=== PATIENT | male | born 1940 | race Caucasian/White ===

== ENCOUNTER 2016-03-27 21:55 | Inpatient (IN) | payer MEDICARE ==
[2016-03-27 22:51] LABS: ABSOLUTE LYMPHOCYTES (AUTO) 0.8 10^3/uL (0.5-4.7); ABSOLUTE MONOCYTES (AUTO) 1.2 10^3/uL (0.1-1.4); ABSOLUTE NEUT (AUTO) 7.1 10^3/uL (1.7-8.2); BASOPHILS % (AUTO) 0.2 % (0-2); EOSINOPHILS % (AUTO) 0.2 % (0-6); HEMATOCRIT 36.6 % (37.9-51.0); HEMOGLOBIN 12.2 g/dL (13.5-17.0); LYMPHOCYTES % (AUTO) 8.8 % (13-45); MEAN CORPUSCULAR HEMOGLOBIN 31.4 pg (27.0-33.4); MEAN CORPUSCULAR HGB CONC 33.3 g/dL (32.0-36.0); MEAN CORPUSCULAR VOLUME 94 fl (80-97); MONOCYTES % (AUTO) 13.6 % (3-13); RED BLOOD COUNT 3.89 10^6/uL (4.35-5.55); RED CELL DISTRIBUTION WIDTH 13.4 % (11.5-14.0); SEGMENTED NEUTROPHILS % (AUTO) 77.2 % (42-78); WHITE BLOOD COUNT 9.2 10^3/uL (4.0-10.5)
[2016-03-27 23:02] LABS: ALANINE AMINOTRANSFERASE 55 U/L (21-72); ALBUMIN 4.2 g/dL (3.5-5.0); ALKALINE PHOSPHATASE 69 U/L (38-126); ANION GAP 17 (5-19); ASPARTATE AMINO TRANSFERASE 64 U/L (17-59); BILIRUBIN,TOTAL 0.7 mg/dL (0.2-1.3); BLOOD UREA NITROGEN 50 mg/dL (7-20); CALCIUM 9.7 mg/dL (8.4-10.2); CARBON DIOXIDE 25 mmol/L (22-30); CHLORIDE 106 mmol/L (98-107); CREATINE KINASE 962 U/L (55-170); CREATININE RESULT 1.74 mg/dL (0.52-1.25); GLUCOSE 111 mg/dL (75-110); SODIUM 147.5 mmol/L (137-145); TOTAL PROTEIN 7.2 g/dL (6.3-8.2)
[2016-03-27 23:14] LABS: CREATINE KINASE MB 4.32 ng/mL (<4.55)
[2016-03-27 23:17] LABS: TROPONIN I 0.069 ng/mL
[2016-03-28 00:38] LABS: AMORPHOUS SEDIMENT,URINE TRACE /HPF; APPEARANCE,URINE CLOUDY; BILIRUBIN,URINE NEGATIVE (NEGATIVE); GLUCOSE, URINE NEGATIVE (NEGATIVE); KETONES,URINE NEGATIVE (NEGATIVE); LEUKOCYTE ESTERASE,URINE LARGE (NEGATIVE); NITRITE,URINE POSITIVE (NEGATIVE); PROTEIN,URINE 100 mg/dL (NEGATIVE); URINE SPECIFIC GRAVITY 1.024; UROBILINOGEN,URINE NEGATIVE mg/dL (<2.0)
[2016-03-28] MEDS ORDERED: CEFTRIAXONE 1 GM/D5W RTU 50 ML IV ONE (00:49)
[2016-03-28] MEDS ORDERED: NORMAL SALINE 1000 ML 500 ML IV ONE (00:49)
--- NOTE | 2016-03-28 04:35 | ER Document Report ---
ED General - General Chief Complaint: Fall Injury Stated Complaint: FALL,NECK PAIN Mode of Arrival: Medic Information source: Patient, Relative Notes: Patient is a 75-year-old male who presents to the ER today for fall today. Patient states that he remembers the fall and that he "slid off the couch" because he was apparently watching the neighbor but does not remember how he fell on the floor or what he hit. He does not think he hit his head but he is unsure. He is complaining of some neck pain at this time, some right hip pain. Family is present and states that patient also fell the day before. He lives by himself. Patient does not know if he's had a fever or not. Family states that he has been altered as they have caught him "staring off into space " and not answering questions appropriately when asked. They check on him apparently 1-3 times per day to give him his medications. They state that he is usually independent walking around at home without any issues. TRAVEL OUTSIDE OF THE [place] IN LAST 30 DAYS: No - Related Data Allergies/Adverse Reactions: No Known Allergies Allergy (Unverified 05/26/13 18:10) Home Medications: Current Home Medications Albuterol Sulfate [Ventolin Hfa] 1 - 2 puff IH Q4 PRN 03/28/16 [History] Aspirin 81 mg PO DAILY 03/28/16 [History] Atorvastatin Calcium 40 mg PO DAILY 03/28/16 [History] Carvedilol [Coreg] 1 tab PO Q12 03/28/16 [History] Cetirizine HCl [Zyrtec] 10 mg PO DAILY 03/28/16 [History] Cholecalciferol (Vitamin D3) [Vitamin D3] 03/28/16 [History] Finasteride 5 mg PO DAILY 03/28/16 [History] Furosemide 20 mg PO ASDIR PRN 03/28/16 [History] Lisinopril 10 mg PO DAILY 03/28/16 [History] Phenobarbital [Phenobarbital 64.8 Mg Tablet] 2 tab PO DAILY 03/28/16 [History] Tamsulosin HCl [Flomax 0.4 mg Cap.sr] 0.4 mg PO DAILY 03/28/16 [History] Umeclidinium [place] [Incruse Ellipta] 62.5 mcg IH 03/28/16 [History] Past Medical History - General Information source: Patient, Relative, Emergency Med Personnel - Social History Smoking Status: Current Every Day Smoker Frequency of alcohol use: None Drug Abuse: None Family History: Reviewed & Not Pertinent Patient has suicidal ideation: No Patient has homicidal ideation: No - Past Medical History Cardiac Medical History: Reports: Hx Heart Attack Pulmonary Medical History: Denies: Hx Tuberculosis Neurological Medical History: Reports: Hx Seizures Psychiatric Medical History: Denies: Hx Depression Past Surgical History: Reports: Hx Abdominal Surgery - perforated hernia, Hx Cardiac Surgery - STENT - Immunizations Hx Diphtheria, Pertussis, Tetanus Vaccination: Yes Hx Pneumococcal Vaccination: 01/02/11 Review of Systems - Review of Systems Constitutional: No symptoms reported EENT: No symptoms reported Cardiovascular: No symptoms reported Respiratory: No symptoms reported Gastrointestinal: No symptoms reported Genitourinary: No symptoms reported Male Genitourinary: No symptoms reported Musculoskeletal: See HPI Skin: No symptoms reported Hematologic/Lymphatic: No symptoms reported Neurological/Psychological: See HPI Physical Exam - Vital signs Vitals: Temp Pulse Resp BP Pulse Ox 99.4 F 84 21 H 90/55 L 96 03/27/16 22:00 03/27/16 22:00 03/27/16 22:00 03/27/16 22:00 03/27/16 22:00 - Notes Notes: PHYSICAL EXAMINATION: GENERAL: chronically ill appearing, confused, but in no acute distress. HEAD: Atraumatic, normocephalic. EYES: Pupils equal round and reactive to light, extraocular movements intact, sclera anicteric, conjunctiva are normal. NECK: Normal range of motion, supple without lymphadenopathy LUNGS: productive cough, No wheezes rales or rhonchi. HEART: Regular rate and rhythm without murmurs ABDOMEN: Soft, no tenderness. No guarding, no rebound BACK: no vertebral tenderness, normal ROM GI/: no CVA tenderness EXTREMITIES: Normal range of motion, no pitting edema. No cyanosis. NEUROLOGICAL: answers questions appropriately only occasionally, confused, Cranial nerves grossly intact. Normal sensory/motor exams. SKIN: Warm, Dry, normal turgor, no rashes or lesions noted Course - Re-evaluation Re-evalutation: 03/28/16 05:43 pt has acute renal failure as seen on CMP with a normal WBC and elevated troponins, he has had elevated troponins in the past but these are higher than his usual at 0.069 and 0.070 consecutively here more than 4 hours apart. EKG shows PVCs that were not present in 2014. Pt has a UTI with greater than 182 WBC and nitrites, leukocytes seen on urinalysis. He is generally weak, almost falling to the floor when he was attempted to get out of bed with nurses assistance. Family states he is altered per his normal. pt has been hypotensive , alternating between 90/55 to as high as 121/66, but sitting in bed is normotensive for the most part. Dr. Barnes initially refused admission twice, stating he doesn't meet sepsis criteria, which I agree with, but pt is 75 years old, generally weak, UTI with acute renal failure and hypernatremia. Dr. Barnes after third phone call agrees to admit patient to the hospital. - Vital Signs Vital signs: Temp Pulse Resp BP Pulse Ox 98.8 F 81 25 H 117/71 100 03/28/16 00:49 03/28/16 00:49 03/28/16 04:11 03/28/16 04:11 03/28/16 04:11 - Laboratory Result Diagrams: 03/27/16 22:32 03/27/16 22:32 Laboratory results interpreted by me: 03/27/16 03/27/16 03/27/16 22:32 22:32 23:34 RBC 3.89 L Hgb 12.2 L Hct 36.6 L Lymphocytes % 8.8 L Monocytes % 13.6 H Sodium 147.5 H BUN 50 H Creatinine 1.74 H Est GFR ( Amer) 46 L Est GFR (Non-Af Amer) 38 L Glucose 111 H AST 64 H Creatine Kinase 962 H Urine Protein 100 H Urine Blood LARGE H Urine Nitrite POSITIVE H Ur Leukocyte Esterase LARGE H Discharge - Discharge Clinical Impression: Hypernatremia UTI (urinary tract infection) Qualifiers: Urinary tract infection type: site unspecified Hematuria presence: with hematuria Qualified Code(s): N39.0 - Urinary tract infection, site not specified Rhabdomyolysis Qualifiers: Rhabdomyolysis type: non-traumatic Qualified Code(s): M62.82 - Rhabdomyolysis Acute renal failure Qualifiers: Acute renal failure type: unspecified Qualified Code(s): N17.9 - Acute kidney failure, unspecified Condition: Stable Disposition: ADMITTED INPATIENT Admitting Provider: Hospitalist Unit Admitted: Telemetry
[2016-03-28] MEDS ORDERED: ONDANSETRON HCL INJ/PF 4 MG/2 ML SDV IV PRN (04:39)
[2016-03-28] MEDS ORDERED: MAG HYDROX/AL HYDROX/SIMETH SUSP 30 ML UDCUP PO PRN (04:39)
[2016-03-28] MEDS ORDERED: MAGNESIUM HYDROXIDE SUSP 30 ML UDCUP PO PRN (04:39)
[2016-03-28] MEDS ORDERED: NORMAL SALINE 1000 ML 1,000 ML IV SCH (04:45)
[2016-03-28] MEDS ORDERED: NICOTINE 14 MG/24 HR PATCH.TD24 TD ONE (06:30)
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
[2016-03-28] MEDS ORDERED: ALBUTEROL SULFATE HFA (90 MCG/PUFF) 8 GM MDI (1 MDI/ER DISP) IH PRN (07:44)
[2016-03-28] MEDS ORDERED: PHARMACY COMMUNICATION ORDER MC NR (07:45)
[2016-03-28] MEDS ORDERED: IPRATROPIUM/ALBUTEROL 0.5-2.5 MG/3 ML AMPUL NEB SCH (08:00)
[2016-03-28] MEDS ORDERED: ALBUTEROL SULFATE HFA (90 MCG/PUFF) 200 PUFF/8.5 GM MDI IH PRN (08:08)
[2016-03-28] MEDS: CARVEDILOL 6.25 MG TABLET PO SCH ×2 (08:40→21:28)
[2016-03-28] MEDS: ATORVASTATIN CALCIUM 40 MG TABLET PO SCH (08:41)
[2016-03-28] MEDS: DOCUSATE SODIUM 100 MG CAPSULE PO SCH ×2 (08:41→17:44)
[2016-03-28] MEDS: PHENOBARBITAL 64.8 MG TABLET PO SCH (08:42)
[2016-03-28] MEDS: ACETAMINOPHEN 325 MG TABLET PO PRN (08:42)
[2016-03-28] MEDS: ASPIRIN 81 MG TABLET, CHEWABLE PO SCH (08:42)
[2016-03-28 08:43] LABS: ANION GAP 14 (5-19); BLOOD UREA NITROGEN 46 mg/dL (7-20); CALCIUM 9.1 mg/dL (8.4-10.2); CARBON DIOXIDE 23 mmol/L (22-30); CHLORIDE 109 mmol/L (98-107); CREATININE RESULT 1.43 mg/dL (0.52-1.25); GLUCOSE 115 mg/dL (75-110); POTASSIUM 4.2 mmol/L (3.6-5.0); SODIUM 145.6 mmol/L (137-145)
[2016-03-28] MEDS ORDERED: ACETAMINOPHEN 325 MG TABLET PO ONE (09:15)
--- NOTE | 2016-03-28 09:24 | EKG REPORT ---
SEVERITY:- ABNORMAL ECG - SINUS RHYTHM MULTIFORM VENTRICULAR PREMATURE COMPLEXES PROBABLE INFERIOR INFARCT, AGE INDETERMINATE CONSIDER POSTERIOR WALL INVOLVEMENT LATERAL LEADS ARE ALSO INVOLVED : Confirmed by: Adam Gilbert MD 28-Mar-2016 09:24:03
[2016-03-28] MEDS ORDERED: PIPERACILLIN SODIUM/TAZOBACTAM 2.25 GM in NORMAL SALINE 50 ML IV ONE (10:00)
[2016-03-28] MEDS ORDERED: CEFTRIAXONE 1 GM/D5W RTU 50 ML IV SCH (10:00)
[2016-03-28] MEDS: CETIRIZINE 10 MG TABLET PO SCH (11:15)
[2016-03-28] MEDS: FINASTERIDE 5 MG TABLET PO SCH (11:15)
[2016-03-28] MEDS: METHYLPREDNISOLONE INJ 125 MG/2 ML SDV IV SCH ×2 (11:16→17:44)
[2016-03-28] MEDS: HEPARIN SOD (PORCINE) 5,000 UNIT/ML 1 ML SYRINGE SUBCUT SCH ×3 (11:20→21:27)
[2016-03-28] MEDS ORDERED: PIPERACILLIN SODIUM/TAZOBACTAM 2.25 GM in NORMAL SALINE 50 ML IV SCH (12:00)
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
[2016-03-28] MEDS: PIPERACILLIN SODIUM/TAZOBACTAM 2.25 GM in NORMAL SALINE 50 ML IV SCH ×2 (16:04→21:27)
[2016-03-28] MEDS: IPRATROPIUM/ALBUTEROL 0.5-2.5 MG/3 ML AMPUL NEB SCH ×2 (16:13→20:37)
[2016-03-28] MEDS: NORMAL SALINE 1000 ML 1,000 ML IV PRN (17:40)
[2016-03-28] MEDS: TAMSULOSIN HCL 0.4 MG CAP.SR.24H PO SCH (17:44)
[2016-03-28] MEDS ORDERED: SCOPOLAMINE HYDROBROMIDE 1.5 MG PATCH.TD72 TD ONE (21:48)
[2016-03-28] MEDS ORDERED: FLUTICASONE NASAL SPRAY 50 MCG/SPRY 120 SPRAY/16 GM NASL ONE (22:15)
[2016-03-28] MEDS ORDERED: FLUTICASONE NASAL SPRAY 50 MCG/SPRY 120 SPRAY/16 GM ONE (23:14)
[2016-03-28] MEDS ORDERED: SCOPOLAMINE HYDROBROMIDE 1.5 MG PATCH.TD72 ONE (23:14)
[2016-03-29] MEDS: PIPERACILLIN SODIUM/TAZOBACTAM 2.25 GM in NORMAL SALINE 50 ML IV SCH ×4 (02:35→21:57)
[2016-03-29] MEDS: METHYLPREDNISOLONE INJ 125 MG/2 ML SDV IV SCH ×3 (02:35→17:41)
[2016-03-29] MEDS: HEPARIN SOD (PORCINE) 5,000 UNIT/ML 1 ML SYRINGE SUBCUT SCH ×3 (05:30→22:02)
[2016-03-29 07:02] LABS: ABSOLUTE LYMPHOCYTES (AUTO) 0.7 10^3/uL (0.5-4.7); ABSOLUTE MONOCYTES (AUTO) 0.6 10^3/uL (0.1-1.4); ABSOLUTE NEUT (AUTO) 7.8 10^3/uL (1.7-8.2); BASOPHILS % (AUTO) 0.1 % (0-2); HEMATOCRIT 30.6 % (37.9-51.0); HEMOGLOBIN 10.4 g/dL (13.5-17.0); HGB HCT DIFFERENCE 0.6; LYMPHOCYTES % (AUTO) 8.2 % (13-45); MEAN CORPUSCULAR HEMOGLOBIN 31.7 pg (27.0-33.4); MEAN CORPUSCULAR VOLUME 93 fl (80-97); MONOCYTES % (AUTO) 6.4 % (3-13); RED BLOOD COUNT 3.28 10^6/uL (4.35-5.55); RED CELL DISTRIBUTION WIDTH 13.4 % (11.5-14.0); SEGMENTED NEUTROPHILS % (AUTO) 85.3 % (42-78); WHITE BLOOD COUNT 9.1 10^3/uL (4.0-10.5)
[2016-03-29 07:24] LABS: ANION GAP 12 (5-19); BLOOD UREA NITROGEN 43 mg/dL (7-20); CALCIUM 8.3 mg/dL (8.4-10.2); CARBON DIOXIDE 20 mmol/L (22-30); CHLORIDE 112 mmol/L (98-107); CREATINE KINASE 644 U/L (55-170); CREATININE RESULT 1.43 mg/dL (0.52-1.25); GLUCOSE 117 mg/dL (75-110); POTASSIUM 4.3 mmol/L (3.6-5.0); SODIUM 143.6 mmol/L (137-145)
[2016-03-29] MEDS: IPRATROPIUM/ALBUTEROL 0.5-2.5 MG/3 ML AMPUL NEB SCH ×4 (07:45→19:54)
[2016-03-29] MEDS ORDERED: NORMAL SALINE 1000 ML 1,000 ML IV ONE (08:13)
[2016-03-29] MEDS ORDERED: FUROSEMIDE 20 MG TABLET PO ONE (11:00)
[2016-03-29] MEDS: DOCUSATE SODIUM 100 MG CAPSULE PO SCH ×2 (11:03→17:41)
[2016-03-29] MEDS: ASPIRIN 81 MG TABLET, CHEWABLE PO SCH (11:03)
[2016-03-29] MEDS: FINASTERIDE 5 MG TABLET PO SCH (11:03)
[2016-03-29] MEDS: ATORVASTATIN CALCIUM 40 MG TABLET PO SCH (11:04)
[2016-03-29] MEDS: PHENOBARBITAL 64.8 MG TABLET PO SCH (11:04)
[2016-03-29] MEDS: CETIRIZINE 10 MG TABLET PO SCH (11:06)
[2016-03-29] MEDS: FLUTICASONE NASAL SPRAY 50 MCG/SPRY 120 SPRAY/16 GM NASL SCH (11:06)
[2016-03-29] MEDS: TIOTROPIUM BROMIDE DPI 5 CAP/KIT (18 MCG/CAP) IH SCH (11:07)
[2016-03-29] MEDS: NORMAL SALINE 1000 ML 1,000 ML IV PRN ×2 (11:08→21:57)
[2016-03-29] MEDS: CARVEDILOL 6.25 MG TABLET PO SCH ×2 (11:09→21:58)
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
[2016-03-29] MEDS: TAMSULOSIN HCL 0.4 MG CAP.SR.24H PO SCH (17:41)
[2016-03-30] MEDS: METHYLPREDNISOLONE INJ 125 MG/2 ML SDV IV SCH (02:59)
[2016-03-30] MEDS: PIPERACILLIN SODIUM/TAZOBACTAM 2.25 GM in NORMAL SALINE 50 ML IV SCH ×3 (03:02→16:07)
[2016-03-30] MEDS: NORMAL SALINE 1000 ML 1,000 ML IV PRN (04:25)
[2016-03-30] MEDS: HEPARIN SOD (PORCINE) 5,000 UNIT/ML 1 ML SYRINGE SUBCUT SCH ×3 (05:40→21:45)
[2016-03-30 05:41] LABS: ABSOLUTE LYMPHOCYTES (AUTO) 0.8 10^3/uL (0.5-4.7); ABSOLUTE MONOCYTES (AUTO) 0.9 10^3/uL (0.1-1.4); HEMATOCRIT 30.8 % (37.9-51.0); HEMOGLOBIN 10.4 g/dL (13.5-17.0); HGB HCT DIFFERENCE 0.4; LYMPHOCYTES % (AUTO) 8.4 % (13-45); MEAN CORPUSCULAR HEMOGLOBIN 31.4 pg (27.0-33.4); MEAN CORPUSCULAR HGB CONC 33.7 g/dL (32.0-36.0); MEAN CORPUSCULAR VOLUME 93 fl (80-97); MONOCYTES % (AUTO) 9.2 % (3-13); RED BLOOD COUNT 3.31 10^6/uL (4.35-5.55); RED CELL DISTRIBUTION WIDTH 13.3 % (11.5-14.0); SEGMENTED NEUTROPHILS % (AUTO) 82.4 % (42-78); WHITE BLOOD COUNT 9.8 10^3/uL (4.0-10.5)
[2016-03-30 06:06] LABS: ANION GAP 10 (5-19); BLOOD UREA NITROGEN 39 mg/dL (7-20); CALCIUM 8.2 mg/dL (8.4-10.2); CARBON DIOXIDE 21 mmol/L (22-30); CHLORIDE 110 mmol/L (98-107); GLUCOSE 133 mg/dL (75-110); POTASSIUM 4.3 mmol/L (3.6-5.0)
[2016-03-30] MEDS: IPRATROPIUM/ALBUTEROL 0.5-2.5 MG/3 ML AMPUL NEB SCH (07:39)
--- NOTE | 2016-03-30 08:34 | EKG REPORT ---
SEVERITY:- ABNORMAL ECG - ATRIAL FIBRILLATION INFERIOR INFARCT, AGE INDETERMINATE CONSIDER POSTERIOR WALL INVOLVEMENT LATERAL LEADS ARE ALSO INVOLVED : Confirmed by: Adam Gilbert MD 30-Mar-2016 08:33:45
[2016-03-30] MEDS ORDERED: DILTIAZEM HCL INJ 25 MG/5 ML VIAL IV ONE (08:48)
[2016-03-30] MEDS ORDERED: METHYLPREDNISOLONE INJ 125 MG/2 ML SDV IV SCH (09:18)
[2016-03-30] MEDS ORDERED: FUROSEMIDE INJ/PF 20 MG/2 ML SDV IV ONE ×2 (09:18→11:25)
--- NOTE | 2016-03-30 09:23 | PDOC PROGRESS REPORT ---
Subjective Progress Note for:: 03/30/16 Subjective:: Patient has chronic shortness of breath. He asked me seriously when he can smoke again. I advised him that he should never smoke again. He was not happy with this answer. Nursing reports that patient's heart rate has been in the 140s to 150s today. His blood pressure stable. He denies chest pain. Patient denies fever, chills, headache, new focal weakness, abdominal pain, nausea, vomiting, diarrhea, constipation. Physical Exam Vital Signs: Temp Pulse Resp BP Pulse Ox 97.4 F 64 18 120/61 97 03/30/16 03:22 03/30/16 07:39 03/30/16 07:39 03/30/16 03:22 03/30/16 03:22 Intake & Output 03/29/16 03/30/16 03/31/16 06:59 06:59 06:59 Intake Total 4200 6060 Output Total 1040 1750 Balance 3160 4310 Weight 92.5 kg 97 kg GENERAL: No acute distress, hard of hearing HEENT: Conjunctiva clear, nonicteric, moist mucous membranes, no JVD, midline trachea RESPIRATORY: Bilateral inspiratory/expiratory wheezes CARDIAC: Irregular/tachycardic ABDOMEN: Soft, nondistended, nontender, positive bowel sounds, no rebound, no guarding EXTREMETIES: Trace bilateral lower extremity edema NEUROLOGIC: Alert, oriented to person/place/time, CN's grossly intact, no focal deficits SKIN: No rash, wounds PSYCH: Normal mood, normal affect Results Laboratory Results: 03/30/16 05:00 03/30/16 05:00 03/30/16 03/30/16 05:00 05:00 WBC 9.8 RBC 3.31 L Hgb 10.4 L Hct 30.8 L MCV 93 MCH 31.4 MCHC 33.7 RDW 13.3 Plt Count 166 Seg Neutrophils % 82.4 H Lymphocytes % 8.4 L Monocytes % 9.2 Eosinophils % 0.0 Basophils % 0.0 Absolute Neutrophils 8.0 Absolute Lymphocytes 0.8 Absolute Monocytes 0.9 Absolute Eosinophils 0.0 Absolute Basophils 0.0 Sodium 141.0 Potassium 4.3 Chloride 110 H Carbon Dioxide 21 L Anion Gap 10 BUN 39 H Creatinine 1.20 Est GFR ( Amer) > 60 Est GFR (Non-Af Amer) 59 L Glucose 133 H Calcium 8.2 L 12/26/16 06:40 Creatine Kinase 644 H Impressions: Cervical Spine CT 03/27/16 22:16 IMPRESSION: CHRONIC DEGENERATIVE CHANGES. NO ACUTE FINDINGS. Head CT 03/27/16 22:16 IMPRESSION: NO ACUTE INTRACRANIAL PROCESS. NO SIGNIFICANT CHANGE FROM PRIOR STUDY. Chest X-Ray 03/27/16 22:25 IMPRESSION: THERE IS A ROUNDED DENSITY PROJECTING OVER THE RIGHT HILUM BEHIND THE HEART SHADOW WHICH MAY REPRESENT SUPERIMPOSED STRUCTURES HOWEVER UNDERLYING MASS/ADENOPATHY IS NOT ENTIRELY EXCLUDED. CONSIDER FOLLOW-UP EVALUATION WITH REPEAT UPRIGHT AND LATERAL CHEST RADIOGRAPH VERSUS CT. Hip X-Ray 03/27/16 22:25 IMPRESSION: NO ACUTE OSSEOUS ABNORMALITY. Chest CT 03/28/16 01:46 IMPRESSION: No masses. Extensive coronary artery calcification. Assessment & Plan - Diagnosis (1) Acute hypoxemic respiratory failure Is this a current diagnosis for this admission?: YesPlan: Continue oxygen supplementation. (2) Atrial fibrillation with RVR Is this a current diagnosis for this admission?: YesPlan: Patient has no known history of prior atrial fibrillation per daughter's report or per review of prior records. I will give Cardizem 20 mg IV 1 dose. Discontinue Coreg and start Toprol-XL 50 mg daily. Discontinue albuterol nebulizer treatments and use Xopenex. Consult Dr. Leung of cardiology. Patient normally sees Dr. Woodward of cardiology in Dr. Leung's office. (3) Heart failure, systolic, with acute decompensation Is this a current diagnosis for this admission?: YesPlan: Give Lasix 40 mg IV 1 dose. Discontinue IV fluids. Discontinue Coreg and start Toprol-XL. Consult cardiology. Continue to hold lisinopril for now secondary to acute kidney injury. (4) COPD exacerbation Is this a current diagnosis for this admission?: YesPlan: Continue IV Solu-Medrol. Change albuterol to Xopenex secondary to tachycardia. Continue Spiriva. Discontinue smoking. (5) Acute renal failure Qualifiers: Acute renal failure type: unspecified Qualified Code(s): N17.9 - Acute kidney failure, unspecified Is this a current diagnosis for this admission?: YesPlan: Nearly resolved. Discontinue IV fluid secondary to decompensated CHF. Continue to hold lisinopril for now. (6) Rhabdomyolysis Qualifiers: Rhabdomyolysis type: traumatic Encounter type: initial encounter Qualified Code(s): T79.6XXA - Traumatic ischemia of muscle, initial encounter Is this a current diagnosis for this admission?: YesPlan: Resolved. (7) Sepsis Qualifiers: Sepsis type: sepsis due to unspecified organism Qualified Code(s): A41.9 - Sepsis, unspecified organism Is this a current diagnosis for this admission?: Yes (8) UTI (urinary tract infection) Qualifiers: Urinary tract infection type: site unspecified Hematuria presence: with hematuria Qualified Code(s): N39.0 - Urinary tract infection, site not specified Is this a current diagnosis for this admission?: YesPlan: Continue Zosyn pending further culture and sensitivity. (9) Tobacco abuse Is this a current diagnosis for this admission?: Yes (10) Do not resuscitate Is this a current diagnosis for this admission?: Yes (11) Seizure disorder Is this a current diagnosis for this admission?: YesPlan: Continue phenobarbital. - Time Time Spent with patient: 35 or more minutes
[2016-03-30] MEDS: ASPIRIN 81 MG TABLET, CHEWABLE PO SCH (09:54)
[2016-03-30] MEDS: PHENOBARBITAL 64.8 MG TABLET PO SCH (09:54)
[2016-03-30] MEDS: DOCUSATE SODIUM 100 MG CAPSULE PO SCH ×2 (09:55→18:44)
[2016-03-30] MEDS: CETIRIZINE 10 MG TABLET PO SCH (09:55)
[2016-03-30] MEDS: METOPROLOL SUCCINATE 50 MG TAB.SR.24H PO SCH (09:55)
[2016-03-30] MEDS: FINASTERIDE 5 MG TABLET PO SCH (09:55)
[2016-03-30] MEDS ORDERED: DILTIAZEM HCL/D5W 125 ML IV PRN (10:04)
--- NOTE | 2016-03-30 10:06 | Progress Note ---
Provider Note Provider Note: ADDENDUM: 1. AFIB/RVR- No response to Cardizem 20mg IV x 1 dose. Start Cardizem drip.
[2016-03-30] MEDS ORDERED: FUROSEMIDE INJ/PF 40 MG/4 ML SDV IV ONE (10:15)
[2016-03-30] MEDS: METHYLPREDNISOLONE INJ 40 MG/1 ML SDV IV SCH ×2 (10:26→18:44)
[2016-03-30] MEDS: TIOTROPIUM BROMIDE DPI 5 CAP/KIT (18 MCG/CAP) IH SCH (10:26)
[2016-03-30] MEDS: ATORVASTATIN CALCIUM 40 MG TABLET PO SCH (10:26)
[2016-03-30] MEDS: FLUTICASONE NASAL SPRAY 50 MCG/SPRY 120 SPRAY/16 GM NASL SCH (10:27)
[2016-03-30] MEDS ORDERED: DIGOXIN INJ 0.5 MG/2 ML AMPULE IV ONE ×2 (11:25→13:45)
[2016-03-30] MEDS: LEVALBUTEROL HCL NEB 0.63 MG/3 ML AMPUL NEB PRN (12:17)
[2016-03-30] MEDS: LEVALBUTEROL HCL NEB 0.63 MG/3 ML AMPUL NEB SCH ×2 (14:16→20:33)
[2016-03-30] MEDS ORDERED: AMIODARONE HCL 150 MG in DEXTROSE 5%-WATER 100 ML IV ONE (17:00)
[2016-03-30] MEDS: DEXTROSE 5%-WATER 500 ML with AMIODARONE HCL 900 MG IV PRN ×2 (17:04)
--- NOTE | 2016-03-30 17:37 | Progress Note ---
Provider Note Provider Note: ADDENDUM: Urine culture growing Citrobacter sensitive to doxycycline. Discontinue IV Zosyn. Start oral doxycycline.
[2016-03-30] MEDS: TAMSULOSIN HCL 0.4 MG CAP.SR.24H PO SCH (18:44)
[2016-03-30] MEDS: DOXYCYCLINE HYCLATE 100 MG TABLET PO SCH (21:40)
[2016-03-30] MEDS ORDERED: DILTIAZEM HCL/D5W 125 MG/125 ML RTUINJ IV SCH (22:00)
[2016-03-30] MEDS: ACETAMINOPHEN 325 MG TABLET PO PRN (23:48)
[2016-03-31] MEDS: METHYLPREDNISOLONE INJ 40 MG/1 ML SDV IV SCH ×3 (01:57→17:19)
[2016-03-31] MEDS: HEPARIN SOD (PORCINE) 5,000 UNIT/ML 1 ML SYRINGE SUBCUT SCH (05:41)
[2016-03-31 07:00] LABS: ABSOLUTE LYMPHOCYTES (AUTO) 0.8 10^3/uL (0.5-4.7); ABSOLUTE MONOCYTES (AUTO) 0.7 10^3/uL (0.1-1.4); ABSOLUTE NEUT (AUTO) 11.4 10^3/uL (1.7-8.2); HEMATOCRIT 35.1 % (37.9-51.0); HEMOGLOBIN 11.9 g/dL (13.5-17.0); HGB HCT DIFFERENCE 0.6; LYMPHOCYTES % (AUTO) 6.4 % (13-45); MEAN CORPUSCULAR HEMOGLOBIN 31.2 pg (27.0-33.4); MEAN CORPUSCULAR HGB CONC 33.9 g/dL (32.0-36.0); MEAN CORPUSCULAR VOLUME 92 fl (80-97); MONOCYTES % (AUTO) 5.4 % (3-13); RED BLOOD COUNT 3.82 10^6/uL (4.35-5.55); RED CELL DISTRIBUTION WIDTH 13.3 % (11.5-14.0); SEGMENTED NEUTROPHILS % (AUTO) 88.2 % (42-78)
[2016-03-31 07:02] LABS: ANION GAP 12 (5-19); BLOOD UREA NITROGEN 30 mg/dL (7-20); CALCIUM 9.1 mg/dL (8.4-10.2); CARBON DIOXIDE 23 mmol/L (22-30); CHLORIDE 105 mmol/L (98-107); CREATININE RESULT 1.12 mg/dL (0.52-1.25); GLUCOSE 145 mg/dL (75-110); POTASSIUM 4.1 mmol/L (3.6-5.0); SODIUM 139.5 mmol/L (137-145)
[2016-03-31] MEDS: LEVALBUTEROL HCL NEB 0.63 MG/3 ML AMPUL NEB SCH ×3 (08:25→20:48)
[2016-03-31 09:03] LABS: FREE T3 2.95 pg/mL (2.77-5.27)
[2016-03-31] MEDS ORDERED: METOPROLOL TARTRATE PF/INJ 5 MG/5 ML SDV IV ONE (09:15)
[2016-03-31 09:17] LABS: THYROID STIMULATING HORMONE 1.7 uIU/mL (0.47-4.68)
[2016-03-31] MEDS: CETIRIZINE 10 MG TABLET PO SCH (09:32)
[2016-03-31] MEDS: FINASTERIDE 5 MG TABLET PO SCH (09:32)
[2016-03-31] MEDS: METOPROLOL SUCCINATE 50 MG TAB.SR.24H PO SCH (09:32)
[2016-03-31] MEDS: DOXYCYCLINE HYCLATE 100 MG TABLET PO SCH ×2 (09:33→22:30)
[2016-03-31] MEDS: ATORVASTATIN CALCIUM 40 MG TABLET PO SCH (09:33)
[2016-03-31] MEDS: PHENOBARBITAL 64.8 MG TABLET PO SCH (09:33)
[2016-03-31] MEDS: DOCUSATE SODIUM 100 MG CAPSULE PO SCH ×2 (09:33→17:25)
[2016-03-31] MEDS: ASPIRIN 81 MG TABLET, CHEWABLE PO SCH (09:34)
[2016-03-31] MEDS: TIOTROPIUM BROMIDE DPI 5 CAP/KIT (18 MCG/CAP) IH SCH (09:35)
[2016-03-31] MEDS: FLUTICASONE NASAL SPRAY 50 MCG/SPRY 120 SPRAY/16 GM NASL SCH (09:35)
[2016-03-31] MEDS ORDERED: FUROSEMIDE INJ/PF 40 MG/4 ML SDV IV ONE (10:45)
[2016-03-31] MEDS ORDERED: ENOXAPARIN SODIUM INJ 100 MG/1 ML DISP.SYRIN SUBCUT ONE (11:00)
[2016-03-31] MEDS ORDERED: FUROSEMIDE INJ/PF 20 MG/2 ML SDV IV SCH (11:45)
[2016-03-31] MEDS ORDERED: MIDAZOLAM 2 MG/2 ML INJ ONE (13:30)
[2016-03-31] MEDS ORDERED: PROPOFOL INJ 200 MG/20 ML VIAL IV ONE (13:30)
--- NOTE | 2016-03-31 14:56 | PDOC PROGRESS REPORT ---
Subjective Progress Note for:: 03/31/16 Subjective:: Patient has continued shortness of breath. He continues to have sustained tachycardia despite being on Cardizem drip and amiodarone by cardiology. I believe Dr. Leung is planning cardioversion today. He denies chest pain. Patient denies fever, chills, headache, new focal weakness, abdominal pain, nausea, vomiting, diarrhea, constipation. Physical Exam Vital Signs: Temp Pulse Resp BP Pulse Ox 98.1 F 146 H 22 H 105/19 L 93 03/31/16 11:55 03/31/16 13:49 03/31/16 13:49 03/31/16 12:32 03/31/16 11:55 Intake & Output 03/30/16 03/31/16 04/01/16 06:59 06:59 06:59 Intake Total 6060 1383 Output Total 1750 5900 1600 Balance 0494 -5068 -1600 Weight 97 kg 94.1 kg GENERAL: No acute distress, hard of hearing HEENT: Conjunctiva clear, nonicteric, moist mucous membranes, no JVD, midline trachea RESPIRATORY: Bilateral inspiratory/expiratory wheezes CARDIAC: Irregular/tachycardic ABDOMEN: Soft, nondistended, nontender, positive bowel sounds, no rebound, no guarding EXTREMETIES: Trace bilateral lower extremity edema NEUROLOGIC: Alert, oriented to person/place/time, CN's grossly intact, no focal deficits SKIN: No rash, wounds PSYCH: Normal mood, normal affect Results Laboratory Results: 03/31/16 06:08 03/31/16 06:08 03/31/16 03/31/16 03/31/16 06:08 06:08 06:08 WBC 13.0 H RBC 3.82 L Hgb 11.9 L Hct 35.1 L MCV 92 MCH 31.2 MCHC 33.9 RDW 13.3 Plt Count 217 Seg Neutrophils % 88.2 H Lymphocytes % 6.4 L Monocytes % 5.4 Eosinophils % 0.0 Basophils % 0.0 Absolute Neutrophils 11.4 H Absolute Lymphocytes 0.8 Absolute Monocytes 0.7 Absolute Eosinophils 0.0 Absolute Basophils 0.0 Sodium 139.5 Potassium 4.1 Chloride 105 Carbon Dioxide 23 Anion Gap 12 BUN 30 H Creatinine 1.12 Est GFR ( Amer) > 60 Est GFR (Non-Af Amer) > 60 Glucose 145 H Calcium 9.1 TSH 1.70 Free T4 1.24 Free T3 pg/mL 2.95 03/29/16 03/30/16 06:40 09:35 Creatine Kinase 644 H NT-Pro-B Natriuret Pep 3720 H Impressions: Cervical Spine CT 03/27/16 22:16 IMPRESSION: CHRONIC DEGENERATIVE CHANGES. NO ACUTE FINDINGS. Head CT 03/27/16 22:16 IMPRESSION: NO ACUTE INTRACRANIAL PROCESS. NO SIGNIFICANT CHANGE FROM PRIOR STUDY. Hip X-Ray 03/27/16 22:25 IMPRESSION: NO ACUTE OSSEOUS ABNORMALITY. Chest CT 03/28/16 01:46 IMPRESSION: No masses. Extensive coronary artery calcification. Chest X-Ray 03/31/16 00:00 IMPRESSION: CARDIAC ENLARGEMENT. MILD VASCULAR CONGESTION. Assessment & Plan - Diagnosis (1) Acute hypoxemic respiratory failure Is this a current diagnosis for this admission?: YesPlan: Continue oxygen supplementation. (2) Atrial fibrillation with RVR Is this a current diagnosis for this admission?: YesPlan: He continues to have sustained tachycardia despite being on Cardizem drip and amiodarone by cardiology. I believe Dr. Leung is planning cardioversion today. Patient is also been placed on Lovenox 90 mg subcutaneous every 12 hours by cardiology. (3) Heart failure, systolic, with acute decompensation Is this a current diagnosis for this admission?: YesPlan: Given Lasix 40 mg IV [address] Leung. I will start Lasix 20 mg IV every 12 hours scheduled. Continue Toprol-XL. Consult cardiology. Continue to hold lisinopril for now secondary to acute kidney injury. (4) COPD exacerbation Is this a current diagnosis for this admission?: YesPlan: Continue IV Solu-Medrol. Continue Xopenex secondary to tachycardia. Continue Spiriva. Discontinue smoking. (5) Acute renal failure Qualifiers: Acute renal failure type: unspecified Qualified Code(s): N17.9 - Acute kidney failure, unspecified Is this a current diagnosis for this admission?: YesPlan: Resolved. Continue to hold lisinopril for now. (6) Rhabdomyolysis Qualifiers: Rhabdomyolysis type: traumatic Encounter type: initial encounter Qualified Code(s): T79.6XXA - Traumatic ischemia of muscle, initial encounter Is this a current diagnosis for this admission?: YesPlan: Resolved. (7) Sepsis Qualifiers: Sepsis type: sepsis due to unspecified organism Qualified Code(s): A41.9 - Sepsis, unspecified organism Is this a current diagnosis for this admission?: Yes (8) UTI (urinary tract infection) Qualifiers: Urinary tract infection type: site unspecified Hematuria presence: with hematuria Qualified Code(s): N39.0 - Urinary tract infection, site not specified Is this a current diagnosis for this admission?: YesPlan: Continue doxycycline for Citrobacter on urine culture. (9) Tobacco abuse Is this a current diagnosis for this admission?: Yes (10) Seizure disorder Is this a current diagnosis for this admission?: YesPlan: Continue phenobarbital. (11) Do not resuscitate Is this a current diagnosis for this admission?: Yes - Time Time Spent with patient: 35 or more minutes
[2016-03-31] MEDS: DEXTROSE 5%-WATER 500 ML with AMIODARONE HCL 900 MG IV PRN ×2 (17:13)
[2016-03-31 17:15] LABS: ANION GAP 10 (5-19); BLOOD UREA NITROGEN 30 mg/dL (7-20); CALCIUM 9.2 mg/dL (8.4-10.2); CARBON DIOXIDE 28 mmol/L (22-30); CHLORIDE 102 mmol/L (98-107); CREATININE RESULT 1.13 mg/dL (0.52-1.25); GLUCOSE 116 mg/dL (75-110); SODIUM 139.8 mmol/L (137-145)
--- NOTE | 2016-03-31 17:21 | EKG REPORT ---
SEVERITY:- ABNORMAL ECG - SINUS RHYTHM PROBABLE INFERIOR INFARCT, AGE INDETERMINATE CONSIDER POSTERIOR WALL INVOLVEMENT LATERAL LEADS ARE ALSO INVOLVED BORDERLINE PROLONGED QT INTERVAL : Confirmed by: Adam Gilbert MD 31-Mar-2016 17:21:06
[2016-03-31] MEDS: TAMSULOSIN HCL 0.4 MG CAP.SR.24H PO SCH (17:25)
[2016-03-31] MEDS ORDERED: NICOTINE 21 MG/24 HR PATCH.TD24 TD ONE (19:00)
--- NOTE | 2016-03-31 20:18 | OPERATIVE REPORT E ---
Operative Report NAME: JESENIA LÓPEZ : 1940 AGE: 75Y DATE OF SURGERY: 03/31/2016 ROOM: 331 OPERATION: Cardioversion of atrial fibrillation with rapid ventricular response to sinus rhythm with biphasic synchronized direct current shock with 200 joules. SURGEON: AYAKA THOMAS M.D. TISSUE REMOVED OR ALTERED: None. TISSUE ALTERED: None. BLOOD LOSS: None. PROCEDURE: Informed consent was obtained from the patient and the patient's daughter. Discussed the benefits and risks of cardioversion including stroke, skin brito, need for temporary or permanent pacemaker, need for *------* and need for defibrillator if the patient develops ventricular arrhythmias. Note that the patient's DNR was temporarily rescinded during the procedure. With anesthesia sedating the patient and managing his airway, defibrillator pads were placed on front and back of the patient's left chest wall the patient was given 1 shock of biphasic synchronized 200 joules direct current and the patient converted to sinus rhythm. The patient's blood pressure, oxygen saturations, and heart rate were within normal limits. Subsequently, the patient did wake up. Although he was lightly confused due to the Diprivan still being in his system. He was able to move all 4 extremities. IMPRESSION: Successful cardioversion of atrial fibrillation with rapid ventricular response to sinus rhythm. PLAN: 1. We will continue the patient on *------*. 2. Continue his other medications later. 3. We will see what the blood pressure is and then start the patient on DIANE inhibitor. DICTATING PHYSICIAN: AYAKA THOMAS M.D. [id number] PHY#: [id number] ID: [id number] JOB#: [id number] ACCT: [id number] cc:AYAKA THOMAS M.D. >
--- NOTE | 2016-03-31 20:18 | PROGRESS NOTE E ---
Progress Note NAME: JESENIA LÓPEZ : 1940 AGE: 75Y DATE: 03/31/2016 ROOM: 331 SUBJECTIVE: Note that the patient continues to be in atrial fibrillation with rapid ventricular response in spite of amiodarone drip and also Cardizem drip at 15 mg per hour. Although he denies any shortness of breath, he does appear to be short of breath, and he has bilateral rhonchi and a few wheezing and bibasilar rales. The patient did put out a good amount of urine after Lasix yesterday. There is no leg edema. The patient denies any chest pain or discomfort. There is no ventricular arrhythmia seen on the monitor. The patient does have some orthopnea but no PND. The patient states he has a cough but nonproductive. OBJECTIVE: VITAL SIGNS: On examination, he is afebrile with a heart rate of 152 beats per minute. He is mildly obese. His blood pressure is 119/90. Respirations are 18 per minute. O2 saturations are 93% on 1 L nasal cannula. HEENT: Head is atraumatic, normocephalic. Eyes: Pupils are equal, round, regular, reactive to light and accommodation. Extraocular movements normal. There is no conjunctival pallor. There is no scleral icterus. ENT is negative. NECK: Supple. There is mild JVD. Carotids are equal; there is no bruit. There is no goiter. Trachea is central. LUNGS: Diminished air entry and prolonged expiration with scattered rhonchi and a few wheezing and bibasilar rales. There is hyperresonance on percussion. CARDIOVASCULAR: S1, S2 are heard. There is variable S1 intensity. There is no S3 gallop. There is no S4 gallop. There is systolic murmur in the left sternal border and the apex. There is no rub. ABDOMEN: Soft, nontender. There is no hepatosplenomegaly. Bowel sounds are well heard. There are no tender areas or masses. EXTREMITIES: Femorals are slightly diminished. There are no femoral bruits. Leg pulses are diminished. There is no pedal edema. There is no DVT or cellulitis. There is no calf tenderness. CENTRAL NERVOUS SYSTEM: The patient is conscious, awake, seems to be oriented x3 with no focal deficit. PSYCHIATRIC: The patient's judgment and insight seem to be intact. He is not agitated or does not appear to be depressed. His 24-hour intake has been 1383 mL; output is 5900 mL. DIAGNOSTIC TESTS: The patient's white count is 13,000; his hemoglobin is 11.9; hematocrit is 35.1; platelet count is 217,000. The patient's sodium is 139.5, potassium 4.1, chloride 105, CO2 23. The patient's BUN is 30; creatinine is 1.12. GFR is greater than 60. Glucose is 145. His calcium is 9.1. His thyroid function tests are normal. His anti-ProBNP is 3720. His chest x-ray shows mild CHF and cardiomegaly. In view of the patient continuing to be in atrial fibrillation with rapid ventricular response in spite of the amiodarone and Cardizem, decision was made to cardiovert the patient to see if this would help his heart failure and also respiratory failure. Hence, Anesthesia was consulted, and the patient was kept n.p.o. for 6 hours with two drips going on, that is, amiodarone and the Cardizem drip. I have discussed with the patient's daughter the benefits and risks of cardioversion. Please detailed procedure note below. Subsequently, Anesthesia came in and sedated the patient and watched airway, and the patient was easily cardioverted with 1 biphasic synchronized DC shock of 200 joules from atrial fibrillation to sinus rhythm, and the patient subsequently, although he still had effects of Diprivan, was moving all four extremities, and there was no evidence of any neurological event. The patient post cardioversion, his sodium was 139.8, potassium 4.0. Chloride was 102. His CO2 was 28. His BUN was 30. Creatinine was 1.13. GFR greater than 60. Glucose was 116. His magnesium was 2.0 and calcium 9.2. Post cardioversion, his heart rate was 67 beats per minute, blood pressure 104/58. Respirations are 18 per minute. His O2 saturation being 94% on 3 L. ASSESSMENT: 1. ATRIAL FIBRILLATION WITH RAPID VENTRICULAR RESPONSE CONVERTED TO SINUS RHYTHM POST CARDIOVERSION. 2. RESPIRATORY FAILURE SECONDARY TO ACUTE EXACERBATION OF CHRONIC OBSTRUCTIVE PULMONARY DISEASE PLUS ACUTE ON CHRONIC CONGESTIVE HEART FAILURE. 3. ACUTE ON CHRONIC CONGESTIVE SYSTOLIC HEART FAILURE SECONDARY TO ATRIAL FIBRILLATION IN A PATIENT WITH CARDIOMYOPATHY WITH SEVERELY DEPRESSED LEFT VENTRICULAR EJECTION FRACTION OF 25-30%. 4. HYPERTENSION. 5. CARDIOMEGALY WITH SEVERELY REDUCED LEFT VENTRICULAR EJECTION FRACTION, ISCHEMIC CARDIOMYOPATHY. 6. 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 7. HISTORY OF SEIZURE DISORDER. None this admission. 8. HISTORY OF CEREBROVASCULAR ACCIDENT. 9. HISTORY OF ENLARGED PROSTATE. Symptoms controlled with medication. 10. HYPERLIPIDEMIA. 11. HISTORY OF TOBACCO ABUSE. 12. URINARY TRACT INFECTION. 13. HISTORY OF RENAL FAILURE. Now renal function normal with a normal GFR. RECOMMENDATIONS: Note that the Cardizem drip was stopped prior to cardioversion. We will continue the patient on amiodarone, continue Lasix. We will add an DIANE inhibitor since the patient has no known allergies. Continue *------* treatment. Continue atorvastatin. Note that the patient was also started on Lovenox 90 mg subcutaneously q.12 hours. We will discuss with the patient's daughter whether the patient will be a candidate for chronic anticoagulation therapy in view of the patient's frequent falls. Continue phenobarbital for his seizure disorder. TIME SPENT: Note 40 minutes spent on this patient with more than 50% of the time spent in direct patient care and also discussions with the patient and patient's daughter. Note that the patient is DNR. His daughter is his surrogate healthcare decision maker. During the time of cardioversion, the patient's DNR was temporarily rescinded, and the patient was reinstated. We will start the patient on DIANE inhibitor. Would recommend starting the patient on antibiotics. PLAN: @ DICTATING PHYSICIAN: AYAKA THOMAS M.D. [id number] 1948 PHY#: [id number] ID: [id number] JOB#: [id number] ACCT: [id number] cc: >
--- NOTE | 2016-03-31 21:48 | CONSULTATION REPORT E ---
Consultation Report NAME: JESENIA LÓPEZ : 1940 AGE: 75Y DATE: 03/30/2016 331 A TO: AYAKA THOMAS M.D. FROM: JONNY RIVAS M.D. Requesting Physician REASON FOR CONSULTATION: Atrial fibrillation with rapid ventricular response. HISTORY OF PRESENT ILLNESS: Patient is a 75-year-old male with known history of COPD but continues to smoke, history of CAD, old GA, and history of stent in an artery most likely right coronary artery with old inferior GA and history of cardiomyopathy with LV ejection fraction of 25-30%, was admitted with frequent falls and had borderline hypotension. He was also found to be in acute renal failure and rhabdomyolysis. He was given IV fluids, and his renal function became normal, but today, 03/30/2016, the patient developed sudden onset of atrial fibrillation with rapid ventricular response. The patient also found to be in acute respiratory failure. Patient with COPD and also congestive heart failure although the patient denies any shortness of breath. He says he has a cough. Although he brings up his sputum, he just swallows it and unable to characterize the color of his sputum. There is no chest pain or discomfort. The patient does not feel any palpitations, and hemodynamically he is stable with a blood pressure remaining within normal limits. There is no leg edema. The patient had some degree of orthopnea but no PND. There are no fevers, chills, or rigors. PAST MEDICAL HISTORY: Past medical history is positive for history of hypertension. Now patient's blood pressure has been low this admission. At present, the blood pressure is within normal limits. There is a history of COPD. The patient continues to smoke. The patient does complain of wheezing, and he has no history of sleep apnea. There is no history of pulmonary embolism or hemoptysis. There is no history of diabetes mellitus or thyroid disease. He has a history of hypertension, history of coronary artery disease, history of old GA most likely inferior wall GA with a right coronary artery stent most likely and history of cardiomyopathy with the last ejection fraction being 25% to 30%. He has no past history of renal failure, but the patient was admitted with acute renal failure with rhabdomyolysis which has been corrected. There is a past history of CVA from which he has fully recovered. He also has a history of seizure disorder, none recently. He has no history of depression or anxiety. There is no history of GI bleed. PAST SURGICAL HISTORY: Past surgical history is positive for hernia surgeries, stent placement after cardiac catheterization. FAMILY HISTORY: Father had GA. Mother has of breast cancer. ALLERGIES: The patient has no known allergies. DISPOSITION: The patient is DNR. His daughter is his surrogate healthcare decision maker. MEDICATIONS: Note the medications have been reviewed from the MAR. REVIEW OF SYSTEMS: CONSTITUTIONAL: Complains of fatigue and weakness but denies any fevers, chills or rigors. HEAD: Denies any headaches or head injury. No recent seizures. EYES: No history of amblyopia or diplopia. No history of amaurosis fugax. EARS: No history of hearing loss. No history of tinnitus. NOSE: No history of hay fever. No history of nosebleeds or nasal polyps. MOUTH: No history of altered taste sensation. No history of ulcers in the mouth. No bleeding from the gums. THROAT: No odynophagia or dysphagia. No recurrent sore throats. SKIN: No history of skin rashes or pruritus. No psoriasis or skin lesions. No skin cancer. No yellowish discoloration of the skin. NECK: No swelling in the neck. No neck pain. No goiter. LUNGS: History of COPD with recent onset of cough which the patient is unable to bring up sputum. He has wheezing and rhonchi. Denies any fever. No hemoptysis. No history of pulmonary embolism. No history of sleep apnea. CARDIOVASCULAR: History of hypertension. History of coronary artery disease and old GA. No recent anginal symptoms in a long time. History of cardiomyopathy. At present, the patient seems to be in acute on chronic systolic heart failure. There is no history of palpitations. No prior history of atrial fibrillation. At present, the patient is in atrial fibrillation with rapid ventricular response in spite of the patient being on Cardizem 15 mg per hour. There is no leg edema. The patient does have some orthopnea but no PND. GASTROINTESTINAL: No history of GI bleed. No history of peptic ulcer disease. No history of fatty food intolerance. No history of altered bowel movements. ENDOCRINE: No history of diabetes mellitus or thyroid disease. No polydipsia or polyuria. No history of heat or cold intolerance. MUSCULOSKELETAL: Denies arthritis or collagen vascular disease. RENAL: There is no past history of renal failure, but the patient was admitted with acute renal failure due to dehydration most likely and hypotension which has resolved with hydration. No symptoms of UTI. History of enlarged prostate symptoms controlled with medication. There is a past history of hematuria, none recently. No pyuria or dysuria. CENTRAL NERVOUS SYSTEM: Past history of CVA, fully recovered. No recent recurrent CVA symptoms or TIA symptoms. No history of sleep apnea. No history of headaches. History of seizure disorder, none recently. PSYCHIATRIC: No history of anxiety or depression. No history of suicidal ideation. VASCULAR: No history of calf claudication. No history of DVT. HEMATOLOGIC: No history of bleeding diathesis. No history of clotting disorders. MEDICATIONS: Note patient's medications have been reviewed in the Medication Administration Record in the EMR. PHYSICAL EXAMINATION: GENERAL: On examination, the patient is mildly obese. In spite of his heart rate being high, he is not in any acute distress. VITAL SIGNS: He is afebrile with a temperature of 97.4 degrees Fahrenheit. Pulse is 147 beats per minute. Blood pressure 125/77. Respirations 24 per minute. O2 saturations are 97% on 2 L nasal cannula. HEENT: Head is atraumatic, normocephalic. Eyes: Pupils are equal, round, regular, reactive to light and accommodation. Extraocular movements normal. There is no conjunctival pallor. There is no scleral icterus. Ears: Tympanic membranes are intact. External auditory canals are clear. Nose: There is no deviated nasal septum. There is no inflammation of the nasal mucosa. Mouth: Mucous membranes are moist. Tongue is moist. There are no ulcers. There is no bleeding from the gums. Throat: There is no redness of the oropharynx. There are no exudates. SKIN: There are no skin rashes. There is no petechiae or ecchymosis. There are no skin lesions. NECK: Supple. There is no JVD. Carotids are equal; there is no bruit. There is no goiter. There is no lymphadenopathy. Trachea is central. LUNGS: Diminished air entry and prolonged expiration. There are scattered rhonchi and wheezing present and bibasilar rales of CHF. There is hyperresonance on percussion. CARDIOVASCULAR: S1, S2 are heard. There is variable S1 intensity. There is no S3 gallop. There is no S4 gallop. There is systolic murmur in left sternal border and the apex. There is no rub. ABDOMEN: Soft, obese, nontender. There is no hepatosplenomegaly. Bowel sounds are well heard. EXTREMITIES: Femorals are diminished. There are no femoral bruits. Leg pulses are diminished. There is no pedal edema. There is no DVT or cellulitis. There is no calf tenderness. CENTRAL NERVOUS SYSTEM: The patient is conscious, awake, alert, oriented x3 with no focal deficits. PSYCHIATRIC: The patient's judgment and insight are intact. His affect is normal. Note that the patient is on 15 mg per hour of Cardizem drip continuously. DIAGNOSTIC TESTS: The patient's sodium is 141, potassium 4.3, cholesterol 110, CO2 21. The patient's BUN is 39; creatinine is 1.2. GFR is slightly reduced at 59. Glucose is 133. Calcium is 8.3. His anti-ProBNP is 3720. His last CPK was 644. His cardiac enzymes have been indeterminate/negative. His white count is 9800; hemoglobin is 10.4; hematocrit is 30.8; platelet count is 166,000. The patient's EKG shows atrial fibrillation with rapid ventricular response. Old inferior wall GA with possible posterior involvement. The patient's chest x-ray shows some mild congestive heart failure with some minimal cardiomegaly. IMPRESSION: 1. Atrial fibrillation with rapid ventricular response. The patient's heart rate continues to be high in spite of 15 mg per hour of Cardizem drip. We will give the patient some doses of digoxin and also beta renu. 2. Respiratory failure acute on chronic secondary to acute exacerbation of chronic obstructive pulmonary disease and congestive heart failure. 3. Acute on chronic systolic heart failure secondary to atrial fibrillation with rapid ventricular response in a patient with a cardiomyopathy with a severely reduced left ventricular ejection fraction 25-30%. 4. Hypertension. 5. Cardiomyopathy with severely reduced left ventricular ejection fraction. 6. 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 7. History of seizure disorder. 8. History of CVA, fully recovered. 9. History of enlarged prostate. 10. Hyperlipidemia. 11. Urinary tract infection. 12. Acute renal failure. Renal function much improved now. It is stage 2 and expect that it will get better. RECOMMENDATIONS: Continue Cardizem. We will give boluses of digoxin as needed and also metoprolol. If this does not work, then we will start the patient on amiodarone drip. TIME SPENT: Note 40 minutes on this patient with more than 50% of the time spent in direct patient care and discussions with the hospitalist, also discussed with the patient and the patient's daughter. We will follow with you. DICTATING PHYSICIAN: AYAKA THOMSA M.D. [id number] PHY#: [id number] ID: [id number] JOB#: [id number] ACCT: [id number] cc:AYAKA THOMAS M.D. >
[2016-03-31] MEDS: LISINOPRIL 5 MG TABLET PO SCH (22:30)
[2016-03-31] MEDS: FUROSEMIDE INJ/PF 20 MG/2 ML SDV IV SCH (22:31)
[2016-03-31] MEDS: ENOXAPARIN SODIUM INJ 100 MG/1 ML DISP.SYRIN SUBCUT SCH (22:31)
[2016-04-01] MEDS: METHYLPREDNISOLONE INJ 40 MG/1 ML SDV IV SCH ×3 (02:42→17:56)
[2016-04-01 03:15] LABS: APPEARANCE,URINE CLEAR; BILIRUBIN,URINE NEGATIVE (NEGATIVE); GLUCOSE, URINE NEGATIVE (NEGATIVE); KETONES,URINE NEGATIVE (NEGATIVE); LEUKOCYTE ESTERASE,URINE NEGATIVE (NEGATIVE); NITRITE,URINE NEGATIVE (NEGATIVE); PROTEIN,URINE 30 mg/dL (NEGATIVE); UROBILINOGEN,URINE NEGATIVE mg/dL (<2.0)
[2016-04-01 07:23] LABS: ANION GAP 8 (5-19); BLOOD UREA NITROGEN 33 mg/dL (7-20); CALCIUM 9.2 mg/dL (8.4-10.2); CARBON DIOXIDE 30 mmol/L (22-30); CHLORIDE 103 mmol/L (98-107); GLUCOSE 102 mg/dL (75-110); SODIUM 141.2 mmol/L (137-145)
[2016-04-01 07:43] LABS: HEMATOCRIT 33.7 % (37.9-51.0); HEMOGLOBIN 11.6 g/dL (13.5-17.0); HGB HCT DIFFERENCE 1.1; MEAN CORPUSCULAR HEMOGLOBIN 31.1 pg (27.0-33.4); MEAN CORPUSCULAR HGB CONC 34.3 g/dL (32.0-36.0); MEAN CORPUSCULAR VOLUME 91 fl (80-97); RED BLOOD COUNT 3.72 10^6/uL (4.35-5.55); RED CELL DISTRIBUTION WIDTH 13.2 % (11.5-14.0); WHITE BLOOD COUNT 10.2 10^3/uL (4.0-10.5)
[2016-04-01 07:47] LABS: BAND NEUTROPHILS % (MANUAL) 1 % (3-5); BASOPHILS % (MANUAL) 0 % (0-2); EOSINOPHILS % (MANUAL) 0 % (0-6); HYPOCHROMASIA SLIGHT; LYMPHOCYTES % (MANUAL) 9 % (13-45); POLYCHROMASIA SLIGHT; TOTAL CELLS COUNTED 100; TOXIC GRANULATION 1+; TOXIC VACUOLATION PRESENT
--- NOTE | 2016-04-01 08:05 | EKG REPORT ---
SEVERITY:- ABNORMAL ECG - SINUS RHYTHM NONSPECIFIC INTRAVENTRICULAR CONDUCTION DELAY BORDERLINE ST DEPRESSION, ANTEROLATERAL LEADS : Confirmed by: Adam Gilbert MD 01-Apr-2016 08:04:44
[2016-04-01] MEDS: LEVALBUTEROL HCL NEB 0.63 MG/3 ML AMPUL NEB SCH ×3 (08:34→20:33)
[2016-04-01] MEDS: NICOTINE 21 MG/24 HR PATCH.TD24 TD SCH (10:30)
[2016-04-01] MEDS: ENOXAPARIN SODIUM INJ 100 MG/1 ML DISP.SYRIN SUBCUT SCH ×2 (10:30→21:21)
[2016-04-01] MEDS: FUROSEMIDE INJ/PF 20 MG/2 ML SDV IV SCH ×2 (10:30→21:21)
[2016-04-01] MEDS: FINASTERIDE 5 MG TABLET PO SCH (10:31)
[2016-04-01] MEDS: CETIRIZINE 10 MG TABLET PO SCH (10:31)
[2016-04-01] MEDS: LISINOPRIL 5 MG TABLET PO SCH ×2 (10:31→22:33)
[2016-04-01] MEDS: DOCUSATE SODIUM 100 MG CAPSULE PO SCH ×2 (10:31→17:56)
[2016-04-01] MEDS: ATORVASTATIN CALCIUM 40 MG TABLET PO SCH (10:31)
[2016-04-01] MEDS: DOXYCYCLINE HYCLATE 100 MG TABLET PO SCH ×2 (10:31→22:33)
[2016-04-01] MEDS: METOPROLOL SUCCINATE 50 MG TAB.SR.24H PO SCH (10:31)
[2016-04-01] MEDS: ASPIRIN 81 MG TABLET, CHEWABLE PO SCH (10:31)
[2016-04-01] MEDS: PHENOBARBITAL 64.8 MG TABLET PO SCH (10:32)
[2016-04-01] MEDS: TIOTROPIUM BROMIDE DPI 5 CAP/KIT (18 MCG/CAP) IH SCH (10:32)
[2016-04-01] MEDS: FLUTICASONE NASAL SPRAY 50 MCG/SPRY 120 SPRAY/16 GM NASL SCH (15:17)
[2016-04-01] MEDS ORDERED: TUBERCULIN,PURIF.PROT.DERIV. 5 TU/0.1 ML TEST 1 ML VIAL ID ONE ×2 (17:46→19:00)
--- NOTE | 2016-04-01 17:53 | PDOC PROGRESS REPORT ---
Subjective Progress Note for:: 04/01/16 Subjective:: Patient has continued shortness of breath. He denies chest pain. Patient denies fever, chills, headache, new focal weakness, abdominal pain, nausea, vomiting, diarrhea, constipation. Physical Exam Vital Signs: Temp Pulse Resp BP Pulse Ox 97.4 F 44 L 19 115/99 H 92 04/01/16 15:22 04/01/16 15:22 04/01/16 15:22 04/01/16 15:22 04/01/16 15:22 Intake & Output 03/31/16 04/01/16 04/02/16 06:59 06:59 06:59 Intake Total 1383 428 591 Output Total 5900 3400 500 Balance -9400 -6101 91 Weight 94.1 kg 94.1 kg GENERAL: No acute distress, frail, elderly HEENT: Conjunctiva clear, nonicteric, moist mucous membranes, no JVD, midline trachea RESPIRATORY: Tachypnea, bilateral rhonchi/wheezes, decreased air excursion CARDIAC: Regular rate and rhythm, no murmurs/gallops/rubs ABDOMEN: Soft, nondistended, nontender, positive bowel sounds, no rebound, no guarding EXTREMETIES: No edema, cyanosis, clubbing NEUROLOGIC: Alert, oriented to person only, CN's grossly intact, no focal deficits SKIN: No rash, wounds PSYCH: Normal mood, normal affect Results Laboratory Results: 04/01/16 06:41 04/01/16 06:41 04/01/16 04/01/16 04/01/16 02:40 06:41 06:41 WBC 10.2 RBC 3.72 L Hgb 11.6 L Hct 33.7 L MCV 91 MCH 31.1 MCHC 34.3 RDW 13.2 Plt Count 215 Seg Neutrophils % Not Reportable Lymphocytes % Not Reportable Monocytes % Not Reportable Eosinophils % Not Reportable Basophils % Not Reportable Absolute Neutrophils Not Reportable Absolute Lymphocytes Not Reportable Absolute Monocytes Not Reportable Absolute Eosinophils Not Reportable Absolute Basophils Not Reportable Sodium 141.2 Potassium 4.0 Chloride 103 Carbon Dioxide 30 Anion Gap 8 BUN 33 H Creatinine 1.10 Est GFR ( Amer) > 60 Est GFR (Non-Af Amer) > 60 Glucose 102 Calcium 9.2 Urine Color STRAW Urine Appearance CLEAR Urine pH 5.0 Ur Specific [place] 1.010 Urine Protein 30 H Urine Glucose (UA) NEGATIVE Urine Ketones NEGATIVE Urine Blood MODERATE H Urine Nitrite NEGATIVE Ur Leukocyte Esterase NEGATIVE Urine WBC (Auto) 2 Urine RBC (Auto) 7 03/29/16 03/30/16 04/01/16 06:40 09:35 06:41 Creatine Kinase 644 H NT-Pro-B Natriuret Pep 3720 H 7690 H Impressions: Cervical Spine CT 03/27/16 22:16 IMPRESSION: CHRONIC DEGENERATIVE CHANGES. NO ACUTE FINDINGS. Head CT 03/27/16 22:16 IMPRESSION: NO ACUTE INTRACRANIAL PROCESS. NO SIGNIFICANT CHANGE FROM PRIOR STUDY. Hip X-Ray 03/27/16 22:25 IMPRESSION: NO ACUTE OSSEOUS ABNORMALITY. Chest CT 03/28/16 01:46 IMPRESSION: No masses. Extensive coronary artery calcification. Chest X-Ray 04/01/16 06:00 IMPRESSION: Stable cardiomegaly. No acute findings Assessment & Plan - Diagnosis (1) Acute hypoxemic respiratory failure Is this a current diagnosis for this admission?: YesPlan: Continue oxygen supplementation. (2) Atrial fibrillation with RVR Is this a current diagnosis for this admission?: YesPlan: Patient is in sinus rhythm status post cardioversion by Dr. Leung on 2015. Continue Toprol-XL 50 mg by mouth daily. Continue Lovenox 90 mg subcutaneous every 12 hours. Cardiology following. (3) Heart failure, systolic, with acute decompensation Is this a current diagnosis for this admission?: YesPlan: Continue Lasix 20 mg IV every 12 hours scheduled. Continue Toprol-XL. Cardiology following. Lisinopril 5 mg daily started by cardiology. (4) COPD exacerbation Is this a current diagnosis for this admission?: YesPlan: Continue IV Solu-Medrol. Continue Xopenex secondary to tachycardia. Continue Spiriva. Discontinue smoking. (5) Acute renal failure Qualifiers: Acute renal failure type: unspecified Qualified Code(s): N17.9 - Acute kidney failure, unspecified Is this a current diagnosis for this admission?: YesPlan: Resolved. (6) Rhabdomyolysis Qualifiers: Rhabdomyolysis type: traumatic Encounter type: initial encounter Qualified Code(s): T79.6XXA - Traumatic ischemia of muscle, initial encounter Is this a current diagnosis for this admission?: YesPlan: Resolved. (7) Sepsis Qualifiers: Sepsis type: sepsis due to unspecified organism Qualified Code(s): A41.9 - Sepsis, unspecified organism Is this a current diagnosis for this admission?: Yes (8) UTI (urinary tract infection) Qualifiers: Urinary tract infection type: site unspecified Hematuria presence: with hematuria Qualified Code(s): N39.0 - Urinary tract infection, site not specified Is this a current diagnosis for this admission?: YesPlan: Continue doxycycline for Citrobacter on urine culture. (9) Tobacco abuse Is this a current diagnosis for this admission?: Yes (10) Seizure disorder Is this a current diagnosis for this admission?: YesPlan: Continue phenobarbital. (11) Do not resuscitate Is this a current diagnosis for this admission?: Yes (12) Ambulatory dysfunction Is this a current diagnosis for this admission?: YesPlan: Continue physical therapy. Patient may require rehabilitation prior to being placed at assisted living facility. His family states that he is no longer safe living at home. PPD placed for potential SNF/[facility]. - Time Time Spent with patient: 35 or more minutes
[2016-04-01] MEDS: TAMSULOSIN HCL 0.4 MG CAP.SR.24H PO SCH (17:56)
[2016-04-02] MEDS: LEVALBUTEROL HCL NEB 0.63 MG/3 ML AMPUL NEB PRN (00:35)
[2016-04-02] MEDS: METHYLPREDNISOLONE INJ 40 MG/1 ML SDV IV SCH ×3 (01:50→18:32)
[2016-04-02 06:05] LABS: HEMATOCRIT 35.8 % (37.9-51.0); HGB HCT DIFFERENCE 0.2; MEAN CORPUSCULAR HEMOGLOBIN 30.8 pg (27.0-33.4); MEAN CORPUSCULAR HGB CONC 33.6 g/dL (32.0-36.0); MEAN CORPUSCULAR VOLUME 92 fl (80-97); RED BLOOD COUNT 3.91 10^6/uL (4.35-5.55); RED CELL DISTRIBUTION WIDTH 13.1 % (11.5-14.0); WHITE BLOOD COUNT 11.2 10^3/uL (4.0-10.5)
[2016-04-02 06:41] LABS: ANION GAP 10 (5-19); BLOOD UREA NITROGEN 38 mg/dL (7-20); CALCIUM 9.1 mg/dL (8.4-10.2); CARBON DIOXIDE 30 mmol/L (22-30); CHLORIDE 100 mmol/L (98-107); CREATININE RESULT 1.04 mg/dL (0.52-1.25); GLUCOSE 107 mg/dL (75-110); POTASSIUM 4.5 mmol/L (3.6-5.0); SODIUM 139.7 mmol/L (137-145)
[2016-04-02 06:48] LABS: APPEARANCE,URINE SLIGHTLY-CLOUDY; BILIRUBIN,URINE NEGATIVE (NEGATIVE); GLUCOSE, URINE NEGATIVE (NEGATIVE); KETONES,URINE NEGATIVE (NEGATIVE); LEUKOCYTE ESTERASE,URINE NEGATIVE (NEGATIVE); NITRITE,URINE NEGATIVE (NEGATIVE); PROTEIN,URINE 30 mg/dL (NEGATIVE); URINE SPECIFIC GRAVITY 1.019; UROBILINOGEN,URINE NEGATIVE mg/dL (<2.0)
[2016-04-02] MEDS: LEVALBUTEROL HCL NEB 0.63 MG/3 ML AMPUL NEB SCH ×3 (08:32→19:42)
[2016-04-02] MEDS: PHENOBARBITAL 64.8 MG TABLET PO SCH (11:31)
[2016-04-02] MEDS: FLUTICASONE NASAL SPRAY 50 MCG/SPRY 120 SPRAY/16 GM NASL SCH (11:31)
[2016-04-02] MEDS: DOCUSATE SODIUM 100 MG CAPSULE PO SCH ×2 (11:31→18:32)
[2016-04-02] MEDS: CETIRIZINE 10 MG TABLET PO SCH (11:31)
[2016-04-02] MEDS: TIOTROPIUM BROMIDE DPI 5 CAP/KIT (18 MCG/CAP) IH SCH (11:31)
[2016-04-02] MEDS: ATORVASTATIN CALCIUM 40 MG TABLET PO SCH (11:32)
[2016-04-02] MEDS: ENOXAPARIN SODIUM INJ 100 MG/1 ML DISP.SYRIN SUBCUT SCH (11:32)
[2016-04-02] MEDS: FINASTERIDE 5 MG TABLET PO SCH (11:32)
[2016-04-02] MEDS: LISINOPRIL 5 MG TABLET PO SCH ×2 (11:32→22:04)
[2016-04-02] MEDS: METOPROLOL SUCCINATE 50 MG TAB.SR.24H PO SCH (11:32)
[2016-04-02] MEDS: DOXYCYCLINE HYCLATE 100 MG TABLET PO SCH ×2 (11:32→22:05)
[2016-04-02] MEDS: NICOTINE 21 MG/24 HR PATCH.TD24 TD SCH (11:33)
[2016-04-02] MEDS: FUROSEMIDE INJ/PF 20 MG/2 ML SDV IV SCH ×2 (11:33→22:04)
[2016-04-02] MEDS: ASPIRIN 81 MG TABLET, CHEWABLE PO SCH (11:33)
--- NOTE | 2016-04-02 14:42 | PDOC PROGRESS REPORT ---
Subjective Progress Note for:: 04/02/16 Subjective:: Patient is slightly agitated and making occasional bizarre statements during my visit today. Nursing reports the patient has been having some coughing spells with swallowing. Patient denies fever, chills, headache, new focal weakness, chest pain, abdominal pain, nausea, vomiting, diarrhea, constipation. Physical Exam Vital Signs: Temp Pulse Resp BP Pulse Ox 97.8 F 63 18 122/54 L 92 04/02/16 11:25 04/02/16 13:46 04/02/16 13:46 04/02/16 11:25 04/02/16 13:46 Intake & Output 04/01/16 04/02/16 04/03/16 06:59 06:59 06:59 Intake Total 428 972 400 Output Total 3400 2100 300 Balance -8542 -1128 100 Weight 94.1 kg 89.6 kg GENERAL: No acute distress, frail, elderly HEENT: Conjunctiva clear, nonicteric, moist mucous membranes, no JVD, midline trachea RESPIRATORY: Tachypnea, bilateral rhonchi/wheezes, decreased air excursion CARDIAC: Regular rate and rhythm, no murmurs/gallops/rubs ABDOMEN: Soft, nondistended, nontender, positive bowel sounds, no rebound, no guarding EXTREMETIES: No edema, cyanosis, clubbing NEUROLOGIC: Alert, oriented to person only, CN's grossly intact, no focal deficits SKIN: No rash, wounds PSYCH: Normal mood, normal affect Results Laboratory Results: 04/02/16 05:32 04/02/16 05:32 04/02/16 04/02/16 04/02/16 05:32 05:32 06:13 WBC 11.2 H RBC 3.91 L Hgb 12.0 L Hct 35.8 L MCV 92 MCH 30.8 MCHC 33.6 RDW 13.1 Plt Count 241 Sodium 139.7 Potassium 4.5 Chloride 100 Carbon Dioxide 30 Anion Gap 10 BUN 38 H Creatinine 1.04 Est GFR ( Amer) > 60 Est GFR (Non-Af Amer) > 60 Glucose 107 Calcium 9.1 Urine Color YELLOW Urine Appearance SLIGHTLY-CLOUDY Urine pH 6.0 Ur Specific [place] 1.019 Urine Protein 30 H Urine Glucose (UA) NEGATIVE Urine Ketones NEGATIVE Urine Blood MODERATE H Urine Nitrite NEGATIVE Ur Leukocyte Esterase NEGATIVE Urine WBC (Auto) 3 Urine RBC (Auto) 50 03/28/16 12:00 Blood Blood Culture - Final NO GROWTH IN 5 DAYS 03/28/16 11:52 Blood Blood Culture - Final NO GROWTH IN 5 DAYS 03/29/16 03/30/16 04/01/16 06:40 09:35 06:41 Creatine Kinase 644 H NT-Pro-B Natriuret Pep 3720 H 7690 H Impressions: Cervical Spine CT 03/27/16 22:16 IMPRESSION: CHRONIC DEGENERATIVE CHANGES. NO ACUTE FINDINGS. Head CT 03/27/16 22:16 IMPRESSION: NO ACUTE INTRACRANIAL PROCESS. NO SIGNIFICANT CHANGE FROM PRIOR STUDY. Hip X-Ray 03/27/16 22:25 IMPRESSION: NO ACUTE OSSEOUS ABNORMALITY. Chest CT 03/28/16 01:46 IMPRESSION: No masses. Extensive coronary artery calcification. Chest X-Ray 04/01/16 06:00 IMPRESSION: Stable cardiomegaly. No acute findings Assessment & Plan - Diagnosis (1) Acute hypoxemic respiratory failure Is this a current diagnosis for this admission?: YesPlan: Continue oxygen supplementation. (2) Atrial fibrillation with RVR Is this a current diagnosis for this admission?: YesPlan: Patient is in sinus rhythm status post cardioversion by Dr. Leung on 2015. Continue Toprol-XL 50 mg by mouth daily. Case discussed with Dr. Leung today. I will discontinue Lovenox secondary to patient's age, encephalopathy/fall risk, comorbid conditions. We will continue aspirin 81 mg daily. Patient will be placed on prophylactic dose of Lovenox DVT prophylaxis. (3) Heart failure, systolic, with acute decompensation Is this a current diagnosis for this admission?: YesPlan: Continue Lasix 20 mg IV every 12 hours scheduled. Continue Toprol-XL. Cardiology following. Lisinopril 5 mg daily started by cardiology. Patient has been maintaining a negative fluid balance over the past 3 days. (4) COPD exacerbation Is this a current diagnosis for this admission?: YesPlan: Continue IV Solu-Medrol. Continue Xopenex secondary to tachycardia. Continue Spiriva. Continue doxycycline. Discontinue smoking. (5) Acute renal failure Qualifiers: Acute renal failure type: unspecified Qualified Code(s): N17.9 - Acute kidney failure, unspecified Is this a current diagnosis for this admission?: YesPlan: Resolved. (6) Rhabdomyolysis Qualifiers: Rhabdomyolysis type: traumatic Encounter type: initial encounter Qualified Code(s): T79.6XXA - Traumatic ischemia of muscle, initial encounter Is this a current diagnosis for this admission?: YesPlan: Resolved. (7) Sepsis Qualifiers: Sepsis type: sepsis due to unspecified organism Qualified Code(s): A41.9 - Sepsis, unspecified organism Is this a current diagnosis for this admission?: YesPlan: Patient is now afebrile and hemodynamically stable. Continue to treat urinary tract infection. (8) UTI (urinary tract infection) Qualifiers: Urinary tract infection type: site unspecified Hematuria presence: with hematuria Qualified Code(s): N39.0 - Urinary tract infection, site not specified Is this a current diagnosis for this admission?: YesPlan: Continue doxycycline for Citrobacter on urine culture. (9) Tobacco abuse Is this a current diagnosis for this admission?: Yes (10) Seizure disorder Is this a current diagnosis for this admission?: YesPlan: Continue phenobarbital. (11) Do not resuscitate Is this a current diagnosis for this admission?: Yes (12) Ambulatory dysfunction Is this a current diagnosis for this admission?: YesPlan: Continue physical therapy. Patient may require rehabilitation prior to being placed at assisted living facility. His family states that he is no longer safe living at home. PPD placed for potential SNF/[facility]. - Time Time Spent with patient: 35 or more minutes
[2016-04-02 15:22] LABS: HEMOGLOBIN 12.4 g/dL (13.5-17.0); HGB HCT DIFFERENCE 0.2; MEAN CORPUSCULAR HEMOGLOBIN 30.8 pg (27.0-33.4); MEAN CORPUSCULAR HGB CONC 33.5 g/dL (32.0-36.0); MEAN CORPUSCULAR VOLUME 92 fl (80-97); RED BLOOD COUNT 4.02 10^6/uL (4.35-5.55); WHITE BLOOD COUNT 14.2 10^3/uL (4.0-10.5)
[2016-04-02 15:41] LABS: CREATININE RESULT 1.17 mg/dL (0.52-1.25)
[2016-04-02 16:31] LABS: PROTHROMBIN TIME 15.4 SEC (11.4-15.4)
[2016-04-02 16:32] LABS: PARTIAL THROMBOPLASTIN TIME 33.8 SEC (23.5-35.8)
[2016-04-02] MEDS: TAMSULOSIN HCL 0.4 MG CAP.SR.24H PO SCH (18:32)
--- NOTE | 2016-04-02 20:13 | PROGRESS NOTE E ---
Progress Note NAME: JESENIA LÓPEZ : 1940 AGE: 75Y DATE: 04/02/2016 ROOM: 331 SUBJECTIVE: Note that the patient continues to wheeze. He denies any chest pain or discomfort. He remains in sinus rhythm. He does have some orthopnea but no PND or leg edema. The patient remains in sinus rhythm with no recurrence of atrial fibrillation. The nurses have noted that at times when he eats, he chokes. There are no TIA or CVA symptoms. OBJECTIVE: VITAL SIGNS: The patient is afebrile with a temperature of 97.8 degrees Fahrenheit orally, pulse is 65 beats per minute, blood pressure is 122/54, respirations of 20 per minute, O2 sats are 98% on 3 L nasal cannula. GENERAL: On examination, the patient is mildly obese. He does not seem to be in any acute distress although he is wheezing and complaining of shortness of breath. HEAD: Normocephalic, atraumatic. HEENT: Eyes: Pupils are equal, round, regular, and reactive to light and accommodation. Extraocular movements are normal. There is no conjunctival pallor. There is no sclerae icterus. ENT is negative. NECK: Supple. There is no JVD. Carotids are equal. There are no bruits. There is no goiter. There is no lymphadenopathy. Trachea is central. LUNGS: Show diminished air entry, prolonged expiration. There is scattered rhonchi and wheezing bilaterally. There are no rales of CHF. There is hyperresonance on percussion. HEART: S1 and S2 are heard. The S1 is of normal intensity. There is no S3 gallop. There is no S4 gallop. There is a systolic murmur in the left sternal border and the apex. There is no rub. ABDOMEN: Soft, obese, nontender. There is no hepatosplenomegaly. Bowel sounds are well heard. EXTREMITIES: Femorals are diminished. There are no femoral bruits. Leg pulses are diminished. There is no pedal edema. There is no DVT or cellulitis. There is no calf tenderness. CENTRAL NERVOUS SYSTEM: The patient is conscious, awake, alert, oriented x3 with no focal deficits. PSYCHIATRIC: The patient's judgment and insight are intact. His affect is normal. DIAGNOSTIC DATA: The patient's 24-hr intake is 972 mL, output is 2100 mL. The patient's white count is 14,200, hemoglobin is 12.4, hematocrit is 37. His platelet count is 265,000. The patient's sodium is 139.7, potassium 4.5, chloride 100, CO2 30, BUN 38, creatinine 1.04, GRF greater than 60, glucose is 107, calcium is 9.1. IMPRESSION: 1. ATRIAL FIBRILLATION WITH RAPID VENTRICULAR RESPONSE, CARDIOVERTED TO SINUS RHYTHM. At present, the patient remains in sinus rhythm. Note that the patient is not a candidate for long-term anticoagulation therapy since the patient has ambulatory dysfunction and the frequent falls. This has been discussed with the patient's daughter and the patient. Hence, we will stop the patient's intramuscular Lovenox and place the patient on DVT prophylaxis of Lovenox at 40 mg subcutaneously daily. 2. RESPIRATORY FAILURE ACUTE ON CHRONIC SECONDARY TO ACUTE EXACERBATION OF CHRONIC OBSTRUCTIVE PULMONARY DISEASE AND CONGESTIVE HEART FAILURE. At present congestive heart failure is compensated. The patient has asthmatic bronchitis and acute exacerbation of COPD which continues. The patient is on respiratory treatments and he is also on steroids and antibiotics. 3. ACUTE ON CHRONIC SYSTOLIC HEART FAILURE SECONDARY TO ATRIAL FIBRILLATION WITH RAPID VENTRICULAR RESPONSE IN A PATIENT WITH CARDIOMYOPATHY WITH A SEVERELY REDUCED LEFT VENTRICULAR EJECTION FRACTION. At present the patient is in sinus rhythm and the patient's heart failure is compensated. 4. HYPERTENSION. 5. CARDIOMYOPATHY WITH SEVERELY REDUCED LEFT VENTRICULAR EJECTION FRACTION OF 25% TO 30%. 6. CORONARY ARTERY DISEASE, HISTORY OF OLD MYOCARDIAL INFARCTION. No recurrent anginal symptoms. 7. HISTORY OF SEIZURE DISORDER. None this admission. 8. HISTORY OF CVA, FULLY RECOVERED. 9. HISTORY OF ENLARGED PROSTATE. 10. HYPERLIPIDEMIA. 11. URINARY TRACT INFECTION. 12. ACUTE RENAL FAILURE. At present GFR much improved. This is most likely secondary to rhabdomyolysis which is also resolved. RECOMMENDATIONS: As mentioned earlier, the Cardizem has been discontinued. The patient is on metoprolol XL 50 p.o. daily. He is also tolerating the DIANE inhibitor at 5 mg p.o. q.12 h. Continue Lasix. Continue steroids. Continue antibiotics. Continue anti-COPD medication. Will place the patient on aspirin 81 mg p.o. daily. The patient is not a candidate for long-term chronic anticoagulation due to frequent falls. Also would recommend that the patient have a swallow study since the patient at times is seen to be coughing when he eats, to rule out the possibility of aspiration. TIME SPENT: Note that 35 minutes spent on this patient with more than 50% of the time spent in direct patient care and also discussions of the treatment plan with the hospitalist, review of patient's medications and adjustment of patient's medications. We will increase the patient's lisinopril to 10 mg p.o. q.12 h. Will continue the patient's Lasix. Will follow with you. Thanking you. DICTATING PHYSICIAN: AYAKA THOMAS M.D. [id number] PHY#: [id number] ID: [id number] JOB#: [id number] ACCT: [id number] cc: >
[2016-04-03] MEDS: METHYLPREDNISOLONE INJ 40 MG/1 ML SDV IV SCH ×3 (01:57→17:31)
[2016-04-03 06:11] LABS: HEMATOCRIT 38.4 % (37.9-51.0); HEMOGLOBIN 12.8 g/dL (13.5-17.0); MEAN CORPUSCULAR HEMOGLOBIN 30.4 pg (27.0-33.4); MEAN CORPUSCULAR HGB CONC 33.2 g/dL (32.0-36.0); MEAN CORPUSCULAR VOLUME 92 fl (80-97); RED BLOOD COUNT 4.19 10^6/uL (4.35-5.55); RED CELL DISTRIBUTION WIDTH 13.6 % (11.5-14.0); WHITE BLOOD COUNT 15.9 10^3/uL (4.0-10.5)
[2016-04-03 06:35] LABS: ANION GAP 10 (5-19); BLOOD UREA NITROGEN 56 mg/dL (7-20); CALCIUM 9.3 mg/dL (8.4-10.2); CARBON DIOXIDE 31 mmol/L (22-30); CHLORIDE 96 mmol/L (98-107); CREATININE RESULT 1.19 mg/dL (0.52-1.25); GLUCOSE 102 mg/dL (75-110); POTASSIUM 5.1 mmol/L (3.6-5.0); SODIUM 137.2 mmol/L (137-145)
[2016-04-03 06:59] LABS: BASOPHILS % (MANUAL) 0 % (0-2); EOSINOPHILS % (MANUAL) 0 % (0-6); LYMPHOCYTES % (MANUAL) 9 % (13-45); PLATELET CLUMPS PRESENT; RBC MORPHOLOGY COMMENT NORMO-CYTIC/CHROMIC; TOTAL CELLS COUNTED 100; TOXIC GRANULATION SLIGHT; TOXIC VACUOLATION PRESENT
[2016-04-03] MEDS: LEVALBUTEROL HCL NEB 0.63 MG/3 ML AMPUL NEB SCH ×3 (08:19→20:46)
[2016-04-03] MEDS: ENOXAPARIN SODIUM INJ 40 MG/0.4 ML DISP.SYRIN SUBCUT SCH (09:53)
[2016-04-03] MEDS: FUROSEMIDE INJ/PF 20 MG/2 ML SDV IV SCH (09:55)
[2016-04-03] MEDS: FINASTERIDE 5 MG TABLET PO SCH (09:56)
[2016-04-03] MEDS: PHENOBARBITAL 64.8 MG TABLET PO SCH (09:56)
[2016-04-03] MEDS: METOPROLOL SUCCINATE 50 MG TAB.SR.24H PO SCH (09:56)
[2016-04-03] MEDS: ATORVASTATIN CALCIUM 40 MG TABLET PO SCH (09:57)
[2016-04-03] MEDS: NICOTINE 21 MG/24 HR PATCH.TD24 TD SCH (09:57)
[2016-04-03] MEDS: DOCUSATE SODIUM 100 MG CAPSULE PO SCH ×2 (09:57→17:31)
[2016-04-03] MEDS: CETIRIZINE 10 MG TABLET PO SCH (09:57)
[2016-04-03] MEDS: ASPIRIN 81 MG TABLET, CHEWABLE PO SCH (09:57)
[2016-04-03] MEDS: DOXYCYCLINE HYCLATE 100 MG TABLET PO SCH ×2 (09:57→22:26)
[2016-04-03] MEDS: FLUTICASONE NASAL SPRAY 50 MCG/SPRY 120 SPRAY/16 GM NASL SCH (10:11)
[2016-04-03] MEDS: TIOTROPIUM BROMIDE DPI 5 CAP/KIT (18 MCG/CAP) IH SCH (10:54)
--- NOTE | 2016-04-03 16:12 | PDOC PROGRESS REPORT ---
Subjective Progress Note for:: 04/03/16 Subjective:: Patient continues to be confused. He denies shortness of breath. Patient denies fever, chills, headache, new focal weakness, chest pain, abdominal pain , nausea, vomiting, diarrhea, constipation. Physical Exam Vital Signs: Temp Pulse Resp BP Pulse Ox 97.9 F 80 20 108/54 L 93 04/03/16 15:27 04/03/16 15:27 04/03/16 15:27 04/03/16 15:27 04/03/16 15:27 Intake & Output 04/02/16 04/03/16 04/04/16 06:59 06:59 06:59 Intake Total 780 559 8188 Output Total 2100 2700 900 Balance -1128 -8845 200 Weight 89.6 kg 90 kg GENERAL: No acute distress, frail, elderly HEENT: Conjunctiva clear, nonicteric, moist mucous membranes, no JVD, midline trachea RESPIRATORY: Improved bilateral rhonchi/wheezes, good air excursion CARDIAC: Regular rate and rhythm, no murmurs/gallops/rubs ABDOMEN: Soft, nondistended, nontender, positive bowel sounds, no rebound, no guarding EXTREMETIES: No edema, cyanosis, clubbing NEUROLOGIC: Alert, oriented to person only, CN's grossly intact, no focal deficits SKIN: No rash, wounds PSYCH: Normal mood, normal affect Results Laboratory Results: 04/03/16 05:02 04/03/16 05:02 04/03/16 04/03/16 05:02 05:02 WBC 15.9 H RBC 4.19 L Hgb 12.8 L Hct 38.4 MCV 92 MCH 30.4 MCHC 33.2 RDW 13.6 Plt Count 285 Seg Neutrophils % Not Reportable Lymphocytes % Not Reportable Monocytes % Not Reportable Eosinophils % Not Reportable Basophils % Not Reportable Absolute Neutrophils Not Reportable Absolute Lymphocytes Not Reportable Absolute Monocytes Not Reportable Absolute Eosinophils Not Reportable Absolute Basophils Not Reportable Sodium 137.2 Potassium 5.1 H Chloride 96 L Carbon Dioxide 31 H Anion Gap 10 BUN 56 H Creatinine 1.19 Est GFR ( Amer) > 60 Est GFR (Non-Af Amer) 59 L Glucose 102 Calcium 9.3 03/28/16 12:00 Blood Blood Culture - Final NO GROWTH IN 5 DAYS 03/28/16 11:52 Blood Blood Culture - Final NO GROWTH IN 5 DAYS 03/29/16 03/30/16 04/01/16 06:40 09:35 06:41 Creatine Kinase 644 H NT-Pro-B Natriuret Pep 3720 H 7690 H Impressions: Cervical Spine CT 03/27/16 22:16 IMPRESSION: CHRONIC DEGENERATIVE CHANGES. NO ACUTE FINDINGS. Head CT 03/27/16 22:16 IMPRESSION: NO ACUTE INTRACRANIAL PROCESS. NO SIGNIFICANT CHANGE FROM PRIOR STUDY. Hip X-Ray 03/27/16 22:25 IMPRESSION: NO ACUTE OSSEOUS ABNORMALITY. Chest CT 03/28/16 01:46 IMPRESSION: No masses. Extensive coronary artery calcification. Chest X-Ray 04/03/16 06:00 IMPRESSION: NO ACUTE CARDIOPULMONARY PROCESS. NO SIGNIFICANT CHANGE FROM PRIOR STUDY. Assessment & Plan - Diagnosis (1) Acute hypoxemic respiratory failure Is this a current diagnosis for this admission?: YesPlan: Continue oxygen supplementation. (2) Atrial fibrillation with RVR Is this a current diagnosis for this admission?: YesPlan: Patient is in sinus rhythm status post cardioversion by Dr. Leung on 2015. Continue Toprol-XL 50 mg by mouth daily. Cardiology following. Patient is not a candidate for full anticoagulation secondary to age, encephalopathy/ fall risk, comorbid conditions. We will continue aspirin 81 mg daily. (3) Heart failure, systolic, with acute decompensation Is this a current diagnosis for this admission?: YesPlan: Echocardiogram 2013 indicates EF 40-45% range. Cardiology notes indicate the patient has EF of 25-30%. Chest x-ray shows no further pulmonary edema. Discontinue IV Lasix. Start Lasix 40 mg by mouth daily. Continue Toprol-XL. Cardiology following. Lisinopril increased to 10 mg twice daily by cardiology. Patient has achieved -10 L fluid balance over past 4 days. His weight has gone down markedly 7 kg over the same period of time. (4) COPD exacerbation Is this a current diagnosis for this admission?: YesPlan: Slowly improving. Continue IV Solu-Medrol. Continue Xopenex secondary to tachycardia. Continue Spiriva. Continue doxycycline. Discontinue smoking. (5) Acute renal failure Qualifiers: Acute renal failure type: unspecified Qualified Code(s): N17.9 - Acute kidney failure, unspecified Is this a current diagnosis for this admission?: YesPlan: Resolved. (6) Rhabdomyolysis Qualifiers: Rhabdomyolysis type: traumatic Encounter type: initial encounter Qualified Code(s): T79.6XXA - Traumatic ischemia of muscle, initial encounter Is this a current diagnosis for this admission?: YesPlan: Resolved. (7) Sepsis Qualifiers: Sepsis type: sepsis due to unspecified organism Qualified Code(s): A41.9 - Sepsis, unspecified organism Is this a current diagnosis for this admission?: YesPlan: Patient is now afebrile and hemodynamically stable. Continue to treat urinary tract infection. (8) UTI (urinary tract infection) Qualifiers: Urinary tract infection type: site unspecified Hematuria presence: with hematuria Qualified Code(s): N39.0 - Urinary tract infection, site not specified Is this a current diagnosis for this admission?: YesPlan: Continue doxycycline until 04/10/2016 for Citrobacter on urine culture. (9) Tobacco abuse Is this a current diagnosis for this admission?: Yes (10) Seizure disorder Is this a current diagnosis for this admission?: YesPlan: Continue phenobarbital. (11) Ambulatory dysfunction Is this a current diagnosis for this admission?: YesPlan: Continue physical therapy. Patient may require rehabilitation prior to being placed at assisted living facility. His family states that he is no longer safe living at home. PPD placed for potential SNF/[facility]. (12) Do not resuscitate Is this a current diagnosis for this admission?: Yes - Time Time Spent with patient: 35 or more minutes
[2016-04-03] MEDS: TAMSULOSIN HCL 0.4 MG CAP.SR.24H PO SCH (17:31)
--- NOTE | 2016-04-03 20:53 | PROGRESS NOTE E ---
Progress Note NAME: JESENIA LÓPEZ : 1940 AGE: 75Y DATE: 04/03/2016 ROOM: 331 SUBJECTIVE: Note that the patient continues to wheeze and appears to be slightly short of breath. He denies any chest pain or discomfort. He remains in sinus rhythm. He does have some orthopnea but no PND or leg edema. The patient remains in sinus rhythm with no recurrence of atrial fibrillation. As per the daughter, the patient at times even when he is not eating chokes. He has a swallow study which did not show any major swallowing problems. OBJECTIVE: VITAL SIGNS: He is afebrile with a temperature of 97.6 degrees Fahrenheit, pulse is 70 beats per minute, blood pressure is 114/51, respirations of 18 per minute, O2 sats are 98% on 3 L nasal cannula. GENERAL: On examination, the patient is mildly obese. HEAD: Normocephalic, atraumatic. HEENT: Eyes: Pupils are equal, round, regular, and reactive to light and accommodation. Extraocular movements are normal. There is no conjunctival pallor. There is no sclerae icterus. ENT is negative. NECK: Supple. There is no JVD. Carotids are equal. There are no bruits. There is no goiter. There is no lymphadenopathy. Trachea is central. LUNGS: Show diminished air entry, prolonged expiration. There is scattered rhonchi and wheezing bilaterally. The wheezing is much less than yesterday. There are no rales of CHF. There is hyperresonance on percussion. HEART: S1 and S2 are heard. The S1 is of normal intensity. There is no S3 gallop. There is no S4 gallop. There is a systolic murmur in the left sternal border and the apex. There is no rub. ABDOMEN: Soft, obese, nontender. There is no hepatosplenomegaly. Bowel sounds are well heard. EXTREMITIES: Femorals are diminished. There are no femoral bruits. Leg pulses are diminished. There is no pedal edema. There is no DVT or cellulitis. There is no calf tenderness. CENTRAL NERVOUS SYSTEM: The patient is conscious, awake, alert, oriented x3 with no focal deficits. PSYCHIATRIC: The patient's judgment and insight are intact. His affect is normal. DIAGNOSTIC DATA: The patient's 24-hour intake is 961 mL, output is 2700 mL. The patient's chest x-ray showed cardiomegaly without any infiltrates or CHF. The patient's white count is 15,900, hemoglobin is 12.8, hematocrit is 38.4 and the platelet count is 285,000. The patient's sodium is 137.2, potassium 5.1, chloride 96, CO2 is 31. The patient's BUN is 36, creatinine 1.19, GRF is mildly reduced at 59. His glucose is 102, calcium is 9.3. IMPRESSION: 1. ATRIAL FIBRILLATION WITH RAPID VENTRICULAR RESPONSE, CARDIOVERTED TO SINUS RHYTHM. The patient remains in sinus rhythm. As mentioned earlier because of frequent falls, the patient is not a candidate for long-term anticoagulation. Will discontinue the Lovenox at 1 mg/kg subcutaneously q.[address] the patient on DVT prophylaxis at 40 mg subcutaneously daily. 2. RESPIRATORY FAILURE ACUTE ON CHRONIC SECONDARY TO ACUTE EXACERBATION OF CHRONIC OBSTRUCTIVE PULMONARY DISEASE AND CONGESTIVE HEART FAILURE. At present congestive heart failure is compensated. The patient has asthmatic bronchitis and acute exacerbation of COPD which continues. The patient is slightly better. Continue respiratory treatments and steroids and antibiotics. 3. ACUTE ON CHRONIC SYSTOLIC HEART FAILURE SECONDARY TO ATRIAL FIBRILLATION WITH RAPID VENTRICULAR RESPONSE IN A PATIENT WITH CARDIOMYOPATHY WITH A SEVERELY REDUCED LEFT VENTRICULAR EJECTION FRACTION. At present the patient is in sinus rhythm and the patient's heart failure is compensated. 4. HYPERTENSION. 5. CARDIOMYOPATHY WITH SEVERELY REDUCED LEFT VENTRICULAR EJECTION FRACTION. 6. CORONARY ARTERY DISEASE, HISTORY OF OLD MYOCARDIAL INFARCTION. No recurrent anginal symptoms. 7. HISTORY OF SEIZURE DISORDER. None this admission. 8. HISTORY OF CVA, FULLY RECOVERED. 9. HISTORY OF ENLARGED PROSTATE. No symptoms. 10. HYPERLIPIDEMIA. 11. URINARY TRACT INFECTION. 12. ACUTE RENAL FAILURE. At present GFR which has been normal is now again the BUN is rising. This may be due to *------*. RECOMMENDATIONS: I agree with stopping the patient's IV Lasix and putting the patient on Lasix 40 mg p.o. daily. Note that the patient's potassium is 5.1 but would watch this since the patient is on DIANE inhibitor. Continue beta renu and DIANE inhibitor and continue aspirin. TIME SPENT: Note that 35 minutes spent on this patient including review of the patient's medication and discussion with the patient, the patient's daughter and also with hospitalist taking care of the patient. Will follow with you. Thanking you. DICTATING PHYSICIAN: AYAKA THOMAS M.D. [id number] PHY#: [id number] ID: [id number] JOB#: [id number] ACCT: [id number] cc: >
[2016-04-03] MEDS ORDERED: LISINOPRIL 5 MG TABLET PO SCH (22:00)
[2016-04-04] MEDS: METHYLPREDNISOLONE INJ 40 MG/1 ML SDV IV SCH (02:16)
[2016-04-04 06:30] LABS: HEMATOCRIT 37.4 % (37.9-51.0); HEMOGLOBIN 12.4 g/dL (13.5-17.0); HGB HCT DIFFERENCE -0.2; MEAN CORPUSCULAR HEMOGLOBIN 30.3 pg (27.0-33.4); MEAN CORPUSCULAR HGB CONC 33.2 g/dL (32.0-36.0); MEAN CORPUSCULAR VOLUME 91 fl (80-97); RED CELL DISTRIBUTION WIDTH 13.4 % (11.5-14.0); WHITE BLOOD COUNT 15.8 10^3/uL (4.0-10.5)
[2016-04-04 06:45] LABS: ANION GAP 9 (5-19); BLOOD UREA NITROGEN 59 mg/dL (7-20); CALCIUM 9.2 mg/dL (8.4-10.2); CARBON DIOXIDE 32 mmol/L (22-30); CHLORIDE 97 mmol/L (98-107); CREATININE RESULT 1.14 mg/dL (0.52-1.25); GLUCOSE 82 mg/dL (75-110); POTASSIUM 4.8 mmol/L (3.6-5.0)
[2016-04-04 06:52] LABS: BAND NEUTROPHILS % (MANUAL) 1 % (3-5); BASOPHILS % (MANUAL) 0 % (0-2); EOSINOPHILS % (MANUAL) 0 % (0-6); LYMPHOCYTES % (MANUAL) 21 % (13-45); TOTAL CELLS COUNTED 100
[2016-04-04 06:54] LABS: TOXIC GRANULATION SLIGHT; TOXIC VACUOLATION PRESENT
[2016-04-04] MEDS: LEVALBUTEROL HCL NEB 0.63 MG/3 ML AMPUL NEB SCH ×3 (08:05→21:51)
[2016-04-04] MEDS ORDERED: LISINOPRIL 5 MG TABLET PO SCH ×2 (10:00)
[2016-04-04] MEDS ORDERED: PREDNISONE 20 MG TABLET PO SCH (10:15)
[2016-04-04] MEDS ORDERED: PREDNISONE 20 MG TABLET PO ONE (11:00)
[2016-04-04] MEDS: PHENOBARBITAL 64.8 MG TABLET PO SCH (11:13)
[2016-04-04] MEDS: METOPROLOL SUCCINATE 50 MG TAB.SR.24H PO SCH (11:14)
[2016-04-04] MEDS: ASPIRIN 81 MG TABLET, CHEWABLE PO SCH (11:14)
[2016-04-04] MEDS: FUROSEMIDE 40 MG TABLET PO SCH (11:14)
[2016-04-04] MEDS: DOXYCYCLINE HYCLATE 100 MG TABLET PO SCH ×2 (11:14→22:42)
[2016-04-04] MEDS: ATORVASTATIN CALCIUM 40 MG TABLET PO SCH (11:14)
[2016-04-04] MEDS: CETIRIZINE 10 MG TABLET PO SCH (11:15)
[2016-04-04] MEDS: ENOXAPARIN SODIUM INJ 40 MG/0.4 ML DISP.SYRIN SUBCUT SCH (11:15)
[2016-04-04] MEDS: NICOTINE 14 MG/24 HR PATCH.TD24 TD SCH (11:15)
[2016-04-04] MEDS: FINASTERIDE 5 MG TABLET PO SCH (11:15)
[2016-04-04] MEDS: DOCUSATE SODIUM 100 MG CAPSULE PO SCH ×2 (11:15→17:05)
[2016-04-04] MEDS: FLUTICASONE NASAL SPRAY 50 MCG/SPRY 120 SPRAY/16 GM NASL SCH (11:18)
[2016-04-04] MEDS: TIOTROPIUM BROMIDE DPI 5 CAP/KIT (18 MCG/CAP) IH SCH (11:19)
--- NOTE | 2016-04-04 14:32 | PDOC PROGRESS REPORT ---
Subjective Progress Note for:: 04/04/16 Subjective:: Patient continues to be confused. He denies shortness of breath. Patient denies fever, chills, headache, new focal weakness, chest pain, abdominal pain , nausea, vomiting, diarrhea, constipation. Physical Exam Vital Signs: Temp Pulse Resp BP Pulse Ox 98.0 F 72 19 98/42 L 94 04/04/16 12:24 04/04/16 12:24 04/04/16 12:24 04/04/16 12:24 04/04/16 12:24 Intake & Output 04/03/16 04/04/16 04/05/16 06:59 06:59 06:59 Intake Total 961 1904 473 Output Total 2700 4400 500 Balance -1739 -846 -27 Weight 90 kg 93.3 kg GENERAL: No acute distress, frail, elderly HEENT: Conjunctiva clear, nonicteric, moist mucous membranes, no JVD, midline trachea RESPIRATORY: Faint bilateral rhonchi/wheezes, good air excursion CARDIAC: Regular rate and rhythm, no murmurs/gallops/rubs ABDOMEN: Soft, nondistended, nontender, positive bowel sounds, no rebound, no guarding EXTREMETIES: No edema, cyanosis, clubbing NEUROLOGIC: Alert, oriented to person only, CN's grossly intact, no focal deficits SKIN: No rash, wounds PSYCH: Normal mood, normal affect Results Laboratory Results: 04/04/16 05:52 04/04/16 05:52 04/04/16 04/04/16 05:52 05:52 WBC 15.8 H RBC 4.10 L Hgb 12.4 L Hct 37.4 L MCV 91 MCH 30.3 MCHC 33.2 RDW 13.4 Plt Count 300 Seg Neutrophils % Not Reportable Lymphocytes % Not Reportable Monocytes % Not Reportable Eosinophils % Not Reportable Basophils % Not Reportable Absolute Neutrophils Not Reportable Absolute Lymphocytes Not Reportable Absolute Monocytes Not Reportable Absolute Eosinophils Not Reportable Absolute Basophils Not Reportable Sodium 138.0 Potassium 4.8 Chloride 97 L Carbon Dioxide 32 H Anion Gap 9 BUN 59 H Creatinine 1.14 Est GFR ( Amer) > 60 Est GFR (Non-Af Amer) > 60 Glucose 82 Calcium 9.2 03/29/16 03/30/16 04/01/16 06:40 09:35 06:41 Creatine Kinase 644 H NT-Pro-B Natriuret Pep 3720 H 7690 H Impressions: Cervical Spine CT 03/27/16 22:16 IMPRESSION: CHRONIC DEGENERATIVE CHANGES. NO ACUTE FINDINGS. Head CT 03/27/16 22:16 IMPRESSION: NO ACUTE INTRACRANIAL PROCESS. NO SIGNIFICANT CHANGE FROM PRIOR STUDY. Hip X-Ray 03/27/16 22:25 IMPRESSION: NO ACUTE OSSEOUS ABNORMALITY. Chest CT 03/28/16 01:46 IMPRESSION: No masses. Extensive coronary artery calcification. Chest X-Ray 04/03/16 06:00 IMPRESSION: NO ACUTE CARDIOPULMONARY PROCESS. NO SIGNIFICANT CHANGE FROM PRIOR STUDY. 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 Discontinue IV Solu-Medrol and taper off prednisone as pets possible. Patient may also suffer from underlying dementia as well. (2) Acute hypoxemic respiratory failure Is this a current diagnosis for this admission?: YesPlan: Continue oxygen supplementation. (3) COPD exacerbation Is this a current diagnosis for this admission?: YesPlan: Patient sounds much better today. Discontinue IV Solu-Medrol. Start prednisone 40 mg daily. Continue Xopenex secondary to tachycardia. Continue Spiriva. Continue doxycycline until 04/10/2016. Discontinue smoking. (4) Atrial fibrillation with RVR Is this a current diagnosis for this admission?: YesPlan: Patient is in sinus rhythm status post cardioversion by Dr. Leung on 2015. Continue Toprol-XL 50 mg by mouth daily. Cardiology following. Patient is not a candidate for full anticoagulation secondary to age, encephalopathy/ fall risk, comorbid conditions. We will continue aspirin 81 mg daily. (5) Heart failure, systolic, with acute decompensation Is this a current diagnosis for this admission?: YesPlan: Echocardiogram 2014 indicates EF 40-45% range. Cardiology notes indicate the patient has EF of 25-30%. Chest x-ray shows no further pulmonary edema. Continue Lasix 40 mg by mouth daily, Toprol-XL. Cardiology following. Discontinue lisinopril secondary to hyperkalemia. Start Cozaar 25 mg twice daily per recommendation of cardiology. (6) Acute renal failure Qualifiers: Acute renal failure type: unspecified Qualified Code(s): N17.9 - Acute kidney failure, unspecified Is this a current diagnosis for this admission?: YesPlan: Resolved. (7) Rhabdomyolysis Qualifiers: Rhabdomyolysis type: traumatic Encounter type: initial encounter Qualified Code(s): T79.6XXA - Traumatic ischemia of muscle, initial encounter Is this a current diagnosis for this admission?: YesPlan: Resolved. (8) Sepsis Qualifiers: Sepsis type: sepsis due to unspecified organism Qualified Code(s): A41.9 - Sepsis, unspecified organism Is this a current diagnosis for this admission?: YesPlan: Patient is now afebrile and hemodynamically stable. Continue to treat urinary tract infection. (9) UTI (urinary tract infection) Qualifiers: Urinary tract infection type: site unspecified Hematuria presence: with hematuria Qualified Code(s): N39.0 - Urinary tract infection, site not specified Is this a current diagnosis for this admission?: YesPlan: Continue doxycycline until 04/10/2016 for Citrobacter on urine culture. (10) Tobacco abuse Is this a current diagnosis for this admission?: Yes (11) Seizure disorder Is this a current diagnosis for this admission?: YesPlan: Continue phenobarbital. (12) Ambulatory dysfunction Is this a current diagnosis for this admission?: YesPlan: Continue physical therapy. Patient may require rehabilitation prior to being placed at assisted living facility. His family states that he is no longer safe living at home. PPD placed for potential SNF/NURSING HOME. (13) Do not resuscitate Is this a current diagnosis for this admission?: Yes - Time Time Spent with patient: 35 or more minutes
--- NOTE | 2016-04-04 14:48 | PROGRESS NOTE E ---
Progress Note NAME: JESENIA LÓPEZ : 1940 AGE: 75Y DATE: 04/04/2016 ROOM: 331 SUBJECTIVE: Note that the patient has stopped wheezing. He denies any shortness of breath. There is no PND, orthopnea. The patient remains in sinus rhythm. There is no chest pain. No discomfort. There is no TIA or CVA symptoms. OBJECTIVE: GENERAL: On examination, the patient is mildly obese, in no acute distress. VITAL SIGNS: He is afebrile with a temperature of 98 degrees Fahrenheit orally. Pulse is 31 beats per minute. Blood pressure is 114/34. Respirations 20 minute. O2 sats are 96% on 3L nasal cannula. HEENT: Head is atraumatic and normocephalic. Eyes: Pupils are equal, round, regular and reactive to light and accommodation. External ocular movements are normal. There is no conjunctival pallor. There is no scleral icterus. ENT is negative. NECK: Supple. There is no JVD. Carotids are equal. There are no bruits. There is no goiter. There is no lymphadenopathy. Trachea is central. LUNGS: Diminished air entry, prolonged expiration. There are no rhonchi, rales or wheezing today. There is hyperresonance on percussion. There are no rales of CHF. CARDIOVASCULAR: S1 and S2 are heard. S1 is of normal intensity. There is no S3 gallop. There is no S4 gallop. There is a systolic murmur in the left sternal border in the apex. There is no rub. ABDOMEN: Soft, nontender. There is no hepatosplenomegaly. Bowel sounds are well heard. EXTREMITIES: Femorals are diminished. There is no femoral bruits. Leg pulses are diminished. There is no pedal edema. There is no DVT or cellulitis. There is no calf tenderness. 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 PSYCHIATRIC: The patient's judgement and insight are intact. His affect is normal. INS/OUT: The patient's 24-hour intake is 1904 mL, output is 2750 mL. LABORATORY: The patient's sodium is 138, potassium 4.8, chloride 97, CO2 is 32. The patient's BUN is 59, creatinine is 1.14. GFR is greater than 60. His glucose is 82. His calcium is 9.2. The patient's white count is 15,800, hemoglobin is 12.4, hematocrit is 37.4, and his platelet count is 300,000. IMPRESSION: 1. ATRIAL FIBRILLATION WITH RAPID VENTRICULAR RESPONSE CONVERTED TO SINUS RHYTHM BY CARDIOVERSION; THE PATIENT REMAINS IN SINUS RHYTHM. Note that the patient is not a candidate for long-term, chronic anticoagulation due to frequent falls. 2. RESPIRATORY FAILURE, ACUTE ON CHRONIC, SECONDARY TO ACUTE EXACERBATION OF COPD AND CONGESTIVE HEART FAILURE AND ASTHMATIC BRONCHITIS. At present lungs are fairly clear, and the patient is almost back to his baseline. 3. ACUTE ON CHRONIC SYSTOLIC HEART FAILURE SECONDARY TO ATRIAL FIBRILLATION WITH RAPID VENTRICULAR RESPONSE IN A PATIENT WITH CARDIOMYOPATHY WITH SEVERELY REDUCED LV EJECTION FRACTION. At present heart rate is compensated. 4. HYPERTENSION. Well controlled. 5. CARDIOMYOPATHY WITH SEVERELY REDUCED LV EJECTION FRACTION. 6. CORONARY ARTERY DISEASE, HISTORY OF OLD MYOCARDIAL INFARCTION AND HISTORY OF STENTS. NO RECENT, RECURRENT ANGINAL SYMPTOMS. 7. HISTORY OF SEIZURE DISORDER, *------*. Await phenobarbital level which has been sent out. 8. HISTORY OF CVA; FULLY RECOVERED. 9. HISTORY OF ENLARGED PROSTATE. No symptoms on current medication. 10. HYPERLIPIDEMIA. 11. URINARY TRACT INFECTION. The patient on antibiotics. 12. ACUTE RENAL FAILURE. At present GFR is normal. Note with the addition of lisinopril, the patient's potassium was going up. Hence would stop the patient's lisinopril and switch him to Cozaar 25 mg p.o. b.i.d.. Continue aspirin. Continue beta renu, Toprol XL. 13. Note, 25 minutes spent on this patient with more than 50% of the time spent on direct patient and also review of the patient's medication and discussion with the hospitalist about changing the patient's medications and discussion with the patient. We will follow with you. Thanking you. DICTATING PHYSICIAN: AYAKA THOMAS M.D. [id number] PHY#: [id number] ID: [id number] JOB#: [id number] ACCT: [id number] cc: >
[2016-04-04] MEDS: TAMSULOSIN HCL 0.4 MG CAP.SR.24H PO SCH (17:06)
[2016-04-05 06:43] LABS: HEMATOCRIT 38.4 % (37.9-51.0); HEMOGLOBIN 12.9 g/dL (13.5-17.0); HGB HCT DIFFERENCE 0.3; MEAN CORPUSCULAR HEMOGLOBIN 30.9 pg (27.0-33.4); MEAN CORPUSCULAR HGB CONC 33.5 g/dL (32.0-36.0); MEAN CORPUSCULAR VOLUME 92 fl (80-97); RED BLOOD COUNT 4.15 10^6/uL (4.35-5.55); RED CELL DISTRIBUTION WIDTH 13.5 % (11.5-14.0); WHITE BLOOD COUNT 13.8 10^3/uL (4.0-10.5)
[2016-04-05 06:57] LABS: ANION GAP 12 (5-19); BLOOD UREA NITROGEN 53 mg/dL (7-20); CALCIUM 9.2 mg/dL (8.4-10.2); CARBON DIOXIDE 30 mmol/L (22-30); CHLORIDE 96 mmol/L (98-107); CREATININE RESULT 0.94 mg/dL (0.52-1.25); GLUCOSE 77 mg/dL (75-110); SODIUM 137.7 mmol/L (137-145)
[2016-04-05 07:05] LABS: BASOPHILS % (MANUAL) 2 % (0-2); EOSINOPHILS % (MANUAL) 3 % (0-6); LYMPHOCYTES % (MANUAL) 15 % (13-45); TOTAL CELLS COUNTED 100
[2016-04-05 07:07] LABS: RBC MORPHOLOGY COMMENT NORMO-CYTIC/CHROMIC; TOXIC GRANULATION SLIGHT
[2016-04-05 07:08] LABS: PLATELET CLUMPS PRESENT
[2016-04-05] MEDS: LEVALBUTEROL HCL NEB 0.63 MG/3 ML AMPUL NEB SCH ×3 (08:52→19:52)
[2016-04-05] MEDS ORDERED: PREDNISONE 20 MG TABLET PO SCH (10:00)
[2016-04-05] MEDS ORDERED: ASPIRIN 81 MG TABLET, CHEWABLE PO SCH (10:00)
[2016-04-05] MEDS: FLUTICASONE NASAL SPRAY 50 MCG/SPRY 120 SPRAY/16 GM NASL SCH (10:08)
[2016-04-05] MEDS: PHENOBARBITAL 64.8 MG TABLET PO SCH (10:08)
[2016-04-05] MEDS: FUROSEMIDE 40 MG TABLET PO SCH (10:08)
[2016-04-05] MEDS: ASPIRIN 325 MG TABLET PO SCH (10:08)
[2016-04-05] MEDS: DOXYCYCLINE HYCLATE 100 MG TABLET PO SCH ×2 (10:08→23:30)
[2016-04-05] MEDS: DOCUSATE SODIUM 100 MG CAPSULE PO SCH ×2 (10:09→17:28)
[2016-04-05] MEDS: ATORVASTATIN CALCIUM 40 MG TABLET PO SCH (10:09)
[2016-04-05] MEDS: FINASTERIDE 5 MG TABLET PO SCH (10:09)
[2016-04-05] MEDS: LOSARTAN POTASSIUM 25 MG TABLET PO SCH ×2 (10:09→23:29)
[2016-04-05] MEDS: METOPROLOL SUCCINATE 50 MG TAB.SR.24H PO SCH (10:09)
[2016-04-05] MEDS: NICOTINE 14 MG/24 HR PATCH.TD24 TD SCH (10:10)
[2016-04-05] MEDS: CETIRIZINE 10 MG TABLET PO SCH (10:10)
[2016-04-05] MEDS: TIOTROPIUM BROMIDE DPI 5 CAP/KIT (18 MCG/CAP) IH SCH (10:10)
[2016-04-05] MEDS: ENOXAPARIN SODIUM INJ 40 MG/0.4 ML DISP.SYRIN SUBCUT SCH (10:12)
[2016-04-05] MEDS: TAMSULOSIN HCL 0.4 MG CAP.SR.24H PO SCH (17:28)
--- NOTE | 2016-04-05 17:42 | PDOC PROGRESS REPORT ---
Subjective Progress Note for:: 04/05/16 Subjective:: Patient continues to be confused. He denies shortness of breath. Patient denies fever, chills, headache, new focal weakness, chest pain, abdominal pain , nausea, vomiting, diarrhea, constipation. Physical Exam Vital Signs: Temp Pulse Resp BP Pulse Ox 98.1 F 77 19 106/50 L 96 04/05/16 15:15 04/05/16 15:15 04/05/16 15:15 04/05/16 15:28 04/05/16 15:15 Intake & Output 04/04/16 04/05/16 04/06/16 06:59 06:59 06:59 Intake Total 1904 1334 592 Output Total 2750 2650 500 Balance -846 -1316 92 Weight 93.3 kg 93.3 kg GENERAL: No acute distress, frail, elderly HEENT: Conjunctiva clear, nonicteric, moist mucous membranes, no JVD, midline trachea RESPIRATORY: Faint bilateral wheezes, good air movement CARDIAC: Regular rate and rhythm, no murmurs/gallops/rubs ABDOMEN: Soft, nondistended, nontender, positive bowel sounds, no rebound, no guarding EXTREMETIES: No edema, cyanosis, clubbing NEUROLOGIC: Alert, oriented to person only, CN's grossly intact, no focal deficits SKIN: No rash, wounds PSYCH: Normal mood, normal affect Results Laboratory Results: 04/05/16 06:12 04/05/16 06:12 04/05/16 04/05/16 06:12 06:12 WBC 13.8 H RBC 4.15 L Hgb 12.9 L Hct 38.4 MCV 92 MCH 30.9 MCHC 33.5 RDW 13.5 Plt Count 297 Seg Neutrophils % Not Reportable Lymphocytes % Not Reportable Monocytes % Not Reportable Eosinophils % Not Reportable Basophils % Not Reportable Absolute Neutrophils Not Reportable Absolute Lymphocytes Not Reportable Absolute Monocytes Not Reportable Absolute Eosinophils Not Reportable Absolute Basophils Not Reportable Sodium 137.7 Potassium 5.0 Chloride 96 L Carbon Dioxide 30 Anion Gap 12 BUN 53 H Creatinine 0.94 Est GFR ( Amer) > 60 Est GFR (Non-Af Amer) > 60 Glucose 77 Calcium 9.2 03/29/16 03/30/16 04/01/16 06:40 09:35 06:41 Creatine Kinase 644 H NT-Pro-B Natriuret Pep 3720 H 7690 H Impressions: Cervical Spine CT 03/27/16 22:16 IMPRESSION: CHRONIC DEGENERATIVE CHANGES. NO ACUTE FINDINGS. Head CT 03/27/16 22:16 IMPRESSION: NO ACUTE INTRACRANIAL PROCESS. NO SIGNIFICANT CHANGE FROM PRIOR STUDY. Hip X-Ray 03/27/16 22:25 IMPRESSION: NO ACUTE OSSEOUS ABNORMALITY. Chest CT 03/28/16 01:46 IMPRESSION: No masses. Extensive coronary artery calcification. Chest X-Ray 04/03/16 06:00 IMPRESSION: NO ACUTE CARDIOPULMONARY PROCESS. NO SIGNIFICANT CHANGE FROM PRIOR STUDY. 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 Continue to taper off prednisone as soon as possible. Patient is likely suffering from underlying dementia as well. According to his daughter they have had to assist him in his daily living for approximately 3 years. (2) Acute hypoxemic respiratory failure Is this a current diagnosis for this admission?: YesPlan: Continue oxygen supplementation. (3) COPD exacerbation Is this a current diagnosis for this admission?: YesPlan: Patient sounds much better today. Decrease prednisone to 20 mg daily. Continue Xopenex secondary to tachycardia. Continue Spiriva. Continue doxycycline until 04/10/2016. Discontinue smoking. (4) Atrial fibrillation with RVR Is this a current diagnosis for this admission?: YesPlan: Patient is in sinus rhythm status post cardioversion by Dr. Leung on 2015. Continue Toprol-XL 50 mg by mouth daily. Cardiology following. Patient is not a candidate for full anticoagulation secondary to age, encephalopathy/ fall risk, comorbid conditions. We will continue aspirin 81 mg daily. (5) Heart failure, systolic, with acute decompensation Is this a current diagnosis for this admission?: YesPlan: Echocardiogram 2014 indicates EF 40-45% range. Cardiology notes indicate the patient has EF of 25-30% on outpatient echo. Chest x-ray shows no further pulmonary edema. Continue Lasix 40 mg by mouth daily, Toprol-XL. Cardiology following. Discontinued lisinopril secondary to hyperkalemia. Start Cozaar 25 mg twice daily per recommendation of cardiology. (6) Acute renal failure Qualifiers: Acute renal failure type: unspecified Qualified Code(s): N17.9 - Acute kidney failure, unspecified Is this a current diagnosis for this admission?: YesPlan: Resolved. (7) Rhabdomyolysis Qualifiers: Rhabdomyolysis type: traumatic Encounter type: initial encounter Qualified Code(s): T79.6XXA - Traumatic ischemia of muscle, initial encounter Is this a current diagnosis for this admission?: YesPlan: Resolved. (8) Sepsis Qualifiers: Sepsis type: sepsis due to unspecified organism Qualified Code(s): A41.9 - Sepsis, unspecified organism Is this a current diagnosis for this admission?: YesPlan: Patient is now afebrile and hemodynamically stable. Continue to treat urinary tract infection. (9) UTI (urinary tract infection) Qualifiers: Urinary tract infection type: site unspecified Hematuria presence: with hematuria Qualified Code(s): N39.0 - Urinary tract infection, site not specified Is this a current diagnosis for this admission?: YesPlan: Continue doxycycline until 04/10/2016 for Citrobacter on urine culture. (10) Tobacco abuse Is this a current diagnosis for this admission?: Yes (11) Seizure disorder Is this a current diagnosis for this admission?: YesPlan: Continue phenobarbital. (12) Ambulatory dysfunction Is this a current diagnosis for this admission?: YesPlan: Continue physical therapy. Patient may require rehabilitation prior to being placed at assisted living facility. His family states that he is no longer safe living at home. PPD placed for potential SNF/[facility]. (13) Do not resuscitate Is this a current diagnosis for this admission?: Yes - Time Time Spent with patient: 35 or more minutes
--- NOTE | 2016-04-05 18:13 | PROGRESS NOTE E ---
Progress Note NAME: JESENIA LÓPEZ : 1940 AGE: 75Y DATE: 04/05/2016 ROOM: 331 SUBJECTIVE: Note that the patient has again started to wheeze and to have respiratory difficulty. He denies any chest pain or discomfort. There is no PND, orthopnea or leg edema. The patient remains in sinus rhythm. OBJECTIVE: GENERAL: On examination, the patient is mildly obese, at present in mild respiratory distress. VITAL SIGNS: His temperature is 98.2 degrees Fahrenheit. His pulse is 76 beats per minute. Blood pressure 113/60. Respirations are 22 per minute. O2 saturations are 90% on room air. HEENT: Head is atraumatic, normocephalic. Eyes: Pupils are equal, round, regular, reactive to light and accommodation. Extraocular movements are normal. There is no conjunctival pallor. There is no scleral icterus. ENT is negative. NECK: Supple. There is no JVD. Carotids are equal; there is no bruit. There is no goiter. There is no lymphadenopathy. Trachea is central. LUNGS: Diminished air entry and prolonged expiration. There are scattered rhonchi and wheezing but no rales of CHF. There is hyperresonance on percussion. CARDIOVASCULAR: S1, S2 are heard. There is no S3 gallop. There is no S4 gallop. S1 is of normal intensity. Systolic murmur at the left sternal border and the apex. There is no rub. ABDOMEN: Soft, nontender. There is no hepatosplenomegaly. Bowel sounds are well heard. EXTREMITIES: Femorals are diminished. There are no femoral bruits. Leg pulses are diminished. There is no pedal edema. There is DVT or cellulitis. There is no calf tenderness. CENTRAL NERVOUS SYSTEM: The patient is conscious, slightly confused but with no focal deficit. PSYCHIATRIC: The patient does not appear to be agitated or depressed. LABORATORY DATA: The patient's white count is 13,800; hemoglobin is 12.9; hematocrit is 38.4; platelet count is 297,000. The patient's sodium is 137.7; potassium 5.0; chloride 96. The patient's CO2 is 30. The patient's BUN is 33, creatinine 0.94. GFR is greater than 60. Glucose is 77. Calcium is 9.2. ASSESSMENT: 1. ATRIAL FIBRILLATION WITH RAPID VENTRICULAR RESPONSE CONVERTED TO SINUS RHYTHM AFTER CARDIOVERSION. The patient remains in sinus rhythm. Note that the patient is not a candidate for a long-term chronic anticoagulation due to frequent falls. At present, the patient is DVT prophylaxis with Lovenox. 2. RESPIRATORY FAILURE ACUTE ON CHRONIC SECONDARY TO ACUTE EXACERBATION OF CHRONIC OBSTRUCTIVE PULMONARY DISEASE AND CONGESTIVE HEART FAILURE AND ASTHMATIC BRONCHITIS. At present, there is no evidence of congestive heart failure. The patient has again started wheezing and having rhonchi, no rub. 3. ACUTE ON CHRONIC SYSTOLIC HEART FAILURE SECONDARY TO ATRIAL FIBRILLATION WITH SEVERELY REDUCED LEFT VENTRICULAR EJECTION FRACTION. At present, heart failure is well compensated. 4. HYPERTENSION WELL CONTROLLED. 5. ISCHEMIC CARDIOMYOPATHY WITH SEVERELY REDUCED LEFT VENTRICULAR EJECTION FRACTION. 6. CORONARY ARTERY DISEASE, HISTORY OF OLD MYOCARDIAL INFARCTION, HISTORY OF STENTS. No recent or recurrent anginal symptoms. 7. HISTORY OF SEIZURE DISORDER. None this admission. 8. HISTORY OF CEREBROVASCULAR ACCIDENT, FULLY RECOVERED. 9. HISTORY OF ENLARGED PROSTATE. No symptoms on the current medications. 10. HYPERLIPIDEMIA. 11. URINARY TRACT INFECTION. Patient on antibiotics. 12. RENAL INSUFFICIENCY. The patient's BUN is up, but the GFR is still normal. RECOMMENDATIONS: Note with the addition of *------*, the patient's potassium is going up. Hence, the patient is on Coreg. The potassium is high-normal at 5.0 Continue aspirin. Continue beta renu. TIME SPENT: Note 30 minutes spent on this patient with more than 50% of the time spent in direct patient care and also reviewing the patient's medications and discussions with the hospitalist. We will follow with you. DICTATING PHYSICIAN: AYAKA THOMAS M.D. [id number] BRAYAN#: [id number] ID: [id number] JOB#: [id number] ACCT: [id number] cc: >
[2016-04-06] MEDS ORDERED: BISACODYL 10 MG SUPP.RECT PR PRN (08:01)
[2016-04-06] MEDS: LEVALBUTEROL HCL NEB 0.63 MG/3 ML AMPUL NEB SCH ×3 (08:17→20:46)
[2016-04-06] MEDS ORDERED: MINERAL OIL ENEMA 133 ML PR ONE (09:00)
[2016-04-06] MEDS: ENOXAPARIN SODIUM INJ 40 MG/0.4 ML DISP.SYRIN SUBCUT SCH (09:53)
[2016-04-06] MEDS: ASPIRIN 325 MG TABLET PO SCH (09:56)
[2016-04-06] MEDS: PHENOBARBITAL 64.8 MG TABLET PO SCH (09:56)
[2016-04-06] MEDS: NICOTINE 14 MG/24 HR PATCH.TD24 TD SCH (09:56)
[2016-04-06] MEDS: ATORVASTATIN CALCIUM 40 MG TABLET PO SCH (09:57)
[2016-04-06] MEDS: METOPROLOL SUCCINATE 50 MG TAB.SR.24H PO SCH (09:57)
[2016-04-06] MEDS: DOCUSATE SODIUM 100 MG CAPSULE PO SCH ×2 (09:58→19:07)
[2016-04-06] MEDS: FINASTERIDE 5 MG TABLET PO SCH (09:58)
[2016-04-06] MEDS: DOXYCYCLINE HYCLATE 100 MG TABLET PO SCH ×2 (09:58→22:06)
[2016-04-06] MEDS: PREDNISONE 20 MG TABLET PO SCH (09:58)
[2016-04-06] MEDS: CETIRIZINE 10 MG TABLET PO SCH (09:58)
[2016-04-06] MEDS: FLUTICASONE NASAL SPRAY 50 MCG/SPRY 120 SPRAY/16 GM NASL SCH (10:04)
[2016-04-06] MEDS: TIOTROPIUM BROMIDE DPI 5 CAP/KIT (18 MCG/CAP) IH SCH (10:07)
[2016-04-06] MEDS: FUROSEMIDE 40 MG TABLET PO SCH (10:08)
[2016-04-06] MEDS: LOSARTAN POTASSIUM 25 MG TABLET PO SCH (10:24)
--- NOTE | 2016-04-06 12:37 | PROGRESS NOTE E ---
Progress Note NAME: JESENIA LÓPEZ : 1940 AGE: 75Y DATE: 04/01/2016 ROOM: 331 SUBJECTIVE: The patient continues to be short of breath and continues to have rhonchi and wheezing. He has a cough, which is not productive of any sputum. He denies any chest pain or discomfort. He remains in sinus rhythm. There is orthopnea present, but no PND. There is no leg edema. There is no ventricular arrhythmias on the monitor and the patient is in sinus rhythm, post cardioversion yesterday from atrial fibrillation. There is no recurrence of atrial fibrillation. OBJECTIVE: VITAL SIGNS: He is afebrile with a temperature is 97.6 degrees Fahrenheit, pulse is 68 beats/minute, blood pressure is 117/72, respirations are 22 per minute, O2 sats are 95% on 2.5L nasal cannula. GENERAL: The patient is mildly obese. HEENT: Normocephalic, atraumatic. Pupils are equal, round, regular, and reactive to light and accommodation. Extraocular movements are normal. There is no conjunctival pallor. There is no scleral icterus. ENT is negative. NECK: Supple. There is no JVD. Carotids are equal. There is no bruit. Trachea is central. There is no goiter. LUNGS: Diminished air entry with prolonged expiration with scattered rhonchi and wheezing. No rales or CHF. There is hyperresonance on percussion. HEART: S1 and S2 is heard. The S1 is of normal intensity. There is no S3 gallop. There is no S4 gallop. There is systolic murmur at the left sternal border of the apex. There is no rub. ABDOMEN: Soft, obese, nontender. There is no hepatosplenomegaly. Bowel sounds are well heard. There are no tender areas. EXTREMITIES: Femorals are diminished. There are no femoral bruits. Leg pulses are diminished. There is no pedal edema. There is no DVT or cellulitis. There is no calf tenderness. CENTRAL NERVOUS SYSTEM: The patient is conscious, awake and alert, seems to be oriented x3 with no focal deficits. PSYCHIATRIC: The patient's judgment and insight are intact. The patient does not appear to be agitated or depressed. DIAGNOSTICS: The patient's chest x-ray shows stable cardiomegaly without any failure or infiltrates. The patient's 24 hour intake has been 428 mL in and out is 3400 mL. The patient's white count is 11,200, hemoglobin 11.6, hematocrit 33.7, platelet count is 215,000. The patient's sodium is 141.2, potassium 4.0, chloride 103, CO2 is 30. The patient's BUN is 33, creatinine 1.10. GFR is greater than 60. The glucose is 102. His calcium is 9.2. His NT-proBNP is 7690. ASSESSMENT: 1. ATRIAL FIBRILLATION WITH RAPID VENTRICULAR RESPONSE, NOW IN SINUS RHYTHM POST CARDIOVERSION. WE WILL STOP THE PATIENT'S AMIODARONE DRIP AND CONTINUE THE PATIENT ON METOPROLOL. 2. RESPIRATORY FAILURE SECONDARY TO ACUTE EXACERBATION OF CHRONIC OBSTRUCTIVE PULMONARY DISEASE PLUS [id number] CONGESTIVE HEART FAILURE AT PRESENT. THE CONGESTIVE HEART FAILURE SEEMS TO BE COMPENSATED AND IT WAS [id number] HYPOXIC RESPIRATORY FAILURE SECONDARY TO CHRONIC ACUTE EXACERBATION OF COPD. 3. CARDIOMYOPATHY WITH SEVERELY REDUCED LV EJECTION FRACTION OF 25% TO 30%, AT PRESENT COMPENSATED. NO LEFT OR RIGHT HEART FAILURE. 4. HYPERTENSION, WELL CONTROLLED. 5. CARDIOMYOPATHY WITH SEVERELY REDUCED LV EJECTION FRACTION CONSISTENT WITH ISCHEMIC CARDIOMYOPATHY. 6. CORONARY ARTERY DISEASE WITH HISTORY OF MYOCARDIAL INFARCTION, MOST LIKELY OLD INFERIOR WALL MYOCARDIAL INFARCTION WITH HISTORY OF STENT IN THE REMOTE PAST, MOST LIKELY OF THE RIGHT CORONARY ARTERY. 7. HISTORY OF SEIZURE DISORDER, NONE ON THIS ADMISSION. 8. HISTORY OF CVA, NO RECURRENCE. 9. HISTORY OF ENLARGED PROSTATE, SYMPTOMS CONTROLLED WITH MEDICATION. 10. HYPERLIPIDEMIA. 11. HISTORY OF TOBACCO ABUSE. 12. URINARY TRACT INFECTION. 13. HISTORY OF RENAL FAILURE. PLAN: Continue COPD treatment. Continue steroids. Continue antibiotics. Continue metoprolol to keep the patient in sinus rhythm. Continue Lovenox at present at 1 mg/kg subcutaneously q.12 h. In view of the patient's frequent falls, the patient may not be a candidate for long-term chronic anticoagulation. This has been discussed with the patient and the patient's daughter. Discussed with the hospitalist. Note that 35 minutes spent on the patient with more than 50% of the time spent on direct patient care and reviewing the patient's medication and adjusting the patient's medications, and also discussions with the patient, the patient's daughter and the hospitalist. Will follow with you. DICTATING PHYSICIAN: AYAKA THOMAS M.D. [id number] PHY#: [id number] ID: [id number] JOB#: [id number] ACCT: [id number] cc: >
[2016-04-06] MEDS ORDERED: BISACODYL 5 MG TABEC PO ONE (14:15)
--- NOTE | 2016-04-06 14:58 | PROGRESS NOTE E ---
Progress Note NAME: JESENIA LÓPEZ : 1940 AGE: 75Y DATE: 04/06/2016 ROOM: 331 SUBJECTIVE: Of note, the patient remains in sinus rhythm with no recurrence of atrial fibrillation. He still is wheezing but not as much as yesterday. He does not seem to be in any obvious respiratory distress. The patient is oriented to person and place but not oriented to time. There is no PND, orthopnea or leg edema. There is a dry cough without any sputum production. There are no signs or symptoms of aspiration. The patient has no arrhythmia seen on the monitor and there is no TIA or CVA symptoms. OBJECTIVE: GENERAL: On examination, the patient is mildly obese at present, in no distress. VITAL SIGNS: He is afebrile with a temperature of 97.5 degrees Fahrenheit, pulse is 65 beats per minute, blood pressure 92/34, respirations are 18 per minute, and O2 sats are 94% on room air. HEENT: Head - Atraumatic and normocephalic. Eyes - Pupils are equal, round, regular, and reactive to light and accommodation. Extraocular movements are normal. There is no conjunctival pallor. There is no scleral icterus. ENT - Negative. NECK: Supple. There is no JVD. Carotids are equal. There is no bruit. There is no goiter. There is no lymphadenopathy. Trachea is central. LUNGS: Diminished air entry. Prolonged expiration. There are a few scattered rhonchi and very occasional wheezing but no rales or CHF. There is hyperresonance on percussion. HEART: S1 and S2 is heard. There is no S3 gallop and there is no S4 gallop. S1 is of normal intensity. There is a systolic murmur in the left sternal border and in the apex. There is no rub. ABDOMEN: Soft and nontender. There is no hepatosplenomegaly. Bowel sounds are well heard. EXTREMITIES: Femorals are diminished. There are no femoral bruits. Leg pulses are diminished. There is no pedal edema. There is no DVT or cellulitis. There is no calf tenderness. CENTRAL NERVOUS SYSTEM: The patient is conscious. As mentioned earlier, he is oriented to person and place but not oriented to time. There are no focal deficits. The patient does not appear to be agitated or depressed. The patient appears to be tearful. DIAGNOSTICS: The patient's 24-hour intake is 1118 mL and output is 1900 mL. The patient's KUB x-ray shows large amount of stool throughout the colon, air with borderline distended small bowel loops in the right lower quadrant, no suspicious calcifications. There is no gross mass or suggestion of organomegaly. No other significant findings. IMPRESSION AND PLAN: 1. PAROXYSMAL ATRIAL FIBRILLATION, REMAINS IN SINUS RHYTHM AFTER CARDIOVERSION. The patient is on a beta renu. 2. RESPIRATORY FAILURE, ACUTE ON CHRONIC SECONDARY TO ACUTE EXACERBATION OF COPD, CONGESTIVE HEART FAILURE AND ASTHMATIC BRONCHITIS. At present there is no evidence of congestive heart failure. The patient's pulmonary status is improving. 3. ACUTE ON CHRONIC SYSTOLIC HEART FAILURE SECONDARY TO ATRIAL FIBRILLATION WITH RAPID VENTRICULAR RESPONSE IN A PATIENT WITH SEVERELY REDUCED LEFT VENTRICULAR EJECTION FRACTION. At present heart failure is well compensated and the patient is in sinus rhythm. There is no clinical evidence of heart failure at present. 4. HYPERTENSION. In fact, the blood pressure is on the low side. 5. ISCHEMIC CARDIOMYOPATHY WITH SEVERELY REDUCED LEFT VENTRICULAR EJECTION FRACTION. 6. 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 No recurrent or recent anginal symptoms. 7. HISTORY OF SEIZURE DISORDER, NONE THIS ADMISSION. 8. HISTORY OF CEREBROVASCULAR ACCIDENT, FULLY RECOVERED. 9. HISTORY OF ENLARGED PROSTATE. No symptoms or current medications. 10. HYPERLIPIDEMIA. 11. URINARY TRACT INFECTION. 12. RENAL INSUFFICIENCY. The GFR is normal but the BUN is slightly up. Of note, the patient's DIANE inhibitor was changed to ARB in view of the patient's potassium being slightly on the higher side. In view of the patient's potassium yesterday still being 5 and in view of the patient's blood pressure being 92 systolic, we will cut down the Cozaar to 25 mg p.o. daily, continue metoprolol, and continue aspirin. Of note, the patient is not a candidate for long-term anticoagulation. Of note, THE PATIENT IS A DNR. His daughter is his surrogate healthcare decision maker. Of note, 30 minutes was spent on this patient, including adjusting his medications after reviewing them and also discussions with the patient's daughter and also discussions with the hospitalist attending taking care of the patient. We will follow with you. DICTATING PHYSICIAN: AYAKA THOMAS M.D. [id number] PHY#: [id number] ID: [id number] JOB#: [id number] ACCT: [id number] cc: >
[2016-04-06] MEDS: TAMSULOSIN HCL 0.4 MG CAP.SR.24H PO SCH (19:07)
[2016-04-06] MEDS: SENNOSIDES/DOCUSATE 8.6-50 MG 1 EACH TABLET PO SCH (22:06)
[2016-04-07 06:57] LABS: ANION GAP 8 (5-19); BLOOD UREA NITROGEN 47 mg/dL (7-20); CALCIUM 8.9 mg/dL (8.4-10.2); CARBON DIOXIDE 30 mmol/L (22-30); CHLORIDE 98 mmol/L (98-107); CREATININE RESULT 1.03 mg/dL (0.52-1.25); GLUCOSE 78 mg/dL (75-110); MAGNESIUM 2.5 mg/dL (1.6-2.3); POTASSIUM 4.7 mmol/L (3.6-5.0); SODIUM 135.9 mmol/L (137-145)
[2016-04-07] MEDS: LEVALBUTEROL HCL NEB 0.63 MG/3 ML AMPUL NEB SCH ×3 (08:22→20:33)
[2016-04-07] MEDS: NORMAL SALINE 1000 ML 1,000 ML IV PRN ×2 (08:24→23:28)
[2016-04-07] MEDS: ENOXAPARIN SODIUM INJ 40 MG/0.4 ML DISP.SYRIN SUBCUT SCH (08:28)
[2016-04-07] MEDS ORDERED: LOSARTAN POTASSIUM 25 MG TABLET PO SCH (10:00)
[2016-04-07] MEDS: ASPIRIN 325 MG TABLET PO SCH (10:26)
[2016-04-07] MEDS: ATORVASTATIN CALCIUM 40 MG TABLET PO SCH (10:26)
[2016-04-07] MEDS: FUROSEMIDE 40 MG TABLET PO SCH (10:26)
[2016-04-07] MEDS: PHENOBARBITAL 64.8 MG TABLET PO SCH (10:29)
[2016-04-07] MEDS: DOCUSATE SODIUM 100 MG CAPSULE PO SCH ×2 (10:29→18:39)
[2016-04-07] MEDS: PREDNISONE 20 MG TABLET PO SCH (10:30)
[2016-04-07] MEDS: NICOTINE 14 MG/24 HR PATCH.TD24 TD SCH (10:30)
[2016-04-07] MEDS: FINASTERIDE 5 MG TABLET PO SCH (10:30)
[2016-04-07] MEDS: TIOTROPIUM BROMIDE DPI 5 CAP/KIT (18 MCG/CAP) IH SCH (10:32)
[2016-04-07] MEDS: FLUTICASONE NASAL SPRAY 50 MCG/SPRY 120 SPRAY/16 GM NASL SCH (10:32)
[2016-04-07] MEDS: CETIRIZINE 10 MG TABLET PO SCH (10:36)
[2016-04-07] MEDS: DOXYCYCLINE HYCLATE 100 MG TABLET PO SCH ×2 (10:36→22:22)
[2016-04-07] MEDS: METOPROLOL SUCCINATE 50 MG TAB.SR.24H PO SCH (10:36)
[2016-04-07] MEDS: TAMSULOSIN HCL 0.4 MG CAP.SR.24H PO SCH (18:39)
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
[2016-04-07] MEDS ORDERED: FUROSEMIDE 40 MG TABLET PO SCH (21:55)
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
--- NOTE | 2016-04-07 22:09 | PDOC PROGRESS REPORT ---
Subjective Progress Note for:: 04/06/16 Subjective:: Patient is oriented to self alone. Unable to obtain full review of systems from patient. Physical Exam Vital Signs: Temp Pulse Resp BP Pulse Ox 98.0 F 74 18 108/50 L 95 04/06/16 04:19 04/06/16 04:19 04/06/16 04:19 04/06/16 04:19 04/06/16 04:19 Intake & Output 04/05/16 04/06/16 04/07/16 06:59 06:59 06:59 Intake Total 1334 1118 Output Total 2650 1900 Balance -1316 -782 Weight 93.3 kg 89.1 kg Exam: GENERAL: No acute distress, frail, elderly HEENT: Conjunctiva clear, nonicteric, moist mucous membranes, no JVD, midline trachea RESPIRATORY: Faint bilateral wheezes, good air movement CARDIAC: Regular rate and rhythm, no murmurs/gallops/rubs ABDOMEN: Soft, nondistended, nontender, diminished bowel sounds, no rebound, no rigidity, no guarding EXTREMETIES: No edema, cyanosis, clubbing NEUROLOGIC: Alert, oriented to person only, CN's grossly intact, no focal deficits SKIN: No rash, wounds PSYCH: Normal mood, normal affect Results Laboratory Results: 04/05/16 06:12 04/05/16 06:12 03/29/16 03/30/16 04/01/16 06:40 09:35 06:41 Creatine Kinase 644 H NT-Pro-B Natriuret Pep 3720 H 7690 H Impressions: Cervical Spine CT 03/27/16 22:16 IMPRESSION: CHRONIC DEGENERATIVE CHANGES. NO ACUTE FINDINGS. Head CT 03/27/16 22:16 IMPRESSION: NO ACUTE INTRACRANIAL PROCESS. NO SIGNIFICANT CHANGE FROM PRIOR STUDY. Hip X-Ray 03/27/16 22:25 IMPRESSION: NO ACUTE OSSEOUS ABNORMALITY. Chest CT 03/28/16 01:46 IMPRESSION: No masses. Extensive coronary artery calcification. Chest X-Ray 04/03/16 06:00 IMPRESSION: NO ACUTE CARDIOPULMONARY PROCESS. NO SIGNIFICANT CHANGE FROM PRIOR STUDY. Assessment & Plan - Diagnosis (1) Sepsis Qualifiers: Sepsis type: sepsis due to unspecified organism Qualified Code(s): A41.9 - Sepsis, unspecified organism Is this a current diagnosis for this admission?: YesPlan: Patient grew out Citrobacter. Continue doxycycline until 04/10/16 (2) Acute hypoxemic respiratory failure Is this a current diagnosis for this admission?: YesPlan: Oxygen as needed. 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 (4) COPD exacerbation Is this a current diagnosis for this admission?: YesPlan: Scheduled nebulized treatments. Smoking cessation. Decrease prednisone as tolerated. Xopenex due to tachycardia. (5) Acute renal failure Qualifiers: Acute renal failure type: unspecified Qualified Code(s): N17.9 - Acute kidney failure, unspecified Is this a current diagnosis for this admission?: Yes (6) Hypernatremia Is this a current diagnosis for this admission?: Yes (7) Rhabdomyolysis Qualifiers: Rhabdomyolysis type: traumatic Encounter type: initial encounter Qualified Code(s): T79.6XXA - Traumatic ischemia of muscle, initial encounter Is this a current diagnosis for this admission?: Yes (8) UTI (urinary tract infection) Qualifiers: Urinary tract infection type: site unspecified Hematuria presence: with hematuria Qualified Code(s): N39.0 - Urinary tract infection, site not specified Is this a current diagnosis for this admission?: Yes (9) Tobacco abuse Is this a current diagnosis for this admission?: Yes (10) Obesity (BMI 30.0-34.9) Is this a current diagnosis for this admission?: Yes (11) Seizure disorder Is this a current diagnosis for this admission?: Yes (12) Chronic combined systolic and diastolic CHF (congestive heart failure) Is this a current diagnosis for this admission?: YesPlan: Patient 2 years ago had an echo which revealed a grade 2 diastolic dysfunction and an EF of between 40-45%. Patient currently being diuresed and will decrease his Lasix as well due to hypotension. Patient currently on Toprol, Cozaar, and aspirin. (13) Atrial fibrillation with RVR Is this a current diagnosis for this admission?: YesPlan: Patient did undergo cardioversion on 03/31/2016. We appreciate cardiology input. Continue Toprol. - Time Time Spent with patient: 25-34 minutes Medications reviewed and adjusted accordingly: Yes Anticipated discharge: Acute Rehab Within: when bed available
[2016-04-07] MEDS: SENNOSIDES/DOCUSATE 8.6-50 MG 1 EACH TABLET PO SCH (22:22)
[2016-04-08] MEDS ORDERED: LORAZEPAM INJ 2 MG/1 ML VIAL IM ONE (01:30)
[2016-04-08] MEDS: LEVALBUTEROL HCL NEB 0.63 MG/3 ML AMPUL NEB SCH ×3 (07:52→20:26)
[2016-04-08] MEDS ORDERED: HALOPERIDOL LACTATE INJ 5 MG/1 ML VIAL IV PRN (07:57)
[2016-04-08] MEDS: ENOXAPARIN SODIUM INJ 40 MG/0.4 ML DISP.SYRIN SUBCUT SCH (08:55)
[2016-04-08] MEDS ORDERED: PREDNISONE 20 MG TABLET PO SCH (10:00)
[2016-04-08] MEDS: METOPROLOL SUCCINATE 50 MG TAB.SR.24H PO SCH (10:04)
[2016-04-08] MEDS: ASPIRIN 325 MG TABLET PO SCH (10:04)
[2016-04-08] MEDS: LOSARTAN POTASSIUM 25 MG TABLET PO SCH (10:05)
[2016-04-08] MEDS: CETIRIZINE 10 MG TABLET PO SCH (10:05)
[2016-04-08] MEDS: DOCUSATE SODIUM 100 MG CAPSULE PO SCH ×2 (10:05→17:58)
[2016-04-08] MEDS: ATORVASTATIN CALCIUM 40 MG TABLET PO SCH (10:05)
[2016-04-08] MEDS: DOXYCYCLINE HYCLATE 100 MG TABLET PO SCH ×2 (10:05→22:46)
[2016-04-08] MEDS: FINASTERIDE 5 MG TABLET PO SCH (10:06)
[2016-04-08] MEDS: PHENOBARBITAL 64.8 MG TABLET PO SCH (10:06)
[2016-04-08] MEDS: NICOTINE 14 MG/24 HR PATCH.TD24 TD SCH (10:07)
[2016-04-08] MEDS: FLUTICASONE NASAL SPRAY 50 MCG/SPRY 120 SPRAY/16 GM NASL SCH (11:45)
[2016-04-08] MEDS: TIOTROPIUM BROMIDE DPI 5 CAP/KIT (18 MCG/CAP) IH SCH (12:26)
[2016-04-08] MEDS ORDERED: LIDOCAINE 2% URO-JET 5 ML KIT MM ONE (14:00)
[2016-04-08] MEDS ORDERED: MINERAL OIL ENEMA 133 ML PR ONE (14:00)
[2016-04-08] MEDS: TAMSULOSIN HCL 0.4 MG CAP.SR.24H PO SCH (17:58)
--- NOTE | 2016-04-08 19:21 | PDOC PROGRESS REPORT ---
Subjective Progress Note for:: 04/08/16 Subjective:: Patient was agitated overnight requiring restraints. Patient seen with his daughters at bedside. He reports that they've been caring for their father of the last 3 years since I saw him last. At that time we discussed his dementia. They feel that he is appropriate for assisted living/SNIF after rehabilitation. And I agree. Patient attempted to get out of bed when I see him. Unable to obtain review of systems secondary to mental status. Physical Exam Vital Signs: Temp Pulse Resp BP Pulse Ox 98.4 F 83 16 102/47 L 95 04/07/16 19:52 04/07/16 20:33 04/07/16 20:33 04/07/16 19:52 04/07/16 19:52 Intake & Output 04/07/16 04/08/16 04/09/16 06:59 06:59 06:59 Intake Total 1618 651 Output Total 1550 900 Balance 68 -249 Weight 88 kg 88.9 kg Exam: GENERAL: Attempting to get out of bed, frail, elderly HEENT: Conjunctiva clear, nonicteric, moist mucous membranes, no JVD, midline trachea RESPIRATORY: Clear to auscultation bilaterally, good air movement CARDIAC: Regular rate and rhythm, no murmurs/gallops/rubs ABDOMEN: Grossly distended bladder palpable, Distended, nontender, active bowel sounds, no rebound, no rigidity, no guarding EXTREMETIES: No edema, cyanosis, clubbing NEUROLOGIC: Alert, oriented to person only, CN's grossly intact, no focal deficits SKIN: No rash, wounds PSYCH: confused Results Laboratory Results: 04/05/16 06:12 04/07/16 06:00 03/29/16 03/30/16 04/01/16 06:40 09:35 06:41 Creatine Kinase 644 H NT-Pro-B Natriuret Pep 3720 H 7690 H Impressions: Cervical Spine CT 03/27/16 22:16 IMPRESSION: CHRONIC DEGENERATIVE CHANGES. NO ACUTE FINDINGS. Head CT 03/27/16 22:16 IMPRESSION: NO ACUTE INTRACRANIAL PROCESS. NO SIGNIFICANT CHANGE FROM PRIOR STUDY. Hip X-Ray 03/27/16 22:25 IMPRESSION: NO ACUTE OSSEOUS ABNORMALITY. Chest CT 03/28/16 01:46 IMPRESSION: No masses. Extensive coronary artery calcification. Chest X-Ray 04/03/16 06:00 IMPRESSION: NO ACUTE CARDIOPULMONARY PROCESS. NO SIGNIFICANT CHANGE FROM PRIOR STUDY. KUB X-Ray 04/06/16 00:00 IMPRESSION: Large amount of stool throughout the colon Assessment & Plan - Diagnosis (1) Acute urinary retention Is this a current diagnosis for this admission?: YesPlan: Patient has history of prostate headache issues. Continue Flomax and Proscar. Replace Anderson. Patient had over 900 on bladder scan. (2) Sepsis Qualifiers: Sepsis type: sepsis due to unspecified organism Qualified Code(s): A41.9 - Sepsis, unspecified organism Is this a current diagnosis for this admission?: YesPlan: Patient grew out Citrobacter. Continue doxycycline until 04/10/16 (3) Acute hypoxemic respiratory failure Is this a current diagnosis for this admission?: YesPlan: Resolved no longer requiring oxygen (4) Acute encephalopathy Is this a current diagnosis for this admission?: YesPlan: Will stop prednisone today. Current encephalopathy secondary to urinary retention (5) COPD exacerbation Is this a current diagnosis for this admission?: YesPlan: Scheduled nebulized treatments. Smoking cessation. Stop prednisone. Xopenex due to tachycardia. (6) Acute renal failure Qualifiers: Acute renal failure type: unspecified Qualified Code(s): N17.9 - Acute kidney failure, unspecified Is this a current diagnosis for this admission?: YesPlan: Secondary to dehydration, rhabdomyolysis. Baseline creatinine approximately 1.05-1.2. Encourage oral rehydration (7) Hypernatremia Is this a current diagnosis for this admission?: Yes (8) Rhabdomyolysis Qualifiers: Rhabdomyolysis type: traumatic Encounter type: initial encounter Qualified Code(s): T79.6XXA - Traumatic ischemia of muscle, initial encounter Is this a current diagnosis for this admission?: Yes (9) UTI (urinary tract infection) Qualifiers: Urinary tract infection type: site unspecified Hematuria presence: with hematuria Qualified Code(s): N39.0 - Urinary tract infection, site not specified Is this a current diagnosis for this admission?: YesPlan: Patient has history of Aeromonas UTI. 2. Will begin patient on Zosyn as this organism has not been shown to be resistant to it. Currently growing gram-negative rods. (10) Tobacco abuse Is this a current diagnosis for this admission?: Yes (11) Obesity (BMI 30.0-34.9) Is this a current diagnosis for this admission?: Yes (12) Seizure disorder Is this a current diagnosis for this admission?: Yes (13) Chronic combined systolic and diastolic CHF (congestive heart failure) Is this a current diagnosis for this admission?: Yes (14) Atrial fibrillation with RVR Is this a current diagnosis for this admission?: Yes - Time Time Spent with patient: 35 or more minutes Medications reviewed and adjusted accordingly: Yes Anticipated discharge: Acute Rehab Within: when bed available
[2016-04-08] MEDS ORDERED: LACTULOSE SYRUP 20 GM/30 ML UDCUP PO ONE (20:00)
--- NOTE | 2016-04-08 21:18 | PROGRESS NOTE E ---
Progress Note NAME: JESENIA LÓPEZ : 1940 AGE: 75Y DATE: 04/08/2016 ROOM: 527 SUBJECTIVE: Note that the patient overnight became very agitated and belligerent and had to be placed on restraints. He also has urinary tract infection. At present, he has been transferred to the fifth floor and he is not on the monitor but his pulse is regular. Apart from being confused, the patient does not seem to be in any distress. A Anderson catheter has been inserted into the patient's bladder for urinary retention, which may be the cause of the patient's agitation. The patient has a past history of dementia, which is intermittent. Maybe this is a progression of the patient's dementia. OBJECTIVE: GENERAL: On examination, the patient is mildly obese, at present slightly confused and slightly agitated. VITAL SIGNS: He is afebrile with a temperature of 98.2 degrees Fahrenheit, pulse is 86 beats per minute, blood pressure 95/82, respirations are 18 per minute, O2 saturations are 95% on room air. HEAD: Atraumatic, normocephalic. EYES: Pupils are equal, round, regular, reactive to light. There is no conjunctival pallor. There is no scleral icterus. EARS, NOSE, THROAT: Negative. NECK: Supple. There is no JVD. Carotids are equal. There is no bruit. There is no goiter. There is no lymphadenopathy. Trachea central. LUNGS: Show diminished air entry, prolonged expiration. There is no rhonchi, rales or wheezing today. There are no rales of CHF. HEART: S1 and S2 are heard. There is no S3 gallop. There is no S4 gallop. S1 is of normal intensity. A systolic murmur left sternal border on the apex. There is no rub. ABDOMEN: Soft, nontender. There is no hepatosplenomegaly. Bowel sounds are well heard. EXTREMITIES: Femorals are diminished. There are no femoral bruits. Leg pulses are diminished. There is no pedal edema. There is no DVT or cellulitis. There is no calf tenderness. There is no cyanosis or clubbing. CENTRAL NERVOUS SYSTEM: The patient is conscious. He is disoriented at present but moves all 4 extremities. PSYCHIATRIC: The patient does appear to be slightly agitated and slightly belligerent. IMPRESSION: 1. Acute encephalopathy, most likely secondary to patient's urinary retention and also patient most likely has underlying dementia. 2. Paroxysmal atrial fibrillation at present remains in sinus rhythm post cardioversion. Continue beta renu. 3. Respiratory failure, acute on chronic. *------* acute exacerbation of chronic obstructive pulmonary disease, congestive heart failure and asthmatic bronchitis at present. All these are stable. The patient's chronic obstructive pulmonary disease is back to baseline. 4. Hypertension. In fact, blood pressure is low. 5. Ischemic cardiomyopathy with severely reduced left ventricular ejection fraction. 6. Coronary artery disease, history of old myocardial infarction, and history of stents. No recent anginal symptoms. 7. History of seizure disorder. None this admission. The patient's phenobarbital level *------* 8. History of cerebrovascular accident, fully recovered. 9. History of enlarged prostate. No symptoms on current medication. 10. The patient at present has urinary retention and is having a Anderson catheter placed. 11. Hyperlipidemia. 12. Urinary tract infection. 13. Renal insufficiency on admission. GFR is normal now. 14. Possible underlying dementia, which is worsening. RECOMMENDATION: 1. Continue beta renu. 2. Continue Cozaar. 3. Continue aspirin. 4. Continue atorvastatin. 5. Note that the plan is to put the patient in a half-way facility after discussion by the hospitalist attending patient with the patient's daughter. 6. The cardiac status is stable. We will sign off. Thank you for allowing me to participate in the care of this patient. TIME SPENT: Note, 30 minutes spent on this patient with more than 50% of the time spent on direct patient care, review of the patient's medications, and discussions with the patient's daughter and with the attending physician on the case. DICTATING PHYSICIAN: AYAKA THOMAS M.D. [id number] PHY#: [id number] ID: [id number] JOB#: [id number] ACCT: [id number] cc: >
[2016-04-08] MEDS ORDERED: RISPERIDONE 1 MG TABLET PO SCH (22:00)
[2016-04-08] MEDS: SENNOSIDES/DOCUSATE 8.6-50 MG 1 EACH TABLET PO SCH (22:46)
[2016-04-09 07:01] LABS: ANION GAP 12 (5-19); BLOOD UREA NITROGEN 41 mg/dL (7-20); CALCIUM 9.5 mg/dL (8.4-10.2); CARBON DIOXIDE 27 mmol/L (22-30); CHLORIDE 101 mmol/L (98-107); CREATININE RESULT 1.15 mg/dL (0.52-1.25); GLUCOSE 73 mg/dL (75-110); SODIUM 139.7 mmol/L (137-145)
[2016-04-09] MEDS: LEVALBUTEROL HCL NEB 0.63 MG/3 ML AMPUL NEB SCH ×3 (07:37→19:51)
[2016-04-09] MEDS: PHENOBARBITAL 64.8 MG TABLET PO SCH (09:14)
[2016-04-09] MEDS: METOPROLOL SUCCINATE 50 MG TAB.SR.24H PO SCH (09:14)
[2016-04-09] MEDS: ASPIRIN 325 MG TABLET PO SCH (09:14)
[2016-04-09] MEDS: CETIRIZINE 10 MG TABLET PO SCH (09:14)
[2016-04-09] MEDS: LOSARTAN POTASSIUM 25 MG TABLET PO SCH (09:15)
[2016-04-09] MEDS: ATORVASTATIN CALCIUM 40 MG TABLET PO SCH (09:16)
[2016-04-09] MEDS: FINASTERIDE 5 MG TABLET PO SCH (09:16)
[2016-04-09] MEDS: DOCUSATE SODIUM 100 MG CAPSULE PO SCH ×2 (09:16→18:34)
[2016-04-09] MEDS: DOXYCYCLINE HYCLATE 100 MG TABLET PO SCH (09:16)
[2016-04-09] MEDS: NICOTINE 14 MG/24 HR PATCH.TD24 TD SCH (09:17)
[2016-04-09] MEDS: TIOTROPIUM BROMIDE DPI 5 CAP/KIT (18 MCG/CAP) IH SCH (09:17)
[2016-04-09] MEDS: FLUTICASONE NASAL SPRAY 50 MCG/SPRY 120 SPRAY/16 GM NASL SCH (09:18)
[2016-04-09] MEDS: ENOXAPARIN SODIUM INJ 40 MG/0.4 ML DISP.SYRIN SUBCUT SCH (09:22)
[2016-04-09] MEDS ORDERED: FUROSEMIDE 20 MG TABLET PO SCH (10:00)
[2016-04-09] MEDS ORDERED: PREDNISONE 10 MG TABLET PO SCH (10:00)
[2016-04-09] MEDS ORDERED: RISPERIDONE 0.25 MG TABLET PO SCH (10:00)
--- NOTE | 2016-04-09 12:48 | PDOC TRANSFER SUMMARY ---
General - Admit/Disc Date/PCP Admission Date/Primary Care Provider: 03/28/16 04:39 DARLEEN Jamison SMILEY, Discharge Date: 04/09/16 - Discharge Diagnosis (1) Sepsis Is this a current diagnosis for this admission?: Yes (2) Acute urinary retention Is this a current diagnosis for this admission?: YesSummary: Patient will need to go to rehabilitation with Anderson in place and should be removed by urologist. (3) Acute hypoxemic respiratory failure Is this a current diagnosis for this admission?: Yes (4) Acute encephalopathy Is this a current diagnosis for this admission?: Yes (5) COPD exacerbation Is this a current diagnosis for this admission?: Yes (6) Acute renal failure Is this a current diagnosis for this admission?: Yes (7) Hypernatremia Is this a current diagnosis for this admission?: Yes (8) Rhabdomyolysis Is this a current diagnosis for this admission?: Yes (9) UTI (urinary tract infection) Is this a current diagnosis for this admission?: Yes (10) Tobacco abuse Is this a current diagnosis for this admission?: Yes (11) Obesity (BMI 30.0-34.9) Is this a current diagnosis for this admission?: Yes (12) Seizure disorder Is this a current diagnosis for this admission?: Yes (13) Chronic combined systolic and diastolic CHF (congestive heart failure) Is this a current diagnosis for this admission?: Yes (14) Atrial fibrillation with RVR Is this a current diagnosis for this admission?: Yes - Additional Information Resuscitation Status: Do Not Resuscitate Discharge Diet: Cardiac, Other (Comments) - mechanical ground, thin liquids Discharge Activity: Activity As Tolerated, Balance Activity w/Rest, Weigh Daily Home Medications: Albuterol Sulfate [Ventolin Hfa] 1 - 2 puff IH Q4 PRN 03/28/16 Atorvastatin Calcium 40 mg PO DAILY 03/28/16 Cetirizine HCl [Zyrtec] 10 mg PO DAILY 03/28/16 Finasteride 5 mg PO DAILY 03/28/16 Tamsulosin HCl [Flomax 0.4 mg Cap.sr] 0.4 mg PO DAILY 03/28/16 Umeclidinium [place] [Incruse Ellipta] 62.5 mcg IH 03/28/16 Acetaminophen [Tylenol 325 mg Tablet] 650 mg PO Q4HP PRN tablet 04/07/16 Aspirin [Aspirin 325 mg Tablet] 325 mg PO DAILY tablet 04/07/16 Bisacodyl [Dulcolax 10 mg Supp.rect] 10 mg SC DAILYP PRN supp.rect 04/07/16 Docusate Sodium [Colace 100 mg Capsule] 100 mg PO BID capsule 04/07/16 Enoxaparin Sodium [Lovenox Inj 40 mg/0.4 ml Disp.syrin] 40 mg SUBCUT QAM disp.syrin 04/07/16 Fluticasone Propionate [Flonase Nasal [place] 50 Mcg/[place] 16 gm] 2 spray NASL DAILY spray.pump 04/07/16 Metoprolol Succinate [Toprol Xl 50 mg Tab.sr] 50 mg PO DAILY tab.sr.24h Phenobarbital [Phenobarbital 64.8 mg Tablet] 2 tab PO DAILY #60 tablet 04/07/16 Sennosides/Docusate 8.6-50 mg [Senna Plus Tablet] 2 each PO QHS tablet Tiotropium [place] [Spiriva Handihaler 5 Cap/Kit (18 Mcg/Cap)] 1 cap IH DAILY kit 04/07/16 Doxycycline Hyclate [Vibramycin 100 mg Tablet] 100 mg PO Q12 #2 tablet 04/09/16 Furosemide [Lasix 20 mg Tablet] 20 mg PO DAILY tablet 04/09/16 Losartan Potassium [Cozaar 25 mg Tablet] 12.5 mg PO DAILY tablet 04/09/16 Risperidone [Risperdal 0.25 mg Tablet] 0.25 mg PO DAILY #30 tablet 04/09/16 Risperidone [Risperdal 1 mg Tablet] 0.5 mg PO QHS #30 tablet 04/09/16 History of Present Illness Admission Date/PCP: 03/28/16 04:39 DARLEEN REIS, History of Present Illness: Please see prior discharge summary for events this is an addendum to that summary. Hospital Course Hospital Course: Patient remained in-house for 1 day and was sent had acute urinary retention which was relieved with Anderson placement. Patient was started on low-dose Risperdal in the morning and 0.5 mg by mouth daily at bedtime. This improved his overall encephalopathy. Patient doing well and stable for discharge to rehabilitation. Physical Exam Vital Signs: Temp Pulse Resp BP Pulse Ox 98.7 F 80 15 109/52 L 95 04/08/16 23:28 04/08/16 23:28 04/08/16 23:28 04/08/16 23:28 04/09/16 06:02 Intake & Output 04/08/16 04/09/16 04/10/16 06:59 06:59 06:59 Intake Total 651 325 Output Total 900 2500 Balance -249 -2175 Weight 88.9 kg 88.6 kg Exam: GENERAL: No acute distress, awake alert and oriented to self alone, frail, elderly HEENT: Conjunctiva clear, nonicteric, moist mucous membranes, no JVD, midline trachea RESPIRATORY: Clear to auscultation bilaterally, good air movement CARDIAC: Regular rate and rhythm, no murmurs/gallops/rubs ABDOMEN: Soft, nontender to palpation, nondistended, active bowel sounds, no rebound, no rigidity, no guarding EXTREMETIES: No edema, cyanosis, clubbing NEUROLOGIC: Alert, oriented to person only, CN's grossly intact, no focal deficits SKIN: No rash, wounds PSYCH: Pleasant mood and affect Results Laboratory Results: 04/05/16 06:12 04/09/16 05:41 04/09/16 05:41 Sodium 139.7 Potassium 5.0 Chloride 101 Carbon Dioxide 27 Anion Gap 12 BUN 41 H Creatinine 1.15 Est GFR ( Amer) > 60 Est GFR (Non-Af Amer) > 60 Glucose 73 L Calcium 9.5 03/29/16 03/30/16 04/01/16 06:40 09:35 06:41 Creatine Kinase 644 H NT-Pro-B Natriuret Pep 3720 H 7690 H Impressions: Cervical Spine CT 03/27/16 22:16 IMPRESSION: CHRONIC DEGENERATIVE CHANGES. NO ACUTE FINDINGS. Head CT 03/27/16 22:16 IMPRESSION: NO ACUTE INTRACRANIAL PROCESS. NO SIGNIFICANT CHANGE FROM PRIOR STUDY. Hip X-Ray 03/27/16 22:25 IMPRESSION: NO ACUTE OSSEOUS ABNORMALITY. Chest CT 03/28/16 01:46 IMPRESSION: No masses. Extensive coronary artery calcification. Chest X-Ray 04/03/16 06:00 IMPRESSION: NO ACUTE CARDIOPULMONARY PROCESS. NO SIGNIFICANT CHANGE FROM PRIOR STUDY. KUB X-Ray 04/06/16 00:00 IMPRESSION: Large amount of stool throughout the colon Transfer Plan - Disposition Transfer Plan: Patient will need to be on a cardiac diet with mechanical cut meats and thin liquids. Anderson will need to be remain in place and patient will need follow-up with Dr. Urena or his successor for removal. - Time Spent with Patient Time spent with patient: Less than 30 Minutes Qualifiers PATEINT BEING DISCHARGED WITH ANY OF THE FOLLOWING DIAGNOSIS?: Heart Failure HF Pt being discharged on ACEI for LVEF less than 40%?: No Reason(s) for not prescribing ACEI:: Medical Contraindication - Hypotension HF Pt being discharged on ARBS for LVEF less than 40%?: Yes HF Pt with Afib discharged with Warfarin?: No Reason(s) for not prescribing Warfarin:: Not indicated - Patient is a poor candidate for anticoagulation please see cardiology HF Pt discharged on evidence-based Beta Rocio?: Yes Plan Time Spent: Less than 30 Minutes
[2016-04-09 16:35] VITALS: BP 100/45
[2016-04-09] MEDS: TAMSULOSIN HCL 0.4 MG CAP.SR.24H PO SCH (18:34)
== END 2016-04-09 20:55 | DRG 871 ==
LOC: ER 21:55 → EH 03-28 04:39 → 5 03-28 10:35 → 3S 03-30 11:10 → 5 04-07 23:43
PROVIDERS: ADMIT Internal Medicine; ATTEND Internal Medicine
PROC: 5A2204Z Restoration of Cardiac Rhythm, Single (ICD-10-PCS; principal; 2016-03-31)
DX: A41.9 Sepsis, unspecified organism (principal); J96.01 Acute respiratory failure with hypoxia; G93.40 Encephalopathy, unspecified; I50.23 Acute on chronic systolic (congestive) heart failure; J44.1 Chronic obstructive pulmonary disease with (acute) exacerbation; N17.9 Acute kidney failure, unspecified; N39.0 Urinary tract infection, site not specified; E87.0 Hyperosmolality and hypernatremia; Z66 Do not resuscitate; I48.0 Paroxysmal atrial fibrillation; I25.10 Atherosclerotic heart disease of native coronary artery without angina pectoris; T79.6XXA Traumatic ischemia of muscle, initial encounter; W19.XXXA Unspecified fall, initial encounter; G40.909 Epilepsy, unspecified, not intractable, without status epilepticus; Z60.2 Problems related to living alone; F17.210 Nicotine dependence, cigarettes, uncomplicated; B96.89 Other specified bacterial agents as the cause of diseases classified elsewhere; Z95.5 Presence of coronary angioplasty implant and graft; Z91.19 Patient's noncompliance with other medical treatment and regimen; Z79.82 Long term (current) use of aspirin; I25.2 Old myocardial infarction
CPT/HCPCS: 00410; 36415; 70450; 71010; 71250; 72125; 73522; 74000; 80048; 80053; 80184; 81001; 82550; 82553; 82565; 83735; 83880; 84439; 84443; 84481; 84484; 85025; 85027; 85610; 85730; 87040; 87086; 87088; 87186; 93005; 93010; 99285; G8978-GP; G8979-GP; G8996-GN; G8997-GN; G8998-GN; J0282; J0696; J1160; J1644; J1650; J1940; J2060; J2250; J2405; J2543; J2704; J2920; J2930; J3490; J7030; J7060; J7512; J7614; J7620

== ENCOUNTER 2016-04-13 04:44 | Emergency (ER) | payer MEDICARE ==
--- NOTE | 2016-04-13 06:05 | ER Document Report ---
[id number] PROBLEMS Notes: The patient is a 75-year-old male, past medical history BPH, CVA, presents from [facility] after he pulled out his Anderson with the balloon intact. He had some penile bleeding, which has resolved. He denies any pain, fevers, flank pain, testicular pain, nausea or vomiting. TRAVEL OUTSIDE OF THE [place] IN LAST 30 DAYS: No - Related Data Allergies/Adverse Reactions: No Known Allergies Allergy (Verified 04/13/16 06:02) Past Medical History - Social History Smoking Status: Current Every Day Smoker Family History: Hypertension - Past Medical History Cardiac Medical History: Reports: Hx Heart Attack Pulmonary Medical History: Denies: Hx Tuberculosis Neurological Medical History: Reports: Hx Seizures Psychiatric Medical History: Denies: Hx Bipolar Disorder, Hx Dementia, Hx Depression Past Surgical History: Reports: Hx Abdominal Surgery - perforated hernia, Hx Cardiac Surgery - STENT - Immunizations Hx Diphtheria, Pertussis, Tetanus Vaccination: Yes Hx Pneumococcal Vaccination: 01/02/11 Review of Systems - Review of Systems Notes: REVIEW OF SYSTEMS: CONSTITUTIONAL: -fevers, -chills EENT: -eye pain, -difficulty swallowing, -nasal congestion CARDIOVASCULAR:-chest pain, -syncope. RESPIRATORY: -cough, -SOB GASTROINTESTINAL: -abdominal pain, - nausea, -vomiting, -diarrhea GENITOURINARY: -dysuria, -hematuria, +penile bleeding MUSCULOSKELETAL: -back pain, -neck pain SKIN: -rash or skin lesions. HEMATOLOGIC: -easy bruising or bleeding. LYMPHATIC: -swollen, enlarged glands. NEUROLOGICAL: -altered mental status or loss of consciousness, -headache, - neurologic symptoms PSYCHIATRIC: -anxiety, -depression. ALL OTHER SYSTEMS REVIEWED AND NEGATIVE. Physical Exam - Vital signs Vitals: Temp Resp BP Pulse Ox 98.1 F 15 116/66 96 04/13/16 04:49 04/13/16 04:49 04/13/16 04:49 04/13/16 04:49 - Notes Notes: PHYSICAL EXAMINATION: GENERAL: Well-appearing, well-nourished and in no acute distress. HEAD: Atraumatic, normocephalic. EYES: Pupils equal round and reactive to light, extraocular movements intact, sclera anicteric, conjunctiva are normal. ENT: nares patent, oropharynx clear without exudates. Moist mucous membranes. NECK: Normal range of motion, supple without lymphadenopathy LUNGS: Breath sounds clear to auscultation bilaterally and equal. No wheezes rales or rhonchi. HEART: Regular rate and rhythm without murmurs ABDOMEN: Soft, nontender, normoactive bowel sounds. No guarding, no rebound. No masses appreciated. : No active bleeding from penis. No suprapubic tenderness. EXTREMITIES: Normal range of motion, no pitting or edema. No cyanosis. NEUROLOGICAL: Cranial nerves grossly intact. Normal speech, normal gait. Normal sensory, motor, and reflex exams. PSYCH: Normal mood, normal affect. SKIN: Warm, Dry, normal turgor, no rashes or lesions noted. Course - Re-evaluation Re-evalutation: Penile bleeding has resolved. No signs of UTI. Patient unable to urinate on his own in the emergency room. Will replace Anderson with follow-up at urology. Anderson attempted by RN. Unable to pass Anderson and bleeding restarted. Spoke to Dr. Gonzalez and he recommends placing an 18-gauge coud with Urojet and making sure the patient is relaxed. Will attempt. 04/13/16 08:00 Coude placed excessively. Small amount of initial blood and urine quickly resolved. Urine now yellow. No evidence of UTI with no fever, flank pain or suprapubic tenderness. Will DC back to the [facility]. - Vital Signs Vital signs: Temp Pulse Resp BP Pulse Ox 98.1 F 20 109/55 L 97 04/13/16 04:49 04/13/16 06:00 04/13/16 05:00 04/13/16 06:00 Discharge - Discharge Clinical Impression: Penile bleeding Dislodged Anderson catheter Qualifiers: Encounter type: initial encounter Qualified Code(s): T83.021A - Displacement of indwelling urethral catheter, initial encounter Condition: Good Disposition: SNF Additional Instructions: Your Anderson catheter was replaced today. Anderson Catheter Care Tube Position: Keep the catheter connected to the drainage tubing at all times. Avoid pulling on the catheter. Keep the drainage tube taped to the mid- thigh, on top of your leg (not underneath it). Be sure there are no kinks or loops in the tube. Keep the drainage bag below the bladder. When in bed, the drainage bag should hang below the abdomen but should not lie on the floor. The drainage bag has hooks at the top so it can be hung on a chair or bed. Daily Cleaning: Wash your hands with soap and water before and after caring for your catheter. Twice a day, clean yourself where the catheter goes into the urethra. Use a warm, soapy wash cloth to clean around the urethral opening and the first few inches of the catheter. Females should wash from front to back to decrease the risk of infection from fecal material. After washing with soap, rinse the area with water. Do not put powder around the catheter. Apply ointment only if instructed by your doctor or nurse. Follow up if you develop fever or chills, flank or abdominal pain, blood in the urine, or if urine is not draining into the catheter. Referrals: SHALINI REIS MD [Primary Care Provider] - Follow up as needed
[2016-04-13] MEDS ORDERED: LIDOCAINE 2% URO-JET 5 ML KIT MM ONE (07:25)
[2016-04-13 08:03] VITALS: BP 116/76
== END 2016-04-13 08:48 ==
LOC: ER 04:44
DX: T83.021A Displacement of indwelling urethral catheter, initial encounter (principal); N48.89 Other specified disorders of penis; Y73.8 Miscellaneous gastroenterology and urology devices associated with adverse incidents, not elsewhere classified; Y92.129 Unspecified place in nursing home as the place of occurrence of the external cause; N40.0 Benign prostatic hyperplasia without lower urinary tract symptoms; Z86.73 Personal history of transient ischemic attack (TIA), and cerebral infarction without residual deficits; I25.2 Old myocardial infarction
CPT/HCPCS: 99284; 51702; A9270; J3490

== ENCOUNTER 2016-08-04 19:46 | Emergency (ER) | payer MEDICARE ==
--- NOTE | 2016-08-04 20:13 | ER Document Report ---
ED GI/ - General Stated Complaint: URINARY SYMPTOMS Time seen by provider: 20:10 Notes: Patient is a 76-year-old [id number] for chief complaint of blood in the urine. Patient states he has had urine with this appearance for a couple months, but he just changed facilities a few days ago. Patient denies abdominal pain, flank pain, nausea, vomiting, fever/ chills. Patient has a history of BPH, sees urology, had his Anderson catheter replaced 2 weeks ago. He denies any fall or injuries. Daughters at bedside also confirm history. Patient is on Eliquis for atrial fibrillation, is a history of CVA, seizures, [place], tobacco abuse. TRAVEL OUTSIDE OF THE [place] IN LAST 30 DAYS: No - Related Data Allergies/Adverse Reactions: No Known Allergies Allergy (Verified 04/13/16 06:02) Past Medical History - General Information source: Patient, Relative - Social History Smoking Status: Never Smoker Frequency of alcohol use: None Lives with: [facility] Family History: Hypertension - Past Medical History Cardiac Medical History: Reports: Hx Heart Attack Pulmonary Medical History: Denies: Hx Tuberculosis Neurological Medical History: Reports: Hx Seizures Psychiatric Medical History: Denies: Hx Bipolar Disorder, Hx Dementia, Hx Depression Past Surgical History: Reports: Hx Abdominal Surgery - perforated hernia, Hx Cardiac Surgery - STENT - Immunizations Hx Diphtheria, Pertussis, Tetanus Vaccination: Yes Hx Pneumococcal Vaccination: 01/02/11 Review of Systems - Review of Systems Constitutional: No symptoms reported EENT: No symptoms reported Cardiovascular: No symptoms reported Respiratory: No symptoms reported Gastrointestinal: No symptoms reported Genitourinary: See HPI Male Genitourinary: See HPI Musculoskeletal: No symptoms reported Skin: No symptoms reported Hematologic/Lymphatic: No symptoms reported Neurological/Psychological: No symptoms reported Physical Exam - Vital signs Vitals: Resp Pulse Ox 14 94 08/04/16 20:01 08/04/16 20:01 Interpretation: Normal - General General appearance: Appears well, Alert In distress: None - HEENT Head: Normocephalic, Atraumatic Eyes: Normal Extraocular movements intact: Yes Eyelashes: Normal Pupils: PERRL Mouth/Lips: Normal Mucous membranes: Normal Pharynx: Normal Neck: Normal - Respiratory Respiratory status: No respiratory distress Chest status: Nontender Breath sounds: Normal. No: Decreased air movement, Wheezing Chest palpation: Normal - Cardiovascular Rhythm: Regular. No: Tachycardia Heart sounds: Normal auscultation, S1 appreciated, S2 appreciated Murmur: No - Abdominal Inspection: Normal Distension: No distension Bowel sounds: Normal Tenderness: Nontender Organomegaly: No organomegaly - Genitourinary Inspection: Normal - [address], no erythema, swelling, or signs of injury, nontender, no abnormal heat, no other abnormalities noted to the genitalia. No: Blood at meatus Tenderness: Nontender Scrotum: Normal. No: Swelling, Redness, Hot to touch - Back Back: Normal, Nontender. No: Tender - Extremities General upper extremity: Normal inspection, Nontender, Normal color, Normal ROM , Normal temperature General lower extremity: Normal inspection, Nontender, Normal color, Normal ROM , Normal temperature, Normal weight bearing. 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 Patient denying any dizziness or lightheadedness, denying any other symptoms. Difficult to evaluate the urine bag, tube and back are both stained with blood and sediment is present. Patient reports he had this replaced 2 weeks ago and is not due for another few weeks for a change in Anderson, the tubing and bag were changed instead, after this I could easily see normal yellow urine and no signs of blood. No evidence of trauma. Patient with soft unremarkable abdomen, not complaining of any symptoms. Catheterized urine sample obtained, used new tubing to do so, this was found to have nitrates, white blood cells, minimal blood. Culture place, patient placed on antibiotics after discussion with patient and family, discussed follow-up with urology, discussed return precautions, patient and family state understanding and agreement. - Vital Signs Vital signs: Temp Pulse Resp BP Pulse Ox 98.0 F 23 H 121/60 94 08/05/16 01:45 08/05/16 01:32 08/05/16 01:32 08/04/16 22:29 - Laboratory Laboratory results interpreted by me: 08/04/16 20:41 Urine Nitrite POSITIVE H Urine Urobilinogen 4.0 H Ur Leukocyte Esterase MODERATE H Discharge - Discharge Clinical Impression: Anderson catheter problem Qualifiers: Encounter type: initial encounter Qualified Code(s): T83.9XXA - Unspecified complication of genitourinary prosthetic device, implant and graft, initial encounter Condition: Stable Disposition: HOME, SELF-CARE Additional Instructions: The tubing and bag was stained a red color, the tubing and bag have been replaced, and the department expected urine color was noted, urinalysis is unremarkable except for signs of developing infection, no other abnormalities noted. We have a urine culture growing in our lab, take the Keflex antibiotic as directed, follow up with primary care/urology, return for any concerning symptoms such as abdominal pain, fever, etc. Prescriptions: Cephalexin Monohydrate [Keflex 500 mg Capsule] 500 mg PO BID #14 capsule
[2016-08-04 21:24] LABS: APPEARANCE,URINE SLIGHTLY-CLOUDY; BILIRUBIN,URINE NEGATIVE (NEGATIVE); GLUCOSE, URINE NEGATIVE (NEGATIVE); KETONES,URINE NEGATIVE (NEGATIVE); LEUKOCYTE ESTERASE,URINE MODERATE (NEGATIVE); NITRITE,URINE POSITIVE (NEGATIVE); PROTEIN,URINE NEGATIVE (NEGATIVE); URINE SPECIFIC GRAVITY 1.015
[2016-08-04] MEDS ORDERED: CEPHALEXIN 500 MG CAPSULE PO ONE (21:30)
[2016-08-05 02:02] VITALS: BP 121/60
== END 2016-08-05 01:45 | disposition home or self-care (01) ==
LOC: ER 19:46
DX: T83.9XXA Unspecified complication of genitourinary prosthetic device, implant and graft, initial encounter (principal); Y84.6 Urinary catheterization as the cause of abnormal reaction of the patient, or of later complication, without mention of misadventure at the time of the procedure; N40.0 Benign prostatic hyperplasia without lower urinary tract symptoms; I25.2 Old myocardial infarction; I48.91 Unspecified atrial fibrillation; Z79.01 Long term (current) use of anticoagulants; Z86.73 Personal history of transient ischemic attack (TIA), and cerebral infarction without residual deficits
CPT/HCPCS: 99284; 87086; 87088; 81001; 87186; A9270

== ENCOUNTER 2016-08-20 21:50 | Emergency (ER) | payer MEDICARE ==
[2016-08-20] MEDS ORDERED: FUROSEMIDE 20 MG TABLET PO ONE (22:32)
--- NOTE | 2016-08-20 22:37 | ER Document Report ---
ED General - General Chief Complaint: Problem with Urinary Catheter Stated Complaint: CATHETER ISSUE Time Seen by Provider: 08/20/16 22:03 Notes: Patient is a 76-year-old male who presents with complaints of pain along the Pugh catheter. [facility] got [facility] on and he was complaining of pain. Since then patient has not complained of any pain and since arrival to the ER his denied any pain. Family has no other complaints other than the daughters noticed that he has had a little bit increased swelling in his lower extremities. No difficulty breathing. No fevers. Patient himself otherwise says he feels well and has no further complaints. Patient does take furosemide 20 mg a day. Patient is currently on nitrofurantoin which is making his urine orange color. TRAVEL OUTSIDE OF THE [place] IN LAST 30 DAYS: No - Related Data Allergies/Adverse Reactions: No Known Allergies Allergy (Verified 04/13/16 06:02) Past Medical History - Social History Smoking Status: Former Smoker Frequency of alcohol use: None Drug Abuse: None Family History: Hypertension Patient has suicidal ideation: No Patient has homicidal ideation: No - Past Medical History Cardiac Medical History: Reports: Hx Heart Attack Pulmonary Medical History: Denies: Hx Tuberculosis Neurological Medical History: Reports: Hx Seizures Renal/ Medical History: Denies: Hx Peritoneal Dialysis Psychiatric Medical History: Denies: Hx Bipolar Disorder, Hx Dementia, Hx Depression Past Surgical History: Reports: Hx Abdominal Surgery - perforated hernia, Hx Cardiac Surgery - STENT - Immunizations Hx Diphtheria, Pertussis, Tetanus Vaccination: Yes Hx Pneumococcal Vaccination: 01/02/11 Review of Systems - Review of Systems Notes: My Normal Review Basic REVIEW OF SYSTEMS: CONSTITUTIONAL : Denies fever, chills, or sweats. Denies recent illness. RESPIRATORY: Denies cough, cold, or chest congestion. Denies shortness of breath, difficulty breathing, or wheezing. GASTROINTESTINAL: Denies abdominal pain. Denies nausea, vomiting, or diarrhea. Denies constipation. Last BM: GENITOURINARY: previous pugh pain now resolved MUSCULOSKELETAL: lower extremity edema SKIN: Denies rash or skin lesions. ALL OTHER SYSTEMS REVIEWED AND NEGATIVE. Physical Exam - Vital signs Vitals: Temp Pulse Resp BP Pulse Ox 97.6 F 68 22 H 106/51 L 93 08/20/16 22:24 08/20/16 22:24 08/20/16 22:24 08/20/16 22:24 08/20/16 22:24 - Notes Notes: General Appearance: Well nourished, alert, cooperative, no acute distress, no obvious discomfort. well appearing Vitals: reviewed, See vital signs table. Head: no swelling or tenderness to the head Eyes: PERRL, EOMI, Conjuctiva clear Lungs: No wheezing, No rales, No rhonci, No accessory muscle use, good air exchange bilaterally. Heart: Normal rate, Regular rythm, No murmur, no rub Abdomen: Normal BS, soft, No rigidity, No abdominal tenderness, No guarding, no rebound, no abdominal masses, no organomegaly bedside ultrasound shows pugh balloon in bladder. Genital: no blood around urethral meatus Extremities: strength 5/5 in all extremities, good pulses in all extremities, no swelling or tenderness in the extremities, 2+ edema bilateral lower extremity. Skin: warm, dry, appropriate color, no rash Neuro: speech clear, oriented x 3, normal affect, responds appropriately to questions. Course - Vital Signs Vital signs: Temp Pulse Resp BP Pulse Ox 97.6 F 68 22 H 106/51 L 93 08/20/16 22:44 08/20/16 22:24 08/20/16 22:44 08/20/16 22:24 08/20/16 22:24 - Transfer of Care Notes: 08/20/16 22:53 08/20/16 22:54 Patient looks and feels well. The Pugh catheter appears to be in appropriate place. Urine in the Pugh bag is orange in color which is to be expected since he is on nitrofurantoin. He does have a little bit of edema in the lower extremities. There is no rales in his lungs are clear to auscultation. I will increase his Lasix from 20 to 40 mg a day. I wrote strict instructions to have his doctor reevaluate him in 5 days to see if he wants to continue it at 40 mg or to bring it back down to 20 mg. I wrote a prescription for 7 days. I encouraged him to return to the ER if he has difficulty breathing, any difficulty with the Pugh catheter, or have any further concerns. Patient and his family agrees with the plan and [facility] will [facility]. Dictation of this chart was performed using voice recognition software; therefore, there may be some unintended grammatical errors. Discharge - Discharge Clinical Impression: Pugh catheter in place, Lower extremity edema Condition: Good Disposition: HOME, SELF-CARE Additional Instructions: Please increase Furosemide to 40mg daily for the next 7 days. Please be reevaluated by your doctor in 5 days to determine if he/she wants Mr Hui to stay on the increased dose of Furosemide. Please return tot eh ER immediately if the catheter is not draining urine appropriately, he has fevers, difficulty breathing, or increased leg swelling. Prescriptions: Furosemide [Lasix 20 mg Tablet] 40 mg PO QAM #14 tablet
[2016-08-20 23:18] VITALS: BP 102/52
== END 2016-08-20 23:17 | disposition home or self-care (01) ==
LOC: ER 21:50
DX: T83.9XXA Unspecified complication of genitourinary prosthetic device, implant and graft, initial encounter (principal); R60.0 Localized edema; Z87.891 Personal history of nicotine dependence
CPT/HCPCS: 99284; A9270

== ENCOUNTER 2016-08-23 19:25 | Emergency (ER) | payer MEDICARE ==
[2016-08-23] MEDS ORDERED: GLUCAGON,HUMAN RECOMB 1 MG INJ SUBCUT ONE (19:37)
[2016-08-23 19:44] LABS: HEMATOCRIT 15.6 % (37.9-51.0); HGB HCT DIFFERENCE -2.4; MEAN CORPUSCULAR HEMOGLOBIN 20.4 pg (27.0-33.4); MEAN CORPUSCULAR HGB CONC 28.5 g/dL (32.0-36.0); MEAN CORPUSCULAR VOLUME 72 fl (80-97); RED BLOOD COUNT 2.18 10^6/uL (4.35-5.55); RED CELL DISTRIBUTION WIDTH 22.4 % (11.5-14.0); WHITE BLOOD COUNT 7.2 10^3/uL (4.0-10.5)
[2016-08-23] MEDS ORDERED: NORMAL SALINE 250 ML IV PRN ×4 (19:53→23:48)
--- NOTE | 2016-08-23 19:53 | ER Document Report ---
ED Blood Pressure Problem - General Mode of Arrival: Medic Information source: Patient, Emergency Med Personnel TRAVEL OUTSIDE OF THE [place] IN LAST 30 DAYS: No - HPI Patient complains to provider of: Low blood pressure Associated symptoms: Other - See above <YAEL TIRADO - Last Filed: 08/23/16 22:20> <TOÑO MCKEON - Last Filed: 08/24/16 00:42> - General Chief Complaint: Low Blood Pressure Stated Complaint: low blood pressure Time Seen by Provider: 08/23/16 19:35 Notes: Patient is a 76 year old male, with a past medical history of cardiac stent placement and CVA, who presents to the emergency department via EMS for low blood pressure. Per EMS patient was originally sent to ED for epigastric abdominal pain, EMS noted that patient was pale on arrival and en route patient' s heart rate was in the 40s and his pressure was in the mid 80s systolic. Patient has a hernia in his upper abdomen that is not suitable to surgery and has been reportedly bothering him per staff. Patient was sent over from the [facility]. Patient reports he is having some abdominal pain. Per staff patient has not received his nighttime medication. Patient currently takes Asa and Eloquis daily. (YAEL TIRADO) - Related Data Allergies/Adverse Reactions: No Known Allergies Allergy (Verified 08/23/16 21:34) Past Medical History - General Information source: Patient, Emergency Med Personnel - Social History Smoking Status: Unknown if Ever Smoked Family History: Reviewed & Not Pertinent, Hypertension - Past Medical History Cardiac Medical History: Reports: Hx Congestive Heart Failure, Hx Heart Attack Neurological Medical History: Reports: Hx Seizures GI Medical History: Reports: Hx Hiatal Hernia Past Surgical History: Reports: Hx Abdominal Surgery - perforated hernia, Hx Cardiac Surgery - STENT - Immunizations Hx Diphtheria, Pertussis, Tetanus Vaccination: Yes Hx Pneumococcal Vaccination: 01/02/11 <YAEL TIRADO - Last Filed: 08/23/16 22:20> Review of Systems - Review of Systems Constitutional: No symptoms reported EENT: No symptoms reported Cardiovascular: See HPI, Other - low HR Respiratory: No symptoms reported Gastrointestinal: See HPI, Abdominal pain Genitourinary: No symptoms reported Male Genitourinary: No symptoms reported Musculoskeletal: No symptoms reported Skin: No symptoms reported Hematologic/Lymphatic: No symptoms reported Neurological/Psychological: No symptoms reported -: Yes All other systems reviewed and negative <YAEL TIRADO - Last Filed: 08/23/16 22:20> Physical Exam - Vital signs Interpretation: Hypotensive, Bradycardic - General In distress: Severe - HEENT Head: Normocephalic, Atraumatic Conjunctiva: Other - pale Mouth/Lips: Normal - pale tongue - Respiratory Respiratory status: No respiratory distress Chest status: Nontender Breath sounds: Normal Chest palpation: Normal - Cardiovascular Rhythm: Bradycardia Heart sounds: Normal auscultation Murmur: No Normal capillary refill: No - >5second capillary refill - Abdominal Inspection: Normal Distension: No distension Bowel sounds: Normal Tenderness: Tender - epigastric tenderness to palpation Organomegaly: No organomegaly - Neurological Neuro grossly intact: Yes Cognition: Normal Orientation: AAOx4 Speech: Normal - Psychological Associated symptoms: Normal affect, Normal mood - Skin Skin Color: Pale <YAEL TIRADO - Last Filed: 08/23/16 22:20> Course - Laboratory Result Diagrams: 08/23/16 19:30 08/23/16 19:30 - Consults [facility] Time consulted: 21:35 <YAEL TIRADO - Last Filed: 08/23/16 22:20> - Laboratory Result Diagrams: 08/23/16 19:30 08/23/16 19:30 <TOÑO MCKEON - Last Filed: 08/24/16 00:42> - Re-evaluation Re-evalutation: 08/23/16 21:32 It is a 76-year-old male who presents with bradycardia, hypotension, severe anemia and epigastric pain. Patient was brought in transcutaneously paced. He had also been given dopamine which did not change anything with his heart rate but did increase his pressure. Patient has a negative occult stool. There is no evidence for david blood on his CT although he does have right upper quadrant stranding. Patient has been discussed with the transfer center at [facility], the ICU and CCU physicians. Patient will be accepted to the CCU. He has also been discussed at length with his family who reiterated that the patient is to be DNR/DNI but they would like him to have procedures if he needs it at this time. The patient has responded well to blood transfusion and is more awake and alert at this time. His color is returning and his capillary refill is improved. 08/23/16 23:45 Patient is still transcutaneously paced. He is responsive. He is maintaining his blood pressure at this time. He has been given a total of 1.5 of atropine. Patient in fair condition but due to lack of EP physician at this hospital, his transfer is necessary at this time. Patient and family understand and agree with plan. (TOÑO MCKEON) - Vital Signs Vital signs: Temp Pulse Resp BP Pulse Ox 97.5 F 57 L 22 H 116/55 L 95 08/23/16 23:40 08/23/16 23:40 08/23/16 23:40 08/23/16 23:40 08/23/16 23:40 - Laboratory Laboratory results interpreted by me: 08/23/16 08/23/16 08/23/16 19:30 19:30 19:30 RBC 2.18 L Hgb 4.4 L* Hct 15.6 L MCV 72 L MCH 20.4 L MCHC 28.5 L RDW 22.4 H Seg Neuts % (Manual) 83 H Lymphocytes % (Manual) 10 L PT 18.1 H VBG pH VBG HCO3 Sodium 133.8 L Potassium 5.3 H Carbon Dioxide 16 L BUN 55 H Creatinine 1.72 H Est GFR ( Amer) 47 L Est GFR (Non-Af Amer) 39 L Glucose 122 H Lactic Acid AST 81 H ALT 89 H Alkaline Phosphatase 132 H Creatine Kinase 47 L Total Protein 6.2 L Urine Protein Urine Nitrite Urine Urobilinogen Ur Leukocyte Esterase Crossmatch 08/23/16 08/23/16 08/23/16 20:50 20:50 20:50 RBC Hgb Hct MCV MCH MCHC RDW Seg Neuts % (Manual) Lymphocytes % (Manual) PT VBG pH 7.18 L* VBG HCO3 17.5 L Sodium Potassium Carbon Dioxide BUN Creatinine Est GFR ( Amer) Est GFR (Non-Af Amer) Glucose Lactic Acid 4.6 H AST ALT Alkaline Phosphatase Creatine Kinase Total Protein Urine Protein Urine Nitrite Urine Urobilinogen Ur Leukocyte Esterase Crossmatch See Detail 08/23/16 22:00 RBC Hgb Hct MCV MCH MCHC RDW Seg Neuts % (Manual) Lymphocytes % (Manual) PT VBG pH VBG HCO3 Sodium Potassium Carbon Dioxide BUN Creatinine Est GFR ( Amer) Est GFR (Non-Af Amer) Glucose Lactic Acid AST ALT Alkaline Phosphatase Creatine Kinase Total Protein Urine Protein 100 H Urine Nitrite POSITIVE H Urine Urobilinogen 2.0 H Ur Leukocyte Esterase SMALL H Crossmatch - Consults [facility] Reason for consultation: 08/23/[id number] Contacted Dr. Phillips in ICU [id number] Dr. Ling in CICU will accept transfer (YAEL TIRADO) Critical Care Note - Critical Care Note Total time excluding time spent on procedures (mins): 180 - Evaluation and management of symptomatic bradycardia, hypotension, severe symptomatic anemia, coordination of transfer, counseling of patient and family <TOÑO MCKEON - Last Filed: 08/24/16 00:42> Discharge <YAEL TIRADO - Last Filed: 08/23/16 22:20> <TOÑO MCKEON - Last Filed: 08/24/16 00:42> - Discharge Clinical Impression: Anemia requiring transfusions, Symptomatic bradycardia, ECG showing electrical capture after temporary pacing Acute renal failure Qualifiers: Acute renal failure type: unspecified Qualified Code(s): N17.9 - Acute kidney failure, unspecified Condition: Fair Disposition: [facility] Scribe Attestation: 08/24/16 00:42 I personally performed the services described in the documentation, reviewed and edited the documentation which was dictated to the scribe in my presence, and it accurately records my words and actions. (TOÑO MCKEON) Scribe Documentation - Scribe Written by Austiniblena:: andrey Chávez, 08/23/162221 acting as scribe for :: Clyde <YAEL TIRADO - Last Filed: 08/23/16 22:20>
[2016-08-23 19:58] LABS: ALANINE AMINOTRANSFERASE 89 U/L (21-72); ALBUMIN 3.6 g/dL (3.5-5.0); ALKALINE PHOSPHATASE 132 U/L (38-126); ANION GAP 16 (5-19); ASPARTATE AMINO TRANSFERASE 81 U/L (17-59); BILIRUBIN,DIRECT 0.1 mg/dL (0.0-0.4); BILIRUBIN,TOTAL 0.6 mg/dL (0.2-1.3); BLOOD UREA NITROGEN 55 mg/dL (7-20); CALCIUM 8.5 mg/dL (8.4-10.2); CARBON DIOXIDE 16 mmol/L (22-30); CHLORIDE 102 mmol/L (98-107); CREATINE KINASE 47 U/L (55-170); CREATININE RESULT 1.72 mg/dL (0.52-1.25); GLUCOSE 122 mg/dL (75-110); POTASSIUM 5.3 mmol/L (3.6-5.0); SODIUM 133.8 mmol/L (137-145); TOTAL PROTEIN 6.2 g/dL (6.3-8.2)
[2016-08-23 20:10] LABS: CREATINE KINASE MB 1.31 ng/mL (<4.55); TROPONIN I 0.028 ng/mL
[2016-08-23 20:42] LABS: ANISOCYTOSIS 2+; BASOPHILS % (MANUAL) 0 % (0-2); EOSINOPHILS % (MANUAL) 0 % (0-6); HELMET CELLS SLIGHT; HYPOCHROMASIA 3+; LYMPHOCYTES % (MANUAL) 10 % (13-45); MICROCYTOSIS 2+; NUCLEATED RED BLOOD CELLS 4 /100 WBC (0); POIKILOCYTOSIS SLIGHT; POLYCHROMASIA SLIGHT; TEAR DROP CELLS SLIGHT; TOTAL CELLS COUNTED 100
[2016-08-23 20:43] LABS: ROULEAUX SLIGHT
[2016-08-23 20:48] LABS: HEMOGLOBIN 4.4 g/dL (13.5-17.0)
--- NOTE | 2016-08-23 20:53 | RADIOLOGY REPORT (SQ) ---
EXAM DESCRIPTION: CHEST SINGLE VIEW COMPLETED DATE/TIME: 08/23/2016 8:24 pm REASON FOR STUDY: bradycardia COMPARISON: 04/03/2016 EXAM PARAMETERS: NUMBER OF VIEWS: One view. TECHNIQUE: Single frontal radiographic view of the chest acquired. RADIATION DOSE: NA LIMITATIONS: None. FINDINGS: LUNGS AND PLEURA: No consolidation, significant effusion, or pneumothorax. Mild interstit ial changes. MEDIASTINUM AND HILAR STRUCTURES: Stable. HEART AND VASCULAR STRUCTURES: Similar cardiomegaly. BONES: No acute findings. HARDWARE: None in the chest. OTHER: No other significant finding. IMPRESSION: Mild interstitial changes. Similar cardiomegaly. TECHNICAL DOCUMENTATION: JOB ID: [id number]
--- NOTE | 2016-08-23 21:03 | RADIOLOGY REPORT (SQ) ---
EXAM DESCRIPTION: CT CHEST WITHOUT COMPLETED DATE/TIME: 08/23/2016 8:35 pm REASON FOR STUDY: pain, hypotension COMPARISON: 03/28/2016 TECHNIQUE: CT scan performed of the chest without intravenous contrast. Images reviewed with lung, soft tissue and bone windows. Reconstructed coronal and sagittal MPR images reviewed. All images st ored on PACS. All CT scanners at this facility use dose modulation, iterative reconstruction, and/or weight based d osing when appropriate to reduce radiation dose to as low as reasonably achievable (ALARA). [facility]: Dose Right [facility]: CareDose [facility]: Dose Right [facility]: Teradose 4D [facility]: InstantQ RADIATION DOSE: 9.0 mGy. LIMITATIONS: No technical limitations. FINDINGS: LUNGS AND PLEURA: Large right pleural effusion. Small left pleural effusion. Mild basila r subsegmental atelectasis in the right lower lobe. HILAR AND MEDIASTINAL STRUCTURES: Similar mediastinal lymphadenopathy. HEART AND VASCULAR STRUCTURES: No aneurysm. No pericardial effusion. UPPER ABDOMEN: Inflammatory changes in the right upper quadrant. Limited exam. THYROID AND OTHER SOFT TISSUES: No masses. No adenopathy. BONES: No significant finding. HARDWARE: None in the chest. OTHER: No other significant findings. IMPRESSION: Large right pleural effusion. Small left pleural effusion. Mild basilar subsegmental a telectasis in the right lower lobe.Inflammatory changes in the right upper quadrant. TECHNICAL DOCUMENTATION: JOB ID: [id number] Quality ID # [id number]: Final reports with documentation of one or more dose reduction techniques (e.g., Au tomated exposure control, adjustment of the mA and/or kV according to patient size, use of iterative reconstruction technique) 2010 [employer]- All Rights Reserved
--- NOTE | 2016-08-23 21:08 | RADIOLOGY REPORT (SQ) ---
EXAM DESCRIPTION: CT ABD/PELVIS NO ORAL OR IV COMPLETED DATE/TIME: 08/23/2016 8:35 pm REASON FOR STUDY: hypotension, pain COMPARISON: None. TECHNIQUE: CT scan of the abdomen and pelvis performed without intravenous or oral contrast. Images reviewed with lung, soft tissue, and bone windows. Reconstructed coronal and sagittal MPR images revi ewed. All images stored on PACS. All CT scanners at this facility use dose modulation, iterative reconstruction, and/or weight based d osing when appropriate to reduce radiation dose to as low as reasonably achievable (ALARA). [facility]: Dose Right [facility]: CareDose [facility]: Dose Right [facility]: Teradose 4D [facility]: [employer] RADIATION DOSE: 9.95mGy. LIMITATIONS: None. FINDINGS: LOWER CHEST: Bilateral pleural effusions. Subsegmental atelectasis right lower lobe. NON-CONTRASTED LIVER, SPLEEN, ADRENALS: 1.5 cm low-density nodule in the left adrenal gland. Evaluat ion limited by lack of IV contrast. No identified significant masses. PANCREAS: No masses identified. Mild peripancreatic inflammatory changes near the pancreatic head. GALLBLADDER: No identified stones by CT criteria. Mild -moderate inflammatory changes. RIGHT KIDNEY AND URETER: No suspicious masses. Assessment limited by lack of IV contrast. No signif icant calcifications. No hydronephrosis or hydroureter. LEFT KIDNEY AND URETER: No suspicious masses. Assessment limited by lack of IV contrast. No signifi cant calcifications. No hydronephrosis or hydroureter. AORTA AND RETROPERITONEUM: No aneurysm. No retroperitoneal masses or adenopathy. BOWEL AND PERITONEAL CAVITY: Moderate stool burden. No obvious masses. Scattered retroperitoneal in flammatory changes. No Fluid collection. . APPENDIX: Normal. PELVIS, BLADDER, AND ABDOMINAL WALL:Small midline ventral hernia with a loop of small bowel. No evid ence for strangulation or obstruction. Colonic diverticulosis. No free fluid. Bladder contains a Fol ey catheter. BONES: No significant findings. OTHER: No other significant finding. IMPRESSION: Mild inflammatory changes in the right upper quadrant as well as throughout the retroper itoneum. No fluid collection.Moderate stool burden. Bilateral pleural effusions. Subsegmental atele ctasis right lower lobe. TECHNICAL DOCUMENTATION: JOB ID: [id number] Quality ID # [id number]: Final reports with documentation of one or more dose reduction techniques (e.g., Au tomated exposure control, adjustment of the mA and/or kV according to patient size, use of iterative reconstruction technique) 2010 [email or web address]- All Rights Reserved
[2016-08-23] MEDS ORDERED: ATROPINE SULFATE INJ 1 MG/1 ML VIAL IV ONE ×2 (21:17)
[2016-08-23 21:56] LABS: PROTHROMBIN TIME 18.1 SEC (11.4-15.4)
[2016-08-23 21:57] LABS: PARTIAL THROMBOPLASTIN TIME 35.2 SEC (23.5-35.8)
[2016-08-23 22:01] LABS: VENOUS BLOOD BASE EXCESS -10.9 mmol/L; VENOUS BLOOD HCO3 17.5 mmol/L (20-32)
[2016-08-23] MEDS ORDERED: PANTOPRAZOLE SODIUM 40 MG VIAL IV ONE (22:03)
[2016-08-23 22:08] LABS: VENOUS BLOOD PH 7.18 (7.30-7.42)
[2016-08-23 22:13] LABS: AMORPHOUS SEDIMENT,URINE TRACE /HPF; APPEARANCE,URINE SLIGHTLY-CLOUDY; BILIRUBIN,URINE NEGATIVE (NEGATIVE); GLUCOSE, URINE NEGATIVE (NEGATIVE); KETONES,URINE NEGATIVE (NEGATIVE); LEUKOCYTE ESTERASE,URINE SMALL (NEGATIVE); NITRITE,URINE POSITIVE (NEGATIVE); PROTEIN,URINE 100 mg/dL (NEGATIVE); URINE SPECIFIC GRAVITY 1.014
[2016-08-23 23:49] VITALS: BP 116/55
--- NOTE | 2016-08-24 07:55 | EKG REPORT ---
SEVERITY:- DEFECTIVE ECG - NO FURTHER ANALYSIS ATTEMPTED FOR THIS ECG - NOT ENOUGH LEADS COULD BE MEASURED DEFECTIVE EKG, REPEAT. : Confirmed by: Adam Gilbert MD 24-Aug-2016 07:55:01
[2016-08-24 13:17] LABS: PATH REVIEW PATHOLOGIST REVIEWED
--- NOTE | 2016-08-24 13:34 | EKG REPORT ---
SEVERITY:- ABNORMAL ECG - JUNCTIONAL ESCAPE RHYTHM PROBABLE INFERIOR INFARCT, AGE INDETERMINATE NONSPECIFIC T ABNORMALITIES, ANT-LAT LEADS : Confirmed by: Adam Gilbert MD 24-Aug-2016 13:33:14
--- NOTE | 2016-08-24 13:34 | EKG REPORT ---
SEVERITY:- ABNORMAL ECG - JUNCTIONAL ESCAPE RHYTHM BORDERLINE INFERIOR Q WAVES NONSPECIFIC REPOL ABNORMALITY, DIFFUSE LEADS : Confirmed by: Adam Gilbert MD 24-Aug-2016 13:33:30
== END 2016-08-24 | disposition short-term general hospital (02) ==
LOC: ER 19:25
DX: D64.9 Anemia, unspecified (principal); N17.9 Acute kidney failure, unspecified; I95.9 Hypotension, unspecified; R00.1 Bradycardia, unspecified; R10.13 Epigastric pain; K46.9 Unspecified abdominal hernia without obstruction or gangrene; I25.2 Old myocardial infarction; Z98.61 Coronary angioplasty status; Z86.73 Personal history of transient ischemic attack (TIA), and cerebral infarction without residual deficits; Z79.82 Long term (current) use of aspirin; Z79.02 Long term (current) use of antithrombotics/antiplatelets; Z66 Do not resuscitate
CPT/HCPCS: 93005; 96376; 99291; 99292; 96372; 96374; 96375; 86900; 86901; 36415; 82553; 36430; 86850; 82550; 85025; 85610; 85730; 82272; 80053; 81001; 84484; 86920; 82803; 83605; 71010; 71250; 74176; 93010; P9016; J0461; J1610; C9113; J7050; S0164

== ENCOUNTER 2016-11-24 20:24 | Inpatient (IN) | payer MEDICARE ==
[2016-11-24] MEDS ORDERED: LIDOCAINE 2% URO-JET 5 ML KIT MM ONE (20:59)
--- NOTE | 2016-11-24 21:03 | ER Document Report ---
ED GI/ - General Chief Complaint: Blood in Catheter Stated Complaint: BLOOD IN CATHETER Time Seen by Provider: 11/24/16 20:54 Notes: The patient is a 76-year-old male, past medical history A. la nena on Eliquis, chronic indwelling Anderson due to bladder dysfunction, presents after his Anderson was removed due to discomfort earlier today and he started to have bleeding. Patient's urologist is in [place]. He has his Anderson changed every month. TRAVEL OUTSIDE OF THE [place] IN LAST 30 DAYS: No - Related Data Allergies/Adverse Reactions: No Known Allergies Allergy (Verified 08/23/16 21:34) Past Medical History - General Information source: Patient - Social History Smoking Status: Unknown if Ever Smoked Family History: Reviewed & Not Pertinent, Hypertension - Past Medical History Cardiac Medical History: Reports: Hx Congestive Heart Failure, Hx Heart Attack Pulmonary Medical History: Reports: Hx COPD Denies: Hx Tuberculosis Neurological Medical History: Reports: Hx Seizures Renal/ Medical History: Denies: Hx Peritoneal Dialysis GI Medical History: Reports: Hx Hiatal Hernia Psychiatric Medical History: Denies: Hx Bipolar Disorder, Hx Dementia, Hx Depression Past Surgical History: Reports: Hx Abdominal Surgery - perforated hernia, Hx Cardiac Surgery - STENT - Immunizations Hx Diphtheria, Pertussis, Tetanus Vaccination: Yes Hx Pneumococcal Vaccination: 01/02/11 Review of Systems - Review of Systems Notes: REVIEW OF SYSTEMS: CONSTITUTIONAL: -fevers, -chills EENT: -eye pain, -difficulty swallowing, -nasal congestion CARDIOVASCULAR:-chest pain, -syncope. RESPIRATORY: -cough, -SOB GASTROINTESTINAL: -abdominal pain, - nausea, -vomiting, -diarrhea GENITOURINARY: -dysuria, +hematuria MUSCULOSKELETAL: -back pain, -neck pain SKIN: -rash or skin lesions. HEMATOLOGIC: -easy bruising or bleeding. LYMPHATIC: -swollen, enlarged glands. NEUROLOGICAL: -altered mental status or loss of consciousness, -headache, - neurologic symptoms PSYCHIATRIC: -anxiety, -depression. ALL OTHER SYSTEMS REVIEWED AND NEGATIVE. Physical Exam - Vital signs Vitals: Temp Pulse Resp BP Pulse Ox 100.1 F 77 22 H 160/80 H 100 11/24/16 20:43 11/24/16 20:43 11/24/16 20:43 11/24/16 20:43 11/24/16 20:43 - Notes Notes: PHYSICAL EXAMINATION: GENERAL: Well-appearing, well-nourished and in no acute distress. HEAD: Atraumatic, normocephalic. EYES: Pupils equal round and reactive to light, extraocular movements intact, sclera anicteric, conjunctiva are normal. ENT: nares patent, oropharynx clear without exudates. Moist mucous membranes. NECK: Normal range of motion, supple without lymphadenopathy LUNGS: Breath sounds clear to auscultation bilaterally and equal. No wheezes rales or rhonchi. HEART: Regular rate and rhythm without murmurs ABDOMEN: Soft, nontender, normoactive bowel sounds. No guarding, no rebound. No masses appreciated. : Blood around urethra EXTREMITIES: Normal range of motion, no pitting or edema. No cyanosis. NEUROLOGICAL: Cranial nerves grossly intact. Normal speech, normal gait. Normal sensory and motor exams. PSYCH: Normal mood, normal affect. SKIN: Warm, Dry, normal turgor, no rashes or lesions noted. Course - Re-evaluation Re-evalutation: Anderson replaced with decreased bleeding from his urethra. He does have 47 WBCs his urine with a temperature of 100.1. Will begin Keflex for early urinary tract infection and have him follow-up with his primary care physician and urologist. Given return precautions and the family understands. - Vital Signs Vital signs: Temp Pulse Resp BP Pulse Ox 100.1 F 77 22 H 160/86 H 100 11/24/16 20:53 11/24/16 20:53 11/24/16 20:53 11/24/16 20:53 11/24/16 20:53 - Laboratory Laboratory results interpreted by me: 11/24/16 22:10 Urine Protein 30 H Urine Blood LARGE H Ur Leukocyte Esterase SMALL H Discharge - Discharge Clinical Impression: Hematuria Qualifiers: Hematuria type: unspecified type Qualified Code(s): R31.9 - Hematuria, unspecified Anderson catheter problem Qualifiers: Encounter type: initial encounter Qualified Code(s): T83.9XXA - Unspecified complication of genitourinary prosthetic device, implant and graft, initial encounter UTI (urinary tract infection) Qualifiers: Urinary tract infection type: acute cystitis Hematuria presence: with hematuria Qualified Code(s): N30.01 - Acute cystitis with hematuria Condition: Stable Disposition: HOME, SELF-CARE Additional Instructions: Anderson Catheter Care Tube Position: Keep the catheter connected to the drainage tubing at all times. Avoid pulling on the catheter. Keep the drainage tube taped to the mid- thigh, on top of your leg (not underneath it). Be sure there are no kinks or loops in the tube. Keep the drainage bag below the bladder. When in bed, the drainage bag should hang below the abdomen but should not lie on the floor. The drainage bag has hooks at the top so it can be hung on a chair or bed. Daily Cleaning: Wash your hands with soap and water before and after caring for your catheter. Twice a day, clean yourself where the catheter goes into the urethra. Use a warm, soapy wash cloth to clean around the urethral opening and the first few inches of the catheter. Females should wash from front to back to decrease the risk of infection from fecal material. After washing with soap, rinse the area with water. Do not put powder around the catheter. Apply ointment only if instructed by your doctor or nurse. Follow up if you develop fever or chills, flank or abdominal pain, blood in the urine, or if urine is not draining into the catheter. URINARY TRACT INFECTION: Your evaluation indicates that you have a urinary tract infection. This is due to germs growing in the bladder. This is a common problem. This infection usually responds quickly to antibiotics. Your antibiotic should be taken exactly as prescribed. Drink plenty of fluids -- three to four quarts a day. Occasionally, a bladder anesthetic will be prescribed to help stop the feeling of urgency until the antibiotic has a chance to clear the infection. This may cause your urine to be dark orange. Certain urine infections require a culture. If the doctor obtained a culture, the results will be back in two days. You should call to see if a change in treatment is needed. A repeat urinalysis after you finish treatment is often recommended. The physician will let you know if further testing is required. Call the doctor if you develop fever, chills, flank pain, inability to urinate, or blood in the urine. ANTIBIOTIC THERAPY: You have been given an antibiotic prescription. It's important that you take all the medication, unless instructed otherwise by your physician. Failure to complete the entire course can result in relapse of your condition. Common side effects of antibiotics include nausea, intestinal cramping, or diarrhea. Women may develop vaginal yeast infections, and babies can get yeast (thrush) in the mouth following the use of antibiotics. Contact your physician if you develop significant side effects from this medication. Allergy to this antibiotic can result in hives, wheezing, faintness, or itching. If symptoms of allergy occur, stop the medication and call the doctor. CEPHALEXIN: The antibiotic you've been prescribed is a member of the cephalosporin class. This type of antibiotic covers a wide variety of infections, including those of the skin, lungs, and urinary tract. It's useful for staph infections. This antibiotic is slightly similar to the penicillin family. In rare cases , a person who is allergic to penicillin will also be allergic to this medication. If you have had a severe allergic reaction to penicillin, and have not taken this antibiotic since that time, notify your doctor. Antibiotics which cover many germs ("broad spectrum" antibiotics) are more likely to cause diarrhea or "yeast" infections. Women prone to vaginal yeast problems may suffer an attack after taking this antibiotic. In infants, oral thrush (white spots "stuck" on the cheek) or yeast diaper rash may result. See your doctor if these problems occur. Call at once if you develop itching, hives , shortness of breath, or lightheadedness. FOLLOW-UP CARE: If you have been referred to a physician for follow-up care, call the physician s office for an appointment as you were instructed or within the next two days. If you experience worsening or a significant change in your symptoms, notify the physician immediately or return to the Emergency Department at any time for re-evaluation. Prescriptions: Cephalexin Monohydrate [Keflex 500 mg Capsule] 500 mg PO Q8H 7 Days capsule Referrals: SHWETHA VASQUEZ MD [ACTIVE STAFF] - Follow up as needed
[2016-11-24 22:57] LABS: APPEARANCE,URINE SLIGHTLY-CLOUDY; BILIRUBIN,URINE NEGATIVE (NEGATIVE); GLUCOSE, URINE NEGATIVE (NEGATIVE); KETONES,URINE NEGATIVE (NEGATIVE); LEUKOCYTE ESTERASE,URINE SMALL (NEGATIVE); NITRITE,URINE NEGATIVE (NEGATIVE); PROTEIN,URINE 30 mg/dL (NEGATIVE); URINE SPECIFIC GRAVITY 1.011; UROBILINOGEN,URINE NEGATIVE mg/dL (<2.0)
[2016-11-24] MEDS ORDERED: CEPHALEXIN 500 MG CAPSULE PO ONE (23:05)
[2016-11-24] MEDS ORDERED: ACETAMINOPHEN 325 MG TABLET PO ONE (23:36)
[2016-11-25] MEDS ORDERED: NORMAL SALINE 1000 ML 1,000 ML IV PRN ×4 (01:18→05:20)
[2016-11-25] MEDS ORDERED: IBUPROFEN 800 MG TABLET PO ONE (01:18)
--- NOTE | 2016-11-25 01:23 | ER Document Report ---
Doctor's Note Notes: 11/25/16 01:22 Nursing staff requested that I evaluate patient, he was seen by previous provider who had ordered discharge, however patient's fever spiked up again and he is now tachycardic, I have evaluated patient at bedside, he is stable, does have evidence of tachycardia, sepsis workup has been ordered as well as additional antipyretic medication and IV fluids 11/25/16 04:29 Patient remains tachycardic and slightly hypotensive, requiring multiple fluid boluses, he will be admitted to the hospitalist service for urinary tract infection with signs of sepsis Discharge - Discharge Clinical Impression: Hematuria, Anderson catheter problem UTI (urinary tract infection) Qualifiers: Urinary tract infection type: acute cystitis Hematuria presence: with hematuria Qualified Code(s): N30.01 - Acute cystitis with hematuria Sepsis Qualifiers: Sepsis type: sepsis due to unspecified organism Qualified Code(s): A41.9 - Sepsis, unspecified organism Condition: Fair Disposition: ADMITTED INPATIENT Admitting Provider: Hospitalist Unit Admitted: Telemetry Critical Care Note - Critical Care Note Total time excluding time spent on procedures (mins): 45 Comments: Patient with signs and symptoms consistent with sepsis, requiring frequent reevaluation's, multiple IV fluid boluses and admission to hospitalist service Sepsis - Vital Signs Vitals: Temp Pulse Resp BP Pulse Ox 100.2 F 115 H 24 H 84/42 L 97 11/25/16 03:00 11/25/16 00:55 11/25/16 04:15 11/25/16 04:15 11/25/16 04:15 Interpretation: Hypotensive, Tachycardic - Cardiovascular Peripheral Pulse Strength: Normal Capillary refill: < 3 seconds Rhythm: Tachycardia Heart Sounds: Normal auscultation - Respiratory Breath Sounds: Clear Respiratory Status: No respiratory distress - Skin Skin Color: Normal
[2016-11-25 01:26] LABS: VENOUS BLOOD BASE EXCESS 2.5 mmol/L; VENOUS BLOOD HCO3 25.9 mmol/L (20-32); VENOUS BLOOD PCO2 36.2 mmHg (35-63); VENOUS BLOOD PH 7.47 (7.30-7.42)
[2016-11-25 01:30] LABS: HEMATOCRIT 33.6 % (37.9-51.0); HEMOGLOBIN 11.4 g/dL (13.5-17.0); MEAN CORPUSCULAR HEMOGLOBIN 30.3 pg (27.0-33.4); MEAN CORPUSCULAR VOLUME 89 fl (80-97); RED BLOOD COUNT 3.78 10^6/uL (4.35-5.55); RED CELL DISTRIBUTION WIDTH 14.2 % (11.5-14.0); WHITE BLOOD COUNT 8.6 10^3/uL (4.0-10.5)
[2016-11-25 01:32] LABS: PROTHROMBIN TIME 14.4 SEC (11.4-15.4)
[2016-11-25 01:35] LABS: HGB HCT DIFFERENCE 0.6
[2016-11-25 01:46] LABS: ALANINE AMINOTRANSFERASE 26 U/L (21-72); ALBUMIN 3.9 g/dL (3.5-5.0); ALKALINE PHOSPHATASE 98 U/L (38-126); ANION GAP 13 (5-19); ASPARTATE AMINO TRANSFERASE 22 U/L (17-59); BILIRUBIN,DIRECT 0.4 mg/dL (0.0-0.4); BILIRUBIN,TOTAL 0.5 mg/dL (0.2-1.3); BLOOD UREA NITROGEN 17 mg/dL (7-20); CALCIUM 9.6 mg/dL (8.4-10.2); CARBON DIOXIDE 23 mmol/L (22-30); CHLORIDE 104 mmol/L (98-107); CREATININE RESULT 0.94 mg/dL (0.52-1.25); GLUCOSE 104 mg/dL (75-110); POTASSIUM 3.3 mmol/L (3.6-5.0); SODIUM 139.9 mmol/L (137-145); TOTAL PROTEIN 6.9 g/dL (6.3-8.2)
[2016-11-25 01:47] LABS: BAND NEUTROPHILS % (MANUAL) 3 % (3-5); BASOPHILS % (MANUAL) 0 % (0-2); EOSINOPHILS % (MANUAL) 0 % (0-6); LYMPHOCYTES % (MANUAL) 2 % (13-45); TOTAL CELLS COUNTED 100
[2016-11-25 01:49] LABS: RBC MORPHOLOGY COMMENT NORMO-CYTIC/CHROMIC; TOXIC GRANULATION SLIGHT
[2016-11-25] MEDS ORDERED: CEFTRIAXONE INJ 1000 MG VIAL IV ONE (01:59)
[2016-11-25] MEDS ORDERED: CEFTRIAXONE 1 GM/D5W RTU 1 GM/50 ML RTUPB IV ONE (02:05)
--- NOTE | 2016-11-25 03:20 | RADIOLOGY REPORT (SQ) ---
EXAM DESCRIPTION: CHEST SINGLE VIEW COMPLETED DATE/TIME: 11/25/2016 2:43 am REASON FOR STUDY: fever COMPARISON: CT and CR, 08/23/2016. EXAM PARAMETERS: NUMBER OF VIEWS: One view. TECHNIQUE: Single frontal radiographic view of the chest acquired. RADIATION DOSE: NA LIMITATIONS: None. FINDINGS: LUNGS AND PLEURA: Mild interstitial markings. Moderate lung volume. Mild haziness/layere d effusion of the right lower hemithorax. MEDIASTINUM AND HILAR STRUCTURES: No masses. Contour normal. HEART AND VASCULAR STRUCTURES: Moderate enlargement of the cardiac silhouette. Atherosclerosis. BONES: No acute findings. HARDWARE: None in the chest. OTHER: No other significant finding. IMPRESSION: Mild chronic interstitial markings and moderate cardiac enlargement. Differential diagn osis includes chronic interstitial lung disease, mild CHF, and/or atypical pneumonitis. TECHNICAL DOCUMENTATION: JOB ID: [id number]
[2016-11-25] MEDS ORDERED: NOREPINEPHRINE BITARTRATE INJ/PF 4 MG/4 ML SDV IV ONE (04:41)
[2016-11-25] MEDS ORDERED: POTASSI CL 20 MEQ/50 ML RIDER 20 MEQ/50 ML RTUPB IV SCH (05:18)
[2016-11-25] MEDS ORDERED: DEXTROSE 5%-WATER 250 ML with NOREPINEPHRINE BITARTRATE 4 MG IV PRN ×2 (05:19)
[2016-11-25] MEDS ORDERED: GLUCAGON,HUMAN RECOMB 1 MG INJ IM PRN (05:24)
[2016-11-25] MEDS ORDERED: DEXTROSE 40% GEL 15 GM TUBE PO PRN ×2 (05:24)
[2016-11-25] MEDS ORDERED: DEXTROSE 50%-WATER 25 GM/50 ML DISP.SYRIN IV PRN ×2 (05:24)
[2016-11-25] MEDS ORDERED: PIPERACILLIN SODIUM/TAZOBACTAM 4.5 GM in NORMAL SALINE 100 ML IV SCH (05:30)
[2016-11-25] MEDS ORDERED: PROMETHAZINE HCL 25 MG TABLET PO PRN (05:35)
[2016-11-25] MEDS ORDERED: ACETAMINOPHEN 325 MG TABLET PO PRN (05:35)
--- NOTE | 2016-11-25 05:48 | PDOC H&P ---
History of Present Illness Admission Date/PCP: 11/25/16 02:07 Patient complains of: Blood in Anderson catheter History of Present Illness: JESENIA LÓPEZ is a 76 year old male usp resident of the [facility] in [facility] with chronic indwelling Anderson catheter due to bladder dysfunction, changed monthly, who presents to the emergency room for evaluation of above complaint. Anderson was exchanged earlier today due to discomfort and patient started to have bleeding. Initial plans were to send the patient home, but he spiked a fever to 102+ and decision was made to admit the patient. Subsequently began having problems with hypotension, necessitating IV fluid boluses along with Levophed drip. Has underlying combined systolic and diastolic congestive heart failure. Patient has been discussed with emergency room physician who evaluated the patient. Hospitalized on a primary care provider's service March 28 of last year through April 07 of this year with final diagnoses including sepsis due to urinary tract infection, hypernatremia, rhabdomyolysis, acute encephalopathy, acute hypoxic respiratory failure, and COPD exacerbation. History and physical and discharge summary reviewed.. Dictation via voice recognition software. Laboratory results are listed in [employer] and are reviewed. X-ray summary results are listed below, with full report(s) reviewed. . EKG reviewed and compared to a prior tracing from August 23 of this year. Social history/personal habits: Single. 3 children. Retired. group home resident. Former smoker. No alcohol or illicit drug use. Allergies/adverse reactions are listed in [employer] and are reviewed. Home medications initially autopopulated into [email or web address] may not accurately reflect patient's true medications, dosages, and/or frequencies. ink technician to reconcile medications. Unfortunately, patient not certain of all medications/dosages/frequencies. REVIEW OF SYSTEMS: Constitutional: See history and present illness. Eyes: Wears glasses ENT: No swallowing problems or complaints. Partial hearing loss. Pulmonary: No current complaints. Cardiovascular: No current complaints, including chest pain. Gastrointestinal: No current complaints, including nausea or vomiting. Skin: No current complaints, including rashes. Hematologic: Denies easy bruising. Neurologic: No current complaints, including numbness or tingling. Musculoskeletal: No current or chronic joint complaints, such as arthritis. Psychiatric: Denies anxiety or depression. Endocrine: No current complaints, including polyuria. Genitourinary: See history and present illness. PHYSICAL EXAMINATION: 80.4 kg. Height is not recorded on the chart. Pulse 101 and regular. 98% saturation on room air. Respirations are 23 and unlabored. Blood pressure 89/ 48. Temperature 100.2. Obese otherwise well-developed elderly male appearing approximately his stated age. Pleasant awake alert and cooperative. Appears to feel a bit under the weather, so to speak. Mildly anxious. No agitation. Skin is warm and dry. No grossly obvious evidence of rash in areas of skin examined. No subcutaneous nodules palpated. ENT: Hearing grossly normal to normal conversation. Tongue midline on protrusion pink and slightly tacky. Eyes: No scleral icterus. Pupils equal and reactive to light at 4 mm. George conjunctivae. Neck is supple and nontender to gentle active range of motion and palpation. Midline trachea. No palpable thyroid nodule mass enlargement or tenderness. Lymphatic: No palpable cervical or clavicular nodes. Neck and lymphatic exams limited by patient body habitus. Psychiatric: Fair to reasonable insight into acute and chronic medical issues. Oriented to time location and why here. Lungs: Auscultation reveals equal breath sounds bilaterally. No use of accessory respiratory muscles. Mildly coarse breath sounds diffusely bilaterally. Cardiovascular: Heart regular rate and rhythm, without gallop murmur or rub. No carotid or abdominal aortic bruits. Mild bilateral symmetric nonpitting ankle and pedal edema. Palpable dorsalis pedis pulses. Abdomen:soft somewhat obese nontender with positive bowel sounds. Unable to adequately evaluate abdomen for masses or organomegaly due to body habitus. Extremities: Feet are warm and dry. No calf tenderness to compression. No grossly obvious visual evidence of calf swelling. Gentle manipulation of lower extremities fails to reveal any obvious evidence of injury or instability to knees hips or ankles. Neurologic: Moves upper extremities grossly normally. Patellar reflexes absent. Absent Babinski. Light touch is intact at feet. Dorsiflexion and plantarflexion of feet 5 / 5 and symmetric. Past Medical History Cardiac Medical History: Reports: 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, Myocardial Infarction Denies: DVT, Pulmonary Embolism Pulmonary Medical History: Reports: Chronic Obstructive Pulmonary Disease (COPD) Denies: Tuberculosis EENT Medical History: Reports: Eyes - Glasses, Ears - Partial hearing loss Denies: Throat Neurological Medical History: Reports: Ischemic CVA, Seizures - Last episode April 2016 Denies: Hemorrhagic CVA GI Medical History: Reports: Hiatal Hernia Denies: Cirrhosis, Gastroesophageal Reflux Disease, Hepatitis, Peptic Ulcer Disease Musculoskeltal Medical History: Denies: Arthritis Skin Medical History: Reports: None Psychiatric Medical History: Denies: Alcohol Dependency, Bipolar Disorder, Dementia, Depression, General Anxiety Disorder, Substance Abuse, Tobacco Dependency Infectious Medical History: Denies: Hepatitis B, Hepatitis C Past Surgical History Past Surgical History: Reports: Coronary Stent Social History Information Source: Patient, Emergency Med Personnel, [facility] Records Lives with: [facility] Smoking Status: Former Smoker Frequency of Alcohol Use: None Hx Recreational Drug Use: No Drugs: None Hx Prescription Drug Abuse: No - Advance Directive Resuscitation Status: Do Not Resuscitate - Portable DNR on chart Surrogate healthcare decision maker:: Daughter Carmelina Family History Family History: Reviewed & Not Pertinent, Hypertension Parental Family History Reviewed: Yes - Mother alive at 97; father of myocardial infarction. Children Family History Reviewed: Yes - Healthy Sibling(s) Family History Reviewed.: Yes - Healthy Medication/Allergy Home Medications: RX: Aspirin [Aspirin 325 mg Tablet] 325 mg PO DAILY 11/25/16 RX: Atorvastatin Calcium [Lipitor 40 mg Tablet] 40 mg PO QHS 11/25/16 RX: Cyanocobalamin (Vitamin B-12) [Vitamin B-12 Inj 1000 Mcg/1 ml Vial] 1,000 mcg IM .MONTHLY 11/25/16 RX: Docusate Sodium [Colace 100 mg Capsule] 100 mg PO BID 11/25/16 RX: Ergocalciferol (Vitamin D2) [Vitamin D2] 50,000 unit PO Q7D 11/25/16 RX: Ferrous Sulfate [Feosol] 325 mg PO BID 11/25/16 RX: Finasteride [Proscar 5 mg Tablet] 5 mg PO DAILY 11/25/16 RX: Fluticasone Propionate [Flonase Nasal Marshall 50 Mcg/Marshall 16 gm] 1 spray NASL DAILY 11/25/16 RX: Furosemide [Lasix 20 mg Tablet] 20 mg PO QAM 11/25/16 RX: Lisinopril [Prinivil 2.5 mg Tablet] 2.5 mg PO DAILY 11/25/16 RX: Multivit,Calc,Mins/Iron/Folic [Therapeutic-M Tablet] 1 each PO DAILY RX: Phenobarbital [Phenobarbital 64.8 mg Tablet] 64.8 mg PO Q12 11/25/16 RX: Quetiapine Fumarate [Seroquel 25 mg Tablet] 25 mg PO Q8 11/25/16 RX: Sennosides [Senna Laxative] 2 tab PO DAILY 11/25/16 RX: Tamsulosin HCl [Flomax] 0.4 mg PO DAILY 11/25/16 RX: Umeclidinium Brm/Vilanterol Tr [Anoro Ellipta 62.5-25 Mcg INH] 1 puff IH DAILY 11/25/16 RX: Amox Tr/Potassium Clavulanate [Augmentin "500" Tablet] 1 tab PO Q8 #24 tablet 11/30/16 RX: Prednisone [Deltasone 20 mg Tablet] 10 mg PO DAILY #39 tablet 11/30/16 Allergies/Adverse Reactions: No Known Allergies Allergy (Verified 11/25/16 01:51) Physical Exam Vital Signs: Temp Pulse Resp BP Pulse Ox 100.2 F 115 H 19 95/52 L 93 11/25/16 03:00 11/25/16 00:55 11/25/16 05:31 11/25/16 05:31 11/25/16 05:01 Results Impressions: Chest X-Ray 11/25/16 01:19 IMPRESSION: Mild chronic interstitial markings and moderate cardiac enlargement. Differential diagnosis includes chronic interstitial lung disease , mild CHF, and/or atypical pneumonitis. Assessment & Plan - Diagnosis (1) Hypokalemia Is this a current diagnosis for this admission?: Yes Plan: Potassium supplement, with follow-up chemistry. (2) Septic shock Is this a current diagnosis for this admission?: Yes Plan: Due to urinary tract infection. Will necessitate intensive care unit admission. IV fluids to be used judiciously, given his underlying congestive heart failure. Levophed. I have strongly encouraged patient not to get out of bed without notifying staff , to avoid a fall with injury. Knee high SCDs for DVT prophylaxis; with patient reportedly on Eliquis, no need for Lovenox or heparin at this point in time. Impression and plans were discussed with patient, who concurs. Time spent in evaluation and management of patient: 78 critical-care minutes. (3) Thrombocytopenia Is this a current diagnosis for this admission?: Yes Plan: Possibly due to underlying infection. Follow-up CBC. (4) UTI (urinary tract infection) due to urinary indwelling Anderson catheter Qualifiers: Indwelling urinary catheter type: indwelling urethral catheter Encounter type: initial encounter Qualified Code(s): T83.511A - Infection and inflammatory reaction due to indwelling urethral catheter, initial encounter; N39.0 - Urinary tract infection, site not specified Is this a current diagnosis for this admission?: Yes Plan: Prior urine culture results noted. However, despite having received Rocephin, septic shock has developed. Will switch to Zosyn. (5) Chronic combined systolic and diastolic CHF (congestive heart failure) Is this a current diagnosis for this admission?: Yes Plan: Check BNP. (6) Do not resuscitate Is this a current diagnosis for this admission?: Yes Plan: Portable document on chart; will follow this directive. (7) Seizure disorder Is this a current diagnosis for this admission?: Yes Plan: Seizure precautions. Resume home medications as appropriate once these have been determined and reviewed. - Time Critical Time spent with patient: 35 or more minutes Anticipated discharge: SNF Within: Other - Inpatient Certification Based on my medical assessment, after consideration of the patient's comorbidities, presenting symptoms, or acuity I expect that the services needed warrant INPATIENT care.: Yes I certify that my determination is in accordance with my understanding of Medicare's requirements for reasonable and necessary INPATIENT services [42 CFR 412.3e].: Yes Medical Necessity: Significant Comorbidiites Make Outpatient Treatment Too Risky , Need For IV Fluids, Need For Continuous Telemetry Monitoring, Need for IV Antibiotics, Risk of Diagnosis Which Will Require Inpatient Eval/Care/Monitoring Post Hospital Care: D/C or Transfer Summary
[2016-11-25 05:57] LABS: ADD ON TESTING BLD IN LAB ACKNOWLEDGE
[2016-11-25 06:18] LABS: MAGNESIUM 1.7 mg/dL (1.6-2.3)
[2016-11-25 06:31] LABS: TROPONIN I 0.08 ng/mL
[2016-11-25] MEDS ORDERED: PIPERACILLIN SODIUM/TAZOBACTAM 4.5 GM in NORMAL SALINE 100 ML IV ONE (09:15)
[2016-11-25] MEDS ORDERED: ENOXAPARIN SODIUM INJ 40 MG/0.4 ML DISP.SYRIN SUBCUT SCH (10:00)
[2016-11-25] MEDS: DOCUSATE SODIUM 100 MG CAPSULE PO SCH ×2 (10:24→17:54)
[2016-11-25] MEDS ORDERED: FUROSEMIDE INJ/PF 40 MG/4 ML SDV ONE (12:55)
[2016-11-25] MEDS ORDERED: FUROSEMIDE INJ/PF 40 MG/4 ML SDV IV ONE (14:00)
[2016-11-25] MEDS: PIPERACILLIN SODIUM/TAZOBACTAM 4.5 GM in NORMAL SALINE 100 ML IV SCH ×2 (17:54→20:25)
[2016-11-25 21:22] LABS: ANION GAP 9 (5-19); BLOOD UREA NITROGEN 19 mg/dL (7-20); CALCIUM 8.5 mg/dL (8.4-10.2); CARBON DIOXIDE 23 mmol/L (22-30); CHLORIDE 108 mmol/L (98-107); CREATININE RESULT 1.01 mg/dL (0.52-1.25); GLUCOSE 163 mg/dL (75-110); MAGNESIUM 1.8 mg/dL (1.6-2.3); POTASSIUM 3.2 mmol/L (3.6-5.0); SODIUM 140.1 mmol/L (137-145)
--- NOTE | 2016-11-25 21:29 | EKG REPORT ---
SEVERITY:- ABNORMAL ECG - SINUS TACHYCARDIA MULTIPLE VENTRICULAR PREMATURE COMPLEXES INFERIOR INFARCT, AGE INDETERMINATE CONSIDER POSTERIOR WALL INVOLVEMENT LATERAL LEADS ARE ALSO INVOLVED : Confirmed by: Sherrie Nunn 25-Nov-2016 21:27:04
[2016-11-25] MEDS ORDERED: MAGNESIUM SULFATE/D5W 1 GM/100 ML RTUPB IV ONE (23:00)
[2016-11-25] MEDS: POTASSI CL 20 MEQ/50 ML RIDER 20 MEQ/50 ML RTUPB IV SCH (23:57)
[2016-11-25] MEDS: NORMAL SALINE 1000 ML 1,000 ML IV PRN (23:59)
[2016-11-26] MEDS: POTASSI CL 20 MEQ/50 ML RIDER 20 MEQ/50 ML RTUPB IV SCH ×2 (01:46→04:20)
[2016-11-26] MEDS: PIPERACILLIN SODIUM/TAZOBACTAM 4.5 GM in NORMAL SALINE 100 ML IV SCH (02:32)
[2016-11-26 07:16] LABS: ANION GAP 7 (5-19)
[2016-11-26 07:23] LABS: ABSOLUTE LYMPHOCYTES (AUTO) 0.5 10^3/uL (0.5-4.7); ABSOLUTE MONOCYTES (AUTO) 0.4 10^3/uL (0.1-1.4); ABSOLUTE NEUT (AUTO) 6.1 10^3/uL (1.7-8.2); BASOPHILS % (AUTO) 0.2 % (0-2); EOSINOPHILS % (AUTO) 0.2 % (0-6); HEMOGLOBIN 10.7 g/dL (13.5-17.0); HGB HCT DIFFERENCE 1.1; LYMPHOCYTES % (AUTO) 7.7 % (13-45); MEAN CORPUSCULAR HGB CONC 34.6 g/dL (32.0-36.0); MEAN CORPUSCULAR VOLUME 89 fl (80-97); MONOCYTES % (AUTO) 6.3 % (3-13); RED BLOOD COUNT 3.47 10^6/uL (4.35-5.55); RED CELL DISTRIBUTION WIDTH 14.7 % (11.5-14.0); SEGMENTED NEUTROPHILS % (AUTO) 85.6 % (42-78); WHITE BLOOD COUNT 7.1 10^3/uL (4.0-10.5)
[2016-11-26 07:39] LABS: HYPOCHROMASIA SLIGHT; POLYCHROMASIA SLIGHT
[2016-11-26 07:45] LABS: BLOOD UREA NITROGEN 20 mg/dL (7-20); CALCIUM 8.5 mg/dL (8.4-10.2); CARBON DIOXIDE 25 mmol/L (22-30); CHLORIDE 109 mmol/L (98-107); CREATININE RESULT 1.07 mg/dL (0.52-1.25); GLUCOSE 104 mg/dL (75-110); POTASSIUM 4.2 mmol/L (3.6-5.0); SODIUM 140.9 mmol/L (137-145)
--- NOTE | 2016-11-26 08:06 | PDOC PROGRESS REPORT ---
Subjective Progress Note for:: 11/26/16 Subjective:: Patient feels better, chronically congested reports secondary to smoking for 70 years. The patient denies any shortness of breath or discomfort at this time. Denies chills fever or diarrhea. Tolerating oral intake. No abdominal pain nausea or vomiting. Physical Exam Vital Signs: Temp Pulse Resp BP Pulse Ox 98.3 F 89 19 108/75 94 11/26/16 07:48 11/26/16 07:48 11/26/16 07:48 11/26/16 07:48 11/26/16 07:48 Intake & Output 11/25/16 11/26/16 11/27/16 06:59 06:59 06:59 Intake Total 4567 Output Total 150 2465 50 Balance -150 2102 -50 Weight 81.8 kg 82.7 kg General appearance: PRESENT: no acute distress, morbidly obese Head exam: PRESENT: normocephalic Eye exam: PRESENT: EOMI Mouth exam: PRESENT: moist, neck supple Neck exam: ABSENT: JVD Respiratory exam: PRESENT: rhonchi, unlabored. ABSENT: wheezes Cardiovascular exam: PRESENT: RRR GI/Abdominal exam: PRESENT: soft. ABSENT: distended, tenderness Extremities exam: PRESENT: other - Trace pretibial edema Neurological exam: PRESENT: alert, awake, oriented to situation Skin exam: PRESENT: dry, warm. ABSENT: cyanosis Results Laboratory Results: 11/26/16 06:49 11/26/16 06:49 11/25/16 11/26/16 11/26/16 21:04 06:49 06:49 WBC 7.1 RBC 3.47 L Hgb 10.7 L Hct 31.0 L MCV 89 MCH 31.0 MCHC 34.6 RDW 14.7 H Plt Count 115 L Seg Neutrophils % 85.6 H Lymphocytes % 7.7 L Monocytes % 6.3 Eosinophils % 0.2 Basophils % 0.2 Absolute Neutrophils 6.1 Absolute Lymphocytes 0.5 Absolute Monocytes 0.4 Absolute Eosinophils 0.0 Absolute Basophils 0.0 Sodium 140.1 140.9 Potassium 3.2 L 4.2 D Chloride 108 H 109 H Carbon Dioxide 23 25 Anion Gap 9 7 BUN 19 20 Creatinine 1.01 1.07 Est GFR ( Amer) > 60 > 60 Est GFR (Non-Af Amer) > 60 > 60 Glucose 163 H 104 Calcium 8.5 8.5 Magnesium 1.8 11/25/16 11/25/16 11/26/16 05:40 21:04 03:02 Troponin I 0.080 0.187 0.155 NT-Pro-B Natriuret Pep 6150 H Impressions: Chest X-Ray 11/25/16 01:19 IMPRESSION: Mild chronic interstitial markings and moderate cardiac enlargement. Differential diagnosis includes chronic interstitial lung disease , mild CHF, and/or atypical pneumonitis. Assessment & Plan - Diagnosis (1) Hypotension Qualifiers: Hypotension type: unspecified hypotension type Qualified Code(s): I95.9 - Hypotension, unspecified Is this a current diagnosis for this admission?: Yes (2) Sepsis Qualifiers: Sepsis type: sepsis due to unspecified organism Qualified Code(s): A41.9 - Sepsis, unspecified organism Is this a current diagnosis for this admission?: Yes (3) UTI (urinary tract infection) due to urinary indwelling Anderson catheter Qualifiers: Indwelling urinary catheter type: indwelling urethral catheter Encounter type: initial encounter Qualified Code(s): T83.511A - Infection and inflammatory reaction due to indwelling urethral catheter, initial encounter; N39.0 - Urinary tract infection, site not specified Is this a current diagnosis for this admission?: Yes (4) Hypokalemia Is this a current diagnosis for this admission?: Yes (5) Obesity (BMI 30.0-34.9) Is this a current diagnosis for this admission?: Yes (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 Qualifiers: Congestive heart failure chronicity: chronic Qualified Code(s): I50.42 - Chronic combined systolic (congestive) and diastolic (congestive) heart failure Is this a current diagnosis for this admission?: Yes (7) Seizure disorder Is this a current diagnosis for this admission?: Yes (8) Anemia of chronic disease Is this a current diagnosis for this admission?: Yes (9) COPD (chronic obstructive pulmonary disease) Qualifiers: COPD type: unspecified COPD Qualified Code(s): J44.9 - Chronic obstructive pulmonary disease, unspecified Is this a current diagnosis for this admission?: Yes (10) Hiatal hernia Is this a current diagnosis for this admission?: Yes - Time Time Spent with patient: 25-34 minutes - Plan Summary Plan Summary: Continue gentle hydration. Discontinue vasopressors. Hypotension resolved. Continue antibiotics and follow cultures. Transfer to stepdown unit. Abnormal troponins probably related to hypotension due to sepsis, we will get cardiology opinion. I am going to resume his aspirin and likewise his phenobarbital, awaiting phenobarbital level.
[2016-11-26] MEDS ORDERED: PIPERACILLIN SODIUM/TAZOBACTAM 3.375 GM in NORMAL SALINE 100 ML IV ONE (10:00)
[2016-11-26 10:28] LABS: ANION GAP 8 (5-19); BLOOD UREA NITROGEN 20 mg/dL (7-20); CALCIUM 8.5 mg/dL (8.4-10.2); CARBON DIOXIDE 22 mmol/L (22-30); CHLORIDE 110 mmol/L (98-107); CREATININE RESULT 1.03 mg/dL (0.52-1.25); GLUCOSE 93 mg/dL (75-110); POTASSIUM 3.9 mmol/L (3.6-5.0); SODIUM 140.1 mmol/L (137-145)
[2016-11-26] MEDS: DOCUSATE SODIUM 100 MG CAPSULE PO SCH ×2 (10:48→21:35)
[2016-11-26] MEDS: ASPIRIN 325 MG TABLET PO SCH (11:09)
[2016-11-26] MEDS: PHENOBARBITAL 64.8 MG TABLET PO SCH ×2 (11:09→21:32)
[2016-11-26] MEDS: NORMAL SALINE 1000 ML 1,000 ML IV PRN ×2 (11:10→19:48)
[2016-11-26] MEDS: PIPERACILLIN SODIUM/TAZOBACTAM 3.375 GM in NORMAL SALINE 100 ML IV SCH ×2 (14:55→21:31)
--- NOTE | 2016-11-26 18:40 | XCELERA REPORT ---
[address] [address] Transthoracic Echocardiogram Report Name: JESENIA LÓPEZ Age: 76 yrs Gender: Male : 1940 Patient Status: Inpatient Patient Location: ICU^2A Study Date: 11/26/2016 10:27 AM Height: 68 in Weight: 182 lb BSA: 2.0 m2 Procedure: A complete two-dimensional transthoracic echocardiogram was performed (2D, M-mode, spectral and color flow Doppler). The study was technically difficult with many images being suboptimal in quality. Reason For Study: Hypotension Ordering Physician: SHERRIE BEARD Performed By: Karolyn August Interpretation Summary LV EF is 40% Left ventricular systolic function is mild to moderately reduced. Doppler measurements suggest pseudonormalized left ventricular relaxation, which is associated with grade II/IV or mild to moderate diastolic dysfunction There is inferior wall akinesis There is borderline concentric left ventricular hypertrophy. The left ventricle is grossly normal size. The right ventricular systolic function is normal. The left atrium is mildly dilated. The right atrium is normal in size There is a trace amount of mitral regurgitation There is no mitral valve stenosis. No aortic regurgitation is present. There is no aortic valve stenosis There is a trace or physiologic amount of tricuspid regurgitation Tricuspid regurgitation jet envelope not well defined to measure RV systolic pressure accurately. The aortic root is not well visualized but is probably normal size. The inferior vena cava appeared normal and decreased > 50% with respiration (RAP 5-10 mmHg) There is no pericardial effusion. MMode/2D Measurements & Calculations RVDd: 4.2 cm LVIDd: 5.3 cm FS: 18.7 % Ao root diam: 3.5 cm IVSd: 1.0 cm LVIDs: 4.3 cm EDV(Teich): 136.7 ml LVPWd: 1.0 cm ESV(Teich): 84.4 ml Ao root area: 9.4 cm2 EF(Teich): 38.3 % LA dimension: 4.3 cm Doppler Measurements & Calculations MV E max julia: MV P1/2t max julia: Ao V2 max: LV V1 max P.7 cm/sec 99.7 cm/sec 115.5 cm/sec 2.5 mmHg MV P1/2t: 58.9 msec Ao max PG: LV V1 max: 5.3 mmHg 79.0 cm/sec MVA(P1/2t): 3.7 cm2 MV dec slope: 495.6 cm/sec2 PA V2 max: TR max julia: 87.9 cm/sec 232.1 cm/sec PA max PG: TR max P.6 mmHg 3.1 mmHg Left Ventricle The left ventricle is grossly normal size. There is borderline concentric left ventricular hypertrophy. Left ventricular systolic function is mild to moderately reduced. LV EF is 40%. Doppler measurements suggest pseudonormalized left ventricular relaxation, which is associated with grade II/IV or mild to moderate diastolic dysfunction. There is inferior wall akinesis. Right Ventricle The right ventricle is grossly normal size. There is normal right ventricular wall thickness. The right ventricular systolic function is normal. Atria The right atrium is normal in size. The left atrium is mildly dilated. Interarterial septum not well visualized and not well dopplered. Cannot comment on ASD/PFO presence. Mitral Valve The mitral valve leaflets are sclerotic, but show no functional abnormalities. There is no mitral valve stenosis. There is a trace amount of mitral regurgitation. Aortic Valve The aortic valve is mildly calcified. There is no aortic valve stenosis. No aortic regurgitation is present. Tricuspid Valve The tricuspid valve is not well visualized secondary to technical limitations. There is no tricuspid stenosis. There is a trace or physiologic amount of tricuspid regurgitation. Tricuspid regurgitation jet envelope not well defined to measure RV systolic pressure accurately. Pulmonic Valve The pulmonic valve is not well visualized. Great Vessels The aortic root is not well visualized but is probably normal size. The inferior vena cava appeared normal and decreased > 50% with respiration (RAP 5-10 mmHg). Effusions There is no pericardial effusion. : SHERRIE BEARD > Sherrie Beard
--- NOTE | 2016-11-26 23:03 | PDOC CONSULTATION ---
Consultation Consult Date: 11/26/16 Attending physician:: DAQUAN GUADARRAMA Consult reason:: Hypotension and abn troponin I History of Present Illness Admission Date/PCP: 11/25/16 05:22 Patient complains of: Weakness History of Present Illness: JESENIA LÓPEZ is a 76 year old male [facility] resident of the [facility] in [facility] with chronic indwelling Anderson catheter due to bladder dysfunction, changed monthly, who presents to the emergency room for evaluation of above complaint. Anderson was exchanged earlier today due to discomfort and patient started to have bleeding. Initial plans were to send the patient home, but he spiked a fever to 102+ and decision was made to admit the patient. Subsequently began having problems with hypotension, necessitating IV fluid boluses along with Levophed drip. Has underlying combined systolic and diastolic congestive heart failure. Currently off Levophed drip. Patient has been discussed with emergency room physician who evaluated the patient. Hospitalized on a primary care provider's service March 28 of last year through April 07 of this year with final diagnoses including sepsis due to urinary tract infection, hypernatremia, rhabdomyolysis, acute encephalopathy, acute hypoxic respiratory failure, and COPD exacerbation. History and physical and discharge summary reviewed. THis history was reviewed. Patient's daughter were interviewed. This history was confirmed and also supplemented.. Patient this am denied chest pain or dyspnea. Past Medical History Cardiac Medical History: Reports: 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, Myocardial Infarction Denies: DVT, Pulmonary Embolism Pulmonary Medical History: Reports: Chronic Obstructive Pulmonary Disease (COPD) Denies: Tuberculosis EENT Medical History: Reports: Eyes - Glasses, Ears - Partial hearing loss Denies: Throat Neurological Medical History: Reports: Ischemic CVA, Seizures - Last episode April 2016 Denies: Hemorrhagic CVA GI Medical History: Reports: Hiatal Hernia Denies: Cirrhosis, Gastroesophageal Reflux Disease, Hepatitis, Peptic Ulcer Disease Musculoskeltal Medical History: Denies: Arthritis Skin Medical History: Reports: None Psychiatric Medical History: Denies: Alcohol Dependency, Bipolar Disorder, Dementia, Depression, General Anxiety Disorder, Substance Abuse, Tobacco Dependency Infectious Medical History: Denies: Hepatitis B, Hepatitis C Past Surgical History Past Surgical History: Reports: Coronary Stent Social History Lives with: [facility] Smoking Status: Former Smoker Frequency of Alcohol Use: None Hx Recreational Drug Use: No Drugs: None Hx Prescription Drug Abuse: No - Advance Directive Resuscitation Status: Do Not Resuscitate Family History Family History: Reviewed & Not Pertinent, Hypertension Parental Family History Reviewed: Yes Children Family History Reviewed: Yes Sibling(s) Family History Reviewed.: Yes Medication/Allergy Home Medications: Aspirin [Aspirin 325 mg Tablet] 325 mg PO DAILY 11/25/16 Atorvastatin Calcium [Lipitor 40 mg Tablet] 40 mg PO QHS 11/25/16 Cyanocobalamin (Vitamin B-12) [Vitamin B-12 Inj 1000 Mcg/1 ml Vial] 1,000 mcg IM .MONTHLY 11/25/16 Docusate Sodium [Colace 100 mg Capsule] 100 mg PO BID 11/25/16 Ergocalciferol (Vitamin D2) [Vitamin D2] 50,000 unit PO Q7D 11/25/16 Ferrous Sulfate [Feosol] 325 mg PO BID 11/25/16 Finasteride [Proscar 5 mg Tablet] 5 mg PO DAILY 11/25/16 Fluticasone Propionate [Flonase Nasal Zenda 50 Mcg/Zenda 16 gm] 1 spray NASL DAILY 11/25/16 Furosemide [Lasix 20 mg Tablet] 20 mg PO QAM 11/25/16 Lisinopril [Prinivil 2.5 mg Tablet] 2.5 mg PO DAILY 11/25/16 Multivit,Calc,Mins/Iron/Folic [Therapeutic-M Tablet] 1 each PO DAILY 11/25/16 Phenobarbital [Phenobarbital 64.8 Mg Tablet] 64.8 mg PO Q12 11/25/16 Quetiapine Fumarate [Seroquel 25 mg Tablet] 25 mg PO Q8 11/25/16 Sennosides [Senna Laxative] 2 tab PO DAILY 11/25/16 Tamsulosin HCl [Flomax] 0.4 mg PO DAILY 11/25/16 Umeclidinium Brm/Vilanterol Tr [Anoro Ellipta 62.5-25 Mcg INH] 1 puff IH DAILY 11/25/16 Allergies/Adverse Reactions: No Known Allergies Allergy (Verified 11/25/16 01:51) Review of Systems Constitutional: PRESENT: fatigue, fever(s). ABSENT: chills, headache(s), weight gain, weight loss Eyes: ABSENT: visual disturbances Ears: PRESENT: hearing changes - hearing loss Nose, Mouth, and Throat: ABSENT: as per HPI, headache(s), mouth pain, sore throat, vertigo, other Cardiovascular: PRESENT: dyspnea on exertion, edema. ABSENT: chest pain, orthropnea, palpitations Gastrointestinal: PRESENT: heartburn. ABSENT: abdominal pain, constipation, diarrhea, hematemesis, hematochezia, nausea, vomiting Genitourinary: PRESENT: difficulty urinating, other - indwelling catheter. ABSENT: dysuria, hematuria Musculoskeletal: ABSENT: deformity, joint swelling Integumentary: ABSENT: pruritus, rash, wounds Neurological: PRESENT: frequent falls, memory loss, weakness. ABSENT: abnormal gait, abnormal speech, confusion, dizziness, focal weakness, syncope Psychiatric: PRESENT: other - confusion. ABSENT: anxiety, depression, homidical ideation, suicidal ideation Hematologic/Lymphatic: ABSENT: easy bleeding, easy bruising Physical Exam Vital Signs: Temp Pulse Resp BP Pulse Ox 99.0 F 95 21 H 147/67 H 95 11/26/16 20:26 11/26/16 20:26 11/26/16 20:26 11/26/16 20:26 11/26/16 20:26 Intake & Output 11/25/16 11/26/16 11/27/16 06:59 06:59 06:59 Intake Total 4567 810 Output Total 150 2465 550 Balance -150 2102 260 Weight 81.8 kg 82.7 kg General appearance: PRESENT: no acute distress, well-nourished Head exam: PRESENT: atraumatic, normocephalic Eye exam: PRESENT: conjunctiva pink, EOMI, PERRLA. ABSENT: scleral icterus Ear exam: PRESENT: normal external ear exam Mouth exam: PRESENT: moist, neck supple, tongue midline Throat exam: ABSENT: post pharyngeal erythema, tonsillar erythema, tonsillar exudate, tonsillogmegaly, other Neck exam: ABSENT: carotid bruit, JVD, lymphadenopathy, thyromegaly Respiratory exam: PRESENT: clear to auscultation maykel. ABSENT: rales, rhonchi, wheezes Cardiovascular exam: PRESENT: RRR, +S1, +S2, systolic murmur - 1-2/6 ejection aortic area. ABSENT: diastolic murmur, rubs Pulses: PRESENT: normal carotid pulses, normal radial pulses, normal dorsalis pedis pul GI/Abdominal exam: PRESENT: normal bowel sounds, soft. ABSENT: distended, guarding, mass, organolmegaly, rebound, tenderness Rectal exam: PRESENT: deferred Gentrourinary exam: PRESENT: indwelling catheter. ABSENT: ecchymosis, erythema , lacerations, urethral discharge, other Extremities exam: PRESENT: full ROM. ABSENT: calf tenderness, clubbing, pedal edema Musculoskeletal exam: PRESENT: ambulatory. ABSENT: deformity, dislocation, full ROM, normal inspection, tenderness, other Neurological exam: PRESENT: alert, awake, oriented to person, oriented to place , oriented to time, oriented to situation, CN II-XII grossly intact. ABSENT: motor sensory deficit Psychiatric exam: PRESENT: appropriate affect, normal mood. ABSENT: homicidal ideation, suicidal ideation Focused psych exam: PRESENT: restlessness. ABSENT: euphoric, flight of ideas, paranoid, other Skin exam: PRESENT: dry, intact, warm. ABSENT: cyanosis, rash Results Laboratory Results: 11/26/16 06:49 11/26/16 09:40 11/26/16 11/26/16 11/26/16 06:49 06:49 09:40 WBC 7.1 RBC 3.47 L Hgb 10.7 L Hct 31.0 L MCV 89 MCH 31.0 MCHC 34.6 RDW 14.7 H Plt Count 115 L Seg Neutrophils % 85.6 H Lymphocytes % 7.7 L Monocytes % 6.3 Eosinophils % 0.2 Basophils % 0.2 Absolute Neutrophils 6.1 Absolute Lymphocytes 0.5 Absolute Monocytes 0.4 Absolute Eosinophils 0.0 Absolute Basophils 0.0 Sodium 140.9 140.1 Potassium 4.2 D 3.9 Chloride 109 H 110 H Carbon Dioxide 25 22 Anion Gap 7 8 BUN 20 20 Creatinine 1.07 1.03 Est GFR ( Amer) > 60 > 60 Est GFR (Non-Af Amer) > 60 > 60 Glucose 104 93 Calcium 8.5 8.5 11/25/16 11/25/16 11/26/16 05:40 21:04 03:02 Troponin I 0.080 0.187 0.155 NT-Pro-B Natriuret Pep 6150 H 11/26/16 09:40 Troponin I 0.105 NT-Pro-B Natriuret Pep EKG Comments: SR, old inferior DC, VPC, no acute ST-T changes Impressions: Chest X-Ray 11/25/16 01:19 IMPRESSION: Mild chronic interstitial markings and moderate cardiac enlargement. Differential diagnosis includes chronic interstitial lung disease , mild CHF, and/or atypical pneumonitis. Assessment & Plan - Diagnosis (1) Troponin level elevated Is this a current diagnosis for this admission?: Yes (2) Hypotension Qualifiers: Hypotension type: unspecified hypotension type Qualified Code(s): I95.9 - Hypotension, unspecified Is this a current diagnosis for this admission?: Yes (3) Sepsis due to urinary tract infection Is this a current diagnosis for this admission?: Yes (4) Systolic dysfunction, left ventricle Is this a current diagnosis for this admission?: Yes - Notes Notes: Hypotesion: improved, patient off levophed. Tropnin I elevation sec to sepsis and hypotension. Troponin I elevation: Most likely related to sepsis and hypotension. Continue antibiotic therapy. Hypotension: Currently off Levophed drip. Most likely was related to sepsis and volume depletion. Sepsis due to urinary tract infection: Currently is stable. Systolic dysfunction: 2D echo shows mildly depressed LVEF. Will optimize therapy gradually. Dr. Leung symmetric cover from tomorrow. - Time Time Spent: 30 to 50 Minutes - CODE STATUS : was discussed, patient remains DO NOT RESUSCITATE. Surrogate decision-maker patient's daughter. Multiple medical problems were addressed. More than 50% of the time spent coordinating care, discussing management plans with involved caregivers. Management plans discussed with involved personnels. Medical decision making was of moderate to high complexity, patient's has multiple comorbidities. Medications reviewed and adjusted accordingly: Yes
--- NOTE | 2016-11-27 00:03 | EKG REPORT ---
SEVERITY:- BORDERLINE ECG - SINUS RHYTHM VENTRICULAR PREMATURE COMPLEX CONSIDER INFERIOR INFARCT BORDERLINE T ABNORMALITIES, ANT-LAT LEADS : Confirmed by: Sherrie Nunn 27-Nov-2016 00:03:12
--- NOTE | 2016-11-27 00:04 | EKG REPORT ---
SEVERITY:- ABNORMAL ECG - SINUS RHYTHM INFERIOR INFARCT, AGE INDETERMINATE CONSIDER POSTERIOR WALL INVOLVEMENT : Confirmed by: Sherrie Nunn 27-Nov-2016 00:03:27
[2016-11-27] MEDS: PIPERACILLIN SODIUM/TAZOBACTAM 3.375 GM in NORMAL SALINE 100 ML IV SCH ×4 (04:39→22:24)
[2016-11-27] MEDS: IPRATROPIUM/ALBUTEROL 0.5-2.5 MG/3 ML AMPUL NEB PRN ×2 (04:46→10:30)
[2016-11-27 05:06] LABS: ANION GAP 10 (5-19); BLOOD UREA NITROGEN 15 mg/dL (7-20); CALCIUM 8.7 mg/dL (8.4-10.2); CARBON DIOXIDE 23 mmol/L (22-30); CHLORIDE 107 mmol/L (98-107); CREATININE RESULT 0.92 mg/dL (0.52-1.25); GLUCOSE 125 mg/dL (75-110)
[2016-11-27] MEDS: NORMAL SALINE 1000 ML 1,000 ML IV PRN (06:59)
[2016-11-27] MEDS ORDERED: NORMAL SALINE 1000 ML 1,000 ML IV PRN (09:52)
--- NOTE | 2016-11-27 09:57 | PDOC PROGRESS REPORT ---
Subjective Progress Note for:: 11/27/16 Subjective:: Patient reports small loose bowel movement. Noted with fever last night. Denies any shortness of breath. Patient reportedly been congested for long time due to long history of smoking. Denies feeling shortness of breath. No chest pain, nausea or vomiting. Physical Exam Vital Signs: Temp Pulse Resp BP Pulse Ox 101.6 F H 99 24 H 124/62 94 11/27/16 07:55 11/27/16 07:55 11/27/16 07:55 11/27/16 07:55 11/27/16 07:55 Intake & Output 11/26/16 11/27/16 11/28/16 06:59 06:59 06:59 Intake Total 4567 2410 Output Total 2465 1950 Balance 2102 460 Weight 82.7 kg 82.8 kg General appearance: PRESENT: no acute distress, cooperative Head exam: PRESENT: normocephalic Eye exam: PRESENT: EOMI Mouth exam: PRESENT: moist, neck supple Neck exam: ABSENT: JVD Respiratory exam: PRESENT: rhonchi - Bilateral, unlabored. ABSENT: wheezes Cardiovascular exam: PRESENT: RRR. ABSENT: gallop GI/Abdominal exam: PRESENT: soft. ABSENT: distended Extremities exam: ABSENT: pedal edema Neurological exam: PRESENT: alert, awake Focused psych exam: ABSENT: restlessness Skin exam: PRESENT: dry, warm. ABSENT: cyanosis Results Laboratory Results: 11/26/16 06:49 11/27/16 04:31 11/26/16 11/27/16 09:40 04:31 Sodium 140.1 140.0 Potassium 3.9 4.0 Chloride 110 H 107 Carbon Dioxide 22 23 Anion Gap 8 10 BUN 20 15 Creatinine 1.03 0.92 Est GFR ( Amer) > 60 > 60 Est GFR (Non-Af Amer) > 60 > 60 Glucose 93 125 H Calcium 8.5 8.7 11/25/16 11/25/16 11/26/16 05:40 21:04 03:02 Troponin I 0.080 0.187 0.155 NT-Pro-B Natriuret Pep 6150 H 11/26/16 09:40 Troponin I 0.105 NT-Pro-B Natriuret Pep Impressions: Chest X-Ray 11/25/16 01:19 IMPRESSION: Mild chronic interstitial markings and moderate cardiac enlargement. Differential diagnosis includes chronic interstitial lung disease , mild CHF, and/or atypical pneumonitis. Assessment & Plan - Diagnosis (1) Hypotension Qualifiers: Hypotension type: unspecified hypotension type Qualified Code(s): I95.9 - Hypotension, unspecified Is this a current diagnosis for this admission?: Yes (2) Sepsis Qualifiers: Sepsis type: sepsis due to unspecified organism Qualified Code(s): A41.9 - Sepsis, unspecified organism Is this a current diagnosis for this admission?: Yes (3) UTI (urinary tract infection) due to urinary indwelling Anderson catheter Qualifiers: Indwelling urinary catheter type: indwelling urethral catheter Encounter type: initial encounter Qualified Code(s): T83.511A - Infection and inflammatory reaction due to indwelling urethral catheter, initial encounter; N39.0 - Urinary tract infection, site not specified Is this a current diagnosis for this admission?: Yes (4) Hypokalemia Is this a current diagnosis for this admission?: Yes (5) Obesity (BMI 30.0-34.9) Is this a current diagnosis for this admission?: Yes (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 Qualifiers: Congestive heart failure chronicity: chronic Qualified Code(s): I50.42 - Chronic combined systolic (congestive) and diastolic (congestive) heart failure Is this a current diagnosis for this admission?: Yes (7) Seizure disorder Is this a current diagnosis for this admission?: Yes (8) Anemia of chronic disease Is this a current diagnosis for this admission?: Yes (9) COPD (chronic obstructive pulmonary disease) Qualifiers: COPD type: unspecified COPD Qualified Code(s): J44.9 - Chronic obstructive pulmonary disease, unspecified Is this a current diagnosis for this admission?: Yes (10) Hiatal hernia Is this a current diagnosis for this admission?: Yes - Time Time Spent with patient: 25-34 minutes - Plan Summary Plan Summary: We will begin Flagyl and lactobacillus. Continue Zosyn and follow cultures. Decrease IV fluid. Begin physical therapy. Continue supportive care. Check stool for Clostridium difficile toxin.
[2016-11-27] MEDS: ASPIRIN 325 MG TABLET PO SCH (10:11)
[2016-11-27] MEDS: PHENOBARBITAL 64.8 MG TABLET PO SCH ×2 (10:11→22:24)
[2016-11-27] MEDS: LACTOBACILLUS ACIDOPHILUS 250 MG TAB PO SCH ×2 (10:12→18:32)
[2016-11-27] MEDS: DOCUSATE SODIUM 100 MG CAPSULE PO SCH ×2 (10:16→18:32)
--- NOTE | 2016-11-27 11:01 | RADIOLOGY REPORT (SQ) ---
EXAM DESCRIPTION: CHEST SINGLE VIEW COMPLETED DATE/TIME: 11/27/2016 10:42 am REASON FOR STUDY: CHF /Pneumonia COMPARISON: 11/25/2016 NUMBER OF VIEWS: One view. TECHNIQUE: Single frontal radiographic image of the chest acquired. LIMITATIONS: None. FINDINGS: LUNGS AND PLEURA: Diffuse airspace disease in the right lung. Left lung is relatively karo ar. No large effusions. MEDIASTINUM AND HEART: Stable heart size and mediastinal structures. BONY STRUCTURES: No acute findings. HARDWARE: None. OTHER: No other significant finding. IMPRESSION: Right upper and lower lobe pneumonia. TECHNICAL DOCUMENTATION: JOB ID: [id number]
[2016-11-27] MEDS ORDERED: LEVALBUTEROL HCL NEB 1.25 MG/3 ML AMPUL NEB PRN (15:28)
[2016-11-27] MEDS ORDERED: PREDNISONE 20 MG TABLET PO ONE (15:30)
--- NOTE | 2016-11-27 15:32 | PROGRESS NOTE E ---
Progress Note NAME: JESENIA LÓPEZ : 1940 AGE: 76Y DATE: 11/27/2016 ROOM: 409 SUBJECTIVE: The patient appears to be visibly short of breath and is wheezing. He denies any chest pain. He does have some orthopnea but no PND. He has no leg edema. He denies chest pain or discomfort. The patient is off the Levophed drip, and his blood pressure is stable. His echocardiography showed an LV ejection fraction of 40% which is mild to moderately reduced. There are no TIA or CVA symptoms. The patient is off the Levophed. OBJECTIVE: GENERAL: On examination, the patient appears to be mildly short of breath but there is no PND. There is orthopnea. There is no leg edema. He is well built and well nourished but appears to be mildly short of breath at present with wheezing. VITAL SIGNS: His temperature is 101.6. His pulse is 99 beats per minute. Blood pressure is 124/62. Respirations are 24. O2 saturations are 94% on room air. HEAD: Atraumatic/normocephalic. EYES: Pupils are equal, round, regular, reactive to light and accommodation. External ocular movements are normal. There is no scleral icterus. There is no conjunctival pallor. EARS: The patient has partial hearing loss. NOSE AND THROAT: Negative. NECK: Supple. There is no JVD. Carotids are equal. There is no bruit. There is no goiter. There is no lymphadenopathy. Trachea is central. LUNGS: Show bilateral wheezing and dry coarse crackles of pneumonia in the right upper lobe and right lower lobe. The left lung has no rales. There are no rales of CHF. HEART: S1, S2 is heard. S1 is of variable intensity. There is no S3 gallop. There is no S4 gallop. There is a systolic murmur in the left sternal border and the apex. There is no rub. ABDOMEN: Soft, nontender. There is no hepatosplenomegaly. Bowel sounds are well heard. EXTREMITIES: Femorals are diminished. Leg pulses are diminished. There is no pedal edema. There is no DVT or cellulitis. There is no calf tenderness. CENTRAL NERVOUS SYSTEM: The patient is conscious, awake, but seems to be confused due to hearing loss which is partial. There are no focal deficits. PSYCHIATRIC: He has appropriate affect and normal mood. He does not appear to be agitated. But the patient, because of his partial hearing loss, we cannot do a focused psychiatric exam on him. DIAGNOSTIC DATA: His EKG shows a lot of artifact but cannot exclude atrial fibrillation with a ventricular response of 107 beats per minute. His chest x-ray shows right upper lobe and right upper lobe pneumonia. The left lung is relatively clear with no large effusions lesions. There is a stable heart size and mediastinal structures. There is no evidence of PE. The patient's sodium is 140, the potassium is 4.0, chloride is 107. CO2 is 23. The patient's BUN is 15. Creatinine is 0.92 and GFR is greater than 60. His glucose is 125 and his calcium is 8.7. IMPRESSION: 1. RIGHT UPPER LOBE AND RIGHT LOWER LOBE PNEUMONIA. 2. ACUTE EXACERBATION OF COPD. 3. ELEVATED TROPONIN-I LEVEL DUE TO SEPSIS AND HYPOTENSION. 4. HYPOTENSION WHICH IS NOW RESOLVED. THE PATIENT IS OFF PRESSORS. 5. MILD CARDIOMYOPATHY, AT PRESENT COMPENSATED WITH NO EVIDENCE OF HEART FAILURE. 6. HISTORY OF MYOCARDIAL INFARCTION AND CAD. 7. HISTORY OF ISCHEMIC CVA. 8. HISTORY OF SEIZURES. 9. HISTORY OF ANEMIA. RECOMMENDATIONS: Continue IV fluids. Continue antibiotics. Continue respiratory treatments. At present, the patient, in spite of his LV ejection fraction being 40%, is not in decompensated heart failure. Would also continue his aspirin. Continue his phenobarbital. He is on 5% metronidazole. Note that 30 minutes were spent on this patient with more than 50% of the time spent on direct patient care. Decision making was moderate to high complexity medically. Will follow with you. The patient is a DNR. He states that his daughter, *------*, is his surrogate healthcare decision maker. Will follow with you. Discussed with the hospitalist taking care of the patient the EKG findings, and we will repeat the EKG to see if there is really atrial fibrillation. Will need to make a decision about anticoagulation if it is indeed atrial fibrillation. DICTATING PHYSICIAN: AYAKA THOMAS M.D. [id number] PHY#: [id number] ID: [id number] JOB#: [id number] ACCT: [id number] cc:AYAKA THOMAS M.D. >
[2016-11-27] MEDS: METRONIDAZOLE 500 MG TABLET PO SCH ×2 (16:03→18:32)
[2016-11-27] MEDS: LEVALBUTEROL HCL NEB 1.25 MG/3 ML AMPUL NEB SCH (19:30)
[2016-11-27] MEDS: IPRATROPIUM BROMIDE 0.02% NEB 0.5 MG/2.5 ML AMPUL NEB SCH (19:31)
--- NOTE | 2016-11-27 21:06 | EKG REPORT ---
SEVERITY:- ABNORMAL ECG - ATRIAL FIBRILLATION PAIRED VENTRICULAR PREMATURE COMPLEXES : Confirmed by: Sherrie Nunn 27-Nov-2016 21:05:52
[2016-11-28] MEDS: METRONIDAZOLE 500 MG TABLET PO SCH ×4 (01:06→17:09)
[2016-11-28] MEDS: LEVALBUTEROL HCL NEB 1.25 MG/3 ML AMPUL NEB SCH ×4 (01:57→19:57)
[2016-11-28] MEDS: IPRATROPIUM BROMIDE 0.02% NEB 0.5 MG/2.5 ML AMPUL NEB SCH ×4 (01:57→19:57)
[2016-11-28] MEDS: PIPERACILLIN SODIUM/TAZOBACTAM 3.375 GM in NORMAL SALINE 100 ML IV SCH ×4 (03:01→21:52)
[2016-11-28] MEDS: PHENOBARBITAL 64.8 MG TABLET PO SCH ×2 (09:33→21:52)
[2016-11-28] MEDS: ASPIRIN 325 MG TABLET PO SCH (09:33)
[2016-11-28] MEDS: DOCUSATE SODIUM 100 MG CAPSULE PO SCH ×2 (09:33→17:09)
[2016-11-28] MEDS: LACTOBACILLUS ACIDOPHILUS 250 MG TAB PO SCH ×2 (09:33→17:09)
--- NOTE | 2016-11-28 13:57 | PROGRESS NOTE E ---
Progress Note NAME: JESENIA LÓPEZ : 1940 AGE: 76Y DATE: 11/28/2016 ROOM: 409 SUBJECTIVE: The patient does not appear to be short of breath. He has no PND, orthopnea, or chest pain. His EKG shows that the prior EKG's were artifacts present and not atrial fibrillation. Today's EKG shows he is in sinus rhythm. There is no leg edema. There are no TIA or CVA. The patient is not on any pressors now. OBJECTIVE: GENERAL: On examination, the patient does not appear to be short of breath. There is no PND. There is no orthopnea. There is no leg edema. He is well built and well nourished, appears to be comfortable and not short of breath. VITAL SIGNS: He is afebrile with a temperature of 98.2 degrees Fahrenheit, his pulse is 68 beats per minute, the monitor shows that there are some occasional PVC's. His respirations are 17 per minute, O2 sats are 96% on room air. His blood pressure is 107/54. HEAD: Atraumatic/normocephalic. EYES: Pupils are equal, round, regular, reactive to light and accommodation. Extraocular movements are normal. There is no scleral icterus. There is no conjunctival pallor. EARS: The patient has partial hearing loss, but, when spoken to loudly, understands. NOSE AND THROAT: Negative. NECK: Supple. There is no JVD. Carotids are equal. There is no bruit. There is no goiter. There is no lymphadenopathy. Trachea is central. LUNGS: There is no wheezing. There are a few crackles of pneumonia in the right upper lobe and right lower lobe, which is much improved compared to yesterday. There are no rales of CHF. The left lung is clear. The patient has diminished air entry and prolonged expiration on auscultation. On percussion, there is hyperresonance. HEART: S1, S2 is heard. S1 is of normal intensity. There is no S3 gallop. There is no S4 gallop. There is a systolic murmur in the left sternal border and the apex. There is no rub. ABDOMEN: Soft and nontender. There is no hepatosplenomegaly. Bowel sounds are well heard. EXTREMITIES: Femorals are diminished. Leg pulses are diminished. There is no pedal edema. There is no DVT or cellulitis. There is no calf tenderness. There is no cyanosis or clubbing. Capillary refill is normal. CENTRAL NERVOUS SYSTEM: The patient is conscious, appears to be awake, alert, oriented x3 with no focal deficits. PSYCHIATRIC: He has appropriate affect and mood. He does not appear to be agitated. His judgment and insight seem to be intact. INPUT/OUTPUT: The patient's 24-hour intake is 2,956; output is 2,900. DIAGNOSTIC DATA: His EKG shows sinus rhythm with occasional PVC's. Cannot exclude old inferoposterior ME. There are minor nonspecific T-wave abnormalities in the lateral leads. There is borderline prolonged QT interval. His labs show a glucose of 121 and his troponin-I has come down to 0.24. IMPRESSION: 1. THE PATIENT'S RIGHT UPPER LOBE AND RIGHT LOWER LOBE PNEUMONIA IMPROVED MUCH. 2. ACUTE EXACERBATION OF COPD HAS RESOLVED. PATIENT BACK TO BASELINE COPD, AND THE PATIENT IS BEING TREATED WITH THE ANTIBIOTICS, STEROIDS, AND BRONCHODILATORS. 3. ELEVATED TROPONIN-I LEVEL SECONDARY TO SEPSIS AND HYPOTENSION. NOW, TROPONIN HAS TRENDED DOWN. 4. HYPOTENSION WHICH IS NOW RESOLVED. THE PATIENT IS OFF PRESSORS AND HAS GOOD BLOOD PRESSURE. 5. MILD CARDIOMYOPATHY, AT PRESENT COMPENSATED WITH NO EVIDENCE OF HEART FAILURE. 6. HISTORY OF MYOCARDIAL INFARCTION AND CORONARY ARTERY DISEASE. PATIENT WITHOUT ANY ANGINAL SYMPTOMS. 7. HISTORY OF ISCHEMIC CVA WITH NO RESIDUAL EFFECTS. 8. HISTORY OF SEIZURES, NONE THIS ADMISSION. 9. HISTORY OF ANEMIA. RECOMMENDATIONS: Continue IV fluids. Continue antibiotics. Continue respiratory treatments. Would recommend to continue him on his antibiotics, continue prednisone and taper that down. Continue aspirin for now. Later, would start the patient on anti-CAD medication for further improvement in his blood pressure. Note that the patient is a DNR and now, he states that his daughter, Carmelina, is his surrogate healthcare decision maker. Note that 25 minutes were spent on this patient with more than 50% of that time spent in direct patient care. His medications have been reviewed. Will get a chest x-ray in the morning. The medical decision making was of moderate complexity. Also start the patient on anti-CAD medication and also probably DIANE inhibitors. Thanking you. DICTATING PHYSICIAN: AYAKA THOMAS M.D. [id number] PHY#: [id number] ID: [id number] JOB#: [id number] ACCT: [id number] cc: >
--- NOTE | 2016-11-28 22:02 | EKG REPORT ---
SEVERITY:- ABNORMAL ECG - SINUS RHYTHM MULTIFORM VENTRICULAR PREMATURE COMPLEXES CONSIDER INFERIOR INFARCT PROBABLE POSTERIOR INFARCT NONSPECIFIC T ABNORMALITIES, LATERAL LEADS BORDERLINE PROLONGED QT INTERVAL : Confirmed by: Sherrie Nunn 28-Nov-2016 22:02:04
[2016-11-29] MEDS: METRONIDAZOLE 500 MG TABLET PO SCH ×2 (00:24→05:44)
[2016-11-29] MEDS: IPRATROPIUM BROMIDE 0.02% NEB 0.5 MG/2.5 ML AMPUL NEB SCH ×4 (01:50→20:15)
[2016-11-29] MEDS: LEVALBUTEROL HCL NEB 1.25 MG/3 ML AMPUL NEB SCH ×4 (01:50→20:15)
[2016-11-29] MEDS: PIPERACILLIN SODIUM/TAZOBACTAM 3.375 GM in NORMAL SALINE 100 ML IV SCH ×2 (03:13→09:45)
[2016-11-29] MEDS: ASPIRIN 325 MG TABLET PO SCH (09:45)
[2016-11-29] MEDS: DOCUSATE SODIUM 100 MG CAPSULE PO SCH ×2 (09:46→20:01)
[2016-11-29] MEDS: PHENOBARBITAL 64.8 MG TABLET PO SCH ×2 (09:46→22:25)
[2016-11-29] MEDS: LACTOBACILLUS ACIDOPHILUS 250 MG TAB PO SCH ×2 (09:46→20:01)
[2016-11-29] MEDS ORDERED: NORMAL SALINE 1000 ML 1,000 ML IV PRN (11:39)
--- NOTE | 2016-11-29 11:48 | PDOC PROGRESS REPORT ---
Subjective Progress Note for:: 11/29/16 Subjective:: Denies having any diarrhea, shortness of breath, chest pain, nausea or vomiting , nor sweating. He started to develop some wheezing. No noted temperature spikes nor chills. Appetite seems to be fair. Physical Exam Vital Signs: Temp Pulse Resp BP Pulse Ox 98.5 F 86 17 124/70 96 11/29/16 07:21 11/29/16 07:21 11/29/16 07:21 11/29/16 07:21 11/29/16 07:21 Intake & Output 11/28/16 11/29/16 11/30/16 06:59 06:59 06:59 Intake Total 2956 2127 Output Total 2900 2100 Balance 56 27 Weight 83.8 kg 84.7 kg General appearance: PRESENT: no acute distress, cooperative, obese Head exam: PRESENT: normocephalic Eye exam: PRESENT: EOMI Mouth exam: PRESENT: moist, neck supple Neck exam: ABSENT: JVD Respiratory exam: PRESENT: rhonchi - Few bilateral, wheezes - Mild bilateral Cardiovascular exam: PRESENT: RRR. ABSENT: gallop GI/Abdominal exam: PRESENT: soft. ABSENT: distended, tenderness Extremities exam: PRESENT: other - Trace lower extremity edema Neurological exam: PRESENT: alert, awake Psychiatric exam: ABSENT: agitated Focused psych exam: ABSENT: restlessness Skin exam: PRESENT: dry, warm. ABSENT: cyanosis Results Laboratory Results: 11/26/16 06:49 11/27/16 04:31 11/25/16 15:30 Sputum Gram Stain - Final 11/25/16 15:30 Sputum Sputum Culture - Final NORMAL BRAEDEN 11/25/16 11/25/16 11/26/16 05:40 21:04 03:02 Troponin I 0.080 0.187 0.155 NT-Pro-B Natriuret Pep 6150 H 11/26/16 11/28/16 09:40 04:10 Troponin I 0.105 0.024 NT-Pro-B Natriuret Pep Impressions: Chest X-Ray 11/27/16 00:00 IMPRESSION: Right upper and lower lobe pneumonia. Assessment & Plan - Diagnosis (1) PNA (pneumonia) Qualifiers: Pneumonia type: due to unspecified organism Laterality: right Lung location: unspecified part of lung Qualified Code(s): J18.9 - Pneumonia, unspecified organism Is this a current diagnosis for this admission?: Yes (2) Hypotension Qualifiers: Hypotension type: unspecified hypotension type Qualified Code(s): I95.9 - Hypotension, unspecified Is this a current diagnosis for this admission?: Yes (3) Sepsis Qualifiers: Sepsis type: sepsis due to unspecified organism Qualified Code(s): A41.9 - Sepsis, unspecified organism Is this a current diagnosis for this admission?: Yes (4) UTI (urinary tract infection) due to urinary indwelling Anderson catheter Qualifiers: Indwelling urinary catheter type: indwelling urethral catheter Encounter type: initial encounter Qualified Code(s): T83.511A - Infection and inflammatory reaction due to indwelling urethral catheter, initial encounter; N39.0 - Urinary tract infection, site not specified Is this a current diagnosis for this admission?: Yes (5) Hypokalemia Is this a current diagnosis for this admission?: Yes (6) Obesity (BMI 30.0-34.9) Is this a current diagnosis for this admission?: Yes (7) Combined systolic and diastolic congestive heart failure Qualifiers: Congestive heart failure chronicity: chronic Qualified Code(s): I50.42 - Chronic combined systolic (congestive) and diastolic (congestive) heart failure Is this a current diagnosis for this admission?: Yes (8) Seizure disorder Is this a current diagnosis for this admission?: Yes (9) Anemia of chronic disease Is this a current diagnosis for this admission?: Yes (10) COPD (chronic obstructive pulmonary disease) Qualifiers: COPD type: unspecified COPD Qualified Code(s): J44.9 - Chronic obstructive pulmonary disease, unspecified Is this a current diagnosis for this admission?: Yes (11) Hiatal hernia Is this a current diagnosis for this admission?: Yes - Time Time Spent with patient: 25-34 minutes - Plan Summary Plan Summary: Begin physical therapy, discontinue Flagyl but keep the lactobacillus. We will resume steroids and continue bronchodilators. IV fluids to KVO. Try 1 dose of intravenous Lasix. Transition to oral antibiotics.
[2016-11-29] MEDS ORDERED: AMOXICILLIN TR/POT CLAVULANATE 500-125 MG TAB PO ONE (12:30)
--- NOTE | 2016-11-29 22:09 | PROGRESS NOTE E ---
Progress Note NAME: JESENIA LÓPEZ : 1940 AGE: 76Y DATE: 11/29/2016 ROOM: 409 SUBJECTIVE: Note that the patient today has started wheezing and appears short of breath. He has orthopnea. The patient is hard of hearing, but states that he has no chest pain. *------* cough, but he does express that he he is short of breath, which seems to be moderate. There is no arrhythmia seen on the monitor. There is no TIA or CVA symptoms. There is no pedal edema. OBJECTIVE: GENERAL: On examination, the patient appears to be short of breath. He is well-built and well-nourished, appears to be in moderate distress due to respiratory problem. VITAL SIGNS: He is afebrile with a temperature of 98.6 degrees Fahrenheit. Pulse is 93 beats per minute. Blood pressure 108/61. Respirations are 16 per minute. O2 sats are 99% on room air. HEENT: Head is atraumatic, normocephalic. Eyes: Pupils are equal, round, regular. Reactive to light and accommodation. Extraocular movements are normal. There is no conjunctival pallor. There is no scleral icterus. Ears: The patient has partial hearing loss, but when spoken to loudly understands. Nose and throat are negative. NECK: Supple. There is no JVD. Carotids are equal. There is no bruit. There is no lymphadenopathy. There is no goiter. Trachea is central. LUNGS: There is bilateral wheezing present and also diminished air entry to prolonged expiration, also dry crackles in the right upper lobe and right lower lobe zones of the lung. On percussion, there is hyperresonance. There are no rales or CHF. CARDIOVASCULAR: S1 and S2 is heard. S1 is of normal intensity. There is no S3 gallop. There is no S4 gallop. There is systolic murmur in the left sternal border at the apex. There is no rub. ABDOMEN: Soft, nontender. There is no hepatosplenomegaly. Bowel sounds are well heard. EXTREMITIES: Femorals are diminished. Leg pulses are diminished. There is no pedal edema. There is no DVT or cellulitis. There is no calf tenderness. There is no cyanosis or clubbing. Capillary refill is normal. CENTRAL NERVOUS SYSTEM: The patient is conscious. Appears to be awake with no focal deficits. PSYCHIATRIC: He is a little agitated due to his respiratory distress, but is not violent. His 24 hour intake is 2127 mL, output is 2100 mL. His glucose is 81. ASSESSMENT: 1. ACUTE EXACERBATION OF COPD WITH MOST LIKELY ACUTE ASTHMATIC BRONCHITIS WITH WHEEZING. 2. RIGHT UPPER LOBE AND RIGHT LOWER LOBE PNEUMONIA. 3. ELEVATED TROPONIN SECONDARY TO SEPSIS AND HYPOTENSION, NOW BLOOD PRESSURE IS NORMAL. The patient's troponin is trended down. 4. HYPOTENSION, HAS RESOLVED. The patient is not on pressors. 5. MILD CARDIOMYOPATHY, AT PRESENT COMPENSATED WITH NO EVIDENCE OF HEART FAILURE. 6. HISTORY OF MYOCARDIAL INFARCTION AND CORONARY ARTERY DISEASE. THE PATIENT WITHOUT ANY ANGINAL SYMPTOMS. 7. HISTORY OF ISCHEMIC CVA WITH NO RESIDUAL EFFECTS. 8. HISTORY OF SEIZURES, NONE ON THIS ADMISSION. 9. HISTORY OF *------*. Continue IV fluids. Continue antibiotics. Continue respiratory treatments. Note that the patient was given 1 dose of steroids, now he is getting regular steroids at intervals, which will be later tapered down. Note 25 minutes spent on this patient with more than 50% of the time spent on direct patient care. The patient's medications have been reviewed. Would recommend continuing his current treatment with antibiotics, steroids and rest of the nebulizer treatments. Would not start the patient on beta-blockers at present, in view of the patient's wheezing. I discussed the case with the hospitalist. Although the patient's respiratory status is degraded, his cardiac status seems to be stable and hence there is moderately complex medical decision-making involved in the case. Discussed the case with hospitalist and nurse taking care of the patient. We will follow with you. DICTATING PHYSICIAN: AYAKA THOMAS M.D. [id number] MARIY#: [id number] ID: [id number] JOB#: [id number] ACCT: [id number] cc: >
[2016-11-29] MEDS: AMOXICILLIN TR/POT CLAVULANATE 500-125 MG TAB PO SCH (22:25)
[2016-11-30] MEDS: LEVALBUTEROL HCL NEB 1.25 MG/3 ML AMPUL NEB SCH ×3 (02:28→14:26)
[2016-11-30] MEDS: IPRATROPIUM BROMIDE 0.02% NEB 0.5 MG/2.5 ML AMPUL NEB SCH ×3 (02:28→14:26)
[2016-11-30] MEDS: AMOXICILLIN TR/POT CLAVULANATE 500-125 MG TAB PO SCH (05:24)
[2016-11-30] MEDS: ASPIRIN 325 MG TABLET PO SCH (09:39)
[2016-11-30] MEDS: PHENOBARBITAL 64.8 MG TABLET PO SCH (09:39)
[2016-11-30] MEDS: DOCUSATE SODIUM 100 MG CAPSULE PO SCH (09:39)
[2016-11-30] MEDS: LACTOBACILLUS ACIDOPHILUS 250 MG TAB PO SCH (09:40)
[2016-11-30] MEDS ORDERED: PREDNISONE 20 MG TABLET PO SCH (10:00)
[2016-11-30 11:58] VITALS: BP 123/61
--- NOTE | 2016-11-30 12:13 | PDOC DISCHARGE SUMMARY ---
General - Admit/Disc Date/PCP Admission Date/Primary Care Provider: 11/25/16 05:22 Discharge Date: 11/30/16 - Discharge Diagnosis (1) Septic shock Is this a current diagnosis for this admission?: Yes Summary: The patient had hypotension as well as a urinary tract infection when he presented. He also developed a pneumonia. Patient has had resolution of symptoms. (2) UTI (urinary tract infection) due to urinary indwelling Anderson catheter Is this a current diagnosis for this admission?: Yes Summary: Patient grew out Klebsiella and Citrobacter. (3) PNA (pneumonia) Is this a current diagnosis for this admission?: Yes (4) Anemia of chronic disease Is this a current diagnosis for this admission?: Yes (5) COPD (chronic obstructive pulmonary disease) Is this a current diagnosis for this admission?: Yes (6) Acute encephalopathy Is this a current diagnosis for this admission?: Yes Summary: Secondary to the acute infection. This has resolved. (8) Atrial fibrillation with RVR Is this a current diagnosis for this admission?: Yes (9) COPD exacerbation Is this a current diagnosis for this admission?: Yes (10) Chronic combined systolic and diastolic CHF (congestive heart failure) Is this a current diagnosis for this admission?: Yes (11) Dementia Is this a current diagnosis for this admission?: Yes - Additional Information Resuscitation Status: Do Not Resuscitate Discharge Diet: Cardiac Discharge Activity: Activity As Tolerated Home Medications: Aspirin [Aspirin 325 mg Tablet] 325 mg PO DAILY 11/25/16 Atorvastatin Calcium [Lipitor 40 mg Tablet] 40 mg PO QHS 11/25/16 Cyanocobalamin (Vitamin B-12) [Vitamin B-12 Inj 1000 Mcg/1 ml Vial] 1,000 mcg IM .MONTHLY 11/25/16 Docusate Sodium [Colace 100 mg Capsule] 100 mg PO BID 11/25/16 Ergocalciferol (Vitamin D2) [Vitamin D2] 50,000 unit PO Q7D 11/25/16 Ferrous Sulfate [Feosol] 325 mg PO BID 11/25/16 Finasteride [Proscar 5 mg Tablet] 5 mg PO DAILY 11/25/16 Fluticasone Propionate [Flonase Nasal [place] 50 Mcg/[place] 16 gm] 1 spray NASL DAILY 11/25/16 Furosemide [Lasix 20 mg Tablet] 20 mg PO QAM 11/25/16 Lisinopril [Prinivil 2.5 mg Tablet] 2.5 mg PO DAILY 11/25/16 Multivit,Calc,Mins/Iron/Folic [Therapeutic-M Tablet] 1 each PO DAILY 11/25/16 Phenobarbital [Phenobarbital 64.8 mg Tablet] 64.8 mg PO Q12 11/25/16 Quetiapine Fumarate [Seroquel 25 mg Tablet] 25 mg PO Q8 11/25/16 Sennosides [Senna Laxative] 2 tab PO DAILY 11/25/16 Tamsulosin HCl [Flomax] 0.4 mg PO DAILY 11/25/16 Umeclidinium Brm/Vilanterol Tr [Anoro Ellipta 62.5-25 Mcg INH] 1 puff IH DAILY 11/25/16 Amox Tr/Potassium Clavulanate [Augmentin "500" Tablet] 1 tab PO Q8 #24 tablet 11/30/16 Prednisone [Deltasone 20 mg Tablet] 10 mg PO DAILY #39 tablet 11/30/16 History of Present Illness History of Present Illness: JESENIA LÓPEZ is a 76 year old male who is a resident of [facility] in [facility] who has a chronic indwelling Anderson catheter who presented with a fever of 102. Patient also did have an episode of hypotension when he presented but it did respond to IV fluids and Levophed. The patient is admitted for sepsis secondary to a urinary tract infection. He also is more confused than usual consistent with an acute encephalopathy most likely secondary to the infection. Hospital Course Hospital Course: 76-year-old gentleman who presented with septic shock secondary to a urinary tract infection. He presented with a fever of over 102. He also had pyuria and hypotension that responded to IV fluids. Patient was started on broad- spectrum antibiotics and his urine culture eventually grew out Klebsiella and Citrobacter. The patient does have a chronic indwelling Anderson catheter secondary to neurogenic bladder. The patient also during his hospitalization was noted to have a pneumonia. The patient improved and was eventually switched over to oral antibiotics. The patient also presented with encephalopathy most likely secondary to the underlying infection. This has improved and he is alert and oriented 3 at the time of discharge. The patient' s other medical problems were all stable during this hospitalization. Physical Exam Vital Signs: Temp Pulse Resp BP Pulse Ox 98.5 F 86 17 123/61 96 11/30/16 11:07 11/30/16 11:07 11/30/16 11:07 11/30/16 11:07 11/30/16 11:07 Intake & Output 11/29/16 11/30/16 12/01/16 06:59 06:59 06:59 Intake Total 2126 1945 Output Total 2099 2310 Balance 27 -364 Weight 84.7 kg 84.7 kg General appearance: PRESENT: no acute distress Eye exam: PRESENT: conjunctiva pink. ABSENT: scleral icterus Mouth exam: PRESENT: moist, tongue midline Neck exam: ABSENT: JVD Respiratory exam: PRESENT: clear to auscultation maykel. ABSENT: rales, rhonchi, wheezes Cardiovascular exam: PRESENT: RRR. ABSENT: diastolic murmur, rubs, systolic murmur GI/Abdominal exam: PRESENT: normal bowel sounds, soft. ABSENT: distended, guarding, mass, organolmegaly, rebound, tenderness Extremities exam: ABSENT: calf tenderness, clubbing, pedal edema Neurological exam: PRESENT: alert, awake, oriented to person, oriented to place , oriented to time, CN II-XII grossly intact. ABSENT: oriented to situation, motor sensory deficit Psychiatric exam: PRESENT: appropriate affect Skin exam: PRESENT: dry, intact, warm. ABSENT: cyanosis, rash Results Laboratory Results: 11/26/16 06:49 11/27/16 04:31 11/25/16 05:40 Blood Blood Culture - Final NO GROWTH IN 5 DAYS 11/25/16 15:30 Sputum Gram Stain - Final 11/25/16 15:30 Sputum Sputum Culture - Final NORMAL BRAEDEN 11/25/16 11/25/16 11/26/16 05:40 21:04 03:02 Troponin I 0.080 0.187 0.155 NT-Pro-B Natriuret Pep 6150 H 11/26/16 11/28/16 09:40 04:10 Troponin I 0.105 0.024 NT-Pro-B Natriuret Pep Impressions: Chest X-Ray 11/27/16 00:00 IMPRESSION: Right upper and lower lobe pneumonia. Qualifiers PATEINT BEING DISCHARGED WITH ANY OF THE FOLLOWING DIAGNOSIS?: No Plan Discharge Plan: Patient is discharged back to the [facility] in [facility]. He will follow-up with his primary care in 2 weeks. Also will follow up with his urologist for follow-up of the Anderson catheter which is chronically indwelling. Time Spent: Greater than 30 Minutes
--- NOTE | 2016-11-30 20:11 | PDOC PROGRESS REPORT ---
Subjective Progress Note for:: 11/30/16 Subjective:: Patient seems to be doing better with gradual improvement. Pt is denying any chest arm or neck discomfort. Patient denying any PND, orthopnea. Patient denied any sustained palpitations, dizziness, syncope, near syncope. Patient denying any fever chills. Patient denying any other significant discomfort. Patient is maintaining sinus rhythm. Review of systems: Rest review of systems negative. Medications: Medications have been reviewed. Physical Exam Vital Signs: Temp Pulse Resp BP Pulse Ox 98.5 F 97 14 123/61 96 11/30/16 11:07 11/30/16 14:26 11/30/16 14:26 11/30/16 11:07 11/30/16 11:07 Intake & Output 11/29/16 11/30/16 12/01/16 06:59 06:59 06:59 Intake Total 2127 1946 Output Total 2100 2310 Balance 27 -364 Weight 84.7 kg 84.7 kg Exam: General appearance: PRESENT: no acute distress, well-nourished Head exam: PRESENT: atraumatic, normocephalic Eye exam: PRESENT: conjunctiva pink, EOMI, PERRLA. ABSENT: scleral icterus Ear exam: PRESENT: normal external ear exam Mouth exam: PRESENT: moist, neck supple, tongue midline Throat exam: ABSENT: post pharyngeal erythema, tonsillar erythema, tonsillar exudate, tonsillogmegaly, other Neck exam: ABSENT: carotid bruit, JVD, lymphadenopathy, thyromegaly Respiratory exam: PRESENT: clear to auscultation maykel. ABSENT: rales, rhonchi, wheezes Cardiovascular exam: PRESENT: RRR, +S1, +S2, systolic murmur - 1-2/6 ejection aortic area. ABSENT: diastolic murmur, rubs Pulses: PRESENT: normal carotid pulses, normal radial pulses, normal dorsalis pedis pul GI/Abdominal exam: PRESENT: normal bowel sounds, soft. ABSENT: distended, guarding, mass, organolmegaly, rebound, tenderness Rectal exam: PRESENT: deferred Gentrourinary exam: PRESENT: indwelling catheter. ABSENT: ecchymosis, erythema , lacerations, urethral discharge, other Extremities exam: PRESENT: full ROM. ABSENT: calf tenderness, clubbing, pedal edema Musculoskeletal exam: PRESENT: ambulatory. ABSENT: deformity, dislocation, full ROM, normal inspection, tenderness, other Neurological exam: PRESENT: alert, awake, oriented to person, oriented to place , oriented to time, oriented to situation, CN II-XII grossly intact. ABSENT: motor sensory deficit Psychiatric exam: PRESENT: appropriate affect, normal mood. ABSENT: homicidal ideation, suicidal ideation Focused psych exam: PRESENT: restlessness. ABSENT: euphoric, flight of ideas, paranoid, other Skin exam: PRESENT: dry, intact, warm. ABSENT: cyanosis, rash Results Laboratory Results: 11/26/16 06:49 11/27/16 04:31 11/25/16 05:40 Blood Blood Culture - Final NO GROWTH IN 5 DAYS 11/25/16 11/25/16 11/26/16 05:40 21:04 03:02 Troponin I 0.080 0.187 0.155 NT-Pro-B Natriuret Pep 6150 H 11/26/16 11/28/16 09:40 04:10 Troponin I 0.105 0.024 NT-Pro-B Natriuret Pep Impressions: Chest X-Ray 11/27/16 00:00 IMPRESSION: Right upper and lower lobe pneumonia. Assessment & Plan - Diagnosis (1) Troponin level elevated Is this a current diagnosis for this admission?: Yes (2) Hypotension Qualifiers: Hypotension type: unspecified hypotension type Qualified Code(s): I95.9 - Hypotension, unspecified Is this a current diagnosis for this admission?: Yes (3) Sepsis due to urinary tract infection Is this a current diagnosis for this admission?: Yes (4) Systolic dysfunction, left ventricle Is this a current diagnosis for this admission?: Yes - Notes Notes: Hypotesion: Resolved. Tropnin I elevation sec to sepsis and hypotension. Troponin I elevation: Most likely related to sepsis and hypotension. Continue antibiotic therapy. Hypotension: Resolved. Most likely was related to sepsis and volume depletion. Sepsis due to urinary tract infection: Currently is stable. Systolic dysfunction: 2D echo shows mildly depressed LVEF. Patient will benefit from close cardiology follow-up. No clinical CHF noted. Will be happy to follow patient for further cardiovascular care if requested by the primary class teacher. - Time Time with patient: 15-25 minutes - CODE STATUS : was discussed, patient remains DO NOT RESUSCITATE. Surrogate decision-maker unchanged. Multiple medical problems were addressed. More than 50% of the time spent coordinating care, discussing management plans with involved caregivers. Management plans discussed with involved personnels. Medical decision making was of moderate to high complexity, patient's has multiple comorbidities. Medications reviewed and adjusted accordingly: Yes
== END 2016-11-30 15:10 | DRG 871 ==
LOC: ER 20:24 → UNDOADMIN 11-25 02:07 → EH 11-25 02:07 → ICU 11-25 05:22 → UNDOADMIN 11-25 05:31 → EH 11-25 06:17 → ICU 11-25 06:17 → 4N 11-26 17:51
PROVIDERS: ADMIT Family Medicine; ATTEND Family Medicine
DX: A41.9 Sepsis, unspecified organism (principal); R65.21 Severe sepsis with septic shock; J18.9 Pneumonia, unspecified organism; I50.42 Chronic combined systolic (congestive) and diastolic (congestive) heart failure; T83.511A Infection and inflammatory reaction due to indwelling urethral catheter, initial encounter; Z66 Do not resuscitate; N39.0 Urinary tract infection, site not specified; J44.1 Chronic obstructive pulmonary disease with (acute) exacerbation; J44.0 Chronic obstructive pulmonary disease with (acute) lower respiratory infection; R31.9 Hematuria, unspecified; I48.2 Chronic atrial fibrillation; R00.0 Tachycardia, unspecified; E87.6 Hypokalemia; D69.6 Thrombocytopenia, unspecified; D63.8 Anemia in other chronic diseases classified elsewhere; B96.1 Klebsiella pneumoniae [K. pneumoniae] as the cause of diseases classified elsewhere; B96.89 Other specified bacterial agents as the cause of diseases classified elsewhere; N31.9 Neuromuscular dysfunction of bladder, unspecified; K44.9 Diaphragmatic hernia without obstruction or gangrene; F03.90 Unspecified dementia, unspecified severity, without behavioral disturbance, psychotic disturbance, mood disturbance, and anxiety; G40.909 Epilepsy, unspecified, not intractable, without status epilepticus; I25.2 Old myocardial infarction; Z79.82 Long term (current) use of aspirin; Z79.51 Long term (current) use of inhaled steroids; Z79.01 Long term (current) use of anticoagulants; Z79.52 Long term (current) use of systemic steroids; Z79.899 Other long term (current) drug therapy; Z87.891 Personal history of nicotine dependence
CPT/HCPCS: 36415; 71010; 80048; 80053; 80184; 81001; 82803; 82962; 83605; 83735; 83880; 84484; 85025; 85610; 87040; 87070; 87086; 87088; 87186; 87205; 87493; 93005; 93010; 93306; 94640; 96360; 99291; G8978-GP; G8979-GP; J0696; J1940; J2543; J3475; J3480; J3490; J7030; J7060; J7512; J7620

== ENCOUNTER 2017-02-11 16:47 | Inpatient (IN) | payer MEDICARE ==
--- NOTE | 2017-02-11 17:11 | ER Document Report ---
ED GI/ - General Chief Complaint: Abdominal Pain Stated Complaint: ABDOMINAL PAIN Time Seen by Provider: 02/11/17 17:04 Notes: This is a 76-year-old longterm patient to ER for evaluation abdominal pain. Has an indwelling catheter. Began having abdominal pain yesterday. Previous abdominal surgery for perforated hernia. No fever. Does not feel well though. Pain is largely located in the lower abdomen. TRAVEL OUTSIDE OF THE [place] IN LAST 30 DAYS: No - HPI Patient complains to provider of: Abdominal pain Onset: Yesterday Timing/Duration: Gradual Quality of pain: Cramping Severity at maximum: Moderate Severity in ED: Moderate Pain Level: 2 - Related Data Allergies/Adverse Reactions: No Known Allergies Allergy (Verified 11/25/16 01:51) Past Medical History - General Information source: Patient, Relative - Social History Smoking Status: Former Smoker Frequency of alcohol use: None Drug Abuse: None Lives with: Snf Family History: Reviewed & Not Pertinent, Hypertension Patient has suicidal ideation: No Patient has homicidal ideation: No - Past Medical History Cardiac Medical History: Reports: Hx 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, Hx Heart Attack Denies: Hx DVT, Hx Pulmonary Embolism Pulmonary Medical History: Reports: Hx COPD Denies: Hx Tuberculosis Neurological Medical History: Reports: Hx Seizures - Last episode April 2016 Renal/ Medical History: Denies: Hx Peritoneal Dialysis GI Medical History: Reports: Hx Hiatal Hernia. Denies: Hx Cirrhosis, Hx Gastroesophageal Reflux Disease, Hx Hepatitis Musculoskeltal Medical History: Denies Hx Arthritis Psychiatric Medical History: Denies: Hx Bipolar Disorder, Hx Dementia, Hx Depression Infectious Medical History: Denies: Hx Hepatitis Past Surgical History: Reports: Hx Abdominal Surgery - perforated hernia, Hx Cardiac Surgery - STENT, Hx Coronary Stent - Immunizations Hx Diphtheria, Pertussis, Tetanus Vaccination: Yes Hx Pneumococcal Vaccination: 01/02/11 Review of Systems - Review of Systems Constitutional: No symptoms reported EENT: No symptoms reported Cardiovascular: No symptoms reported Respiratory: No symptoms reported Gastrointestinal: Abdominal pain Genitourinary: No symptoms reported Male Genitourinary: No symptoms reported Musculoskeletal: No symptoms reported Skin: No symptoms reported Hematologic/Lymphatic: No symptoms reported Neurological/Psychological: No symptoms reported Physical Exam - Vital signs Vitals: Temp Pulse Resp BP Pulse Ox 98.9 F 118 H 20 130/94 H 92 02/11/17 17:01 02/11/17 17:01 02/11/17 17:01 02/11/17 17:01 02/11/17 17:01 Interpretation: Normal - General General appearance: Appears well, Alert - HEENT Head: Normocephalic, Atraumatic Eyes: Normal Pupils: PERRL - Respiratory Respiratory status: No respiratory distress Chest status: Nontender Breath sounds: Normal Chest palpation: Normal - Cardiovascular Rhythm: Regular Heart sounds: Normal auscultation Murmur: No - Abdominal Inspection: Normal Distension: No distension Bowel sounds: Normal Tenderness: Tender, Other - Tenderness lower abdomen where there is a midline abdominal scar. Organomegaly: No organomegaly - Back Back: Normal, Nontender - Extremities General upper extremity: Normal inspection, Nontender, Normal color, Normal ROM , Normal temperature General lower extremity: Normal inspection, Nontender, Edema - Mild edema bilateral lower extremities, Normal color, Normal ROM, Normal temperature, Normal weight bearing. No: Ronan's sign - Neurological Neuro grossly intact: Yes Cognition: Normal Orientation: AAOx4 Atlantic Coma Scale Eye Opening: Spontaneous Atlantic Coma Scale Verbal: Oriented Atlantic Coma Scale Motor: Obeys Commands Atlantic Coma Scale Total: 15 Speech: Normal Motor strength normal: LUE, RUE, LLE, RLE Sensory: Normal - Psychological Associated symptoms: Normal affect, Normal mood - Skin Skin Temperature: Warm Skin Moisture: Dry Skin Color: Normal Course - Re-evaluation Re-evalutation: 02/11/17 17:14 We will get labs, urinalysis, replace Anderson, CT abdomen and pelvis and reassess. 02/11/17 19:19 The patient is still drinking contrast at 1920. Has not been to CT yet. Still waiting on CT scan. Patient will be signed over at [address] Cisneros for review of CT scan, review of labs and final disposition. - Vital Signs Vital signs: Temp Pulse Resp BP Pulse Ox 98.9 F 118 H 20 130/94 H 92 02/11/17 17:01 02/11/17 17:01 02/11/17 17:01 02/11/17 17:01 02/11/17 17:01 - Laboratory Result Diagrams: 02/11/17 18:09 02/11/17 18:09 Laboratory results interpreted by me: 02/11/17 02/11/17 02/11/17 18:09 18:09 18:12 WBC 15.0 H RBC 4.22 L Hgb 12.9 L Hct 37.8 L RDW 14.9 H Seg Neuts % (Manual) 87 H Band Neutrophils % 2 L Lymphocytes % (Manual) 3 L Abs Neuts (Manual) 13.4 H Sodium 145.4 H BUN 33 H Est GFR (Non-Af Amer) 58 L Glucose 151 H Lipase 17.5 L Urine Protein 100 H Urine Blood SMALL H Ur Leukocyte Esterase MODERATE H
[2017-02-11 18:46] LABS: HEMATOCRIT 37.8 % (37.9-51.0); HEMOGLOBIN 12.9 g/dL (13.5-17.0); HGB HCT DIFFERENCE 0.9; MEAN CORPUSCULAR HEMOGLOBIN 30.5 pg (27.0-33.4); MEAN CORPUSCULAR HGB CONC 34.1 g/dL (32.0-36.0); MEAN CORPUSCULAR VOLUME 90 fl (80-97); RED BLOOD COUNT 4.22 10^6/uL (4.35-5.55); RED CELL DISTRIBUTION WIDTH 14.9 % (11.5-14.0)
[2017-02-11 18:49] LABS: ALANINE AMINOTRANSFERASE 30 U/L (21-72); ALBUMIN 4.3 g/dL (3.5-5.0); ALKALINE PHOSPHATASE 106 U/L (38-126); ANION GAP 17 (5-19); ASPARTATE AMINO TRANSFERASE 29 U/L (17-59); BILIRUBIN,DIRECT 0.3 mg/dL (0.0-0.4); BILIRUBIN,TOTAL 0.5 mg/dL (0.2-1.3); BLOOD UREA NITROGEN 33 mg/dL (7-20); CALCIUM 9.5 mg/dL (8.4-10.2); CARBON DIOXIDE 22 mmol/L (22-30); CHLORIDE 106 mmol/L (98-107); CREATININE RESULT 1.21 mg/dL (0.52-1.25); GLUCOSE 151 mg/dL (75-110); LIPASE 17.5 U/L (23-300); POTASSIUM 3.8 mmol/L (3.6-5.0); SODIUM 145.4 mmol/L (137-145); TOTAL PROTEIN 7.4 g/dL (6.3-8.2)
[2017-02-11 18:50] LABS: APPEARANCE,URINE TURBID; BILIRUBIN,URINE NEGATIVE (NEGATIVE); GLUCOSE, URINE NEGATIVE (NEGATIVE); KETONES,URINE NEGATIVE (NEGATIVE); LEUKOCYTE ESTERASE,URINE MODERATE (NEGATIVE); NITRITE,URINE NEGATIVE (NEGATIVE); PROTEIN,URINE 100 mg/dL (NEGATIVE); URINE SPECIFIC GRAVITY 1.014; UROBILINOGEN,URINE NEGATIVE mg/dL (<2.0)
[2017-02-11 18:57] LABS: ANISOCYTOSIS SLIGHT; BAND NEUTROPHILS % (MANUAL) 2 % (3-5); BASOPHILS % (MANUAL) 0 % (0-2); EOSINOPHILS % (MANUAL) 0 % (0-6); LYMPHOCYTES % (MANUAL) 3 % (13-45); TOTAL CELLS COUNTED 100
[2017-02-11 18:59] LABS: OVALOCYTES SLIGHT; POIKILOCYTOSIS SLIGHT
[2017-02-11] MEDS ORDERED: CEFTRIAXONE 1 GM/D5W RTU 1 GM/50 ML RTUPB IV ONE (19:20)
[2017-02-11] MEDS ORDERED: NORMAL SALINE 1000 ML 1,000 ML IV ONE (19:21)
[2017-02-11] MEDS ORDERED: ONDANSETRON HCL INJ/PF 4 MG/2 ML SDV ONE ×2 (19:38)
[2017-02-11] MEDS ORDERED: NORMAL SALINE 1000 ML 1,000 ML IV PRN (19:46)
[2017-02-11] MEDS ORDERED: ONDANSETRON HCL INJ/PF 4 MG/2 ML SDV IV ONE (20:16)
--- NOTE | 2017-02-11 21:46 | RADIOLOGY REPORT (SQ) ---
EXAM DESCRIPTION: CT ABD/PELVIS WITH IV ORAL COMPLETED DATE/TIME: 02/11/2017 9:14 pm REASON FOR STUDY: abd pain COMPARISON: 08/23/2016 TECHNIQUE: CT scan of the abdomen and pelvis performed using helical scanning technique with dynamic intravenous contrast injection. No oral contrast. Images reviewed with lung, soft tissue, and bone windows. Reconstructed coronal and sagittal MPR images reviewed. Delayed images for evaluation of the urinary system also acquired. All images stored on PACS. All CT scanners at this facility use dose modulation, iterative reconstruction, and/or weight based d osing when appropriate to reduce radiation dose to as low as reasonably achievable (ALARA). [facility]: Dose Right [facility]: CareDose [facility]: Dose Right [facility]: Teradose 4D [facility]: MoSo CONTRAST TYPE AND DOSE: contrast/concentration: Isovue 370.00 mg/ml; Total Contrast Delivered: 91.0 ml; Total Saline Delivered: 69.9 ml RENAL FUNCTION: BUN 33; creatinine 1.21 RADIATION DOSE: Up-to-date CT equipment and radiation dose reduction techniques were employed. CTDIv ol: 17.8 - 20.1 mGy. DLP: 2017 mGy-cm.. LIMITATIONS: None. FINDINGS: LOWER CHEST: No significant findings. No nodules or infiltrates. LIVER: Normal size. No masses. No dilated ducts. SPLEEN: Normal size. No focal lesions. PANCREAS: No masses. No significant calcifications. No adjacent inflammation or peripancreatic fluid collections. Pancreatic duct not dilated. GALLBLADDER: No identified stones by CT criteria. No inflammatory changes to suggest cholecystitis. 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 RIGHT KIDNEY AND URETER: No solid masses. No significant calcifications. No hydronephrosis or hyd roureter. LEFT KIDNEY AND URETER: No solid masses. No significant calcifications. No hydronephrosis or hydr oureter. AORTA AND VESSELS: Ectasia without focal aneurysm. No dissection. RETROPERITONEUM: No retroperitoneal adenopathy, hemorrhage or masses. BOWEL AND PERITONEAL CAVITY: Prominent stool burden within the rectal vault. Diffuse peritoneal fat stranding without focal nidus of infection evident. Colonic diverticula without associated inflammat ory changes. No masses identified. APPENDIX: Normal. PELVIS: The bladder is largely decompressed by an indwelling Anderson bladder catheter. ABDOMINAL WALL: No masses. No hernias. BONES: No significant or acute findings. OTHER: No other significant finding. IMPRESSION: Prominent rectal stool burden. Diffuse mesenteric fat stranding without nidus of infect ion evident. Essentially stable CT appearance of the abdomen and pelvis. TECHNICAL DOCUMENTATION: JOB ID: [id number] Quality ID # [id number]: Final reports with documentation of one or more dose reduction techniques (e.g., Au tomated exposure control, adjustment of the mA and/or kV according to patient size, use of iterative reconstruction technique) 2010 [employer]- All Rights Reserved
--- NOTE | 2017-02-11 22:23 | RADIOLOGY REPORT (SQ) ---
EXAM DESCRIPTION: CHEST SINGLE VIEW COMPLETED DATE/TIME: 02/11/2017 10:04 pm REASON FOR STUDY: vomiting COMPARISON: 11/27/2016 EXAM PARAMETERS: NUMBER OF VIEWS: One view. TECHNIQUE: Single frontal radiographic view of the chest acquired. RADIATION DOSE: NA LIMITATIONS: None. FINDINGS: LUNGS AND PLEURA: A retrocardiac opacity may represent consolidation versus atelectasis. The lungs otherwise appear to be clear and evenly aerated. No pneumothorax. No pleural effusion. MEDIASTINUM AND HILAR STRUCTURES: No masses. Contour normal. HEART AND VASCULAR STRUCTURES: Heart normal in size. Normal vasculature. BONES: No acute findings. HARDWARE: An apparent enteric tube is seen along the expected course of the esophagus, but appears lo oped with the tip projecting at the level of the clavicular heads. OTHER: No other significant finding. IMPRESSION: 1. Retrocardiac opacity may represent consolidation versus atelectasis. Consider dedic ated PA/ Lat imaging when feasible. 2. Placement of an enteric tube which appears looped within the thoracic esophagus with the tip proj ecting at the level of the clavicular heads and the caudal most portion of the loop at the level of t he distal thoracic esophagus. Recommend reposition. TECHNICAL DOCUMENTATION: JOB ID: [id number] [employer]- All Rights Reserved
--- NOTE | 2017-02-11 22:42 | RADIOLOGY REPORT (SQ) ---
EXAM DESCRIPTION: CHEST SINGLE VIEW COMPLETED DATE/TIME: 02/11/2017 10:25 pm REASON FOR STUDY: NG tube placement COMPARISON: 02/11/2017 EXAM PARAMETERS: NUMBER OF VIEWS: One view. TECHNIQUE: Single frontal radiographic view of the chest acquired. RADIATION DOSE: NA LIMITATIONS: The apical lungs are not included in the field of view in the images over exposed for ev aluation of the pulmonary parenchyma. FINDINGS: Limited examination was performed for the purposes of assessing repositioning of an enteri c tube. The enteric tube is seen along the expected course of the esophagus with both the tip and proximal po rt projecting subdiaphragmatically in the left upper quadrant. Incomplete evaluation of the upper ab domen demonstrates gas within loops of both small and large bowel. No pneumoperitoneum is evident. IMPRESSION: Repositioning of the enteric tube, with the tip and proximal port both projecting subdia phragmatically within the left upper quadrant. TECHNICAL DOCUMENTATION: JOB ID: [id number] [employer]- All Rights Reserved
[2017-02-11] MEDS ORDERED: ONDANSETRON HCL INJ/PF 4 MG/2 ML SDV IV PRN (23:10)
[2017-02-11] MEDS ORDERED: ACETAMINOPHEN 325 MG TABLET PO PRN (23:10)
[2017-02-11] MEDS ORDERED: HYDRALAZINE HCL INJ/PF 20 MG/1 ML SDV IV PRN (23:10)
[2017-02-11] MEDS ORDERED: LACTULOSE SYRUP 20 GM/30 ML UDCUP PO ONE (23:45)
[2017-02-11] MEDS: IPRATROPIUM/ALBUTEROL 0.5-2.5 MG/3 ML AMPUL NEB SCH (23:55)
[2017-02-11] MEDS ORDERED: LEVOFLOXACIN 750 MG/D5W RTU 750 MG/150 ML RTUPB IV ONE (23:59)
[2017-02-12] MEDS: METRONIDAZOLE 500 MG TABLET PO SCH ×2 (00:48→06:06)
[2017-02-12] MEDS: NORMAL SALINE 1000 ML 1,000 ML IV SCH ×2 (01:31→03:30)
[2017-02-12] MEDS ORDERED: INFLUENZA ADLT QUAD (36MOS+) 2017-18 VAC 0.5 ML SYR IM PRN (03:13)
[2017-02-12] MEDS: QUETIAPINE FUMARATE 25 MG TABLET PO SCH ×3 (06:06→23:43)
[2017-02-12] MEDS: HEPARIN SOD (PORCINE) 5,000 UNIT/ML 1 ML SYRINGE SUBCUT SCH ×3 (06:06→23:42)
[2017-02-12 06:11] LABS: ABSOLUTE LYMPHOCYTES (AUTO) 0.9 10^3/uL (0.5-4.7); ABSOLUTE MONOCYTES (AUTO) 1.5 10^3/uL (0.1-1.4); ABSOLUTE NEUT (AUTO) 12.4 10^3/uL (1.7-8.2); BASOPHILS % (AUTO) 0.2 % (0-2); EOSINOPHILS % (AUTO) 0.1 % (0-6); HEMATOCRIT 32.9 % (37.9-51.0); HEMOGLOBIN 11.5 g/dL (13.5-17.0); HGB HCT DIFFERENCE 1.6; MEAN CORPUSCULAR HEMOGLOBIN 31.5 pg (27.0-33.4); MEAN CORPUSCULAR HGB CONC 34.8 g/dL (32.0-36.0); MEAN CORPUSCULAR VOLUME 90 fl (80-97); MONOCYTES % (AUTO) 10.3 % (3-13); RED BLOOD COUNT 3.64 10^6/uL (4.35-5.55); RED CELL DISTRIBUTION WIDTH 15.1 % (11.5-14.0); SEGMENTED NEUTROPHILS % (AUTO) 83.4 % (42-78); WHITE BLOOD COUNT 14.9 10^3/uL (4.0-10.5)
[2017-02-12 06:27] LABS: ANION GAP 13 (5-19); BLOOD UREA NITROGEN 35 mg/dL (7-20); CALCIUM 9.1 mg/dL (8.4-10.2); CARBON DIOXIDE 26 mmol/L (22-30); CHLORIDE 106 mmol/L (98-107); CREATININE RESULT 1.04 mg/dL (0.52-1.25); GLUCOSE 92 mg/dL (75-110)
[2017-02-12] MEDS: IPRATROPIUM/ALBUTEROL 0.5-2.5 MG/3 ML AMPUL NEB SCH ×3 (07:37→23:58)
[2017-02-12] MEDS: POTASSI CL 20 MEQ/NS 1L 1,000 ML IV PRN (08:31)
[2017-02-12] MEDS ORDERED: NORMAL SALINE 1000 ML 500 ML IV PRN (08:54)
--- NOTE | 2017-02-12 09:19 | PDOC PROGRESS REPORT ---
Subjective Progress Note for:: 02/12/17 Subjective:: The patient is a 76-year-old man gentleman who resides at a alf facility. He has chronic urinary retention with a chronic Anderson catheter in place and a history of frequent urinary tract infections. The patient presented to the emergency room with abdominal pain with associated episodes of nausea and vomiting. A CT scan in the of the abdomen and pelvis revealed significant stool burden. There was no other evidence of obstruction or acute infection. Initially his Anderson catheter appeared to be obstructed. It was eventually changed out and a urinalysis was obtained which appeared to be acutely infected. The patient was manually disimpacted in the emergency room. He still has not had a good bowel movement as of this morning. Today the patient is resting comfortably. He is awake alert and oriented 2. He answers questions fairly appropriately. He says that he has had no acute fever chills overnight. He states that he has had no further episodes of nausea or vomiting and his abdominal pain is slightly improved. He states he has not had a bowel movement in 2 days. He states that he has had no cough or upper respiratory symptoms. He reports no issues from his Anderson catheter. Physical Exam Vital Signs: Temp Pulse Resp BP Pulse Ox 98.1 F 77 18 96/62 L 94 02/12/17 07:27 02/12/17 07:37 02/12/17 07:37 02/12/17 08:50 02/12/17 07:37 Intake & Output 02/11/17 02/12/17 02/13/17 06:59 06:59 06:59 Intake Total 2120 Output Total 1600 Balance 520 Weight 82.2 kg General appearance: PRESENT: no acute distress, cooperative, disheveled, well- developed, well-nourished Head exam: PRESENT: atraumatic, normocephalic Eye exam: PRESENT: conjunctiva pink, EOMI, PERRLA. ABSENT: scleral icterus Mouth exam: PRESENT: tongue midline, other - Oral mucosa is somewhat tacky Neck exam: ABSENT: carotid bruit, JVD, lymphadenopathy, thyromegaly Respiratory exam: PRESENT: clear to auscultation maykel. ABSENT: rales, rhonchi, wheezes Cardiovascular exam: PRESENT: RRR. ABSENT: diastolic murmur, rubs, systolic murmur GI/Abdominal exam: PRESENT: distended, firm, hypoactive bowel sounds, tenderness. ABSENT: guarding, mass, organolmegaly, rebound Rectal exam: PRESENT: deferred Extremities exam: PRESENT: full ROM. ABSENT: calf tenderness, clubbing, pedal edema Neurological exam: PRESENT: alert, awake, oriented to person, oriented to place , oriented to time, oriented to situation, CN II-XII grossly intact. ABSENT: motor sensory deficit Skin exam: PRESENT: dry, intact, warm. ABSENT: cyanosis, rash Results Laboratory Results: 02/12/17 04:49 02/12/17 04:49 02/12/17 02/12/17 04:49 04:49 WBC 14.9 H RBC 3.64 L Hgb 11.5 L Hct 32.9 L MCV 90 MCH 31.5 MCHC 34.8 RDW 15.1 H Plt Count 150 Seg Neutrophils % 83.4 H Lymphocytes % 6.0 L Monocytes % 10.3 Eosinophils % 0.1 Basophils % 0.2 Absolute Neutrophils 12.4 H Absolute Lymphocytes 0.9 Absolute Monocytes 1.5 H Absolute Eosinophils 0.0 Absolute Basophils 0.0 Sodium 145.0 Potassium 4.0 Chloride 106 Carbon Dioxide 26 Anion Gap 13 BUN 35 H Creatinine 1.04 Est GFR ( Amer) > 60 Est GFR (Non-Af Amer) > 60 Glucose 92 Calcium 9.1 02/12/17 04:49 NT-Pro-B Natriuret Pep 80494 H Impressions: Abdomen/Pelvis CT 02/11/17 17:12 IMPRESSION: Prominent rectal stool burden. Diffuse mesenteric fat stranding without nidus of infection evident. Essentially stable CT appearance of the abdomen and pelvis. Chest X-Ray 02/11/17 21:48 IMPRESSION: 1. Retrocardiac opacity may represent consolidation versus atelectasis. Consider dedicated PA/ Lat imaging when feasible. 2. Placement of an enteric tube which appears looped within the thoracic esophagus with the tip projecting at the level of the clavicular heads and the caudal most portion of the loop at the level of the distal thoracic esophagus. Recommend reposition. Assessment & Plan - Diagnosis (1) UTI (urinary tract infection) due to urinary indwelling Anderson catheter Qualifiers: Indwelling urinary catheter type: indwelling urethral catheter Plan: The patient appears to have a urinary tract infection likely due to his chronic indwelling Anderson catheter which was present at the time of admission. Previous cultures were reviewed. His most recent culture was positive for Citrobacter and Klebsiella both of which are sensitive to IV Rocephin. He will continue IV Rocephin. He did receive a dose yesterday. This will be day #2 of treatment. We will await final culture and sensitivity results. Blood cultures are pending. (2) Fecal impaction Plan: The patient was disimpacted in the emergency room last night. Still has not had a bowel movement. We will continue enemas today and hopefully get his bowels moving. We will place the patient on a bowel regimen with the stool softener and MiraLAX as well. (3) Acute kidney injury Plan: Secondary to dehydration. Improving. I am going to cut back his IV fluids to 75 cc an hour. We will start a diet today and see how he is doing. A chemistry panel will be checked in the morning (4) Hypernatremia Plan: Secondary to dehydration. Resolved at this point. (5) Chronic systolic (congestive) heart failure Plan: Currently he is still a little dry. He received quite a bit of fluid in the emergency room. We will have to watch him quite closely for signs of volume overload. He will have a BNP drawn in the morning. (6) COPD (chronic obstructive pulmonary disease) Qualifiers: COPD type: unspecified COPD Qualified Code(s): J44.9 - Chronic obstructive pulmonary disease, unspecified Plan: No evidence of exacerbation. (7) Dementia Plan: There are no family members present but he does answer questions appropriately. I believe he is at his cognitive baseline. (8) Anemia Qualifiers: Anemia type: unspecified type Qualified Code(s): D64.9 - Anemia, unspecified Is this a current diagnosis for this admission?: Yes Plan: This appears to be an anemia of chronic disease. His hemoglobin is stable. - Time Time Spent with patient: 25-34 minutes - Inpatient Certification Medical Necessity: Need For IV Fluids, Need for IV Antibiotics - Inpatient hospitalization remains necessary. The patient has evidence of a urinary tract infection and remains significantly dehydrated. He needs parenteral antibiotics and IV fluids. He has a chronic indwelling Anderson catheter so this could be a complicated urinary tract infection. I believe we need culture results prior to making a decision on outpatient antibiotic therapy.
[2017-02-12] MEDS: NA PHOS,M-B/NA PHOS,DI-BA (ADULT) 133 ML ENEMA PR SCH (10:18)
[2017-02-12] MEDS: FLUTICASONE NASAL SPRAY 50 MCG/SPRY 120 SPRAY/16 GM NASL SCH (10:18)
[2017-02-12] MEDS: PHENOBARBITAL 64.8 MG TABLET PO SCH ×2 (10:18→23:41)
[2017-02-12] MEDS: ASPIRIN 325 MG TABLET PEG SCH (10:18)
[2017-02-12] MEDS: DOCUSATE SODIUM 100 MG CAPSULE PO SCH ×2 (10:18→18:38)
[2017-02-12] MEDS: CEFTRIAXONE 1 GM/D5W RTU 1 GM/50 ML RTUPB IV SCH (10:19)
[2017-02-12] MEDS: POLYETHYLENE GLYCOL 3350 POWDER 17 GM/1 PACKET PO SCH ×2 (10:19→18:38)
[2017-02-12] MEDS: PREDNISONE 20 MG TABLET PO SCH (10:19)
[2017-02-12] MEDS: FINASTERIDE 5 MG TABLET PO SCH (10:20)
[2017-02-12] MEDS ORDERED: LEVOFLOXACIN 750 MG/D5W RTU 750 MG/150 ML RTUPB IV SCH (22:00)
[2017-02-12] MEDS ORDERED: MAGNESIUM HYDROXIDE SUSP 30 ML UDCUP PO SCH (22:00)
[2017-02-12] MEDS: ATORVASTATIN CALCIUM 40 MG TABLET PO SCH (23:40)
[2017-02-13] MEDS: NA PHOS,M-B/NA PHOS,DI-BA (ADULT) 133 ML ENEMA PR SCH ×2 (01:01→10:18)
[2017-02-13] MEDS: POTASSI CL 20 MEQ/NS 1L 1,000 ML IV PRN (02:39)
[2017-02-13 04:42] LABS: ABSOLUTE EOSINOPHILS # (AUTO) 0.2 10^3/uL (0.0-0.6); ABSOLUTE LYMPHOCYTES (AUTO) 1.1 10^3/uL (0.5-4.7); ABSOLUTE MONOCYTES (AUTO) 0.9 10^3/uL (0.1-1.4); ABSOLUTE NEUT (AUTO) 7.9 10^3/uL (1.7-8.2); BASOPHILS % (AUTO) 0.3 % (0-2); EOSINOPHILS % (AUTO) 1.9 % (0-6); HEMATOCRIT 29.8 % (37.9-51.0); HGB HCT DIFFERENCE 0.2; LYMPHOCYTES % (AUTO) 11.2 % (13-45); MEAN CORPUSCULAR HEMOGLOBIN 30.8 pg (27.0-33.4); MEAN CORPUSCULAR HGB CONC 33.7 g/dL (32.0-36.0); MEAN CORPUSCULAR VOLUME 91 fl (80-97); MONOCYTES % (AUTO) 8.8 % (3-13); RED BLOOD COUNT 3.26 10^6/uL (4.35-5.55); RED CELL DISTRIBUTION WIDTH 15.1 % (11.5-14.0); SEGMENTED NEUTROPHILS % (AUTO) 77.8 % (42-78); WHITE BLOOD COUNT 10.2 10^3/uL (4.0-10.5)
[2017-02-13 05:23] LABS: ANION GAP 9 (5-19); BLOOD UREA NITROGEN 25 mg/dL (7-20); CALCIUM 8.8 mg/dL (8.4-10.2); CARBON DIOXIDE 28 mmol/L (22-30); CHLORIDE 110 mmol/L (98-107); CREATININE RESULT 0.88 mg/dL (0.52-1.25); GLUCOSE 82 mg/dL (75-110); MAGNESIUM 2.3 mg/dL (1.6-2.3); POTASSIUM 3.9 mmol/L (3.6-5.0); SODIUM 146.6 mmol/L (137-145)
[2017-02-13] MEDS: HEPARIN SOD (PORCINE) 5,000 UNIT/ML 1 ML SYRINGE SUBCUT SCH ×3 (06:44→23:21)
[2017-02-13] MEDS: QUETIAPINE FUMARATE 25 MG TABLET PO SCH ×3 (06:49→23:21)
[2017-02-13] MEDS: IPRATROPIUM/ALBUTEROL 0.5-2.5 MG/3 ML AMPUL NEB SCH ×3 (07:31→23:53)
[2017-02-13] MEDS ORDERED: VANCOMYCIN HCL 0 MG in DEXTROSE 5%-WATER 250 ML IV NR (08:30)
[2017-02-13] MEDS: PREDNISONE 20 MG TABLET PO SCH (10:16)
[2017-02-13] MEDS: ASPIRIN 325 MG TABLET PEG SCH (10:16)
[2017-02-13] MEDS: DOCUSATE SODIUM 100 MG CAPSULE PO SCH (10:16)
[2017-02-13] MEDS: FLUTICASONE NASAL SPRAY 50 MCG/SPRY 120 SPRAY/16 GM NASL SCH (10:17)
[2017-02-13] MEDS: FINASTERIDE 5 MG TABLET PO SCH (10:17)
[2017-02-13] MEDS: CEFTRIAXONE 1 GM/D5W RTU 1 GM/50 ML RTUPB IV SCH (10:17)
[2017-02-13] MEDS: PHENOBARBITAL 64.8 MG TABLET PO SCH ×2 (10:17→23:21)
[2017-02-13] MEDS: POLYETHYLENE GLYCOL 3350 POWDER 17 GM/1 PACKET PO SCH (10:18)
[2017-02-13] MEDS ORDERED: VANCOMYCIN HCL 1,000 MG in DEXTROSE 5%-WATER 250 ML IV ONE (11:00)
--- NOTE | 2017-02-13 14:41 | PDOC PROGRESS REPORT ---
Subjective Progress Note for:: 02/13/17 Subjective:: The patient is a 76-year-old man gentleman who resides at a long term facility. He has chronic urinary retention with a chronic Anderson catheter in place and a history of frequent urinary tract infections. The patient presented to the emergency room with abdominal pain with associated episodes of nausea and vomiting. A CT scan in the of the abdomen and pelvis revealed significant stool burden. There was no other evidence of obstruction or acute infection. Initially his Anderson catheter appeared to be obstructed. It was eventually changed out and a urinalysis was obtained which appeared to be acutely infected. The patient was manually disimpacted in the emergency room. He still has not had a good bowel movement as of this morning. Today the patient is resting comfortably. He is awake alert and oriented 3. He answers questions quite appropriately. He says that he has had no acute fever chills overnight. He states that he has had no further episodes of nausea or vomiting and his abdominal pain is slightly improved. He says that he had multiple bowel movements yesterday. He states that he has had no cough or upper respiratory symptoms. He reports no issues from his Anderson catheter. Physical Exam Vital Signs: Temp Pulse Resp BP Pulse Ox 98.4 F 66 18 119/67 95 02/13/17 07:18 02/13/17 07:31 02/13/17 07:31 02/13/17 07:18 02/13/17 07:31 Intake & Output 02/12/17 02/13/17 02/14/17 06:59 06:59 06:59 Intake Total 2120 2314 Output Total 1600 925 Balance 520 1389 Weight 82.2 kg 81.7 kg General appearance: PRESENT: no acute distress, well-developed, well-nourished Head exam: PRESENT: atraumatic, normocephalic Eye exam: PRESENT: conjunctiva pink, EOMI, PERRLA. ABSENT: scleral icterus Ear exam: PRESENT: normal external ear exam Mouth exam: PRESENT: moist, tongue midline Neck exam: ABSENT: carotid bruit, JVD, lymphadenopathy, thyromegaly Respiratory exam: PRESENT: crackles. ABSENT: rales, rhonchi, wheezes Cardiovascular exam: PRESENT: RRR. ABSENT: diastolic murmur, rubs, systolic murmur Pulses: PRESENT: normal dorsalis pedis pul GI/Abdominal exam: PRESENT: normal bowel sounds, soft. ABSENT: distended, guarding, mass, organolmegaly, rebound, tenderness Rectal exam: PRESENT: deferred Extremities exam: PRESENT: full ROM. ABSENT: calf tenderness, clubbing, pedal edema Neurological exam: PRESENT: alert, awake, oriented to person, oriented to place , oriented to time, oriented to situation, CN II-XII grossly intact. ABSENT: motor sensory deficit Psychiatric exam: PRESENT: appropriate affect, normal mood. ABSENT: homicidal ideation, suicidal ideation Skin exam: PRESENT: dry, intact, warm. ABSENT: cyanosis, rash Results Laboratory Results: 02/13/17 04:32 02/13/17 04:32 02/13/17 02/13/17 04:32 04:32 WBC 10.2 RBC 3.26 L Hgb 10.0 L Hct 29.8 L MCV 91 MCH 30.8 MCHC 33.7 RDW 15.1 H Plt Count 117 L Seg Neutrophils % 77.8 Lymphocytes % 11.2 L Monocytes % 8.8 Eosinophils % 1.9 Basophils % 0.3 Absolute Neutrophils 7.9 Absolute Lymphocytes 1.1 Absolute Monocytes 0.9 Absolute Eosinophils 0.2 Absolute Basophils 0.0 Sodium 146.6 H Potassium 3.9 Chloride 110 H Carbon Dioxide 28 Anion Gap 9 BUN 25 H Creatinine 0.88 Est GFR ( Amer) > 60 Est GFR (Non-Af Amer) > 60 Glucose 82 Calcium 8.8 Magnesium 2.3 02/12/17 02/13/17 04:49 04:32 NT-Pro-B Natriuret Pep 96214 H 6550 H Impressions: Abdomen/Pelvis CT 02/11/17 17:12 IMPRESSION: Prominent rectal stool burden. Diffuse mesenteric fat stranding without nidus of infection evident. Essentially stable CT appearance of the abdomen and pelvis. Chest X-Ray 02/11/17 21:48 IMPRESSION: 1. Retrocardiac opacity may represent consolidation versus atelectasis. Consider dedicated PA/ Lat imaging when feasible. 2. Placement of an enteric tube which appears looped within the thoracic esophagus with the tip projecting at the level of the clavicular heads and the caudal most portion of the loop at the level of the distal thoracic esophagus. Recommend reposition. Assessment & Plan - Diagnosis (1) UTI (urinary tract infection) due to urinary indwelling Anderson catheter Qualifiers: Indwelling urinary catheter type: indwelling urethral catheter Plan: He has a chronic indwelling Anderson catheter that was present on admission. His urinary tract infection is due to this Anderson catheter. At this point he has 2 species of gram-negative rods growing in his urine. This is day #3 of treatment with IV Rocephin. We will await final culture results. (2) Positive blood culture Plan: The patient has 1 out of 2 blood cultures positive for gram-positive cocci. This is likely a contaminant. He has been started on IV vancomycin. We will await final culture results and this likely can be stopped. Repeat blood culture should be rechecked probably tomorrow. (3) Fecal impaction Plan: The patient was disimpacted in the emergency room and he was started on an aggressive bowel regimen. The patient has now had multiple bowel movements. I will stop his scheduled MiraLAX and scheduled enemas. He will continue with Colace but I will change this to once daily. (4) Acute kidney injury Plan: Secondary to dehydration. Resolved. I am going to stop his IV fluids today. (5) Hypernatremia Plan: Initially secondary to dehydration. At this point I believe it is due to receiving normal saline. His IV fluids will be stopped today. He will have a level drawn in the morning.. (6) Chronic systolic (congestive) heart failure Plan: I am concerned the patient may be getting volume overloaded. He does have an elevated BNP. Currently does not appear to be acutely short of breath. At this point I am simply going to stop his IV fluids. He may require a little bit of Lasix if he developed shortness of breath. (7) COPD (chronic obstructive pulmonary disease) Qualifiers: COPD type: unspecified COPD Qualified Code(s): J44.9 - Chronic obstructive pulmonary disease, unspecified Plan: No evidence of exacerbation. (8) Dementia Plan: There are no family members present but he does answer questions appropriately. I believe he is at his cognitive baseline. (9) Anemia Qualifiers: Anemia type: unspecified type Qualified Code(s): D64.9 - Anemia, unspecified Is this a current diagnosis for this admission?: Yes Plan: This appears to be an anemia of chronic disease. He did have a precipitous drop in hemoglobin likely due to hemodilution (10) Thrombocytopenia Plan: Of undetermined significance at this point. This simply could be due to his acute infection. He is receiving heparin for DVT prophylaxis. If his platelet level drops further would consider stopping the heparin. For now we will check a CBC in the morning. - Time Time Spent with patient: 15-24 minutes - Inpatient Certification Medical Necessity: Need for IV Antibiotics - Inpatient hospitalization remains necessary, Other - Inpatient hospitalization remains necessary. The patient resides in a long term facility. He has 1 positive blood culture. He has 2 species of gram-negative rods growing in his urine. We need final culture results to determine outpatient therapy. Overall he is improving. Timing of disposition will be determined by his clinical course.
[2017-02-13] MEDS: ATORVASTATIN CALCIUM 40 MG TABLET PO SCH (23:21)
[2017-02-13] MEDS: VANCOMYCIN HCL 1,000 MG in DEXTROSE 5%-WATER 250 ML IV SCH (23:21)
[2017-02-14] MEDS: QUETIAPINE FUMARATE 25 MG TABLET PO SCH ×3 (06:44→22:24)
[2017-02-14] MEDS: HEPARIN SOD (PORCINE) 5,000 UNIT/ML 1 ML SYRINGE SUBCUT SCH ×3 (06:46→22:24)
[2017-02-14 06:56] LABS: ABSOLUTE EOSINOPHILS # (AUTO) 0.2 10^3/uL (0.0-0.6); ABSOLUTE LYMPHOCYTES (AUTO) 0.8 10^3/uL (0.5-4.7); ABSOLUTE MONOCYTES (AUTO) 0.8 10^3/uL (0.1-1.4); ABSOLUTE NEUT (AUTO) 7.9 10^3/uL (1.7-8.2); BASOPHILS % (AUTO) 0.3 % (0-2); EOSINOPHILS % (AUTO) 2.1 % (0-6); HEMATOCRIT 33.3 % (37.9-51.0); HEMOGLOBIN 11.3 g/dL (13.5-17.0); HGB HCT DIFFERENCE 0.6; LYMPHOCYTES % (AUTO) 8.5 % (13-45); MEAN CORPUSCULAR HEMOGLOBIN 30.8 pg (27.0-33.4); MEAN CORPUSCULAR VOLUME 91 fl (80-97); MONOCYTES % (AUTO) 8.1 % (3-13); RED BLOOD COUNT 3.68 10^6/uL (4.35-5.55); WHITE BLOOD COUNT 9.8 10^3/uL (4.0-10.5)
[2017-02-14 07:22] LABS: ANION GAP 13 (5-19); BLOOD UREA NITROGEN 11 mg/dL (7-20); CALCIUM 8.5 mg/dL (8.4-10.2); CARBON DIOXIDE 24 mmol/L (22-30); CHLORIDE 108 mmol/L (98-107); CREATININE RESULT 0.73 mg/dL (0.52-1.25); GLUCOSE 97 mg/dL (75-110); POTASSIUM 3.6 mmol/L (3.6-5.0); SODIUM 144.8 mmol/L (137-145)
[2017-02-14] MEDS ORDERED: IPRATROPIUM/ALBUTEROL 0.5-2.5 MG/3 ML AMPUL NEB ONE ×2 (08:00→08:45)
--- NOTE | 2017-02-14 08:05 | RADIOLOGY REPORT (SQ) ---
EXAM DESCRIPTION: ACUTE ABDOMEN SERIES COMPLETED DATE/TIME: 02/14/2017 7:52 am REASON FOR STUDY: Shortness of breath, difficulty breathing COMPARISON: Chest x-ray 02/11/2017. CT abdomen and pelvis 02/11/2017. NUMBER OF VIEWS: Three views. TECHNIQUE: Frontal chest, supine abdomen and upright/decubitus abdomen radiographic images acquired. LIMITATIONS: None. FINDINGS: CHEST: The heart is enlarged. There is interval development of vascular congestion and in terstitial edema. Right-sided perihilar airspace opacity. No pleural effusion or pneumothorax. The enteric tube has been removed. FREE AIR: None. BOWEL GAS PATTERN: Nonobstructive bowel gas pattern, residual oral contrast is seen in the colon. La rge stool ball at the rectum. CALCIFICATIONS: Vascular calcifications are noted. HARDWARE: Anderson catheter noted at the pelvis. SOFT TISSUES: No gross mass or suggestion of organomegaly. BONES: There is osteopenia. Multilevel degenerative changes in the spine. IMPRESSION: Cardiomegaly with vascular congestion and interstitial edema. Right-sided perihilar air space opacity, may represent pulmonary edema, superimposed pneumonia is not excludable. Nonobstructive bowel gas pattern. Large stool ball at the rectum, please correlate for constipation/ fecal impaction. TECHNICAL DOCUMENTATION: JOB ID: [id number] [employer]- All Rights Reserved
[2017-02-14] MEDS: IPRATROPIUM/ALBUTEROL 0.5-2.5 MG/3 ML AMPUL NEB SCH ×3 (08:34→23:24)
[2017-02-14] MEDS ORDERED: FUROSEMIDE 20 MG TABLET PO SCH (10:00)
[2017-02-14] MEDS ORDERED: DOCUSATE SODIUM 100 MG CAPSULE PO SCH (10:00)
[2017-02-14] MEDS: FINASTERIDE 5 MG TABLET PO SCH (10:57)
[2017-02-14] MEDS: CEFTRIAXONE 1 GM/D5W RTU 1 GM/50 ML RTUPB IV SCH (10:57)
[2017-02-14] MEDS: ASPIRIN 325 MG TABLET PEG SCH (10:57)
[2017-02-14] MEDS: PREDNISONE 20 MG TABLET PO SCH (10:58)
[2017-02-14] MEDS: PHENOBARBITAL 64.8 MG TABLET PO SCH ×2 (10:58→22:24)
[2017-02-14] MEDS: FLUTICASONE NASAL SPRAY 50 MCG/SPRY 120 SPRAY/16 GM NASL SCH (10:58)
[2017-02-14] MEDS ORDERED: FUROSEMIDE INJ/PF 20 MG/2 ML SDV IV ONE (11:00)
[2017-02-14] MEDS ORDERED: BISACODYL 10 MG SUPP.RECT PR ONE (11:00)
--- NOTE | 2017-02-14 11:26 | PDOC PROGRESS REPORT ---
Subjective Progress Note for:: 02/14/17 Subjective:: Pt is seen on morning rounds just after finishing his breakfast. He states that he is feeling well this morning. He has no health questions or concerns today. He denies dyspnea, orthopnea, cough, chest pain, abdominal pain, consitipation. He does report 3 episodes of vomiting two days ago, but denies nausea and emesis overnight. Nursing does report that he experienced dyspnea at 0600 this morning lasting several minutes that has improved with Duonebs. Pt is currently maintaing oxygen saturations on room air and is conversational without dyspnea. He is alert and oriented x 3, but pleasantly confused with regard to situation and has questions about his bill for breakfast and asks when he will be moving to his next room. Per nursing he has been slightly irritable this morning and more confused as compared to yesterday evening. Physical Exam Vital Signs: Temp Pulse Resp BP Pulse Ox 98.4 F 108 H 20 102/78 100 02/14/17 08:40 02/14/17 08:40 02/14/17 08:40 02/14/17 08:40 02/14/17 08:40 Intake & Output 02/13/17 02/14/17 02/15/17 06:59 06:59 06:59 Intake Total 2314 2473 Output Total 925 2200 Balance 1389 273 Weight 81.7 kg 84 kg General appearance: PRESENT: no acute distress, hard of hearing, well-developed , well-nourished, other - overweight Head exam: PRESENT: atraumatic, normocephalic Eye exam: PRESENT: conjunctiva pink, EOMI, PERRLA. ABSENT: scleral icterus Ear exam: PRESENT: normal external ear exam Mouth exam: PRESENT: moist, tongue midline Neck exam: ABSENT: carotid bruit, JVD, lymphadenopathy, thyromegaly Respiratory exam: PRESENT: crackles - Rt>Lt, decreased breath sounds - bibasilar , symmetrical, unlabored. ABSENT: rales, rhonchi, tachypnea, wheezes Cardiovascular exam: PRESENT: RRR. ABSENT: diastolic murmur, rubs, systolic murmur Pulses: PRESENT: normal dorsalis pedis pul Vascular exam: PRESENT: normal capillary refill GI/Abdominal exam: PRESENT: normal bowel sounds, soft. ABSENT: distended, guarding, mass, organolmegaly, rebound, tenderness Rectal exam: PRESENT: deferred Gentrourinary exam: PRESENT: indwelling catheter Extremities exam: PRESENT: full ROM. ABSENT: calf tenderness, clubbing, pedal edema Neurological exam: PRESENT: alert, awake, oriented to person, oriented to place , oriented to time, CN II-XII grossly intact. ABSENT: oriented to situation - intermittent; pleasantly confused, motor sensory deficit Psychiatric exam: PRESENT: appropriate affect, normal mood. ABSENT: homicidal ideation, suicidal ideation Skin exam: PRESENT: dry, intact, warm. ABSENT: cyanosis, rash Results Laboratory Results: 02/14/17 06:43 02/14/17 06:43 02/14/17 02/14/17 06:43 06:43 WBC 9.8 RBC 3.68 L Hgb 11.3 L Hct 33.3 L MCV 91 MCH 30.8 MCHC 34.0 RDW 15.0 H Plt Count 131 L Seg Neutrophils % 81.0 H Lymphocytes % 8.5 L Monocytes % 8.1 Eosinophils % 2.1 Basophils % 0.3 Absolute Neutrophils 7.9 Absolute Lymphocytes 0.8 Absolute Monocytes 0.8 Absolute Eosinophils 0.2 Absolute Basophils 0.0 Sodium 144.8 Potassium 3.6 Chloride 108 H Carbon Dioxide 24 Anion Gap 13 BUN 11 Creatinine 0.73 Est GFR ( Amer) > 60 Est GFR (Non-Af Amer) > 60 Glucose 97 Calcium 8.5 02/12/17 02/13/17 04:49 04:32 NT-Pro-B Natriuret Pep 20248 H 6550 H Impressions: Abdomen/Pelvis CT 02/11/17 17:12 IMPRESSION: Prominent rectal stool burden. Diffuse mesenteric fat stranding without nidus of infection evident. Essentially stable CT appearance of the abdomen and pelvis. Chest X-Ray 02/11/17 21:48 IMPRESSION: 1. Retrocardiac opacity may represent consolidation versus atelectasis. Consider dedicated PA/ Lat imaging when feasible. 2. Placement of an enteric tube which appears looped within the thoracic esophagus with the tip projecting at the level of the clavicular heads and the caudal most portion of the loop at the level of the distal thoracic esophagus. Recommend reposition. Acute Abdomen Series 02/14/17 07:00 IMPRESSION: Cardiomegaly with vascular congestion and interstitial edema. Right-sided perihilar airspace opacity, may represent pulmonary edema, superimposed pneumonia is not excludable. Nonobstructive bowel gas pattern. Large stool ball at the rectum, please correlate for constipation/fecal impaction. Assessment & Plan - Diagnosis (1) UTI (urinary tract infection) Qualifiers: Urinary tract infection type: acute cystitis Hematuria presence: with hematuria Qualified Code(s): N30.01 - Acute cystitis with hematuria Plan: Pt with a chronic indwelling Anderson catheter that was present on admission. Anderson catheter has been replaced. Urine culture (final): P. mirabilis and K. pneumoniae Blood culture: Gram positive cocci in one bottle; likely a contaminant. Pt has received 3 days of IV Rocephin; appropriate coverage and duration for uncomplicated UTI. Will discontinue Rocephin today. (2) Fecal impaction Is this a current diagnosis for this admission?: Yes Plan: The patient was disimpacted in the emergency room and he was started on an aggressive bowel regimen. He had multiple bowel movements yesterday and so his MiraLAX and scheduled enemas were discontinued. His Colace was continued once daily. This morning the patient developed shortness of breath and there was concern of potential aspiration secondary to obstipation. Acute abdominal series demonstrated a nonobstructive bowel gas pattern with a large stool ball at the rectum. This increases suspicion that his bowel movements were actually overflow stool incontinence. 1- Dulcolax suppository 2- Manual disimpaction 3- Clear liquid diet (3) Positive blood culture Is this a current diagnosis for this admission?: Yes Plan: The patient has 1 out of 2 blood cultures positive for gram-positive cocci. This is likely contaminant. He has been receiving IV vancomycin and Rocephin. Rocephin discontinued today after 3 days of therapy; vancomycin will be continued until cultures finalize. Repeat blood cultures for verification will be obtained today. (4) Thrombocytopenia Is this a current diagnosis for this admission?: Yes Plan: Improving. Thrombocytopenia is of undetermined significance at this point. It may be related to his acute urinary tract infection. He will continue to receive heparin therapy for DVT prophylaxis unless platelets drop below 100. We will continue to monitor. (5) Chronic combined systolic and diastolic CHF (congestive heart failure) Is this a current diagnosis for this admission?: Yes Plan: Chronic combined systolic and diastolic CHF; echocardiogram completed November 2016 shows LVEF 40%. Patient did have some dyspnea early this morning that has improved after a DuoNeb. On exam he is noted to have bilateral crackles. Chest x-ray this morning showed vascular congestion with interstitial edema and right-sided perihilar airspace opacity which may be pharmaceutical service representative of pulmonary edema or pneumonia. Will provide gentle diuresis with low-dose IV Lasix and continue to monitor. 1- Lasix 20 mg IV now 2- Lasix 10 mg p.o. daily 3- Daily weights (7) Acute kidney injury Plan: Secondary to dehydration. Creatinine returned to baseline; currently 0.73. (8) Anemia Qualifiers: Anemia type: unspecified type Qualified Code(s): D64.9 - Anemia, unspecified Is this a current diagnosis for this admission?: Yes Plan: Anemia of chronic disease with hemodilution following IV fluids. Hemoglobin trending upwards today (12.9-->11.5-->10.0-->11.3). Will continue to monitor. (9) Hypernatremia Is this a current diagnosis for this admission?: Yes Plan: Resolved. Secondary to dehydration. We will continue to monitor. (10) COPD (chronic obstructive pulmonary disease) Qualifiers: COPD type: unspecified COPD Qualified Code(s): J44.9 - Chronic obstructive pulmonary disease, unspecified Plan: No evidence of exacerbation. Patient is maintained on Anoro at home; which is not formulary and so unavailable to him at this time. DuoNeb's will be ordered as needed. - Time Time Spent with patient: 25-34 minutes Anticipated discharge: SNF Within: within 72 hours - Inpatient Certification Medical Necessity: Need for IV Antibiotics
[2017-02-14] MEDS: VANCOMYCIN HCL 1,000 MG in DEXTROSE 5%-WATER 250 ML IV SCH ×2 (12:13→22:24)
[2017-02-14] MEDS ORDERED: BUSPIRONE HCL 10 MG TABLET PO ONE (14:00)
[2017-02-14] MEDS ORDERED: LORAZEPAM INJ 2 MG/1 ML VIAL IV ONE (14:00)
[2017-02-14] MEDS ORDERED: HALOPERIDOL LACTATE INJ 5 MG/1 ML VIAL IM ONE (15:30)
[2017-02-14] MEDS ORDERED: HALOPERIDOL LACTATE INJ 5 MG/1 ML VIAL IV PRN (17:34)
[2017-02-14] MEDS ORDERED: LORAZEPAM INJ 2 MG/1 ML VIAL IV PRN (17:34)
[2017-02-14] MEDS: ATORVASTATIN CALCIUM 40 MG TABLET PO SCH (22:24)
[2017-02-14] MEDS: NYSTATIN CREAM 15 GM TP SCH (22:25)
[2017-02-14 22:36] LABS: CREATININE RESULT 0.83 mg/dL (0.52-1.25)
[2017-02-15] MEDS: HEPARIN SOD (PORCINE) 5,000 UNIT/ML 1 ML SYRINGE SUBCUT SCH ×3 (05:39→22:36)
[2017-02-15] MEDS: QUETIAPINE FUMARATE 25 MG TABLET PO SCH ×3 (05:39→22:51)
[2017-02-15 07:24] LABS: HEMATOCRIT 33.7 % (37.9-51.0); HEMOGLOBIN 11.4 g/dL (13.5-17.0); HGB HCT DIFFERENCE 0.5; MEAN CORPUSCULAR HEMOGLOBIN 30.4 pg (27.0-33.4); MEAN CORPUSCULAR HGB CONC 33.9 g/dL (32.0-36.0); MEAN CORPUSCULAR VOLUME 90 fl (80-97); RED BLOOD COUNT 3.75 10^6/uL (4.35-5.55); RED CELL DISTRIBUTION WIDTH 14.8 % (11.5-14.0); WHITE BLOOD COUNT 6.8 10^3/uL (4.0-10.5)
[2017-02-15 08:01] LABS: ANION GAP 14 (5-19); BLOOD UREA NITROGEN 11 mg/dL (7-20); CALCIUM 8.8 mg/dL (8.4-10.2); CARBON DIOXIDE 26 mmol/L (22-30); CHLORIDE 105 mmol/L (98-107); CREATININE RESULT 0.83 mg/dL (0.52-1.25); GLUCOSE 88 mg/dL (75-110); POTASSIUM 3.5 mmol/L (3.6-5.0); SODIUM 144.9 mmol/L (137-145)
[2017-02-15] MEDS: IPRATROPIUM/ALBUTEROL 0.5-2.5 MG/3 ML AMPUL NEB SCH (08:01)
[2017-02-15] MEDS ORDERED: IPRATROPIUM/ALBUTEROL 0.5-2.5 MG/3 ML AMPUL NEB PRN (09:22)
[2017-02-15] MEDS ORDERED: ALBUTEROL SULFATE HFA (90 MCG/PUFF) 8 GM MDI (1 MDI/ER DISP) IH PRN (09:24)
[2017-02-15] MEDS ORDERED: CEFUROXIME 500 MG TABLET PO SCH (09:30)
[2017-02-15] MEDS ORDERED: ALBUTEROL SULFATE HFA (90 MCG/PUFF) 200 PUFF/8.5 GM MDI IH PRN (09:34)
--- NOTE | 2017-02-15 10:16 | PROGRESS NOTE E ---
Progress Note NAME: JESENIA LÓPEZ : 1940 AGE: 76Y DATE: 02/15/2017 ROOM: 538 CODE STATUS: DO NOT RESUSCITATE/DO NOT INTUBATE. CHIEF COMPLAINT: Unable to be obtained. SUBJECTIVE: The patient is lying in bed. The patient is awake and alert. He will answer questions but nonsensically. The patient was able to deny any pain. There have been no reported episodes of vomiting or diarrhea. The patient has been afebrile. His blood pressure has been in a good range and the patient is unable to voice any concerns at this time. REVIEW OF SYSTEMS: A full review of systems cannot be appreciated due to the patient's mental status. MEDICATIONS: Medications have been reviewed. OBJECTIVE: GENERAL: The patient is a 76-year-old male who is awake and alert, unable to fully assess orientation. He does not appear to be in any acute distress. VITAL SIGNS: Temperature 98.5, pulse 85, respirations 20, blood pressure 128/80, oxygen saturation is 95% on room air. SKIN: Warm and dry, no rash, not diaphoretic. HEENT: Pupils equal, round, reactive to light and accommodation. Conjunctivae are pink. No JVP. CARDIOVASCULAR: Heart is regular with no murmur or rub. CHEST: Clear, symmetrical, unlabored. ABDOMEN: Soft, nontender, nondistended. BACK: No CVA tenderness or sacral edema. EXTREMITIES: No clubbing, cyanosis, edema. PSYCHIATRIC: The patient is demented. DIAGNOSTICS: Lab values are as follow: Hematology obtained on 02/15/2017: WBCs are 6.8, hemoglobin is 11.4, hematocrit is 33.7, platelet count is 136,000. Chemistry obtained on 02/15/2017: Sodium is 144, potassium 3.5, chloride is 105, carbon dioxide 26, BUN 11, creatinine is 0.83, glucose 88, calcium is 8.8. BNP is 10,200. Blood cultures obtained on 02/14/2017 are pending. IMPRESSION AND PLAN: 1. PROTEUS PNEUMONIAE URINARY TRACT INFECTION WITH CHRONIC INDWELLING PADGETT. The patient received 4 days of IV Rocephin. Will transition over to oral Ceftin today and follow. 2. POSITIVE BLOOD CULTURES. This was one set. The other set was negative and the other 2 sets are pending. Given that this was just in one set and it is polymicrobial in origin, I have a strong suspicion this is a contaminant. The patient has no evidence of systemic bacteremia at this time but will await other cultures and follow. 3. THROMBOCYTOPENIA. Overall this is improving. Most likely it was due to his urinary tract infection. 4. [id number] SYSTOLIC AND DIASTOLIC CONGESTIVE HEART FAILURE. The patient's last EF was noted to be about 40%. The patient was diuresed yesterday. Will resume his home dose of Lasix and follow. 5. ACUTE KIDNEY INJURY. This was secondary to dehydration. He has now returned to baseline. 6. ANEMIA OF CHRONIC DISEASE. Hemoglobin overall has been relatively stable. 7. HYPERNATREMIA DUE TO DEHYDRATION. This has resolved. 8. CHRONIC OBSTRUCTIVE PULMONARY DISEASE. Will continue the patient's home medications. 9. ACUTE ENCEPHALOPATHY. Most likely secondary to #1. Have resumed the patient's home medications including Seroquel. 10. GENERAL DEBILITY. Will have the patient work with physical therapy. DISPOSITION: The patient is a DO NOT RESUSCITATE/DO NOT INTUBATE. Pending patient's symptomatology and diagnostic findings, will reevaluate in the a.m. for possible discharge. Time spent on this followup including assessment, plan, physical examination, patient education, review of previous and current medical records is 30 minutes. DICTATING PHYSICIAN: GRICELDA NEWMAN NP [id number] PHY#: [id number] ID: [id number] JOB#: [id number] ACCT: [id number] cc: > [facility]
[2017-02-15] MEDS: TAMSULOSIN HCL 0.4 MG CAP.SR.24H PO SCH (11:02)
[2017-02-15] MEDS: SENNOSIDES/DOCUSATE 8.6-50 MG 1 EACH TABLET PO SCH (11:02)
[2017-02-15] MEDS: ASPIRIN 325 MG TABLET PO SCH (11:02)
[2017-02-15] MEDS: CEFUROXIME 500 MG TABLET PO SCH ×2 (11:02→22:51)
[2017-02-15] MEDS: PREDNISONE 20 MG TABLET PO SCH (11:02)
[2017-02-15] MEDS: FERROUS SULFATE 325 MG TABLET PO SCH ×2 (11:03→18:26)
[2017-02-15] MEDS: DOCUSATE SODIUM 100 MG CAPSULE PO SCH ×2 (11:03→18:26)
[2017-02-15] MEDS: PHENOBARBITAL 64.8 MG TABLET PO SCH ×2 (11:03→22:51)
[2017-02-15] MEDS: FINASTERIDE 5 MG TABLET PO SCH (11:04)
[2017-02-15] MEDS: FUROSEMIDE 20 MG TABLET PO SCH (11:04)
[2017-02-15] MEDS: NYSTATIN CREAM 15 GM TP SCH ×2 (11:12→22:51)
[2017-02-15] MEDS: FLUTICASONE NASAL SPRAY 50 MCG/SPRY 120 SPRAY/16 GM NASL SCH (11:12)
[2017-02-15] MEDS: VANCOMYCIN HCL 1,000 MG in DEXTROSE 5%-WATER 250 ML IV SCH ×2 (11:21→22:49)
[2017-02-15] MEDS ORDERED: ATORVASTATIN CALCIUM 40 MG TABLET PO SCH (22:00)
[2017-02-16] MEDS: HEPARIN SOD (PORCINE) 5,000 UNIT/ML 1 ML SYRINGE SUBCUT SCH (05:51)
[2017-02-16] MEDS: QUETIAPINE FUMARATE 25 MG TABLET PO SCH (05:56)
[2017-02-16] MEDS ORDERED: METOPROLOL SUCCINATE 25 MG TAB.SR.24H PO ONE (08:00)
[2017-02-16 08:51] VITALS: BP 119/84
--- NOTE | 2017-02-16 09:46 | TRANSFER SUMMARY E ---
Transfer Summary NAME: JESENIA LÓPEZ : 1940 AGE: 76Y ADMITTED: 02/11/2017 TRANSFERRED: 02/16/2017 CODE STATUS: DO NOT RESUSCITATE/DO NOT INTUBATE with portable DNR on chart. DISCHARGE DIAGNOSES: 1. PROTEUS URINARY TRACT INFECTION WITHIN A CHRONIC INDWELLING PADGETT. 2. 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 3. 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 The last EF was 40%. The patient now appears euvolemic. 4. ACUTE KIDNEY INJURY WHICH IS IMPROVED. 5. ANEMIA OF CHRONIC DISEASE. 6. HYPERNATREMIA DUE TO DEHYDRATION. This has resolved. 7. CHRONIC OBSTRUCTIVE PULMONARY DISEASE. The patient is at his baseline. 8. ACUTE ENCEPHALOPATHY SECONDARY TO #1. The patient is now at his baseline. 9. GENERAL DEBILITY. 10. FECAL IMPACTION, WHICH HAS BEEN RESOLVED. 11. PAROXYSMAL ATRIAL FIBRILLATION. Currently in sinus rhythm and rate controlled. DISCHARGE MEDICATIONS: 1. Ceftin 500 mg p.o. b.i.d. x4 more doses. 2. Toprol 12.5 mg p.o. q.12 h. 3. Ventolin 2 puff inhalation q.4 h. p.r.n. 4. Aspirin 325 mg p.o. daily. 5. Lipitor 40 mg p.o. every hour of sleep. 6. Colace 100 mg p.o. b.i.d. 7. Ferrous sulfate 325 mg p.o. b.i.d. 8. Proscar 5 mg p.o. daily. 9. Flonase 1 spray in both nostrils daily. 10. Lasix 20 mg p.o. daily. 11. Phenobarbital 64.8 mg p.o. q.12 h. 12. Seroquel 25 mg p.o. q.8 h. 13. Senna laxative 2 tablets p.o. daily. 14. Flomax 0.4 mg p.o. daily. 15. Anoro Ellipta 1 puff inhalation daily. DIET: As tolerated. ACTIVITY: Recommend home health physical therapy. DIAGNOSTICS: Lab values are as follows: Hematology obtained on 02/15/2017: WBCs are 6.8, hemoglobin 11.4, hematocrit 32.7, platelet count is 236,000. Chemistry obtained on 02/15/2017: Sodium is 144, potassium 3.5, chloride 105, carbon dioxide 26, BUN 11, creatinine 0.83, glucose 88, calcium 8.8, magnesium 2.3, bilirubin 0.5, AST 29, ALT 30, alkaline phosphatase 106, total protein 7.4, albumin 4.3, lipase 17.5. Urinalysis obtained on 02/11/2017: Appearance turbid, pH 7.0, specific gravity is 1.014, protein 100, glucose negative, ketones negative, occult blood small, nitrite negative, bilirubin negative, urobilinogen negative, leukocyte esterase moderate, WBC greater than 182, RBC 15, bacteria 3+, WBCs many. Other body sources obtained on 02/11/2017: Gastric occult blood is positive. Stool for occult blood obtained on 02/11/2017 is negative. Microbiology: Urine culture obtained on 02/11/2017 reveals Proteus mirabilis and Klebsiella pneumoniae, both of which were sensitive to ceftriaxone. Blood cultures obtained on 02/12/2017: 1 set grew polymicrobial organisms but the second set did not, further suggesting contamination. Blood cultures obtained on 02/14/2017 reveals no growth. Chest x-ray obtained on 02/11/2017 reveals no acute findings. CT of abdomen and pelvis obtained on 02/11/2017 was suggestive of fecal impaction. Chest x-ray obtained on 02/11/2017: Retrocardiac opacity suggestive of atelectasis. PHYSICAL EXAMINATION: GENERAL: On examination, the patient is a well-developed, well-nourished 76-year-old male who is awake, alert. He is oriented to person and place, not fully oriented to situation, very pleasant, does not appear to be in any acute distress. VITAL SIGNS: Temperature 97.9, pulse 88, respirations 18, blood pressure 119/84, oxygen saturation is 93% on room air. SKIN: Warm and dry, no rash, not diaphoretic. HEENT: Pupils are equal, round, and reactive to light and accommodation. Conjunctivae is pink. There is no JVP. CARDIOVASCULAR: Heart is regular. There is no murmur or rub. CHEST: Clear, symmetrical and unlabored. ABDOMEN: Soft, nontender, nondistended. BACK: No CVA tenderness or sacral edema. EXTREMITIES: No clubbing, cyanosis or edema. PSYCHIATRIC: Quite pleasant. GENITOURINARY: Padgett is draining clear yellow urine. HISTORY OF PRESENT ILLNESS: The patient is a 76-year-old male with a past medical history of chronic indwelling Padgett catheter. The patient presented to the emergency department via EMS from [facility] with a chief complaint of nausea and vomiting. A CT scan of the abdomen and pelvis did reveal significant stool burden, however, no evidence of obstruction. The patient did have some stranding, which could be suggestive of infection as well. The patient did have a UA that was suggestive of UTI, and the patient was referred to the hospitalist for admission and management. HOSPITAL COURSE: The patient was admitted to the continuous telemetry unit. The patient was disimpacted and has had bowel movements since that time. The patient's urine culture revealed Proteus mirabilis and Klebsiella, which was sensitive to ceftriaxone. The patient responded very well to therapy and received 5 days of IV ceftriaxone. The patient did have 1 set of blood cultures that were positive for polymicrobial organisms, which was suggestive of contamination given that the other set was unremarkable as well as 2 additional sets afterwards. The patient's mentation is at baseline and the patient is appropriate for discharge. DISCHARGE PLANNING: The patient is advised to follow up with the primary care provider within 1 week for hospital followup. The patient will be treated for UTI. Additionally a small dose of metoprolol was added given the patient's history of a-fib. Time spent on this discharge including assessment and plan, physical examination, patient education, review of previous and current medical records and resource alignment is 45 minutes. DICTATING PHYSICIAN: GRICELDA NEWMAN NP [id number] PHY#: [id number] ID: [id number] JOB#: [id number] ACCT: [id number] cc:GRICELDA NEWMAN NP >
[2017-02-16] MEDS: SENNOSIDES/DOCUSATE 8.6-50 MG 1 EACH TABLET PO SCH (10:16)
[2017-02-16] MEDS: PHENOBARBITAL 64.8 MG TABLET PO SCH (10:16)
[2017-02-16] MEDS: TAMSULOSIN HCL 0.4 MG CAP.SR.24H PO SCH (10:16)
[2017-02-16] MEDS: ASPIRIN 325 MG TABLET PO SCH (10:16)
[2017-02-16] MEDS: FINASTERIDE 5 MG TABLET PO SCH (10:17)
[2017-02-16] MEDS: FUROSEMIDE 20 MG TABLET PO SCH (10:17)
[2017-02-16] MEDS: FERROUS SULFATE 325 MG TABLET PO SCH (10:17)
[2017-02-16] MEDS: PREDNISONE 20 MG TABLET PO SCH (10:17)
[2017-02-16] MEDS: DOCUSATE SODIUM 100 MG CAPSULE PO SCH (10:18)
[2017-02-16] MEDS: CEFUROXIME 500 MG TABLET PO SCH (10:19)
[2017-02-16] MEDS: FLUTICASONE NASAL SPRAY 50 MCG/SPRY 120 SPRAY/16 GM NASL SCH (10:26)
[2017-02-16] MEDS: NYSTATIN CREAM 15 GM TP SCH (10:26)
[2017-02-16] MEDS ORDERED: METOPROLOL SUCCINATE 25 MG TAB.SR.24H PO SCH (22:00)
== END 2017-02-16 13:51 | DRG 698 ==
LOC: ER 16:47 → EH 23:10 → UNDOADMIN 23:36 → EH 23:36 → 5 02-12 01:00
PROVIDERS: ADMIT Internal Medicine; ATTEND Internal Medicine
PROC: 3E0F73Z Introduction of Anti-inflammatory into Respiratory Tract, Via Natural or Artificial Opening (ICD-10-PCS; principal; 2017-02-11)
PROC: 3E0234Z Introduction of Serum, Toxoid and Vaccine into Muscle, Percutaneous Approach (ICD-10-PCS; 2017-02-16)
DX: T83.511A Infection and inflammatory reaction due to indwelling urethral catheter, initial encounter (principal); G93.40 Encephalopathy, unspecified; I50.43 Acute on chronic combined systolic (congestive) and diastolic (congestive) heart failure; N17.9 Acute kidney failure, unspecified; E87.0 Hyperosmolality and hypernatremia; N39.0 Urinary tract infection, site not specified; Y84.6 Urinary catheterization as the cause of abnormal reaction of the patient, or of later complication, without mention of misadventure at the time of the procedure; B96.4 Proteus (mirabilis) (morganii) as the cause of diseases classified elsewhere; E86.0 Dehydration; I48.0 Paroxysmal atrial fibrillation; D69.6 Thrombocytopenia, unspecified; J44.9 Chronic obstructive pulmonary disease, unspecified; D64.9 Anemia, unspecified; K56.41 Fecal impaction; R33.9 Retention of urine, unspecified; Z87.891 Personal history of nicotine dependence; Z95.5 Presence of coronary angioplasty implant and graft; Z82.49 Family history of ischemic heart disease and other diseases of the circulatory system; Z87.440 Personal history of urinary (tract) infections; Z66 Do not resuscitate; Z78.1 Physical restraint status; Z79.82 Long term (current) use of aspirin; Z79.51 Long term (current) use of inhaled steroids; Z23 Encounter for immunization
CPT/HCPCS: 36415; 51702; 71010; 74022; 74177; 80048; 80053; 80202; 81001; 82271; 82272; 82565; 83690; 83735; 83880; 85025; 85027; 87040; 87077; 87086; 87088; 87186; 90686; 94640; 96361; 96365; 96375; 99285; G8978-GP; G8979-GP; J0696; J1630; J1644; J1940; J1956; J2060; J2405; J3370; J3480; J3490; J7030; J7060; J7512; J7620

== ENCOUNTER 2017-03-17 19:13 | Emergency (ER) | payer MEDICARE ==
[2017-03-17] MEDS ORDERED: MORPHINE SULFATE 10 MG/ML INJ IV ONE (20:01)
[2017-03-17] MEDS ORDERED: NORMAL SALINE 1000 ML 1,000 ML IV ONE (20:01)
[2017-03-17] MEDS ORDERED: ONDANSETRON HCL INJ/PF 4 MG/2 ML SDV IV ONE (20:01)
--- NOTE | 2017-03-17 20:04 | ER Document Report ---
ED GI/ - General Chief Complaint: Scrotal Pain, Acute Onset Stated Complaint: ABDOMINAL PAIN Time Seen by Provider: 03/17/17 19:28 Notes: 76 years old male was brought in because of lower abdominal pain radiating to the scrotum since this morning associated with nausea. Did not vomit. No fever chills. No other constitutional symptoms. Denies any cough or shortness of breath. He has indwelling catheter for over a year. Catheter was changed yesterday. TRAVEL OUTSIDE OF THE [place] IN LAST 30 DAYS: No - Related Data Allergies/Adverse Reactions: No Known Allergies Allergy (Verified 11/25/16 01:51) Past Medical History - Social History Smoking Status: Former Smoker Family History: Reviewed & Not Pertinent, Hypertension - Past Medical History Cardiac Medical History: Reports: Hx 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, Hx Heart Attack Denies: Hx DVT, Hx Pulmonary Embolism Pulmonary Medical History: Reports: Hx COPD Denies: Hx Tuberculosis Neurological Medical History: Reports: Hx Seizures - Last episode April 2016 Renal/ Medical History: Denies: Hx Peritoneal Dialysis GI Medical History: Reports: Hx Hiatal Hernia. Denies: Hx Cirrhosis, Hx Gastroesophageal Reflux Disease, Hx Hepatitis Musculoskeltal Medical History: Denies Hx Arthritis Psychiatric Medical History: Denies: Hx Bipolar Disorder, Hx Dementia, Hx Depression Infectious Medical History: Denies: Hx Hepatitis Past Surgical History: Reports: Hx Abdominal Surgery - perforated hernia, Hx Cardiac Surgery - STENT, Hx Coronary Stent - Immunizations Hx Diphtheria, Pertussis, Tetanus Vaccination: Yes Hx Pneumococcal Vaccination: 01/02/11 Review of Systems - Review of Systems Notes: REVIEW OF SYSTEMS: CONSTITUTIONAL : Denies fever, chills, or sweats. Denies recent illness. EENT: Denies eye, ear, throat, or mouth pain or symptoms. Denies nasal or sinus congestion or discharge. Denies throat, tongue, or mouth swelling or difficulty swallowing. CARDIOVASCULAR: Denies chest pain. Denies palpitations or racing or irregular heart beat. Denies ankle edema. RESPIRATORY: Denies cough, cold, or chest congestion. Denies shortness of breath, difficulty breathing, or wheezing. GASTROINTESTINAL: As per history of complain stools, or per rectum. Denies black, tarry stools. Denies constipation. GENITOURINARY: Denies difficulty urinating, painful urination, burning, frequency, blood in urine, or discharge. MUSCULOSKELETAL: Denies back or neck pain or stiffness. Denies joint pain or swelling. SKIN: Denies rash, lesions or sores. HEMATOLOGIC : Denies easy bruising or bleeding. LYMPHATIC: Denies swollen, enlarged glands. NEUROLOGICAL: Denies confusion or altered mental status. Denies passing out or loss of consciousness. Denies dizziness or lightheadedness. Denies headache. Denies weakness or paralysis or loss of use of either side. Denies problems with gait or speech. Denies sensory loss, numbness, or tingling. Denies seizures. PSYCHIATRIC: Denies anxiety or stress. Denies depression, suicidal ideation, or homicidal ideation. ALL OTHER SYSTEMS REVIEWED AND NEGATIVE. Dictation was performed using [employer] voice recognition software PHYSICAL EXAMINATION: GENERAL: Well-appearing, well-nourished and in no acute distress. HEAD: Atraumatic, normocephalic. EYES: Pupils equal round and reactive to light, extraocular movements intact, sclera anicteric, conjunctiva are normal. ENT: Nares patent, oropharynx clear without exudates. Moist mucous membranes. NECK: Normal range of motion, supple without lymphadenopathy LUNGS: Breath sounds clear to auscultation bilaterally and equal. No wheezes rales or rhonchi. HEART: Regular rate and rhythm without murmurs ABDOMEN: Soft, diffuse tenderness particularly over the lower abdomen, distended tympanic on percussion. Positive bowel sounds in all 4 quadrants.. No guarding, no rebound. No masses appreciated. Musculoskeletal: Normal range of motion, no pitting or edema. No cyanosis. NEUROLOGICAL: Cranial nerves grossly intact. Normal speech, normal gait. Normal sensory, motor exams PSYCH: Normal mood, normal affect. SKIN: Warm, Dry, normal turgor, no rashes or lesions noted. Physical Exam - Vital signs Vitals: Temp Pulse Resp BP Pulse Ox 99.2 F 76 20 117/57 L 97 03/17/17 19:13 03/17/17 19:13 03/17/17 19:13 03/17/17 19:13 03/17/17 19:13 Course - Re-evaluation Re-evalutation: 03/17/17 23:44 Pt feeling better - Vital Signs Vital signs: Temp Pulse Resp BP Pulse Ox 98 F 78 16 114/51 L 96 03/17/17 23:36 03/17/17 23:36 03/17/17 23:36 03/17/17 23:36 03/17/17 23:36 - Laboratory Result Diagrams: 03/17/17 20:20 03/17/17 20:20 Laboratory results interpreted by me: 03/17/17 03/17/17 20:20 20:40 WBC 11.5 H RBC 3.57 L Hgb 11.0 L Hct 32.4 L RDW 15.2 H Seg Neutrophils % 78.2 H Lymphocytes % 11.3 L Absolute Neutrophils 9.0 H Urine Protein 100 H Urine Blood MODERATE H Urine Nitrite POSITIVE H Ur Leukocyte Esterase LARGE H Urine Ascorbic Acid 20 H - Diagnostic Test Radiology results interpreted by me: 03/17/17 23:43 CT of abdomen-Non obstructing Umbilical herna Discharge - Discharge Clinical Impression: UTI (urinary tract infection) due to urinary indwelling Anderson catheter Qualifiers: Indwelling urinary catheter type: indwelling urethral catheter Encounter type: initial encounter Qualified Code(s): T83.511A - Infection and inflammatory reaction due to indwelling urethral catheter, initial encounter; N39.0 - Urinary tract infection, site not specified; N39.0 - Urinary tract infection, site not specified Umbilical hernia Qualifiers: Obstruction and gangrene presence: without obstruction or gangrene Qualified Code(s): K42.9 - Umbilical hernia without obstruction or gangrene Condition: Fair Instructions: Nitrofurantoin ([facility]), Urinary Tract Infection, Child ([facility]) Prescriptions: Nitrofurantoin Macrocrystal [Macrodantin] 100 mg PO BID #20 capsule
[2017-03-17 20:49] LABS: ABSOLUTE EOSINOPHILS # (AUTO) 0.2 10^3/uL (0.0-0.6); ABSOLUTE LYMPHOCYTES (AUTO) 1.3 10^3/uL (0.5-4.7); BASOPHILS % (AUTO) 0.3 % (0-2); EOSINOPHILS % (AUTO) 1.8 % (0-6); HEMATOCRIT 32.4 % (37.9-51.0); HGB HCT DIFFERENCE 0.6; LYMPHOCYTES % (AUTO) 11.3 % (13-45); MEAN CORPUSCULAR HEMOGLOBIN 30.8 pg (27.0-33.4); MEAN CORPUSCULAR HGB CONC 33.8 g/dL (32.0-36.0); MEAN CORPUSCULAR VOLUME 91 fl (80-97); MONOCYTES % (AUTO) 8.4 % (3-13); RED BLOOD COUNT 3.57 10^6/uL (4.35-5.55); RED CELL DISTRIBUTION WIDTH 15.2 % (11.5-14.0); SEGMENTED NEUTROPHILS % (AUTO) 78.2 % (42-78); WHITE BLOOD COUNT 11.5 10^3/uL (4.0-10.5)
[2017-03-17 21:13] LABS: ALANINE AMINOTRANSFERASE 31 U/L (21-72); ALBUMIN 3.9 g/dL (3.5-5.0); ALKALINE PHOSPHATASE 101 U/L (38-126); ANION GAP 10 (5-19); ASPARTATE AMINO TRANSFERASE 25 U/L (17-59); BILIRUBIN,DIRECT 0.2 mg/dL (0.0-0.4); BILIRUBIN,TOTAL 0.2 mg/dL (0.2-1.3); BLOOD UREA NITROGEN 19 mg/dL (7-20); CALCIUM 9.4 mg/dL (8.4-10.2); CARBON DIOXIDE 29 mmol/L (22-30); CHLORIDE 104 mmol/L (98-107); CREATININE RESULT 0.94 mg/dL (0.52-1.25); GLUCOSE 91 mg/dL (75-110); SODIUM 143.4 mmol/L (137-145); TOTAL PROTEIN 7.1 g/dL (6.3-8.2)
[2017-03-17 21:23] LABS: APPEARANCE,URINE SLIGHTLY-CLOUDY; BILIRUBIN,URINE NEGATIVE (NEGATIVE); GLUCOSE, URINE NEGATIVE (NEGATIVE); KETONES,URINE NEGATIVE (NEGATIVE); LEUKOCYTE ESTERASE,URINE LARGE (NEGATIVE); NITRITE,URINE POSITIVE (NEGATIVE); PROTEIN,URINE 100 mg/dL (NEGATIVE); URINE SPECIFIC GRAVITY 1.025; UROBILINOGEN,URINE NEGATIVE mg/dL (<2.0)
--- NOTE | 2017-03-17 22:28 | RADIOLOGY REPORT (SQ) ---
EXAM DESCRIPTION: CT ABD/PELVIS WITH IV ONLY COMPLETED DATE/TIME: 03/17/2017 10:02 pm REASON FOR STUDY: Abdominal pain COMPARISON: 02/11/2017 TECHNIQUE: CT scan of the abdomen and pelvis performed using helical scanning technique with dynamic intravenous contrast injection. No oral contrast. Images reviewed with lung, soft tissue, and bone windows. Reconstructed coronal and sagittal MPR images reviewed. Delayed images for evaluation of the urinary system also acquired. All images stored on PACS. All CT scanners at this facility use dose modulation, iterative reconstruction, and/or weight based d osing when appropriate to reduce radiation dose to as low as reasonably achievable (ALARA). [facility]: Dose Right [facility]: CareDose [facility]: Dose Right [facility]: Teradose 4D [facility]: [employer] CONTRAST TYPE AND DOSE: contrast/concentration: Isovue 370.00 mg/ml; Total Contrast Delivered: 100.0 ml; Total Saline Delivered: 52.0 ml RENAL FUNCTION: GFR > 60. RADIATION DOSE: CT Rad equipment meets quality standard of care and radiation dose reduction techniq ues were employed. CTDIvol: 10.6 mGy. DLP: 1125 mGy-cm.. LIMITATIONS: None. FINDINGS: LOWER CHEST: Mild subsegmental atelectasis in the lower lobes. Similar small hiatus herni a. LIVER: Normal size. No masses. No dilated ducts. SPLEEN: Normal size. No focal lesions. PANCREAS: No masses. No significant calcifications. No adjacent inflammation or peripancreatic fluid collections. Pancreatic duct not dilated. GALLBLADDER: No identified stones by CT criteria. No inflammatory changes to suggest cholecystitis. ADRENAL GLANDS: Similar left adrenal nodularity. RIGHT KIDNEY AND URETER: No solid masses. No significant calcifications. No hydronephrosis or hyd roureter. LEFT KIDNEY AND URETER: No solid masses. No significant calcifications. No hydronephrosis or hydr oureter. AORTA AND VESSELS: No aneurysm. No dissection. Renal arteries, SMA, celiac are patent. RETROPERITONEUM: No retroperitoneal adenopathy, hemorrhage or masses. BOWEL AND PERITONEAL CAVITY: New 15 mm paraumbilical ventral hernia containing a small section of sma ll bowel, no definite obstruction or evidence of strangulation.No acute inflammatory changes. No free fluid or peritoneal masses. APPENDIX: Normal. PELVIS: No free fluid. Anderson catheter in the bladder. ABDOMINAL WALL: No masses. No hernias. BONES: No significant or acute findings. OTHER: No other significant finding. IMPRESSION: New 15 mm paraumbilical ventral hernia containing a small section of small bowel, no def inite obstruction or evidence of strangulation. Otherwise stable CT appearance of the abdomen and pe lvis. Mild subsegmental atelectasis in the lower lobes. TECHNICAL DOCUMENTATION: JOB ID: [id number] [place]-72 Quality ID # [id number]: Final reports with documentation of one or more dose reduction techniques (e.g., Au tomated exposure control, adjustment of the mA and/or kV according to patient size, use of iterative reconstruction technique) 2010 [employer]- All Rights Reserved
[2017-03-17] MEDS ORDERED: NITROFURANTOIN 5 MG/ML SUSP 60 ML PO ONE (23:45)
[2017-03-17] MEDS ORDERED: NITROFURANTOIN 5 MG/ML SUSP 60 ML PO SCH (23:45)
[2017-03-18] MEDS ORDERED: NITROFURANTOIN MONOHYD/M-CRYST 100 MG CAPSULE PO ONE (00:44)
[2017-03-18 01:47] VITALS: BP 117/70
== END 2017-03-18 01:40 ==
LOC: ER 19:13
DX: T83.511A Infection and inflammatory reaction due to indwelling urethral catheter, initial encounter (principal); Y84.6 Urinary catheterization as the cause of abnormal reaction of the patient, or of later complication, without mention of misadventure at the time of the procedure; K42.9 Umbilical hernia without obstruction or gangrene; R11.0 Nausea; I25.2 Old myocardial infarction; J44.9 Chronic obstructive pulmonary disease, unspecified; Z95.5 Presence of coronary angioplasty implant and graft; Z87.891 Personal history of nicotine dependence
CPT/HCPCS: 99285; 96361; 96374; 96375; 36415; 87086; 83690; 85025; 87088; 80076; 80048; 81001; 87186; 74177; J2270; J2405; J7030; A9270; J3490; J8499

== ENCOUNTER 2017-05-29 16:53 | Emergency (ER) | payer MEDICARE ==
--- NOTE | 2017-05-29 17:06 | ER Document Report ---
ED GI/ - General Chief Complaint: Abdominal Pain >50 Stated Complaint: ABDOMINAL PAIN Notes: The patient is a 77-year-old male, past medical history BPH with chronic indwelling Anderson, [facility] after he was found to be diaphoretic and very uncomfortable. He is having lower abdominal pain. Patient is writhing in the bed and appears uncomfortable. Unable to obtain any additional history. TRAVEL OUTSIDE OF THE [place] IN LAST 30 DAYS: No - Related Data Allergies/Adverse Reactions: No Known Allergies Allergy (Verified 05/29/17 18:03) Past Medical History - General Information source: Patient, Relative, Emergency Med Personnel - Social History Smoking Status: Unknown if Ever Smoked Family History: Reviewed & Not Pertinent, Hypertension - Past Medical History Cardiac Medical History: Reports: Hx Atrial Fibrillation, Hx 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, Hx Heart Attack Denies: Hx DVT, Hx Pulmonary Embolism Pulmonary Medical History: Reports: Hx COPD Denies: Hx Tuberculosis Neurological Medical History: Reports: Hx Seizures - Last episode April 2016 Renal/ Medical History: Denies: Hx Peritoneal Dialysis GI Medical History: Reports: Hx Hiatal Hernia. Denies: Hx Cirrhosis, Hx Gastroesophageal Reflux Disease, Hx Hepatitis Musculoskeltal Medical History: Denies Hx Arthritis Psychiatric Medical History: Denies: Hx Bipolar Disorder, Hx Dementia, Hx Depression Infectious Medical History: Denies: Hx Hepatitis Past Surgical History: Reports: Hx Abdominal Surgery - perforated hernia, Hx Cardiac Surgery - STENT, Hx Coronary Stent - Immunizations Hx Diphtheria, Pertussis, Tetanus Vaccination: Yes Hx Pneumococcal Vaccination: 01/02/11 Review of Systems - Review of Systems -: Yes ROS unobtainable due to patient's medical condition Gastrointestinal: Abdominal pain - lower Physical Exam - Vital signs Vitals: Temp Pulse Resp BP Pulse Ox 98.4 F 94 16 112/95 H 97 05/29/17 17:10 05/29/17 17:10 05/29/17 17:10 05/29/17 17:10 05/29/17 17:10 - Notes Notes: PHYSICAL EXAMINATION: GENERAL: Appears uncomfortable, writhing in bed HEAD: Atraumatic, normocephalic. EYES: Pupils equal round and reactive to light, extraocular movements intact, sclera anicteric, conjunctiva are normal. ENT: nares patent, oropharynx clear without exudates. Moist mucous membranes. NECK: Normal range of motion, supple without lymphadenopathy LUNGS: Breath sounds clear to auscultation bilaterally and equal. No wheezes rales or rhonchi. HEART: Regular rate and rhythm without murmurs ABDOMEN: Umbilical hernia that is reducible and nontender, moderate lower abdominal distention and tenderness, normal bowel sounds EXTREMITIES: Normal range of motion, no pitting or edema. No cyanosis. Strong distal pulses. NEUROLOGICAL: Moves all 4 extremities. SKIN: Warm, Dry, normal turgor, no rashes or lesions noted. Course - Re-evaluation Re-evalutation: Patient seen immediately on arrival and he appears ill. He is writhing on the bed and is diaphoretic. Concern for aortic dissection or AAA with rupture due to his lower abdominal pain. Patient emergently brought to CT scan. Patient found to have a very distended bladder with Anderson obstruction, but luckily no evidence of AAA or aortic dissection. Blood work is remarkable for elevated lactate and leukocytosis and his urinalysis shows evidence of a UTI. Looking through prior urine micro cultures, will begin patient on doxycycline and Levaquin. His blood pressure is normal, he is afebrile and he is much more comfortable after his Anderson was changed and urinary obstruction was relieved. 750 mL urine returned. Pt is not in septic shock. Will send patient [facility] to the [facility] with antibiotics and strict return precautions. - Vital Signs Vital signs: Temp Pulse Resp BP Pulse Ox 98.4 F 94 17 102/57 L 94 05/29/17 17:10 05/29/17 17:10 05/29/17 19:02 05/29/17 19:02 05/29/17 19:02 - Laboratory Result Diagrams: 05/29/17 17:30 05/29/17 17:30 Laboratory results interpreted by me: 05/29/17 05/29/17 05/29/17 17:30 17:30 17:30 WBC 13.6 H RDW 14.2 H Seg Neutrophils % 89.7 H Lymphocytes % 5.7 L Absolute Neutrophils 12.2 H Sodium 145.1 H BUN 21 H Glucose 152 H Lactic Acid 3.7 H NT-Pro-B Natriuret Pep Urine Protein Urine Blood Urine Nitrite Ur Leukocyte Esterase 05/29/17 05/29/17 17:30 18:45 WBC RDW Seg Neutrophils % Lymphocytes % Absolute Neutrophils Sodium BUN Glucose Lactic Acid NT-Pro-B Natriuret Pep 1830 H Urine Protein 100 H Urine Blood LARGE H Urine Nitrite POSITIVE H Ur Leukocyte Esterase MODERATE H - Diagnostic Test Radiology reviewed: Image reviewed, Reports reviewed Radiology results interpreted by me: CTA A/P: NO ABDOMINAL AORTIC ANEURYSM, DISSECTION OR SIGNIFICANT STENOSIS. Marked distention of the bladder despite Anderson catheter presents, correlate for proper functioning. Similar nonspecific fat stranding in the lower pelvis, similar to the February exam. No defined fluid collection. 2 cm periumbilical hernia with small loop of bowel without evidence of focal inflammatory changes. Discharge - Discharge Clinical Impression: Acute urinary retention UTI (urinary tract infection) Qualifiers: Urinary tract infection type: site unspecified Hematuria presence: with hematuria Qualified Code(s): N39.0 - Urinary tract infection, site not specified Condition: Stable Disposition: HOME, SELF-CARE Additional Instructions: URINARY TRACT INFECTION: Your evaluation indicates that you have a urinary tract infection. This is due to germs growing in the bladder. This is a common problem. This infection usually responds quickly to antibiotics. Your antibiotic should be taken exactly as prescribed. Drink plenty of fluids -- three to four quarts a day. Occasionally, a bladder anesthetic will be prescribed to help stop the feeling of urgency until the antibiotic has a chance to clear the infection. This may cause your urine to be dark orange. Certain urine infections require a culture. If the doctor obtained a culture, the results will be back in two days. You should call to see if a change in treatment is needed. A repeat urinalysis after you finish treatment is often recommended. The physician will let you know if further testing is required. Call the doctor if you develop fever, chills, flank pain, inability to urinate, or blood in the urine. ANTIBIOTIC THERAPY: You have been given an antibiotic prescription. It's important that you take all the medication, unless instructed otherwise by your physician. Failure to complete the entire course can result in relapse of your condition. Common side effects of antibiotics include nausea, intestinal cramping, or diarrhea. Women may develop vaginal yeast infections, and babies can get yeast (thrush) in the mouth following the use of antibiotics. Contact your physician if you develop significant side effects from this medication. Allergy to this antibiotic can result in hives, wheezing, faintness, or itching. If symptoms of allergy occur, stop the medication and call the doctor. FOLLOW-UP CARE: If you have been referred to a physician for follow-up care, call the physician s office for an appointment as you were instructed or within the next two days. If you experience worsening or a significant change in your symptoms, notify the physician immediately or return to the Emergency Department at any time for re-evaluation. Prescriptions: Doxycycline Hyclate 100 mg PO BID #14 capsule Levofloxacin [Levaquin 750 mg Tablet] 750 mg PO DAILY #10 tablet Referrals: MARIO RYAN MD [Primary Care Provider] - Follow up as needed
[2017-05-29] MEDS ORDERED: MORPHINE SULFATE 10 MG/ML INJ IV ONE (17:19)
[2017-05-29 17:47] LABS: ABSOLUTE LYMPHOCYTES (AUTO) 0.8 10^3/uL (0.5-4.7); ABSOLUTE MONOCYTES (AUTO) 0.6 10^3/uL (0.1-1.4); ABSOLUTE NEUT (AUTO) 12.2 10^3/uL (1.7-8.2); BASOPHILS % (AUTO) 0.2 % (0-2); EOSINOPHILS % (AUTO) 0.1 % (0-6); HEMATOCRIT 40.5 % (37.9-51.0); HEMOGLOBIN 13.5 g/dL (13.5-17.0); LYMPHOCYTES % (AUTO) 5.7 % (13-45); MEAN CORPUSCULAR HEMOGLOBIN 30.6 pg (27.0-33.4); MEAN CORPUSCULAR HGB CONC 33.3 g/dL (32.0-36.0); MEAN CORPUSCULAR VOLUME 92 fl (80-97); MONOCYTES % (AUTO) 4.3 % (3-13); PLATELET COUNT 186 10^3/uL (150-450); RED BLOOD COUNT 4.41 10^6/uL (4.35-5.55); RED CELL DISTRIBUTION WIDTH 14.2 % (11.5-14.0); SEGMENTED NEUTROPHILS % (AUTO) 89.7 % (42-78); TOTAL CELLS COUNTED % (AUTO) 100 %; WHITE BLOOD COUNT 13.6 10^3/uL (4.0-10.5)
[2017-05-29 18:05] LABS: ALANINE AMINOTRANSFERASE 47 U/L (21-72); ALKALINE PHOSPHATASE 121 U/L (38-126); ANION GAP 19 (5-19); ASPARTATE AMINO TRANSFERASE 37 U/L (17-59); BILIRUBIN,DIRECT 0.3 mg/dL (0.0-0.4); BILIRUBIN,TOTAL 0.3 mg/dL (0.2-1.3); BLOOD UREA NITROGEN 21 mg/dL (7-20); CALCIUM 9.9 mg/dL (8.4-10.2); CARBON DIOXIDE 25 mmol/L (22-30); CHLORIDE 101 mmol/L (98-107); CREATINE KINASE 118 U/L (55-170); GLUCOSE 152 mg/dL (75-110); POTASSIUM 4.4 mmol/L (3.6-5.0); SODIUM 145.1 mmol/L (137-145); TOTAL PROTEIN 8.2 g/dL (6.3-8.2)
[2017-05-29] MEDS ORDERED: NORMAL SALINE 1000 ML 1,000 ML IV ONE (18:07)
[2017-05-29] MEDS ORDERED: CEFTRIAXONE 1 GM/D5W RTU 1 GM/50 ML RTUPB IV ONE (18:07)
[2017-05-29] MEDS ORDERED: HYDROMORPHONE HCL INJ/PF 2 MG/ML AMPULE IV ONE (18:08)
[2017-05-29] MEDS ORDERED: KETOROLAC TROMETHAMINE INJ/PF 30 MG/1 ML SDV IV ONE (18:08)
[2017-05-29] MEDS ORDERED: CEFTRIAXONE INJ 1000 MG VIAL ONE (18:12)
[2017-05-29 18:16] LABS: TROPONIN I 0.015 ng/mL
--- NOTE | 2017-05-29 18:34 | RADIOLOGY REPORT (SQ) ---
EXAM DESCRIPTION: CTA ABDOMEN/PELVIS W WO COMPLETED DATE/TIME: 05/29/2017 6:14 pm REASON FOR STUDY: unequal pulses, severe lower abd pain COMPARISON: 02/11/2017 TECHNIQUE: CT scan of the abdominal aorta extending to the iliac bifurcation performed with intraven ous contrast using helical scanning technique with dynamic intravenous contrast injection. Images rev iewed with lung, soft tissue, and bone windows. Reconstructed coronal and sagittal MPR images reviewe d. All images stored on PACS. Advanced 3D imaging as volume rendering, MIPS, SSD performed? yes All CT scanners at this facility use dose modulation, iterative reconstruction, and/or weight based d osing when appropriate to reduce radiation dose to as low as reasonably achievable (ALARA). [facility]: Dose Right [facility]: CareDose [facility]: Dose Right [facility]: Teradose 4D [facility]: [employer] CONTRAST TYPE AND DOSE: contrast/concentration: Isovue 370.00 mg/ml; Total Contrast Delivered: 75.0 ml; Total Saline Delivered: 75.0 ml RENAL FUNCTION: Not obtained due to patient condition LIMITATIONS: None. FINDINGS: POST-CONTRAST IMAGING: AORTA AND VESSELS: No aneurysm. No dissection. Renal arteries, SMA, celiac without high-grade stenosi s. LUNG BASES: No consolidation or pleural effusion. Similar interstitial changes. LIVER: Normal size. No masses or dilated ducts. SPLEEN: Normal size. No focal lesions. PANCREAS: No masses. No significant calcifications. No adjacent inflammation or peripancreatic fluid collections. Pancreatic duct not dilated. GALLBLADDER: No identified stones by CT criteria. No inflammatory changes to suggest cholecystitis. ADRENAL GLANDS: Similar nodularity in the left adrenal gland. RIGHT KIDNEY AND URETER: No mass, calculi or urinary tract obstruction. LEFT KIDNEY AND URETER: No mass, calculi or urinary tract obstruction. RETROPERITONEUM: Similar retroperitoneal adenopathy. No hemorrhage. BOWEL AND PERITONEAL CAVITY: No obstruction. Diverticulosis. APPENDIX: Normal. ABDOMINAL WALL: 2 cm periumbilical hernia with small loop of bowel without evidence of focal inflamma tory changes. BONY STRUCTURES: No acute findings. 3-D IMAGING: Confirms the above findings. OTHER: Marked distention of the bladder despite Anderson catheter presents, correlate for proper functio dvaid. Similar nonspecific fat stranding in the lower pelvis, similar to the February exam. IMPRESSION: NO ABDOMINAL AORTIC ANEURYSM, DISSECTION OR SIGNIFICANT STENOSIS. Marked distention of the bladder despite Anderson catheter presents, correlate for proper functioning. Similar nonspecific f at stranding in the lower pelvis, similar to the November exam. No defined fluid collection. . 2 cm periumbilical hernia with small loop of bowel without evidence of focal inflammatory changes. TECHNICAL DOCUMENTATION: JOB ID: [id number] Quality ID # [id number]: Final reports with documentation of one or more dose reduction techniques (e.g., Au tomated exposure control, adjustment of the mA and/or kV according to patient size, use of iterative reconstruction technique) 2010 [employer]- All Rights Reserved Reading location - IP/workstation name: [email or web address]
[2017-05-29 18:37] LABS: VENOUS BLOOD BASE EXCESS -1.6 mmol/L; VENOUS BLOOD HCO3 23.7 mmol/L (20-32); VENOUS BLOOD PCO2 42.4 mmHg (35-63); VENOUS BLOOD PH 7.37 (7.30-7.42)
[2017-05-29 19:06] LABS: APPEARANCE,URINE CLOUDY; BILIRUBIN,URINE NEGATIVE (NEGATIVE); COLOR,URINE YELLOW; GLUCOSE, URINE NEGATIVE (NEGATIVE); KETONES,URINE NEGATIVE (NEGATIVE); LEUKOCYTE ESTERASE,URINE MODERATE (NEGATIVE); NITRITE,URINE POSITIVE (NEGATIVE); PROTEIN,URINE 100 mg/dL (NEGATIVE); UROBILINOGEN,URINE NEGATIVE mg/dL (<2.0)
[2017-05-29 19:12] VITALS: BP 102/57
[2017-05-29] MEDS ORDERED: DOXYCYCLINE HYCLATE 100 MG TABLET PO ONE (19:15)
[2017-05-29] MEDS ORDERED: LEVOFLOXACIN 750 MG TABLET PO ONE (19:38)
--- NOTE | 2017-05-29 21:24 | EKG REPORT ---
SEVERITY:- ABNORMAL ECG - SINUS TACHYCARDIA MULTIFORM VENTRICULAR PREMATURE COMPLEXES NONSPECIFIC INTRAVENTRICULAR CONDUCTION DELAY INFERIOR INFARCT, AGE INDETERMINATE BORDERLINE R WAVE PROGRESSION, ANTERIOR LEADS PROBABLE POSTERIOR INFARCT : Confirmed by: Adam Gilbert MD 29-May-2017 21:23:19
== END 2017-05-29 20:52 | disposition home or self-care (01) ==
LOC: ER 16:53
DX: N39.0 Urinary tract infection, site not specified (principal); R33.9 Retention of urine, unspecified; R10.30 Lower abdominal pain, unspecified; Z87.448 Personal history of other diseases of urinary system
CPT/HCPCS: 93005; 99285; 96375; 96365; 36415; 87040; 82550; 83690; 85025; 80053; 81001; 84484; 82803; 83605; 83880; 74174; 93010; A9270 ×2; J1885; J1170; J0696; J7030

== ENCOUNTER 2017-08-30 02:13 | Inpatient (IN) | payer MEDICARE ==
[2017-08-30] MEDS ORDERED: NORMAL SALINE 1000 ML 1,000 ML IV ONE ×2 (02:36→05:01)
[2017-08-30] MEDS ORDERED: LIDOCAINE 2% URO-JET 5 ML KIT MM ONE (02:36)
[2017-08-30] MEDS ORDERED: VANCOMYCIN HCL INJ 1000 MG VIAL IV ONE (02:38)
[2017-08-30] MEDS ORDERED: PIPERACILLIN/TAZOBACTAM 3.375 GM VIAL IV ONE (02:38)
--- NOTE | 2017-08-30 02:41 | ER Document Report ---
ED GI/ - General Chief Complaint: Abdominal Pain Stated Complaint: ABDOMINAL PAIN Time Seen by Provider: 08/30/17 02:29 Notes: The patient is a 77-year-old male, past medical history chronic indwelling Pugh , ventral hernia, CHF, presents with increasing right lower quadrant abdominal pain and a productive cough. When EMS arrived, he was satting 87% on room air and he does not normally wear oxygen at home. History is difficult to obtain from the patient due to his baseline mental status, but denies diarrhea, constipation or chest pain. TRAVEL OUTSIDE OF THE [place] IN LAST 30 DAYS: No - Related Data Allergies/Adverse Reactions: No Known Allergies Allergy (Verified 08/30/17 02:57) Past Medical History - General Information source: Patient - Social History Smoking Status: Unknown if Ever Smoked Family History: Reviewed & Not Pertinent, Hypertension - Past Medical History Cardiac Medical History: Reports: Hx Atrial Fibrillation, Hx 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, Hx Heart Attack Denies: Hx DVT, Hx Pulmonary Embolism Pulmonary Medical History: Reports: Hx COPD Denies: Hx Tuberculosis Neurological Medical History: Reports: Hx Seizures - Last episode April 2016 Renal/ Medical History: Denies: Hx Peritoneal Dialysis GI Medical History: Reports: Hx Hiatal Hernia. Denies: Hx Cirrhosis, Hx Gastroesophageal Reflux Disease, Hx Hepatitis Musculoskeltal Medical History: Denies Hx Arthritis Psychiatric Medical History: Denies: Hx Bipolar Disorder, Hx Dementia, Hx Depression Infectious Medical History: Denies: Hx Hepatitis Past Surgical History: Reports: Hx Abdominal Surgery - perforated hernia, Hx Cardiac Surgery - STENT, Hx Coronary Stent - Immunizations Hx Diphtheria, Pertussis, Tetanus Vaccination: Yes Hx Pneumococcal Vaccination: 01/02/11 Review of Systems - Review of Systems Notes: REVIEW OF SYSTEMS: CONSTITUTIONAL: -fevers, -chills EENT: -eye pain, -difficulty swallowing, -nasal congestion CARDIOVASCULAR: -chest pain, -syncope. RESPIRATORY: +productive cough, -SOB GASTROINTESTINAL: +RLQ abdominal pain, -nausea, -vomiting, -diarrhea MUSCULOSKELETAL: -back pain, -neck pain SKIN: -rash or skin lesions. HEMATOLOGIC: -easy bruising or bleeding. LYMPHATIC: -swollen, enlarged glands. NEUROLOGICAL: -altered mental status or loss of consciousness, -headache, - neurologic symptoms PSYCHIATRIC: -anxiety, -depression. ALL OTHER SYSTEMS REVIEWED AND NEGATIVE. Physical Exam - Vital signs Vitals: Resp Pulse Ox 37 H 92 08/30/17 02:26 08/30/17 02:26 - Notes Notes: PHYSICAL EXAMINATION: GENERAL: Chronically ill-appearing. Acute distress. HEAD: Atraumatic, normocephalic. EYES: Pupils equal round and reactive to light, extraocular movements intact, sclera anicteric, conjunctiva are normal. ENT: nares patent, oropharynx clear without exudates. Moist mucous membranes. NECK: Normal range of motion, supple without lymphadenopathy LUNGS: Tachypnea, diffuse rhonchi HEART: Regular rhythm, tachycardia ABDOMEN: Soft, mild RLQ tenderness, reducible ventral hernia, normoactive bowel sounds. No guarding, no rebound. No masses appreciated. EXTREMITIES: Normal range of motion, no pitting or edema. No cyanosis. NEUROLOGICAL: Moves all 4 extremities, answers questions slowly. AAOx3. PSYCH: Normal mood, normal affect. SKIN: Warm, Dry, normal turgor, no rashes or lesions noted. Course - Re-evaluation Re-evalutation: Patient with tachycardia, tachypnea and a leukocytosis. His urinalysis after his Pugh was replaced showed evidence of a urinary tract infection. Looking through old culture results, broad-spectrum antibiotics were started using vancomycin and Zosyn. He does have diffuse rhonchi, but no evidence of pneumonia on chest x-ray. His CAT scan did show early evidence of diverticulitis and Zosyn will cover this. He creatinine is elevated, but he did have ~500 mL return when the pugh was replaced. His ОЛЕГ may be from a combination of acute urinary retention from a clogged Pugh and sepsis. Patient 's MAPs have remained above 65. Spoke to family members at bedside, who are his medical decision makers, and they agree that patient is DNR and DNI. Pt confirms this. At this time, they are unsure if patient would want a central venous catheter if he needs it. 08/30/17 05:[address] Barnes and he has accepted the patient. Family and patient would like to hold off on central line at this time. His MAP is remaining in the 70s. - Vital Signs Vital signs: Temp Pulse Resp BP Pulse Ox 17 91/62 L 96 08/30/17 05:09 08/30/17 05:09 08/30/17 05:09 - Laboratory Result Diagrams: 08/30/17 02:30 08/30/17 02:30 Laboratory results interpreted by me: 08/30/17 08/30/17 08/30/17 02:30 02:30 02:30 WBC 18.9 H Seg Neuts % (Manual) 80 H Band Neutrophils % 11 H Lymphocytes % (Manual) 7 L Monocytes % (Manual) 2 L Abs Neuts (Manual) 17.2 H Sodium 147.5 H BUN 53 H Creatinine 2.53 H Est GFR ( Amer) 30 L Est GFR (Non-Af Amer) 25 L Glucose 158 H POC Glucose Lactic Acid 2.9 H Urine Protein Urine Blood Ur Leukocyte Esterase 08/30/17 08/30/17 02:50 03:32 WBC Seg Neuts % (Manual) Band Neutrophils % Lymphocytes % (Manual) Monocytes % (Manual) Abs Neuts (Manual) Sodium BUN Creatinine Est GFR ( Amer) Est GFR (Non-Af Amer) Glucose POC Glucose 141 H Lactic Acid Urine Protein >=500 H Urine Blood MODERATE H Ur Leukocyte Esterase LARGE H - Diagnostic Test Radiology reviewed: Image reviewed, Reports reviewed Radiology results interpreted by me: CT A/P: 1. Possible early acute diverticulitis of the proximal sigmoid colon. No paracolic abscess formation. 2. 3.3 cm infrarenal abdominal aortic aneurysm. Continued follow-up in 3 years recommended. 3. Moderate bilateral hydronephrosis without obstructing calculus identified. 4. Large amount stool in the rectum. This could be seen with fecal impaction. 5. Cardiomegaly with coronary artery atherosclerosis. Critical Care Note - Critical Care Note Total time excluding time spent on procedures (mins): 35 Discharge - Discharge Clinical Impression: Sepsis due to urinary tract infection, Do not resuscitate, Chronic combined systolic and diastolic CHF (congestive heart failure), Diverticulitis, ОЛЕГ ( acute kidney injury) UTI (urinary tract infection) Qualifiers: Urinary tract infection type: site unspecified Hematuria presence: with hematuria Qualified Code(s): N39.0 - Urinary tract infection, site not specified Dementia Qualifiers: Dementia type: unspecified type Dementia behavioral disturbance: without behavioral disturbance Qualified Code(s): F03.90 - Unspecified dementia without behavioral disturbance Condition: Serious Disposition: ADMITTED INPATIENT Admitting Provider: Hospitalist - [facility] Admitted: [facility] Referrals: MARIO RYAN MD [Primary Care Provider] - Follow up as needed
[2017-08-30 03:04] LABS: INTERNATIONAL RATION (INR) 1.09; PROTHROMBIN TIME 14.7 SEC (11.4-15.4)
[2017-08-30 03:06] LABS: HEMATOCRIT 41.3 % (37.9-51.0); HEMOGLOBIN 14.2 g/dL (13.5-17.0); MEAN CORPUSCULAR HEMOGLOBIN 31.5 pg (27.0-33.4); MEAN CORPUSCULAR HGB CONC 34.4 g/dL (32.0-36.0); MEAN CORPUSCULAR VOLUME 92 fl (80-97); PLATELET COUNT 223 10^3/uL (150-450); RED BLOOD COUNT 4.51 10^6/uL (4.35-5.55); RED CELL DISTRIBUTION WIDTH 13.5 % (11.5-14.0); WHITE BLOOD COUNT 18.9 10^3/uL (4.0-10.5)
[2017-08-30 03:12] LABS: APPEARANCE,URINE TURBID; BILIRUBIN,URINE NEGATIVE (NEGATIVE); COLOR,URINE AMBER; GLUCOSE, URINE NEGATIVE (NEGATIVE); KETONES,URINE NEGATIVE (NEGATIVE); LEUKOCYTE ESTERASE,URINE LARGE (NEGATIVE); NITRITE,URINE NEGATIVE (NEGATIVE); PROTEIN,URINE >=500 mg/dL (NEGATIVE); URINE SPECIFIC GRAVITY 1.014; UROBILINOGEN,URINE NEGATIVE mg/dL (<2.0)
[2017-08-30 03:19] LABS: ALANINE AMINOTRANSFERASE 31 U/L (21-72); ALBUMIN 4.3 g/dL (3.5-5.0); ALKALINE PHOSPHATASE 101 U/L (38-126); ASPARTATE AMINO TRANSFERASE 26 U/L (17-59); BILIRUBIN,DIRECT 0.4 mg/dL (0.0-0.4); BILIRUBIN,TOTAL 0.4 mg/dL (0.2-1.3); BLOOD UREA NITROGEN 53 mg/dL (7-20); CALCIUM 9.9 mg/dL (8.4-10.2); GLUCOSE 158 mg/dL (75-110); TOTAL PROTEIN 7.5 g/dL (6.3-8.2)
[2017-08-30 03:25] LABS: ABSOLUTE LYMPHOCYTES# (MANUAL) 1.3 10^3/uL (0.5-4.7); ABSOLUTE MONOCYTES # (MANUAL) 0.4 10^3/uL (0.1-1.4); ABSOLUTE NEUTROPHILS# (MANUAL) 17.2 10^3/uL (1.7-8.2); BASOPHILS % (MANUAL) 0 % (0-2); EOSINOPHILS % (MANUAL) 0 % (0-6); LYMPHOCYTES % (MANUAL) 7 % (13-45); MONOCYTES % (MANUAL) 2 % (3-13); SEGMENTED NEUTROPHILS % (MAN) 80 % (42-78); TOTAL CELLS COUNTED 100
[2017-08-30 03:26] LABS: RBC MORPHOLOGY COMMENT NORMO-CYTIC/CHROMIC; TOXIC GRANULATION 1+; TOXIC VACUOLATION PRESENT
[2017-08-30 03:26] LABS: VENOUS BLOOD BASE EXCESS -1.6 mmol/L; VENOUS BLOOD HCO3 23.4 mmol/L (20-32); VENOUS BLOOD PCO2 40.5 mmHg (35-63); VENOUS BLOOD PH 7.38 (7.30-7.42)
[2017-08-30 03:27] LABS: PLATELET COMMENT ADEQUATE
[2017-08-30 03:28] LABS: BAND NEUTROPHILS % (MANUAL) 11 % (3-5)
[2017-08-30 03:51] LABS: ANION GAP 18 (5-19); CARBON DIOXIDE 23 mmol/L (22-30); CHLORIDE 107 mmol/L (98-107); POTASSIUM 4.6 mmol/L (3.6-5.0); SODIUM 147.5 mmol/L (137-145)
--- NOTE | 2017-08-30 03:59 | RADIOLOGY REPORT (SQ) ---
EXAM DESCRIPTION: Single view of the chest CLINICAL HISTORY: cough, septic COMPARISON: None. FINDINGS: Single frontal view of the chest. Atherosclerotic calcification of the aortic arch. Cardiomegaly. Leads overlie the chest. No consolidation, pneumothorax, or pleural effusion. No displaced rib fractures identified. Upper abdominal soft tissues are unremarkable. IMPRESSION: 1. No acute pulmonary process identified. Cardiomegaly.
--- NOTE | 2017-08-30 04:50 | RADIOLOGY REPORT (SQ) ---
EXAM DESCRIPTION: CT ABDOMEN AND PELVIS WITHOUT CONTRAST CLINICAL HISTORY: RLQ tenderness, ОЛЕГ, septic COMPARISON: 05/29/2017 TECHNIQUE: CT of the abdomen and pelvis without IV contrast. Evaluation of the solid organs and vasculature is suboptimal due to lack of IV contrast. DLP: 1413.08 mGy-cm FINDINGS: Lung Bases: Bibasilar opacities may be related to dependent atelectasis. Coronary artery atherosclerosis. Cardiomegaly. Bones: Minimal degenerative change of the spine. Abdomen: Liver: The liver has normal size and density. Gallbladder: No calcified gallstones. Spleen, Pancreas, and Adrenal Glands: The spleen, pancreas, and adrenal glands are unremarkable. Kidneys: Mild bilateral hydronephrosis without obstructing calculus identified. No exophytic renal masses identified. Vasculature: Aortoiliac atherosclerosis. IVC is unremarkable. 3.3 cm infrarenal abdominal aortic aneurysm. Stomach: Small hiatal hernia. Other: No free intraperitoneal air. Small amount of free fluid. Small fat-containing ventral hernia. Pelvis: Bladder: Anderson catheter in the urinary bladder. Bowel: Scattered diverticula throughout the colon. Mild inflammatory change adjacent to the proximal sigmoid colon. Large amount of stool in the rectum. Appendix: Normal appendix. Pelvis: Prostate is not enlarged. IMPRESSION: 1. Possible early acute diverticulitis of the proximal sigmoid colon. No paracolic abscess formation. 2. 3.3 cm infrarenal abdominal aortic aneurysm. Continued follow-up in 3 years recommended. 3. Moderate bilateral hydronephrosis without obstructing calculus identified. 4. Large amount stool in the rectum. This could be seen with fecal impaction. 5. Cardiomegaly with coronary artery atherosclerosis. This exam was performed according to our departmental dose-optimization program, which includes automated exposure control, adjustment of the mA and/or kV according to patient size and/or use of iterative reconstruction technique.
--- NOTE | 2017-08-30 05:59 | PDOC H&P ---
History of Present Illness Admission Date/PCP: 08/30/17 05:28 MARIO RYAN MD Patient complains of: Abdominal pain History of Present Illness: JESENIA LÓPEZ is a 77 year old male with history of dementia, congestive heart failure, A. fib, COPD, chronic kidney disease, anemia of chronic disease, profound debility, presents with 48 hours of abdominal pain and oliguria. In the emergency room he is found to have hypotension, a distended abdomen and a empty indwelling Anderson. CT reveals fecal impaction, sigmoid diverticulitis and moderate bilateral hydronephrosis. Patient is a poor historian unable to provide meaningful history. He started on empiric antibiotics, Andersno catheter is flushed resulting in 500 mL of bloody urine and sediment. He is referred to the hospitalist for admission. Family verifies CODE STATUS as DNR to ER physician declining triple-lumen catheter placement. 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, Myocardial Infarction Denies: DVT, Pulmonary Embolism Pulmonary Medical History: Reports: Chronic Obstructive Pulmonary Disease (COPD) Denies: Tuberculosis Neurological Medical History: Reports: Seizures - Last episode April 2016 GI Medical History: Reports: Diverticulitis, Hiatal Hernia Denies: Cirrhosis, Gastroesophageal Reflux Disease, Hepatitis Musculoskeltal Medical History: Denies: Arthritis Psychiatric Medical History: Denies: Bipolar Disorder, Dementia, Depression Past Surgical History Past Surgical History: Reports: Coronary Stent Social History Information Source: [facility] Records Lives with: Spouse/Significant other Smoking Status: Unknown if Ever Smoked Frequency of Alcohol Use: None Hx Recreational Drug Use: No Drugs: None Hx Prescription Drug Abuse: No - Advance Directive Resuscitation Status: Do Not Resuscitate Family History Family History: Hypertension Parental Family History Reviewed: Yes Children Family History Reviewed: Yes Sibling(s) Family History Reviewed.: Yes Medication/Allergy Home Medications: Albuterol Sulfate [Ventolin HFA MDI 18 GM] 2 puff PO Q4H PRN 02/12/17 Aspirin [Aspirin 325 mg Tablet] 325 mg PO DAILY 02/12/17 Atorvastatin Calcium [Lipitor 40 mg Tablet] 40 mg PO QHS 02/12/17 Docusate Sodium [Colace 100 mg Capsule] 100 mg PO BID 02/12/17 Ferrous Sulfate [Feosol 325 mg Tablet] 325 mg PO BID 02/12/17 Finasteride [Proscar 5 mg Tablet] 5 mg PO DAILY 02/12/17 Fluticasone Propionate [Flonase Nasal [place] 50 Mcg/[place] 16 gm] 1 spray NASL DAILY 02/12/17 Furosemide [Lasix 20 mg Tablet] 20 mg PO DAILY 02/12/17 Phenobarbital [Phenobarbital 64.8 mg Tablet] 64.8 mg PO Q12 02/12/17 Quetiapine Fumarate [Seroquel 25 mg Tablet] 25 mg PO Q8 02/12/17 Sennosides/Docusate Sodium [Senna Laxative Tablet] 2 tab PO DAILY 02/12/17 Tamsulosin HCl [Flomax 0.4 mg Cap.sr] 0.4 mg PO DAILY 02/12/17 Umeclidinium Brm/Vilanterol Tr [Anoro Ellipta 62.5-25 Mcg INH] 1 puff IH DAILY 02/12/17 Cefuroxime Axetil [Ceftin 500 mg Tablet] 500 mg PO Q12 tablet 02/16/17 Metoprolol Succinate [Toprol Xl 25 mg Tab.sr] 12.5 mg PO Q12 tab.sr.24h Nitrofurantoin Macrocrystal [Macrodantin] 100 mg PO BID #20 capsule 03/17/17 Doxycycline Hyclate 100 mg PO BID #14 capsule 05/29/17 Levofloxacin [Levaquin 750 mg Tablet] 750 mg PO DAILY #10 tablet 05/29/17 Allergies/Adverse Reactions: No Known Allergies Allergy (Verified 08/30/17 02:57) Review of Systems ROS unobtainable: Due to mental status Physical Exam Vital Signs: Temp Pulse Resp BP Pulse Ox 17 91/62 L 96 08/30/17 05:09 08/30/17 05:09 08/30/17 05:09 Intake & Output 08/28/17 08/29/17 08/30/17 11:59 11:59 11:59 Output Total 100 Balance -100 General appearance: PRESENT: cooperative, disheveled, hard of hearing, severe distress, other - Dementia with limited verbal responses Head exam: PRESENT: atraumatic, normocephalic Eye exam: PRESENT: conjunctiva pink, EOMI, PERRLA. ABSENT: scleral icterus Ear exam: PRESENT: normal external ear exam Mouth exam: PRESENT: dry mucosa, neck supple. ABSENT: moist Neck exam: ABSENT: carotid bruit, JVD, lymphadenopathy, thyromegaly Respiratory exam: PRESENT: accessory muscle use, clear to auscultation maykel, crackles, prolonged expiratory phas, tachypnea. ABSENT: rales, rhonchi, wheezes Cardiovascular exam: PRESENT: irregular rhythm. ABSENT: diastolic murmur, rubs , systolic murmur Pulses: PRESENT: normal dorsalis pedis pul Vascular exam: PRESENT: normal capillary refill GI/Abdominal exam: PRESENT: diminished bowel sounds, firm, hypoactive bowel sounds, soft, tenderness Rectal exam: PRESENT: deferred Extremities exam: PRESENT: full ROM. ABSENT: calf tenderness, clubbing, pedal edema Neurological exam: PRESENT: alert, awake, oriented to person, CN II-XII grossly intact. ABSENT: motor sensory deficit Psychiatric exam: PRESENT: flat affect, normal mood. ABSENT: homicidal ideation , suicidal ideation Skin exam: PRESENT: dry, intact, warm. ABSENT: cyanosis, rash Results Impressions: Chest X-Ray 08/30/17 02:37 IMPRESSION: 1. No acute pulmonary process identified. Cardiomegaly. Abdomen/Pelvis CT 08/30/17 04:07 IMPRESSION: 1. Possible early acute diverticulitis of the proximal sigmoid colon. No paracolic abscess formation. 2. 3.3 cm infrarenal abdominal aortic aneurysm. Continued follow-up in 3 years recommended. 3. Moderate bilateral hydronephrosis without obstructing calculus identified. 4. Large amount stool in the rectum. This could be seen with fecal impaction. 5. Cardiomegaly with coronary artery atherosclerosis. This exam was performed according to our departmental dose-optimization program, which includes automated exposure control, adjustment of the mA and/or kV according to patient size and/or use of iterative reconstruction technique. Assessment & Plan - Diagnosis (1) Acute kidney injury Is this a current diagnosis for this admission?: Yes Plan: Complicated by multisystem organ failure. Trial IV fluid challenge, limit and avoid nephrotoxic meds and doses, correction of sepsis, follow-up chemistry (2) Chronic combined systolic and diastolic CHF (congestive heart failure) Is this a current diagnosis for this admission?: Yes Plan: Complicated by sepsis, suboptimal IV access. Correction of underlying sepsis. Avoid tachycardia, IV fluid as tolerated (3) Diverticulitis Is this a current diagnosis for this admission?: Yes Plan: Flagyl and levofloxacin, enema (4) Sepsis due to urinary tract infection Is this a current diagnosis for this admission?: Yes Plan: Empiric antibiotic, IV fluid challenge, follow-up blood and urine culture (5) Do not resuscitate Is this a current diagnosis for this admission?: Yes Plan: Supportive care, conservative management (6) Fecal impaction Is this a current diagnosis for this admission?: Yes Plan: Lactulose enema. - Time Time Spent: 50 to 70 Minutes - Inpatient Certification Medical Necessity: Need Close Monitoring Due to Risk of Patient Decompensation
[2017-08-30] MEDS ORDERED: HEPARIN SOD (PORCINE) 5,000 UNIT/ML 1 ML SYRINGE SUBCUT SCH (06:00)
[2017-08-30] MEDS ORDERED: NORMAL SALINE 1000 ML 1,000 ML IV PRN (06:00)
[2017-08-30] MEDS ORDERED: MAGNESIUM HYDROXIDE SUSP 30 ML UDCUP PO PRN (06:00)
[2017-08-30] MEDS ORDERED: ONDANSETRON HCL INJ/PF 4 MG/2 ML SDV IV PRN (06:00)
[2017-08-30] MEDS ORDERED: METRONIDAZOLE 500 MG TABLET PO SCH (06:00)
[2017-08-30] MEDS ORDERED: ACETAMINOPHEN 325 MG TABLET PO PRN (06:00)
[2017-08-30] MEDS ORDERED: VANCOMYCIN HCL 0 MG in DEXTROSE 5%-WATER 250 ML IV NR (06:00)
[2017-08-30] MEDS: IPRATROPIUM/ALBUTEROL 0.5-2.5 MG/3 ML AMPUL NEB SCH ×3 (07:41→23:39)
--- NOTE | 2017-08-30 08:20 | PDOC PROGRESS REPORT ---
Subjective Progress Note for:: 08/30/17 Subjective:: Patient is a 77-year-old with a known history of chronic diastolic and systolic CHF, chronic atrial fibrillation, ambulatory dysfunction Patient is wheelchair-bound living in assisted living, who was brought to the ED with abdominal pain and sepsis Patient was diagnosed of acute diverticulitis, acute renal failure and sepsis Patient is currently treated with ceftriaxone and vancomycin. This morning patient is awake; he looks quite ill; is complaining of abdominal pain He appears in no respiratory distress Reason For Visit: SEPSIS UTI,DIVERTICULITIS FECAL IMPATION Physical Exam Vital Signs: Temp Pulse Resp BP Pulse Ox 24 H 118/72 94 08/30/17 07:37 08/30/17 07:37 08/30/17 07:37 Intake & Output 08/29/17 08/30/17 08/31/17 00:59 00:59 00:59 Output Total 450 Balance -450 Is an obese male acute and chronically ill in no respiratory distress Pupils are PERRLA extraocular motor intact Neck is supple no nodes no bruits Heart regular rhythm no murmur no gallop Lungs wheezes bilaterally Decreased breath sounds Rales both bases The abdomen is very distended There is a ventral hernia that is difficult to reduce and extremely tender on palpation Extremities there is no peripheral edema Pulses are 2+ bilaterally Neuro exam patient is moving all 4 extremities; somewhat obtunded; no lateralized deficit skin no rashes Results Laboratory Results: 08/30/17 06:52 Lactic Acid 1.4 08/30/17 08/30/17 08/30/17 02:30 02:30 02:30 WBC 18.9 H Hgb 14.2 Hct 41.3 Plt Count 223 Sodium 147.5 H Potassium 4.6 Chloride 107 BUN 53 H Creatinine 2.53 H POC Glucose Lactic Acid 2.9 H Urine Protein Urine Blood Ur Leukocyte Esterase Urine WBC (Auto) Urine RBC (Auto) Urine Bacteria (Auto) 08/30/17 08/30/17 02:50 03:32 WBC Hgb Hct Plt Count Sodium Potassium Chloride BUN Creatinine POC Glucose 141 H Lactic Acid Urine Protein >=500 H Urine Blood MODERATE H Ur Leukocyte Esterase LARGE H Urine WBC (Auto) >182 Urine RBC (Auto) >182 Urine Bacteria (Auto) 2+ Impressions: Chest X-Ray 08/30/17 02:37 IMPRESSION: 1. No acute pulmonary process identified. Cardiomegaly. Abdomen/Pelvis CT 08/30/17 04:07 IMPRESSION: 1. Possible early acute diverticulitis of the proximal sigmoid colon. No paracolic abscess formation. 2. 3.3 cm infrarenal abdominal aortic aneurysm. Continued follow-up in 3 years recommended. 3. Moderate bilateral hydronephrosis without obstructing calculus identified. 4. Large amount stool in the rectum. This could be seen with fecal impaction. 5. Cardiomegaly with coronary artery atherosclerosis. This exam was performed according to our departmental dose-optimization program, which includes automated exposure control, adjustment of the mA and/or kV according to patient size and/or use of iterative reconstruction technique. Assessment & Plan - Diagnosis (1) Sepsis Qualifiers: Sepsis type: sepsis due to unspecified organism Qualified Code(s): A41.9 - Sepsis, unspecified organism Is this a current diagnosis for this admission?: Yes Plan: Sepsis secondary to UTI and acute diverticulitis Prior UTI grew Enterobacter sensitive to imipenem We will change antibiotic management to imipenem and Flagyl Patient is hemodynamically stable and does not need pressors at this time We will continue IV hydration Follow-up BMP later this afternoon (2) Acute diverticulitis Is this a current diagnosis for this admission?: Yes Plan: Treat with imipenem and Flagyl (3) UTI (urinary tract infection) Is this a current diagnosis for this admission?: Yes Plan: See above (4) History of atrial fibrillation Is this a current diagnosis for this admission?: Yes Plan: Patient is currently in sinus tachycardia with a few VPCs Continue cardiac monitoring (5) Acute kidney injury Is this a current diagnosis for this admission?: Yes Plan: Creatinine is 2.5 Continue to hydrate Acute renal failure likely was secondary to urinary retention Noted the CAT scan shows bilateral hydronephrosis We will order ultrasound of the kidneys in 48-72 hours to evaluate hydronephrosis (6) Chronic combined systolic and diastolic CHF (congestive heart failure) Is this a current diagnosis for this admission?: Yes Plan: Last echocardiogram performed in 2017 showed an EF of 40% and grade 2/4 diastolic dysfunction Continue to hydrate Chest x-ray does not show any signs of fluid overload (7) Dementia Qualifiers: Dementia type: unspecified type Dementia behavioral disturbance: without behavioral disturbance Qualified Code(s): F03.90 - Unspecified dementia without behavioral disturbance Is this a current diagnosis for this admission?: Yes (8) Ambulatory dysfunction Is this a current diagnosis for this admission?: Yes Plan: According to daughter patient is wheelchair-bound living in assisted living PT evaluation to be ordered when patient's clinical status permits (9) COPD (chronic obstructive pulmonary disease) Qualifiers: COPD type: unspecified COPD Qualified Code(s): J44.9 - Chronic obstructive pulmonary disease, unspecified Is this a current diagnosis for this admission?: Yes Plan: Wheezes bilaterally We will order duo nebs (10) Fecal impaction Is this a current diagnosis for this admission?: Yes Plan: Dulcolax suppository and Fleet enema as needed (11) DNR (do not resuscitate) Is this a current diagnosis for this admission?: Yes - Time Time Spent with patient: Spoke with daughter about IV access She will agree to central line if needed Time Spent with patient: 35 or more minutes - Inpatient Certification Based on my medical assessment, after consideration of the patient's comorbidities, presenting symptoms, or acuity I expect that the services needed warrant INPATIENT care.: Yes I certify that my determination is in accordance with my understanding of Medicare's requirements for reasonable and necessary INPATIENT services [42 CFR 412.3e].: Yes Medical Necessity: Need For IV Fluids, Need For Continuous Telemetry Monitoring , Need for IV Antibiotics
[2017-08-30] MEDS ORDERED: BISACODYL 10 MG SUPP.RECT PR ONE (08:45)
--- NOTE | 2017-08-30 09:05 | EKG REPORT ---
SEVERITY:- ABNORMAL ECG - SINUS TACHYCARDIA VENTRICULAR PREMATURE COMPLEX PROBABLE INFERIOR INFARCT, AGE INDETERMINATE LATERAL LEADS ARE ALSO INVOLVED : Confirmed by: Sherrie Nunn 30-Aug-2017 09:03:42
[2017-08-30] MEDS: ASPIRIN 325 MG TABLET PO SCH (09:56)
[2017-08-30] MEDS: PHENOBARBITAL 64.8 MG TABLET PO SCH ×2 (09:57→22:22)
[2017-08-30] MEDS: METOPROLOL SUCCINATE 25 MG TAB.SR.24H PO SCH ×2 (09:57→22:22)
[2017-08-30] MEDS: DOCUSATE SODIUM 100 MG CAPSULE PO SCH ×2 (09:58→17:43)
[2017-08-30] MEDS: FINASTERIDE 5 MG TABLET PO SCH (09:58)
[2017-08-30] MEDS ORDERED: CEFTRIAXONE 1 GM/D5W RTU 1 GM/50 ML RTUPB IV SCH (10:00)
[2017-08-30] MEDS ORDERED: DEXTROSE 10%-WATER 1,000 ML with SODIUM CHLORIDE 77 MEQ IV PRN ×4 (10:36→12:22)
[2017-08-30] MEDS ORDERED: METRONIDAZOLE 500 MG/NS RTU 100 ML IV ONE (10:45)
[2017-08-30] MEDS ORDERED: IMIPENEM/CILASTATIN SODIUM 250 MG in NORMAL SALINE 100 ML IV ONE (13:00)
[2017-08-30] MEDS ORDERED: FUROSEMIDE INJ/PF 40 MG/4 ML SDV IV ONE (13:00)
--- NOTE | 2017-08-30 13:01 | RADIOLOGY REPORT (SQ) ---
EXAM DESCRIPTION: CHEST SINGLE VIEW COMPLETED DATE/TIME: 08/30/2017 12:44 pm REASON FOR STUDY: SOB COMPARISON: 08/30/2017. EXAM PARAMETERS: NUMBER OF VIEWS: One view. TECHNIQUE: Single frontal radiographic view of the chest acquired. RADIATION DOSE: NA LIMITATIONS: None. FINDINGS: LUNGS AND PLEURA: No opacities, masses or pneumothorax. No pleural effusion. MEDIASTINUM AND HILAR STRUCTURES: No masses. Contour normal. HEART AND VASCULAR STRUCTURES: Heart normal in size. Normal vasculature. BONES: No acute findings. HARDWARE: None in the chest. OTHER: No other significant finding. IMPRESSION: NO ACUTE RADIOGRAPHIC FINDING IN THE CHEST. TECHNICAL DOCUMENTATION: JOB ID: [id number] [employer]- All Rights Reserved Reading location - IP/workstation name: [email or web address]
[2017-08-30 13:57] LABS: PATH REVIEW PATHOLOGIST REVIEWED
[2017-08-30 14:08] LABS: ANION GAP 12 (5-19); BLOOD UREA NITROGEN 47 mg/dL (7-20); CALCIUM 8.7 mg/dL (8.4-10.2); CARBON DIOXIDE 20 mmol/L (22-30); CHLORIDE 114 mmol/L (98-107); GLUCOSE 112 mg/dL (75-110); POTASSIUM 4.1 mmol/L (3.6-5.0); SODIUM 145.7 mmol/L (137-145)
[2017-08-30] MEDS: METRONIDAZOLE 500 MG/NS RTU 100 ML IV SCH ×2 (14:38→22:23)
[2017-08-30] MEDS: IMIPENEM/CILASTATIN SODIUM 250 MG in NORMAL SALINE 100 ML IV SCH ×2 (17:44→23:24)
[2017-08-31] MEDS: METRONIDAZOLE 500 MG/NS RTU 100 ML IV SCH ×4 (03:48→21:15)
[2017-08-31] MEDS: IMIPENEM/CILASTATIN SODIUM 250 MG in NORMAL SALINE 100 ML IV SCH (05:22)
[2017-08-31 05:29] LABS: ABSOLUTE LYMPHOCYTES (AUTO) 0.9 10^3/uL (0.5-4.7); ABSOLUTE NEUT (AUTO) 10.2 10^3/uL (1.7-8.2); BASOPHILS % (AUTO) 0.2 % (0-2); EOSINOPHILS % (AUTO) 0.4 % (0-6); LYMPHOCYTES % (AUTO) 7.5 % (13-45); MEAN CORPUSCULAR HEMOGLOBIN 31.6 pg (27.0-33.4); MEAN CORPUSCULAR HGB CONC 34.4 g/dL (32.0-36.0); MEAN CORPUSCULAR VOLUME 92 fl (80-97); MONOCYTES % (AUTO) 8.1 % (3-13); PLATELET COUNT 150 10^3/uL (150-450); RED BLOOD COUNT 3.27 10^6/uL (4.35-5.55); RED CELL DISTRIBUTION WIDTH 13.8 % (11.5-14.0); SEGMENTED NEUTROPHILS % (AUTO) 83.8 % (42-78); TOTAL CELLS COUNTED % (AUTO) 100 %; WHITE BLOOD COUNT 12.2 10^3/uL (4.0-10.5)
[2017-08-31 05:32] LABS: HEMOGLOBIN 10.3 g/dL (13.5-17.0)
[2017-08-31 05:45] LABS: ANION GAP 12 (5-19); BLOOD UREA NITROGEN 42 mg/dL (7-20); CALCIUM 8.5 mg/dL (8.4-10.2); CARBON DIOXIDE 23 mmol/L (22-30); CHLORIDE 110 mmol/L (98-107); GLUCOSE 105 mg/dL (75-110); POTASSIUM 3.7 mmol/L (3.6-5.0); SODIUM 144.7 mmol/L (137-145)
[2017-08-31] MEDS: IPRATROPIUM/ALBUTEROL 0.5-2.5 MG/3 ML AMPUL NEB SCH ×3 (08:27→23:55)
[2017-08-31] MEDS: METOPROLOL SUCCINATE 25 MG TAB.SR.24H PO SCH ×2 (10:09→21:12)
[2017-08-31] MEDS: DOCUSATE SODIUM 100 MG CAPSULE PO SCH ×2 (10:09→17:49)
[2017-08-31] MEDS: PHENOBARBITAL 64.8 MG TABLET PO SCH ×2 (10:10→21:12)
[2017-08-31] MEDS: ASPIRIN 325 MG TABLET PO SCH (10:10)
[2017-08-31] MEDS: FINASTERIDE 5 MG TABLET PO SCH (10:11)
--- NOTE | 2017-08-31 12:00 | PDOC PROGRESS REPORT ---
Subjective Progress Note for:: 08/31/17 Subjective:: Patient feels a lot better today The abdominal pain has resolved Patient is eating regular diet with good appetite urine and blood culture grew gram-negative rods Reason For Visit: SEPSIS UTI,DIVERTICULITIS FECAL IMPATION Physical Exam Vital Signs: Temp Pulse Resp BP Pulse Ox 100.1 F 100 16 112/48 L 94 08/31/17 03:39 08/31/17 08:27 08/31/17 08:27 08/31/17 03:39 08/31/17 08:27 Intake & Output 08/30/17 08/31/17 09/01/17 00:59 00:59 00:59 Intake Total 1541 868 Output Total 3525 400 Balance -1983 468 Weight 91 kg 87.3 kg Is an obese male chronically ill in no acute distress Pupils are PERRLA extraocular motor intact Neck is supple no nodes no bruits Heart regular rhythm no murmur no gallop Lungs wheezes bilaterally Decreased breath sounds Rales both bases The abdomen is slightly distended There is a ventral hernia that is difficult to reduce and tender on palpation Extremities there is no peripheral edema Pulses are 2+ bilaterally Neuro exam patient is moving all 4 extremities; somewhat obtunded; no lateralized deficit skin no rashes Results Laboratory Results: 08/31/17 05:12 08/31/17 05:12 08/30/17 08/31/17 08/31/17 13:39 05:12 05:12 WBC 12.2 H RBC 3.27 L Hgb 10.3 L D Hct 30.0 L MCV 92 MCH 31.6 MCHC 34.4 RDW 13.8 Plt Count 150 Seg Neutrophils % 83.8 H Lymphocytes % 7.5 L Monocytes % 8.1 Eosinophils % 0.4 Basophils % 0.2 Absolute Neutrophils 10.2 H Absolute Lymphocytes 0.9 Absolute Monocytes 1.0 Absolute Eosinophils 0.0 Absolute Basophils 0.0 Sodium 145.7 H 144.7 Potassium 4.1 3.7 Chloride 114 H 110 H Carbon Dioxide 20 L 23 Anion Gap 12 12 BUN 47 H 42 H Creatinine 1.42 H 1.10 Est GFR ( Amer) 58 L > 60 Est GFR (Non-Af Amer) 48 L > 60 Glucose 112 H 105 Calcium 8.7 8.5 08/30/17 13:39 NT-Pro-B Natriuret Pep 4900 H Impressions: Abdomen/Pelvis CT 08/30/17 04:07 IMPRESSION: 1. Possible early acute diverticulitis of the proximal sigmoid colon. No paracolic abscess formation. 2. 3.3 cm infrarenal abdominal aortic aneurysm. Continued follow-up in 3 years recommended. 3. Moderate bilateral hydronephrosis without obstructing calculus identified. 4. Large amount stool in the rectum. This could be seen with fecal impaction. 5. Cardiomegaly with coronary artery atherosclerosis. This exam was performed according to our departmental dose-optimization program, which includes automated exposure control, adjustment of the mA and/or kV according to patient size and/or use of iterative reconstruction technique. Chest X-Ray 08/30/17 12:21 IMPRESSION: NO ACUTE RADIOGRAPHIC FINDING IN THE CHEST. Assessment & Plan - Diagnosis (1) Sepsis Qualifiers: Sepsis type: sepsis due to unspecified organism Qualified Code(s): A41.9 - Sepsis, unspecified organism Is this a current diagnosis for this admission?: Yes (2) Acute diverticulitis Is this a current diagnosis for this admission?: Yes Plan: Continue meropenem and Flagyl (3) UTI (urinary tract infection) Is this a current diagnosis for this admission?: Yes (4) History of atrial fibrillation Is this a current diagnosis for this admission?: Yes (5) Acute kidney injury Is this a current diagnosis for this admission?: Yes Plan: Resolved Renal function back to normal We will discontinue IV fluids (6) Chronic combined systolic and diastolic CHF (congestive heart failure) Is this a current diagnosis for this admission?: Yes (7) Dementia Qualifiers: Dementia type: unspecified type Dementia behavioral disturbance: without behavioral disturbance Qualified Code(s): F03.90 - Unspecified dementia without behavioral disturbance Is this a current diagnosis for this admission?: Yes (8) Ambulatory dysfunction Is this a current diagnosis for this admission?: Yes (9) COPD (chronic obstructive pulmonary disease) Qualifiers: COPD type: unspecified COPD Qualified Code(s): J44.9 - Chronic obstructive pulmonary disease, unspecified Is this a current diagnosis for this admission?: Yes (10) Fecal impaction Is this a current diagnosis for this admission?: Yes (11) DNR (do not resuscitate) Is this a current diagnosis for this admission?: Yes (12) Gram-negative bacteremia Is this a current diagnosis for this admission?: Yes Plan: Secondary to UTI ; continue meropenem - Time Time Spent with patient: PT evaluation in a.m. Resume diet ; patient is tolerating well; Time Spent with patient: 25-34 minutes
--- NOTE | 2017-08-31 15:45 | Physician Advisory Note ---
Physician Advisor ProgressNote .: Pursuant to the plan for Bandar Meek, I have reviewed the medical record for this patient. Physician Advisor Statement: Please consider documenting, if you agree: 1. "Acute Hypoxemic Respiratory Failure, likely due to , evidenced by O2 sat 87% RA for EMS & accessory muscle use in ED" 2. "ОЛЕГ, suspect due to " (sepsis? dehydration? urinary obstruction due to clogged Anderson? ...) 3. "sepsis, due to [UTI? diverticulitis?], evidenced by [ОЛЕГ ? AMS/encephalopathy? AcRespFailure? other organ dysfunction?]" - Is the GNeg organism in the blood the cause of the sepsis, or a separate, nonsymptomatic process? Use of the term "bacteremia", per coding rules, implies to coders that there is NO SEPSIS, so without clarification or correction, it's asking for a query. - Evidence of sepsis includes leukocytosis, tachypnea, tachycardia, ОЛЕГ & AMS /encephalop w/GCS total 14 (if due to sepsis, not something else), high lactate. 4. "Acute metabolic encephalopathy due to [sepsis on top of dementia?, acute resp failure? - 'he is different from baseline mental status in this way:_ '}" - or is his mental status change due to a psychiatric issue, or ...? 5. "Acute hypernatremia, suspect due to " Thanks! CK
[2017-08-31] MEDS: IMIPENEM/CILASTATIN SODIUM 1,000 MG in NORMAL SALINE 250 ML IV SCH ×2 (17:49→23:45)
[2017-08-31] MEDS: SENNOSIDES/DOCUSATE 8.6-50 MG 1 EACH TABLET PO SCH (17:49)
[2017-08-31] MEDS: ATORVASTATIN CALCIUM 40 MG TABLET PO SCH (21:12)
[2017-08-31] MEDS: FERROUS SULFATE 325 MG TABLET PO SCH (21:13)
[2017-08-31] MEDS: QUETIAPINE FUMARATE 25 MG TABLET PO SCH (21:13)
[2017-08-31] MEDS: FLUTICASONE/SALMETEROL DISKUS 250-50 MCG/DOSE IH SCH (21:18)
[2017-09-01] MEDS: METRONIDAZOLE 500 MG/NS RTU 100 ML IV SCH ×2 (03:39→08:52)
[2017-09-01 05:05] LABS: ABSOLUTE EOSINOPHILS # (AUTO) 0.1 10^3/uL (0.0-0.6); ABSOLUTE LYMPHOCYTES (AUTO) 0.9 10^3/uL (0.5-4.7); ABSOLUTE MONOCYTES (AUTO) 0.8 10^3/uL (0.1-1.4); ABSOLUTE NEUT (AUTO) 6.3 10^3/uL (1.7-8.2); BASOPHILS % (AUTO) 0.3 % (0-2); EOSINOPHILS % (AUTO) 1.7 % (0-6); HEMATOCRIT 29.3 % (37.9-51.0); HEMOGLOBIN 9.9 g/dL (13.5-17.0); LYMPHOCYTES % (AUTO) 10.9 % (13-45); MEAN CORPUSCULAR VOLUME 91 fl (80-97); MONOCYTES % (AUTO) 9.4 % (3-13); PLATELET COUNT 143 10^3/uL (150-450); RED CELL DISTRIBUTION WIDTH 13.3 % (11.5-14.0); SEGMENTED NEUTROPHILS % (AUTO) 77.7 % (42-78); TOTAL CELLS COUNTED % (AUTO) 100 %; WHITE BLOOD COUNT 8.1 10^3/uL (4.0-10.5)
[2017-09-01 05:28] LABS: ANION GAP 11 (5-19); BLOOD UREA NITROGEN 25 mg/dL (7-20); CALCIUM 8.6 mg/dL (8.4-10.2); CARBON DIOXIDE 23 mmol/L (22-30); CHLORIDE 111 mmol/L (98-107); GLUCOSE 96 mg/dL (75-110); POTASSIUM 3.5 mmol/L (3.6-5.0); SODIUM 145.3 mmol/L (137-145)
[2017-09-01] MEDS: IMIPENEM/CILASTATIN SODIUM 1,000 MG in NORMAL SALINE 250 ML IV SCH (05:44)
[2017-09-01] MEDS: IPRATROPIUM/ALBUTEROL 0.5-2.5 MG/3 ML AMPUL NEB SCH (08:05)
[2017-09-01] MEDS ORDERED: LEVALBUTEROL HCL NEB 0.63 MG/3 ML AMPUL NEB PRN (09:18)
[2017-09-01] MEDS ORDERED: (PENDING PHARMACY ID) (Umeclidinium Brm/Vilanterol Tr [Anoro Ellipta 62.5-25 Mcg Inh] 1 PU IH SCH (10:00)
[2017-09-01] MEDS ORDERED: DOCUSATE SODIUM 100 MG CAPSULE PO SCH (10:00)
[2017-09-01] MEDS ORDERED: SENNOSIDES 17.2 MG PO SCH (10:00)
[2017-09-01] MEDS ORDERED: POTASSIUM CHLORIDE 10 MEQ TABLET.SA PO ONE (10:00)
[2017-09-01] MEDS: ASPIRIN 325 MG TABLET PO SCH (10:04)
[2017-09-01] MEDS: ATORVASTATIN CALCIUM 40 MG TABLET PO SCH ×2 (10:04→21:28)
[2017-09-01] MEDS: METOPROLOL SUCCINATE 25 MG TAB.SR.24H PO SCH ×2 (10:04→21:26)
[2017-09-01] MEDS: FERROUS SULFATE 325 MG TABLET PO SCH ×2 (10:05→21:29)
[2017-09-01] MEDS: FUROSEMIDE 20 MG TABLET PO SCH (10:05)
[2017-09-01] MEDS: DONEPEZIL HCL 5 MG TABLET PO SCH (10:05)
[2017-09-01] MEDS: PHENOBARBITAL 64.8 MG TABLET PO SCH ×2 (10:06→21:26)
[2017-09-01] MEDS: FINASTERIDE 5 MG TABLET PO SCH (10:06)
[2017-09-01] MEDS: LACTOBACILLUS ACIDOPHILUS 250 MG TAB PO SCH ×2 (10:06→17:38)
[2017-09-01] MEDS: DOCUSATE SODIUM 100 MG CAPSULE PO SCH ×2 (10:06→17:37)
[2017-09-01] MEDS: FLUTICASONE NASAL SPRAY 50 MCG/SPRY 120 SPRAY/16 GM NASL SCH (10:07)
[2017-09-01] MEDS: FLUTICASONE/SALMETEROL DISKUS 250-50 MCG/DOSE IH SCH ×2 (10:07→21:30)
--- NOTE | 2017-09-01 11:24 | PROGRESS NOTE E ---
Progress Note NAME: JESENIA LÓPEZ : 1940 AGE: 77Y DATE: 09/01/2017 ROOM: 334 SUBJECTIVE: The patient is sitting up in bed, and he is quite hard of hearing. The patient denies any nausea, vomiting, diarrhea. No shortness of breath, dizziness, chest pain. No fevers, chills. No abdominal pain. The patient is tolerating his diet without issue, and the patient does not voice any other concerns at this time. REVIEW OF SYSTEMS: The rest of the review of systems is negative. MEDICATIONS: Medications have been reviewed. OBJECTIVE: GENERAL: The patient is a 77-year-old male who is awake, alert, and oriented to person, place, time, and situation. He is verbal, conversational, does not appear to be distressed. VITAL SIGNS: As follows: Temperature is 98.2, pulse 98, respirations 16, blood pressure is 122/67, oxygen saturation is 97% on 1 L nasal cannula. SKIN: Warm and dry. No rash. He is not diaphoretic. HEENT: Pupils equal, round, and reactive to light and accommodation. Conjunctivae pink. There is no evidence of JVP. CARDIOVASCULAR: Heart is regular. There is no murmur or rub. CHEST: Clear, symmetrical, unlabored. ABDOMEN: Nontender, nondistended. EXTREMITIES: No clubbing, cyanosis, edema. PSYCHIATRIC: Appropriate affect. Pleasant mood. DIAGNOSTICS: Lab values are as follows. Hematology obtained on 09/01/2017: WBCs are 8.1, hemoglobin is 9.9, hematocrit is 29.3, platelet count is 143,000. Chemistry obtained on 09/01/2017: Sodium is 145, potassium is 3.5, chloride is 111, carbon dioxide 23, BUN 25, creatinine is 0.90, glucose 96, calcium is 8.6. IMPRESSION AND PLAN: 1. PROTEUS MIRABILIS URINARY TRACT INFECTION. Will transition antibiotic coverage to meropenem and follow. 2. PROTEUS MIRABILIS BACTEREMIA. The source is most likely #1. Will continue to monitor. Will repeat blood cultures and transition to meropenem. 3. SEPSIS SECONDARY TO #1 AND #2. The patient is resolved. 4. PAROXYSMAL ATRIAL FIBRILLATION. The patient is currently rate controlled. 5. ACUTE KIDNEY INJURY, RESOLVED. The patient is well hydrated. 6. AMBULATORY DYSFUNCTION. Continue PT. 7. CHRONIC OBSTRUCTIVE PULMONARY DISEASE. Continue home medication. 8. FECAL IMPACTION, MOST LIKELY CONTRIBUTORY TO EVIDENCE OF POSSIBLE DIVERTICULITIS. This appears to have resolved. The patient has had a bowel movement. DISPOSITION: THE PATIENT IS A DO NOT RESUSCITATE/DO NOT INTUBATE. Pending the patient's symptomatology and diagnostic findings, will re-evaluate in the a.m. Will downgrade the patient to a medical bed. Time spent on this followup, including assessment/plan, physical examination, patient education, review of records, and family meeting, is 25 minutes. DICTATING PHYSICIAN: GRICELDA NEWMAN NP [id number] PHY#: [id number] ID: [id number] JOB#: [id number] ACCT: [id number] cc: >
[2017-09-01] MEDS: MEROPENEM 1 GM in NORMAL SALINE 50 ML IV SCH ×2 (14:01→21:28)
[2017-09-01] MEDS: TAMSULOSIN HCL 0.4 MG CAP.SR.24H PO SCH (17:38)
[2017-09-01] MEDS: SENNOSIDES/DOCUSATE 8.6-50 MG 1 EACH TABLET PO SCH (17:38)
[2017-09-01] MEDS: QUETIAPINE FUMARATE 25 MG TABLET PO SCH (21:27)
[2017-09-02] MEDS: MEROPENEM 1 GM in NORMAL SALINE 50 ML IV SCH ×2 (05:13→13:53)
[2017-09-02 06:23] LABS: ABSOLUTE EOSINOPHILS # (AUTO) 0.2 10^3/uL (0.0-0.6); ABSOLUTE LYMPHOCYTES (AUTO) 0.9 10^3/uL (0.5-4.7); ABSOLUTE MONOCYTES (AUTO) 0.8 10^3/uL (0.1-1.4); ABSOLUTE NEUT (AUTO) 5.5 10^3/uL (1.7-8.2); BASOPHILS % (AUTO) 0.4 % (0-2); EOSINOPHILS % (AUTO) 2.5 % (0-6); HEMATOCRIT 30.2 % (37.9-51.0); HEMOGLOBIN 10.4 g/dL (13.5-17.0); LYMPHOCYTES % (AUTO) 11.7 % (13-45); MEAN CORPUSCULAR HEMOGLOBIN 31.4 pg (27.0-33.4); MEAN CORPUSCULAR HGB CONC 34.3 g/dL (32.0-36.0); MEAN CORPUSCULAR VOLUME 92 fl (80-97); MONOCYTES % (AUTO) 10.8 % (3-13); PLATELET COUNT 158 10^3/uL (150-450); RED CELL DISTRIBUTION WIDTH 13.3 % (11.5-14.0); SEGMENTED NEUTROPHILS % (AUTO) 74.6 % (42-78); TOTAL CELLS COUNTED % (AUTO) 100 %; WHITE BLOOD COUNT 7.4 10^3/uL (4.0-10.5)
[2017-09-02 06:42] LABS: ANION GAP 11 (5-19); BLOOD UREA NITROGEN 20 mg/dL (7-20); CALCIUM 8.7 mg/dL (8.4-10.2); CARBON DIOXIDE 26 mmol/L (22-30); CHLORIDE 107 mmol/L (98-107); GLUCOSE 94 mg/dL (75-110); POTASSIUM 3.5 mmol/L (3.6-5.0)
[2017-09-02] MEDS: DOCUSATE SODIUM 100 MG CAPSULE PO SCH ×2 (09:38→17:41)
[2017-09-02] MEDS: DONEPEZIL HCL 5 MG TABLET PO SCH (09:38)
[2017-09-02] MEDS: ATORVASTATIN CALCIUM 40 MG TABLET PO SCH ×2 (09:38→22:28)
[2017-09-02] MEDS: ASPIRIN 325 MG TABLET PO SCH (09:38)
[2017-09-02] MEDS: FERROUS SULFATE 325 MG TABLET PO SCH ×2 (09:38→22:30)
[2017-09-02] MEDS: LACTOBACILLUS ACIDOPHILUS 250 MG TAB PO SCH ×2 (09:38→17:44)
[2017-09-02] MEDS: PHENOBARBITAL 64.8 MG TABLET PO SCH ×2 (09:38→22:28)
[2017-09-02] MEDS: FINASTERIDE 5 MG TABLET PO SCH (09:39)
[2017-09-02] MEDS: FLUTICASONE NASAL SPRAY 50 MCG/SPRY 120 SPRAY/16 GM NASL SCH (09:40)
[2017-09-02] MEDS: METOPROLOL SUCCINATE 25 MG TAB.SR.24H PO SCH ×2 (09:40→22:28)
[2017-09-02] MEDS: FUROSEMIDE 20 MG TABLET PO SCH (09:40)
[2017-09-02] MEDS: FLUTICASONE/SALMETEROL DISKUS 250-50 MCG/DOSE IH SCH ×2 (09:41→22:31)
--- NOTE | 2017-09-02 14:21 | Progress Note ---
Provider Note Provider Note: ID Consult Note- I was asked to review the patient's chart by the Pharmacy Service. The patient has Proteus mirabilis in blood and urine. The organism is sensitive to ampicillin, TMP-SMX, and cefazolin. He appears to have presented with evidence of obstructive uropathy, which has resolved. Serum creatinine is now <1.0. Recommend changing antibiotics to cefazolin 1 gm IV q 8 hours. Once he is ready for discharge, he can be given Bactrim (TMP-SMX) DS- 1 tab BID. Would treat for a total of 10-14 days. Please call if there are questions. Jake Mcintyre MD Pager: [phone]
[2017-09-02] MEDS: SENNOSIDES/DOCUSATE 8.6-50 MG 1 EACH TABLET PO SCH (17:41)
[2017-09-02] MEDS: TAMSULOSIN HCL 0.4 MG CAP.SR.24H PO SCH (17:44)
--- NOTE | 2017-09-02 18:01 | PDOC PROGRESS REPORT ---
Subjective Progress Note for:: 09/02/17 Subjective:: pt tells me he is feelign a lot better today, he is a little confused about date and he did not remember that he has an indwelling pugh. Eating well. No pain, no SOB, no chest pain. Reason For Visit: SEPSIS UTI,DIVERTICULITIS FECAL IMPATION Physical Exam Vital Signs: Temp Pulse Resp BP Pulse Ox 97.9 F 90 18 110/63 94 09/02/17 11:21 09/02/17 13:58 09/02/17 12:01 09/02/17 11:21 09/02/17 11:21 Intake & Output 09/01/17 09/02/17 09/03/17 06:59 06:59 06:59 Intake Total 2565 1145 Output Total 1925 2525 Balance 640 -1380 Weight 89.6 kg 86.7 kg General appearance: PRESENT: no acute distress, cooperative Head exam: PRESENT: atraumatic, normocephalic Eye exam: ABSENT: scleral icterus Mouth exam: PRESENT: moist, tongue midline Respiratory exam: PRESENT: clear to auscultation maykel, unlabored. ABSENT: rales , rhonchi, wheezes Cardiovascular exam: PRESENT: RRR, systolic murmur Pulses: PRESENT: normal radial pulses GI/Abdominal exam: PRESENT: normal bowel sounds, soft. ABSENT: distended, tenderness Neurological exam: PRESENT: alert, awake, oriented to person, oriented to place , other - evidence of cognitive impairment. ABSENT: oriented to time Skin exam: PRESENT: dry, warm Results Laboratory Results: 09/02/17 05:49 09/02/17 05:49 09/02/17 09/02/17 05:49 05:49 WBC 7.4 RBC 3.30 L Hgb 10.4 L Hct 30.2 L MCV 92 MCH 31.4 MCHC 34.3 RDW 13.3 Plt Count 158 Seg Neutrophils % 74.6 Lymphocytes % 11.7 L Monocytes % 10.8 Eosinophils % 2.5 Basophils % 0.4 Absolute Neutrophils 5.5 Absolute Lymphocytes 0.9 Absolute Monocytes 0.8 Absolute Eosinophils 0.2 Absolute Basophils 0.0 Sodium 144.0 Potassium 3.5 L Chloride 107 Carbon Dioxide 26 Anion Gap 11 BUN 20 Creatinine 0.84 Est GFR ( Amer) > 60 Est GFR (Non-Af Amer) > 60 Glucose 94 Calcium 8.7 08/30/17 13:39 NT-Pro-B Natriuret Pep 4900 H Impressions: Abdomen/Pelvis CT 08/30/17 04:07 IMPRESSION: 1. Possible early acute diverticulitis of the proximal sigmoid colon. No paracolic abscess formation. 2. 3.3 cm infrarenal abdominal aortic aneurysm. Continued follow-up in 3 years recommended. 3. Moderate bilateral hydronephrosis without obstructing calculus identified. 4. Large amount stool in the rectum. This could be seen with fecal impaction. 5. Cardiomegaly with coronary artery atherosclerosis. This exam was performed according to our departmental dose-optimization program, which includes automated exposure control, adjustment of the mA and/or kV according to patient size and/or use of iterative reconstruction technique. Chest X-Ray 08/30/17 12:21 IMPRESSION: NO ACUTE RADIOGRAPHIC FINDING IN THE CHEST. Assessment & Plan - Diagnosis (1) Bacteremia Is this a current diagnosis for this admission?: Yes Plan: Due to proteus UTI, per ID consult ABX changed to cafazolin. Meropenem stopped. CLinically stable. (2) Urinary tract infection due to Proteus Is this a current diagnosis for this admission?: Yes Plan: please see bacteremia above. UTI mary due to chronic indwelling pugh. Family states they have tried to have it removed but he always ends up with pugh again. He lives in and [facility] (4) Acute kidney injury Is this a current diagnosis for this admission?: Yes Plan: resolved, was likley due to UTI and dehydration with sepsis. (5) COPD exacerbation Is this a current diagnosis for this admission?: Yes Plan: stable COPD now, cont current meds (6) Fecal impaction Is this a current diagnosis for this admission?: Yes Plan: resolved, monitor for regular BM and treat as indicated - Time Time Spent with patient: 25-34 minutes Medications reviewed and adjusted accordingly: Yes Anticipated discharge: Home - Inpatient Certification Based on my medical assessment, after consideration of the patient's comorbidities, presenting symptoms, or acuity I expect that the services needed warrant INPATIENT care.: Yes I certify that my determination is in accordance with my understanding of Medicare's requirements for reasonable and necessary INPATIENT services [42 CFR 412.3e].: Yes Medical Necessity: Need Close Monitoring Due to Risk of Patient Decompensation
[2017-09-02] MEDS: QUETIAPINE FUMARATE 25 MG TABLET PO SCH (22:30)
[2017-09-02] MEDS: CEFAZOLIN 1 GM/D5W RTU 1 GM/50 ML RTUPB IV SCH (22:32)
[2017-09-03 04:33] LABS: ANION GAP 7 (5-19); BLOOD UREA NITROGEN 18 mg/dL (7-20); CALCIUM 8.9 mg/dL (8.4-10.2); CARBON DIOXIDE 29 mmol/L (22-30); CHLORIDE 105 mmol/L (98-107); GLUCOSE 87 mg/dL (75-110); POTASSIUM 3.7 mmol/L (3.6-5.0); SODIUM 141.4 mmol/L (137-145)
[2017-09-03] MEDS: CEFAZOLIN 1 GM/D5W RTU 1 GM/50 ML RTUPB IV SCH ×3 (05:30→21:53)
[2017-09-03] MEDS: LACTOBACILLUS ACIDOPHILUS 250 MG TAB PO SCH ×2 (09:49→18:42)
[2017-09-03] MEDS: DONEPEZIL HCL 5 MG TABLET PO SCH (09:49)
[2017-09-03] MEDS: DOCUSATE SODIUM 100 MG CAPSULE PO SCH ×2 (09:49→18:42)
[2017-09-03] MEDS: FINASTERIDE 5 MG TABLET PO SCH (09:49)
[2017-09-03] MEDS: PHENOBARBITAL 64.8 MG TABLET PO SCH ×2 (09:49→21:52)
[2017-09-03] MEDS: METOPROLOL SUCCINATE 25 MG TAB.SR.24H PO SCH (09:49)
[2017-09-03] MEDS: ASPIRIN 325 MG TABLET PO SCH (09:49)
[2017-09-03] MEDS: FERROUS SULFATE 325 MG TABLET PO SCH ×2 (09:49→21:53)
[2017-09-03] MEDS: ATORVASTATIN CALCIUM 40 MG TABLET PO SCH ×2 (09:50→21:52)
[2017-09-03] MEDS: FUROSEMIDE 20 MG TABLET PO SCH (09:50)
[2017-09-03] MEDS: FLUTICASONE/SALMETEROL DISKUS 250-50 MCG/DOSE IH SCH ×2 (09:51→21:54)
[2017-09-03] MEDS: FLUTICASONE NASAL SPRAY 50 MCG/SPRY 120 SPRAY/16 GM NASL SCH (09:52)
[2017-09-03 15:57] LABS: ANION GAP 11 (5-19); BLOOD UREA NITROGEN 20 mg/dL (7-20); CALCIUM 8.6 mg/dL (8.4-10.2); CARBON DIOXIDE 28 mmol/L (22-30); CHLORIDE 102 mmol/L (98-107); GLUCOSE 110 mg/dL (75-110); POTASSIUM 3.6 mmol/L (3.6-5.0)
[2017-09-03] MEDS ORDERED: POTASSIUM CHLORIDE 20 MEQ/15 ML UDCUP PO ONE (17:09)
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
[2017-09-03] MEDS: SENNOSIDES/DOCUSATE 8.6-50 MG 1 EACH TABLET PO SCH (18:41)
[2017-09-03] MEDS: TAMSULOSIN HCL 0.4 MG CAP.SR.24H PO SCH (18:42)
[2017-09-03] MEDS ORDERED: METOPROLOL TARTRATE 25 MG TABLET PO ONE (19:00)
[2017-09-03] MEDS: QUETIAPINE FUMARATE 25 MG TABLET PO SCH (21:53)
[2017-09-04] MEDS: CEFAZOLIN 1 GM/D5W RTU 1 GM/50 ML RTUPB IV SCH (06:09)
[2017-09-04 08:19] LABS: ANION GAP 8 (5-19); BLOOD UREA NITROGEN 20 mg/dL (7-20); CALCIUM 8.9 mg/dL (8.4-10.2); CARBON DIOXIDE 29 mmol/L (22-30); CHLORIDE 105 mmol/L (98-107); GLUCOSE 101 mg/dL (75-110); SODIUM 141.6 mmol/L (137-145)
[2017-09-04] MEDS ORDERED: METOPROLOL SUCCINATE 25 MG TAB.SR.24H PO SCH (10:00)
[2017-09-04] MEDS ORDERED: SULFAMETHOXAZOLE/TRIMETHOPRIM 800-160 MG TABLET PO SCH (10:00)
[2017-09-04] MEDS: DONEPEZIL HCL 5 MG TABLET PO SCH (10:09)
[2017-09-04] MEDS: PHENOBARBITAL 64.8 MG TABLET PO SCH (10:09)
[2017-09-04] MEDS: DOCUSATE SODIUM 100 MG CAPSULE PO SCH (10:09)
[2017-09-04] MEDS: ASPIRIN 325 MG TABLET PO SCH (10:10)
[2017-09-04] MEDS: FERROUS SULFATE 325 MG TABLET PO SCH (10:10)
[2017-09-04] MEDS: ATORVASTATIN CALCIUM 40 MG TABLET PO SCH (10:10)
[2017-09-04] MEDS: FINASTERIDE 5 MG TABLET PO SCH (10:10)
[2017-09-04] MEDS: LACTOBACILLUS ACIDOPHILUS 250 MG TAB PO SCH (10:10)
[2017-09-04] MEDS: FUROSEMIDE 20 MG TABLET PO SCH (10:10)
[2017-09-04] MEDS: FLUTICASONE NASAL SPRAY 50 MCG/SPRY 120 SPRAY/16 GM NASL SCH (11:15)
[2017-09-04] MEDS: FLUTICASONE/SALMETEROL DISKUS 250-50 MCG/DOSE IH SCH (11:15)
[2017-09-04 16:17] VITALS: BP 109/54
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
[2017-09-05] MEDS ORDERED: CYANOCOBALAMIN (VITAMIN B-12) INJ 1000 MCG/1 ML VIAL IM SCH (10:00)
== END 2017-09-04 16:48 | DRG 698 ==
LOC: ER 02:13 → EH 05:28 → 3S 10:46 → 5 09-04 04:23
PROVIDERS: ADMIT Internal Medicine; ATTEND Internal Medicine
PROC: 3E0F73Z Introduction of Anti-inflammatory into Respiratory Tract, Via Natural or Artificial Opening (ICD-10-PCS; principal; 2017-08-30)
DX: T83.511A Infection and inflammatory reaction due to indwelling urethral catheter, initial encounter (principal); A41.59 Other Gram-negative sepsis; F03.91 Unspecified dementia, unspecified severity, with behavioral disturbance; I50.42 Chronic combined systolic (congestive) and diastolic (congestive) heart failure; N13.30 Unspecified hydronephrosis; K57.32 Diverticulitis of large intestine without perforation or abscess without bleeding; N17.9 Acute kidney failure, unspecified; J44.9 Chronic obstructive pulmonary disease, unspecified; N39.0 Urinary tract infection, site not specified; N18.9 Chronic kidney disease, unspecified; D63.1 Anemia in chronic kidney disease; I95.9 Hypotension, unspecified; Y84.6 Urinary catheterization as the cause of abnormal reaction of the patient, or of later complication, without mention of misadventure at the time of the procedure; K56.41 Fecal impaction; Z66 Do not resuscitate; G40.909 Epilepsy, unspecified, not intractable, without status epilepticus; I48.2 Chronic atrial fibrillation; B95.2 Enterococcus as the cause of diseases classified elsewhere; B96.4 Proteus (mirabilis) (morganii) as the cause of diseases classified elsewhere; R33.9 Retention of urine, unspecified; E86.0 Dehydration; Z95.5 Presence of coronary angioplasty implant and graft; Z87.440 Personal history of urinary (tract) infections; Z82.49 Family history of ischemic heart disease and other diseases of the circulatory system; Z79.82 Long term (current) use of aspirin; Z79.899 Other long term (current) drug therapy; Z79.51 Long term (current) use of inhaled steroids
CPT/HCPCS: 36415; 51702; 71045; 74176; 80048; 80053; 81001; 82803; 82962; 83605; 83735; 83880; 85025; 85610; 87040; 87077; 87086; 87088; 87186; 93005; 93010; 94640; 96361; 96365; 96367; 99285; J0690; J0743; J1644; J1940; J2185; J2543; J3370; J3490; J7030; J7050; J7614; J7620

== ENCOUNTER 2017-09-17 13:14 | Emergency (ER) | payer MEDICARE ==
[2017-09-17 14:18] LABS: ABSOLUTE BASOPHILS # (AUTO) 0.1 10^3/uL (0.0-0.2); ABSOLUTE LYMPHOCYTES (AUTO) 0.9 10^3/uL (0.5-4.7); ABSOLUTE MONOCYTES (AUTO) 0.7 10^3/uL (0.1-1.4); ABSOLUTE NEUT (AUTO) 8.8 10^3/uL (1.7-8.2); BASOPHILS % (AUTO) 0.8 % (0-2); EOSINOPHILS % (AUTO) 0.5 % (0-6); HEMATOCRIT 36.6 % (37.9-51.0); HEMOGLOBIN 12.2 g/dL (13.5-17.0); LYMPHOCYTES % (AUTO) 8.4 % (13-45); MEAN CORPUSCULAR HGB CONC 33.5 g/dL (32.0-36.0); MEAN CORPUSCULAR VOLUME 93 fl (80-97); PLATELET COUNT 247 10^3/uL (150-450); RED BLOOD COUNT 3.95 10^6/uL (4.35-5.55); RED CELL DISTRIBUTION WIDTH 13.8 % (11.5-14.0); SEGMENTED NEUTROPHILS % (AUTO) 83.3 % (42-78); TOTAL CELLS COUNTED % (AUTO) 100 %; WHITE BLOOD COUNT 10.6 10^3/uL (4.0-10.5)
[2017-09-17 14:35] LABS: ALANINE AMINOTRANSFERASE 34 U/L (21-72); ALBUMIN 4.3 g/dL (3.5-5.0); ALKALINE PHOSPHATASE 115 U/L (38-126); ANION GAP 10 (5-19); ASPARTATE AMINO TRANSFERASE 31 U/L (17-59); BILIRUBIN,DIRECT 0.4 mg/dL (0.0-0.4); BILIRUBIN,TOTAL 0.4 mg/dL (0.2-1.3); BLOOD UREA NITROGEN 16 mg/dL (7-20); CALCIUM 9.4 mg/dL (8.4-10.2); CARBON DIOXIDE 26 mmol/L (22-30); CHLORIDE 108 mmol/L (98-107); GLUCOSE 114 mg/dL (75-110); LIPASE 42.6 U/L (23-300); POTASSIUM 4.1 mmol/L (3.6-5.0); SODIUM 143.9 mmol/L (137-145); TOTAL PROTEIN 7.9 g/dL (6.3-8.2)
[2017-09-17 15:31] LABS: APPEARANCE,URINE SLIGHTLY-CLOUDY; BILIRUBIN,URINE NEGATIVE (NEGATIVE); CALCIUM OXALATE CRYSTALS,URINE RARE /HPF; COLOR,URINE YELLOW; GLUCOSE, URINE NEGATIVE (NEGATIVE); KETONES,URINE NEGATIVE (NEGATIVE); LEUKOCYTE ESTERASE,URINE LARGE (NEGATIVE); NITRITE,URINE NEGATIVE (NEGATIVE); PROTEIN,URINE 100 mg/dL (NEGATIVE); URINE SPECIFIC GRAVITY 1.012; UROBILINOGEN,URINE NEGATIVE mg/dL (<2.0)
--- NOTE | 2017-09-17 16:09 | ER Document Report ---
ED General - General Chief Complaint: Abdominal Pain Stated Complaint: ABDOMINAL PAIN Time Seen by Provider: 09/17/17 14:17 Mode of Arrival: Ambulatory Information source: Patient Notes: This is a 77-year-old man with a recent history of diverticulitis, UTI with sepsis who is sent in from the longterm because of abdominal pain. Patient does have a chronic Anderson due to bladder incompetence. Patient has been afebrile. Patient states he abdominal pain started over the last day. TRAVEL OUTSIDE OF THE [place] IN LAST 30 DAYS: No - HPI Onset: Just prior to arrival Onset/Duration: Gradual Quality of pain: Dull Severity: Moderate Pain Level: 2 Associated symptoms: denies: Chest pain, Fever, Sinus pain/drainage Exacerbated by: Denies Relieved by: Denies Similar symptoms previously: Yes Recently seen / treated by doctor: Yes - Related Data Allergies/Adverse Reactions: No Known Allergies Allergy (Verified 08/30/17 02:57) Past Medical History - General Information source: Patient - Social History Smoking Status: Unknown if Ever Smoked Cigarette use (# per day): No Chew tobacco use (# tins/day): No Frequency of alcohol use: None Drug Abuse: None Lives with: Long-Term Family History: Hypertension Patient has suicidal ideation: No Patient has homicidal ideation: No - Past Medical History Cardiac Medical History: Reports: Hx Atrial Fibrillation, 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 Denies: Hx Cirrhosis, Hx Gastroesophageal Reflux Disease, Hx Hepatitis Musculoskeltal Medical History: Denies Hx Arthritis Psychiatric Medical History: Denies: Hx Bipolar Disorder, Hx Dementia, Hx Depression Infectious Medical History: Denies: Hx Hepatitis Past Surgical History: Reports: Hx Abdominal Surgery - perforated hernia, Hx Cardiac Surgery - STENT, Hx Coronary Stent - Immunizations Hx Diphtheria, Pertussis, Tetanus Vaccination: Yes Hx Pneumococcal Vaccination: 01/02/11 Review of Systems - Review of Systems Constitutional: denies: Chills, Fever EENT: No symptoms reported Cardiovascular: No symptoms reported Respiratory: No symptoms reported Gastrointestinal: See HPI Genitourinary: No symptoms reported Male Genitourinary: No symptoms reported Musculoskeletal: No symptoms reported Skin: No symptoms reported Hematologic/Lymphatic: No symptoms reported Neurological/Psychological: No symptoms reported Physical Exam - Vital signs Vitals: Resp Pulse Ox 21 H 95 09/17/17 13:19 09/17/17 13:19 Notes: Physical exam: GENERAL: The 77-year-old man, alert and oriented 3, planning of abdominal pain HEAD: Atraumatic, normocephalic. EYES: Pupils equal round and reactive to light, extraocular movements intact, sclera anicteric, conjunctiva are normal. ENT: TMs normal, nares patent, oropharynx clear without exudates. Moist mucous membranes. NECK: Normal range of motion, supple without obvious mass or JVD. LUNGS: Breath sounds clear to auscultation bilaterally and equal. No wheezes rales or rhonchi. HEART: Regular rate and rhythm without murmurs, rubs or gallops. ABDOMEN: Soft, distended, positive tenderness over the suprapubic area. Decreased bowel sounds. Anderson not draining. Rectal: No decubiti over the sacrum. Stool brown, sent for study. No lesions over the perineum. EXTREMITIES: Normal range of motion, no pitting or edema. No clubbing or cyanosis. NEUROLOGICAL: Cranial nerves II through XII grossly intact. Normal speech, moving all extremities. PSYCH: Normal mood, normal affect. SKIN: Warm, Dry, normal turgor, no rashes or lesions noted. At side ultrasound: Bladder distention with Anderson in place. Anderson is not draining. Course - Re-evaluation Re-evalutation: 09/17/17 16:08 Anderson was replaced. 800 cc of urine was liberated. Patient had resolution of his pain. - Vital Signs Vital signs: Temp Pulse Resp BP Pulse Ox 99 F 101 H 22 H 119/67 97 09/17/17 13:20 09/17/17 13:20 09/17/17 18:16 09/17/17 18:16 09/17/17 18:16 - Laboratory Result Diagrams: 09/17/17 13:55 09/17/17 13:55 Laboratory results interpreted by me: 09/17/17 09/17/17 09/17/17 13:55 13:55 14:50 WBC 10.6 H RBC 3.95 L Hgb 12.2 L Hct 36.6 L Seg Neutrophils % 83.3 H Lymphocytes % 8.4 L Absolute Neutrophils 8.8 H Chloride 108 H Glucose 114 H Urine Protein 100 H Urine Blood SMALL H Ur Leukocyte Esterase LARGE H Discharge - Discharge Clinical Impression: Obstructive uropathy, UTI Condition: Stable Disposition: HOME, SELF-CARE Additional Instructions: Patient's Anderson was clogged and the bladder was distended. After the Anderson was changed, 800 cc of urine was liberated. There was prompt resolution of symptoms after that. Patient's labs have been good. The urine analysis after the placement of the new Anderson did show some white cells and a urine culture was sent. He was given ceftriaxone 1 g IV while he was in the ER. The plan will be for Keflex for the next few days. Patient should follow-up with his urologist: I would call for the next available appointment on Tuesday. Return to the emergency room for worsening pain, fever, or any concerns is getting worse. Prescriptions: Cephalexin Monohydrate [Keflex 500 mg Capsule] 500 mg PO Q6H 5 Days capsule Referrals: MARIO RYAN MD [Primary Care Provider] - Follow up as needed
[2017-09-17] MEDS ORDERED: CEFTRIAXONE 1 GM/D5W RTU 1 GM/50 ML RTUPB IV ONE (16:17)
[2017-09-17 18:07] VITALS: BP 119/67
== END 2017-09-17 18:40 | disposition home or self-care (01) ==
LOC: ER 13:14
DX: N13.9 Obstructive and reflux uropathy, unspecified (principal); N39.0 Urinary tract infection, site not specified; R10.9 Unspecified abdominal pain; J44.9 Chronic obstructive pulmonary disease, unspecified
CPT/HCPCS: 99284; 51702; 96365; 36415; 87086; 83690; 85025; 82272; 87088; 80053; 81001; 87186; J0696

== ENCOUNTER 2017-10-29 14:26 | Emergency (ER) | payer MEDICARE ==
--- NOTE | 2017-10-29 14:55 | ER Document Report ---
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 It is noted that the Anderson supposed be flushed weekly but has not been done at the facility, and family is concerned that is clogged. Small amount of urine is still noted in the Anderson catheter bag Admit to lower abdominal pressure TRAVEL OUTSIDE OF THE [place] IN LAST 30 DAYS: No - HPI Onset: Other Onset/Duration: Persistent, Worse Quality of pain: Pressure Severity: Moderate Pain Level: 3 Associated symptoms: Other Exacerbated by: Denies Relieved by: Denies Similar symptoms previously: Yes Recently seen / treated by doctor: Yes - Related Data Allergies/Adverse Reactions: No Known Allergies Allergy (Verified 08/30/17 02:57) Past Medical History - Social History Smoking Status: Never Smoker Cigarette use (# per day): No Chew tobacco use (# tins/day): No Smoking Education Provided: No Family History: Reviewed & Not Pertinent, Hypertension - Past Medical History Cardiac Medical History: Reports: Hx Atrial Fibrillation, 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 Denies: Hx Cirrhosis, Hx Gastroesophageal Reflux Disease, Hx Hepatitis Musculoskeletal Medical History: Denies Hx Arthritis Psychiatric Medical History: Denies: Hx Bipolar Disorder, Hx Dementia, Hx Depression Infectious Medical History: Denies: Hx Hepatitis Past Surgical History: Reports: Hx Abdominal Surgery - perforated hernia, Hx Cardiac Surgery - STENT, Hx Coronary Stent - Immunizations Hx Diphtheria, Pertussis, Tetanus Vaccination: Yes Hx Pneumococcal Vaccination: 01/02/11 Review of Systems - Review of Systems Notes: REVIEW OF SYSTEMS: CONSTITUTIONAL : Denies fever, chills, or sweats. Denies recent illness. EENT: Denies eye, ear, throat, or mouth pain or symptoms. Denies nasal or sinus congestion or discharge. Denies throat, tongue, or mouth swelling or difficulty swallowing. CARDIOVASCULAR: Denies chest pain. Denies palpitations or racing or irregular heart beat. Denies ankle edema. RESPIRATORY: Denies cough, cold, or chest congestion. Denies shortness of breath, difficulty breathing, or wheezing. GASTROINTESTINAL: Admits to abdominal pain. GENITOURINARY: Admits pelvic pain MUSCULOSKELETAL: Denies back or neck pain or stiffness. Denies joint pain or swelling. SKIN: Denies rash, lesions or sores. HEMATOLOGIC : Denies easy bruising or bleeding. LYMPHATIC: Denies swollen, enlarged glands. NEUROLOGICAL: Denies confusion or altered mental status. Denies passing out or loss of consciousness. Denies dizziness or lightheadedness. Denies headache. Denies weakness or paralysis or loss of use of either side. Denies problems with gait or speech. Denies sensory loss, numbness, or tingling. Denies seizures. PSYCHIATRIC: Denies anxiety or stress. Denies depression, suicidal ideation, or homicidal ideation. ALL OTHER SYSTEMS REVIEWED AND NEGATIVE. Dictation was performed using [employer] voice recognition software PHYSICAL EXAMINATION: GENERAL: Well-appearing, well-nourished and in no acute distress. Strong smell of urine HEAD: Atraumatic, normocephalic. EYES: Pupils equal round and reactive to light, extraocular movements intact, sclera anicteric, conjunctiva are normal. ENT: Nares patent, oropharynx clear without exudates. Moist mucous membranes. NECK: Normal range of motion, supple without lymphadenopathy LUNGS: Breath sounds clear to auscultation bilaterally and equal. No wheezes rales or rhonchi. HEART: Regular rate and rhythm without murmurs ABDOMEN: Distended abdomen tender to palpation suprapubic region Musculoskeletal: Normal range of motion, no pitting or edema. No cyanosis. NEUROLOGICAL: Cranial nerves grossly intact. Normal speech, normal gait. Normal sensory, motor exams PSYCH: Normal mood, normal affect. SKIN: Warm, Dry, normal turgor, no rashes or lesions noted. Course - Re-evaluation Re-evalutation: 10/29/17 14:55 I will replace the 18 [place] Anderson catheter, I expect this to relieve a lot of the patient's pressure 10/29/17 16:34 Patient's urinalysis no significant amount of white blood cells, given his presentation history of indwelling Anderson catheter my concern is for a UTI culture has been ordered Family and patient are very happy with this plan After performing a Medical Screening Examination, I estimate there is LOW risk for ACUTE APPENDICITIS, BOWEL OBSTRUCTION, ACUTE CHOLECYSTITIS, PERFORATED DIVERTICULITIS, INCARCERATED HERNIA, PANCREATITIS, TESTICULAR TORSION or PERFORATED ULCER, thus I consider the discharge disposition reasonable. Also, there is no evidence or peritonitis, sepsis, or toxicity. I have reevaluated this patient multiple times and no significant life threatening changes are noted. The patient and I have discussed the diagnosis and risks, and we agree with discharging home with close follow-up with the understanding that symptoms and presentations can change. We also discussed returning to the Emergency Department immediately if new or worsening symptoms occur. We have discussed the symptoms which are most concerning (e.g., bloody stool, fever, changing or worsening pain, intractable vomiting - standard verbal up date) that necessitate immediate return. - Laboratory Result Diagrams: 10/29/17 15:15 10/29/17 15:15 Laboratory results interpreted by me: 10/29/17 10/29/17 15:15 15:35 RBC 3.93 L Hgb 12.4 L Hct 36.5 L Seg Neutrophils % 79.9 H Lymphocytes % 10.1 L Urine Protein 100 H Ur Leukocyte Esterase LARGE H Discharge - Discharge Clinical Impression: UTI (urinary tract infection) Qualifiers: Urinary tract infection type: catheter-associated UTI Indwelling urinary catheter type: unspecified Encounter type: subsequent encounter Qualified Code(s ): T83.511D - Infection and inflammatory reaction due to indwelling urethral catheter, subsequent encounter; N39.0 - Urinary tract infection, site not specified; N39.0 - Urinary tract infection, site not specified Condition: Stable Disposition: HOME, SELF-CARE Instructions: Urinary Tract Infection ([facility]) Prescriptions: Cephalexin Monohydrate [Keflex 500 mg Capsule] 500 mg PO BID 10 Days capsule Referrals: MARIO RYAN MD [Primary Care Provider] - Follow up as needed
[2017-10-29 15:31] LABS: ABSOLUTE EOSINOPHILS # (AUTO) 0.1 10^3/uL (0.0-0.6); ABSOLUTE MONOCYTES (AUTO) 0.8 10^3/uL (0.1-1.4); ABSOLUTE NEUT (AUTO) 7.5 10^3/uL (1.7-8.2); BASOPHILS % (AUTO) 0.4 % (0-2); EOSINOPHILS % (AUTO) 1.4 % (0-6); HEMATOCRIT 36.5 % (37.9-51.0); HEMOGLOBIN 12.4 g/dL (13.5-17.0); LYMPHOCYTES % (AUTO) 10.1 % (13-45); MEAN CORPUSCULAR HEMOGLOBIN 31.5 pg (27.0-33.4); MEAN CORPUSCULAR HGB CONC 33.9 g/dL (32.0-36.0); MEAN CORPUSCULAR VOLUME 93 fl (80-97); MONOCYTES % (AUTO) 8.2 % (3-13); PLATELET COUNT 164 10^3/uL (150-450); RED BLOOD COUNT 3.93 10^6/uL (4.35-5.55); RED CELL DISTRIBUTION WIDTH 13.7 % (11.5-14.0); SEGMENTED NEUTROPHILS % (AUTO) 79.9 % (42-78); TOTAL CELLS COUNTED % (AUTO) 100 %; WHITE BLOOD COUNT 9.4 10^3/uL (4.0-10.5)
[2017-10-29 15:42] LABS: ALANINE AMINOTRANSFERASE 30 U/L (21-72); ALKALINE PHOSPHATASE 104 U/L (38-126); ANION GAP 10 (5-19); ASPARTATE AMINO TRANSFERASE 34 U/L (17-59); BILIRUBIN,DIRECT 0.3 mg/dL (0.0-0.4); BILIRUBIN,TOTAL 0.3 mg/dL (0.2-1.3); BLOOD UREA NITROGEN 18 mg/dL (7-20); CALCIUM 8.9 mg/dL (8.4-10.2); CARBON DIOXIDE 26 mmol/L (22-30); CHLORIDE 107 mmol/L (98-107); GLUCOSE 107 mg/dL (75-110); POTASSIUM 4.4 mmol/L (3.6-5.0); SODIUM 142.6 mmol/L (137-145); TOTAL PROTEIN 7.7 g/dL (6.3-8.2)
[2017-10-29 16:12] LABS: APPEARANCE,URINE CLOUDY; BILIRUBIN,URINE NEGATIVE (NEGATIVE); COLOR,URINE YELLOW; GLUCOSE, URINE NEGATIVE (NEGATIVE); KETONES,URINE NEGATIVE (NEGATIVE); LEUKOCYTE ESTERASE,URINE LARGE (NEGATIVE); NITRITE,URINE NEGATIVE (NEGATIVE); PROTEIN,URINE 100 mg/dL (NEGATIVE); URINE SPECIFIC GRAVITY 1.015; UROBILINOGEN,URINE NEGATIVE mg/dL (<2.0)
[2017-10-29] MEDS ORDERED: CEFTRIAXONE 1 GM/D5W RTU 1 GM/50 ML RTUPB IV ONE (16:25)
[2017-10-29] MEDS ORDERED: CEFTRIAXONE INJ 1000 MG VIAL ONE (16:37)
[2017-10-29 17:34] VITALS: BP 120/66
== END 2017-10-29 17:25 | disposition home or self-care (01) ==
LOC: ER 14:26
DX: T83.511A Infection and inflammatory reaction due to indwelling urethral catheter, initial encounter (principal); N39.0 Urinary tract infection, site not specified; Y73.8 Miscellaneous gastroenterology and urology devices associated with adverse incidents, not elsewhere classified; Y84.6 Urinary catheterization as the cause of abnormal reaction of the patient, or of later complication, without mention of misadventure at the time of the procedure; N31.9 Neuromuscular dysfunction of bladder, unspecified; J44.9 Chronic obstructive pulmonary disease, unspecified; R10.2 Pelvic and perineal pain
CPT/HCPCS: 99284; 96374; 36415; 87040; 87086; 85025; 87088; 80053; 81001; 87186; J0696

== ENCOUNTER 2018-01-05 13:19 | Emergency (ER) | payer MEDICARE ==
[2018-01-05 14:15] VITALS: BP 121/57
[2018-01-05 14:53] LABS: AMORPHOUS SEDIMENT,URINE 2+ /HPF; APPEARANCE,URINE CLOUDY; BILIRUBIN,URINE NEGATIVE (NEGATIVE); COLOR,URINE YELLOW; GLUCOSE, URINE NEGATIVE (NEGATIVE); KETONES,URINE NEGATIVE (NEGATIVE); LEUKOCYTE ESTERASE,URINE LARGE (NEGATIVE); NITRITE,URINE NEGATIVE (NEGATIVE); PROTEIN,URINE 100 mg/dL (NEGATIVE); TRIPLE PHOSPHATE CRYSTAL,URINE MODERATE /HPF; URINE SPECIFIC GRAVITY 1.014; UROBILINOGEN,URINE NEGATIVE mg/dL (<2.0)
[2018-01-05 15:37] LABS: ABSOLUTE EOSINOPHILS # (AUTO) 0.2 10^3/uL (0.0-0.6); ABSOLUTE LYMPHOCYTES (AUTO) 1.1 10^3/uL (0.5-4.7); ABSOLUTE MONOCYTES (AUTO) 0.7 10^3/uL (0.1-1.4); ABSOLUTE NEUT (AUTO) 5.1 10^3/uL (1.7-8.2); BASOPHILS % (AUTO) 0.6 % (0-2); EOSINOPHILS % (AUTO) 2.3 % (0-6); HEMATOCRIT 35.3 % (37.9-51.0); HEMOGLOBIN 12.1 g/dL (13.5-17.0); LYMPHOCYTES % (AUTO) 15.7 % (13-45); MEAN CORPUSCULAR HEMOGLOBIN 31.8 pg (27.0-33.4); MEAN CORPUSCULAR HGB CONC 34.2 g/dL (32.0-36.0); MEAN CORPUSCULAR VOLUME 93 fl (80-97); MONOCYTES % (AUTO) 10.3 % (3-13); PLATELET COUNT 169 10^3/uL (150-450); RED CELL DISTRIBUTION WIDTH 13.1 % (11.5-14.0); SEGMENTED NEUTROPHILS % (AUTO) 71.1 % (42-78); TOTAL CELLS COUNTED % (AUTO) 100 %; WHITE BLOOD COUNT 7.2 10^3/uL (4.0-10.5)
[2018-01-05 16:02] LABS: ALANINE AMINOTRANSFERASE 36 U/L (21-72); ALBUMIN 3.7 g/dL (3.5-5.0); ALKALINE PHOSPHATASE 108 U/L (38-126); ANION GAP 10 (5-19); ASPARTATE AMINO TRANSFERASE 30 U/L (17-59); BILIRUBIN,DIRECT 0.4 mg/dL (0.0-0.4); BILIRUBIN,TOTAL 0.4 mg/dL (0.2-1.3); BLOOD UREA NITROGEN 16 mg/dL (7-20); CARBON DIOXIDE 26 mmol/L (22-30); CHLORIDE 105 mmol/L (98-107); GLUCOSE 102 mg/dL (75-110); POTASSIUM 4.4 mmol/L (3.6-5.0); SODIUM 140.5 mmol/L (137-145); TOTAL PROTEIN 6.8 g/dL (6.3-8.2)
--- NOTE | 2018-01-05 16:50 | ER Document Report ---
ED General - General Chief Complaint: Abdominal Pain Stated Complaint: ABDOMINAL PAIN Time Seen by Provider: 01/05/18 14:09 Mode of Arrival: Ambulatory Information source: Patient Notes: This is a 77-year-old gentleman who was brought into the emergency room with lower abdominal pain. The healthcare providers at the [facility] state that he was tugging on his Anderson. They are also concerned about a UTI. Patient states he did have some lower abdominal discomfort earlier but states he does feel fine now. TRAVEL OUTSIDE OF THE [place] IN LAST 30 DAYS: No - HPI Onset: Just prior to arrival Onset/Duration: Sudden Quality of pain: Dull Severity: Mild Pain Level: 1 Associated symptoms: denies: Chest pain, Fever, Nausea, Vomiting, Shortness of breath Exacerbated by: Denies Relieved by: Denies Similar symptoms previously: Yes Recently seen / treated by doctor: Yes - Related Data Allergies/Adverse Reactions: No Known Allergies Allergy (Verified 08/30/17 02:57) Past Medical History - General Information source: Patient, Transfer Record - Social History Smoking Status: Unknown if Ever Smoked Cigarette use (# per day): No Chew tobacco use (# tins/day): No Frequency of alcohol use: None Drug Abuse: None Lives with: Assisted Family History: Reviewed & Not Pertinent, Hypertension Patient has suicidal ideation: No Patient has homicidal ideation: No - Past Medical History Cardiac Medical History: Reports: Hx Atrial Fibrillation, 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 Denies: Hx Cirrhosis, Hx Gastroesophageal Reflux Disease, Hx Hepatitis Musculoskeletal Medical History: Denies Hx Arthritis Psychiatric Medical History: Denies: Hx Bipolar Disorder, Hx Dementia, Hx Depression Infectious Medical History: Denies: Hx Hepatitis Past Surgical History: Reports: Hx Abdominal Surgery - perforated hernia, Hx Cardiac Surgery - STENT, Hx Coronary Stent - Immunizations Hx Diphtheria, Pertussis, Tetanus Vaccination: Yes Hx Pneumococcal Vaccination: 01/02/11 Review of Systems - Review of Systems Constitutional: denies: Chills, Fever EENT: No symptoms reported Cardiovascular: No symptoms reported Respiratory: No symptoms reported Gastrointestinal: See HPI, Abdominal pain - Pain has resolved at this time. denies: Nausea, Vomiting Genitourinary: No symptoms reported Male Genitourinary: See HPI Musculoskeletal: No symptoms reported Skin: No symptoms reported Hematologic/Lymphatic: No symptoms reported Neurological/Psychological: No symptoms reported Physical Exam - Vital signs Vitals: Temp Pulse BP Pulse Ox 97.9 F 69 144/64 H 96 01/05/18 13:22 01/05/18 13:22 01/05/18 13:22 01/05/18 13:22 Notes: Physical exam: GENERAL: Patient is smiling and conversant, no acute distress. Patient states he had lower abdominal pain but he does not have any now. He states he did talk on the Anderson catheter. HEAD: Atraumatic, normocephalic. EYES: Pupils equal round and reactive to light, extraocular movements intact, sclera anicteric, conjunctiva are normal. ENT: TMs normal, nares patent, oropharynx clear without exudates. Moist mucous membranes. NECK: Normal range of motion, supple without obvious mass or JVD. LUNGS: Breath sounds clear to auscultation bilaterally and equal. No wheezes rales or rhonchi. HEART: Regular rate and rhythm without murmurs, rubs or gallops. ABDOMEN: Soft, normoactive bowel sounds. No tenderness to palpation. No guarding, no rebound. No masses appreciated. Penis: Anderson in place, it is eroding the urethra. There is mild erythema with no pus drainage. Testes are normal and there is no erythema redness or infection of the perineum. EXTREMITIES: Normal range of motion, no pitting or edema. No clubbing or cyanosis. NEUROLOGICAL: Cranial nerves II through XII grossly intact. Normal speech, moving all extremities. PSYCH: Normal mood, normal affect. SKIN: Warm, Dry, normal turgor, no rashes or lesions noted. Course - Vital Signs Vital signs: Temp Pulse Resp BP Pulse Ox 97.9 F 69 15 121/57 L 95 01/05/18 13:22 01/05/18 13:22 01/05/18 14:01 01/05/18 14:01 01/05/18 14:01 - Laboratory Result Diagrams: 01/05/18 15:30 01/05/18 15:30 Laboratory results interpreted by me: 01/05/18 01/05/18 14:00 15:30 RBC 3.80 L Hgb 12.1 L Hct 35.3 L Urine Protein 100 H Ur Leukocyte Esterase LARGE H Discharge - Discharge Clinical Impression: UTI Condition: Stable Disposition: HOME, SELF-CARE Additional Instructions: The blood work looked good today. The white count was normal. There is no fever. The urine did have some white cells and a culture was sent. Prescriptions: Cephalexin Monohydrate [Keflex 500 mg Capsule] 500 mg PO QID #28 capsule Referrals: MARIO RYAN MD [Primary Care Provider] - Follow up as needed
== END 2018-01-05 20:12 | disposition home or self-care (01) ==
LOC: ER 13:19
DX: N39.0 Urinary tract infection, site not specified (principal); R10.30 Lower abdominal pain, unspecified; I48.91 Unspecified atrial fibrillation; I50.9 Heart failure, unspecified; I25.2 Old myocardial infarction
CPT/HCPCS: 36415; 80053; 81001; 85025; 87086; 87088; 87186; 99285

== ENCOUNTER 2018-01-08 01:35 | Emergency (ER) | payer MEDICARE ==
--- NOTE | 2018-01-08 01:49 | ER Document Report ---
ED General - General Stated Complaint: ABDOMINAL PAIN Time Seen by Provider: 01/08/18 01:40 Notes: Patient is a 77-year-old male who presents with complaint of catheter problem. Patient stays at [facility]. He is currently being moved from his chair and the Anderson tubing got caught and pulled on the catheter. He said that part the catheter got pulled out has been having pain since then. They still have a catheter in place. No blood in the urine bag at this time on my evaluation. Patient complains of pain in his suprapubic region. TRAVEL OUTSIDE OF THE [place] IN LAST 30 DAYS: No - Related Data Allergies/Adverse Reactions: No Known Allergies Allergy (Verified 08/30/17 02:57) Past Medical History - Social History Smoking Status: Unknown if Ever Smoked Frequency of alcohol use: None Drug Abuse: None Family History: Reviewed & Not Pertinent, Hypertension - Past Medical History Cardiac Medical History: Reports: Hx Atrial Fibrillation, 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 Denies: Hx Cirrhosis, Hx Gastroesophageal Reflux Disease, Hx Hepatitis Musculoskeletal Medical History: Denies Hx Arthritis Psychiatric Medical History: Denies: Hx Bipolar Disorder, Hx Dementia, Hx Depression Infectious Medical History: Denies: Hx Hepatitis Past Surgical History: Reports: Hx Abdominal Surgery - perforated hernia, Hx Cardiac Surgery - STENT, Hx Coronary Stent - Immunizations Hx Diphtheria, Pertussis, Tetanus Vaccination: Yes Hx Pneumococcal Vaccination: 01/02/11 Review of Systems - Review of Systems Notes: My Normal Review Basic REVIEW OF SYSTEMS: CONSTITUTIONAL : Denies fever, chills, or sweats. Denies recent illness. GASTROINTESTINAL: Suprapubic abdominal pain. Denies nausea, vomiting, or diarrhea. GENITOURINARY: Anderson catheter malfunction ALL OTHER SYSTEMS REVIEWED AND NEGATIVE. Physical Exam - Vital signs Vitals: Temp Pulse Resp BP Pulse Ox 98.9 F 103 H 18 123/67 97 01/08/18 02:05 01/08/18 02:05 01/08/18 02:05 01/08/18 02:05 01/08/18 02:05 - Notes Notes: General Appearance: Well nourished, alert, cooperative, no acute distress, mild to moderate obvious discomfort. Vitals: reviewed, See vital signs table. Eyes: PERRL, EOMI, Conjuctiva clear Mouth: No decreasd moisture Abdomen: Some tenderness palpation of the suprapubic region. I did do a bedside ultrasound the patient does have a distended bladder. It does not look like the catheter tip is in the bladder but obviously is not draining appropriately. Genital: Catheter in penis. No redness or swelling to the penis. No blood coming from the urethra. Anderson catheter bag has yellow urine. Skin: warm, dry, appropriate color, no rash Neuro: speech clear, oriented x 2, normal affect, responds appropriately to questions. Course - Re-evaluation Re-evalutation: 01/08/18 02:59 After Anderson catheter was placed to the got out approximately 150 mL's of urine. After patient's urine retention resolved his pain is completely resolved. Feel patient safe to be discharged home. His urine was a bit cloudy and therefore we did send for UA and he does have infection. We will place him on Keflex. Encourage him return to ER if he has fevers, worsening recurrent pain, or any problem with his catheter. Dictation of this chart was performed using voice recognition software; therefore, there may be some unintended grammatical errors. - Vital Signs Vital signs: Temp Pulse Resp BP Pulse Ox 98.9 F 103 H 18 123/67 97 01/08/18 02:05 01/08/18 02:05 01/08/18 02:05 01/08/18 02:05 01/08/18 02:05 - Laboratory Laboratory results interpreted by me: 01/08/18 02:03 Urine Protein >=500 H Urine Blood SMALL H Ur Leukocyte Esterase LARGE H Discharge - Discharge Clinical Impression: Anderson catheter problem Qualifiers: Encounter type: initial encounter Qualified Code(s): T83.9XXA - Unspecified complication of genitourinary prosthetic device, implant and graft, initial encounter UTI (urinary tract infection) Qualifiers: Urinary tract infection type: site unspecified Hematuria presence: without hematuria Qualified Code(s): N39.0 - Urinary tract infection, site not specified Condition: Good Disposition: HOME, SELF-CARE Additional Instructions: Please take the antibiotic as prescribed. Please have your urine rechecked for infection in 5 days to make sure that your infection is improving. Please return to ER for fevers, confusion, or feel unwell. Prescriptions: Cephalexin Monohydrate [Keflex 500 mg Capsule] 500 mg PO Q6H 5 Days capsule Referrals: MARIO RYAN MD [Primary Care Provider] - 01/11/18
[2018-01-08] MEDS ORDERED: ONDANSETRON 4 MG TAB.RAPDIS PO ONE (01:55)
[2018-01-08 02:39] LABS: APPEARANCE,URINE CLOUDY; BILIRUBIN,URINE NEGATIVE (NEGATIVE); COLOR,URINE YELLOW; GLUCOSE, URINE NEGATIVE (NEGATIVE); KETONES,URINE NEGATIVE (NEGATIVE); LEUKOCYTE ESTERASE,URINE LARGE (NEGATIVE); NITRITE,URINE NEGATIVE (NEGATIVE); PROTEIN,URINE >=500 mg/dL (NEGATIVE); TRIPLE PHOSPHATE CRYSTAL,URINE MANY /HPF; URINE SPECIFIC GRAVITY 1.017; UROBILINOGEN,URINE NEGATIVE mg/dL (<2.0)
[2018-01-08] MEDS ORDERED: CEPHALEXIN 500 MG CAPSULE PO ONE (02:54)
[2018-01-08 04:33] VITALS: BP 111/60
== END 2018-01-08 04:37 | disposition home or self-care (01) ==
LOC: ER 01:35
DX: T83.9XXA Unspecified complication of genitourinary prosthetic device, implant and graft, initial encounter (principal); N39.0 Urinary tract infection, site not specified; X58.XXXA Exposure to other specified factors, initial encounter; I48.91 Unspecified atrial fibrillation; I50.9 Heart failure, unspecified; I25.2 Old myocardial infarction
CPT/HCPCS: 99285; 51702; 87086; 87088; 81001; 87186; A9270 ×2; S0119

== ENCOUNTER 2018-01-14 19:16 | Emergency (ER) | payer MEDICARE ==
[2018-01-14] MEDS ORDERED: RINGERS SOLUTION,LACTATED 1,000 ML IV ONE (20:26)
--- NOTE | 2018-01-14 20:27 | ER Document Report ---
ED General - General Chief Complaint: Abdominal Pain Stated Complaint: ABDOMINAL PAIN Time Seen by Provider: 01/14/18 19:37 Cannot obtain history due to: Dementia Notes: Patient is a 77-year-old male with a past medical history of dementia, hypertension, hypokalemia, chronic indwelling Anderson catheter who presents by EMS with concerns of abdominal pain. The patient was found to have a fever by EMS. The patient is unable to provide meaningful history secondary to his baseline dementia. He denies having a fever. Denies having abdominal pain. States he thinks he had some pain around his umbilicus region but it has likewise since resolved. TRAVEL OUTSIDE OF THE [place] IN LAST 30 DAYS: No - Related Data Allergies/Adverse Reactions: No Known Allergies Allergy (Verified 08/30/17 02:57) Past Medical History - General Information source: Patient, Emergency Med Personnel Cannot obtain history due to: Dementia - Social History Smoking Status: Unknown if Ever Smoked Frequency of alcohol use: None Drug Abuse: None Lives with: [facility] Family History: Reviewed & Not Pertinent, Hypertension Patient has suicidal ideation: No Patient has homicidal ideation: No - Past Medical History Cardiac Medical History: Reports: Hx Atrial Fibrillation, 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 Denies: Hx Cirrhosis, Hx Gastroesophageal Reflux Disease, Hx Hepatitis Musculoskeletal Medical History: Denies Hx Arthritis Psychiatric Medical History: Denies: Hx Bipolar Disorder, Hx Dementia, Hx Depression Infectious Medical History: Denies: Hx Hepatitis Past Surgical History: Reports: Hx Abdominal Surgery - perforated hernia, Hx Cardiac Surgery - STENT, Hx Coronary Stent - Immunizations Hx Diphtheria, Pertussis, Tetanus Vaccination: Yes Hx Pneumococcal Vaccination: 01/02/11 Review of Systems - Review of Systems Notes: Constitutional: Positive for fever. HENT: Negative for sore throat. Eyes: Negative for visual changes. Cardiovascular: Negative for chest pain. Respiratory: Negative for shortness of breath. Gastrointestinal: Positive for abdominal pain. Genitourinary: Negative for dysuria. Musculoskeletal: Negative for back pain. Skin: Negative for rash. Neurological: Negative for headaches, weakness or numbness. 10 point ROS negative except as marked above and in HPI. Physical Exam - Vital signs Vitals: Pulse Ox 96 01/14/18 19:33 Interpretation: Normal Notes: PHYSICAL EXAMINATION: GENERAL: Elderly, in no acute distress HEAD: Atraumatic, normocephalic. EYES: Pupils equal round and reactive to light, extraocular movements intact, sclera anicteric, conjunctiva are normal. ENT: nares patent, oropharynx clear without exudates. Moderately dry mucous membranes. NECK: Normal range of motion, supple without lymphadenopathy LUNGS: Breath sounds clear to auscultation bilaterally and equal. No wheezes rales or rhonchi. HEART: Regular rate and rhythm without murmurs ABDOMEN: Soft, nontender, normoactive bowel sounds. No guarding, no rebound. No masses appreciated. EXTREMITIES: Normal range of motion, no pitting or edema. No cyanosis. NEUROLOGICAL: No focal neurological deficits. Moves all extremities spontaneously and on command. PSYCH: Alert, oriented only to person SKIN: Warm, Dry, normal turgor, no rashes or lesions noted. Course - Re-evaluation Re-evalutation: 01/14/18 20:26 Patient presents with fever, complaints of lower abdominal pain which he now denies. Patient is quite demented, unable to provide meaningful history. On examination he has no focal abdominal tenderness and rebound or guarding. He does point to his suprapubic area when I asked him where he was hurting previously. Apparently he was recently diagnosed with a urinary tract infection , is apparently on antibiotics but does not know the name or how long he has been on them. He does also have a rattly cough on exam which she states is been there for the past 2-3 days. Will proceed with labs, chest x-ray, CT abdomen pelvis given the patient's poor historian status and a complaint of abdominal pain with associated fever, cultures and reassess the patient. 01/14/18 22:31 Patient laboratory's overall unremarkable. Urine cultures from the seventh to show Pseudomonas as well as Proteus both of which are resistant to the cephalexin that the patient is taking. He is however sensitive to levofloxacin. I did discuss with Dr. Barnes for admission. He believes the patient is safe for discharge home and has recommended the patient be placed on levofloxacin. The patient does continue to appear very well, is asking for something to eat given his overall well appearance, normal lactate, absence of any hypotension or tachycardia think it is reasonable for him to go on outpatient antibiotics as he is in a [facility] facility. - Vital Signs Vital signs: Temp Pulse Resp BP Pulse Ox 101.8 F H 23 H 106/82 96 01/14/18 19:35 01/14/18 22:01 01/15/18 00:01 01/14/18 23:25 - Laboratory Result Diagrams: 01/14/18 19:40 01/14/18 19:40 Laboratory results interpreted by me: 01/14/18 01/14/18 01/14/18 19:40 19:40 21:15 WBC 12.3 H RBC 3.82 L Hgb 11.8 L Hct 35.6 L Seg Neutrophils % 83.0 H Lymphocytes % 6.8 L Absolute Neutrophils 10.2 H Glucose 137 H Albumin 3.4 L Urine Protein >=500 H Urine Blood SMALL H Urine Urobilinogen 2.0 H Ur Leukocyte Esterase MODERATE H - Diagnostic Test Radiology reviewed: Image reviewed, Reports reviewed Radiology results interpreted by me: 01/14/18 22:34 Chest x-ray: No acute infiltrate or pneumothorax Discharge - Discharge Clinical Impression: Pyelonephritis Catheter-associated urinary tract infection Qualifiers: Indwelling urinary catheter type: indwelling urethral catheter Encounter type: initial encounter Qualified Code(s): T83.511A - Infection and inflammatory reaction due to indwelling urethral catheter, initial encounter Condition: Fair Disposition: HOME-SNF (ED ONLY) Additional Instructions: You have been diagnosed with a condition called pyelonephritis which is an infection involving your kidneys and bladder. You have been given a dose of antibiotics here in the emergency department to help begin to treat this infection. Your also being sent home on antibiotics. The current antibiotics were taking called cephalexin are not sufficient to treat this infection and should be discontinued. Please begin taking the levofloxacin as prescribed. Complete the course even if you feel better. Please return if you have persistent vomiting, pass out, have worsening pain, become unable to tolerate fluids, or have any other symptoms that are concerning to you. Please follow- up with your primary care physician in the next 24-48 hours. Prescriptions: Levofloxacin [Levaquin 500 mg Tablet] 500 mg PO DAILY #10 tablet Referrals: MARIO RYAN MD [Primary Care Provider] - Follow up tomorrow
[2018-01-14 20:35] LABS: ABSOLUTE EOSINOPHILS # (AUTO) 0.1 10^3/uL (0.0-0.6); ABSOLUTE LYMPHOCYTES (AUTO) 0.8 10^3/uL (0.5-4.7); ABSOLUTE MONOCYTES (AUTO) 1.1 10^3/uL (0.1-1.4); ABSOLUTE NEUT (AUTO) 10.2 10^3/uL (1.7-8.2); BASOPHILS % (AUTO) 0.3 % (0-2); EOSINOPHILS % (AUTO) 0.8 % (0-6); HEMATOCRIT 35.6 % (37.9-51.0); HEMOGLOBIN 11.8 g/dL (13.5-17.0); LYMPHOCYTES % (AUTO) 6.8 % (13-45); MEAN CORPUSCULAR HGB CONC 33.2 g/dL (32.0-36.0); MEAN CORPUSCULAR VOLUME 93 fl (80-97); MONOCYTES % (AUTO) 9.1 % (3-13); PLATELET COUNT 183 10^3/uL (150-450); RED BLOOD COUNT 3.82 10^6/uL (4.35-5.55); RED CELL DISTRIBUTION WIDTH 13.3 % (11.5-14.0); TOTAL CELLS COUNTED % (AUTO) 100 %; WHITE BLOOD COUNT 12.3 10^3/uL (4.0-10.5)
[2018-01-14 20:42] LABS: ALANINE AMINOTRANSFERASE 24 U/L (21-72); ALBUMIN 3.4 g/dL (3.5-5.0); ALKALINE PHOSPHATASE 96 U/L (38-126); ANION GAP 10 (5-19); ASPARTATE AMINO TRANSFERASE 19 U/L (17-59); BILIRUBIN,DIRECT 0.3 mg/dL (0.0-0.4); BILIRUBIN,TOTAL 0.5 mg/dL (0.2-1.3); BLOOD UREA NITROGEN 19 mg/dL (7-20); CALCIUM 8.8 mg/dL (8.4-10.2); CARBON DIOXIDE 27 mmol/L (22-30); CHLORIDE 104 mmol/L (98-107); GLUCOSE 137 mg/dL (75-110); LIPASE 44.4 U/L (23-300); POTASSIUM 4.2 mmol/L (3.6-5.0); SODIUM 140.8 mmol/L (137-145); TOTAL PROTEIN 6.9 g/dL (6.3-8.2)
[2018-01-14 21:35] LABS: APPEARANCE,URINE CLOUDY; BILIRUBIN,URINE NEGATIVE (NEGATIVE); COLOR,URINE YELLOW; GLUCOSE, URINE NEGATIVE (NEGATIVE); KETONES,URINE NEGATIVE (NEGATIVE); LEUKOCYTE ESTERASE,URINE MODERATE (NEGATIVE); NITRITE,URINE NEGATIVE (NEGATIVE); PROTEIN,URINE >=500 mg/dL (NEGATIVE); URINE SPECIFIC GRAVITY 1.026
--- NOTE | 2018-01-14 22:01 | RADIOLOGY REPORT (SQ) ---
CT ABDOMEN PELVIS WITH IV CONTRAST HISTORY: Fever. Abdominal pain. COMPARISON: 08/30/2017 TECHNIQUE: CT scan of the abdomen and pelvis. This exam was performed according to our departmental dose-optimization program, which includes automated exposure control, adjustment of the mA and/or kV according to patient size and/or use of iterative reconstruction technique. FINDINGS: Coronary atherosclerotic calcifications are seen. Cardiomegaly is present. No pleural or pericardial effusions. Small hiatal hernia. Liver, gallbladder, spleen, pancreas, and adrenal glands are unremarkable. Kidneys are unremarkable without hydronephrosis. Multiple cysts in both kidneys. Anderson catheter in the bladder. Prostatic calcifications are present. Large amount of stool in the colon with rectal wall thickening. Colonic diverticulosis without evidence of diverticulitis. No small bowel obstruction. Appendix is normal. Small umbilical hernia containing a loop of bowel without evidence of string lesion. 3.1 cm infrarenal abdominal aortic aneurysm. No acute osseous findings. IMPRESSION: 1. Large amount of stool in the colon with rectal wall thickening, suggesting chronic rectocolitis. Correlate clinically for constipation. 2. No small bowel obstruction. 3. 3.1 cm AAA Recommend follow-up every 3 years. Reference: J Vasc Surg 2009 Oct;50(4 Suppl):S2-49.
[2018-01-14] MEDS ORDERED: CEFEPIME 2 GM/D5W RTU 2 GM/50 ML RTUPB IV ONE (22:25)
--- NOTE | 2018-01-14 22:29 | RADIOLOGY REPORT (SQ) ---
XR CHEST 1 VIEW HISTORY: cough, fever. COMPARISON: 08/30/2017 FINDINGS/IMPRESSION: Query mild cardiomegaly. Lungs are clear. No pleural effusion or pneumothorax is seen. No acute osseous findings.
[2018-01-14] MEDS ORDERED: LEVOFLOXACIN 500 MG TABLET PO ONE (22:30)
[2018-01-15 00:15] VITALS: BP 106/82
== END 2018-01-15 00:10 ==
LOC: ER 19:16
DX: T83.511A Infection and inflammatory reaction due to indwelling urethral catheter, initial encounter (principal); N12 Tubulo-interstitial nephritis, not specified as acute or chronic; R10.9 Unspecified abdominal pain; R50.9 Fever, unspecified; X58.XXXA Exposure to other specified factors, initial encounter; F03.90 Unspecified dementia, unspecified severity, without behavioral disturbance, psychotic disturbance, mood disturbance, and anxiety; I10 Essential (primary) hypertension; E87.6 Hypokalemia
CPT/HCPCS: 99285; 96360; 96361; 36415; 87040; 87086; 83690; 85025; 87088; 80053; 81001; 87186; 83605; 71045; 74177; A9270; J7120

== ENCOUNTER 2018-01-15 01:34 | Emergency (ER) | payer MEDICARE ==
--- NOTE | 2018-01-15 02:25 | ER Document Report ---
HPI - HPI Pain Level: Denies Notes: Patient is a 77-year-old male who presents to the emergency department immediately after being discharged for complaint of possible bleeding around his Anderson catheter insertion site. Patient denies any complaints however staff reported to EMS that they thought it should be looked at because there was some bleeding. 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 Denies: Hx Cirrhosis, Hx Gastroesophageal Reflux Disease, Hx Hepatitis Musculoskeletal Medical History: Denies Hx Arthritis Psychiatric Medical History: Denies: Hx Bipolar Disorder, Hx Dementia, Hx Depression Infectious Medical History: Denies: Hx Hepatitis Past Surgical History: Reports: Hx Abdominal Surgery - perforated hernia, Hx Cardiac Surgery - STENT, Hx Coronary Stent - Immunizations Hx Diphtheria, Pertussis, Tetanus Vaccination: Yes Hx Pneumococcal Vaccination: 01/02/11 Vertical Provider Document - CONSTITUTIONAL Notes: PHYSICAL EXAMINATION: GENERAL: Well-appearing, well-nourished and in no acute distress. HEAD: Atraumatic, normocephalic. EYES: Pupils equal round extraocular movements intact, conjunctiva are normal. ENT: Nares patent NECK: Normal range of motion LUNGS: No respiratory distress Musculoskeletal: Normal range of motion Genitourinary: No bleeding noted at the urethral meatus. Catheter in place and draining appropriately. NEUROLOGICAL: Normal speech, normal gait. PSYCH: Normal mood, normal affect. SKIN: Warm, Dry, normal turgor, no rashes or lesions noted. - INFECTION CONTROL TRAVEL OUTSIDE OF THE [place] IN LAST 30 DAYS: No Course - Re-evaluation Re-evalutation: 01/15/18 02:20 There is no bleeding and noted around the Anderson catheter. Patient will be discharged home in stable condition. - Vital Signs Vital signs: Temp Pulse Resp BP Pulse Ox 98.5 F 91 18 124/54 L 95 01/15/18 01:35 01/15/18 01:35 01/15/18 01:35 01/15/18 01:35 01/15/18 01:35 Discharge - Discharge Clinical Impression: Anderson catheter present, Normal exam Condition: Stable Disposition: HOME, SELF-CARE Additional Instructions: The Anderson catheter is in place appropriately. There is no abnormality noted around the meatus of the penis. Occasionally there will be mild bleeding around the site of a catheter insertion due to the trauma of inserting it. There is no bleeding present on our assessment in the emergency department. A small amount of blood would be okay if it is noted. Please be sure to use a securement device to secure the catheter to patient's legs so that it does not accidentally become dislodged. Referrals: MARIO RYAN MD [Primary Care Provider] - Follow up as needed
[2018-01-15 03:05] VITALS: BP 123/55
== END 2018-01-15 03:03 | disposition home or self-care (01) ==
LOC: ER 01:34
DX: T83.9XXA Unspecified complication of genitourinary prosthetic device, implant and graft, initial encounter (principal); F17.200 Nicotine dependence, unspecified, uncomplicated; J44.9 Chronic obstructive pulmonary disease, unspecified
CPT/HCPCS: 99284

== ENCOUNTER 2018-02-25 15:36 | Inpatient (IN) | payer MEDICARE ==
--- NOTE | 2018-02-25 15:49 | ER Document Report ---
ED General - General Stated Complaint: CATHETER COMPLICATIONS Time Seen by Provider: 02/25/18 15:48 Notes: Patient is a 77-year-old male that presents to the emergency department for chief complaint of pus in Anderson catheter. Patient is a poor historian, family states that they noticed pus in his catheter, and he was complaining of pain while at the retirement today, so they asked to have him brought to the emergency department. Patient thinks he may have been having pain since yesterday, however he does have dementia and is not entirely sure. He currently points to his lower abdomen where the pain is. He apparently has had an indwelling catheter for some time, they are not sure the last time he was exchanged. Past Medical History: Hypertension, CAD, dementia, hyperlipidemia, urinary retention Past Surgical History: PCI with stenting Social History: Currently lives at a long-term facility, no alcohol or drug use. Family History: Reviewed and noncontributory for presenting illness Allergies: Reviewed, see documented allergy list. REVIEW OF SYSTEMS: Complete review of systems is not obtainable at this time secondary to the patient's dementia PHYSICAL EXAMINATION: Vital signs reviewed, nursing noted reviewed. GENERAL: Elderly male, appears uncomfortable HEAD: Atraumatic, normocephalic. EYES: Eyes appear normal, extraocular movements intact, sclera anicteric, conjunctiva are normal. ENT: nares patent, oropharynx clear without exudates. Moist mucous membranes. NECK: Normal range of motion, supple without lymphadenopathy LUNGS: Breath sounds clear to auscultation bilaterally and equal. No wheezes rales or rhonchi. HEART: Regular rate and rhythm without murmurs ABDOMEN: Soft, mildly distended, with tenderness to palpation in the suprapubic region, normoactive bowel sounds. No rebound or guarding Male genital: Patient has a Anderson catheter in place, but this caused erosion of the inferior aspect of the urethra, no active bleeding. EXTREMITIES: Bilateral lower extremities, have mild peripheral edema, nontender to palpate, no erythema. NEUROLOGICAL: Alert and oriented x1, to self. no focal neurological deficits. Moves all extremities spontaneously Motor and sensory grossly intact on exam. PSYCH: Normal mood, normal affect. SKIN: Warm, Dry, normal turgor, no rashes or lesions noted on exposed skin TRAVEL OUTSIDE OF THE [place] IN LAST 30 DAYS: No - Related Data Allergies/Adverse Reactions: No Known Allergies Allergy (Verified 08/30/17 02:57) Past Medical History - Social History Smoking Status: Never Smoker Family History: Reviewed & Not Pertinent, Hypertension - Past Medical History Cardiac Medical History: Reports: Hx Atrial Fibrillation, 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 Denies: Hx Cirrhosis, Hx Gastroesophageal Reflux Disease, Hx Hepatitis Musculoskeletal Medical History: Denies Hx Arthritis Psychiatric Medical History: Denies: Hx Bipolar Disorder, Hx Dementia, Hx Depression Infectious Medical History: Denies: Hx Hepatitis Past Surgical History: Reports: Hx Abdominal Surgery - perforated hernia, Hx Cardiac Surgery - STENT, Hx Coronary Stent - Immunizations Hx Diphtheria, Pertussis, Tetanus Vaccination: Yes Hx Pneumococcal Vaccination: 01/02/11 Physical Exam - Vital signs Vitals: Resp Pulse Ox 21 H 97 02/25/18 15:58 02/25/18 15:58 Course - Re-evaluation Re-evalutation: Patient seen and examined vital signs reviewed. Laboratory data and imaging were ordered as appropriate for the patient's presenting symptoms and complaint, with consideration of any critical or life threatening conditions that may be associated with their obtained history and exam as noted above. Patient was evaluated with bedside ultrasound, the demonstrated distended bladder, approximately 1200 mL's of urine noted in the bladder, and the Anderson balloon was noted to be in the patient's prostate. Patient was treated with IV fluid bolusing, and IV Rocephin, and we exchanged his Anderson catheter, patient had over a liter of urine, with pus and blood noted , pain was improved after this, but he is otherwise still complaining of some pain he was given Tylenol, and a small dose of morphine for his pain. Results were reviewed when available and demonstrated significant leukocytosis, urinalysis was concerning for urinary tract infection, he also had some renal impairment, his lactic acid was markedly elevated at greater than 5, concerning for severe sepsis from urinary tract infection. Patient was resuscitated with IV fluids. The patient was re-evaluated and was improved from a pain standpoint, heart rate was improving as well, Anderson catheter was functioning and draining Evaluation was most consistent with severe sepsis, secondary to urinary tract infection, leukocytosis, and acute kidney injury Results were discussed with the patient at this point after careful consideration I feel that that patient should be admitted to the hospital. This was discussed with the patient that it is in the best interest for their care to be admitted for further evaluation and management. Patient agreed with this plan of care. A call was placed to the admitted physician, Dr. Patel who graciously accepted the patient onto their service. *Note is created using voice recognition software and may contain spelling, syntax or grammatical errors. Laboratory 02/25/18 02/25/18 02/25/18 16:10 16:45 16:45 WBC 20.3 H RBC 4.50 Hgb 14.1 Hct 42.6 MCV 95 MCH 31.2 MCHC 33.0 RDW 13.9 Plt Count 192 Total Counted 100 Seg Neutrophils % Not Reportable Seg Neuts % (Manual) 87 H Lymphocytes % Not Reportable Lymphocytes % (Manual) 4 L Monocytes % Not Reportable Monocytes % (Manual) 9 Eosinophils % Not Reportable Eosinophils % (Manual) 0 Basophils % Not Reportable Basophils % (Manual) 0 Absolute Neutrophils Not Reportable Abs Neuts (Manual) 17.7 H Absolute Lymphocytes Not Reportable Abs Lymphs (Manual) 0.8 Absolute Monocytes Not Reportable Abs Monocytes (Manual) 1.8 H Absolute Eosinophils Not Reportable Absolute Eos (Manual) 0.0 Absolute Basophils Not Reportable Abs Basophils (Manual) 0.0 Toxic Granulation SLIGHT Platelet Comment ADEQUATE PT 13.9 INR 1.02 VBG pH VBG pCO2 VBG HCO3 VBG Base Excess Sodium Potassium Chloride Carbon Dioxide Anion Gap BUN Creatinine Est GFR ( Amer) Est GFR (Non-Af Amer) Glucose POC Glucose Lactic Acid Calcium Total Bilirubin Direct Bilirubin Neonat Total Bilirubin Neonat Direct Bilirubin Neonat Indirect Bili AST ALT Alkaline Phosphatase Total Protein Albumin Urine Color YELLOW Urine Appearance TURBID Urine pH 8.0 Ur Specific [place] 1.015 Urine Protein >=500 H Urine Glucose (UA) NEGATIVE Urine Ketones NEGATIVE Urine Blood NEGATIVE Urine Nitrite NEGATIVE Urine Bilirubin NEGATIVE Urine Urobilinogen NEGATIVE Ur Leukocyte Esterase MODERATE H Urine WBC (Auto) >182 Urine RBC (Auto) 24 Urine Bacteria (Auto) 1+ Urine WBC Clumps MANY U Non-Squamous Epis Auto 2 Triple Phos Cryst (Auto) MODERATE Urine Ascorbic Acid NEGATIVE 02/25/18 02/25/18 02/25/18 16:45 16:45 17:07 WBC RBC Hgb Hct MCV MCH MCHC RDW Plt Count Total Counted Seg Neutrophils % Seg Neuts % (Manual) Lymphocytes % Lymphocytes % (Manual) Monocytes % Monocytes % (Manual) Eosinophils % Eosinophils % (Manual) Basophils % Basophils % (Manual) Absolute Neutrophils Abs Neuts (Manual) Absolute Lymphocytes Abs Lymphs (Manual) Absolute Monocytes Abs Monocytes (Manual) Absolute Eosinophils Absolute Eos (Manual) Absolute Basophils Abs Basophils (Manual) Toxic Granulation Platelet Comment PT INR VBG pH VBG pCO2 VBG HCO3 VBG Base Excess Sodium Cancelled Potassium Cancelled Chloride Cancelled Carbon Dioxide Cancelled Anion Gap Cancelled BUN Cancelled Creatinine Cancelled Est GFR ( Amer) Cancelled Est GFR (Non-Af Amer) Cancelled Glucose Cancelled POC Glucose 142 H Lactic Acid 5.3 H Calcium Cancelled Total Bilirubin Cancelled Direct Bilirubin Cancelled Neonat Total Bilirubin Cancelled Neonat Direct Bilirubin Cancelled Neonat Indirect Bili Cancelled AST Cancelled ALT Cancelled Alkaline Phosphatase Cancelled Total Protein Cancelled Albumin Cancelled Urine Color Urine Appearance Urine pH Ur Specific [place] Urine Protein Urine Glucose (UA) Urine Ketones Urine Blood Urine Nitrite Urine Bilirubin Urine Urobilinogen Ur Leukocyte Esterase Urine WBC (Auto) Urine RBC (Auto) Urine Bacteria (Auto) Urine WBC Clumps U Non-Squamous Epis Auto Triple Phos Cryst (Auto) Urine Ascorbic Acid 02/25/18 02/25/18 02/25/18 17:45 17:45 20:54 WBC RBC Hgb Hct MCV MCH MCHC RDW Plt Count Total Counted Seg Neutrophils % Seg Neuts % (Manual) Lymphocytes % Lymphocytes % (Manual) Monocytes % Monocytes % (Manual) Eosinophils % Eosinophils % (Manual) Basophils % Basophils % (Manual) Absolute Neutrophils Abs Neuts (Manual) Absolute Lymphocytes Abs Lymphs (Manual) Absolute Monocytes Abs Monocytes (Manual) Absolute Eosinophils Absolute Eos (Manual) Absolute Basophils Abs Basophils (Manual) Toxic Granulation Platelet Comment PT INR VBG pH 7.31 VBG pCO2 52.1 VBG HCO3 25.8 VBG Base Excess -1.1 Sodium 142.2 Potassium 5.2 H Chloride 102 Carbon Dioxide 26 Anion Gap 14 BUN 49 H Creatinine 1.86 H Est GFR ( Amer) 43 L Est GFR (Non-Af Amer) 35 L Glucose 114 H POC Glucose Lactic Acid 3.1 H Calcium 9.8 Total Bilirubin 0.4 Direct Bilirubin 0.2 Neonat Total Bilirubin Not Reportable Neonat Direct Bilirubin Not Reportable Neonat Indirect Bili Not Reportable AST 34 ALT 28 Alkaline Phosphatase 95 Total Protein 7.0 Albumin 4.0 Urine Color Urine Appearance Urine pH Ur Specific [place] Urine Protein Urine Glucose (UA) Urine Ketones Urine Blood Urine Nitrite Urine Bilirubin Urine Urobilinogen Ur Leukocyte Esterase Urine WBC (Auto) Urine RBC (Auto) Urine Bacteria (Auto) Urine WBC Clumps U Non-Squamous Epis Auto Triple Phos Cryst (Auto) Urine Ascorbic Acid Abdomen/Pelvis CT 02/25/18 00:00 IMPRESSION: 1. Small umbilical hernia containing a small bowel loop with adjacent inflammatory changes, strangulation cannot be excluded. Please correlate with clinical exam. No CT evidence for bowel obstruction at this time. 2. Stool ball distending the rectum. 3. Bilateral perinephric stranding, nonspecific, may be seen with acute infection/ inflammation such as pyelonephritis. Please correlate with laboratory values/ urinalysis. 4. Colonic diverticulosis. Mild soft tissue stranding adjacent to the descending colon and sigmoid colon, may be secondary to the above findings versus early/mild acute diverticulitis. 5. Atherosclerotic disease. 3.4 x 3.4 cm infrarenal abdominal aortic aneurysm. 6. Left adrenal adenoma. 7. Small hiatal hernia. 8. Airspace opacity at the right lower lobe, may represent atelectasis or pneumonia. 9. Cardiomegaly. Coronary arteries calcifications. - Vital Signs Vital signs: Temp Pulse Resp BP Pulse Ox 99.2 F 101 H 20 94/58 L 98 02/25/18 22:10 02/25/18 22:10 02/25/18 22:10 02/25/18 22:10 02/25/18 22:10 - Laboratory Result Diagrams: 02/25/18 16:45 02/25/18 17:45 Laboratory results interpreted by me: 02/25/18 02/25/18 02/25/18 16:10 16:45 16:45 WBC 20.3 H Seg Neuts % (Manual) 87 H Lymphocytes % (Manual) 4 L Abs Neuts (Manual) 17.7 H Abs Monocytes (Manual) 1.8 H Potassium BUN Creatinine Est GFR ( Amer) Est GFR (Non-Af Amer) Glucose POC Glucose Lactic Acid 5.3 H Urine Protein >=500 H Ur Leukocyte Esterase MODERATE H 02/25/18 02/25/18 17:07 17:45 WBC Seg Neuts % (Manual) Lymphocytes % (Manual) Abs Neuts (Manual) Abs Monocytes (Manual) Potassium 5.2 H BUN 49 H Creatinine 1.86 H Est GFR ( Amer) 43 L Est GFR (Non-Af Amer) 35 L Glucose 114 H POC Glucose 142 H Lactic Acid Urine Protein Ur Leukocyte Esterase - EKG Interpretation by Me Additional EKG results interpreted by me: EKG demonstrates sinus tachycardia with a ventricular rate of 102 bpm, left axis deviation, normal intervals, there is borderline T wave inversion in leads I, aVL, and V5 and V6, this is compared to prior EKG from 08/30/2017, without significant change. Procedures - Additional Procedures IV insertion Additional Procedures: IV insertion - Ultrasound-guided 20G IV was placed in the left upper arm, performed by me. Critical Care Note - Critical Care Note Total time excluding time spent on procedures (mins): 40 Comments: Critical care time 40 minutes exclusive from separate billable procedures for a patient requiring complex medical decision making, and high potential for clinical deterioration. In a patient that presents with severe sepsis, secondary to urinary tract infection, requiring IV fluid resuscitation, and frequent monitoring. Time spent obtaining history from patient or surrogate, discussions with consultants, development of treatment plan with patient or surrogate, evaluation of patient's response to treatment, examination of patient , ordering and performing treatments and interventions, ordering and review of laboratory studies, re-evaluation of patient's condition, ordering and review of radiographic studies and review of old charts Discharge - Discharge Clinical Impression: Severe sepsis, Lactic acidosis, ОЛЕГ (acute kidney injury) UTI (urinary tract infection) Qualifiers: Urinary tract infection type: site unspecified Hematuria presence: with hematuria Qualified Code(s): N39.0 - Urinary tract infection, site not specified Leukocytosis Qualifiers: Leukocytosis type: unspecified Qualified Code(s): D72.829 - Elevated white blood cell count, unspecified Condition: Fair Admitting Provider: Hospitalist - DR. Patel Unit Admitted: [facility]
[2018-02-25 16:48] LABS: APPEARANCE,URINE TURBID; BILIRUBIN,URINE NEGATIVE (NEGATIVE); COLOR,URINE YELLOW; GLUCOSE, URINE NEGATIVE (NEGATIVE); KETONES,URINE NEGATIVE (NEGATIVE); LEUKOCYTE ESTERASE,URINE MODERATE (NEGATIVE); NITRITE,URINE NEGATIVE (NEGATIVE); PROTEIN,URINE >=500 mg/dL (NEGATIVE); TRIPLE PHOSPHATE CRYSTAL,URINE MODERATE /HPF; URINE SPECIFIC GRAVITY 1.015; UROBILINOGEN,URINE NEGATIVE mg/dL (<2.0)
[2018-02-25 17:04] LABS: HEMATOCRIT 42.6 % (37.9-51.0); HEMOGLOBIN 14.1 g/dL (13.5-17.0); MEAN CORPUSCULAR HEMOGLOBIN 31.2 pg (27.0-33.4); MEAN CORPUSCULAR VOLUME 95 fl (80-97); PLATELET COUNT 192 10^3/uL (150-450); RED CELL DISTRIBUTION WIDTH 13.9 % (11.5-14.0); WHITE BLOOD COUNT 20.3 10^3/uL (4.0-10.5)
[2018-02-25] MEDS ORDERED: CEFTRIAXONE INJ 1000 MG VIAL IV ONE (17:09)
[2018-02-25 17:12] LABS: INTERNATIONAL RATION (INR) 1.02; PROTHROMBIN TIME 13.9 SEC (11.4-15.4)
[2018-02-25] MEDS ORDERED: ACETAMINOPHEN 325 MG TABLET PO ONE (17:14)
[2018-02-25 17:23] LABS: ABSOLUTE LYMPHOCYTES# (MANUAL) 0.8 10^3/uL (0.5-4.7); ABSOLUTE MONOCYTES # (MANUAL) 1.8 10^3/uL (0.1-1.4); ABSOLUTE NEUTROPHILS# (MANUAL) 17.7 10^3/uL (1.7-8.2); BASOPHILS % (MANUAL) 0 % (0-2); EOSINOPHILS % (MANUAL) 0 % (0-6); LYMPHOCYTES % (MANUAL) 4 % (13-45); MONOCYTES % (MANUAL) 9 % (3-13); SEGMENTED NEUTROPHILS % (MAN) 87 % (42-78); TOTAL CELLS COUNTED 100
[2018-02-25 17:24] LABS: PLATELET COMMENT ADEQUATE; TOXIC GRANULATION SLIGHT
[2018-02-25 17:59] LABS: VENOUS BLOOD BASE EXCESS -1.1 mmol/L; VENOUS BLOOD HCO3 25.8 mmol/L (20-32); VENOUS BLOOD PCO2 52.1 mmHg (35-63); VENOUS BLOOD PH 7.31 (7.30-7.42)
[2018-02-25] MEDS ORDERED: MORPHINE SULFATE 10 MG/ML INJ IV ONE (18:02)
[2018-02-25] MEDS ORDERED: ONDANSETRON HCL INJ/PF 4 MG/2 ML SDV IV ONE (18:02)
[2018-02-25 18:17] LABS: ALANINE AMINOTRANSFERASE 28 U/L (21-72); ALKALINE PHOSPHATASE 95 U/L (38-126); ANION GAP 14 (5-19); ASPARTATE AMINO TRANSFERASE 34 U/L (17-59); BILIRUBIN,DIRECT 0.2 mg/dL (0.0-0.4); BILIRUBIN,TOTAL 0.4 mg/dL (0.2-1.3); BLOOD UREA NITROGEN 49 mg/dL (7-20); CALCIUM 9.8 mg/dL (8.4-10.2); CARBON DIOXIDE 26 mmol/L (22-30); CHLORIDE 102 mmol/L (98-107); GLUCOSE 114 mg/dL (75-110); POTASSIUM 5.2 mmol/L (3.6-5.0); SODIUM 142.2 mmol/L (137-145)
[2018-02-25] MEDS ORDERED: PHARMACY COMMUNICATION ORDER MC NR (18:45)
[2018-02-25] MEDS ORDERED: NORMAL SALINE 1000 ML 1,000 ML IV ONE (19:00)
[2018-02-25] MEDS ORDERED: PIPERACILLIN/TAZOBACTAM 3.375 GM VIAL IV PRN (19:03)
--- NOTE | 2018-02-25 19:03 | PDOC H&P ---
History of Present Illness Admission Date/PCP: 02/25/18 18:45 GRICELDA RYAN MD History of Present Illness: JESENIA LÓPEZ is a 77 year old male who lives in a facility has a history of chronic indwelling Anderson catheter and multiple medical comorbidities who was seen by his family at the facility today and they said that they noticed what looked like pus in his catheter. The patient only grimaced for me and did not talk to me so the history was all obtained from his family who was in the room. He felt that he did look right so they asked that he be sent to the emergency department. There is a report somewhere that he was complaining of some pain earlier in the day. Apparently took his Anderson out and placed a new one in the ER and got a liter of turbid urine out. When I went to see the patient, I noted his abdomen to be profoundly distended. 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, Myocardial Infarction Denies: DVT, Pulmonary Embolism Pulmonary Medical History: Reports: Chronic Obstructive Pulmonary Disease (COPD) Denies: Tuberculosis Neurological Medical History: Reports: Seizures - Last episode April 2016 GI Medical History: Reports: Diverticulitis, Hiatal Hernia Denies: Cirrhosis, Gastroesophageal Reflux Disease, Hepatitis Musculoskeltal Medical History: Denies: Arthritis Psychiatric Medical History: Denies: Bipolar Disorder, Dementia, Depression Past Surgical History Past Surgical History: Reports: Coronary Stent Social History Smoking Status: Former Smoker Frequency of Alcohol Use: None Hx Recreational Drug Use: No Drugs: None Hx Prescription Drug Abuse: No Family History Family History: Other - Unable to obtain Parental Family History Reviewed: No - Unable to obtain Children Family History Reviewed: No Sibling(s) Family History Reviewed.: No - Unable to obtain Medication/Allergy Home Medications: Albuterol Sulfate [Ventolin HFA MDI 18 GM] 2 puff PO Q4H PRN 02/12/17 Aspirin [Aspirin 325 mg Tablet] 325 mg PO DAILY 02/12/17 Atorvastatin Calcium [Lipitor 40 mg Tablet] 40 mg PO Q12 02/12/17 Docusate Sodium [Colace 100 mg Capsule] 100 mg PO BID 02/12/17 Ferrous Sulfate [Feosol 325 mg Tablet] 325 mg PO Q12 02/12/17 Finasteride [Proscar 5 mg Tablet] 5 mg PO DAILY 02/12/17 Fluticasone Propionate [Flonase Nasal [place] 50 Mcg/[place] 16 gm] 1 spray NASL DAILY 02/12/17 Furosemide [Lasix 20 mg Tablet] 20 mg PO DAILY 02/12/17 Phenobarbital [Phenobarbital 64.8 mg Tablet] 64.8 mg PO Q12 02/12/17 Quetiapine Fumarate [Seroquel 25 mg Tablet] 25 mg PO Q8 02/12/17 Tamsulosin HCl [Flomax 0.4 mg Cap.sr] 0.4 mg PO DAILY 02/12/17 Umeclidinium Brm/Vilanterol Tr [Anoro Ellipta 62.5-25 Mcg INH] 1 puff IH DAILY 02/12/17 Cyanocobalamin (Vitamin B-12) [Vitamin B-12 Inj 1000 Mcg/1 ml Vial] 1,000 mcg IM .MONTHLY 08/30/17 Donepezil HCl [Aricept 5 mg Tablet] 5 mg PO DAILY 08/30/17 Metoprolol Succinate [Toprol Xl 25 mg Tab.sr] 25 mg PO DAILY 30 Days #30 tab.sr.24h 09/04/17 Sennosides [Senna Laxative] 17.2 mg PO BID 30 Days #60 09/04/17 Sulfamethoxazole/Trimethoprim [Septra-Ds 800-160 mg Tablet] 1 tab PO BID 5 Days #9 tablet 09/04/17 Cephalexin Monohydrate [Keflex 500 mg Capsule] 500 mg PO Q6H 5 Days capsule Cephalexin Monohydrate [Keflex 500 mg Capsule] 500 mg PO BID 10 Days capsule Cephalexin Monohydrate [Keflex 500 mg Capsule] 500 mg PO QID #28 capsule Cephalexin Monohydrate [Keflex 500 mg Capsule] 500 mg PO Q6H 5 Days capsule 10/19 Levofloxacin [Levaquin 500 mg Tablet] 500 mg PO DAILY #10 tablet 01/14/18 Allergies/Adverse Reactions: No Known Allergies Allergy (Verified 08/30/17 02:57) Review of Systems ROS unobtainable: Due to mental status Physical Exam Vital Signs: Temp Pulse Resp BP Pulse Ox 98.4 F 106 H 15 108/60 94 02/25/18 16:00 02/25/18 16:00 02/25/18 18:17 02/25/18 18:17 02/25/18 18:17 General appearance: PRESENT: disheveled, morbidly obese, other - Moderate distress Head exam: PRESENT: atraumatic, normocephalic Eye exam: PRESENT: PERRLA. ABSENT: conjunctival injection, nystagmus, scleral icterus Ear exam: PRESENT: normal external ear exam Mouth exam: PRESENT: dry mucosa, neck supple Teeth exam: PRESENT: poor dentation Throat exam: ABSENT: post pharyngeal erythema Neck exam: ABSENT: JVD, lymphadenopathy, meningismus, tenderness, thyromegaly Respiratory exam: PRESENT: clear to auscultation maykel, unlabored. ABSENT: accessory muscle use, rales, rhonchi, tachypnea, wheezes Cardiovascular exam: PRESENT: RRR, +S1, +S2. ABSENT: diastolic murmur, systolic murmur Pulses: PRESENT: normal carotid pulses, normal radial pulses Vascular exam: PRESENT: normal capillary refill GI/Abdominal exam: PRESENT: distended, firm, tenderness, other - Tympanic, midline incisional hernias noted, bowel sounds were absent. ABSENT: guarding, soft Rectal exam: PRESENT: deferred Extremities exam: PRESENT: +1 edema. ABSENT: joint swelling Musculoskeletal exam: PRESENT: normal inspection. ABSENT: deformity Neurological exam: PRESENT: altered, other - Response to mildly noxious stimuli and opens his eyes spontaneously Skin exam: PRESENT: dry, warm Assessment & Plan - Diagnosis (1) Sepsis Qualifiers: Sepsis type: sepsis due to unspecified organism Qualified Code(s): A41.9 - Sepsis, unspecified organism Is this a current diagnosis for this admission?: Yes Plan: Due to UTI from chronic indwelling Anderson. Reviewed recent urine cultures, and based on those results, start him on Zosyn. We will give him some IV fluids. (2) Chronic indwelling Anderson catheter Is this a current diagnosis for this admission?: Yes Plan: UTI is associated with this, and it was present on admission. Treatment is as above (3) UTI (urinary tract infection) Qualifiers: Urinary tract infection type: site unspecified Hematuria presence: with hematuria Qualified Code(s): N39.0 - Urinary tract infection, site not specified; R31.9 - Hematuria, unspecified; R31.9 - Hematuria, unspecified Is this a current diagnosis for this admission?: Yes Plan: Associated with chronic indwelling Anderson, present on admission. Treatment is as above. Cultures pending. (4) Acute kidney injury Is this a current diagnosis for this admission?: Yes Plan: Associated with sepsis. Treating the sepsis I am giving him some IV fluids. We will repeat labs in the morning. Monitor urine output. (5) Adynamic ileus Is this a current diagnosis for this admission?: Yes Plan: Putting an NG tube to low intermittent suction. CT of the abdomen and pelvis is pending. - Time Time Spent: Greater than 70 Minutes - Inpatient Certification Based on my medical assessment, after consideration of the patient's comorbidities, presenting symptoms, or acuity I expect that the services needed warrant INPATIENT care.: Yes I certify that my determination is in accordance with my understanding of Medicare's requirements for reasonable and necessary INPATIENT services [42 CFR 412.3e].: Yes Medical Necessity: Need Close Monitoring Due to Risk of Patient Decompensation, Need For IV Fluids, Need For Continuous Telemetry Monitoring, Need for IV Antibiotics
[2018-02-25] MEDS ORDERED: PIPERACILLIN SODIUM/TAZOBACTAM 3.375 GM in NORMAL SALINE 100 ML IV ONE (19:15)
[2018-02-25] MEDS ORDERED: NA PHOS,M-B/NA PHOS,DI-BA (ADULT) 133 ML ENEMA PR ONE (20:12)
[2018-02-25] MEDS: DEXTROSE 5%-1/2 NORMAL SALINE 1,000 ML IV PRN (20:54)
--- NOTE | 2018-02-25 21:04 | RADIOLOGY REPORT (SQ) ---
EXAM DESCRIPTION: CT ABD/PELVIS NO ORAL OR IV COMPLETED DATE/TIME: 02/25/2018 6:54 pm REASON FOR STUDY: abdominal distension COMPARISON: CT abdomen and pelvis 01/14/2018. TECHNIQUE: CT scan of the abdomen and pelvis performed without intravenous or oral contrast. Images reviewed with lung, soft tissue, and bone windows. Reconstructed coronal and sagittal MPR images revi ewed. All images stored on PACS. All CT scanners at this facility use dose modulation, iterative reconstruction, and/or weight based d osing when appropriate to reduce radiation dose to as low as reasonably achievable (ALARA). [facility]: Dose Right [facility]: CareDose [facility]: Dose Right [facility]: Teradose 4D [facility]: [employer] RADIATION DOSE: CT Rad equipment meets quality standard of care and radiation dose reduction techniq ues were employed. CTDIvol: 26.9 mGy. DLP: 1532 mGy-cm.mGy. LIMITATIONS: There is motion artifact. FINDINGS: LOWER CHEST: Airspace opacity noted at the right lower lobe. No pleural effusion. The he art is enlarged. Coronary arteries calcifications are noted. There is a small hiatal hernia. NON-CONTRASTED LIVER, SPLEEN, ADRENALS: Evaluation limited by lack of IV contrast. There is a 2.8 x 1.8 cm hypodense left adrenal nodule, probably representing a small adenomas. PANCREAS: No peripancreatic inflammatory changes. GALLBLADDER: No identified stones by CT criteria. No inflammatory changes to suggest cholecystitis. RIGHT KIDNEY AND URETER: There is perinephric stranding. No significant calcifications. No hydron ephrosis or hydroureter. LEFT KIDNEY AND URETER: There is perinephric stranding. No significant calcifications. No hydron ephrosis or hydroureter. AORTA AND RETROPERITONEUM: Atherosclerotic calcifications at the abdominal aorta and its branches. 3 .4 x 3.4 cm fusiform aneurysm of the infrarenal abdominal aorta. No retroperitoneal masses. BOWEL AND PERITONEAL CAVITY: No dilated bowel loops to suggest obstruction. There is colonic diverti culosis. There is mild soft tissue stranding adjacent to the descending colon and sigmoid colon. Th ere is a stool ball distending the rectum. No free fluid or free air. APPENDIX: Normal. PELVIS, BLADDER, AND ABDOMINAL WALL:The urinary bladder is decompressed by a Anderson catheter. No pelv ic mass. No free fluid. There small fat containing bilateral inguinal hernias. There is a small um bilical hernia containing small bowel. There is adjacent soft tissue stranding. BONES: Degenerative changes are noted at the spine. IMPRESSION: 1. Small umbilical hernia containing a small bowel loop with adjacent inflammatory philip nges, strangulation cannot be excluded. Please correlate with clinical exam. No CT evidence for bow el obstruction at this time. 2. Stool ball distending the rectum. 3. Bilateral perinephric stranding, nonspecific, may be seen with acute infection/ inflammation such as pyelonephritis. Please correlate with laboratory values/ urinalysis. 4. Colonic diverticulosis. Mild soft tissue stranding adjacent to the descending colon and sigmoid c olon, may be secondary to the above findings versus early/mild acute diverticulitis. 5. Atherosclerotic disease. 3.4 x 3.4 cm infrarenal abdominal aortic aneurysm. 6. Left adrenal adenoma. 7. Small hiatal hernia. 8. Airspace opacity at the right lower lobe, may represent atelectasis or pneumonia. 9. Cardiomegaly. Coronary arteries calcifications. COMMENT: Quality ID # [id number]: Final reports with documentation of one or more dose reduction techniques (e.g., Automated exposure control, adjustment of the mA and/or kV according to patient size, use of iterative reconstruction technique) TECHNICAL DOCUMENTATION: JOB ID: [id number] [employer]- All Rights Reserved Reading location - IP/workstation name: [email or web address]
--- NOTE | 2018-02-25 21:42 | EKG REPORT ---
SEVERITY:- ABNORMAL ECG - SINUS TACHYCARDIA INFERIOR INFARCT, AGE INDETERMINATE LATERAL LEADS ARE ALSO INVOLVED : Confirmed by: Ijeoma Leung MD 25-Feb-2018 21:41:12
[2018-02-25] MEDS: NA PHOS,M-B/NA PHOS,DI-BA (ADULT) 133 ML ENEMA PR SCH (22:58)
[2018-02-25] MEDS: PHENOBARBITAL INJ 65 MG/ML VIAL IV SCH (22:58)
[2018-02-26] MEDS ORDERED: PIPERACILLIN SODIUM/TAZOBACTAM 3.375 GM in NORMAL SALINE 100 ML IV SCH ×2
[2018-02-26] MEDS: PIPERACILLIN SODIUM/TAZOBACTAM 3.375 GM in NORMAL SALINE 100 ML IV SCH ×4 (05:40→20:21)
[2018-02-26 06:33] LABS: HEMATOCRIT 33.8 % (37.9-51.0); MEAN CORPUSCULAR HEMOGLOBIN 31.4 pg (27.0-33.4); MEAN CORPUSCULAR HGB CONC 33.9 g/dL (32.0-36.0); MEAN CORPUSCULAR VOLUME 93 fl (80-97); PLATELET COUNT 180 10^3/uL (150-450); RED BLOOD COUNT 3.66 10^6/uL (4.35-5.55); RED CELL DISTRIBUTION WIDTH 14.1 % (11.5-14.0); WHITE BLOOD COUNT 18.7 10^3/uL (4.0-10.5)
[2018-02-26 06:37] LABS: ANION GAP 11 (5-19); BLOOD UREA NITROGEN 46 mg/dL (7-20); CARBON DIOXIDE 23 mmol/L (22-30); CHLORIDE 109 mmol/L (98-107); GLUCOSE 111 mg/dL (75-110); SODIUM 142.8 mmol/L (137-145)
[2018-02-26 06:46] LABS: HEMOGLOBIN 11.5 g/dL (13.5-17.0)
[2018-02-26 06:56] LABS: POTASSIUM 4.2 mmol/L (3.6-5.0)
[2018-02-26] MEDS: DEXTROSE 5%-1/2 NORMAL SALINE 1,000 ML IV PRN (11:13)
[2018-02-26] MEDS: PHENOBARBITAL INJ 65 MG/ML VIAL IV SCH ×2 (11:13→22:42)
[2018-02-26] MEDS: NA PHOS,M-B/NA PHOS,DI-BA (ADULT) 133 ML ENEMA PR SCH ×2 (11:14→22:42)
[2018-02-26] MEDS: ENOXAPARIN SODIUM INJ 30 MG/0.3 ML DISP.SYRIN SUBCUT SCH (11:14)
--- NOTE | 2018-02-26 11:49 | PDOC CONSULTATION ---
Consultation Consult Date: 02/26/18 Attending physician:: JONNY RIVAS Consult reason:: Possible strangulated umbilical History of Present Illness Admission Date/PCP: 02/25/18 18:45 GRICELDA RYAN MD History of Present Illness: JESENIA LÓPEZ is a 77 year old male Is brought to the emergency department via ground rescue because of failure to thrive at the residential, complaining of abdominal pain discolored urine with decreased output. Patient was evaluated emergency department and found to have evidence of urosepsis. Anderson catheter was changed. CT scan performed without oral contrast showed umbilical hernia, could not rule out strangulation. Surgery consulted. Patient was evaluated by Dr. Almanza earlier this morning. 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, Myocardial Infarction Denies: DVT, Pulmonary Embolism Pulmonary Medical History: Reports: Chronic Obstructive Pulmonary Disease (COPD) Denies: Tuberculosis Neurological Medical History: Reports: Seizures - Last episode April 2016 GI Medical History: Reports: Diverticulitis, Hiatal Hernia Denies: Cirrhosis, Gastroesophageal Reflux Disease, Hepatitis Musculoskeltal Medical History: Denies: Arthritis Psychiatric Medical History: Denies: Bipolar Disorder, Dementia, Depression Past Surgical History Past Surgical History: Reports: Coronary Stent Social History Smoking Status: Never Smoker Cigarettes Packs Per Day: 2.5 Number of Years Smokin Last Time Smoked: 03/19 Frequency of Alcohol Use: None Hx Recreational Drug Use: No Drugs: None Hx Prescription Drug Abuse: No Family History Family History: Reviewed & Not Pertinent, Hypertension Parental Family History Reviewed: Yes Children Family History Reviewed: Yes Sibling(s) Family History Reviewed.: Yes Medication/Allergy Home Medications: Albuterol Sulfate [Ventolin HFA MDI 18 GM] 2 puff PO Q4HP PRN 02/12/17 Aspirin [Aspirin 325 mg Tablet] 325 mg PO DAILY 02/12/17 Atorvastatin Calcium [Lipitor 40 mg Tablet] 40 mg PO Q12 02/12/17 Docusate Sodium [Colace 100 mg Capsule] 100 mg PO BID 02/12/17 Ferrous Sulfate [Feosol 325 mg Tablet] 325 mg PO Q12 02/12/17 Finasteride [Proscar 5 mg Tablet] 5 mg PO DAILY 02/12/17 Fluticasone Propionate [Flonase Nasal [place] 50 Mcg/[place] 16 gm] 1 spray NAREB DAILY 02/12/17 Furosemide [Lasix 20 mg Tablet] 20 mg PO DAILY 02/12/17 Phenobarbital [Phenobarbital 64.8 mg Tablet] 64.8 mg PO Q12 02/12/17 Quetiapine Fumarate [Seroquel 25 mg Tablet] 25 mg PO Q8 02/12/17 Tamsulosin HCl [Flomax 0.4 mg Cap.sr] 0.4 mg PO DAILY 02/12/17 Umeclidinium Brm/Vilanterol Tr [Anoro Ellipta 62.5-25 Mcg INH] 1 puff IH DAILY 02/12/17 Donepezil HCl [Aricept 5 mg Tablet] 5 mg PO DAILY 08/30/17 Metoprolol Succinate [Toprol Xl 25 mg Tab.sr] 25 mg PO DAILY 30 Days #30 tab.sr.24h 09/04/17 Sennosides [Senna Laxative] 17.2 mg PO BID 30 Days #60 09/04/17 Cyanocobalamin (Vitamin B-12) [Vitamin B-12 Inj 1000 Mcg/1 ml Vial] 1,000 mcg IM .MONTHLY 02/26/18 Allergies/Adverse Reactions: No Known Allergies Allergy (Verified 08/30/17 02:57) Physical Exam Vital Signs: Temp Pulse Resp BP Pulse Ox 98.6 F 97 16 114/53 L 93 02/26/18 07:50 02/26/18 07:50 02/26/18 07:50 02/26/18 07:50 02/26/18 07:50 Intake & Output 02/25/18 02/26/18 02/27/18 06:59 06:59 06:59 Intake Total 1100 1100 Output Total 625 Balance 475 1100 Weight 94.9 kg General appearance: PRESENT: no acute distress, other - Hard of hearing Teeth exam: PRESENT: dental caries Respiratory exam: PRESENT: rales GI/Abdominal exam: PRESENT: other - Long midline scar above and below the umbilicus. There is a reducible umbilical hernia with approximately 2cm defect. There is no abnormal overlying skin. The abdomen is soft peritoneal signs no Results Laboratory Results: 02/26/18 05:48 02/26/18 05:48 02/25/18 02/26/18 02/26/18 20:54 05:48 05:48 WBC 18.7 H RBC 3.66 L Hgb 11.5 L D Hct 33.8 L MCV 93 MCH 31.4 MCHC 33.9 RDW 14.1 H Plt Count 180 Sodium 142.8 Potassium 4.2 D Chloride 109 H Carbon Dioxide 23 Anion Gap 11 BUN 46 H Creatinine 1.40 H Est GFR ( Amer) 59 L Est GFR (Non-Af Amer) 49 L Glucose 111 H Lactic Acid 3.1 H Calcium 9.0 02/26/18 05:55 WBC RBC Hgb Hct MCV MCH MCHC RDW Plt Count Sodium Potassium Chloride Carbon Dioxide Anion Gap BUN Creatinine Est GFR ( Amer) Est GFR (Non-Af Amer) Glucose Lactic Acid 0.9 Calcium Impressions: Abdomen/Pelvis CT 02/25/18 00:00 IMPRESSION: 1. Small umbilical hernia containing a small bowel loop with adjacent inflammatory changes, strangulation cannot be excluded. Please correlate with clinical exam. No CT evidence for bowel obstruction at this time. 2. Stool ball distending the rectum. 3. Bilateral perinephric stranding, nonspecific, may be seen with acute infection/ inflammation such as pyelonephritis. Please correlate with laboratory values/ urinalysis. 4. Colonic diverticulosis. Mild soft tissue stranding adjacent to the descending colon and sigmoid colon, may be secondary to the above findings versus early/mild acute diverticulitis. 5. Atherosclerotic disease. 3.4 x 3.4 cm infrarenal abdominal aortic aneurysm. 6. Left adrenal adenoma. 7. Small hiatal hernia. 8. Airspace opacity at the right lower lobe, may represent atelectasis or pneumonia. 9. Cardiomegaly. Coronary arteries calcifications. Assessment & Plan - Diagnosis (1) Umbilical hernia Is this a current diagnosis for this admission?: Yes Plan: Impression: Chronic umbilical hernia with no evidence of incarceration, strangulation, threatened skin etc. Discussion: 1. I reviewed the CT scan of the abdomen and pelvis. This is a suboptimal study due to absence of oral contrast. There is minimal eddie-hernia soft tissue stranding, but on physical examination the hernia is reducible. There are no peritoneal signs no rigidity. No clinical indication to repair this hernia. 2. Cough; reconsult surgery if need be. (2) Acute kidney injury Is this a current diagnosis for this admission?: Yes (4) UTI (urinary tract infection) Qualifiers: Urinary tract infection type: site unspecified Hematuria presence: with hematuria Qualified Code(s): N39.0 - Urinary tract infection, site not specified; R31.9 - Hematuria, unspecified; R31.9 - Hematuria, unspecified Is this a current diagnosis for this admission?: Yes
--- NOTE | 2018-02-26 14:29 | PDOC PROGRESS REPORT ---
Subjective Progress Note for:: 02/26/18 Subjective:: Mr. Anaya is doing a lot better today. He is interactive and answers questions today. He is smiling and laughing some as well. He said his belly feels a lot better and is not hurting him anymore. Reason For Visit: SEPSIS,ACUTE KIDNEY INJURY Physical Exam Vital Signs: Temp Pulse Resp BP Pulse Ox 98.1 F 95 17 114/57 L 98 02/26/18 11:46 02/26/18 11:46 02/26/18 11:46 02/26/18 11:46 02/26/18 11:46 Intake & Output 02/25/18 02/26/18 02/27/18 06:59 06:59 06:59 Intake Total 1100 1100 Output Total 625 425 Balance 475 675 Weight 94.9 kg General appearance: PRESENT: no acute distress, cooperative, disheveled, morbidly obese Respiratory exam: PRESENT: clear to auscultation maykel, symmetrical, unlabored. ABSENT: rales, rhonchi, tachypnea, wheezes Cardiovascular exam: PRESENT: RRR, +S1, +S2. ABSENT: diastolic murmur, systolic murmur Vascular exam: PRESENT: normal capillary refill GI/Abdominal exam: PRESENT: normal bowel sounds, soft. ABSENT: distended, guarding, rebound, tenderness Extremities exam: PRESENT: pedal edema. ABSENT: joint swelling Musculoskeletal exam: PRESENT: normal inspection. ABSENT: deformity Neurological exam: PRESENT: alert, awake, oriented to person, oriented to place Psychiatric exam: PRESENT: appropriate affect, normal mood Skin exam: PRESENT: dry, warm Results Laboratory Results: 02/26/18 05:48 02/26/18 05:48 02/25/18 02/26/18 02/26/18 20:54 05:48 05:48 WBC 18.7 H RBC 3.66 L Hgb 11.5 L D Hct 33.8 L MCV 93 MCH 31.4 MCHC 33.9 RDW 14.1 H Plt Count 180 Sodium 142.8 Potassium 4.2 D Chloride 109 H Carbon Dioxide 23 Anion Gap 11 BUN 46 H Creatinine 1.40 H Est GFR ( Amer) 59 L Est GFR (Non-Af Amer) 49 L Glucose 111 H Lactic Acid 3.1 H Calcium 9.0 Magnesium 02/26/18 02/26/18 05:55 11:42 WBC RBC Hgb Hct MCV MCH MCHC RDW Plt Count Sodium Potassium Chloride Carbon Dioxide Anion Gap BUN Creatinine Est GFR ( Amer) Est GFR (Non-Af Amer) Glucose Lactic Acid 0.9 Calcium Magnesium 2.2 Impressions: Abdomen/Pelvis CT 02/25/18 00:00 IMPRESSION: 1. Small umbilical hernia containing a small bowel loop with adjacent inflammatory changes, strangulation cannot be excluded. Please correlate with clinical exam. No CT evidence for bowel obstruction at this time. 2. Stool ball distending the rectum. 3. Bilateral perinephric stranding, nonspecific, may be seen with acute infection/ inflammation such as pyelonephritis. Please correlate with laboratory values/ urinalysis. 4. Colonic diverticulosis. Mild soft tissue stranding adjacent to the descending colon and sigmoid colon, may be secondary to the above findings versus early/mild acute diverticulitis. 5. Atherosclerotic disease. 3.4 x 3.4 cm infrarenal abdominal aortic aneurysm. 6. Left adrenal adenoma. 7. Small hiatal hernia. 8. Airspace opacity at the right lower lobe, may represent atelectasis or pneumonia. 9. Cardiomegaly. Coronary arteries calcifications. Assessment & Plan - Diagnosis (1) Sepsis Qualifiers: Sepsis type: sepsis due to unspecified organism Qualified Code(s): A41.9 - Sepsis, unspecified organism Is this a current diagnosis for this admission?: Yes Plan: Improving on Zosyn. Continuing fluid supplementation. Lactic acid level has normalized. (2) Chronic indwelling Anderson catheter Is this a current diagnosis for this admission?: Yes Plan: UTI is associated with this, and it was present on admission. Treatment is as above (3) UTI (urinary tract infection) Qualifiers: Urinary tract infection type: site unspecified Hematuria presence: with hematuria Qualified Code(s): N39.0 - Urinary tract infection, site not specified; R31.9 - Hematuria, unspecified; R31.9 - Hematuria, unspecified Is this a current diagnosis for this admission?: Yes Plan: Associated with chronic indwelling Anderson, present on admission. Treatment is as above. Cultures pending. (4) Acute kidney injury Is this a current diagnosis for this admission?: Yes Plan: Improving with IV fluids. (5) Adynamic ileus Is this a current diagnosis for this admission?: Yes Plan: Resolved - Time Time Spent with patient: 35 or more minutes
[2018-02-27] MEDS: NA PHOS,M-B/NA PHOS,DI-BA (ADULT) 133 ML ENEMA PR SCH ×3 (00:27→22:48)
[2018-02-27] MEDS: PIPERACILLIN SODIUM/TAZOBACTAM 3.375 GM in NORMAL SALINE 100 ML IV SCH ×3 (02:04→16:24)
[2018-02-27 06:18] LABS: HEMATOCRIT 29.2 % (37.9-51.0); MEAN CORPUSCULAR HEMOGLOBIN 31.9 pg (27.0-33.4); MEAN CORPUSCULAR HGB CONC 34.2 g/dL (32.0-36.0); MEAN CORPUSCULAR VOLUME 93 fl (80-97); PLATELET COUNT 131 10^3/uL (150-450); RED BLOOD COUNT 3.13 10^6/uL (4.35-5.55); RED CELL DISTRIBUTION WIDTH 14.2 % (11.5-14.0); WHITE BLOOD COUNT 10.6 10^3/uL (4.0-10.5)
[2018-02-27 06:37] LABS: ANION GAP 9 (5-19); BLOOD UREA NITROGEN 31 mg/dL (7-20); CALCIUM 8.5 mg/dL (8.4-10.2); CARBON DIOXIDE 27 mmol/L (22-30); CHLORIDE 108 mmol/L (98-107); GLUCOSE 96 mg/dL (75-110); POTASSIUM 3.8 mmol/L (3.6-5.0); SODIUM 143.5 mmol/L (137-145)
[2018-02-27] MEDS: ACETAMINOPHEN 325 MG TABLET PO PRN (08:50)
[2018-02-27] MEDS: DEXTROSE 5%-1/2 NORMAL SALINE 1,000 ML IV PRN (11:26)
[2018-02-27] MEDS: PHENOBARBITAL INJ 65 MG/ML VIAL IV SCH ×2 (11:26→22:47)
[2018-02-27] MEDS: ENOXAPARIN SODIUM INJ 30 MG/0.3 ML DISP.SYRIN SUBCUT SCH (11:27)
--- NOTE | 2018-02-27 13:03 | PDOC PROGRESS REPORT ---
Subjective Progress Note for:: 02/27/18 Subjective:: patient was admitted with abdomwhich he claims is better today. He is awake and alert though still confused but according to the nursing staff he has had 2 bowel movements and is tolerating his diet. Reason For Visit: SEPSIS,ACUTE KIDNEY INJURY patient was admitted with abdomwhich he claims is better today. He is awake and alert though still confused but according to the nursing staff he has had 2 bowel movements and is tolerating his diet. Physical Exam Vital Signs: Temp Pulse Resp BP Pulse Ox 98.3 F 88 18 116/47 L 97 02/27/18 11:17 02/27/18 11:17 02/27/18 11:17 02/27/18 11:17 02/27/18 11:17 Intake & Output 02/26/18 02/27/18 02/28/18 06:59 06:59 06:59 Intake Total 1100 2757 Output Total 625 1350 Balance 475 1407 Weight 94.9 kg 97.3 kg General appearance: PRESENT: no acute distress, morbidly obese, well-developed, well-nourished Head exam: PRESENT: atraumatic, normocephalic Eye exam: PRESENT: conjunctiva pink, EOMI, PERRLA. ABSENT: scleral icterus Mouth exam: PRESENT: dry mucosa, tongue midline Neck exam: ABSENT: carotid bruit, JVD, lymphadenopathy, thyromegaly Respiratory exam: PRESENT: clear to auscultation maykel. ABSENT: rales, rhonchi, wheezes Cardiovascular exam: PRESENT: RRR. ABSENT: diastolic murmur, rubs, systolic murmur Pulses: PRESENT: normal dorsalis pedis pul Vascular exam: PRESENT: normal capillary refill GI/Abdominal exam: PRESENT: diminished bowel sounds, distended, tenderness - LLQ. ABSENT: guarding, mass, organolmegaly Rectal exam: PRESENT: deferred Extremities exam: PRESENT: full ROM. ABSENT: calf tenderness, clubbing, pedal edema Neurological exam: PRESENT: alert, awake, oriented to place, oriented to situation. ABSENT: motor sensory deficit Psychiatric exam: PRESENT: appropriate affect. ABSENT: homicidal ideation, suicidal ideation Skin exam: PRESENT: dry, intact, warm. ABSENT: cyanosis, rash Results Laboratory Results: 02/27/18 06:01 02/27/18 06:01 02/27/18 02/27/18 06:01 06:01 WBC 10.6 H RBC 3.13 L Hgb 10.0 L Hct 29.2 L MCV 93 MCH 31.9 MCHC 34.2 RDW 14.2 H Plt Count 131 L Sodium 143.5 Potassium 3.8 Chloride 108 H Carbon Dioxide 27 Anion Gap 9 BUN 31 H Creatinine 1.13 Est GFR ( Amer) > 60 Est GFR (Non-Af Amer) > 60 Glucose 96 Calcium 8.5 Impressions: Abdomen/Pelvis CT 02/25/18 00:00 IMPRESSION: 1. Small umbilical hernia containing a small bowel loop with adjacent inflammatory changes, strangulation cannot be excluded. Please correlate with clinical exam. No CT evidence for bowel obstruction at this time. 2. Stool ball distending the rectum. 3. Bilateral perinephric stranding, nonspecific, may be seen with acute infection/ inflammation such as pyelonephritis. Please correlate with laboratory values/ urinalysis. 4. Colonic diverticulosis. Mild soft tissue stranding adjacent to the descending colon and sigmoid colon, may be secondary to the above findings versus early/mild acute diverticulitis. 5. Atherosclerotic disease. 3.4 x 3.4 cm infrarenal abdominal aortic aneurysm. 6. Left adrenal adenoma. 7. Small hiatal hernia. 8. Airspace opacity at the right lower lobe, may represent atelectasis or pneumonia. 9. Cardiomegaly. Coronary arteries calcifications. Assessment & Plan - Time Time Spent with patient: 15-24 minutes Medications reviewed and adjusted accordingly: Yes Anticipated discharge: Home Within: within 72 hours - Inpatient Certification Based on my medical assessment, after consideration of the patient's comorbidities, presenting symptoms, or acuity I expect that the services needed warrant INPATIENT care.: Yes Medical Necessity: Need For IV Fluids, Need for IV Antibiotics, Risk of Complication if Not Cared For in Hospital - Plan Summary Plan Summary: Sepsis still on Zosyn will de-escalate as appropriate 2. 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 We will follow-up with identification 4. Adynamic ileus patient has already been seen by surgery and no acute interventions planned. Patient is not a good candidate for any surgical intervention at this time #[address] did show mild soft tissue stranding adjacent to the descending colon and sigmoid colon. Patient does have some mild left lower quadrant tenderness. 6. Small umbilical hernia which has been evaluated by general surgery with no interventions planned. 7. Acute kidney injury likely secondary to acute tubular necrosis kidney function is improving
[2018-02-27] MEDS: AMOXICILLIN TR/POT CLAVULANATE 500-125 MG TAB PO SCH (20:55)
[2018-02-28] MEDS: DEXTROSE 5%-1/2 NORMAL SALINE 1,000 ML IV PRN ×2 (05:00→16:37)
[2018-02-28] MEDS: AMOXICILLIN TR/POT CLAVULANATE 500-125 MG TAB PO SCH ×3 (05:00→22:37)
[2018-02-28 05:47] LABS: HEMATOCRIT 28.2 % (37.9-51.0); HEMOGLOBIN 9.8 g/dL (13.5-17.0); MEAN CORPUSCULAR HEMOGLOBIN 31.9 pg (27.0-33.4); MEAN CORPUSCULAR HGB CONC 34.5 g/dL (32.0-36.0); MEAN CORPUSCULAR VOLUME 92 fl (80-97); PLATELET COUNT 137 10^3/uL (150-450); RED BLOOD COUNT 3.06 10^6/uL (4.35-5.55); RED CELL DISTRIBUTION WIDTH 13.8 % (11.5-14.0); WHITE BLOOD COUNT 8.2 10^3/uL (4.0-10.5)
[2018-02-28 06:08] LABS: ANION GAP 10 (5-19); BLOOD UREA NITROGEN 17 mg/dL (7-20); CALCIUM 8.5 mg/dL (8.4-10.2); CARBON DIOXIDE 26 mmol/L (22-30); CHLORIDE 107 mmol/L (98-107); GLUCOSE 96 mg/dL (75-110); POTASSIUM 3.7 mmol/L (3.6-5.0); SODIUM 142.5 mmol/L (137-145)
[2018-02-28] MEDS: PHENOBARBITAL INJ 65 MG/ML VIAL IV SCH ×3 (09:43→22:37)
[2018-02-28] MEDS: NA PHOS,M-B/NA PHOS,DI-BA (ADULT) 133 ML ENEMA PR SCH ×2 (09:43→22:37)
[2018-02-28] MEDS: ENOXAPARIN SODIUM INJ 40 MG/0.4 ML DISP.SYRIN SUBCUT SCH (09:46)
--- NOTE | 2018-02-28 15:17 | PDOC PROGRESS REPORT ---
Subjective Progress Note for:: 02/28/18 Subjective:: patient was admitted with abdominal pain. He is awake and alert and appears more interactive today Reason For Visit: SEPSIS,ACUTE KIDNEY INJURY Physical Exam Vital Signs: Temp Pulse Resp BP Pulse Ox 99.8 F 93 22 H 114/66 93 02/28/18 11:24 02/28/18 11:24 02/28/18 11:24 02/28/18 11:24 02/28/18 11:24 Intake & Output 02/27/18 02/28/18 03/01/18 06:59 06:59 06:59 Intake Total 2757 1790 591 Output Total 1350 1600 400 Balance 1407 190 191 Weight 97.3 kg 99.8 kg General appearance: PRESENT: no acute distress, morbidly obese, well-developed, well-nourished Head exam: PRESENT: atraumatic, normocephalic Eye exam: PRESENT: conjunctiva pink, EOMI, PERRLA. ABSENT: scleral icterus Ear exam: PRESENT: normal external ear exam, TM's normal bilaterally Mouth exam: PRESENT: dry mucosa, tongue midline Neck exam: ABSENT: carotid bruit, JVD, lymphadenopathy, thyromegaly Respiratory exam: PRESENT: clear to auscultation maykel. ABSENT: rales, rhonchi, wheezes Cardiovascular exam: PRESENT: RRR, +S1, +S2. ABSENT: diastolic murmur, rubs, systolic murmur Pulses: PRESENT: normal dorsalis pedis pul Vascular exam: PRESENT: normal capillary refill GI/Abdominal exam: PRESENT: distended, hyperactive bowel sounds. ABSENT: guarding, mass, organolmegaly, rebound, tenderness Rectal exam: PRESENT: deferred Extremities exam: PRESENT: full ROM. ABSENT: calf tenderness, clubbing, pedal edema Neurological exam: PRESENT: alert, awake, oriented to place, oriented to situation, CN II-XII grossly intact. ABSENT: motor sensory deficit Psychiatric exam: PRESENT: appropriate affect, normal mood. ABSENT: homicidal ideation, suicidal ideation Skin exam: PRESENT: dry, intact, warm. ABSENT: cyanosis, rash Results Laboratory Results: 02/28/18 05:18 02/28/18 05:18 02/28/18 02/28/18 05:18 05:18 WBC 8.2 RBC 3.06 L Hgb 9.8 L Hct 28.2 L MCV 92 MCH 31.9 MCHC 34.5 RDW 13.8 Plt Count 137 L Sodium 142.5 Potassium 3.7 Chloride 107 Carbon Dioxide 26 Anion Gap 10 BUN 17 Creatinine 0.86 Est GFR ( Amer) > 60 Est GFR (Non-Af Amer) > 60 Glucose 96 Calcium 8.5 Impressions: Abdomen/Pelvis CT 02/25/18 00:00 IMPRESSION: 1. Small umbilical hernia containing a small bowel loop with adjacent inflammatory changes, strangulation cannot be excluded. Please correlate with clinical exam. No CT evidence for bowel obstruction at this time. 2. Stool ball distending the rectum. 3. Bilateral perinephric stranding, nonspecific, may be seen with acute infection/ inflammation such as pyelonephritis. Please correlate with laboratory values/ urinalysis. 4. Colonic diverticulosis. Mild soft tissue stranding adjacent to the descending colon and sigmoid colon, may be secondary to the above findings versus early/mild acute diverticulitis. 5. Atherosclerotic disease. 3.4 x 3.4 cm infrarenal abdominal aortic aneurysm. 6. Left adrenal adenoma. 7. Small hiatal hernia. 8. Airspace opacity at the right lower lobe, may represent atelectasis or pneumonia. 9. Cardiomegaly. Coronary arteries calcifications. Assessment & Plan - Time Time Spent with patient: 15-24 minutes Anticipated discharge: Acute Rehab Within: within 72 hours - Inpatient Certification Based on my medical assessment, after consideration of the patient's comorbidities, presenting symptoms, or acuity I expect that the services needed warrant INPATIENT care.: Yes Medical Necessity: Need Close Monitoring Due to Risk of Patient Decompensation, Risk of Complication if Not Cared For in Hospital - Plan Summary Plan Summary: Sepsis - esolved. Continue Augmentin 2. 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 #4 Adynamic Ileus no acute interventions planned. Patient is not a good candidate for any surgical intervention at this time #[address] did show mild soft tissue stranding adjacent to the descending colon and sigmoid colon. Cont Augmentin 6. Small umbilical hernia which has been evaluated by general surgery with no interventions planned. 7. Acute kidney injury likely secondary to acute tubular necrosis kidney function is improved
[2018-03-01] MEDS: ACETAMINOPHEN 325 MG TABLET PO PRN (03:41)
[2018-03-01] MEDS: AMOXICILLIN TR/POT CLAVULANATE 500-125 MG TAB PO SCH ×3 (07:26→21:20)
[2018-03-01] MEDS: NA PHOS,M-B/NA PHOS,DI-BA (ADULT) 133 ML ENEMA PR SCH (09:20)
[2018-03-01] MEDS: ENOXAPARIN SODIUM INJ 40 MG/0.4 ML DISP.SYRIN SUBCUT SCH (09:21)
[2018-03-01] MEDS: PHENOBARBITAL INJ 65 MG/ML VIAL IV SCH ×2 (09:26→21:20)
--- NOTE | 2018-03-01 09:29 | PDOC PROGRESS REPORT ---
Subjective Progress Note for:: 03/01/18 Subjective:: patient was admitted with abdominal pain. He is eating breakfast at the time of my exam today. His belly is still sore according to him. He has been having bowel movements in fact 3 yesterday despite refusing his antibiotics. There is no nausea vomiting. He was seen by PT with encouragement to get out of bed. Reason For Visit: SEPSIS,ACUTE KIDNEY INJURY Physical Exam Vital Signs: Temp Pulse Resp BP Pulse Ox 100.3 F 89 16 129/69 H 91 L 03/01/18 03:19 03/01/18 07:00 03/01/18 03:19 03/01/18 03:19 03/01/18 03:19 Intake & Output 02/28/18 03/01/18 03/02/18 06:59 06:59 06:59 Intake Total 1790 1699 1000 Output Total 1600 2800 Balance 190 -1101 1000 Weight 99.8 kg 97.5 kg General appearance: PRESENT: no acute distress, obese, well-developed, well- nourished Head exam: PRESENT: atraumatic, normocephalic Eye exam: PRESENT: conjunctiva pink, EOMI, PERRLA. ABSENT: scleral icterus Ear exam: PRESENT: normal external ear exam Mouth exam: PRESENT: moist, tongue midline Neck exam: ABSENT: carotid bruit, JVD, lymphadenopathy, thyromegaly Respiratory exam: PRESENT: clear to auscultation maykel. ABSENT: rales, rhonchi, wheezes Cardiovascular exam: PRESENT: RRR. ABSENT: diastolic murmur, rubs, systolic murmur Pulses: PRESENT: normal dorsalis pedis pul Vascular exam: PRESENT: normal capillary refill GI/Abdominal exam: PRESENT: distended, hyperactive bowel sounds, tenderness - Left lower quadrant. ABSENT: guarding, mass, organolmegaly, rebound Rectal exam: PRESENT: deferred Extremities exam: PRESENT: full ROM. ABSENT: calf tenderness, clubbing, pedal edema Neurological exam: PRESENT: alert, awake, oriented to person, oriented to place , oriented to situation, CN II-XII grossly intact. ABSENT: motor sensory deficit Psychiatric exam: PRESENT: appropriate affect, normal mood. ABSENT: homicidal ideation, suicidal ideation Skin exam: PRESENT: dry, intact, warm. ABSENT: cyanosis, rash Results Laboratory Results: 02/28/18 05:18 02/28/18 05:18 Impressions: Abdomen/Pelvis CT 02/25/18 00:00 IMPRESSION: 1. Small umbilical hernia containing a small bowel loop with adjacent inflammatory changes, strangulation cannot be excluded. Please correlate with clinical exam. No CT evidence for bowel obstruction at this time. 2. Stool ball distending the rectum. 3. Bilateral perinephric stranding, nonspecific, may be seen with acute infection/ inflammation such as pyelonephritis. Please correlate with laboratory values/ urinalysis. 4. Colonic diverticulosis. Mild soft tissue stranding adjacent to the descending colon and sigmoid colon, may be secondary to the above findings versus early/mild acute diverticulitis. 5. Atherosclerotic disease. 3.4 x 3.4 cm infrarenal abdominal aortic aneurysm. 6. Left adrenal adenoma. 7. Small hiatal hernia. 8. Airspace opacity at the right lower lobe, may represent atelectasis or pneumonia. 9. Cardiomegaly. Coronary arteries calcifications. Assessment & Plan - Time Time Spent with patient: 25-34 minutes Medications reviewed and adjusted accordingly: Yes Anticipated discharge: Home Within: within 72 hours - Inpatient Certification Based on my medical assessment, after consideration of the patient's comorbidities, presenting symptoms, or acuity I expect that the services needed warrant INPATIENT care.: Yes Medical Necessity: Need Close Monitoring Due to Risk of Patient Decompensation, Risk of Complication if Not Cared For in Hospital - Plan Summary Plan Summary: 1. Sepsis - resolved. Continue Augmentin Day 3. Was on Zosyn for 2 days prior to this 2. 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 We will continue with Augmentin #4 Adynamic Ileus no acute interventions planned. Patient is not a good candidate for any surgical intervention at this time DC enema #[address] did show mild soft tissue stranding adjacent to the descending colon and sigmoid colon. Cont Augmentin 6. Small umbilical hernia which has been evaluated by general surgery with no interventions planned. 7. Acute kidney injury likely secondary to acute tubular necrosis kidney function is improved 8. Obesity which will complicate recovery 9. Thrombocytopenia likely secondary to acute infection. Will follow
[2018-03-01] MEDS: PSYLLIUM SEED-SF 5.85 GM PACKET PO SCH (10:15)
[2018-03-01] MEDS: DOCUSATE SODIUM 100 MG/10 ML UDC PO SCH ×2 (10:15→17:34)
[2018-03-02] MEDS: ACETAMINOPHEN 325 MG TABLET PO PRN (00:33)
[2018-03-02] MEDS: AMOXICILLIN TR/POT CLAVULANATE 500-125 MG TAB PO SCH ×3 (05:10→21:17)
[2018-03-02] MEDS: DOCUSATE SODIUM 100 MG/10 ML UDC PO SCH ×2 (09:43→17:28)
[2018-03-02] MEDS: PSYLLIUM SEED-SF 5.85 GM PACKET PO SCH (09:43)
[2018-03-02] MEDS: PHENOBARBITAL INJ 65 MG/ML VIAL IV SCH (09:44)
[2018-03-02] MEDS: ENOXAPARIN SODIUM INJ 40 MG/0.4 ML DISP.SYRIN SUBCUT SCH (09:46)
--- NOTE | 2018-03-02 15:21 | PDOC PROGRESS REPORT ---
Subjective Progress Note for:: 03/02/18 Subjective:: patient was admitted with abdominal pain. Sleeping today. Abd still distended and tender Reason For Visit: SEPSIS,ACUTE KIDNEY INJURY Physical Exam Vital Signs: Temp Pulse Resp BP Pulse Ox 100.0 F 80 16 113/55 L 93 03/02/18 12:03 03/02/18 14:00 03/02/18 12:03 03/02/18 12:03 03/02/18 12:03 Intake & Output 03/01/18 03/02/18 03/03/18 06:59 06:59 06:59 Intake Total 1699 1718 355 Output Total 2800 1925 250 Balance -1101 -207 105 Weight 97.5 kg 95.4 kg General appearance: PRESENT: no acute distress, well-developed, well-nourished Head exam: PRESENT: atraumatic, normocephalic Eye exam: PRESENT: conjunctiva pink, EOMI, PERRLA. ABSENT: scleral icterus Ear exam: PRESENT: normal external ear exam Mouth exam: PRESENT: moist, tongue midline Neck exam: ABSENT: carotid bruit, JVD, lymphadenopathy, thyromegaly Respiratory exam: PRESENT: clear to auscultation maykel. ABSENT: rales, rhonchi, wheezes Cardiovascular exam: PRESENT: RRR, +S1, +S2. ABSENT: diastolic murmur, rubs, systolic murmur Pulses: PRESENT: normal dorsalis pedis pul Vascular exam: PRESENT: normal capillary refill GI/Abdominal exam: PRESENT: distended, hyperactive bowel sounds, normal bowel sounds, tenderness - vague generalized. ABSENT: guarding, mass, organolmegaly, rebound Rectal exam: PRESENT: deferred Gentrourinary exam: PRESENT: scrotal swelling Extremities exam: PRESENT: full ROM. ABSENT: calf tenderness, clubbing, pedal edema Neurological exam: PRESENT: awake, oriented to situation, CN II-XII grossly intact, other - sleeping but easily arousable. ABSENT: motor sensory deficit Psychiatric exam: PRESENT: appropriate affect, normal mood. ABSENT: homicidal ideation, suicidal ideation Skin exam: PRESENT: dry, intact, warm. ABSENT: cyanosis, rash Results Laboratory Results: 02/28/18 05:18 02/28/18 05:18 Impressions: Abdomen/Pelvis CT 02/25/18 00:00 IMPRESSION: 1. Small umbilical hernia containing a small bowel loop with adjacent inflammatory changes, strangulation cannot be excluded. Please correlate with clinical exam. No CT evidence for bowel obstruction at this time. 2. Stool ball distending the rectum. 3. Bilateral perinephric stranding, nonspecific, may be seen with acute infection/ inflammation such as pyelonephritis. Please correlate with laboratory values/ urinalysis. 4. Colonic diverticulosis. Mild soft tissue stranding adjacent to the descending colon and sigmoid colon, may be secondary to the above findings versus early/mild acute diverticulitis. 5. Atherosclerotic disease. 3.4 x 3.4 cm infrarenal abdominal aortic aneurysm. 6. Left adrenal adenoma. 7. Small hiatal hernia. 8. Airspace opacity at the right lower lobe, may represent atelectasis or pneumonia. 9. Cardiomegaly. Coronary arteries calcifications. Assessment & Plan - Time Time Spent with patient: 15-24 minutes Anticipated discharge: SNF - Inpatient Certification Based on my medical assessment, after consideration of the patient's comorbidities, presenting symptoms, or acuity I expect that the services needed warrant INPATIENT care.: Yes Medical Necessity: Need Close Monitoring Due to Risk of Patient Decompensation, Risk of Complication if Not Cared For in Hospital - Plan Summary Plan Summary: 1. Sepsis - resolved. Continue Augmentin Day 4`. Was on Zosyn for 2 days prior to this 2. 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 We will continue with Augmentin #4 Adynamic Ileus no acute interventions planned. Patient is not a good candidate for any surgical intervention at this time Obtain KUB as abd still distended #[address] did show mild soft tissue stranding adjacent to the descending colon and sigmoid colon. Cont Augmentin 6. Small umbilical hernia which has been evaluated by general surgery with no interventions planned. 7. Acute kidney injury likely secondary to acute tubular necrosis kidney function improved 8. Obesity which will complicate recovery 9. Thrombocytopenia likely secondary to acute infection. Will obtain labs in am
--- NOTE | 2018-03-02 17:26 | RADIOLOGY REPORT (SQ) ---
EXAM DESCRIPTION: KUB/ABDOMEN (SINGLE VIEW) COMPLETED DATE/TIME: 03/02/2018 5:18 pm REASON FOR STUDY: Adynamic ileus COMPARISON: None. NUMBER OF VIEWS: One view. TECHNIQUE: Supine radiographic image of the abdomen acquired. LIMITATIONS: None. FINDINGS: BOWEL GAS PATTERN: There is no evidence of bowel obstruction. There is a moderate amount of both large and small bowel gas. CALCIFICATIONS: No suspicious calcifications. SOFT TISSUES: No gross mass or suggestion of organomegaly. HARDWARE: None in the abdomen. BONES: No acute fracture. No worrisome bone lesions. OTHER: No other significant finding. IMPRESSION: Possible ileus. No evidence of bowel obstruction. TECHNICAL DOCUMENTATION: JOB ID: [id number] [email or web address]- All Rights Reserved Reading location - IP/workstation name: [email or web address]
[2018-03-02] MEDS: PHENOBARBITAL 64.8 MG TABLET PO SCH (21:17)
[2018-03-03] MEDS: AMOXICILLIN TR/POT CLAVULANATE 500-125 MG TAB PO SCH (05:24)
[2018-03-03 05:48] LABS: HEMATOCRIT 30.4 % (37.9-51.0); HEMOGLOBIN 10.4 g/dL (13.5-17.0); MEAN CORPUSCULAR HEMOGLOBIN 31.4 pg (27.0-33.4); MEAN CORPUSCULAR HGB CONC 34.1 g/dL (32.0-36.0); MEAN CORPUSCULAR VOLUME 92 fl (80-97); PLATELET COUNT 165 10^3/uL (150-450); RED BLOOD COUNT 3.31 10^6/uL (4.35-5.55); RED CELL DISTRIBUTION WIDTH 13.5 % (11.5-14.0); WHITE BLOOD COUNT 6.5 10^3/uL (4.0-10.5)
[2018-03-03 06:04] LABS: ANION GAP 11 (5-19); BLOOD UREA NITROGEN 20 mg/dL (7-20); CALCIUM 8.6 mg/dL (8.4-10.2); CARBON DIOXIDE 25 mmol/L (22-30); CHLORIDE 105 mmol/L (98-107); GLUCOSE 90 mg/dL (75-110); POTASSIUM 3.6 mmol/L (3.6-5.0); SODIUM 140.6 mmol/L (137-145)
[2018-03-03] MEDS: DOCUSATE SODIUM 100 MG/10 ML UDC PO SCH (09:57)
[2018-03-03] MEDS: PHENOBARBITAL 64.8 MG TABLET PO SCH (09:57)
[2018-03-03] MEDS: PSYLLIUM SEED-SF 5.85 GM PACKET PO SCH (09:58)
[2018-03-03] MEDS: ENOXAPARIN SODIUM INJ 40 MG/0.4 ML DISP.SYRIN SUBCUT SCH (10:02)
[2018-03-03] MEDS ORDERED: GLUCAGON,HUMAN RECOMB 1 MG INJ SUBCUT PRN (10:59)
[2018-03-03] MEDS ORDERED: DEXTROSE 40% GEL 15 GM TUBE PO PRN ×2 (10:59)
[2018-03-03] MEDS ORDERED: DEXTROSE 50%-WATER 25 GM/50 ML DISP.SYRIN IV PRN ×2 (10:59)
[2018-03-03] MEDS ORDERED: PHARMACY COMMUNICATION ORDER MC NR (11:00)
[2018-03-03] MEDS ORDERED: ACETAMINOPHEN SOLN 325 MG/10.15 ML UDCUP NG PRN (11:11)
--- NOTE | 2018-03-03 12:33 | PDOC PROGRESS REPORT ---
Subjective Progress Note for:: 03/03/18 Subjective:: Patient was admitted with abdominal pain and was found to have a UTI. Patient was also found to have a reducible hernia was felt to be nonoperable after evaluation by surgery. There is also questionable diverticulitis on CT scan. Patient had been given antibiotics with some improvement however patient was noted to still be distended with abdominal pain and so a KUB was obtained on March 02. This continued to show significant ileus. I discussed with Dr. Almanza today and we agreed on placing an NG tube with low suction and making the patient n.p.o. We will continue with enema as tolerated. Reason For Visit: SEPSIS,ACUTE KIDNEY INJURY Physical Exam Vital Signs: Temp Pulse Resp BP Pulse Ox 98.1 F 32 L 16 122/84 92 03/03/18 08:15 03/03/18 08:15 03/03/18 08:15 03/03/18 08:15 03/03/18 08:15 Intake & Output 03/02/18 03/03/18 03/04/18 06:59 06:59 06:59 Intake Total 1718 470 Output Total 1925 850 Balance -207 -380 Weight 95.4 kg 94.7 kg General appearance: PRESENT: no acute distress, obese, well-nourished Head exam: PRESENT: atraumatic, normocephalic Eye exam: PRESENT: conjunctiva pink, EOMI, PERRLA. ABSENT: scleral icterus Ear exam: PRESENT: normal external ear exam Mouth exam: PRESENT: moist, tongue midline Neck exam: ABSENT: carotid bruit, JVD, lymphadenopathy, thyromegaly Respiratory exam: PRESENT: clear to auscultation maykel. ABSENT: rales, rhonchi, wheezes Cardiovascular exam: PRESENT: RRR. ABSENT: diastolic murmur, rubs, systolic murmur Pulses: PRESENT: normal dorsalis pedis pul Vascular exam: PRESENT: normal capillary refill GI/Abdominal exam: PRESENT: distended, hyperactive bowel sounds, rebound, tenderness - Mild vague, other - Tympanic. ABSENT: guarding, mass Rectal exam: PRESENT: deferred Extremities exam: PRESENT: full ROM. ABSENT: calf tenderness, clubbing, pedal edema Neurological exam: PRESENT: alert, awake, oriented to person, CN II-XII grossly intact. ABSENT: motor sensory deficit Psychiatric exam: PRESENT: appropriate affect. ABSENT: homicidal ideation, suicidal ideation Skin exam: PRESENT: dry, intact, warm. ABSENT: cyanosis, rash Results Laboratory Results: 03/03/18 05:24 03/03/18 05:24 03/03/18 03/03/18 05:24 05:24 WBC 6.5 RBC 3.31 L Hgb 10.4 L Hct 30.4 L MCV 92 MCH 31.4 MCHC 34.1 RDW 13.5 Plt Count 165 Sodium 140.6 Potassium 3.6 Chloride 105 Carbon Dioxide 25 Anion Gap 11 BUN 20 Creatinine 0.90 Est GFR ( Amer) > 60 Est GFR (Non-Af Amer) > 60 Glucose 90 Calcium 8.6 Impressions: Abdomen/Pelvis CT 02/25/18 00:00 IMPRESSION: 1. Small umbilical hernia containing a small bowel loop with adjacent inflammatory changes, strangulation cannot be excluded. Please correlate with clinical exam. No CT evidence for bowel obstruction at this time. 2. Stool ball distending the rectum. 3. Bilateral perinephric stranding, nonspecific, may be seen with acute infection/ inflammation such as pyelonephritis. Please correlate with laboratory values/ urinalysis. 4. Colonic diverticulosis. Mild soft tissue stranding adjacent to the descending colon and sigmoid colon, may be secondary to the above findings versus early/mild acute diverticulitis. 5. Atherosclerotic disease. 3.4 x 3.4 cm infrarenal abdominal aortic aneurysm. 6. Left adrenal adenoma. 7. Small hiatal hernia. 8. Airspace opacity at the right lower lobe, may represent atelectasis or pneumonia. 9. Cardiomegaly. Coronary arteries calcifications. KUB X-Ray 03/02/18 00:00 IMPRESSION: Possible ileus. No evidence of bowel obstruction. Assessment & Plan - Diagnosis (1) Adynamic ileus Is this a current diagnosis for this admission?: Yes (2) Anemia Qualifiers: Anemia type: unspecified type Qualified Code(s): D64.9 - Anemia, unspecified Is this a current diagnosis for this admission?: Yes Plan: Likely chronic anemia worsened with acute infection - Time Time Spent with patient: 25-34 minutes Medications reviewed and adjusted accordingly: Yes Anticipated discharge: SNF Within: within 72 hours - Inpatient Certification Based on my medical assessment, after consideration of the patient's comorbidities, presenting symptoms, or acuity I expect that the services needed warrant INPATIENT care.: Yes Medical Necessity: Need Close Monitoring Due to Risk of Patient Decompensation, Risk of Complication if Not Cared For in Hospital - Plan Summary Plan Summary: 1.Adynamic Ileus - NPO, NGT to suction, Protonix, IVF and serial KUB per response 2. 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 We will continue with Augmentin, may need to change to IV abx if needed #4 Sepsis - resolved. Continue Augmentin Day 5`. Was on Zosyn for 2 days prior to this #[address] did show mild soft tissue stranding adjacent to the descending colon and sigmoid colon. Cont Augmentin 6. Small umbilical hernia which has been evaluated by general surgery with no interventions planned. 7. Acute kidney injury likely secondary to acute tubular necrosis kidney function improved 8. Obesity which will complicate recovery 9. Thrombocytopenia likely secondary to acute infection. Resolved
[2018-03-03] MEDS ORDERED: MINERAL OIL ENEMA 133 ML PR PRN (13:00)
[2018-03-03] MEDS: AMOXICILLIN TR/POT CLAVULANATE 500-125 MG TAB NG SCH ×2 (14:16→22:04)
[2018-03-03] MEDS: PANTOPRAZOLE SODIUM 40 MG VIAL IV SCH (14:16)
[2018-03-03] MEDS: DOCUSATE SODIUM 100 MG/10 ML UDC NG SCH (17:47)
[2018-03-03] MEDS: PHENOBARBITAL 64.8 MG TABLET NG SCH (22:04)
[2018-03-04] MEDS: RINGERS SOLUTION,LACTATED 1,000 ML IV PRN ×3 (00:50→23:08)
[2018-03-04] MEDS: AMOXICILLIN TR/POT CLAVULANATE 500-125 MG TAB NG SCH ×2 (05:33→13:59)
[2018-03-04 07:07] LABS: ABSOLUTE EOSINOPHILS # (AUTO) 0.2 10^3/uL (0.0-0.6); ABSOLUTE LYMPHOCYTES (AUTO) 0.9 10^3/uL (0.5-4.7); ABSOLUTE MONOCYTES (AUTO) 0.7 10^3/uL (0.1-1.4); ABSOLUTE NEUT (AUTO) 3.9 10^3/uL (1.7-8.2); BASOPHILS % (AUTO) 0.5 % (0-2); EOSINOPHILS % (AUTO) 3.7 % (0-6); HEMATOCRIT 29.3 % (37.9-51.0); HEMOGLOBIN 10.4 g/dL (13.5-17.0); LYMPHOCYTES % (AUTO) 15.1 % (13-45); MEAN CORPUSCULAR HEMOGLOBIN 32.4 pg (27.0-33.4); MEAN CORPUSCULAR HGB CONC 35.4 g/dL (32.0-36.0); MEAN CORPUSCULAR VOLUME 92 fl (80-97); MONOCYTES % (AUTO) 12.2 % (3-13); PLATELET COUNT 153 10^3/uL (150-450); RED CELL DISTRIBUTION WIDTH 13.6 % (11.5-14.0); SEGMENTED NEUTROPHILS % (AUTO) 68.5 % (42-78); TOTAL CELLS COUNTED % (AUTO) 100 %; WHITE BLOOD COUNT 5.6 10^3/uL (4.0-10.5)
[2018-03-04 07:30] LABS: ANION GAP 8 (5-19); BLOOD UREA NITROGEN 16 mg/dL (7-20); CALCIUM 8.6 mg/dL (8.4-10.2); CARBON DIOXIDE 27 mmol/L (22-30); CHLORIDE 106 mmol/L (98-107); GLUCOSE 88 mg/dL (75-110); SODIUM 141.3 mmol/L (137-145)
[2018-03-04] MEDS: PANTOPRAZOLE SODIUM 40 MG VIAL IV SCH (10:48)
[2018-03-04] MEDS: PHENOBARBITAL 64.8 MG TABLET NG SCH ×2 (10:48→22:34)
[2018-03-04] MEDS: DOCUSATE SODIUM 100 MG/10 ML UDC NG SCH ×2 (10:49→18:14)
[2018-03-04] MEDS: ENOXAPARIN SODIUM INJ 40 MG/0.4 ML DISP.SYRIN SUBCUT SCH (10:49)
[2018-03-04] MEDS: PSYLLIUM SEED-SF 5.85 GM PACKET PO SCH (10:49)
[2018-03-04] MEDS ORDERED: AMPICILLIN SOD/SULBACTAM 3 GM VIAL IV ONE (17:11)
[2018-03-04] MEDS ORDERED: AMPICILLIN SOD/SULBACTAM 3 GM VIAL ONE (17:46)
--- NOTE | 2018-03-04 19:59 | PDOC PROGRESS REPORT ---
Subjective Progress Note for:: 03/04/18 Subjective:: Patient is slightly somnolent. He is currently n.p.o. due to an ileus. Reason For Visit: SEPSIS,ACUTE KIDNEY INJURY Physical Exam Vital Signs: Temp Pulse Resp BP Pulse Ox 97.4 F 64 18 106/64 96 03/04/18 16:00 03/04/18 16:00 03/04/18 16:00 03/04/18 16:00 03/04/18 16:00 Intake & Output 03/03/18 03/04/18 03/05/18 06:59 06:59 06:59 Intake Total 796 649 1727 Output Total 850 1100 1350 Balance -380 -686 -350 Weight 94.7 kg 94.2 kg General appearance: PRESENT: no acute distress, obese - BMI 35.6, well-developed Head exam: PRESENT: atraumatic, normocephalic Eye exam: PRESENT: conjunctiva pink. ABSENT: PERRLA Ear exam: PRESENT: normal external ear exam Neck exam: ABSENT: carotid bruit, JVD, lymphadenopathy Respiratory exam: PRESENT: clear to auscultation maykel, symmetrical, unlabored. ABSENT: rales, rhonchi, wheezes Cardiovascular exam: PRESENT: RRR, +S1, +S2 GI/Abdominal exam: PRESENT: normal bowel sounds, soft. ABSENT: distended, tenderness Musculoskeletal exam: PRESENT: normal inspection Neurological exam: PRESENT: other - Unable to assess due to somnolence Psychiatric exam: PRESENT: flat affect. ABSENT: agitated, anxious Skin exam: PRESENT: dry, normal color, warm. ABSENT: abrasion, erythema, rash Results Laboratory Results: 03/04/18 06:56 03/04/18 06:56 03/04/18 03/04/18 06:56 06:56 WBC 5.6 RBC 3.20 L Hgb 10.4 L Hct 29.3 L MCV 92 MCH 32.4 MCHC 35.4 RDW 13.6 Plt Count 153 Seg Neutrophils % 68.5 Lymphocytes % 15.1 Monocytes % 12.2 Eosinophils % 3.7 Basophils % 0.5 Absolute Neutrophils 3.9 Absolute Lymphocytes 0.9 Absolute Monocytes 0.7 Absolute Eosinophils 0.2 Absolute Basophils 0.0 Sodium 141.3 Potassium 4.0 Chloride 106 Carbon Dioxide 27 Anion Gap 8 BUN 16 Creatinine 0.86 Est GFR ( Amer) > 60 Est GFR (Non-Af Amer) > 60 Glucose 88 Calcium 8.6 Impressions: Abdomen/Pelvis CT 02/25/18 00:00 IMPRESSION: 1. Small umbilical hernia containing a small bowel loop with adjacent inflammatory changes, strangulation cannot be excluded. Please correlate with clinical exam. No CT evidence for bowel obstruction at this time. 2. Stool ball distending the rectum. 3. Bilateral perinephric stranding, nonspecific, may be seen with acute infection/ inflammation such as pyelonephritis. Please correlate with laboratory values/ urinalysis. 4. Colonic diverticulosis. Mild soft tissue stranding adjacent to the descending colon and sigmoid colon, may be secondary to the above findings versus early/mild acute diverticulitis. 5. Atherosclerotic disease. 3.4 x 3.4 cm infrarenal abdominal aortic aneurysm. 6. Left adrenal adenoma. 7. Small hiatal hernia. 8. Airspace opacity at the right lower lobe, may represent atelectasis or pneumonia. 9. Cardiomegaly. Coronary arteries calcifications. KUB X-Ray 03/02/18 00:00 IMPRESSION: Possible ileus. No evidence of bowel obstruction. Assessment & Plan - Diagnosis (1) Adynamic ileus Is this a current diagnosis for this admission?: Yes Plan: There is a suggestion of ileus on the most recent KUB. The patient's bowel sounds have improved and are normal. I am repeating his KUB and I am going to start ice chips and if he tolerates this advance his diet slowly. (2) Acute cystitis with positive culture Is this a current diagnosis for this admission?: Yes Plan: Cultures were positive for enterococcus and Proteus mirabilis. Both are sensitive to the penicillins. Because he is n.p.o. I changed him to Unasyn. He is close to fully completing his therapeutic course. - Time Time Spent with patient: 15-24 minutes Medications reviewed and adjusted accordingly: Yes
[2018-03-04] MEDS ORDERED: AMPICILLIN SOD/SULBACTAM 3 GM VIAL IV PRN (20:12)
[2018-03-05] MEDS: AMPICILLIN SODIUM/SULBACTAM NA 3 GM in NORMAL SALINE 100 ML IV SCH ×2 (00:12→06:09)
[2018-03-05] MEDS ORDERED: AMPICILLIN SOD/SULBACTAM 1.5 GM VIAL ONE (05:47)
--- NOTE | 2018-03-05 08:32 | RADIOLOGY REPORT (SQ) ---
EXAM DESCRIPTION: KUB/ABDOMEN (SINGLE VIEW) COMPLETED DATE/TIME: 03/05/2018 8:12 am REASON FOR STUDY: ileus COMPARISON: 03/02/2018 NUMBER OF VIEWS: One view. TECHNIQUE: Supine radiographic image of the abdomen acquired. LIMITATIONS: None. FINDINGS: BOWEL GAS PATTERN: Normal bowel gas pattern. No dilated loops. CONSTIPATION: Fecal impaction. CALCIFICATIONS: No suspicious calcifications. SOFT TISSUES: No gross mass or suggestion of organomegaly. HARDWARE: None in the abdomen. BONES: No acute fracture. No worrisome bone lesions. OTHER: No other significant finding. IMPRESSION: Fecal impaction. TECHNICAL DOCUMENTATION: JOB ID: [id number] [email or web address]- All Rights Reserved Reading location - IP/workstation name: [email or web address]
[2018-03-05] MEDS ORDERED: NA PHOS,M-B/NA PHOS,DI-BA (ADULT) 133 ML ENEMA PR PRN (11:07)
--- NOTE | 2018-03-05 11:15 | PDOC PROGRESS REPORT ---
Subjective Progress Note for:: 03/05/18 Subjective:: 03/04/2018-patient is slightly somnolent. He is currently n.p.o. due to an ileus. March 05, 2018-the patient is somewhat grumpy today but he just had a large bowel movement with underlying severe constipation. Reason For Visit: SEPSIS,ACUTE KIDNEY INJURY Physical Exam Vital Signs: Temp Pulse Resp BP Pulse Ox 98.3 F 57 L 17 107/62 97 03/05/18 03:32 03/05/18 07:00 03/05/18 03:32 03/05/18 03:32 03/05/18 03:32 Intake & Output 03/04/18 03/05/18 03/06/18 06:59 06:59 06:59 Intake Total 414 2100 Output Total 1100 1800 Balance -686 300 Weight 94.2 kg 91 kg General appearance: PRESENT: no acute distress, mild distress, well-developed Head exam: PRESENT: atraumatic, normocephalic Eye exam: PRESENT: conjunctiva pink. ABSENT: scleral icterus Ear exam: PRESENT: other - Hearing loss Mouth exam: PRESENT: moist Respiratory exam: PRESENT: clear to auscultation maykel, symmetrical, unlabored. ABSENT: rales, rhonchi, wheezes Cardiovascular exam: PRESENT: RRR, +S1, +S2 GI/Abdominal exam: PRESENT: distended - Slightly, normal bowel sounds, soft. ABSENT: guarding, tenderness Neurological exam: PRESENT: other - Dementia Results Laboratory Results: 03/04/18 06:56 03/04/18 06:56 Impressions: Abdomen/Pelvis CT 02/25/18 00:00 IMPRESSION: 1. Small umbilical hernia containing a small bowel loop with adjacent inflammatory changes, strangulation cannot be excluded. Please correlate with clinical exam. No CT evidence for bowel obstruction at this time. 2. Stool ball distending the rectum. 3. Bilateral perinephric stranding, nonspecific, may be seen with acute infection/ inflammation such as pyelonephritis. Please correlate with laboratory values/ urinalysis. 4. Colonic diverticulosis. Mild soft tissue stranding adjacent to the descending colon and sigmoid colon, may be secondary to the above findings versus early/mild acute diverticulitis. 5. Atherosclerotic disease. 3.4 x 3.4 cm infrarenal abdominal aortic aneurysm. 6. Left adrenal adenoma. 7. Small hiatal hernia. 8. Airspace opacity at the right lower lobe, may represent atelectasis or pneumonia. 9. Cardiomegaly. Coronary arteries calcifications. KUB X-Ray 03/05/18 06:00 IMPRESSION: Fecal impaction. Assessment & Plan - Diagnosis (1) Adynamic ileus Is this a current diagnosis for this admission?: Yes Plan: 03/04/2018-there is a suggestion of ileus on the most recent KUB. The patient's bowel sounds have improved and are normal. I am repeating his KUB and I am going to start ice chips and if he tolerates this advance his diet slowly. March 05, 2018-repeat KUB this morning showed large amount of retained feces. The patient just had a large bowel movement. I am going to add MiraLAX daily and make a fleets enema available. I will also advance his diet. (2) Acute cystitis with positive culture Is this a current diagnosis for this admission?: Yes Plan: 03/04/2018-cultures were positive for enterococcus and Proteus mirabilis. Both are sensitive to the penicillins. Because he is n.p.o. I changed him to Unasyn. He is close to fully completing his therapeutic course. March 05, 2018-the patient is taking medications by mouth again. The Unasyn was discontinued and Augmentin was restarted. Of note he did exhibit a prolonged QT interval likely from the Unasyn. - Time Time Spent with patient: 15-24 minutes Medications reviewed and adjusted accordingly: Yes
[2018-03-05] MEDS: PANTOPRAZOLE SODIUM 40 MG VIAL IV SCH (11:38)
[2018-03-05] MEDS: PSYLLIUM SEED-SF 5.85 GM PACKET PO SCH (11:39)
[2018-03-05] MEDS: ENOXAPARIN SODIUM INJ 40 MG/0.4 ML DISP.SYRIN SUBCUT SCH (11:39)
[2018-03-05] MEDS: PHENOBARBITAL 64.8 MG TABLET NG SCH ×2 (11:39→21:27)
[2018-03-05] MEDS: AMOXICILLIN TR/POT CLAVULANATE 500-125 MG TAB PO SCH ×2 (14:45→21:27)
[2018-03-05] MEDS: RINGERS SOLUTION,LACTATED 1,000 ML IV PRN (17:43)
[2018-03-05] MEDS: DOCUSATE SODIUM 100 MG CAPSULE PO SCH (17:43)
[2018-03-06] MEDS: AMOXICILLIN TR/POT CLAVULANATE 500-125 MG TAB PO SCH ×3 (05:19→21:14)
[2018-03-06 07:24] LABS: ANION GAP 13 (5-19); CALCIUM 8.8 mg/dL (8.4-10.2); CARBON DIOXIDE 24 mmol/L (22-30); CHLORIDE 105 mmol/L (98-107); GLUCOSE 85 mg/dL (75-110); POTASSIUM 4.3 mmol/L (3.6-5.0); SODIUM 141.8 mmol/L (137-145)
[2018-03-06 07:40] LABS: BLOOD UREA NITROGEN 14 mg/dL (7-20)
[2018-03-06] MEDS: DOCUSATE SODIUM 100 MG CAPSULE PO SCH ×2 (09:27→17:12)
[2018-03-06] MEDS: PHENOBARBITAL 64.8 MG TABLET NG SCH ×2 (09:27→21:14)
[2018-03-06] MEDS: PANTOPRAZOLE SODIUM 40 MG VIAL IV SCH (09:27)
[2018-03-06] MEDS: ENOXAPARIN SODIUM INJ 40 MG/0.4 ML DISP.SYRIN SUBCUT SCH (09:28)
[2018-03-06] MEDS: POLYETHYLENE GLYCOL 3350 POWDER 17 GM/1 PACKET PO SCH (09:29)
[2018-03-06] MEDS: PSYLLIUM SEED-SF 5.85 GM PACKET PO SCH (09:29)
[2018-03-06] MEDS ORDERED: IPRATROPIUM/ALBUTEROL 0.5-2.5 MG/3 ML AMPUL NEB PRN (09:47)
--- NOTE | 2018-03-06 10:08 | PDOC PROGRESS REPORT ---
Subjective Progress Note for:: 03/06/18 Subjective:: 03/04/2018-patient is slightly somnolent. He is currently n.p.o. due to an ileus. March 05, 2018-the patient is somewhat grumpy today but he just had a large bowel movement with underlying severe constipation. 03/06/2018-the patient had another large bowel movement last night. The ileus appears to be resolved. Unfortunately he has very congested breath sounds. Reason For Visit: SEPSIS,ACUTE KIDNEY INJURY Physical Exam Vital Signs: Temp Pulse Resp BP Pulse Ox 98.3 F 60 18 122/69 93 03/06/18 00:00 03/06/18 07:00 03/06/18 00:00 03/06/18 00:00 03/06/18 00:00 Intake & Output 03/05/18 03/06/18 03/07/18 06:59 06:59 06:59 Intake Total 2100 1558 1000 Output Total 1800 3050 Balance 300 -1492 1000 Weight 91 kg 92 kg General appearance: PRESENT: hard of hearing, mild distress, obese - BMI 34.8, well-developed Head exam: PRESENT: atraumatic, normocephalic Eye exam: PRESENT: conjunctiva pink. ABSENT: scleral icterus Mouth exam: PRESENT: moist, tongue midline Respiratory exam: PRESENT: symmetrical. ABSENT: accessory muscle use, clear to auscultation maykel - Extremely congested breath sounds. No rales detected at the bases., stridor, wheezes Cardiovascular exam: PRESENT: RRR, +S1, +S2, systolic murmur - 2/6 GI/Abdominal exam: PRESENT: distended, normal bowel sounds, soft. ABSENT: guarding, tenderness Extremities exam: PRESENT: pedal edema - Trace Neurological exam: PRESENT: alert, awake, oriented to person Psychiatric exam: PRESENT: flat affect Results Laboratory Results: 03/04/18 06:56 03/06/18 06:06 03/06/18 06:06 Sodium 141.8 Potassium 4.3 Chloride 105 Carbon Dioxide 24 Anion Gap 13 BUN 14 Creatinine 0.81 Est GFR ( Amer) > 60 Est GFR (Non-Af Amer) > 60 Glucose 85 Calcium 8.8 Impressions: Abdomen/Pelvis CT 02/25/18 00:00 IMPRESSION: 1. Small umbilical hernia containing a small bowel loop with adjacent inflammatory changes, strangulation cannot be excluded. Please correlate with clinical exam. No CT evidence for bowel obstruction at this time. 2. Stool ball distending the rectum. 3. Bilateral perinephric stranding, nonspecific, may be seen with acute infection/ inflammation such as pyelonephritis. Please correlate with laboratory values/ urinalysis. 4. Colonic diverticulosis. Mild soft tissue stranding adjacent to the descending colon and sigmoid colon, may be secondary to the above findings versus early/mild acute diverticulitis. 5. Atherosclerotic disease. 3.4 x 3.4 cm infrarenal abdominal aortic aneurysm. 6. Left adrenal adenoma. 7. Small hiatal hernia. 8. Airspace opacity at the right lower lobe, may represent atelectasis or pneumonia. 9. Cardiomegaly. Coronary arteries calcifications. KUB X-Ray 03/05/18 06:00 IMPRESSION: Fecal impaction. Assessment & Plan - Diagnosis (1) Adynamic ileus Is this a current diagnosis for this admission?: Yes Plan: 03/04/2018-there is a suggestion of ileus on the most recent KUB. The patient's bowel sounds have improved and are normal. I am repeating his KUB and I am going to start ice chips and if he tolerates this advance his diet slowly. March 05, 2018-repeat KUB this morning showed large amount of retained feces. The patient just had a large bowel movement. I am going to add MiraLAX daily and make a fleets enema available. I will also advance his diet. 03/06/2018-the patient has been taking diet by mouth and oral medications. He has had several bowel movements. The ileus is resolved. He needs to continue on stool softeners. (2) Acute cystitis with positive culture Is this a current diagnosis for this admission?: Yes Plan: 03/04/2018-cultures were positive for enterococcus and Proteus mirabilis. Both are sensitive to the penicillins. Because he is n.p.o. I changed him to Unasyn. He is close to fully completing his therapeutic course. March 05, 2018-the patient is taking medications by mouth again. The Unasyn was discontinued and Augmentin was restarted. Of note he did exhibit a prolonged QT interval likely from the Unasyn. 03/06/2018-will receive a full course of antibiotic therapy. This is a permanent Anderson catheter. Consider suprapubic placement. He certainly is at risk for recurrent infection. (3) COPD (chronic obstructive pulmonary disease) Qualifiers: COPD type: unspecified COPD Qualified Code(s): J44.9 - Chronic obstructive pulmonary disease, unspecified Is this a current diagnosis for this admission?: Yes Plan: 03/06/2018-the patient sounds very congested today. The family (daughters?) Deny consistent coughing with eating. The patient is low in the bed. The bases are clear and his congestion is more central in the upper chest. He could be aspirating somewhat. He does have a history of COPD. His records indicate use of the inhaler Anoro. Unfortunately he has not been on this. His oxygen saturations have remained above 90%. I am going to introduce Advair and Spiriva until he is discharged back to his home regimen. I am going to get a chest x-ray to assess for any evidence of an aspiration pneumonitis. This is unlikely considering his normal white blood cell count and normal temperature. (4) Dementia Qualifiers: Dementia type: unspecified type Dementia behavioral disturbance: without behavioral disturbance Qualified Code(s): F03.90 - Unspecified dementia without behavioral disturbance Is this a current diagnosis for this admission?: Yes Plan: 03/06/2018-the patient has been stable. He is on Aricept as an outpatient. I restarted the 5 mg daily dose. - Time Time Spent with patient: 25-34 minutes Medications reviewed and adjusted accordingly: Yes Anticipated discharge: SNF
--- NOTE | 2018-03-06 12:26 | RADIOLOGY REPORT (SQ) ---
EXAM DESCRIPTION: CHEST SINGLE VIEW COMPLETED DATE/TIME: 03/06/2018 11:53 am REASON FOR STUDY: copd, congestion COMPARISON: 04/03/2016 EXAM PARAMETERS: NUMBER OF VIEWS: One view. TECHNIQUE: Single frontal radiographic view of the chest acquired. RADIATION DOSE: NA LIMITATIONS: None. FINDINGS: LUNGS AND PLEURA: No opacities, masses or pneumothorax. No pleural effusion. MEDIASTINUM AND HILAR STRUCTURES: No masses. Contour normal. HEART AND VASCULAR STRUCTURES: Heart slightly enlarged. Mild central vascular congestion. BONES: No acute findings. HARDWARE: None in the chest. OTHER: No other significant finding. IMPRESSION: Mild congestive heart failure. TECHNICAL DOCUMENTATION: JOB ID: [id number] [employer]- All Rights Reserved Reading location - IP/workstation name: [email or web address]
[2018-03-06] MEDS: FLUTICASONE/SALMETEROL DISKUS 250-50 MCG/DOSE IH SCH ×2 (12:48→21:18)
[2018-03-06] MEDS: TIOTROPIUM BROMIDE DPI 5 CAP/KIT (18 MCG/CAP) IH SCH (12:48)
[2018-03-06] MEDS ORDERED: DONEPEZIL HCL 5 MG TABLET PO SCH (22:00)
[2018-03-07] MEDS: AMOXICILLIN TR/POT CLAVULANATE 500-125 MG TAB PO SCH ×2 (05:08→13:09)
[2018-03-07] MEDS: PSYLLIUM SEED-SF 5.85 GM PACKET PO SCH (09:19)
[2018-03-07] MEDS: POLYETHYLENE GLYCOL 3350 POWDER 17 GM/1 PACKET PO SCH (09:19)
[2018-03-07] MEDS: DOCUSATE SODIUM 100 MG CAPSULE PO SCH (09:19)
[2018-03-07] MEDS: PHENOBARBITAL 64.8 MG TABLET NG SCH (09:20)
[2018-03-07] MEDS: TIOTROPIUM BROMIDE DPI 5 CAP/KIT (18 MCG/CAP) IH SCH (09:20)
[2018-03-07] MEDS: FLUTICASONE/SALMETEROL DISKUS 250-50 MCG/DOSE IH SCH (09:20)
[2018-03-07] MEDS: ENOXAPARIN SODIUM INJ 40 MG/0.4 ML DISP.SYRIN SUBCUT SCH (09:21)
--- NOTE | 2018-03-07 11:29 | PDOC TRANSFER SUMMARY ---
General - Admit/Disc Date/PCP Admission Date/Primary Care Provider: 02/25/18 18:45 GRICELDA RYAN MD Discharge Date: 03/07/18 - Discharge Diagnosis (1) Adynamic ileus Is this a current diagnosis for this admission?: Yes Summary: He was diagnosed with an ileus. Abdominal x-ray revealed a significant fecal load. He was placed on an aggressive bowel regimen. He subsequently had multiple large bowel movements and the ileus resolved. (2) Acute cystitis with positive culture Is this a current diagnosis for this admission?: Yes Summary: Urine culture was positive for Enterococcus faecalis and Klebsiella. He will continue his Augmentin therapy for 5 additional days. (3) COPD (chronic obstructive pulmonary disease) Is this a current diagnosis for this admission?: Yes Summary: The patient return to his Brio Ellipta inhaler. Because of increased congestion I have added Spiriva as well. (4) Dementia Is this a current diagnosis for this admission?: Yes Summary: Continue previous medication regimen. - Additional Information Resuscitation Status: Full Code Discharge Diet: Cardiac Discharge Activity: Activity As Tolerated Prescriptions: Amox Tr/Potassium Clavulanate [Augmentin "500" Tablet] 1 tab PO Q8 5 Days #15 tablet Tiotropium [place] [Spiriva Handihaler 5 Cap/Kit (18 Mcg/Cap)] 1 cap IH DAILY 30 Days #1 kit Home Medications: Albuterol Sulfate [Ventolin HFA MDI 18 GM] 2 puff PO Q4HP PRN 02/12/17 Aspirin [Aspirin 325 mg Tablet] 325 mg PO DAILY 02/12/17 Atorvastatin Calcium [Lipitor 40 mg Tablet] 40 mg PO Q12 02/12/17 Docusate Sodium [Colace 100 mg Capsule] 100 mg PO BID 02/12/17 Ferrous Sulfate [Feosol 325 mg Tablet] 325 mg PO Q12 02/12/17 Finasteride [Proscar 5 mg Tablet] 5 mg PO DAILY 02/12/17 Fluticasone Propionate [Flonase Nasal Enfield 50 Mcg/Enfield 16 gm] 1 spray NAREB DAILY 02/12/17 Furosemide [Lasix 20 mg Tablet] 20 mg PO DAILY 02/12/17 Phenobarbital [Phenobarbital 64.8 mg Tablet] 64.8 mg PO Q12 02/12/17 Quetiapine Fumarate [Seroquel 25 mg Tablet] 25 mg PO Q8 02/12/17 Tamsulosin HCl [Flomax 0.4 mg Cap.sr] 0.4 mg PO DAILY 02/12/17 Umeclidinium Brm/Vilanterol Tr [Anoro Ellipta 62.5-25 Mcg INH] 1 puff IH DAILY 02/12/17 Donepezil HCl [Aricept 5 mg Tablet] 5 mg PO DAILY 08/30/17 Metoprolol Succinate [Toprol Xl 25 mg Tab.sr] 25 mg PO DAILY 30 Days #30 tab.sr.24h 09/04/17 Sennosides [Senna Laxative] 17.2 mg PO BID 30 Days #60 09/04/17 Cyanocobalamin (Vitamin B-12) [Vitamin B-12 Inj 1000 Mcg/1 ml Vial] 1,000 mcg IM .MONTHLY 02/26/18 Amox Tr/Potassium Clavulanate [Augmentin "500" Tablet] 1 tab PO Q8 5 Days #15 tablet 03/07/18 Docusate Sodium [Colace 100 mg Capsule] 100 mg PO BID capsule 03/07/18 Donepezil HCl [Aricept 5 mg Tablet] 5 mg PO QHS tablet 03/07/18 Psyllium Seed [Metamucil-Sf Powder 5.85 gm Packet] 1 packet PO DAILY packet 07/20 Tiotropium [place] [Spiriva Handihaler 5 Cap/Kit (18 Mcg/Cap)] 1 cap IH DAILY 30 Days #1 kit 03/07/18 History of Present Illness Admission Date/PCP: 02/25/18 18:45 GRICELDA RYAN MD Patient complains of: The [facility] in a [facility] facility. When family is visiting they noticed significant purulence in the Anderson catheter tubing. Follow-up they requested that the patient be sent to the emergency department. History of Present Illness: JESENIA LÓPEZ is a 77 year old male who lives in a [facility] facility. He has a history of dementia with chronic obstructive pulmonary disease, congestive heart failure (systolic and diastolic) as well as myocardial infarction and atrial fibrillation. He also has a history of dementia depression and bipolar disorder. Initial evaluation in the emergency department revealed a distended abdomen with radiologic evidence of ileus. In addition urinalysis was positive and subsequently urine culture was positive for enterococcus and Klebsiella. He was started on antibiotic therapy. He was n.p.o. only briefly until he had large bowel movements. The ileus resolved. He does have history of COPD. He was congested during his admission I did add Spiriva to his Brio Ellipta regimen. This seems to be helping. He has improved and is stable and ready to transition back to the [facility] facility. Hospital Course Hospital Course: As above. The patient did not have any acute declines during his admission. Physical Exam Vital Signs: Temp Pulse Resp BP Pulse Ox 98.4 F 76 16 121/66 89 L 03/07/18 07:46 03/07/18 10:49 03/07/18 10:49 03/07/18 07:46 03/07/18 10:49 Intake & Output 03/06/18 03/07/18 03/08/18 06:59 06:59 06:59 Intake Total 1558 1829 Output Total 3050 1500 Balance -1492 329 Weight 92 kg 89.2 kg General appearance: PRESENT: no acute distress, disheveled, hard of hearing, obese, well-developed Head exam: PRESENT: atraumatic, normocephalic Respiratory exam: PRESENT: symmetrical, unlabored, other - Still with faintly congested breath sounds but markedly improved from yesterday.. ABSENT: crackles , rales, rhonchi Cardiovascular exam: PRESENT: RRR, +S1, +S2 Pulses: PRESENT: +1 pedal pulses bilateral GI/Abdominal exam: PRESENT: distended - Protuberant abdomen., normal bowel sounds, soft. ABSENT: guarding, tenderness Extremities exam: PRESENT: pedal edema. ABSENT: calf tenderness Neurological exam: PRESENT: alert, awake, oriented to person, oriented to place Psychiatric exam: PRESENT: appropriate affect, normal mood. ABSENT: agitated Results Laboratory Results: 03/04/18 06:56 03/06/18 06:06 Impressions: Abdomen/Pelvis CT 02/25/18 00:00 IMPRESSION: 1. Small umbilical hernia containing a small bowel loop with adjacent inflammatory changes, strangulation cannot be excluded. Please correlate with clinical exam. No CT evidence for bowel obstruction at this time. 2. Stool ball distending the rectum. 3. Bilateral perinephric stranding, nonspecific, may be seen with acute infection/ inflammation such as pyelonephritis. Please correlate with laboratory values/ urinalysis. 4. Colonic diverticulosis. Mild soft tissue stranding adjacent to the descending colon and sigmoid colon, may be secondary to the above findings versus early/mild acute diverticulitis. 5. Atherosclerotic disease. 3.4 x 3.4 cm infrarenal abdominal aortic aneurysm. 6. Left adrenal adenoma. 7. Small hiatal hernia. 8. Airspace opacity at the right lower lobe, may represent atelectasis or pneumonia. 9. Cardiomegaly. Coronary arteries calcifications. KUB X-Ray 03/05/18 06:00 IMPRESSION: Fecal impaction. Chest X-Ray 03/06/18 00:00 IMPRESSION: Mild congestive heart failure. Transfer Plan - Disposition Transfer Plan: The patient will return to the [facility]. The only changes in his regimen are the addition of Spiriva and a short course of antibiotic therapy. - Time Spent with Patient Time spent with patient: Less than 30 Minutes Qualifiers - * PATIENT BEING DISCHARGED WITH ANY OF THE FOLLOWING DIAGNOSIS: No Plan Time Spent: Less than 30 Minutes
[2018-03-07 12:37] VITALS: BP 119/58
== END 2018-03-07 16:35 | DRG 698 ==
LOC: ER 15:36 → EH 18:45 → 3S 21:34 → 4S 03-04 05:27
PROVIDERS: ADMIT Internal Medicine; ATTEND Internal Medicine
PROC: 0D9670Z Drainage of Stomach with Drainage Device, Via Natural or Artificial Opening (ICD-10-PCS; principal; 2018-02-25)
PROC: 05HY33Z Insertion of Infusion Device into Upper Vein, Percutaneous Approach (ICD-10-PCS; 2018-02-25)
DX: T83.511A Infection and inflammatory reaction due to indwelling urethral catheter, initial encounter (principal); A41.9 Sepsis, unspecified organism; N30.01 Acute cystitis with hematuria; N17.9 Acute kidney failure, unspecified; K56.7 Ileus, unspecified; I50.40 Unspecified combined systolic (congestive) and diastolic (congestive) heart failure; I48.91 Unspecified atrial fibrillation; B95.2 Enterococcus as the cause of diseases classified elsewhere; B96.4 Proteus (mirabilis) (morganii) as the cause of diseases classified elsewhere; D64.9 Anemia, unspecified; F03.90 Unspecified dementia, unspecified severity, without behavioral disturbance, psychotic disturbance, mood disturbance, and anxiety; J44.9 Chronic obstructive pulmonary disease, unspecified; K42.9 Umbilical hernia without obstruction or gangrene; G40.909 Epilepsy, unspecified, not intractable, without status epilepticus; K44.9 Diaphragmatic hernia without obstruction or gangrene; E66.9 Obesity, unspecified; Z68.34 Body mass index [BMI] 34.0-34.9, adult; Z79.82 Long term (current) use of aspirin; Z79.899 Other long term (current) drug therapy; Z87.19 Personal history of other diseases of the digestive system; I25.2 Old myocardial infarction; Z95.5 Presence of coronary angioplasty implant and graft; Z87.891 Personal history of nicotine dependence
CPT/HCPCS: 36415; 71045; 74018; 74176; 80048; 80053; 81001; 82803; 82962; 83605; 83735; 85025; 85027; 85610; 87040; 87086; 87088; 87186; 93005; 93010; 99291; G8978-GP; G8979-GP; G8987-GO; G8988-GO; G8989-GO; J0295; J0696; J1650; J2270; J2405; J2543; J2560; J3490; J7030; J7120; S0164

== ENCOUNTER 2018-04-06 15:35 | Emergency (ER) | payer MEDICARE ==
--- NOTE | 2018-04-06 15:53 | ER Document Report ---
ED Medical Screen (RME) - General Stated Complaint: SWOLLEN TESTICLES Time Seen by Provider: 04/06/18 15:46 Mode of Arrival: Medic Information source: Emergency Med Personnel Notes: pt presents from the [facility] via EMS for possible UTI and swollen testicles. EMS reports this is a chronic issue with patient because he often masturbates. No c/o fever, vomiting, diarrhea. Pt is hard of hearing, reports he didn't even know he was coming to the hospital. Denies pain but when testicles are manipulated he winces in pain. Testicles slightly swollen, irritated looking. TRAVEL OUTSIDE OF THE [place] IN LAST 30 DAYS: No - Related Data Allergies/Adverse Reactions: No Known Allergies Allergy (Verified 08/30/17 02:57) Past Medical History - Past Medical History Cardiac Medical History: Reports: Hx Atrial Fibrillation, 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 Denies: Hx Cirrhosis, Hx Gastroesophageal Reflux Disease, Hx Hepatitis Musculoskeltal Medical History: Denies Hx Arthritis Psychiatric Medical History: Denies: Hx Bipolar Disorder, Hx Dementia, Hx Depression Infectious Medical History: Denies: Hx Hepatitis Past Surgical History: Reports: Hx Abdominal Surgery - perforated hernia, Hx Cardiac Surgery - STENT, Hx Coronary Stent - Immunizations Hx Diphtheria, Pertussis, Tetanus Vaccination: Yes History of Influenza Vaccine for 01/2017 - 06/2017 Season: Unknown Doctor's Discharge - Discharge Referrals: GRICELDA RYAN MD [Primary Care Provider] - Follow up as needed
[2018-04-06 17:00] LABS: APPEARANCE,URINE TURBID; BILIRUBIN,URINE NEGATIVE (NEGATIVE); GLUCOSE, URINE NEGATIVE (NEGATIVE); KETONES,URINE NEGATIVE (NEGATIVE); LEUKOCYTE ESTERASE,URINE LARGE (NEGATIVE); NITRITE,URINE NEGATIVE (NEGATIVE); PROTEIN,URINE >=500 mg/dL (NEGATIVE); TRIPLE PHOSPHATE CRYSTAL,URINE FEW /HPF; URINE SPECIFIC GRAVITY 1.026; UROBILINOGEN,URINE NEGATIVE mg/dL (<2.0)
[2018-04-06 17:01] LABS: COLOR,URINE YELLOW
[2018-04-06] MEDS ORDERED: CEPHALEXIN 500 MG CAPSULE PO ONE (19:46)
--- NOTE | 2018-04-06 19:50 | ER Document Report ---
ED General - General Chief Complaint: Testicular Problem Stated Complaint: SWOLLEN TESTICLES Time Seen by Provider: 04/06/18 15:46 Mode of Arrival: Medic Cannot obtain history due to: Dementia Notes: Patient is a 77-year-old male who presents by EMS due to sediment being in his Anderson catheter. Patient is profoundly demented and unable to provide any meaningful history. Family at the bedside states that he did not know the patient was being transported to the emergency department until he had already arrived. They themselves likewise has not noted any reasons for the patient to be transferred to the emergency department. When they contacted the nursing facility they were informed that it was because they were concerned he could have a urinary tract infection so they sent him. TRAVEL OUTSIDE OF THE [place] 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 Denies: Hx Cirrhosis, Hx Gastroesophageal Reflux Disease, Hx Hepatitis Musculoskeletal Medical History: Denies Hx Arthritis Psychiatric Medical History: Denies: Hx Bipolar Disorder, Hx Dementia, Hx Depression Infectious Medical History: Denies: Hx Hepatitis Past Surgical History: Reports: Hx Abdominal Surgery - perforated hernia, Hx Cardiac Surgery - STENT, Hx Coronary Stent - Immunizations Hx Diphtheria, Pertussis, Tetanus Vaccination: Yes Hx Pneumococcal Vaccination: 01/02/11 Review of Systems - Review of Systems -: Yes ROS unobtainable due to patient's medical condition Physical Exam - Vital signs Vitals: Temp Pulse Resp BP Pulse Ox 97.6 F 66 18 124/54 L 96 04/06/18 15:57 04/06/18 15:57 04/06/18 15:57 04/06/18 15:57 04/06/18 15:57 Interpretation: Normal Notes: PHYSICAL EXAMINATION: GENERAL: Elderly male, in no distress. HEAD: Atraumatic, normocephalic. EYES: Pupils equal round and reactive to light, extraocular movements intact, sclera anicteric, conjunctiva are normal. ENT: nares patent, oropharynx clear without exudates. Dry mucous membranes. NECK: Normal range of motion, supple without lymphadenopathy LUNGS: Breath sounds clear to auscultation bilaterally and equal. No wheezes rales or rhonchi. HEART: Regular rate and rhythm without murmurs ABDOMEN: Soft, nontender, normoactive bowel sounds. No guarding, no rebound. No masses appreciated. EXTREMITIES: Normal range of motion, no pitting or edema. No cyanosis. NEUROLOGICAL: No focal neurological deficits. Moves all extremities spontaneously and on command. PSYCH: Alert, oriented only to name. SKIN: Warm, Dry, normal turgor, no rashes or lesions noted. Course - Re-evaluation Re-evalutation: 04/06/18 19:47 Patient presents with custodial facility concern of possible pus within his Anderson catheter. Family at bedside states that they do not know why the patient is here, nobody contacted him about the patient being transported to the emergency department until he had already been transported. Patient himself is profoundly demented and unable to provide any form of history. Family states that he is acting at his baseline. No fever, vital complete within normal limits. Urinalysis is consistent with a catheter associated infection. His Anderson catheter has been changed out, urine culture has been sent. Facility was also concerned about the possibility of testicular swelling. The patient does have a moderately swollen right testicle which family is clear to state is baseline and is not different today. Based on previous culture data, patient has been started on cephalexin to which his previous infections have been broadly susceptible. No indication for systemic labs or hospitalization at this point. Family in agreement with plan. At this time will discharge with return precautions and follow-up recommendations. Verbal discharge instructions given a the bedside and opportunity for questions given. Medication warnings reviewed. Family is in agreement with this plan and has verbalized understanding of return precautions and the need for primary care follow-up in the next 24-72 hours. - Vital Signs Vital signs: Temp Pulse Resp BP Pulse Ox 98.9 F 65 19 122/65 97 04/06/18 21:00 04/06/18 21:00 04/06/18 21:00 04/06/18 21:00 04/06/18 21:00 - Laboratory Laboratory results interpreted by me: 04/06/18 15:53 Urine Protein >=500 H Ur Leukocyte Esterase LARGE H Discharge - Discharge Clinical Impression: Catheter-associated urinary tract infection Qualifiers: Indwelling urinary catheter type: indwelling urethral catheter Encounter type: initial encounter Qualified Code(s): T83.511A - Infection and inflammatory reaction due to indwelling urethral catheter, initial encounter Condition: Stable Disposition: HOME-SNF (ED ONLY) Additional Instructions: It appears that your father has a catheter associated urinary tract infection. His catheter has been changed out and should be changed every 4 weeks. He has been started on cephalexin to treat this infection. Please return for follow develops a fever, change in behavior, refuses to eat or drink, begins complaining of abdominal pain, or has any other symptoms that are worrisome to you. Prescriptions: Cephalexin Monohydrate [Keflex 500 mg Capsule] 500 mg PO Q6H 7 Days capsule Referrals: GRICELDA RYAN MD [Primary Care Provider] - Follow up as needed
[2018-04-06 21:25] VITALS: BP 122/65
== END 2018-04-06 21:24 ==
LOC: ER 15:35
DX: T83.511A Infection and inflammatory reaction due to indwelling urethral catheter, initial encounter (principal); N50.89 Other specified disorders of the male genital organs; F03.90 Unspecified dementia, unspecified severity, without behavioral disturbance, psychotic disturbance, mood disturbance, and anxiety; X58.XXXA Exposure to other specified factors, initial encounter; I48.91 Unspecified atrial fibrillation; I50.9 Heart failure, unspecified; I25.2 Old myocardial infarction
CPT/HCPCS: 99284; 51702; 87086; 87088; 81001; 87186; A9270

== ENCOUNTER 2018-05-09 13:30 | Inpatient (IN) | payer MEDICARE ==
--- NOTE | 2018-05-09 15:07 | RADIOLOGY REPORT (SQ) ---
EXAM DESCRIPTION: CHEST SINGLE VIEW COMPLETED DATE/TIME: 05/09/2018 2:57 pm REASON FOR STUDY: ABDOMINAL PAIN COMPARISON: 03/06/2018 EXAM PARAMETERS: NUMBER OF VIEWS: One view. TECHNIQUE: Single frontal radiographic view of the chest acquired. RADIATION DOSE: NA LIMITATIONS: None. FINDINGS: LUNGS AND PLEURA: Mild basilar predominant interstitial opacities. No dense consolidation . No significant pleural effusion. No pneumothorax. MEDIASTINUM AND HILAR STRUCTURES: Fluffy perihilar opacities bilaterally. HEART AND VASCULAR STRUCTURES: Enlarged, stable. Atherosclerotic aorta. BONES: No acute bony abnormality. Osteopenia. HARDWARE: None in the chest. OTHER: Hiatal hernia. IMPRESSION: Stable enlarged cardiac silhouette with mild interstitial edema. TECHNICAL DOCUMENTATION: JOB ID: [id number] [employer]- All Rights Reserved Reading location - IP/workstation name: [email or web address]
[2018-05-09 15:12] LABS: HEMATOCRIT 35.6 % (37.9-51.0); MEAN CORPUSCULAR HEMOGLOBIN 30.5 pg (27.0-33.4); MEAN CORPUSCULAR HGB CONC 33.6 g/dL (32.0-36.0); MEAN CORPUSCULAR VOLUME 91 fl (80-97); PLATELET COUNT 226 10^3/uL (150-450); RED BLOOD COUNT 3.92 10^6/uL (4.35-5.55); RED CELL DISTRIBUTION WIDTH 13.8 % (11.5-14.0); WHITE BLOOD COUNT 22.8 10^3/uL (4.0-10.5)
[2018-05-09 15:26] LABS: APPEARANCE,URINE TURBID; BILIRUBIN,URINE NEGATIVE (NEGATIVE); COLOR,URINE RED; GLUCOSE, URINE NEGATIVE (NEGATIVE); KETONES,URINE NEGATIVE (NEGATIVE); LEUKOCYTE ESTERASE,URINE MODERATE (NEGATIVE); NITRITE,URINE NEGATIVE (NEGATIVE); PROTEIN,URINE >=500 mg/dL (NEGATIVE); URINE SPECIFIC GRAVITY 1.014; UROBILINOGEN,URINE NEGATIVE mg/dL (<2.0)
[2018-05-09 15:36] LABS: ALANINE AMINOTRANSFERASE 22 U/L (21-72); ALBUMIN 4.6 g/dL (3.5-5.0); ALKALINE PHOSPHATASE 122 U/L (38-126); ANION GAP 13 (5-19); ASPARTATE AMINO TRANSFERASE 31 U/L (17-59); BILIRUBIN,DIRECT 0.3 mg/dL (0.0-0.4); BILIRUBIN,TOTAL 0.3 mg/dL (0.2-1.3); BLOOD UREA NITROGEN 25 mg/dL (7-20); CALCIUM 9.6 mg/dL (8.4-10.2); CARBON DIOXIDE 24 mmol/L (22-30); CHLORIDE 107 mmol/L (98-107); GLUCOSE 133 mg/dL (75-110); POTASSIUM 3.7 mmol/L (3.6-5.0); SODIUM 143.8 mmol/L (137-145); TOTAL PROTEIN 7.6 g/dL (6.3-8.2)
--- NOTE | 2018-05-09 15:36 | ER Document Report ---
ED General - General Chief Complaint: Problem with Urinary Catheter Stated Complaint: PULLED OUT PADGETT Time Seen by Provider: 05/09/18 13:49 Primary Care Provider: GRICELDA RYAN MD [Primary Care Provider] - Follow up as needed Mode of Arrival: Medic Information source: Relative Cannot obtain history due to: Dementia TRAVEL OUTSIDE OF THE [place] IN LAST 30 DAYS: No - HPI Patient complains to provider of: Pulled out Padgett catheter Onset: Just prior to arrival Onset/Duration: Sudden Severity: Moderate Associated symptoms: denies: Chills, Fever Exacerbated by: Denies Relieved by: Denies Similar symptoms previously: Yes Recently seen / treated by doctor: No Notes: Patient is a 78-year-old male presenting to the ED with chief complaint "he pulled out his Padgett catheter". Patient lives at an assisted living facility. Facility claims that he pulled out his Padgett catheter today and has been having pain. Patient is not a good historian. Fortunately, shortly after initial evaluation, his family members including his ex-, daughter, and grandson came to the department and reported to me that he gets frequent serious urinary tract infections because of the Padgett. They state that he is normally talkative and very pleasant and awake and oriented. They state that his current presentation is consistent with another urinary tract infection. - Related Data Allergies/Adverse Reactions: No Known Allergies Allergy (Verified 08/30/17 02:57) Past Medical History - General Information source: Relative Cannot obtain history due to: Dementia - Social History Smoking Status: Unknown if Ever Smoked Family History: Reviewed & Not Pertinent, Hypertension Patient has suicidal ideation: No Patient has homicidal ideation: No - Past Medical History Cardiac Medical History: Reports: Hx Atrial Fibrillation, 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 Denies: Hx Cirrhosis, Hx Gastroesophageal Reflux Disease, Hx Hepatitis Musculoskeletal Medical History: Denies Hx Arthritis Psychiatric Medical History: Denies: Hx Bipolar Disorder, Hx Dementia, Hx Depression Infectious Medical History: Denies: Hx Hepatitis Past Surgical History: Reports: Hx Abdominal Surgery - perforated hernia, Hx Cardiac Surgery - STENT, Hx Coronary Stent - Immunizations Hx Diphtheria, Pertussis, Tetanus Vaccination: Yes Hx Pneumococcal Vaccination: 01/02/11 Review of Systems - Review of Systems Constitutional: denies: Chills, Fever EENT: No symptoms reported Cardiovascular: denies: Chest pain, Palpitations, Dyspnea, Syncope Respiratory: denies: Cough, Short of breath, Wheezing Gastrointestinal: Abdominal pain. denies: Diarrhea, Nausea, Vomiting, Constipation Genitourinary: No symptoms reported Male Genitourinary: No symptoms reported Musculoskeletal: No symptoms reported Skin: No symptoms reported Hematologic/Lymphatic: No symptoms reported Neurological/Psychological: No symptoms reported -: Yes All other systems reviewed and negative Physical Exam - Vital signs Vitals: Temp Pulse Resp BP Pulse Ox 99.1 F 116 H 20 162/83 H 94 05/09/18 13:42 05/09/18 13:42 05/09/18 13:42 05/09/18 13:42 05/09/18 13:42 - General General appearance: No: Combative, Lethargic, Unresponsive In distress: Mild Notes: Patient appears uncomfortable - HEENT Head: Normocephalic, Atraumatic Mucous membranes: Dry - Respiratory Respiratory status: No respiratory distress Breath sounds: Normal Chest palpation: Normal - Cardiovascular Rhythm: Regular Heart sounds: Normal auscultation - Abdominal Inspection: Normal Distension: Distended, Other - Ventral hernia Bowel sounds: Normal Tenderness: Other - Suprapubic tenderness Organomegaly: No organomegaly - Genitourinary Inspection: Other - Initially, Padgett catheter still inflated but with copious urine leakage Tenderness: Nontender Cremasteric reflex: Normal Scrotum: Normal - Back Back: Normal - Extremities Notes: Atraumatic, moves all extremities well - Neurological Neuro grossly intact: Yes - Skin Skin Temperature: Warm Skin Moisture: Dry Skin Color: Normal Skin irregularity: negative: Rash Course - Re-evaluation Re-evalutation: 05/09/18 17:08 Initially, patient is worked up for a probable urosepsis. His labs with urinalysis correspond to this. When he initially arrived, he seemed to be in a lot of pain in his abdomen so a CT scan was ordered. Shortly after the patient returned from CT scan he started throwing up black colored emesis. This was tested and was positive for blood. Also, patient is now satting 88-89% on room air after throwing up. Questioning possible aspiration pneumonia. We will start him on some oxygen via nasal cannula and repeat his chest x-ray. Also add BNP to his lab work. 05/09/18 19:25 Patient remains hemodynamically stable. His heart rate has come down and has no longer tachycardic. His blood pressure is now 111/67. I have spoken to Dr. Watkins on and he recommended getting patient consented for EGD. Also recommended a 80 mg bolus of Protonix. Patient has a right-sided pleural effusion and also has very elevated BNP. 05/09/18 19:27 I discussed the phone with Dr. Klein and he agreed to do the admission. - Vital Signs Vital signs: Temp Pulse Resp BP Pulse Ox 100.1 F 116 H 20 162/83 H 94 05/09/18 17:26 05/09/18 13:42 05/09/18 13:42 05/09/18 13:42 05/09/18 13:42 - Laboratory Result Diagrams: 05/09/18 15:00 05/09/18 15:00 Laboratory results interpreted by me: 05/09/18 05/09/18 05/09/18 15:00 15:00 15:00 WBC 22.8 H RBC 3.92 L Hgb 12.0 L Hct 35.6 L Seg Neuts % (Manual) 87 H Band Neutrophils % 2 L Lymphocytes % (Manual) 3 L Abs Neuts (Manual) 20.3 H Abs Monocytes (Manual) 1.6 H BUN 25 H Creatinine 1.76 H Est GFR ( Amer) 45 L Est GFR (Non-Af Amer) 38 L Glucose 133 H Lactic Acid 3.8 H NT-Pro-B Natriuret Pep Urine Protein Urine Blood Ur Leukocyte Esterase 05/09/18 05/09/18 15:00 15:07 WBC RBC Hgb Hct Seg Neuts % (Manual) Band Neutrophils % Lymphocytes % (Manual) Abs Neuts (Manual) Abs Monocytes (Manual) BUN Creatinine Est GFR ( Amer) Est GFR (Non-Af Amer) Glucose Lactic Acid NT-Pro-B Natriuret Pep 8450 H Urine Protein >=500 H Urine Blood MODERATE H Ur Leukocyte Esterase MODERATE H - Diagnostic Test Radiology reviewed: Reports reviewed - EKG Interpretation by Me EKG shows normal: Sinus rhythm Rate: Tachycardia Rhythm: Other - Multiple PVCs Discharge - Discharge Clinical Impression: Acute kidney injury (nontraumatic), Pleural effusion, Elevated brain natriuretic peptide (BNP) level UTI (urinary tract infection) Qualifiers: Urinary tract infection type: site unspecified Hematuria presence: with hematuria Qualified Code(s): N39.0 - Urinary tract infection, site not specified Sepsis Qualifiers: Sepsis type: sepsis due to unspecified organism Qualified Code(s): A41.9 - Sepsis, unspecified organism Condition: Stable Disposition: ADMITTED INPATIENT Admitting Provider: Hospitalist Unit Admitted: ICU Referrals: GRICELDA RYAN MD [Primary Care Provider] - Follow up as needed
[2018-05-09 15:37] LABS: ABSOLUTE LYMPHOCYTES# (MANUAL) 0.7 10^3/uL (0.5-4.7); ABSOLUTE MONOCYTES # (MANUAL) 1.6 10^3/uL (0.1-1.4); ABSOLUTE NEUTROPHILS# (MANUAL) 20.3 10^3/uL (1.7-8.2); BAND NEUTROPHILS % (MANUAL) 2 % (3-5); BASOPHILS % (MANUAL) 1 % (0-2); EOSINOPHILS % (MANUAL) 0 % (0-6); LYMPHOCYTES % (MANUAL) 3 % (13-45); MONOCYTES % (MANUAL) 7 % (3-13); PLATELET COMMENT ADEQUATE; RBC MORPHOLOGY COMMENT NORMO-CYTIC/CHROMIC; SEGMENTED NEUTROPHILS % (MAN) 87 % (42-78); TOTAL CELLS COUNTED 100
[2018-05-09] MEDS ORDERED: NORMAL SALINE 500 ML IV ONE (15:54)
[2018-05-09] MEDS ORDERED: CEFTRIAXONE 1 GM/D5W RTU 1 GM/50 ML RTUPB IV ONE (15:54)
--- NOTE | 2018-05-09 16:28 | RADIOLOGY REPORT (SQ) ---
EXAM DESCRIPTION: CT ABD/PELVIS WITH IV ONLY COMPLETED DATE/TIME: 05/09/2018 4:07 pm REASON FOR STUDY: ABDOMINAL PAIN COMPARISON: 01/14/2018 TECHNIQUE: CT scan of the abdomen and pelvis performed using helical scanning technique with dynamic intravenous contrast injection. No oral contrast. Images reviewed with lung, soft tissue, and bone windows. Reconstructed coronal and sagittal MPR images reviewed. Delayed images for evaluation of the urinary system also acquired. All images stored on PACS. All CT scanners at this facility use dose modulation, iterative reconstruction, and/or weight based d osing when appropriate to reduce radiation dose to as low as reasonably achievable (ALARA). [facility]: Dose Right [facility]: CareDose [facility]: Dose Right [facility]: Teradose 4D [facility]: [employer] CONTRAST TYPE AND DOSE: 99 cc Omnipaque 350 RENAL FUNCTION: Creatinine 1.76 RADIATION DOSE: . LIMITATIONS: None. FINDINGS: LOWER CHEST: Right basilar ground-glass attenuation. Small hiatal hernia. Enlarged heart . Atherosclerotic coronary calcifications. LIVER: Normal size. No masses. No dilated ducts. SPLEEN: Normal size. No focal lesions. PANCREAS: No masses. No significant calcifications. No adjacent inflammation or peripancreatic fluid collections. Pancreatic duct not dilated. GALLBLADDER: No identified stones by CT criteria. No inflammatory changes to suggest cholecystitis. ADRENAL GLANDS:Stable nodular thickening of the left adrenal gland measuring up to 3.0 x 1.6 cm dunia red to CT dated 03/17/2017. RIGHT KIDNEY AND URETER: No solid masses. No significant calcifications. Moderate hydroureteronep hrosis to the level of the urinary bladder. Nonspecific perinephric stranding. LEFT KIDNEY AND URETER: No solid masses. Moderate hydroureteronephrosis to the level of the urinary bladder. Nonspecific perinephric stranding. No significant calcifications. AORTA AND VESSELS: Aortoiliac atherosclerosis. Unchanged mild fusiform dilation of the infrarenal ao rta measuring up to 3.1 cm. Patent celiac, SMA, bilateral renals and ANGELA with scattered ostial ather osclerosis RETROPERITONEUM: No discrete adenopathy. No hemorrhage. No mass. BOWEL AND PERITONEAL CAVITY: No evidence of intestinal obstruction. No focal bowel wall thickening. Scattered colonic diverticula. APPENDIX: Normal. PELVIS: Distended urinary bladder with mild diffuse wall thickening and perivesicular stranding. Sca ttered prostate calcifications. ABDOMINAL WALL: Midline hernia containing a knuckle of small bowel. No evidence of intestinal obstru ction. No soft tissue masses. BONES: No acute bony abnormality. No suspicious osseous lesions. OTHER: No other significant finding. IMPRESSION: 1. Mild right basilar ground-glass attenuation possibly atelectasis or infection. 2. Distended urinary bladder with associated moderate bilateral hydroureteronephrosis likely seconda ry to outlet obstruction. Mild circumferential bladder wall thickening with perivesicular stranding likely secondary to cystitis. Recommend correlation with UA. 3. Small hiatal hernia. TECHNICAL DOCUMENTATION: JOB ID: [id number] Quality ID # [id number]: Final reports with documentation of one or more dose reduction techniques (e.g., Au tomated exposure control, adjustment of the mA and/or kV according to patient size, use of iterative reconstruction technique) 2010 [employer]- All Rights Reserved Reading location - IP/workstation name: [email or web address]
[2018-05-09] MEDS ORDERED: LIDOCAINE 2% URO-JET 5 ML KIT MM ONE (16:53)
[2018-05-09 17:07] LABS: INTERNATIONAL RATION (INR) 1.07; PARTIAL THROMBOPLASTIN TIME 29.3 SEC (23.5-35.8); PROTHROMBIN TIME 14.4 SEC (11.4-15.4)
--- NOTE | 2018-05-09 17:45 | RADIOLOGY REPORT (SQ) ---
EXAM DESCRIPTION: CHEST SINGLE VIEW COMPLETED DATE/TIME: 05/09/2018 5:33 pm REASON FOR STUDY: hypoxia after vomiting COMPARISON: None. EXAM PARAMETERS: NUMBER OF VIEWS: One view. TECHNIQUE: Single frontal radiographic view of the chest acquired. RADIATION DOSE: NA LIMITATIONS: None. FINDINGS: LUNGS AND PLEURA: Increased density in the left base partial silhouetting of the costophre kelsey angle. Right lung is clear. MEDIASTINUM AND HILAR STRUCTURES: No masses. Contour normal. HEART AND VASCULAR STRUCTURES: Cardiomegaly. Normal vasculature. BONES: No acute findings. HARDWARE: None in the chest. OTHER: No other significant finding. IMPRESSION: Atelectasis or early pneumonia left lower lobe. TECHNICAL DOCUMENTATION: JOB ID: [id number] [employer]- All Rights Reserved Reading location - IP/workstation name: [email or web address]
[2018-05-09] MEDS ORDERED: PANTOPRAZOLE SODIUM 40 MG VIAL IV ONE (18:27)
[2018-05-09] MEDS ORDERED: ONDANSETRON 4 MG TAB.RAPDIS PO PRN (19:24)
[2018-05-09] MEDS ORDERED: MAG HYDROX/AL HYDROX/SIMETH SUSP 30 ML UDCUP PO PRN (19:24)
[2018-05-09] MEDS ORDERED: ONDANSETRON HCL INJ/PF 4 MG/2 ML SDV IV PRN (19:24)
[2018-05-09] MEDS ORDERED: MAGNESIUM HYDROXIDE SUSP 30 ML UDCUP PO PRN (19:24)
[2018-05-09] MEDS ORDERED: NALBUPHINE HCL INJ 10 MG/1 ML AMPULE IV PRN (19:31)
[2018-05-09] MEDS ORDERED: ACETAMINOPHEN 650 MG SUPP.RECT PR PRN (19:31)
[2018-05-09] MEDS ORDERED: ALBUTEROL SULFATE 0.083% NEB 2.5 MG/3 ML AMPUL NEB PRN (19:31)
[2018-05-09] MEDS ORDERED: ACETAMINOPHEN 325 MG TABLET PO PRN (19:31)
--- NOTE | 2018-05-09 19:39 | PDOC CONSULTATION ---
Consultation Consult Date: 05/09/18 Attending physician:: ORQUIDEA OLIVER Consult reason:: coffee ground emesis History of Present Illness Admission Date/PCP: GRICELDA RYAN MD History of Present Illness: JESENIA LÓPEZ is a 78 year old male Patient was sent to ED apparently pulled out pugh, admitted for sepsis, however has coffee ground emesis patient has negative CT for intra-abdominal etiology patient is in a home, family is with him he is being admitted for antibiotics will need EGD watch H/H transfuse as necessary rule out GI bleed although initial H/H is stable he will be placed on a Protonix drip 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, Myocardial Infarction Denies: DVT, Pulmonary Embolism Pulmonary Medical History: Reports: Chronic Obstructive Pulmonary Disease (COPD) Denies: Tuberculosis Neurological Medical History: Reports: Seizures - Last episode April 2016 GI Medical History: Reports: Diverticulitis, Hiatal Hernia Denies: Cirrhosis, Gastroesophageal Reflux Disease, Hepatitis Musculoskeltal Medical History: Denies: Arthritis Psychiatric Medical History: Denies: Bipolar Disorder, Dementia, Depression Past Surgical History Past Surgical History: Reports: Coronary Stent Social History Smoking Status: Unknown if Ever Smoked Frequency of Alcohol Use: None Hx Recreational Drug Use: No Drugs: None Hx Prescription Drug Abuse: No Family History Family History: Reviewed & Not Pertinent, Hypertension Parental Family History Reviewed: Yes Children Family History Reviewed: Unknown Sibling(s) Family History Reviewed.: Unknown Medication/Allergy Home Medications: Albuterol Sulfate [Ventolin HFA MDI 18 GM] 2 puff PO Q4HP PRN 02/12/17 Aspirin [Aspirin 325 mg Tablet] 325 mg PO DAILY 02/12/17 Atorvastatin Calcium [Lipitor 40 mg Tablet] 40 mg PO Q12 02/12/17 Docusate Sodium [Colace 100 mg Capsule] 100 mg PO BID 02/12/17 Ferrous Sulfate [Feosol 325 mg Tablet] 325 mg PO Q12 02/12/17 Finasteride [Proscar 5 mg Tablet] 5 mg PO DAILY 02/12/17 Fluticasone Propionate [Flonase Nasal [place] 50 Mcg/[place] 16 gm] 1 spray NAREB DAILY 02/12/17 Furosemide [Lasix 20 mg Tablet] 20 mg PO DAILY 02/12/17 Phenobarbital [Phenobarbital 64.8 mg Tablet] 64.8 mg PO Q12 02/12/17 Quetiapine Fumarate [Seroquel 25 mg Tablet] 25 mg PO Q8 02/12/17 Tamsulosin HCl [Flomax 0.4 mg Cap.sr] 0.4 mg PO DAILY 02/12/17 Umeclidinium Brm/Vilanterol Tr [Anoro Ellipta 62.5-25 Mcg INH] 1 puff IH DAILY 02/12/17 Donepezil HCl [Aricept 5 mg Tablet] 5 mg PO DAILY 08/30/17 Metoprolol Succinate [Toprol Xl 25 mg Tab.sr] 25 mg PO DAILY 30 Days #30 tab.sr.24h 09/04/17 Sennosides [Senna Laxative] 17.2 mg PO BID 30 Days #60 09/04/17 Cyanocobalamin (Vitamin B-12) [Vitamin B-12 Inj 1000 Mcg/1 ml Vial] 1,000 mcg IM .MONTHLY 02/26/18 Amox Tr/Potassium Clavulanate [Augmentin "500" Tablet] 1 tab PO Q8 5 Days #15 tablet 03/07/18 Docusate Sodium [Colace 100 mg Capsule] 100 mg PO BID capsule 03/07/18 Donepezil HCl [Aricept 5 mg Tablet] 5 mg PO QHS tablet 03/07/18 Psyllium Seed [Metamucil-Sf Powder 5.85 gm Packet] 1 packet PO DAILY packet 03/07/18 Tiotropium [place] [Spiriva Handihaler 5 Cap/Kit (18 Mcg/Cap)] 1 cap IH DAILY 30 Days #1 kit 03/07/18 Cephalexin Monohydrate [Keflex 500 mg Capsule] 500 mg PO Q6H 7 Days capsule 04/06/18 Allergies/Adverse Reactions: No Known Allergies Allergy (Verified 08/30/17 02:57) Review of Systems Constitutional: ABSENT: fever(s), headache(s), night sweats Eyes: ABSENT: visual disturbances Ears: ABSENT: hearing changes Nose, Mouth, and Throat: ABSENT: mouth pain Cardiovascular: ABSENT: orthropnea, palpitations Respiratory: ABSENT: hemoptysis Gastrointestinal: PRESENT: coffee ground emesis, hematemesis, nausea, vomiting Genitourinary: ABSENT: dysuria Musculoskeletal: ABSENT: deformity Integumentary: ABSENT: lesions Neurological: ABSENT: syncope, tingling, tremor(s) Endocrine: ABSENT: polydipsia, polyphagia, polyuria Hematologic/Lymphatic: ABSENT: easy bruising Physical Exam Vital Signs: Temp Pulse Resp BP Pulse Ox 100.1 F 116 H 20 162/83 H 94 05/09/18 17:26 05/09/18 13:42 05/09/18 13:42 05/09/18 13:42 05/09/18 13:42 Intake & Output 05/08/18 05/09/18 05/10/18 06:59 06:59 06:59 Intake Total 550 Balance 550 Weight 89.3 kg General appearance: PRESENT: well-developed, well-nourished Head exam: PRESENT: atraumatic, normocephalic Eye exam: PRESENT: EOMI, PERRLA. ABSENT: periorbital swelling, scleral icterus Mouth exam: PRESENT: neck supple Throat exam: ABSENT: tonsillar exudate, tonsillogmegaly Neck exam: ABSENT: meningismus, thyromegaly Respiratory exam: PRESENT: symmetrical, unlabored Cardiovascular exam: PRESENT: irregular rhythm, RRR GI/Abdominal exam: PRESENT: soft. ABSENT: Torrez's sign, rebound, rigid Extremities exam: ABSENT: joint swelling Musculoskeletal exam: PRESENT: full ROM Neurological exam: PRESENT: awake Focused psych exam: ABSENT: restlessness Skin exam: ABSENT: mottled, petechiae, urticaria, vesicles Results Laboratory Results: 05/09/18 15:00 05/09/18 15:00 05/09/18 05/09/18 05/09/18 15:00 15:00 15:00 WBC 22.8 H RBC 3.92 L Hgb 12.0 L Hct 35.6 L MCV 91 MCH 30.5 MCHC 33.6 RDW 13.8 Plt Count 226 Seg Neutrophils % Not Reportable Lymphocytes % Not Reportable Monocytes % Not Reportable Eosinophils % Not Reportable Basophils % Not Reportable Absolute Neutrophils Not Reportable Absolute Lymphocytes Not Reportable Absolute Monocytes Not Reportable Absolute Eosinophils Not Reportable Absolute Basophils Not Reportable Sodium 143.8 Potassium 3.7 Chloride 107 Carbon Dioxide 24 Anion Gap 13 BUN 25 H Creatinine 1.76 H Est GFR ( Amer) 45 L Est GFR (Non-Af Amer) 38 L Glucose 133 H Lactic Acid 3.8 H Calcium 9.6 Total Bilirubin 0.3 AST 31 ALT 22 Alkaline Phosphatase 122 Total Protein 7.6 Albumin 4.6 Urine Color Urine Appearance Urine pH Ur Specific [place] Urine Protein Urine Glucose (UA) Urine Ketones Urine Blood Urine Nitrite Ur Leukocyte Esterase Urine WBC (Auto) Urine RBC (Auto) 05/09/18 15:07 WBC RBC Hgb Hct MCV MCH MCHC RDW Plt Count Seg Neutrophils % Lymphocytes % Monocytes % Eosinophils % Basophils % Absolute Neutrophils Absolute Lymphocytes Absolute Monocytes Absolute Eosinophils Absolute Basophils Sodium Potassium Chloride Carbon Dioxide Anion Gap BUN Creatinine Est GFR ( Amer) Est GFR (Non-Af Amer) Glucose Lactic Acid Calcium Total Bilirubin AST ALT Alkaline Phosphatase Total Protein Albumin Urine Color RED Urine Appearance TURBID Urine pH 8.0 Ur Specific [place] 1.014 Urine Protein >=500 H Urine Glucose (UA) NEGATIVE Urine Ketones NEGATIVE Urine Blood MODERATE H Urine Nitrite NEGATIVE Ur Leukocyte Esterase MODERATE H Urine WBC (Auto) >182 Urine RBC (Auto) >182 05/09/18 05/09/18 15:00 15:00 Troponin I 0.076 NT-Pro-B Natriuret Pep 8450 H Impressions: Abdomen/Pelvis CT 05/09/18 00:00 IMPRESSION: 1. Mild right basilar ground-glass attenuation possibly atelectasis or infection. 2. Distended urinary bladder with associated moderate bilateral hydroureteronephrosis likely secondary to outlet obstruction. Mild cir cumferential bladder wall thickening with perivesicular stranding likely secondary to cystitis. Recommend correlation with UA. 3. Small hiatal hernia. Chest X-Ray 05/09/18 17:05 IMPRESSION: Atelectasis or early pneumonia left lower lobe. Assessment & Plan - Diagnosis (1) Coffee ground emesis Plan: patient is being admitted for other medical problems had an episode of coffee ground emesis has a hiatal hernia on CT scan will lei EGD Risks, benefits and alternatives are discussed family to sign consent transfuse as necessary start on PPI drip, convert to oral following EGD further recommendations to follow discussed case with ED - Time Time Spent: 50 to 70 Minutes
[2018-05-09] MEDS ORDERED: POTASSI CL 20 MEQ/D5-1/2NS 1L 1,000 ML IV PRN (19:45)
[2018-05-09] MEDS ORDERED: MEROPENEM 1 GM VIAL IV SCH (20:00)
[2018-05-09] MEDS: NORMAL SALINE 1000 ML 1,000 ML IV PRN (20:27)
--- NOTE | 2018-05-09 21:43 | EKG REPORT ---
SEVERITY:- ABNORMAL ECG - SINUS TACHYCARDIA MULTIPLE VENTRICULAR PREMATURE COMPLEXES CONSIDER POSTERIOR INFARCT NONSPECIFIC REPOL ABNORMALITY, LATERAL LEADS : Confirmed by: Sherrie Nunn 09-May-2018 21:42:31
[2018-05-09] MEDS ORDERED: FAMOTIDINE 20 MG TABLET PO SCH (22:00)
[2018-05-09 22:26] LABS: CREATINE KINASE MB 2.83 ng/mL (<4.55)
[2018-05-09 22:33] LABS: TROPONIN I 0.11 ng/mL
[2018-05-09] MEDS: TORSEMIDE 20 MG TABLET PO SCH (22:36)
[2018-05-09] MEDS: PHENOBARBITAL 64.8 MG TABLET PO SCH (22:36)
[2018-05-09] MEDS: FAMOTIDINE 20 MG TABLET PO SCH (22:36)
[2018-05-09] MEDS: MEROPENEM 1 GM in NORMAL SALINE 50 ML IV SCH (22:37)
[2018-05-09] MEDS: QUETIAPINE FUMARATE 25 MG TABLET PO SCH (22:37)
[2018-05-09] MEDS: HEPARIN SOD (PORCINE) 5,000 UNIT/ML 1 ML SYRINGE SUBCUT SCH (22:38)
--- NOTE | 2018-05-10 03:06 | PDOC H&P ---
History of Present Illness Admission Date/PCP: GRICELDA RYAN MD Patient complains of: Anderson catheter problem History of Present Illness: JESENIA LÓPEZ is a 78 year old male who presented to the emergency room with a Anderson catheter problem. It was reported to the emergency room staff that the patient had apparently pulled out his Anderson catheter while residing in an assisted living facility. Patient's catheter evidently was self removed sometime earlier on the day of admission and when discovered he was sent to the emergency room for replacement of the Anderson catheter. Patient has significant dementia and is unable to contribute to his history or medical care in any meaningful fashion. He does have a history of frequent urinary tract infections secondary to his chronic indwelling Anderson catheter and as reported to the emergency room staff by his family members this is his usual state of demeanor when he has an infection in his urinary tract. They aver that he is generally talkative and pleasant and oriented at least to himself. In the emergency room he was found to have extremely malodorous urine with a positive urinalysis for red and white blood cells. Additionally he was found to have a slightly elevated BUN and creatinine compared to previous measurements and a white blood count of 22,000. He was also noted to have a elevated temperature and as such met SIRS criteria. He was therefore hospitalized and initiated on antibiotic th erapy with meropenem pending urine and blood culture results. Past Medical History Past Medical History: Past medical history is obtained primarily from previous records available at the time of my evaluation. Patient is not an adequate historian to provide past medical history, social history, family medical history, surgical history or a meaningful review of systems. 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, Coronary Artery Disease, Myocardial Infarction Denies: DVT, Pulmonary Embolism Pulmonary Medical History: Reports: Chronic Obstructive Pulmonary Disease (COPD) Denies: Tuberculosis EENT Medical History: Reports: None Neurological Medical History: Reports: Seizures - Last episode April 2016 Denies: Multiple Sclerosis Endocrine Medical History: Denies: Diabetes Mellitus Type 1, Diabetes Mellitus Type 2 Renal/ Medical History: Denies: Chronic Kidney Disease, Nephrolithiasis Malignancy Medical History: Reports: None GI Medical History: Reports: Diverticulitis, Gastroesophageal Reflux Disease, Hiatal Hernia Denies: Cirrhosis, Hepatitis Musculoskeltal Medical History: Denies: Arthritis, Gout Skin Medical History: Denies: Eczema, Psoriasis Psychiatric Medical History: Reports: Dementia Denies: Alcohol Dependency, Substance Abuse, Tobacco Dependency Traumatic Medical History: Reports: None Hematology: Denies: Anemia, Bleeding Tendencies Infectious Medical History: Reports: None Past Surgical History Past Surgical History: Past medical history is obtained primarily from previous records available at the time of my evaluation. Patient is not an adequate historian to provide past medical history, social history, family medical history, surgical history or a meaningful review of systems. Past Surgical History: Reports: Cardiac Catheterization, Coronary Stent Social History Information Source: [facility] Records Lives with: [facility] Smoking Status: Former Smoker Frequency of Alcohol Use: None Hx Recreational Drug Use: No Drugs: None Hx Prescription Drug Abuse: No Past Social History Note: Past medical history is obtained primarily from previous records available at the time of my evaluation. Patient is not an adequate historian to provide past medical history, social history, family medical history, surgical history or a meaningful review of systems. Family History Family History: Hypertension Family History: Past medical history is obtained primarily from previous records available at the time of my evaluation. Patient is not an adequate historian to provide past medical history, social history, family medical history, surgical history or a meaningful review of systems. Parental Family History Reviewed: Yes Children Family History Reviewed: No Sibling(s) Family History Reviewed.: Yes Medication/Allergy Home Medications: Albuterol Sulfate [Ventolin HFA MDI 18 GM] 2 puff PO Q4HP PRN 02/12/17 Aspirin [Aspirin 325 mg Tablet] 325 mg PO DAILY 02/12/17 Atorvastatin Calcium [Lipitor 40 mg Tablet] 40 mg PO Q12 02/12/17 Docusate Sodium [Colace 100 mg Capsule] 100 mg PO BID 02/12/17 Ferrous Sulfate [Feosol 325 mg Tablet] 325 mg PO Q12 02/12/17 Finasteride [Proscar 5 mg Tablet] 5 mg PO DAILY 02/12/17 Fluticasone Propionate [Flonase Nasal [place] 50 Mcg/[place] 16 gm] 1 spray NASL DAILY 02/12/17 Furosemide [Lasix 20 mg Tablet] 20 mg PO DAILY 02/12/17 Phenobarbital [Phenobarbital 64.8 mg Tablet] 64.8 mg PO Q12 02/12/17 Quetiapine Fumarate [Seroquel 25 mg Tablet] 25 mg PO Q8 02/12/17 Tamsulosin HCl [Flomax 0.4 mg Cap.sr] 0.4 mg PO DAILY 02/12/17 Umeclidinium Brm/Vilanterol Tr [Anoro Ellipta 62.5-25 Mcg INH] 1 puff IH DAILY 02/12/17 Metoprolol Succinate [Toprol Xl 25 mg Tab.sr] 25 mg PO DAILY 30 Days #30 t ab.sr.24h 09/04/17 Sennosides [Senna Laxative] 17.2 mg PO BID 30 Days #60 09/04/17 Cyanocobalamin (Vitamin B-12) [Vitamin B-12 Inj 1000 Mcg/1 ml Vial] 1,000 mcg IM [id number] 02/26/18 Donepezil HCl [Aricept 5 mg Tablet] 5 mg PO QHS tablet 03/07/18 Psyllium Seed [Metamucil-Sf Powder 5.85 gm Packet] 1 packet PO DAILY packet 03/07/18 Tiotropium [place] [Spiriva Handihaler 5 Cap/Kit (18 Mcg/Cap)] 1 cap IH DAILY 30 Days #1 kit 03/07/18 Allergies/Adverse Reactions: No Known Allergies Allergy (Verified 08/30/17 02:57) Review of Systems ROS unobtainable: Due to mental status - Past medical history is obtained primarily from previous records available at the time of my evaluation. Patient is not an adequate historian to provide past medical history, social history, family medical history, surgical history or a meaningful review of systems. Current mental status dementia/encephalopathy. Physical Exam Vital Signs: Temp Pulse Resp BP Pulse Ox 100.1 F 116 H 20 162/83 H 94 05/09/18 17:26 05/09/18 13:42 05/09/18 13:42 05/09/18 13:42 05/09/18 13:42 Intake & Output 05/07/18 05/08/18 05/09/18 23:59 23:59 23:59 Intake Total 500 Balance 500 Weight 89.3 kg General appearance: PRESENT: mild distress - Making moaning sounds as if he might be in pain, obese, other - Eyes open to verbal stimuli without speech or change in expression. Head exam: PRESENT: atraumatic, normocephalic Eye exam: PRESENT: conjunctiva pink, EOMI. ABSENT: scleral icterus Ear exam: PRESENT: normal external ear exam. ABSENT: bleeding, drainage Mouth exam: PRESENT: dry mucosa, neck supple Neck exam: ABSENT: thyromegaly, tracheal deviation Respiratory exam: PRESENT: decreased breath sounds - Breath sounds decreased at the bilateral bases with dullness to percussion in the same area., rales - Mild fine rales noted at the bilateral bases., symmetrical, unlabored Cardiovascular exam: PRESENT: irregular rhythm - Irregularly irregular rate and rhythm. ABSENT: clicks, gallop, rubs Pulses: PRESENT: normal radial pulses, normal dorsalis pedis pul Vascular exam: PRESENT: normal capillary refill. ABSENT: pallor GI/Abdominal exam: PRESENT: normal bowel sounds, soft Rectal exam: PRESENT: deferred Extremities exam: ABSENT: joint swelling, pedal edema Musculoskeletal exam: ABSENT: deformity, dislocation Neurological exam: PRESENT: awake, other - Opens eyes to verbal stimuli but does not change expression. Makes grunting sounds and groans from time to time. Psychiatric exam: PRESENT: other - Unable to determine due to acute en cephalopathy. Skin exam: PRESENT: dry, intact, warm. ABSENT: jaundice, rash, urticaria Results Laboratory Results: 05/09/18 15:00 05/09/18 15:00 05/09/18 05/09/18 05/09/18 15:00 15:00 15:00 WBC 22.8 H RBC 3.92 L Hgb 12.0 L Hct 35.6 L MCV 91 MCH 30.5 MCHC 33.6 RDW 13.8 Plt Count 226 Seg Neutrophils % Not Reportable Lymphocytes % Not Reportable Monocytes % Not Reportable Eosinophils % Not Reportable Basophils % Not Reportable Absolute Neutrophils Not Reportable Absolute Lymphocytes Not Reportable Absolute Monocytes Not Reportable Absolute Eosinophils Not Reportable Absolute Basophils Not Reportable Sodium 143.8 Potassium 3.7 Chloride 107 Carbon Dioxide 24 Anion Gap 13 BUN 25 H Creatinine 1.76 H Est GFR ( Amer) 45 L Est GFR (Non-Af Amer) 38 L Glucose 133 H Lactic Acid 3.8 H Calcium 9.6 Total Bilirubin 0.3 AST 31 ALT 22 Alkaline Phosphatase 122 Total Protein 7.6 Albumin 4.6 Urine Color Urine Appearance Urine pH Ur Specific [place] Urine Protein Urine Glucose (UA) Urine Ketones Urine Blood Urine Nitrite Ur Leukocyte Esterase Urine WBC (Auto) Urine RBC (Auto) 05/09/18 15:07 WBC RBC Hgb Hct MCV MCH MCHC RDW Plt Count Seg Neutrophils % Lymphocytes % Monocytes % Eosinophils % Basophils % Absolute Neutrophils Absolute Lymphocytes Absolute Monocytes Absolute Eosinophils Absolute Basophils Sodium Potassium Chloride Carbon Dioxide Anion Gap BUN Creatinine Est GFR ( Amer) Est GFR (Non-Af Amer) Glucose Lactic Acid Calcium Total Bilirubin AST ALT Alkaline Phosphatase Total Protein Albumin Urine Color RED Urine Appearance TURBID Urine pH 8.0 Ur Specific [place] 1.014 Urine Protein >=500 H Urine Glucose (UA) NEGATIVE Urine Ketones NEGATIVE Urine Blood MODERATE H Urine Nitrite NEGATIVE Ur Leukocyte Esterase MODERATE H Urine WBC (Auto) >182 Urine RBC (Auto) >182 05/09/18 05/09/18 15:00 15:00 Troponin I 0.076 NT-Pro-B Natriuret Pep 8450 H Impressions: Abdomen/Pelvis CT 05/09/18 00:00 IMPRESSION: 1. Mild right basilar ground-glass attenuation possibly atelectasis or infection. 2. Distended urinary bladder with associated moderate bilateral hydroureteronephrosis likely secondary to outlet obstruction. Mild circumferential bladder wall thickening with perivesicular stranding likely secondary to cystitis. Recommend correlation with UA. 3. Small hiatal hernia. Chest X-Ray 05/09/18 17:05 IMPRESSION: Atelectasis or early pneumonia left lower lobe. Assessment & Plan - Diagnosis (1) SIRS (systemic inflammatory response syndrome) Is this a current diagnosis for this admission?: Yes Plan: Patient will be treated with IV fluid support and other supportive therapy as required. Additionally he will receive broad-spectrum antibiotics in the form of IV meropenem pending the results of urine and blood cultures to enable more specific therapy. (2) UTI (urinary tract infection) Qualifiers: Urinary tract infection type: site unspecified Hematuria presence: with hematuria Qualified Code(s): N39.0 - Urinary tract infection, site not specified; R31.9 - Hematuria, unspecified; R31.9 - Hematuria, unspecified Is this a current diagnosis for this admission?: Yes Plan: Patient will be treated with replacement of his Anderson catheter to allow for adequate drainage and intravenous antibiotics utilizing meropenem initially pending urine culture results. (3) Acute encephalopathy Is this a current diagnosis for this admission?: Yes Plan: Family indicates that he is normally alert and conversant though possibly somewhat demented he is at least oriented to himself and to some degree oriented to person. His current condition represents an obvious change in his mental status. His mental status will be observed clinically during his hospital course for improvement with treatment. Further evaluation can be undertaken as appropriate. (4) Coffee ground emesis Is this a current diagnosis for this admission?: Yes Plan: Patient had a gastrocult positive coffee-ground emesis x1 in the emergency room. He will have a gastroenterology consult with Dr. Saravia and will most likely have an EGD performed during this hospitalization. (5) Combined systolic and diastolic congestive heart failure Is this a current diagnosis for this admission?: Yes Plan: Patient's current cardiac medications will be continued during his hospital course with changes made only as required. (6) Seizure disorder Is this a current diagnosis for this admission?: Yes Plan: Patient will be continued on his usual medications for his seizure disorder with appropriate laboratory levels obtained to evaluate therapy. (7) DNR (do not resuscitate) Is this a current diagnosis for this admission?: Yes Plan: Patient has a permanent DNR status document and this request will be honored. - Time Time Spent: 30 to 50 Minutes Critical Time spent with patient: Less than 15 minutes Medications reviewed and adjusted accordingly: Yes Anticipated discharge: SNF, Other - Inpatient Certification Based on my medical assessment, after consideration of the patient's comorbidities, presenting symptoms, or acuity I expect that the services needed warrant INPATIENT care.: Yes I certify that my determination is in accordance with my understanding of Medic are's requirements for reasonable and necessary INPATIENT services [42 CFR 412.3e].: Yes Medical Necessity: Need Close Monitoring Due to Risk of Patient Decompensation, Need For IV Fluids, Need for IV Antibiotics, Risk of Complication if Not Cared For in Hospital
[2018-05-10 05:54] LABS: HEMATOCRIT 31.4 % (37.9-51.0); HEMOGLOBIN 10.6 g/dL (13.5-17.0); MEAN CORPUSCULAR HEMOGLOBIN 30.9 pg (27.0-33.4); MEAN CORPUSCULAR HGB CONC 33.8 g/dL (32.0-36.0); MEAN CORPUSCULAR VOLUME 91 fl (80-97); PLATELET COUNT 200 10^3/uL (150-450); RED BLOOD COUNT 3.44 10^6/uL (4.35-5.55); RED CELL DISTRIBUTION WIDTH 14.1 % (11.5-14.0); WHITE BLOOD COUNT 19.5 10^3/uL (4.0-10.5)
[2018-05-10] MEDS: HEPARIN SOD (PORCINE) 5,000 UNIT/ML 1 ML SYRINGE SUBCUT SCH ×3 (06:09→21:11)
[2018-05-10] MEDS: QUETIAPINE FUMARATE 25 MG TABLET PO SCH ×3 (06:10→21:12)
[2018-05-10 06:14] LABS: ANION GAP 10 (5-19); BLOOD UREA NITROGEN 27 mg/dL (7-20); CALCIUM 8.7 mg/dL (8.4-10.2); CARBON DIOXIDE 26 mmol/L (22-30); CHLORIDE 108 mmol/L (98-107); GLUCOSE 101 mg/dL (75-110); SODIUM 144.1 mmol/L (137-145)
[2018-05-10 06:24] LABS: CREATINE KINASE MB 4.67 ng/mL (<4.55)
[2018-05-10 06:27] LABS: TROPONIN I 0.099 ng/mL
[2018-05-10 06:30] LABS: FREE T3 2.55 pg/mL (2.77-5.27); FREE T4 (FREE THYROXINE) 0.98 ng/dL (0.78-2.19)
[2018-05-10 06:43] LABS: THYROID STIMULATING HORMONE 0.84 uIU/mL (0.47-4.68)
[2018-05-10 07:01] LABS: ABSOLUTE LYMPHOCYTES# (MANUAL) 0.6 10^3/uL (0.5-4.7); ABSOLUTE NEUTROPHILS# (MANUAL) 17.9 10^3/uL (1.7-8.2); BASOPHILS % (MANUAL) 0 % (0-2); EOSINOPHILS % (MANUAL) 0 % (0-6); LYMPHOCYTES % (MANUAL) 3 % (13-45); MONOCYTES % (MANUAL) 5 % (3-13); SEGMENTED NEUTROPHILS % (MAN) 92 % (42-78); TOTAL CELLS COUNTED 100
[2018-05-10 07:07] LABS: ANISOCYTOSIS SLIGHT; PLATELET COMMENT ADEQUATE; TOXIC GRANULATION SLIGHT
--- NOTE | 2018-05-10 07:55 | PDOC PROGRESS REPORT ---
Subjective Progress Note for:: 05/10/18 Subjective:: patient remains in the ED has not been assigned to a room yet no hematemesis noted overnight DNR Hgb is stable will need EGD at some point Reason For Visit: URINARY TRACT INFECTION WITH CHRONIC INDWELLING Physical Exam Vital Signs: Temp Pulse Resp BP Pulse Ox 100.1 F 116 H 20 108/59 L 98 05/09/18 17:26 05/09/18 13:42 05/10/18 07:01 05/10/18 07:00 05/10/18 07:01 Intake & Output 05/09/18 05/10/18 05/11/18 06:59 06:59 06:59 Intake Total 1600 Balance 1600 Weight 89.3 kg General appearance: PRESENT: no acute distress Head exam: PRESENT: atraumatic, normocephalic Eye exam: PRESENT: EOMI, PERRLA. ABSENT: scleral icterus Mouth exam: PRESENT: neck supple Teeth exam: PRESENT: poor dentation Throat exam: ABSENT: tonsillar exudate, tonsillogmegaly Neck exam: ABSENT: meningismus, tenderness, thyromegaly Respiratory exam: PRESENT: symmetrical, tachypnea Cardiovascular exam: PRESENT: +S1, +S2 GI/Abdominal exam: PRESENT: soft. ABSENT: rebound, rigid, tenderness Extremities exam: ABSENT: joint swelling Musculoskeletal exam: PRESENT: full ROM Focused psych exam: ABSENT: restlessness Skin exam: PRESENT: normal color. ABSENT: mottled, pallor, urticaria, vesicles Results Laboratory Results: 05/10/18 05:25 05/10/18 05:25 05/09/18 05/09/18 05/09/18 15:00 15:00 15:00 WBC 22.8 H RBC 3.92 L Hgb 12.0 L Hct 35.6 L MCV 91 MCH 30.5 MCHC 33.6 RDW 13.8 Plt Count 226 Seg Neutrophils % Not Reportable Lymphocytes % Not Reportable Monocytes % Not Reportable Eosinophils % Not Reportable Basophils % Not Reportable Absolute Neutrophils Not Reportable Absolute Lymphocytes Not Reportable Absolute Monocytes Not Reportable Absolute Eosinophils Not Reportable Absolute Basophils Not Reportable Sodium 143.8 Potassium 3.7 Chloride 107 Carbon Dioxide 24 Anion Gap 13 BUN 25 H Creatinine 1.76 H Est GFR ( Amer) 45 L Est GFR (Non-Af Amer) 38 L Glucose 133 H Lactic Acid 3.8 H Calcium 9.6 Magnesium Total Bilirubin 0.3 AST 31 ALT 22 Alkaline Phosphatase 122 Total Protein 7.6 Albumin 4.6 TSH Free T4 Free T3 pg/mL Urine Color Urine Appearance Urine pH Ur Specific [place] Urine Protein Urine Glucose (UA) Urine Ketones Urine Blood Urine Nitrite Ur Leukocyte Esterase Urine WBC (Auto) Urine RBC (Auto) 05/09/18 05/09/18 05/10/18 15:07 19:15 00:24 WBC RBC Hgb Hct MCV MCH MCHC RDW Plt Count Seg Neutrophils % Lymphocytes % Monocytes % Eosinophils % Basophils % Absolute Neutrophils Absolute Lymphocytes Absolute Monocytes Absolute Eosinophils Absolute Basophils Sodium Potassium Chloride Carbon Dioxide Anion Gap BUN Creatinine Est GFR ( Amer) Est GFR (Non-Af Amer) Glucose Lactic Acid 3.1 H 1.1 Calcium Magnesium Total Bilirubin AST ALT Alkaline Phosphatase Total Protein Albumin TSH Free T4 Free T3 pg/mL Urine Color RED Urine Appearance TURBID Urine pH 8.0 Ur Specific [place] 1.014 Urine Protein >=500 H Urine Glucose (UA) NEGATIVE Urine Ketones NEGATIVE Urine Blood MODERATE H Urine Nitrite NEGATIVE Ur Leukocyte Esterase MODERATE H Urine WBC (Auto) >182 Urine RBC (Auto) >182 05/10/18 05/10/18 05/10/18 05:25 05:25 05:25 WBC 19.5 H RBC 3.44 L Hgb 10.6 L Hct 31.4 L MCV 91 MCH 30.9 MCHC 33.8 RDW 14.1 H Plt Count 200 Seg Neutrophils % Not Reportable Lymphocytes % Not Reportable Monocytes % Not Reportable Eosinophils % Not Reportable Basophils % Not Reportable Absolute Neutrophils Not Reportable Absolute Lymphocytes Not Reportable Absolute Monocytes Not Reportable Absolute Eosinophils Not Reportable Absolute Basophils Not Reportable Sodium 144.1 Potassium 4.0 Chloride 108 H Carbon Dioxide 26 Anion Gap 10 BUN 27 H Creatinine 1.18 Est GFR ( Amer) > 60 Est GFR (Non-Af Amer) > 60 Glucose 101 Lactic Acid Calcium 8.7 Magnesium 2.2 Total Bilirubin AST ALT Alkaline Phosphatase Total Protein Albumin TSH 0.84 Free T4 0.98 Free T3 pg/mL 2.55 L Urine Color Urine Appearance Urine pH Ur Specific [place] Urine Protein Urine Glucose (UA) Urine Ketones Urine Blood Urine Nitrite Ur Leukocyte Esterase Urine WBC (Auto) Urine RBC (Auto) 05/10/18 05:57 WBC RBC Hgb Hct MCV MCH MCHC RDW Plt Count Seg Neutrophils % Lymphocytes % Monocytes % Eosinophils % Basophils % Absolute Neutrophils Absolute Lymphocytes Absolute Monocytes Absolute Eosinophils Absolute Basophils Sodium Potassium Chloride Carbon Dioxide Anion Gap BUN Creatinine Est GFR ( Amer) Est GFR (Non-Af Amer) Glucose Lactic Acid 0.6 L Calcium Magnesium Total Bilirubin AST ALT Alkaline Phosphatase Total Protein Albumin TSH Free T4 Free T3 pg/mL Urine Color Urine Appearance Urine pH Ur Specific [place] Urine Protein Urine Glucose (UA) Urine Ketones Urine Blood Urine Nitrite Ur Leukocyte Esterase Urine WBC (Auto) Urine RBC (Auto) 05/09/18 05/09/18 05/09/18 15:00 15:00 21:40 Creatine Kinase 241 H CK-MB (CK-2) Troponin I 0.076 NT-Pro-B Natriuret Pep 8450 H 05/09/18 05/10/18 05/10/18 21:40 05:25 05:25 Creatine Kinase 273 H CK-MB (CK-2) 2.83 4.67 H Troponin I 0.110 0.099 NT-Pro-B Natriuret Pep Impressions: Abdomen/Pelvis CT 05/09/18 00:00 IMPRESSION: 1. Mild right basilar ground-glass attenuation possibly atelectasis or infection. 2. Distended urinary bladder with associated moderate bilateral hydroureteronephrosis likely secondary to outlet obstruction. Mild circumferential bladder wall thickening with perivesicular stranding likely secondary to cystitis. Recommend correlation with UA. 3. Small hiatal hernia. Chest X-Ray 05/09/18 17:05 IMPRESSION: Atelectasis or early pneumonia left lower lobe. Assessment & Plan - Diagnosis (1) Coffee ground emesis Is this a current diagnosis for this admission?: Yes Plan: will need EGD at some point, will schedule as available rule out peptic ulcer disease consent will need to be signed by family further recommendations to follow continue with PPI drip for now, keep NPO - Time Time Spent with patient: 15-24 minutes
[2018-05-10] MEDS ORDERED: SENNOSIDES 17.2 MG PO SCH (10:00)
[2018-05-10] MEDS ORDERED: (PENDING PHARMACY ID) (Umeclidinium Brm/Vilanterol Tr [Anoro Ellipta 62.5-25 Mcg Inh] 1 PU IH SCH (10:00)
[2018-05-10] MEDS: SPIRONOLACTONE 25 MG TABLET PO SCH (10:53)
[2018-05-10] MEDS: DOCUSATE SODIUM 100 MG CAPSULE PO SCH ×2 (10:54→18:07)
[2018-05-10] MEDS: TAMSULOSIN HCL 0.4 MG CAP.SR.24H PO SCH (10:54)
[2018-05-10] MEDS: PHENOBARBITAL 64.8 MG TABLET PO SCH ×2 (10:54→21:12)
[2018-05-10] MEDS: SENNOSIDES/DOCUSATE 8.6-50 MG 1 EACH TABLET PO SCH ×2 (10:55→18:07)
[2018-05-10] MEDS: METOPROLOL SUCCINATE 25 MG TAB.SR.24H PO SCH (10:55)
[2018-05-10] MEDS: LOSARTAN POTASSIUM 25 MG TABLET PO SCH (10:55)
[2018-05-10] MEDS: FINASTERIDE 5 MG TABLET PO SCH (10:56)
[2018-05-10 11:10] LABS: CREATINE KINASE MB 7.8 ng/mL (<4.55); TROPONIN I 0.083 ng/mL
[2018-05-10] MEDS: NORMAL SALINE 1000 ML 1,000 ML IV PRN (12:10)
[2018-05-10] MEDS: PSYLLIUM SEED-SF 5.85 GM PACKET PO SCH (12:51)
[2018-05-10] MEDS: MEROPENEM 1 GM in NORMAL SALINE 50 ML IV SCH ×2 (12:51→21:27)
[2018-05-10] MEDS: TIOTROPIUM BROMIDE DPI 5 CAP/KIT (18 MCG/CAP) IH SCH (12:52)
[2018-05-10] MEDS: NORMAL SALINE 100 ML with PANTOPRAZOLE SODIUM 80 MG IV PRN ×2 (18:08)
[2018-05-10] MEDS: FAMOTIDINE 20 MG TABLET PO SCH (21:12)
[2018-05-10] MEDS: TORSEMIDE 20 MG TABLET PO SCH (21:12)
[2018-05-11] MEDS: HEPARIN SOD (PORCINE) 5,000 UNIT/ML 1 ML SYRINGE SUBCUT SCH ×3 (05:27→21:10)
[2018-05-11] MEDS: QUETIAPINE FUMARATE 25 MG TABLET PO SCH ×3 (05:31→21:10)
[2018-05-11 05:44] LABS: ABSOLUTE EOSINOPHILS # (AUTO) 0.2 10^3/uL (0.0-0.6); ABSOLUTE LYMPHOCYTES (AUTO) 1.1 10^3/uL (0.5-4.7); ABSOLUTE MONOCYTES (AUTO) 0.8 10^3/uL (0.1-1.4); ABSOLUTE NEUT (AUTO) 9.2 10^3/uL (1.7-8.2); BASOPHILS % (AUTO) 0.4 % (0-2); EOSINOPHILS % (AUTO) 1.4 % (0-6); HEMATOCRIT 30.6 % (37.9-51.0); HEMOGLOBIN 10.2 g/dL (13.5-17.0); LYMPHOCYTES % (AUTO) 9.6 % (13-45); MEAN CORPUSCULAR HEMOGLOBIN 30.6 pg (27.0-33.4); MEAN CORPUSCULAR HGB CONC 33.3 g/dL (32.0-36.0); MEAN CORPUSCULAR VOLUME 92 fl (80-97); MONOCYTES % (AUTO) 7.1 % (3-13); PLATELET COUNT 155 10^3/uL (150-450); RED BLOOD COUNT 3.34 10^6/uL (4.35-5.55); RED CELL DISTRIBUTION WIDTH 14.2 % (11.5-14.0); SEGMENTED NEUTROPHILS % (AUTO) 81.5 % (42-78); TOTAL CELLS COUNTED % (AUTO) 100 %; WHITE BLOOD COUNT 11.2 10^3/uL (4.0-10.5)
--- NOTE | 2018-05-11 06:02 | PDOC PROGRESS REPORT ---
Subjective Progress Note for:: 05/10/18 Subjective:: Patient is still feeling poorly. Still with slight confusion. Reason For Visit: URINARY TRACT INFECTION WITH CHRONIC INDWELLING catheter Coffee-ground emesis Physical Exam Vital Signs: Temp Pulse Resp BP Pulse Ox 97.6 F 93 18 111/75 98 05/10/18 23:00 05/10/18 23:00 05/10/18 23:00 05/10/18 23:00 05/10/18 23:00 Intake & Output 05/09/18 05/10/18 05/11/18 06:59 06:59 06:59 Intake Total 1600 580 Output Total 3950 Balance 1600 -3370 Weight 89.3 kg 87.3 kg General appearance: PRESENT: mild distress Head exam: PRESENT: normocephalic Eye exam: PRESENT: conjunctiva pink Mouth exam: PRESENT: moist, other Respiratory exam: PRESENT: symmetrical, unlabored. ABSENT: accessory muscle use, crackles, rales, rhonchi Cardiovascular exam: PRESENT: RRR, +S1, +S2 GI/Abdominal exam: PRESENT: distended - Mild, soft, tenderness - Suprapubic area. ABSENT: guarding Neurological exam: PRESENT: alert, awake, oriented to person, oriented to place, oriented to situation Psychiatric exam: PRESENT: anxious, flat affect Results Laboratory Results: 05/10/18 05/10/18 05/10/18 05:25 05:25 05:25 WBC 19.5 H RBC 3.44 L Hgb 10.6 L Hct 31.4 L MCV 91 MCH 30.9 MCHC 33.8 RDW 14.1 H Plt Count 200 Seg Neutrophils % Not Reportable Lymphocytes % Not Reportable Monocytes % Not Reportable Eosinophils % Not Reportable Basophils % Not Reportable Absolute Neutrophils Not Reportable Absolute Lymphocytes Not Reportable Absolute Monocytes Not Reportable Absolute Eosinophils Not Reportable Absolute Basophils Not Reportable Sodium 144.1 Potassium 4.0 Chloride 108 H Carbon Dioxide 26 Anion Gap 10 BUN 27 H Creatinine 1.18 Est GFR ( Amer) > 60 Est GFR (Non-Af Amer) > 60 Glucose 101 Lactic Acid Calcium 8.7 Magnesium 2.2 TSH 0.84 Free T4 0.98 Free T3 pg/mL 2.55 L 05/10/18 05:57 WBC RBC Hgb Hct MCV MCH MCHC RDW Plt Count Seg Neutrophils % Lymphocytes % Monocytes % Eosinophils % Basophils % Absolute Neutrophils Absolute Lymphocytes Absolute Monocytes Absolute Eosinophils Absolute Basophils Sodium Potassium Chloride Carbon Dioxide Anion Gap BUN Creatinine Est GFR ( Amer) Est GFR (Non-Af Amer) Glucose Lactic Acid 0.6 L Calcium Magnesium TSH Free T4 Free T3 pg/mL 05/09/18 05/09/18 05/09/18 15:00 15:00 21:40 Creatine Kinase 241 H CK-MB (CK-2) Troponin I 0.076 NT-Pro-B Natriuret Pep 8450 H 05/09/18 05/10/18 05/10/18 21:40 05:25 05:25 Creatine Kinase 273 H CK-MB (CK-2) 2.83 4.67 H Troponin I 0.110 0.099 NT-Pro-B Natriuret Pep 05/10/18 05/10/18 10:19 10:19 Creatine Kinase 556 H CK-MB (CK-2) 7.80 H Troponin I 0.083 NT-Pro-B Natriuret Pep Impressions: Abdomen/Pelvis CT 05/09/18 00:00 IMPRESSION: 1. Mild right basilar ground-glass attenuation possibly atelectasis or infection. 2. Distended urinary bladder with associated moderate bilateral hydroureteronephrosis likely secondary to outlet obstruction. Mild circumferential bladder wall thickening with perivesicular stranding likely secondary to cystitis. Recommend correlation with UA. 3. Small hiatal hernia. Chest X-Ray 05/09/18 17:05 IMPRESSION: Atelectasis or early pneumonia left lower lobe. Assessment & Plan - Diagnosis (1) SIRS (systemic inflammatory response syndrome) Is this a current diagnosis for this admission?: Yes Plan: With fluids and antibiotics systemic inflammatory response resolved etiology is most likely the cystitis (2) UTI (urinary tract infection) Qualifiers: Urinary tract infection type: acute cystitis Hematuria presence: with hematuria Qualified Code(s): N30.01 - Acute cystitis with hematuria Is this a current diagnosis for this admission?: Yes Plan: Evidently the patient removed his Anderson catheter with the balloon inflated. This was discovered at the assisted living facility. The patient was sent to the emergency department to replace the Anderson catheter and was found to have acute cystitis. Antibiotic therapy was initiated. Awaiting final culture results with sensitivities (3) Coffee ground emesis Is this a current diagnosis for this admission?: Yes Plan: This was noted during the emergency department evaluation. Gastroenterology has been consulted. Please see GI note. (4) Acute kidney injury (nontraumatic) Is this a current diagnosis for this admission?: Yes Plan: Will rehydrate the patient and continue to follow his renal function. I expect this to resolve with fluids. (5) Urinary retention Is this a current diagnosis for this admission?: Yes Plan: The patient does have a chronic indwelling Anderson catheter. Exact etiology is unknown. This is certainly an increased risk for infection in the trauma of self removal of his catheter may have only exacerbated the problem. 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 We will continue the Flomax at this time. It is unknown if there is a planned intervention. If the Anderson catheter is going to be left in place consider a suprapubic catheter and discontinuing the Flomax. (6) Acute encephalopathy Is this a current diagnosis for this admission?: Yes Plan: I believe the patient has underlying dementia and the acute infection has exacerbated the condition. He could tell me his name and date of . He cannot remember the name of the facility where he resides but he knew the location. Despite his birthday being the day prior to admission he had some trouble providing the name of the month however with a cue about his birthday he was then easily able to tell me that it is May. (7) COPD (chronic obstructive pulmonary disease) Qualifiers: COPD type: unspecified COPD Qualified Code(s): J44.9 - Chronic obstructive pulmonary disease, unspecified Is this a current diagnosis for this admission?: Yes Plan: Continue inhaler therapy. Supplement oxygen as needed. Monitor respiratory function. (8) Seizure disorder Is this a current diagnosis for this admission?: Yes Plan: Continue current antiepileptic medications. - Time Time Spent with patient: 25-34 minutes Medications reviewed and adjusted accordingly: Yes
[2018-05-11 06:07] LABS: ANION GAP 9 (5-19); BLOOD UREA NITROGEN 24 mg/dL (7-20); CALCIUM 8.6 mg/dL (8.4-10.2); CARBON DIOXIDE 28 mmol/L (22-30); CHLORIDE 105 mmol/L (98-107); GLUCOSE 84 mg/dL (75-110); POTASSIUM 3.8 mmol/L (3.6-5.0); SODIUM 142.2 mmol/L (137-145)
[2018-05-11] MEDS: NORMAL SALINE 100 ML with PANTOPRAZOLE SODIUM 80 MG IV PRN ×2 (06:43)
[2018-05-11] MEDS: MEROPENEM 1 GM in NORMAL SALINE 50 ML IV SCH ×2 (11:08→17:56)
[2018-05-11] MEDS ORDERED: DIPHENHYDRAMINE HCL 50 MG/ML VIAL ONE (11:32)
[2018-05-11] MEDS ORDERED: ONDANSETRON HCL INJ/PF 4 MG/2 ML SDV ONE (11:32)
[2018-05-11] MEDS ORDERED: FLUMAZENIL INJ 0.5 MG/5 ML VIAL ONE (11:33)
[2018-05-11] MEDS ORDERED: EPINEPHRINE INJ 1 MG/10 ML DISP.SYRIN ONE (11:33)
[2018-05-11] MEDS ORDERED: FENTANYL CITRATE INJ/PF 100 MCG/2 ML AMPUL ONE (11:33)
[2018-05-11] MEDS ORDERED: GLUCAGON,HUMAN RECOMB 1 MG INJ ONE (11:33)
[2018-05-11] MEDS ORDERED: MIDAZOLAM 2 MG/2 ML INJ ONE (11:33)
[2018-05-11] MEDS ORDERED: NALOXONE HCL INJ/PF 0.4 MG/1 ML SDV ONE (11:33)
--- NOTE | 2018-05-11 12:29 | Operative Report ---
Operative Report DATE OF SURGERY: 05/11/18 Operative Report: The risks benefits and alternatives of the procedure explained to the patient in detail and informed consent is obtained.A GIF Olympus video scope was inserted into the patient's mouth and hypopharynx, the esophagus is identified intubated and insufflated, the scope was then advanced through the esophagus stomach and duodenum, retroflexion maneuver is done, the esophagus stomach and first and second portions of the duodenum examined. PREOPERATIVE DIAGNOSIS: Coffee-ground emesis POSTOPERATIVE DIAGNOSIS: Gastritis status post biopsy. Hiatal hernia. No active bleeding seen. Bile reflux. Torres's esophagus status post biopsy for confirmation. No blood noted in the GI tract OPERATION: EGD with biopsy SURGEON: ORQUIDEA OLIVER ANESTHESIA: Moderate Sedation - 2 mg of Versed. Conscious sedation monitoring time 30 minutes. TISSUE REMOVED OR ALTERED: As noted above. COMPLICATIONS: None. ESTIMATED BLOOD LOSS: None. INTRAOPERATIVE FINDINGS: As noted above. PROCEDURE: Patient tolerated the procedure well. No immediate postprocedure complications are noted. Patient is sent back to his room in good condition. Resume regular diet as tolerated. Wait on biopsies. No active bleeding seen.
[2018-05-11] MEDS: SENNOSIDES/DOCUSATE 8.6-50 MG 1 EACH TABLET PO SCH ×2 (13:35→17:53)
[2018-05-11] MEDS: FINASTERIDE 5 MG TABLET PO SCH (13:35)
[2018-05-11] MEDS: TAMSULOSIN HCL 0.4 MG CAP.SR.24H PO SCH (13:35)
[2018-05-11] MEDS: DOCUSATE SODIUM 100 MG CAPSULE PO SCH ×2 (13:35→17:53)
[2018-05-11] MEDS: SPIRONOLACTONE 25 MG TABLET PO SCH (13:36)
[2018-05-11] MEDS: PSYLLIUM SEED-SF 5.85 GM PACKET PO SCH (13:37)
[2018-05-11] MEDS ORDERED: MEROPENEM 1 GM in NORMAL SALINE 50 ML IV SCH (14:00)
[2018-05-11] MEDS: TIOTROPIUM BROMIDE DPI 5 CAP/KIT (18 MCG/CAP) IH SCH (14:24)
[2018-05-11] MEDS: PHENOBARBITAL 64.8 MG TABLET PO SCH ×2 (14:24→21:10)
[2018-05-11] MEDS: METOPROLOL SUCCINATE 25 MG TAB.SR.24H PO SCH (15:56)
[2018-05-11] MEDS: LOSARTAN POTASSIUM 25 MG TABLET PO SCH (15:56)
[2018-05-11] MEDS: FAMOTIDINE 20 MG TABLET PO SCH (21:10)
[2018-05-11] MEDS: TORSEMIDE 20 MG TABLET PO SCH (21:10)
--- NOTE | 2018-05-11 22:02 | Physician Advisory Note ---
Physician Advisor ProgressNote .: Pursuant to the plan for [facility], I have reviewed the medical record for this patient. Physician Advisor Statement: Please clarify: 1. Do you feel pt came in w/"severe sepsis due to UTI, evidenced by ____[organ dysfunction: ОЛЕГ? hypotension? ...] THAT WAS DUE TO sepsis"? or "possible sepsis, ruled out", or ...? 2. ОЛЕГ, "likely due to ____" 3. "Acute GIB, likely due to " [gastritis? Torres's? ...] NEPTALI Hernandez
[2018-05-12] MEDS: MEROPENEM 1 GM in NORMAL SALINE 50 ML IV SCH ×3 (02:55→17:20)
[2018-05-12 05:42] LABS: ABSOLUTE EOSINOPHILS # (AUTO) 0.2 10^3/uL (0.0-0.6); ABSOLUTE MONOCYTES (AUTO) 0.6 10^3/uL (0.1-1.4); ABSOLUTE NEUT (AUTO) 4.9 10^3/uL (1.7-8.2); BASOPHILS % (AUTO) 0.7 % (0-2); EOSINOPHILS % (AUTO) 2.7 % (0-6); HEMATOCRIT 29.5 % (37.9-51.0); LYMPHOCYTES % (AUTO) 14.8 % (13-45); MEAN CORPUSCULAR HEMOGLOBIN 30.8 pg (27.0-33.4); MEAN CORPUSCULAR HGB CONC 33.9 g/dL (32.0-36.0); MEAN CORPUSCULAR VOLUME 91 fl (80-97); MONOCYTES % (AUTO) 8.6 % (3-13); PLATELET COUNT 154 10^3/uL (150-450); RED BLOOD COUNT 3.25 10^6/uL (4.35-5.55); RED CELL DISTRIBUTION WIDTH 13.8 % (11.5-14.0); SEGMENTED NEUTROPHILS % (AUTO) 73.2 % (42-78); TOTAL CELLS COUNTED % (AUTO) 100 %; WHITE BLOOD COUNT 6.7 10^3/uL (4.0-10.5)
[2018-05-12] MEDS: HEPARIN SOD (PORCINE) 5,000 UNIT/ML 1 ML SYRINGE SUBCUT SCH ×3 (05:44→21:42)
[2018-05-12] MEDS: QUETIAPINE FUMARATE 25 MG TABLET PO SCH ×3 (05:45→21:42)
[2018-05-12 06:00] LABS: ANION GAP 10 (5-19); BLOOD UREA NITROGEN 23 mg/dL (7-20); CALCIUM 8.5 mg/dL (8.4-10.2); CARBON DIOXIDE 30 mmol/L (22-30); CHLORIDE 101 mmol/L (98-107); GLUCOSE 94 mg/dL (75-110); POTASSIUM 3.8 mmol/L (3.6-5.0); SODIUM 141.4 mmol/L (137-145)
[2018-05-12] MEDS: SPIRONOLACTONE 25 MG TABLET PO SCH (10:04)
[2018-05-12] MEDS: LOSARTAN POTASSIUM 25 MG TABLET PO SCH (10:05)
[2018-05-12] MEDS: FINASTERIDE 5 MG TABLET PO SCH (10:05)
[2018-05-12] MEDS: TAMSULOSIN HCL 0.4 MG CAP.SR.24H PO SCH (10:05)
[2018-05-12] MEDS: DOCUSATE SODIUM 100 MG CAPSULE PO SCH ×2 (10:05→17:20)
[2018-05-12] MEDS: SENNOSIDES/DOCUSATE 8.6-50 MG 1 EACH TABLET PO SCH ×2 (10:05→17:20)
[2018-05-12] MEDS: METOPROLOL SUCCINATE 25 MG TAB.SR.24H PO SCH (10:05)
[2018-05-12] MEDS: PSYLLIUM SEED-SF 5.85 GM PACKET PO SCH (10:06)
[2018-05-12] MEDS: TIOTROPIUM BROMIDE DPI 5 CAP/KIT (18 MCG/CAP) IH SCH (10:07)
[2018-05-12] MEDS: PHENOBARBITAL 64.8 MG TABLET PO SCH ×2 (10:09→21:42)
[2018-05-12] MEDS ORDERED: BISACODYL 5 MG TABEC PO ONE (13:30)
--- NOTE | 2018-05-12 20:31 | PDOC PROGRESS REPORT ---
Subjective Progress Note for:: 05/12/18 Subjective:: Patient eating lunch in bed. Still appears confused. I am not sure he recognized me as his physician. Reason For Visit: URINARY TRACT INFECTION WITH CHRONIC INDWELLING Physical Exam Vital Signs: Temp Pulse Resp BP Pulse Ox 97.9 F 71 19 138/74 H 97 05/12/18 15:15 05/12/18 15:15 05/12/18 15:15 05/12/18 15:15 05/12/18 15:15 Intake & Output 05/11/18 05/12/18 05/13/18 06:59 06:59 06:59 Intake Total 680 2116 1076 Output Total 3950 2850 200 Balance -3270 -734 876 Weight 87.3 kg 89.4 kg General appearance: PRESENT: no acute distress, cooperative, disheveled Respiratory exam: PRESENT: clear to auscultation maykel, symmetrical, unlabored. ABSENT: rales, stridor, wheezes Cardiovascular exam: PRESENT: RRR, +S1, +S2 GI/Abdominal exam: PRESENT: normal bowel sounds, soft. ABSENT: tenderness Extremities exam: ABSENT: pedal edema Neurological exam: PRESENT: alert, awake, oriented to person, oriented to place Psychiatric exam: ABSENT: agitated, anxious Results Laboratory Results: 05/12/18 05:24 05/12/18 05:24 05/12/18 05/12/18 05:24 05:24 WBC 6.7 RBC 3.25 L Hgb 10.0 L Hct 29.5 L MCV 91 MCH 30.8 MCHC 33.9 RDW 13.8 Plt Count 154 Seg Neutrophils % 73.2 Lymphocytes % 14.8 Monocytes % 8.6 Eosinophils % 2.7 Basophils % 0.7 Absolute Neutrophils 4.9 Absolute Lymphocytes 1.0 Absolute Monocytes 0.6 Absolute Eosinophils 0.2 Absolute Basophils 0.0 Sodium 141.4 Potassium 3.8 Chloride 101 Carbon Dioxide 30 Anion Gap 10 BUN 23 H Creatinine 1.13 Est GFR ( Amer) > 60 Est GFR (Non-Af Amer) > 60 Glucose 94 Calcium 8.5 Magnesium 2.2 05/09/18 05/09/18 05/09/18 15:00 15:00 21:40 Creatine Kinase 241 H CK-MB (CK-2) Troponin I 0.076 NT-Pro-B Natriuret Pep 8450 H 05/09/18 05/10/18 05/10/18 21:40 05:25 05:25 Creatine Kinase 273 H CK-MB (CK-2) 2.83 4.67 H Troponin I 0.110 0.099 NT-Pro-B Natriuret Pep 05/10/18 05/10/18 10:19 10:19 Creatine Kinase 556 H CK-MB (CK-2) 7.80 H Troponin I 0.083 NT-Pro-B Natriuret Pep Impressions: Abdomen/Pelvis CT 05/09/18 00:00 IMPRESSION: 1. Mild right basilar ground-glass attenuation possibly atelectasis or infection. 2. Distended urinary bladder with associated moderate bilateral hydroureteronephrosis likely secondary to outlet obstruction. Mild circumferential bladder wall thickening with perivesicular stranding likely secondary to cystitis. Recommend correlation with UA. 3. Small hiatal hernia. Chest X-Ray 05/09/18 17:05 IMPRESSION: Atelectasis or early pneumonia left lower lobe. Assessment & Plan - Diagnosis (1) SIRS (systemic inflammatory response syndrome) Is this a current diagnosis for this admission?: Yes Plan: Resolved (2) UTI (urinary tract infection) Qualifiers: Urinary tract infection type: acute cystitis Hematuria presence: with hematuria Qualified Code(s): N30.01 - Acute cystitis with hematuria Is this a current diagnosis for this admission?: Yes Plan: Proteus mirabilis identified. Will change antibiotics. (3) Coffee ground emesis Is this a current diagnosis for this admission?: Yes Plan: Due to gastritis. (4) Acute kidney injury (nontraumatic) Is this a current diagnosis for this admission?: Yes Plan: Resolved (5) Urinary retention Is this a current diagnosis for this admission?: Yes Plan: Chronic indwelling Anderson catheter (6) Acute encephalopathy Is this a current diagnosis for this admission?: Yes Plan: Likely with underlying dementia but the acute infection created more confusion. He seems to be back and forth with regard to being somewhat confused and very confused. (7) COPD (chronic obstructive pulmonary disease) Qualifiers: COPD type: unspecified COPD Qualified Code(s): J44.9 - Chronic obstructive pulmonary disease, unspecified Is this a current diagnosis for this admission?: Yes Plan: Continue inhaler therapy. Supplement oxygen as needed. Monitor respiratory function. (8) Seizure disorder Is this a current diagnosis for this admission?: Yes Plan: Continue current antiepileptic medications. - Time Time Spent with patient: 15-24 minutes Medications reviewed and adjusted accordingly: Yes Anticipated discharge: Hospice - Plan Summary Plan Summary: Palliative care met with the patient's family. Wish for him to return to his assisted living but with hospice involved. If all of the arrangements can be made the transfer should occur tomorrow.
[2018-05-12] MEDS: TORSEMIDE 20 MG TABLET PO SCH (21:42)
[2018-05-13] MEDS: MEROPENEM 1 GM in NORMAL SALINE 50 ML IV SCH ×2 (02:00→09:45)
[2018-05-13] MEDS ORDERED: LANSOPRAZOLE 30 MG TAB.RAP.DR PO SCH (06:00)
[2018-05-13] MEDS: HEPARIN SOD (PORCINE) 5,000 UNIT/ML 1 ML SYRINGE SUBCUT SCH ×2 (06:34→13:40)
[2018-05-13] MEDS: QUETIAPINE FUMARATE 25 MG TABLET PO SCH ×2 (06:43→13:40)
[2018-05-13] MEDS: SPIRONOLACTONE 25 MG TABLET PO SCH (09:43)
[2018-05-13] MEDS: SENNOSIDES/DOCUSATE 8.6-50 MG 1 EACH TABLET PO SCH (09:43)
[2018-05-13] MEDS: FINASTERIDE 5 MG TABLET PO SCH (09:43)
[2018-05-13] MEDS: PSYLLIUM SEED-SF 5.85 GM PACKET PO SCH (09:44)
[2018-05-13] MEDS: DOCUSATE SODIUM 100 MG CAPSULE PO SCH (09:44)
[2018-05-13] MEDS: TAMSULOSIN HCL 0.4 MG CAP.SR.24H PO SCH (09:44)
[2018-05-13] MEDS: METOPROLOL SUCCINATE 25 MG TAB.SR.24H PO SCH (09:44)
[2018-05-13] MEDS: TIOTROPIUM BROMIDE DPI 5 CAP/KIT (18 MCG/CAP) IH SCH (09:44)
[2018-05-13] MEDS: LOSARTAN POTASSIUM 25 MG TABLET PO SCH (09:47)
[2018-05-13] MEDS: PHENOBARBITAL 64.8 MG TABLET PO SCH (09:49)
[2018-05-13 12:34] VITALS: BP 111/49
--- NOTE | 2018-05-13 14:47 | PDOC TRANSFER SUMMARY ---
General - Admit/Disc Date/PCP Admission Date/Primary Care Provider: 05/09/18 19:46 GRICELDA RYAN MD Discharge Date: 05/13/18 - Discharge Diagnosis (1) UTI (urinary tract infection) Is this a current diagnosis for this admission?: Yes Summary: Proteus mirabilis identified from the urine. Based on sensitivity profile complete Keflex antibiotics as ordered. (2) Acute encephalopathy Is this a current diagnosis for this admission?: Yes Summary: Consistent with underlying dementia exacerbated by acute infection. He is likely back to baseline. (3) Acute kidney injury (nontraumatic) Is this a current diagnosis for this admission?: Yes Summary: Serum creatinine elevated to 1.76 on admission. Subsequently corrected with IV fluids. (4) Coffee ground emesis Is this a current diagnosis for this admission?: Yes Summary: Endoscopy revealed gastritis. The patient is now on acid suppression therapy. (5) Urinary retention Is this a current diagnosis for this admission?: Yes Summary: Continue Flomax. If the Anderson catheter is to remain in place permanently then I would discontinue Flomax. (6) COPD (chronic obstructive pulmonary disease) Is this a current diagnosis for this admission?: Yes Summary: Resume inhalers. (7) Seizure disorder Is this a current diagnosis for this admission?: Yes Summary: Resume antiepileptic medication. (8) Chronic combined systolic and diastolic CHF (congestive heart failure) Is this a current diagnosis for this admission?: Yes Summary: Adjustments were made in the patient's medication regimen. He has been quite stable. Consider continuing current regimen. - Additional Information Resuscitation Status: Do Not Resuscitate Discharge Diet: As Tolerated Discharge Activity: Activity As Tolerated Prescriptions: Cephalexin Monohydrate [Keflex 250 mg Capsule] 250 mg PO BID 5 Days #10 capsule Famotidine [Pepcid 20 mg Tablet] 20 mg PO QHS 30 Days #30 tablet Losartan Potassium [Cozaar 25 mg Tablet] 25 mg PO DAILY 30 Days #30 tablet Pantoprazole Sodium 40 mg PO DAILY 30 Days #30 tablet. Spironolactone [Aldactone 25 mg Tablet] 12.5 mg PO DAILY 30 Days #15 tablet Home Medications: Albuterol Sulfate [Ventolin HFA MDI 18 GM] 2 puff PO Q4HP PRN 02/12/17 Aspirin [Aspirin 325 mg Tablet] 325 mg PO DAILY 02/12/17 Atorvastatin Calcium [Lipitor 40 mg Tablet] 40 mg PO Q12 02/12/17 Docusate Sodium [Colace 100 mg Capsule] 100 mg PO BID 02/12/17 Ferrous Sulfate [Feosol 325 mg Tablet] 325 mg PO Q12 02/12/17 Finasteride [Proscar 5 mg Tablet] 5 mg PO DAILY 02/12/17 Fluticasone Propionate [Flonase Nasal Wheeler 50 Mcg/Wheeler 16 gm] 1 spray NASL DAILY 02/12/17 Furosemide [Lasix 20 mg Tablet] 20 mg PO DAILY 02/12/17 Phenobarbital [Phenobarbital 64.8 mg Tablet] 64.8 mg PO Q12 02/12/17 Quetiapine Fumarate [Seroquel 25 mg Tablet] 25 mg PO Q8 02/12/17 Tamsulosin HCl [Flomax 0.4 mg Cap.sr] 0.4 mg PO DAILY 02/12/17 Umeclidinium Brm/Vilanterol Tr [Anoro Ellipta 62.5-25 Mcg INH] 1 puff IH DAILY 02/12/17 Metoprolol Succinate [Toprol Xl 25 mg Tab.sr] 25 mg PO DAILY 30 Days #30 tab.sr.24h 09/04/17 Sennosides [Senna Laxative] 17.2 mg PO BID 30 Days #60 09/04/17 Cyanocobalamin (Vitamin B-12) [Vitamin B-12 Inj 1000 Mcg/1 ml Vial] 1,000 mcg IM [id number] 02/26/18 Donepezil HCl [Aricept 5 mg Tablet] 5 mg PO QHS tablet 03/07/18 Psyllium Seed [Metamucil-Sf Powder 5.85 gm Packet] 1 packet PO DAILY packet 03/07/18 Tiotropium [place] [Spiriva Handihaler 5 Cap/Kit (18 Mcg/Cap)] 1 cap IH DAILY 30 Days #1 kit 03/07/18 Cephalexin Monohydrate [Keflex 250 mg Capsule] 250 mg PO BID 5 Days #10 capsule 05/13/18 Famotidine [Pepcid 20 mg Tablet] 20 mg PO QHS 30 Days #30 tablet 05/13/18 Losartan Potassium [Cozaar 25 mg Tablet] 25 mg PO DAILY 30 Days #30 tablet 05/13/18 Pantoprazole Sodium 40 mg PO DAILY 30 Days #30 tablet. 05/13/18 Spironolactone [Aldactone 25 mg Tablet] 12.5 mg PO DAILY 30 Days #15 tablet 05/13/18 History of Present Illness Admission Date/PCP: 05/09/18 19:46 GRICELDA RYAN MD Patient complains of: Acute encephalopathy with acute cystitis History of Present Illness: JESENIA LÓPEZ is a 78 year old male who presented from these assisted living facility after having pulled out his Anderson catheter. During the evaluation it was found that he had abnormal urine and this was sent for culture. He had an elevated lactic acid level. Coffee-ground emesis was also reported. Hospital Course Hospital Course: Multiple comorbidities were addressed during this hospitalization. Cystitis-the patient's catheter was replaced. A culture revealed Proteus mirabilis. It was fairly sensitive and he will be discharged on Keflex 250 mg twice daily for 5 days. He is on Flomax. If the Anderson catheter is to remain in place consider discontinuing Flomax. Gastritis with coffee-ground emesis-the patient did undergo endoscopy. It did show gastritis. He is now on acid suppression therapy. Congestive heart failure-the patient has a history of combined systolic and diastolic heart failure. Several adjustments were made in his medication regimen. He has been doing quite well. He tolerates the new regimen without difficulty. Acute encephalopathy-patient does have underlying dementia. The cystitis and other comorbidities identified on admission certainly would cause a flare and his dementia accounting for the acute encephalopathy. I do not know the patient's baseline but he appears to be at baseline which may very well be his regular baseline. Acute kidney injury-unknown if this is related to the infection. His serum c reatinine was 1.76 on admission. With fluid management and adjustments of medication his serum creatinine is now back in the normal range. Physical Exam Vital Signs: Temp Pulse Resp BP Pulse Ox 97.8 F 64 18 111/49 L 99 05/13/18 11:24 05/13/18 11:24 05/13/18 11:24 05/13/18 11:24 05/13/18 11:24 Intake & Output 05/12/18 05/13/18 05/14/18 06:59 06:59 06:59 Intake Total 2116 1126 424 Output Total 2850 1100 250 Balance -734 26 174 Weight 89.4 kg 87.1 kg General appearance: PRESENT: no acute distress Respiratory exam: PRESENT: clear to auscultation maykel. ABSENT: rales, rhonchi, wheezes Cardiovascular exam: PRESENT: RRR, +S1, +S2 GI/Abdominal exam: PRESENT: normal bowel sounds, soft. ABSENT: tenderness Neurological exam: PRESENT: alert, awake, oriented to person, oriented to place Psychiatric exam: ABSENT: agitated, anxious Results Laboratory Results: 05/12/18 05:24 05/12/18 05:24 05/09/18 05/09/18 05/09/18 15:00 15:00 21:40 Creatine Kinase 241 H CK-MB (CK-2) Troponin I 0.076 NT-Pro-B Natriuret Pep 8450 H 05/09/18 05/10/18 05/10/18 21:40 05:25 05:25 Creatine Kinase 273 H CK-MB (CK-2) 2.83 4.67 H Troponin I 0.110 0.099 NT-Pro-B Natriuret Pep 05/10/18 05/10/18 10:19 10:19 Creatine Kinase 556 H CK-MB (CK-2) 7.80 H Troponin I 0.083 NT-Pro-B Natriuret Pep Impressions: Abdomen/Pelvis CT 05/09/18 00:00 IMPRESSION: 1. Mild right basilar ground-glass attenuation possibly atelectasi s or infection. 2. Distended urinary bladder with associated moderate bilateral hydroureteronephrosis likely secondary to outlet obstruction. Mild circumferential bladder wall thickening with perivesicular stranding likely secondary to cystitis. Recommend correlation with UA. 3. Small hiatal hernia. Chest X-Ray 05/09/18 17:05 IMPRESSION: Atelectasis or early pneumonia left lower lobe. Transfer Plan - Disposition Transfer Plan: Patient transferring back to [facility] with hospice services in place. - Time Spent with Patient Time spent with patient: Greater than 30 Minutes Qualifiers - * PATIENT BEING DISCHARGED WITH ANY OF THE FOLLOWING DIAGNOSIS: Heart Failure HF Pt being discharged on ACEI for LVEF less than 40%?: No Reason(s) for not prescribing ACEI:: Drug intolerance, Hospice Care HF Pt being discharged on [facility]BS for LVEF less than 40%?: Yes Reason(s) for not prescribing [facility]BS:: Hospice Care HF Pt with Afib discharged with Warfarin?: No Reason(s) for not prescribing Warfarin:: Hospice Care HF Pt discharged on evidence-based Beta Rocio:: Yes Reason(s) for not prescribing evidence-based Beta Rocio:: Hospice Care Plan Discharge Plan: Patient is returning to assisted living. He has been enrolled in hospice. Prescriptions were provided for the new medications however once enrolled in hospice they may very well discontinued his medications. Prescriptions were provided in the event that they continue the medications. Time Spent: Greater than 30 Minutes
== END 2018-05-13 16:25 | DRG 699 ==
LOC: ER 13:30 → EH 19:46 → 4N 05-10 11:19
PROVIDERS: ADMIT Emergency Medicine; ATTEND Emergency Medicine
PROC: 0DB68ZX Excision of Stomach, Via Natural or Artificial Opening Endoscopic, Diagnostic (ICD-10-PCS; principal; 2018-05-11 12:00)
DX: T83.518A Infection and inflammatory reaction due to other urinary catheter, initial encounter (principal); N30.01 Acute cystitis with hematuria; G93.40 Encephalopathy, unspecified; N17.9 Acute kidney failure, unspecified; I50.42 Chronic combined systolic (congestive) and diastolic (congestive) heart failure; B96.4 Proteus (mirabilis) (morganii) as the cause of diseases classified elsewhere; R33.9 Retention of urine, unspecified; K29.70 Gastritis, unspecified, without bleeding; J44.9 Chronic obstructive pulmonary disease, unspecified; G40.909 Epilepsy, unspecified, not intractable, without status epilepticus; I48.91 Unspecified atrial fibrillation; K44.9 Diaphragmatic hernia without obstruction or gangrene; F03.90 Unspecified dementia, unspecified severity, without behavioral disturbance, psychotic disturbance, mood disturbance, and anxiety; Z79.899 Other long term (current) drug therapy; Z79.82 Long term (current) use of aspirin
CPT/HCPCS: 36415; 43239; 71045; 74177; 80048; 80053; 81001; 82550; 82553; 83605; 83735; 83880; 84439; 84443; 84481; 84484; 85025; 85610; 85730; 87040; 87086; 87088; 87186; 88305; 88342; 93005; 93010; 94640; 96365; 96366; 96375; 99285; J0171; J0696; J1200; J1610; J1644; J2185; J2250; J2310; J2405; J3010; J3490; J7030; J7040; S0164

== ENCOUNTER 2019-04-02 13:07 | Inpatient (IN) | payer MEDICARE ==
[2019-04-02 13:40] LABS: ABSOLUTE LYMPHOCYTES (AUTO) 0.8 10^3/uL (0.5-4.7); ABSOLUTE MONOCYTES (AUTO) 1.5 10^3/uL (0.1-1.4); ABSOLUTE NEUT (AUTO) 8.4 10^3/uL (1.7-8.2); BASOPHILS % (AUTO) 0.2 % (0-2); EOSINOPHILS % (AUTO) 0.1 % (0-6); HEMATOCRIT 34.8 % (37.9-51.0); HEMOGLOBIN 11.7 g/dL (13.5-17.0); LYMPHOCYTES % (AUTO) 7.8 % (13-45); MEAN CORPUSCULAR HEMOGLOBIN 31.2 pg (27.0-33.4); MEAN CORPUSCULAR HGB CONC 33.6 g/dL (32.0-36.0); MEAN CORPUSCULAR VOLUME 93 fl (80-97); MONOCYTES % (AUTO) 13.7 % (3-13); PLATELET COUNT 176 10^3/uL (150-450); RED BLOOD COUNT 3.74 10^6/uL (4.35-5.55); RED CELL DISTRIBUTION WIDTH 13.6 % (11.5-14.0); SEGMENTED NEUTROPHILS % (AUTO) 78.2 % (42-78); TOTAL CELLS COUNTED % (AUTO) 100 %; WHITE BLOOD COUNT 10.8 10^3/uL (4.0-10.5)
[2019-04-02 13:43] LABS: APPEARANCE,URINE TURBID; BILIRUBIN,URINE NEGATIVE (NEGATIVE); COLOR,URINE YELLOW; GLUCOSE, URINE NEGATIVE (NEGATIVE); KETONES,URINE NEGATIVE (NEGATIVE); PROTEIN,URINE >=500 mg/dL (NEGATIVE); URINE SPECIFIC GRAVITY 1.027; UROBILINOGEN,URINE NEGATIVE mg/dL (<2.0)
[2019-04-02 13:46] LABS: INTERNATIONAL RATION (INR) 1.16; PROTHROMBIN TIME 14.9 SEC (11.4-15.4)
[2019-04-02 13:47] LABS: AMORPHOUS SEDIMENT,UR TRACE; BACTERIA,URINE 2+ /HPF; TRIPLE PHOSPHATE CRYSTAL,UR MANY /HPF
[2019-04-02 14:19] LABS: ALBUMIN 3.7 g/dL (3.5-5.0); ALKALINE PHOSPHATASE 73 U/L (38-126); ANION GAP 15 (5-19); ASPARTATE AMINO TRANSFERASE 33 U/L (17-59); BILIRUBIN,DIRECT 0.4 mg/dL (0.0-0.4); BILIRUBIN,TOTAL 0.5 mg/dL (0.2-1.3); BLOOD UREA NITROGEN 39 mg/dL (7-20); CALCIUM 8.9 mg/dL (8.4-10.2); CARBON DIOXIDE 25 mmol/L (22-30); CHLORIDE 106 mmol/L (98-107); GLUCOSE 107 mg/dL (75-110); POTASSIUM 4.2 mmol/L (3.6-5.0); TOTAL PROTEIN 7.3 g/dL (6.3-8.2)
--- NOTE | 2019-04-02 14:58 | ER Document Report ---
ED Fever - General Chief Complaint: Fever Stated Complaint: HIGH BLOOD PRESSURE/FEVER Time Seen by Provider: 04/02/19 13:24 Primary Care Provider: GRICELDA RYAN MD [Primary Care Provider] - Follow up as needed Notes: 78-year-old male presents to the emergency department with a fever of 101.8. He is coming to us from the [facility]. Patient denies pain, has had a cough and shortness of breath. He has had chronic hiccups for approximately 6 months. His daughter notes that he also has COPD and is not on home O2. Patient is a DNR. EMS liam blood cultures, patient received 1 g of Rocephin IV, lactate in the field was 1.8. He was given a 1 L bolus of lactated Ringer's, rectal temp noted to be 101.1. Apparently he has had decreased appetite and increased work to breathe for tachycardia during the weekend. He was given a DuoNeb in route with some improvement. TRAVEL OUTSIDE OF THE [place] IN LAST 30 DAYS: No - Related Data Allergies/Adverse Reactions: No Known Allergies Allergy (Verified 05/10/18 11:34) Past Medical History - Social History Smoking Status: Unknown if Ever Smoked Family History: Hypertension Patient has suicidal ideation: No Patient has homicidal ideation: No - Past Medical History Cardiac Medical History: Reports: Hx Atrial Fibrillation, Hx 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, Hx Coronary Artery Disease, Hx Heart Attack Denies: Hx DVT, Hx Pulmonary Embolism Pulmonary Medical History: Reports: Hx COPD Denies: Hx Tuberculosis Neurological Medical History: Reports: Hx Seizures Endocrine Medical History: Denies: Hx Diabetes Mellitus Type 1, Hx Diabetes Mellitus Type 2 Renal/ Medical History: Denies: Hx Peritoneal Dialysis GI Medical History: Reports: Hx Diverticulitis, Hx Gastroesophageal Reflux Disease, Hx Hiatal Hernia. Denies: Hx Cirrhosis, Hx Hepatitis Musculoskeletal Medical History: Denies Hx Arthritis, Denies Hx Gout Skin Medical History: Denies Hx Eczema, Denies Hx Psoriasis Psychiatric Medical History: Reports: Hx Dementia Denies: Hx Bipolar Disorder, Hx Depression Infectious Medical History: Denies: Hx Hepatitis Past Surgical History: Reports: Hx Abdominal Surgery - perforated hernia, Hx Cardiac Catheterization, Hx Cardiac Surgery - STENT, Hx Coronary Stent - Immunizations Hx Diphtheria, Pertussis, Tetanus Vaccination: Yes Hx Pneumococcal Vaccination: 01/02/11 Review of Systems - Review of Systems Notes: Constitutional: + fever. HENT: Negative for sore throat. Eyes: Negative for visual changes. Cardiovascular: No chest pain, + rapid heart rate. Respiratory: + shortness of breath. Gastrointestinal: Negative for abdominal pain, vomiting or diarrhea. Genitourinary: Negative for dysuria. Musculoskeletal: Negative for back pain. Skin: Negative for rash. Neurological: Negative for headaches, weakness or numbness. 10 point ROS negative except as marked above and in HPI. Physical Exam - Vital signs Vitals: Resp 26 H 04/02/19 13:14 - Notes Notes: PHYSICAL EXAMINATION: Physical Exam: General: Well-nourished well-developed elderly male in no acute distress HEENT: NC/AT, pupils equal round and reactive to light, MM moist,nares clear, + facial symmetry Neck: supple, no adenopathy, no masses. Lungs: clear, no wheezing, no rales no rhonchi CVS: Tachycardiaa week ,rate and rhythm no murmur gallop or rub Abdomen: Soft active nontender, no masses, no hepatosplenomegaly Ext: No edema clubbing or cyanosis. Neuro: Alert and responsive, moving all 4 extremities on command, cranial nerves intact. Skin: Intact no open lesions, no rash PSYCH: Normal mood, normal affect. Course - Re-evaluation Re-evalutation: 04/02/19 17:32 Patient continues to have a rapid heartbeat, 15 mg of Cardizem given IV, no impact on his rate, because the initial rhythm appeared to to have very little R to R variation, adenosine 6 mg was given. At that time the patient was clearly in an atrial fibrillation rhythm with a rate of 120. Cardizem drip was ordered I discussed with the family that the patient continues to be in atrial fib likely due to his acute medical condition blood pressure stable will titrate Cardizem to rate and also blood pressure toleration. Given his urinary tract infection and fever, the patient is being admitted to the hospital for further evaluation and treatment. He is a DNR and the family has reiterated that he is not to be put on life support or to have heroic measures performed. I have contacted the hospitalist, will admit the patient to the [facility] f or further treatment. - Vital Signs Vital signs: Temp Pulse Resp BP Pulse Ox 97.8 F 167 H 24 H 115/70 96 04/02/19 13:27 04/02/19 13:27 04/02/19 16:43 04/02/19 16:43 04/02/19 16:43 - Laboratory Result Diagrams: 04/02/19 13:23 04/02/19 13:23 Laboratory results interpreted by me: 04/02/19 04/02/19 04/02/19 12:35 12:35 13:23 WBC 10.8 H RBC 3.74 L Hgb 11.7 L Hct 34.8 L Lymph % (Auto) 7.8 L Bladen % (Auto) 13.7 H Absolute Neuts (auto) 8.4 H Absolute Monos (auto) 1.5 H Seg Neutrophils % 78.2 H Sodium BUN Creatinine Est GFR (MDRD) Non-Af POC Glucose Creatine Kinase 174 H NT-Pro-B Natriuret Pep 2870 H Urine Protein Urine Nitrite (Reflex) Leukocyte Esterase Rfl 04/02/19 04/02/19 04/02/19 13:23 13:23 13:36 WBC RBC Hgb Hct Lymph % (Auto) Bladen % (Auto) Absolute Neuts (auto) Absolute Monos (auto) Seg Neutrophils % Sodium 146.1 H BUN 39 H Creatinine 1.27 H Est GFR (MDRD) Non-Af 55 L POC Glucose 129 H Creatine Kinase NT-Pro-B Natriuret Pep Urine Protein >=500 H Urine Nitrite (Reflex) POSITIVE H Leukocyte Esterase Rfl MODERATE H 04/02/19 17:26 I have reviewed laboratory data and used this information for the treatment decisions regarding the patient. - Diagnostic Test Radiology reviewed: Image reviewed, Reports reviewed - Chest x-ray: No acute infiltrate or effusion - EKG Interpretation by Me Rhythm: A.Fib - With RVR. Q waves in II,III and F, age indeterminant, (present on prior EKG 05/09/2018) nonspecific T wave abnormalities. Critical Care Note - Critical Care Note Total time excluding time spent on procedures (mins): 60 - Critical care time spent obtaining history from patient or surrogate, discussions with consultants, development of treatment plan with patient or surrogate, evaluation of patient's response to treatment, examination of patient, ordering and performing treatments and interventions, ordering and review of laboratory studies, re- evaluation of patient's condition, ordering and review of radiographic studies and review of old charts Discharge - Discharge Clinical Impression: COPD exacerbation, Atrial fibrillation with RVR, Do not resuscitate, Chronic indwelling Anderson catheter UTI (urinary tract infection) Qualifiers: Urinary tract infection type: catheter-associated UTI Indwelling urinary catheter type: indwelling urethral catheter Encounter type: initial encounter Qualified Code(s): T83.511A - Infection and inflammatory reaction due to indwelling urethral catheter, initial encounter Disposition: ADMITTED INPATIENT Admitting Provider: Ellen (Hospitalist) Unit Admitted: IMCU Referrals: GRICELDA RYAN MD [Primary Care Provider] - Follow up as needed
[2019-04-02] MEDS ORDERED: DILTIAZEM HCL INJ 25 MG/5 ML VIAL IV ONE (15:10)
[2019-04-02] MEDS ORDERED: NORMAL SALINE 500 ML IV ONE (15:14)
--- NOTE | 2019-04-02 15:24 | RADIOLOGY REPORT (SQ) ---
EXAM DESCRIPTION: CHEST SINGLE VIEW COMPLETED DATE/TIME: 04/02/2019 3:14 pm REASON FOR STUDY: sepsis protocol COMPARISON: 05/09/2018. NUMBER OF VIEWS: One view. TECHNIQUE: Single frontal radiographic view of the chest acquired. LIMITATIONS: None. FINDINGS: LUNGS AND PLEURA: Mild basilar atelectasis/ scarring. No infiltrates, masses or pneumotho rax. No pleural effusion. MEDIASTINUM AND HILAR STRUCTURES: No masses. Contour normal. HEART AND VASCULAR STRUCTURES: Heart enlarged without failure. Normal vasculature. BONES: No acute findings. HARDWARE: None in the chest. OTHER: No other significant finding. IMPRESSION: HEART ENLARGED WITHOUT FAILURE. NO OTHER SIGNIFICANT RADIOGRAPHIC FINDING IN THE CHEST. TECHNICAL DOCUMENTATION: JOB ID: [id number] [email or web address]- All Rights Reserved Reading location - IP/workstation name: [email or web address]
[2019-04-02 16:07] LABS: CREATINE KINASE MB 0.91 ng/mL (<4.55)
[2019-04-02 16:11] LABS: TROPONIN I 0.049 ng/mL
[2019-04-02] MEDS ORDERED: ADENOSINE INJ/PF 6 MG/2 ML SDV IV ONE (16:29)
[2019-04-02] MEDS: DILTIAZEM HCL/D5W 125 MG/125 ML RTUINJ IV PRN (17:37)
--- NOTE | 2019-04-02 18:01 | PDOC H&P ---
History of Present Illness Admission Date/PCP: GRICELDA RYAN MD History of Present Illness: JESENIA LÓPEZ is a 78 year old male past medical history of non-oxygen dependent COPD, atrial fibrillation, CHF, hypertension, posterior brain circulation aneurysm, seizure, CAD status post stent, multiple CVA, CKD, urinary retention with chronic Anderson catheter placement x3 years, dementia, who is a resident of residential at [facility], brought to ED by EMS for evaluation of f ever, low appetite, and A. fib RVR. Patient resting in bed seems to be in mild respiratory distress with with audible wheezing and productive cough however alert and oriented x3, does not provide much history due to his dementia, family at bedside stating that as per residential patient has been having low appetite for the last 3 days and his heart rate has been uncontrolled. Patient denies any chest pain, nausea, vomiting, abdominal pain, headache, vision changes, constipation. In ED he was found to have uncontrolled A. fib, mildly elevated WBC and positive UA. 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, Coronary Artery Disease, Myocardial Infarction Denies: DVT, Pulmonary Embolism Pulmonary Medical History: Reports: Chronic Obstructive Pulmonary Disease (COPD) Denies: Tuberculosis Neurological Medical History: Reports: Seizures Endocrine Medical History: Denies: Diabetes Mellitus Type 1, Diabetes Mellitus Type 2 GI Medical History: Reports: Diverticulitis, Gastroesophageal Reflux Disease, Hiatal Hernia Denies: Cirrhosis, Hepatitis Musculoskeltal Medical History: Denies: Arthritis, Gout Skin Medical History: Denies: Eczema, Psoriasis Psychiatric Medical History: Reports: Dementia Denies: Bipolar Disorder, Depression Hematology: Denies: Anemia, Bleeding Tendencies Past Surgical History Past Surgical History: Reports: Cardiac Catheterization, Coronary Stent Social History Smoking Status: Unknown if Ever Smoked Frequency of Alcohol Use: None Hx Recreational Drug Use: No Drugs: None Hx Prescription Drug Abuse: No Family History Family History: Hypertension Parental Family History Reviewed: Yes Children Family History Reviewed: Yes Sibling(s) Family History Reviewed.: Yes Medication/Allergy Home Medications: Aspirin [Aspirin 325 mg Tablet] 325 mg PO DAILY 02/12/17 Atorvastatin Calcium [Lipitor 40 mg Tablet] 40 mg PO Q12 02/12/17 Docusate Sodium [Colace 100 mg Capsule] 100 mg PO BID 02/12/17 Ferrous Sulfate [Feosol 325 mg Tablet] 325 mg PO Q12 02/12/17 Finasteride [Proscar 5 mg Tablet] 5 mg PO DAILY 02/12/17 Furosemide [Lasix 20 mg Tablet] 20 mg PO DAILY 02/12/17 Phenobarbital [Phenobarbital 64.8 mg Tablet] 60 mg PO Q12 02/12/17 Quetiapine Fumarate [Seroquel 25 mg Tablet] 25 mg PO Q8 02/12/17 Tamsulosin HCl [Flomax 0.4 mg Cap.sr] 0.4 mg PO DAILY 02/12/17 Metoprolol Succinate [Toprol Xl 25 mg Tab.sr] 25 mg PO DAILY 30 Days #30 tab.sr.24h 09/04/17 Sennosides [Senna Laxative] 17.2 mg PO BID 30 Days #60 09/04/17 Donepezil HCl [Aricept 5 mg Tablet] 5 mg PO QHS tablet 03/07/18 Famotidine [Pepcid 20 mg Tablet] 20 mg PO QHS 30 Days #30 tablet 05/13/18 Losartan Potassium [Cozaar 25 mg Tablet] 25 mg PO DAILY 30 Days #30 tablet 05/13/18 Spironolactone [Aldactone 25 mg Tablet] 12.5 mg PO DAILY 30 Days #15 tablet 05/13/18 Albuterol Sulfate [Ventolin Hfa 8 gm Mdi (1 Mdi/ER Disp)] 2 puff IH ASDIR PRN 04/02/19 Cranberry Conc/Ascorbic Acid [Cranberry Plus Vitamin C Sftgl] 1 each PO DAILY 04/02/19 Cyanocobalamin (Vitamin B-12) [Vitamin B-12] 1,000 mcg PO DAILY 04/02/19 Guaifenesin [Robitussin Syrup 200 mg/10 ml Ud Cup] 100 mg PO QIDP PRN 04/02/19 Haloperidol [Haldol 1 Mg Tablet] 1 mg PO Q6H PRN 04/02/19 Lactose-Reduced Food [Ensure Liquid] 237 ml PO TID 04/02/19 Lorazepam 0.5 mg PO Q6H PRN 04/02/19 Morphine Sulfate [Roxanol] 5 mg PO Q3H 04/02/19 Ondansetron HCl [Zofran 4 mg Tablet] 1 tab PO Q6H PRN 04/02/19 Allergies/Adverse Reactions: No Known Allergies Allergy (Verified 05/10/18 11:34) Review of Systems Review of Systems: as per hpi Physical Exam Vital Signs: Temp Pulse Resp BP Pulse Ox 97.8 F 167 H 24 H 115/70 96 04/02/19 13:27 04/02/19 13:27 04/02/19 16:43 04/02/19 16:43 04/02/19 16:43 Intake & Output 04/01/19 04/02/19 04/03/19 06:59 06:59 06:59 Intake Total 500 Balance 500 Weight 80 kg General appearance: PRESENT: mild distress Head exam: PRESENT: atraumatic, normocephalic Neck exam: ABSENT: carotid bruit, JVD, lymphadenopathy, thyromegaly Respiratory exam: PRESENT: accessory muscle use, decreased breath sounds, prolonged expiratory phas, tachypnea, wheezes Cardiovascular exam: PRESENT: irregular rhythm, tachycardia. ABSENT: diastolic murmur, rubs, systolic murmur Pulses: PRESENT: normal dorsalis pedis pul GI/Abdominal exam: PRESENT: normal bowel sounds, soft. ABSENT: distended, guarding, mass, organolmegaly, rebound, tenderness Neurological exam: PRESENT: alert, awake, oriented to person, oriented to place, CN II-XII grossly intact. ABSENT: motor sensory deficit Results Laboratory Results: 04/02/19 13:23 04/02/19 13:23 04/02/19 04/02/19 04/02/19 13:23 13:23 13:23 WBC 10.8 H RBC 3.74 L Hgb 11.7 L Hct 34.8 L MCV 93 MCH 31.2 MCHC 33.6 RDW 13.6 Plt Count 176 Seg Neutrophils % 78.2 H Sodium 146.1 H Potassium 4.2 Chloride 106 Carbon Dioxide 25 Anion Gap 15 BUN 39 H Creatinine 1.27 H Est GFR ( Amer) > 60 Glucose 107 Lactic Acid 0.9 Calcium 8.9 Total Bilirubin 0.5 AST 33 Alkaline Phosphatase 73 Total Protein 7.3 Albumin 3.7 Urine Color Urine Appearance Urine pH Ur Specific [place] Urine Protein Urine Glucose (UA) Urine Ketones Urine Blood 04/02/19 13:23 WBC RBC Hgb Hct MCV MCH MCHC RDW Plt Count Seg Neutrophils % Sodium Potassium Chloride Carbon Dioxide Anion Gap BUN Creatinine Est GFR ( Amer) Glucose Lactic Acid Calcium Total Bilirubin AST Alkaline Phosphatase Total Protein Albumin Urine Color YELLOW Urine Appearance TURBID Urine pH 9.0 Ur Specific [place] 1.027 Urine Protein >=500 H Urine Glucose (UA) NEGATIVE Urine Ketones NEGATIVE Urine Blood NEGATIVE 04/02/19 04/02/19 12:35 12:35 Creatine Kinase 174 H CK-MB (CK-2) 0.91 Troponin I 0.049 NT-Pro-B Natriuret Pep 2870 H Impressions: Chest X-Ray 04/02/19 13:15 IMPRESSION: HEART ENLARGED WITHOUT FAILURE. NO OTHER SIGNIFICANT RADIOGRAPHIC FINDING IN THE CHEST. Assessment and Plan - Diagnosis (1) Acute respiratory failure with hypoxia Is this a current diagnosis for this admission?: Yes Plan: Multifactorial. Most likely due to combination of A. fib RVR, COPD exacerbation but underlying CHF. Admit to telemetry, duo nebs, IV steroids, empiric IV antibiotics, PRN BiPAP, LABA, LABA, ICS, pulmonary toileting, incentive spirometry, flutter valve. (2) Atrial fibrillation with RVR Is this a current diagnosis for this admission?: Yes Plan: History of persistent atrial fibrillation. Anticoagulated. Likely due to underlying acute respiratory failure caused by COPD exacerbation. Admit to telemetry, Cardizem drip, monitor vitals. Transition to p.o. Cardizem once appropriate. (3) COPD exacerbation Is this a current diagnosis for this admission?: Yes Plan: Non-oxygen dependent COPD. Plan as per #1. (4) Chronic indwelling Anderson catheter Is this a current diagnosis for this admission?: Yes Plan: History of chronic indwelling Anderson catheter due to urinary retention. Replace Anderson cath. Outpatient urology follow-up. (5) DNR (do not resuscitate) Is this a current diagnosis for this admission?: Yes Plan: Patient CODE STATUS is DNR. This was confirmed by daughter and were at the bedside. (6) UTI (urinary tract infection) Qualifiers: Urinary tract infection type: catheter-associated UTI Indwelling urinary catheter type: indwelling urethral catheter Encounter type: initial encounter Qualified Code(s): T83.511A - Infection and inflammatory reaction due to indwelling urethral catheter, initial encounter; N39.0 - Urinary tract infection, site not specified Is this a current diagnosis for this admission?: Yes Plan: History of recurrent catheter associated UTI. Recurrent UTI due to E. coli, Proteus, Klebsiella and Pseudomonas. Empiric broad-spectrum IV antibiotics to cover for above organism. Follow-up urine culture narrow spectrum as per culture finding. (7) Chronic combined systolic and diastolic CHF (congestive heart failure) Is this a current diagnosis for this admission?: Yes Plan: Does not seem to be acutely exacerbated. Appears euvolemic. [id number]. Down from baseline of 5-10,000. (8) Seizure disorder Is this a current diagnosis for this admission?: Yes Plan: Restart home meds. PRN benzos. Seizure precautions.
[2019-04-02] MEDS ORDERED: LEVALBUTEROL HCL NEB 0.63 MG/3 ML AMPUL NEB PRN (18:09)
[2019-04-02] MEDS ORDERED: OXYCODONE-ACETAMINOPHEN 5-325 MG TABLET PO PRN (18:09)
[2019-04-02] MEDS ORDERED: NORMAL SALINE 1000 ML 1,000 ML IV PRN (18:09)
[2019-04-02] MEDS ORDERED: ACETAMINOPHEN 325 MG TABLET PO PRN (18:09)
[2019-04-02] MEDS ORDERED: ONDANSETRON HCL INJ/PF 4 MG/2 ML SDV IV PRN (18:09)
[2019-04-02] MEDS ORDERED: LORAZEPAM 0.5 MG TABLET PO PRN (18:13)
[2019-04-02] MEDS ORDERED: GUAIFENESIN SYRP 200 MG/10 ML UDC PO PRN (18:13)
[2019-04-02] MEDS ORDERED: HALOPERIDOL 1 MG TABLET PO PRN (18:13)
[2019-04-02] MEDS ORDERED: MORPHINE SULFATE 5 MG PO SCH (18:15)
[2019-04-02] MEDS ORDERED: METOPROLOL TARTRATE PF/INJ 5 MG/5 ML SDV IV PRN (18:16)
[2019-04-02] MEDS ORDERED: HYDRALAZINE HCL INJ/PF 20 MG/1 ML SDV IV PRN (18:16)
--- NOTE | 2019-04-02 18:47 | EKG REPORT ---
SEVERITY:- ABNORMAL ECG - SUPRAVENTRICULAR TACHYCARDIA INFERIOR INFARCT, AGE INDETERMINATE NONSPECIFIC T ABNORMALITIES, ANT-LAT LEADS : Confirmed by: Adam Gilbert MD 02-Apr-2019 18:47:17
[2019-04-02] MEDS ORDERED: PIPERACILLIN/TAZOBACTAM 3.375 GM VIAL IV ONE (20:23)
[2019-04-02] MEDS: LEVALBUTEROL HCL NEB 0.63 MG/3 ML AMPUL NEB SCH (20:45)
[2019-04-02] MEDS: PIPERACILLIN SODIUM/TAZOBACTAM 3.375 GM in NORMAL SALINE 100 ML IV SCH (20:46)
[2019-04-02] MEDS ORDERED: MORPHINE SULFATE 10 MG/5 ML ORAL SOLUTION UDCUP PO SCH (21:00)
[2019-04-02] MEDS: FERROUS SULFATE 325 MG TABLET PO SCH (22:40)
[2019-04-02] MEDS: HEPARIN SOD (PORCINE) 5,000 UNIT/ML 1 ML VIAL SUBCUT SCH (22:40)
[2019-04-02] MEDS: PHENOBARBITAL 64.8 MG TABLET PO SCH (22:40)
[2019-04-02] MEDS: DONEPEZIL HCL 5 MG TABLET PO SCH (22:40)
[2019-04-02] MEDS: ATORVASTATIN CALCIUM 40 MG TABLET PO SCH (22:40)
[2019-04-02] MEDS: QUETIAPINE FUMARATE 25 MG TABLET PO SCH (22:40)
[2019-04-03] MEDS: PIPERACILLIN SODIUM/TAZOBACTAM 3.375 GM in NORMAL SALINE 100 ML IV SCH ×5 (00:02→23:00)
[2019-04-03] MEDS: LEVALBUTEROL HCL NEB 0.63 MG/3 ML AMPUL NEB SCH ×6 (00:36→20:52)
[2019-04-03] MEDS: DILTIAZEM HCL/D5W 125 MG/125 ML RTUINJ IV PRN ×3 (01:59→23:01)
[2019-04-03] MEDS: HEPARIN SOD (PORCINE) 5,000 UNIT/ML 1 ML VIAL SUBCUT SCH ×3 (05:09→21:45)
[2019-04-03] MEDS: PANTOPRAZOLE SODIUM 40 MG TABLET.DR PO SCH ×2 (05:09→17:27)
[2019-04-03] MEDS: QUETIAPINE FUMARATE 25 MG TABLET PO SCH ×3 (05:09→21:46)
[2019-04-03 06:22] LABS: ABSOLUTE EOSINOPHILS # (AUTO) 0.1 10^3/uL (0.0-0.6); ABSOLUTE LYMPHOCYTES (AUTO) 0.8 10^3/uL (0.5-4.7); ABSOLUTE MONOCYTES (AUTO) 0.7 10^3/uL (0.1-1.4); ABSOLUTE NEUT (AUTO) 5.9 10^3/uL (1.7-8.2); BASOPHILS % (AUTO) 0.3 % (0-2); EOSINOPHILS % (AUTO) 1.1 % (0-6); HEMATOCRIT 32.2 % (37.9-51.0); HEMOGLOBIN 10.8 g/dL (13.5-17.0); LYMPHOCYTES % (AUTO) 11.1 % (13-45); MEAN CORPUSCULAR HEMOGLOBIN 31.2 pg (27.0-33.4); MEAN CORPUSCULAR HGB CONC 33.4 g/dL (32.0-36.0); MEAN CORPUSCULAR VOLUME 93 fl (80-97); MONOCYTES % (AUTO) 9.7 % (3-13); PLATELET COUNT 155 10^3/uL (150-450); RED BLOOD COUNT 3.45 10^6/uL (4.35-5.55); RED CELL DISTRIBUTION WIDTH 13.7 % (11.5-14.0); SEGMENTED NEUTROPHILS % (AUTO) 77.8 % (42-78); TOTAL CELLS COUNTED % (AUTO) 100 %; WHITE BLOOD COUNT 7.6 10^3/uL (4.0-10.5)
[2019-04-03 06:42] LABS: ALBUMIN 3.1 g/dL (3.5-5.0); ALKALINE PHOSPHATASE 59 U/L (38-126); ANION GAP 12 (5-19); ASPARTATE AMINO TRANSFERASE 31 U/L (17-59); BILIRUBIN,DIRECT 0.3 mg/dL (0.0-0.4); BILIRUBIN,TOTAL 0.4 mg/dL (0.2-1.3); BLOOD UREA NITROGEN 35 mg/dL (7-20); CALCIUM 8.3 mg/dL (8.4-10.2); CARBON DIOXIDE 24 mmol/L (22-30); CHLORIDE 109 mmol/L (98-107); GLUCOSE 91 mg/dL (75-110); POTASSIUM 3.7 mmol/L (3.6-5.0); TOTAL PROTEIN 6.1 g/dL (6.3-8.2)
[2019-04-03 06:57] LABS: FREE T4 (FREE THYROXINE) 1.16 ng/dL (0.78-2.19)
[2019-04-03 07:11] LABS: THYROID STIMULATING HORMONE 1.88 uIU/mL (0.47-4.68)
[2019-04-03] MEDS ORDERED: DIGOXIN INJ 0.5 MG/2 ML AMPULE IV ONE ×2 (07:44→17:46)
[2019-04-03] MEDS: PHENOBARBITAL 64.8 MG TABLET PO SCH ×2 (09:37→21:46)
[2019-04-03] MEDS: SPIRONOLACTONE 25 MG TABLET PO SCH (09:37)
[2019-04-03] MEDS: SENNOSIDES/DOCUSATE 8.6-50 MG 1 EACH TABLET PO SCH ×2 (09:38→17:27)
[2019-04-03] MEDS: ATORVASTATIN CALCIUM 40 MG TABLET PO SCH ×2 (09:38→21:45)
[2019-04-03] MEDS: FINASTERIDE 5 MG TABLET PO SCH (09:38)
[2019-04-03] MEDS: FUROSEMIDE 20 MG TABLET PO SCH (09:38)
[2019-04-03] MEDS: DOCUSATE SODIUM 100 MG CAPSULE PO SCH ×2 (09:38→17:27)
[2019-04-03] MEDS: TAMSULOSIN HCL 0.4 MG CAP.SR.24H PO SCH (09:38)
[2019-04-03] MEDS: ASPIRIN 325 MG TABLET PO SCH (09:38)
[2019-04-03] MEDS: FERROUS SULFATE 325 MG TABLET PO SCH ×2 (09:38→21:46)
[2019-04-03] MEDS: LOSARTAN POTASSIUM 25 MG TABLET PO SCH (09:40)
[2019-04-03] MEDS ORDERED: SENNOSIDES 17.2 MG PO SCH (10:00)
[2019-04-03] MEDS ORDERED: LACTOSE REDUCED FOOD PO SCH (10:00)
--- NOTE | 2019-04-03 10:01 | PDOC PROGRESS REPORT ---
Subjective Progress Note for:: 04/03/19 Subjective:: JESENIA LÓPEZ is a 78 year old male past medical history of non-oxygen dependent COPD, atrial fibrillation, CHF, hypertension, posterior brain circulation aneurysm, seizure, CAD status post stent, multiple CVA, CKD, urinary retention with chronic Anderson catheter placement x3 years, dementia, who is a resident of assisted at [facility], brought to ED by EMS for evaluation of fever, low appetite, and A. fib RVR. Patient resting in bed seems to be in mild respiratory distress with with audible wheezing and productive cough however alert and oriented x3, does not provide much history due to his dementia, family at bedside stating that as per assisted patient has been having low appetite for the last 3 days and his heart rate has been uncontrolled. Patient denies any chest pain, nausea, vomiting, abdominal pain, headache, vision changes, constipation. In ED he was found to have uncontrolled A. fib, mildly elevated WBC and positive UA. 04/03/2019. No acute events overnight. Patient comfortably sitting in bed no apparent distress, much improved compared to yesterday, alert and and oriented. Family at bedside. As per family patient used to live at a hospice and family was very happy with the care however he was transferred back to an assisted living that they are not happy about. Family would like to would like to transfer patient back to hospice if possible. Reason For Visit: A. FIB RVR,ACUTE RESPIRATORY FAILURE WITH HYPOXIA, Physical Exam Vital Signs: Temp Pulse Resp BP Pulse Ox 98.8 F 122 H 20 160/80 H 96 04/03/19 09:14 04/03/19 09:00 04/03/19 09:00 04/03/19 09:14 04/03/19 09:00 Intake & Output 04/02/19 04/03/19 04/04/19 06:59 06:59 06:59 Intake Total 913 Output Total 450 Balance 463 Weight 79.3 kg General appearance: PRESENT: no acute distress, well-developed, well-nourished Head exam: PRESENT: atraumatic, normocephalic Respiratory exam: PRESENT: crackles, decreased breath sounds, wheezes. ABSENT: rales, rhonchi Cardiovascular exam: PRESENT: irregular rhythm. ABSENT: diastolic murmur, rubs, systolic murmur GI/Abdominal exam: PRESENT: normal bowel sounds, soft. ABSENT: distended, guarding, mass, organolmegaly, rebound, tenderness Neurological exam: PRESENT: alert, awake, oriented to person, oriented to place, oriented to time, CN II-XII grossly intact. ABSENT: motor sensory deficit Results Laboratory Results: 04/03/19 05:41 04/03/19 05:41 04/02/19 04/02/19 04/02/19 13:23 13:23 13:23 WBC 10.8 H RBC 3.74 L Hgb 11.7 L Hct 34.8 L MCV 93 MCH 31.2 MCHC 33.6 RDW 13.6 Plt Count 176 Seg Neutrophils % 78.2 H Sodium 146.1 H Potassium 4.2 Chloride 106 Carbon Dioxide 25 Anion Gap 15 BUN 39 H Creatinine 1.27 H Est GFR ( Amer) > 60 Glucose 107 Lactic Acid 0.9 Calcium 8.9 Magnesium Total Bilirubin 0.5 AST 33 Alkaline Phosphatase 73 Total Protein 7.3 Albumin 3.7 TSH Free T4 Urine Color Urine Appearance Urine pH Ur Specific [place] Urine Protein Urine Glucose (UA) Urine Ketones Urine Blood 04/02/19 04/02/19 04/02/19 13:23 17:30 20:00 WBC RBC Hgb Hct MCV MCH MCHC RDW Plt Count Seg Neutrophils % Sodium Potassium Chloride Carbon Dioxide Anion Gap BUN Creatinine Est GFR ( Amer) Glucose Lactic Acid 1.5 1.9 Calcium Magnesium Total Bilirubin AST Alkaline Phosphatase Total Protein Albumin TSH Free T4 Urine Color YELLOW Urine Appearance TURBID Urine pH 9.0 Ur Specific [place] 1.027 Urine Protein >=500 H Urine Glucose (UA) NEGATIVE Urine Ketones NEGATIVE Urine Blood NEGATIVE 04/03/19 04/03/19 04/03/19 05:41 05:41 05:41 WBC 7.6 RBC 3.45 L Hgb 10.8 L Hct 32.2 L MCV 93 MCH 31.2 MCHC 33.4 RDW 13.7 Plt Count 155 Seg Neutrophils % 77.8 Sodium 144.5 Potassium 3.7 Chloride 109 H Carbon Dioxide 24 Anion Gap 12 BUN 35 H Creatinine 1.31 H Est GFR ( Amer) > 60 Glucose 91 Lactic Acid Calcium 8.3 L Magnesium 2.6 H Total Bilirubin 0.4 AST 31 Alkaline Phosphatase 59 Total Protein 6.1 L Albumin 3.1 L TSH 1.88 Free T4 1.16 Urine Color Urine Appearance Urine pH Ur Specific [place] Urine Protein Urine Glucose (UA) Urine Ketones Urine Blood 04/02/19 04/02/19 04/02/19 12:35 12:35 22:56 Creatine Kinase 174 H CK-MB (CK-2) 0.91 Troponin I 0.049 0.034 NT-Pro-B Natriuret Pep 2870 H 04/03/19 05:41 Creatine Kinase CK-MB (CK-2) Troponin I 0.038 NT-Pro-B Natriuret Pep Impressions: Chest X-Ray 04/02/19 13:15 IMPRESSION: HEART ENLARGED WITHOUT FAILURE. NO OTHER SIGNIFICANT RADIOGRAPHIC FINDING IN THE CHEST. Assessment and Plan - Diagnosis (1) Acute respiratory failure with hypoxia Is this a current diagnosis for this admission?: Yes Plan: Improving. SPO2 WNL on 3 L. Multifactorial. Most likely due to combination of A. fib RVR, COPD exacerbation but underlying CHF. Continue telemetry, duo nebs, IV steroids, empiric IV antibiotics, PRN BiPAP, LABA, LABA, ICS, pulmonary toileting, incentive spirometry, flutter valve. (2) Atrial fibrillation with RVR Is this a current diagnosis for this admission?: Yes Plan: Not rate controlled. Not anticoagulated. TSH WNL. Likely due to underlying acute respiratory failure caused by COPD exacerbation. Continue telemetry, Cardizem drip, monitor vitals. Transition to p.o. Cardizem once appropriate. Received 1 dose of digoxin. If effective will continue scheduled digoxin. If no improvement will consult cardiology. (3) COPD exacerbation Is this a current diagnosis for this admission?: Yes Plan: Non-oxygen dependent COPD. Plan as per #1. (4) Chronic indwelling Anderson catheter Is this a current diagnosis for this admission?: Yes Plan: History of chronic indwelling Anderson catheter due to urinary retention. Anderson replaced on this admission. Continue Anderson care. Outpatient urology follow-up. (5) DNR (do not resuscitate) Is this a current diagnosis for this admission?: Yes Plan: Patient CODE STATUS is DNR. This was confirmed by daughter and were at the bedside. Patient used to be inpatient hospice and patient family happy with the care, patient was transitioned back to assisted living after hospice and the family is not happy with the care that he is receiving. Patient's family would like to pursue hospice care again. Discharge planning has been consulted. (6) UTI (urinary tract infection) Qualifiers: Urinary tract infection type: catheter-associated UTI Indwelling urinary catheter type: indwelling urethral catheter Encounter type: initial encounter Qualified Code(s): T83.511A - Infection and inflammatory reaction due to indwelling urethral catheter, initial encounter; N39.0 - Urinary tract infection, site not specified Is this a current diagnosis for this admission?: Yes Plan: History of recurrent catheter associated UTI. Recurrent UTI due to E. coli, Proteus, Klebsiella and Pseudomonas. Day 2 IV antibiotics. Day 2 IV Zosyn. Cultures no growth so far. Continue empiric broad-spectrum IV antibiotics to cover for above organism. Follow-up urine culture narrow spectrum as per culture finding. (7) Chronic combined systolic and diastolic CHF (congestive heart failure) Is this a current diagnosis for this admission?: Yes Plan: Does not seem to be acutely exacerbated. Appears euvolemic. [id number]. Down from baseline of 5-10,000. Home meds are metoprolol, losartan, Lasix, Spironolactone. Continue telemetry, cardiac diet, ARB, beta-renu, Lasix, Spironolactone. (8) Seizure disorder Is this a current diagnosis for this admission?: Yes Plan: No seizure activity on this hospitalization. Takes phenobarbital at home. Restart home meds. Seizure precaution. (9) Acute kidney injury superimposed on CKD Is this a current diagnosis for this admission?: Yes Plan: Prerenal. Baseline 1-2. Cautious volume resuscitation guided by volume status, avoid nephrotoxic meds. If no improvement will consult nephrology.
[2019-04-03] MEDS: METOPROLOL SUCCINATE 25 MG TAB.SR.24H PO SCH (13:55)
[2019-04-03] MEDS ORDERED: HALOPERIDOL 1 MG TABLET PO PRN (14:00)
[2019-04-03] MEDS: MORPHINE SULFATE 10 MG/5 ML ORAL SOLUTION UDCUP PO PRN (21:44)
[2019-04-03] MEDS: DONEPEZIL HCL 5 MG TABLET PO SCH (21:45)
[2019-04-04] MEDS: LEVALBUTEROL HCL NEB 0.63 MG/3 ML AMPUL NEB SCH ×6 (00:29→20:53)
[2019-04-04] MEDS: HEPARIN SOD (PORCINE) 5,000 UNIT/ML 1 ML VIAL SUBCUT SCH ×3 (05:23→22:11)
[2019-04-04] MEDS: QUETIAPINE FUMARATE 25 MG TABLET PO SCH ×3 (05:23→22:08)
[2019-04-04] MEDS: PANTOPRAZOLE SODIUM 40 MG TABLET.DR PO SCH ×2 (05:23→17:20)
[2019-04-04] MEDS: PIPERACILLIN SODIUM/TAZOBACTAM 3.375 GM in NORMAL SALINE 100 ML IV SCH ×3 (05:24→17:21)
[2019-04-04 06:35] LABS: ANION GAP 12 (5-19); BLOOD UREA NITROGEN 24 mg/dL (7-20); CALCIUM 8.1 mg/dL (8.4-10.2); CARBON DIOXIDE 23 mmol/L (22-30); CHLORIDE 103 mmol/L (98-107); GLUCOSE 94 mg/dL (75-110); POTASSIUM 3.4 mmol/L (3.6-5.0)
[2019-04-04] MEDS ORDERED: POTASSIUM CHLORIDE 10 MEQ TABLET.ER PO ONE (07:36)
[2019-04-04] MEDS: ASPIRIN 325 MG TABLET PO SCH (09:30)
[2019-04-04] MEDS: FINASTERIDE 5 MG TABLET PO SCH (09:30)
[2019-04-04] MEDS: DOCUSATE SODIUM 100 MG CAPSULE PO SCH ×2 (09:30→17:20)
[2019-04-04] MEDS: PHENOBARBITAL 64.8 MG TABLET PO SCH ×2 (09:30→22:07)
[2019-04-04] MEDS: ATORVASTATIN CALCIUM 40 MG TABLET PO SCH ×2 (09:30→22:08)
[2019-04-04] MEDS: TAMSULOSIN HCL 0.4 MG CAP.SR.24H PO SCH (09:30)
[2019-04-04] MEDS: SENNOSIDES/DOCUSATE 8.6-50 MG 1 EACH TABLET PO SCH ×2 (09:30→17:20)
[2019-04-04] MEDS: LOSARTAN POTASSIUM 25 MG TABLET PO SCH (09:31)
[2019-04-04] MEDS: FERROUS SULFATE 325 MG TABLET PO SCH ×2 (09:31→22:09)
[2019-04-04] MEDS: SPIRONOLACTONE 25 MG TABLET PO SCH (09:31)
[2019-04-04] MEDS: METOPROLOL SUCCINATE 25 MG TAB.SR.24H PO SCH (09:31)
[2019-04-04] MEDS: FUROSEMIDE 20 MG TABLET PO SCH (09:31)
--- NOTE | 2019-04-04 11:11 | PDOC PROGRESS REPORT ---
Subjective Progress Note for:: 04/04/19 Subjective:: JESENIA LÓPEZ is a 78 year old male past medical history of non-oxygen dependent COPD, atrial fibrillation, CHF, hypertension, posterior brain circulation aneurysm, seizure, CAD status post stent, multiple CVA, CKD, urinary retention with chronic Anderson catheter placement x3 years, dementia, who is a resident of detention at [facility], brought to ED by EMS for evaluation of fever, low appetite, and A. fib RVR. Patient resting in bed seems to be in mild respiratory distress with with audible wheezing and productive cough however alert and oriented x3, does not provide much history due to his dementia, family at bedside stating that as per detention patient has been having low appetite for the last 3 days and his heart rate has been uncontrolled. Patient denies any chest pain, nausea, vomiting, abdominal pain, headache, vision changes, constipation. In ED he was found to have uncontrolled A. fib, mildly elevated WBC and positive UA. 04/03/2019. No acute events overnight. Patient comfortably sitting in bed no apparent distress, much improved compared to yesterday, alert and and oriented. Family at bedside. As per family patient used to live at a hospice and family was very happy with the care however he was transferred back to an assisted living that they are not happy about. Family would like to would like to transfer patient back to hospice if possible. 04/04/2018. No acute events overnight. Reason For Visit: A. FIB RVR,ACUTE RESPIRATORY FAILURE WITH HYPOXIA, Physical Exam Vital Signs: Temp Pulse Resp BP Pulse Ox 98.3 F 139 H 20 137/69 H 94 04/04/19 08:20 04/04/19 10:00 04/04/19 08:20 04/04/19 10:00 04/04/19 08:20 Intake & Output 04/03/19 04/04/19 04/05/19 06:59 06:59 06:59 Intake Total 913 1490 98 Output Total 450 1450 Balance 463 40 98 Weight 79.3 kg 77.6 kg General appearance: PRESENT: mild distress Head exam: PRESENT: atraumatic, normocephalic Respiratory exam: PRESENT: crackles, decreased breath sounds, prolonged expiratory phas, wheezes. ABSENT: rales, rhonchi Cardiovascular exam: PRESENT: irregular rhythm, tachycardia. ABSENT: diastolic murmur, rubs, systolic murmur GI/Abdominal exam: PRESENT: normal bowel sounds, soft. ABSENT: distended, guarding, mass, organolmegaly, rebound, tenderness Neurological exam: PRESENT: alert, awake, CN II-XII grossly intact. ABSENT: motor sensory deficit Results Laboratory Results: 04/03/19 05:41 04/04/19 05:52 04/04/19 05:52 Sodium 138.3 Potassium 3.4 L Chloride 103 Carbon Dioxide 23 Anion Gap 12 BUN 24 H Creatinine 1.11 Est GFR ( Amer) > 60 Glucose 94 Calcium 8.1 L 04/02/19 13:23 Blood Blood Culture (PCR) - Final Staphylococcus Species 04/02/19 04/02/19 04/02/19 12:35 12:35 22:56 Creatine Kinase 174 H CK-MB (CK-2) 0.91 Troponin I 0.049 0.034 NT-Pro-B Natriuret Pep 2870 H 04/03/19 05:41 Creatine Kinase CK-MB (CK-2) Troponin I 0.038 NT-Pro-B Natriuret Pep Impressions: Chest X-Ray 04/02/19 13:15 IMPRESSION: HEART ENLARGED WITHOUT FAILURE. NO OTHER SIGNIFICANT RADIOGRAPHIC FINDING IN THE CHEST. Assessment and Plan - Diagnosis (1) Acute respiratory failure with hypoxia Is this a current diagnosis for this admission?: Yes Plan: No significant improvement compared to yesterday. SPO2 WNL on 3 L. Multifactorial. Most likely due to combination of A. fib RVR, COPD exacerbation but underlying CHF. Continue telemetry, duo nebs, IV steroids, empiric IV antibiotics, PRN BiPAP, LABA, LABA, ICS, pulmonary toileting, incentive spirometry, flutter valve. (2) Atrial fibrillation with RVR Is this a current diagnosis for this admission?: Yes Plan: Not rate controlled. Not anticoagulated. TSH WNL. Likely due to underlying acute respiratory failure caused by COPD exacerbation. Continue telemetry, Cardizem drip, monitor vitals. Transition to p.o. Cardizem once appropriate. Started on digoxin daily. Consult cardiology for further recommendation. (3) COPD exacerbation Is this a current diagnosis for this admission?: Yes Plan: Non-oxygen dependent COPD. Plan as per #1. (4) Chronic indwelling Anderson catheter Is this a current diagnosis for this admission?: Yes Plan: History of chronic indwelling Anderson catheter due to urinary retention. Anderson replaced on this admission. Continue Anderson care. Outpatient urology follow-up. (5) DNR (do not resuscitate) Is this a current diagnosis for this admission?: Yes Plan: Patient CODE STATUS is DNR. This was confirmed by daughter and were at the bedside. Patient used to be inpatient hospice and patient family happy with the care, patient was transitioned back to assisted living after hospice and the family is not happy with the care that he is receiving. Patient's family would like to pursue hospice care again. Discharge planning has been consulted. (6) UTI (urinary tract infection) Qualifiers: Urinary tract infection type: catheter-associated UTI Indwelling urinary catheter type: indwelling urethral catheter Encounter type: initial encounter Qualified Code(s): T83.511A - Infection and inflammatory reaction due to indwelling urethral catheter, initial encounter; N39.0 - Urinary tract infection, site not specified Is this a current diagnosis for this admission?: Yes Plan: History of recurrent catheter associated UTI. Recurrent UTI due to E. coli, Proteus, Klebsiella and Pseudomonas. Day 3 IV antibiotics. Day 3 IV Zosyn. Blood cultures growing gram-positive cocci in clusters coag negative most likely Staphylococcus epidermidis. Likely contamination. Urine culture growing gram-negative rods. Pending sensitivity. Continue empiric broad-spectrum IV antibiotics to cover for above organism. Follow-up urine culture narrow spectrum as per culture finding. (7) Chronic combined systolic and diastolic CHF (congestive heart failure) Is this a current diagnosis for this admission?: Yes Plan: Does not seem to be acutely exacerbated. Appears euvolemic. [id number]. Down from baseline of 5-10,000. Home meds are metoprolol, losartan, Lasix, Spironolactone. Continue telemetry, cardiac diet, ARB, beta-renu, Lasix, Spironolactone. (8) Seizure disorder Is this a current diagnosis for this admission?: Yes Plan: No seizure activity on this hospitalization. Takes phenobarbital at home. Restart home meds. Seizure precaution. (9) Acute kidney injury superimposed on CKD Is this a current diagnosis for this admission?: Yes Plan: Prerenal. Baseline 1-2. Renal function WNL. DC fluids. Avoid nephrotoxic meds. Monitor volume status and electrolytes replace as needed.
[2019-04-04] MEDS: DILTIAZEM HCL/D5W 125 MG/125 ML RTUINJ IV PRN ×2 (11:24→22:09)
[2019-04-04] MEDS: DIGOXIN INJ 0.5 MG/2 ML AMPULE IV SCH (11:42)
[2019-04-04] MEDS: METHYLPREDNISOLONE INJ 40 MG/1 ML SDV IV SCH ×2 (14:01→22:09)
[2019-04-04] MEDS ORDERED: DIGOXIN INJ 0.5 MG/2 ML AMPULE IV ONE (17:15)
--- NOTE | 2019-04-04 19:04 | PDOC CONSULTATION ---
Consultation-Blank Consultation: CARDIOLOGY CONSULTATION by Dr. Ijeoma Hickey on 04/04/2019. Patient seen at 3:30 PM on 04/04/2019. 60 minutes spent on the patient more than 50% of time spent in direct patient care. History obtained from the patient's daughter since the patient has dementia and can answer only with yes or no to questions asked. REASON FOR CONSULTATION: Atrial fibrillation with rapid ventricular response. CONSULT REQUESTING PHYSICIAN: Dr. Quintana, and hospitalist physician group. HISTORY OF PRESENT ILLNESS: Patient is a 78-year-old male with dementia, senior living resident, with history of COPD, atrial fibrillation chronic, prior history of CVA and history of posterior cerebral aneurysm, hypertension, and coronary artery disease admitted with fever decreased appetite and atrial fibrillation with rapid rate response. The patient denies any chest pain discomfort denies any shortness of breath. He is able to lie down flat in bed. He moves all 4 extremities. He does not appear to be any discomfort. There is no ventricular arrhythmia seen on the monitor. The atrial fibrillation rate is about 110 bpm. He is admitted for acute exacerbation of COPD with hypoxemia, and atrial fibrillation with rapid ventricular response, and urinary tract infection. 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 Past history of CVA. Endocrine Medical History: Denies: Diabetes Mellitus Type 1, Diabetes Mellitus Type 2 GI Medical History: Reports: Diverticulitis, Gastroesophageal Reflux Disease, Hiatal Hernia Denies: Cirrhosis, Hepatitis Musculoskeltal Medical History: Denies: Arthritis, Gout Skin Medical History: Denies: Eczema, Psoriasis Psychiatric Medical History: Reports: Dementia Denies: Bipolar Disorder, Depression Hematology: Denies: Anemia, Bleeding Tendencies GENITOURINARY: Patient has no history of chronic kidney disease. Has an indwelling Anderson catheter. Past Surgical History Past Surgical History: Reports: Cardiac Catheterization, Coronary Stent. Patient has an indwelling Anderson catheter. Social History Smoking Status: Unknown if Ever Smoked Frequency of Alcohol Use: None Hx Recreational Drug Use: No Drugs: None Hx Prescription Drug Abuse: No Family History Family History: Hypertension Parental Family History Reviewed: Yes Children Family History Reviewed: Yes Sibling(s) Family History Reviewed.: Yes Medication/Allergy Home Medications: Aspirin [Aspirin 325 mg Tablet] 325 mg PO DAILY 02/12/17 Atorvastatin Calcium [Lipitor 40 mg Tablet] 40 mg PO Q12 02/12/17 Docusate Sodium [Colace 100 mg Capsule] 100 mg PO BID 02/12/17 Ferrous Sulfate [Feosol 325 mg Tablet] 325 mg PO Q12 02/12/17 Finasteride [Proscar 5 mg Tablet] 5 mg PO DAILY 02/12/17 Furosemide [Lasix 20 mg Tablet] 20 mg PO DAILY 02/12/17 Phenobarbital [Phenobarbital 64.8 mg Tablet] 60 mg PO Q12 02/12/17 Quetiapine Fumarate [Seroquel 25 mg Tablet] 25 mg PO Q8 02/12/17 Tamsulosin HCl [Flomax 0.4 mg Cap.sr] 0.4 mg PO DAILY 02/12/17 Metoprolol Succinate [Toprol Xl 25 mg Tab.sr] 25 mg PO DAILY 30 Days #30 tab.sr.24h 09/04/17 Sennosides [Senna Laxative] 17.2 mg PO BID 30 Days #60 09/04/17 Donepezil HCl [Aricept 5 mg Tablet] 5 mg PO QHS tablet 03/07/18 Famotidine [Pepcid 20 mg Tablet] 20 mg PO QHS 30 Days #30 tablet 05/13/18 Losartan Potassium [Cozaar 25 mg Tablet] 25 mg PO DAILY 30 Days #30 tablet 05/13/18 Spironolactone [Aldactone 25 mg Tablet] 12.5 mg PO DAILY 30 Days #15 tablet 05/13/18 Albuterol Sulfate [Ventolin Hfa 8 gm Mdi (1 Mdi/ER Disp)] 2 puff IH ASDIR PRN 04/02/19 Cranberry Conc/Ascorbic Acid [Cranberry Plus Vitamin C Sftgl] 1 each PO DAILY 04/02/19 Cyanocobalamin (Vitamin B-12) [Vitamin B-12] 1,000 mcg PO DAILY 04/02/19 Guaifenesin [Robitussin Syrup 200 mg/10 ml Ud Cup] 100 mg PO QIDP PRN 04/02/19 Haloperidol [Haldol 1 Mg Tablet] 1 mg PO Q6H PRN 04/02/19 Lactose-Reduced Food [Ensure Liquid] 237 ml PO TID 04/02/19 Lorazepam 0.5 mg PO Q6H PRN 04/02/19 Morphine Sulfate [Roxanol] 5 mg PO Q3H 04/02/19 Ondansetron HCl [Zofran 4 mg Tablet] 1 tab PO Q6H PRN 04/02/19 Resuscitation STATUS: The Patient Is a DNR. His Daughter Is His Surrogate Healthcare decision maker. Allergies/Adverse Reactions: No Known Allergies Allergy (Verified 05/10/18 11:34) Current Medications Generic Name Dose Route Start Last Admin Trade Name Freq PRN Reason Stop Dose Admin Acetaminophen 650 mg 04/02/19 18:09 Tylenol 325 Mg Tablet PO 05/02/19 18:08 Q4HP PRN FEVER >101 Aspirin 325 mg 04/03/19 10:00 04/04/19 09:30 Aspirin 325 Mg Tablet PO 05/03/19 09:59 325 mg DAILY JUDITH Administration Atorvastatin Calcium 40 mg 04/02/19 22:00 04/04/19 09:30 Lipitor 40 Mg Tablet PO 05/02/19 21:59 40 mg Q12 JUDITH Administration Digoxin 0.25 mg 04/04/19 11:45 04/04/19 11:42 Lanoxin Inj 0.5 Mg/2 Ml Ampule IV 05/04/19 11:44 0.25 mg DAILY JUDITH Administration Docusate Sodium 100 mg 04/03/19 10:00 04/04/19 17:20 Colace 100 Mg Capsule PO 05/03/19 09:59 100 mg BID JUDITH Administration Donepezil HCl 5 mg 04/02/19 22:00 04/03/19 21:45 Aricept 5 Mg Tablet PO 05/02/19 21:59 5 mg QHS JUDITH Administration Ferrous Sulfate 325 mg 04/02/19 22:00 04/04/19 09:31 Feosol 325 Mg Tablet PO 05/02/19 21:59 325 mg Q12 JUDITH Administration Finasteride 5 mg 04/03/19 10:00 04/04/19 09:30 Proscar 5 Mg Tablet PO 05/03/19 09:59 5 mg DAILY JUDITH Administration Furosemide 20 mg 04/03/19 10:00 04/04/19 09:31 Lasix 20 Mg Tablet PO 05/03/19 09:59 20 mg DAILY JUDITH Administration Guaifenesin 100 mg 04/02/19 18:13 Robitussin Syrup 200 Mg/10 Ml Ud Cup PO 05/02/19 18:12 QIDP PRN COUGH Haloperidol 1 mg 04/03/19 14:00 Haldol 1 Mg Tablet PO 05/02/19 18:12 Q6HP PRN ANXIETY/AGITATION Heparin Sodium (Porcine) 5,000 unit 04/02/19 22:00 04/04/19 14:01 Heparin Inj 5,000 Units/Ml 1 Ml Vial SUBCUT 05/02/19 21:59 5,000 unit Q8 JUDITH Administration Hydralazine HCl 10 mg 04/02/19 18:16 Apresoline Inj/Pf 20 Mg/1 Ml Sdv IV 05/02/19 18:15 Q3HP PRN Give For Sbp > [150] Diltiazem HCl 125 mg in 125 mls @ 0 mls/hr 04/02/19 17:18 04/04/19 11:24 Cardizem Rtu Inj 125 Mg-D5w 125 Ml Premix IV 05/02/19 17:17 15 mls/hr CONTINUOUS PRN 15 mls/hr THIS MED IS NOT "PRN" Administration Protocol Titrate Piperacillin Sod/Tazobactam 100 mls @ 200 mls/hr 04/02/19 18:30 04/04/19 17:21 Sod 3.375 gm/ Sodium Chloride IV 04/09/19 18:29 200 mls/hr Q6 JUDITH 200 mls/hr Administration Levalbuterol HCl 0.63 mg 04/02/19 18:09 Xopenex Neb 0.63 Mg/3 Ml Ampul NEB 05/02/19 18:08 RTQ6HP PRN SHORTNESS OF BREATH Levalbuterol HCl 0.63 mg 04/02/19 20:00 04/04/19 16:51 Xopenex Neb 0.63 Mg/3 Ml Ampul NEB 05/02/19 19:59 0.63 mg RTQ4 JUDITH Administration Lorazepam 0.5 mg 04/02/19 18:13 Ativan 0.5 Mg Tablet PO 04/09/19 18:12 Q6H PRN ANXIETY/AGITATION Losartan Potassium 25 mg 04/03/19 10:00 04/04/19 09:31 Cozaar 25 Mg Tablet PO 05/03/19 09:59 25 mg DAILY JUDITH Administration Methylprednisolone Sodium Succinate 40 mg 04/04/19 14:00 04/04/19 14:01 Solu-Medrol Inj/Pf 40 Mg/1 Ml Sdv IV 05/04/19 13:59 40 mg Q8 JUDITH Administration Metoprolol Succinate 25 mg 04/03/19 10:00 04/04/19 09:31 Toprol Xl 25 Mg Tab.Sr PO 05/03/19 09:59 25 mg DAILY JUDITH Administration Metoprolol Tartrate 2.5 mg 04/02/19 18:16 04/03/19 01:21 Lopressor Inj/Pf 5 Mg/5 Ml Sdv IV 05/02/19 18:15 2.5 mg Q6HP PRN Administration Give For Hr > [150] Morphine Sulfate 5 mg 04/02/19 21:00 04/03/19 21:44 Morphine 10 Mg/5 Ml Oral Soln Udcup PO 04/09/19 20:59 5 mg Q3H PRN Administration PAIN Ondansetron HCl 4 mg 04/02/19 18:09 Zofran Inj/Pf 4 Mg/2 Ml Sdv IV 05/02/19 18:08 Q4HP PRN FOR NAUSEA/VOMITING Oxycodone/Acetaminophen 1 tab 04/02/19 18:09 Percocet 5-325 Mg Tablet PO 04/09/19 18:08 Q6HP PRN FOR PAIN SCALE 3-5 Pantoprazole Sodium 40 mg 04/03/19 06:00 04/04/19 17:[address] Tablet PO 05/03/19 05:59 40 mg BID@0600,1700 JUDITH Administration Phenobarbital 60 mg 04/02/19 22:00 04/04/19 09:30 Phenobarbital 64.8 Mg Tablet PO 05/02/19 21:59 60 mg Q12 JUDITH Administration Quetiapine Fumarate 25 mg 04/02/19 22:00 04/04/19 14:01 Seroquel 25 Mg Tablet PO 05/02/19 21:59 25 mg Q8 JUDITH Administration Senna/Docusate Sodium 2 each 04/03/19 10:00 04/04/19 17:20 Senna Plus Tablet PO 05/03/19 09:59 2 each BID JUDITH Administration Spironolactone 12.5 mg 04/03/19 10:00 04/04/19 09:31 Aldactone 25 Mg Tablet PO 05/03/19 09:59 12.5 mg DAILY JUDITH Administration Tamsulosin HCl 0.4 mg 04/03/19 10:00 04/04/19 09:30 Flomax 0.4 Mg Cap.Sr PO 05/03/19 09:59 0.4 mg DAILY JUDITH Administration Discontinued Medications Generic Name Dose Route Start Last Admin Trade Name Freq PRN Reason Stop Dose Admin Adenosine 6 mg 04/02/19 16:29 04/02/19 16:39 Adenocard Inj/Pf 6 Mg/2 Ml Sdv IV 04/02/19 16:30 6 mg NOW ONE Administration Digoxin 0.125 mg 04/03/19 07:44 04/03/19 08:09 Lanoxin Inj 0.5 Mg/2 Ml Ampule IV 04/03/19 07:45 0.125 mg NOW ONE Administration Digoxin 0.125 mg 04/03/19 17:46 04/03/19 18:28 Lanoxin Inj 0.5 Mg/2 Ml Ampule IV 04/03/19 17:47 0.125 mg NOW ONE Administration Digoxin 0.125 mg 04/04/19 17:15 04/04/19 17:21 Lanoxin Inj 0.5 Mg/2 Ml Ampule IV 04/04/19 17:16 0.125 mg NOW ONE Administration Diltiazem HCl 15 mg 04/02/19 15:10 04/02/19 15:36 Cardizem Inj 25 Mg/5 Ml Vial IV 04/02/19 15:11 15 mg NOW ONE Administration Haloperidol 1 mg 04/02/19 18:13 Haldol 1 Mg Tablet PO 05/02/19 18:12 Q6H PRN ANXIETY/AGITATION Sodium Chloride 500 mls @ 0 mls/hr 04/02/19 15:14 04/02/19 17:02 Nacl 0.9% 500 Ml Iv Soln IV 04/02/19 15:15 Infused NOW ONE Infusion Wide Open Sodium Chloride 1,000 mls @ 50 mls/hr 04/02/19 18:09 04/02/19 21:52 Nacl 0.9% 1000 Ml Iv Soln IV 05/02/19 18:08 50 mls/hr CONTINUOUS PRN Infusion THIS MED IS NOT "PRN" Patient Own Medication 237 ml 04/03/19 10:00 Lactose-Reduced Food [Ensure Liquid] PO 05/03/19 09:59 TID JUDITH Piperacillin Sod/Tazobactam Sod Confirm 04/02/19 20:23 04/02/19 20:47 Zosyn Inj 3.375 Gm Vial Administered 04/02/19 20:24 Not Given Dose 3.375 gm IV .STK-MED ONE Potassium Chloride 40 meq 04/04/19 07:36 04/04/19 08:04 Klor-Con 10 Meq Tablet Er PO 04/04/19 07:37 40 meq NOW ONE Administration IMPRESSION/RECOMMENDATION: Review of Systems Review of Systems: Not obtainable from the patient due to his dementia. As per the daughter no recent anginal symptoms. No recent symptoms suggestive of heart failure. There is a fever. But the patient is a senior living resident. Hence daughter does not have much input into the patient's review of symptoms. PHYSICAL EXAMINATION: The patient is well-built. Appears to be of his stated age. In no acute distress. Selected Entries 04/04/19 16:19 Temperature 98.3 F Temperature Oral Source Pulse Rate 81 Respiratory 24 H Rate Blood Pressure 102/70 Blood Pressure 80 Mean BP Location Right Arm BP Position Supine O2 Sat by Pulse 91 L Oximetry Oxygen Delivery Room Air Method Head, is atraumatic normocephalic. Eyes, pupils equal round react round regular reactive to light. ENT is negative NECK: Supple there is no JVD. Carotids are equal there is no bruit. There is no lymphadenopathy. There is no goiter. There is no accessory muscle respiration use. LUNGS: There is no wheezing. There are a few rhonchi. There is diminished air entry and prolonged expiration. On percussion there is hyperresonance. HEART: S1-S2 is heard. S1 is of variable intensity. There is no S3 gallop. There is no S4 gallop. There is systolic murmur left sternal border and the apex. There is no rub. ABDOMEN: Soft. There is no paraspinal megaly. Bowel sounds are well heard. EXTRE MITIES: Femorals are diminished there is no femoral bruits. Leg pulses are diminished. There is no pedal edema. There is no DVT or cellulitis. There is no cyanosis or clubbing. [employer]: The patient's conscious awake disoriented pleasantly. He moves all 4 extremities PSYCHIATRIC: The patient does not appear to be agitated or anxious. Full psychiatric exam could not be obtained due to patient's mental status. Labs- Entire Visit 04/02/19 04/02/19 04/02/19 12:35 12:35 13:23 WBC RBC Hgb Hct MCV MCH MCHC RDW Plt Count Lymph % (Auto) [place] % (Auto) Eos % (Auto) Baso % (Auto) Absolute Neuts (auto) Absolute Lymphs (auto) Absolute Monos (auto) Absolute Eos (auto) Absolute Basos (auto) Seg Neutrophils % PT INR Sodium Potassium Chloride Carbon Dioxide Anion Gap BUN Creatinine Est GFR ( Amer) Est GFR (MDRD) Non-Af Glucose POC Glucose Lactic Acid 0.9 Calcium Magnesium Total Bilirubin Direct Bilirubin Neonat Total Bilirubin Neonat Direct Bilirubin Neonat Indirect Bili AST ALT Alkaline Phosphatase Creatine Kinase 174 H CK-MB (CK-2) 0.91 Troponin I 0.049 NT-Pro-B Natriuret Pep 2870 H Total Protein Albumin TSH Free T4 Urine Color Urine Appearance Urine pH Ur Specific [place] Urine Protein Urine Glucose (UA) Urine Ketones Urine Blood Urine Nitrite (Reflex) Urine Bilirubin Urine Urobilinogen Leukocyte Esterase Rfl Urine WBC Triple Phos Crystals Amorphous Sediment Urine Bacteria Urine Ascorbic Acid Digoxin 04/02/19 04/02/19 04/02/19 13:23 13:23 13:23 WBC 10.8 H RBC 3.74 L Hgb 11.7 L Hct 34.8 L MCV 93 MCH 31.2 MCHC 33.6 RDW 13.6 Plt Count 176 Lymph % (Auto) 7.8 L [place] % (Auto) 13.7 H Eos % (Auto) 0.1 Baso % (Auto) 0.2 Absolute Neuts (auto) 8.4 H Absolute Lymphs (auto) 0.8 Absolute Monos (auto) 1.5 H Absolute Eos (auto) 0.0 Absolute Basos (auto) 0.0 Seg Neutrophils % 78.2 H PT 14.9 INR 1.16 Sodium 146.1 H Potassium 4.2 Chloride 106 Carbon Dioxide 25 Anion Gap 15 BUN 39 H Creatinine 1.27 H Est GFR ( Amer) > 60 Est GFR (MDRD) Non-Af 55 L Glucose 107 POC Glucose Lactic Acid Calcium 8.9 Magnesium Total Bilirubin 0.5 Direct Bilirubin 0.4 Neonat Total Bilirubin Not Reportable Neonat Direct Bilirubin Not Reportable Neonat Indirect Bili Not Reportable AST 33 ALT 18 Alkaline Phosphatase 73 Creatine Kinase CK-MB (CK-2) Troponin I NT-Pro-B Natriuret Pep Total Protein 7.3 Albumin 3.7 TSH Free T4 Urine Color Urine Appearance Urine pH Ur Specific [place] Urine Protein Urine Glucose (UA) Urine Ketones Urine Blood Urine Nitrite (Reflex) Urine Bilirubin Urine Urobilinogen Leukocyte Esterase Rfl Urine WBC Triple Phos Crystals Amorphous Sediment Urine Bacteria Urine Ascorbic Acid Digoxin 04/02/19 04/02/19 04/02/19 13:23 13:36 17:30 WBC RBC Hgb Hct MCV MCH MCHC RDW Plt Count Lymph % (Auto) [place] % (Auto) Eos % (Auto) Baso % (Auto) Absolute Neuts (auto) Absolute Lymphs (auto) Absolute Monos (auto) Absolute Eos (auto) Absolute Basos (auto) Seg Neutrophils % PT INR Sodium Potassium Chloride Carbon Dioxide Anion Gap BUN Creatinine Est GFR ( Amer) Est GFR (MDRD) Non-Af Glucose POC Glucose 129 H Lactic Acid 1.5 Calcium Magnesium Total Bilirubin Direct Bilirubin Neonat Total Bilirubin Neonat Direct Bilirubin Neonat Indirect Bili AST ALT Alkaline Phosphatase Creatine Kinase CK-MB (CK-2) Troponin I NT-Pro-B Natriuret Pep Total Protein Albumin TSH Free T4 Urine Color YELLOW Urine Appearance TURBID Urine pH 9.0 Ur Specific [place] 1.027 Urine Protein >=500 H Urine Glucose (UA) NEGATIVE Urine Ketones NEGATIVE Urine Blood NEGATIVE Urine Nitrite (Reflex) POSITIVE H Urine Bilirubin NEGATIVE Urine Urobilinogen NEGATIVE Leukocyte Esterase Rfl MODERATE H Urine WBC 5-10 Triple Phos Crystals MANY Amorphous Sediment TRACE Urine Bacteria 2+ Urine Ascorbic Acid NEGATIVE Digoxin 04/02/19 04/02/19 04/03/19 20:00 22:56 05:41 WBC 7.6 RBC 3.45 L Hgb 10.8 L Hct 32.2 L MCV 93 MCH 31.2 MCHC 33.4 RDW 13.7 Plt Count 155 Lymph % (Auto) 11.1 L [place] % (Auto) 9.7 Eos % (Auto) 1.1 Baso % (Auto) 0.3 Absolute Neuts (auto) 5.9 Absolute Lymphs (auto) 0.8 Absolute Monos (auto) 0.7 Absolute Eos (auto) 0.1 Absolute Basos (auto) 0.0 Seg Neutrophils % 77.8 PT INR Sodium Potassium Chloride Carbon Dioxide Anion Gap BUN Creatinine Est GFR ( Amer) Est GFR (MDRD) Non-Af Glucose POC Glucose Lactic Acid 1.9 Calcium Magnesium Total Bilirubin Direct Bilirubin Neonat Total Bilirubin Neonat Direct Bilirubin Neonat Indirect Bili AST ALT Alkaline Phosphatase Creatine Kinase CK-MB (CK-2) Troponin I 0.034 NT-Pro-B Natriuret Pep Total Protein Albumin TSH Free T4 Urine Color Urine Appearance Urine pH Ur Specific [place] Urine Protein Urine Glucose (UA) Urine Ketones Urine Blood Urine Nitrite (Reflex) Urine Bilirubin Urine Urobilinogen Leukocyte Esterase Rfl Urine WBC Triple Phos Crystals Amorphous Sediment Urine Bacteria Urine Ascorbic Acid Digoxin 04/03/19 04/03/19 04/03/19 05:41 05:41 05:41 WBC RBC Hgb Hct MCV MCH MCHC RDW Plt Count Lymph % (Auto) [place] % (Auto) Eos % (Auto) Baso % (Auto) Absolute Neuts (auto) Absolute Lymphs (auto) Absolute Monos (auto) Absolute Eos (auto) Absolute Basos (auto) Seg Neutrophils % PT INR Sodium 144.5 Potassium 3.7 Chloride 109 H Carbon Dioxide 24 Anion Gap 12 BUN 35 H Creatinine 1.31 H Est GFR ( Amer) > 60 Est GFR (MDRD) Non-Af 53 L Glucose 91 POC Glucose Lactic Acid Calcium 8.3 L Magnesium 2.6 H Total Bilirubin 0.4 Direct Bilirubin 0.3 Neonat Total Bilirubin Not Reportable Neonat Direct Bilirubin Not Reportable Neonat Indirect Bili Not Reportable AST 31 ALT 17 Alkaline Phosphatase 59 Creatine Kinase CK-MB (CK-2) Troponin I 0.038 NT-Pro-B Natriuret Pep Total Protein 6.1 L Albumin 3.1 L TSH 1.88 Free T4 1.16 Urine Color Urine Appearance Urine pH Ur Specific [place] Urine Protein Urine Glucose (UA) Urine Ketones Urine Blood Urine Nitrite (Reflex) Urine Bilirubin Urine Urobilinogen Leukocyte Esterase Rfl Urine WBC Triple Phos Crystals Amorphous Sediment Urine Bacteria Urine Ascorbic Acid Digoxin 04/04/19 04/04/19 05:52 05:52 WBC RBC Hgb Hct MCV MCH MCHC RDW Plt Count Lymph % (Auto) [place] % (Auto) Eos % (Auto) Baso % (Auto) Absolute Neuts (auto) Absolute Lymphs (auto) Absolute Monos (auto) Absolute Eos (auto) Absolute Basos (auto) Seg Neutrophils % PT INR Sodium 138.3 Potassium 3.4 L Chloride 103 Carbon Dioxide 23 Anion Gap 12 BUN 24 H Creatinine 1.11 Est GFR ( Amer) > 60 Est GFR (MDRD) Non-Af > 60 Glucose 94 POC Glucose Lactic Acid Calcium 8.1 L Magnesium Total Bilirubin Direct Bilirubin Neonat Total Bilirubin Neonat Direct Bilirubin Neonat Indirect Bili AST ALT Alkaline Phosphatase Creatine Kinase CK-MB (CK-2) Troponin I NT-Pro-B Natriuret Pep Total Protein Albumin TSH Free T4 Urine Color Urine Appearance Urine pH Ur Specific [place] Urine Protein Urine Glucose (UA) Urine Ketones Urine Blood Urine Nitrite (Reflex) Urine Bilirubin Urine Urobilinogen Leukocyte Esterase Rfl Urine WBC Triple Phos Crystals Amorphous Sediment Urine Bacteria Urine Ascorbic Acid Digoxin 0.41 L Chest X-Ray 04/02/19 13:15 IMPRESSION: HEART ENLARGED WITHOUT FAILURE. NO OTHER SIGNIFICANT RADIOGRAPHIC FINDING IN THE CHEST. EKG: Atrial fibrillation with rapid ventricular response. Cannot exclude old inferior NH. Diffuse nonspecific T changes IMPRESSION/RECOMMENDATION: 1. Atrial fibrillation with rapid ventricular response. Continue the patient on Cardizem at 10 mg/h. In view of soft blood pressure would give the patient digoxin 0.125 mg IV push x1. The rapid ventricle response secondary to the patient's respiratory failure hypoxemia and possibly acute exacerbation of COPD. And urinary tract infection. 2. Acute on chronic respiratory failure with hypoxemia: Continue respiratory treatments and supplemental oxygen. 3. Urinary tract infection: Continue antibiotics. 4. Dehydration: Causing prerenal azotemia. This has been corrected now the GFR is normal. 5. Hypertension: Blood pressure on the lower side. 6. Coronary artery disease: Stable no evidence of non-ST relation NH this admission and no anginal symptoms. 7. History of seizures. No recurrence continue anti-epileptic medication. 8. History of CVA and history of cerebral aneurysm: Seems to be stable. 9. Dementia. Medication reviewed. Medications added. Medical decision making is of high complexity. 60 minutes spent as patient more than 50% of time spent in direct patient care. Medical regimen and management plan discussed with the attending physician. Will follow.
[2019-04-04] MEDS: MORPHINE SULFATE 10 MG/5 ML ORAL SOLUTION UDCUP PO PRN (22:06)
[2019-04-04] MEDS: DONEPEZIL HCL 5 MG TABLET PO SCH (22:08)
[2019-04-05] MEDS: PIPERACILLIN SODIUM/TAZOBACTAM 3.375 GM in NORMAL SALINE 100 ML IV SCH ×4 (00:41→17:29)
[2019-04-05] MEDS: LEVALBUTEROL HCL NEB 0.63 MG/3 ML AMPUL NEB SCH ×6 (00:55→21:30)
[2019-04-05] MEDS: PANTOPRAZOLE SODIUM 40 MG TABLET.DR PO SCH ×2 (06:01→16:46)
[2019-04-05] MEDS: QUETIAPINE FUMARATE 25 MG TABLET PO SCH ×3 (06:01→21:42)
[2019-04-05] MEDS: METHYLPREDNISOLONE INJ 40 MG/1 ML SDV IV SCH ×3 (06:01→21:42)
[2019-04-05] MEDS: HEPARIN SOD (PORCINE) 5,000 UNIT/ML 1 ML VIAL SUBCUT SCH ×3 (06:01→21:42)
[2019-04-05] MEDS: DILTIAZEM HCL/D5W 125 MG/125 ML RTUINJ IV PRN (07:56)
[2019-04-05] MEDS: POTASSIUM CHLORIDE 10 MEQ TABLET.ER PO ONE ×2 (07:56→10:43)
[2019-04-05] MEDS: FUROSEMIDE 20 MG TABLET PO SCH (10:14)
[2019-04-05] MEDS: ATORVASTATIN CALCIUM 40 MG TABLET PO SCH ×2 (10:14→21:42)
[2019-04-05] MEDS: SENNOSIDES/DOCUSATE 8.6-50 MG 1 EACH TABLET PO SCH ×2 (10:14→17:17)
[2019-04-05] MEDS: SPIRONOLACTONE 25 MG TABLET PO SCH (10:14)
[2019-04-05] MEDS: TAMSULOSIN HCL 0.4 MG CAP.SR.24H PO SCH (10:14)
[2019-04-05] MEDS: DOCUSATE SODIUM 100 MG CAPSULE PO SCH ×2 (10:15→17:17)
[2019-04-05] MEDS: FERROUS SULFATE 325 MG TABLET PO SCH ×2 (10:15→21:42)
[2019-04-05] MEDS ORDERED: FUROSEMIDE INJ/PF 40 MG/4 ML SDV IV ONE ×3 (10:15→16:15)
[2019-04-05] MEDS: DIGOXIN INJ 0.5 MG/2 ML AMPULE IV SCH (10:15)
[2019-04-05] MEDS: METOPROLOL SUCCINATE 25 MG TAB.SR.24H PO SCH (10:25)
[2019-04-05] MEDS: LOSARTAN POTASSIUM 25 MG TABLET PO SCH (10:25)
[2019-04-05] MEDS: ASPIRIN 325 MG TABLET PO SCH (10:26)
[2019-04-05] MEDS: FINASTERIDE 5 MG TABLET PO SCH (10:26)
[2019-04-05] MEDS: PHENOBARBITAL 64.8 MG TABLET PO SCH ×3 (10:27→21:42)
[2019-04-05] MEDS ORDERED: POTASSIUM CHLORIDE 10 MEQ TABLET.ER PO ONE (10:30)
[2019-04-05] MEDS ORDERED: DEXTROSE IV ONE (15:07)
[2019-04-05] MEDS ORDERED: DOBUTAMINE IV ONE (15:07)
[2019-04-05] MEDS ORDERED: DOPAMINE HCL/DEXTROSE 5%-WATER 800 MG/250 ML RTUINJ IV ONE (15:11)
[2019-04-05] MEDS ORDERED: DOPAMINE HCL 800 MG/D5W 250 ML IV PRN (15:37)
[2019-04-05] MEDS ORDERED: VANCOMYCIN HCL 0 MG in DEXTROSE 5%-WATER 250 ML IV NR (16:00)
[2019-04-05 16:25] LABS: ABSOLUTE LYMPHOCYTES (AUTO) 0.4 10^3/uL (0.5-4.7); ABSOLUTE MONOCYTES (AUTO) 0.3 10^3/uL (0.1-1.4); ABSOLUTE NEUT (AUTO) 4.3 10^3/uL (1.7-8.2); BASOPHILS % (AUTO) 0.1 % (0-2); HEMATOCRIT 34.5 % (37.9-51.0); HEMOGLOBIN 11.6 g/dL (13.5-17.0); MEAN CORPUSCULAR HGB CONC 33.6 g/dL (32.0-36.0); MEAN CORPUSCULAR VOLUME 92 fl (80-97); MONOCYTES % (AUTO) 6.7 % (3-13); PLATELET COUNT 207 10^3/uL (150-450); RED BLOOD COUNT 3.74 10^6/uL (4.35-5.55); RED CELL DISTRIBUTION WIDTH 13.4 % (11.5-14.0); SEGMENTED NEUTROPHILS % (AUTO) 85.2 % (42-78); TOTAL CELLS COUNTED % (AUTO) 100 %; WHITE BLOOD COUNT 5.1 10^3/uL (4.0-10.5)
[2019-04-05 17:12] LABS: ALBUMIN 3.3 g/dL (3.5-5.0); ALKALINE PHOSPHATASE 56 U/L (38-126); ANION GAP 9 (5-19); ASPARTATE AMINO TRANSFERASE 33 U/L (17-59); BILIRUBIN,DIRECT 0.4 mg/dL (0.0-0.4); BILIRUBIN,TOTAL 0.4 mg/dL (0.2-1.3); BLOOD UREA NITROGEN 24 mg/dL (7-20); CARBON DIOXIDE 24 mmol/L (22-30); CHLORIDE 108 mmol/L (98-107); GLUCOSE 130 mg/dL (75-110); POTASSIUM 4.7 mmol/L (3.6-5.0); TOTAL PROTEIN 6.7 g/dL (6.3-8.2)
[2019-04-05] MEDS ORDERED: DIGOXIN INJ 0.5 MG/2 ML AMPULE ONE (18:35)
--- NOTE | 2019-04-05 18:48 | PDOC PROGRESS REPORT ---
Subjective Progress Note for:: 04/05/19 Subjective:: JESENIA LÓPEZ is a 78 year old male past medical history of non-oxygen dependent COPD, atrial fibrillation, CHF, hypertension, posterior brain circulation aneurysm, seizure, CAD status post stent, multiple CVA, CKD, urinary retention with chronic Anderson catheter placement x3 years, dementia, who is a resident of assisted at [facility], brought to ED by EMS for evaluation of fever, low appetite, and A. fib RVR. Patient resting in bed seems to be in mild respiratory distress with with audible wheezing and productive cough however alert and oriented x3, does not provide much history due to his dementia, family at bedside stating that as per assisted patient has been having low appetite for the last 3 days and his heart rate has been uncontrolled. Patient denies any chest pain, nausea, vomiting, abdominal pain, headache, vision changes, constipation. In ED he was found to have uncontrolled A. fib, mildly elevated WBC and positive UA. 04/03/2019. No acute events overnight. Patient comfortably sitting in bed no apparent distress, much improved compared to yesterday, alert and and oriented. Family at bedside. As per family patient used to live at a hospice and family was very happy with the care however he was transferred back to an assisted living that they are not happy about. Family would like to would like to transfer patient back to hospice if possible. 04/04/2018. No acute events overnight. 04/05/2019. Patient has been hypotensive and tachycardic most so today is received multiple dose of digoxin on top of being on Cardizem drip with no effect on his heart rate, was given 1 dose of IV Lasix and was started on dopa mine drip however pressure still remained in the 90s. Patient does not seem to be in any severe distress, however appears to be somnolent but easily arousable and only oriented to person. Patient is DNR and I have contacted family updated them about his worsening vitals and they have mentioned that they may go ahead and make him [employer] RE[employer], however POA is at work and will not be able to come to the hospital until 8 PM. Meanwhile they want to keep him DNR and continue the current treatment until they are in the hospital and possibly make him [employer]. Reason For Visit: A. FIB RVR,ACUTE RESPIRATORY FAILURE WITH HYPOXIA, Physical Exam Vital Signs: Temp Pulse Resp BP Pulse Ox 97.2 F 130 H 18 116/56 L 94 04/05/19 08:15 04/05/19 18:00 04/05/19 16:53 04/05/19 18:00 04/05/19 16:53 Intake & Output 04/04/19 04/05/19 04/06/19 06:59 06:59 06:59 Intake Total 1490 1632 381 Output Total 1450 2075 600 Balance 40 -443 -219 Weight 77.6 kg 78.7 kg General appearance: PRESENT: mild distress Head exam: PRESENT: atraumatic, normocephalic Respiratory exam: PRESENT: crackles, decreased breath sounds, tachypnea. ABSENT: rales, rhonchi, wheezes Cardiovascular exam: PRESENT: irregular rhythm, tachycardia. ABSENT: diastolic murmur, rubs, systolic murmur GI/Abdominal exam: PRESENT: normal bowel sounds, soft. ABSENT: distended, guarding, mass, organolmegaly, rebound, tenderness Extremities exam: PRESENT: full ROM. ABSENT: calf tenderness, clubbing, pedal edema Neurological exam: PRESENT: altered - Somnolent, easily arousable, oriented to person., oriented to person Results Laboratory Results: 04/05/19 16:13 04/05/19 16:13 04/05/19 04/05/19 16:13 16:13 WBC 5.1 RBC 3.74 L Hgb 11.6 L Hct 34.5 L MCV 92 MCH 31.0 MCHC 33.6 RDW 13.4 Plt Count 207 Seg Neutrophils % 85.2 H Sodium 140.8 Potassium 4.7 Chloride 108 H Carbon Dioxide 24 Anion Gap 9 BUN 24 H Creatinine 1.14 Est GFR ( Amer) > 60 Glucose 130 H Calcium 9.0 Total Bilirubin 0.4 AST 33 Alkaline Phosphatase 56 Total Protein 6.7 Albumin 3.3 L 04/02/19 13:23 Blood Blood Culture (PCR) - Final Staphylococcus Species 04/02/19 04/02/19 04/02/19 12:35 12:35 22:56 Creatine Kinase 174 H CK-MB (CK-2) 0.91 Troponin I 0.049 0.034 NT-Pro-B Natriuret Pep 2870 H 04/03/19 05:41 Creatine Kinase CK-MB (CK-2) Troponin I 0.038 NT-Pro-B Natriuret Pep Impressions: Chest X-Ray 04/02/19 13:15 IMPRESSION: HEART ENLARGED WITHOUT FAILURE. NO OTHER SIGNIFICANT RADIOGRAPHIC FINDING IN THE CHEST. Assessment and Plan - Diagnosis (1) Acute respiratory failure with hypoxia Is this a current diagnosis for this admission?: Yes Plan: Worsening compared to yesterday. Diffuse crackles and poor air entry on physical examination. SPO2 WNL on 3 L. Multifactorial. Most likely due to combination of A. fib RVR, COPD exacerbation but underlying CHF. Continue telemetry, duo nebs, IV steroids, empiric IV antibiotics, PRN BiPAP, LABA, LABA, ICS, pulmonary toileting, incentive spirometry, flutter valve. (2) Hypotension Qualifiers: Hypotension type: unspecified hypotension type Qualified Code(s): I95.9 - Hypotension, unspecified Is this a current diagnosis for this admission?: Yes Plan: WBC WNL, afebrile, unlikely this hypotension is related to underlying infectious process. Most likely due to severely uncontrolled A. fib RVR complicated by underlying COPD and CHF exacerbation. Continue dopamine drip, continue treating underlying CHF, COPD and A. fib RVR. (3) Atrial fibrillation with RVR Is this a current diagnosis for this admission?: Yes Plan: Uncontrolled. Not anticoagulated. TSH WNL. Likely due to underlying acute respiratory failure caused by COPD exacerbation. Continue telemetry, Cardizem drip, daily and PRN digoxin, monitor vitals. Transition to p.o. Cardizem once appropriate. Consulted cardiology. Recommendations noted. (4) COPD exacerbation Is this a current diagnosis for this admission?: Yes Plan: Non-oxygen dependent COPD. Plan as per #1. (5) Chronic indwelling Anderson catheter Is this a current diagnosis for this admission?: Yes Plan: History of chronic indwelling Anderson catheter due to urinary retention. Anderson replaced on this admission. Continue Anderson care. Outpatient urology follow-up. (6) DNR (do not resuscitate) Is this a current diagnosis for this admission?: Yes Plan: Patient CODE STATUS is DNR. This was confirmed by daughter and were at the bedside. Patient used to be inpatient hospice and patient family happy with the care, patient was transitioned back to assisted living after hospice and the family is not happy with the care that he is receiving. Patient's family would like to pursue hospice care again. Discharge planning has been consulted. (7) UTI (urinary tract infection) Qualifiers: Urinary tract infection type: catheter-associated UTI Indwelling urinary catheter type: indwelling urethral catheter Encounter type: initial encounter Qualified Code(s): T83.511A - Infection and inflammatory reaction due to indwelling urethral catheter, initial encounter; N39.0 - Urinary tract infection, site not specified Is this a current diagnosis for this admission?: Yes Plan: History of recurrent catheter associated UTI. Recurrent UTI due to E. coli, Proteus, Klebsiella and Pseudomonas. Day 3 IV antibiotics. Day 3 IV Zosyn. Blood cultures growing gram-positive cocci in clusters coag negative most likely Staphylococcus epidermidis. Likely contamination. Urine culture growing gram-negative rods. Pending sensitivity. Continue empiric broad-spectrum IV antibiotics to cover for above organism. Follow-up urine culture narrow spectrum as per culture finding. (8) Chronic combined systolic and diastolic CHF (congestive heart failure) Is this a current diagnosis for this admission?: Yes Plan: Crackles on physical evaluation. No JVD or lower extremity edema. [id number]. Down from baseline of 5-10,000. Home meds are metoprolol, losartan, Lasix, Spironolactone. Continue telemetry, cardiac diet, ARB, beta-renu, Lasix, Spironolactone. Hold antihypertensive meds due to hypotension. (9) Seizure disorder Is this a current diagnosis for this admission?: Yes Plan: No seizure activity on this hospitalization. Takes phenobarbital at home. Restart home meds. Seizure precaution. (10) Acute kidney injury superimposed on CKD Is this a current diagnosis for this admission?: Yes Plan: Prerenal. Baseline 1-2. Renal function WNL. DC fluids. Avoid nephrotoxic meds. Monitor volume status and electrolytes replace as needed.
[2019-04-05] MEDS ORDERED: DIGOXIN INJ 0.5 MG/2 ML AMPULE IV ONE (19:15)
--- NOTE | 2019-04-05 19:17 | Progress Note ---
Provider Note Provider Note: CARDIOLOGY PROGRESS NOTE by Dr. Ijeoma Leung on 04/05/2019. OBJECTIVE: The patient is more lethargic and more obtunded. He also has significant difficulty breathing. He is also hypotensive and he is in atrial fibrillation with rapid ventricular response. There is no ventricular arrhythmia seen on the monitor. PHYSICAL EXAMINATION: The patient appears to be chronically ill and in mild to moderate respiratory distress. Selected Entries 04/05/19 04/05/19 04/05/19 15:09 16:00 16:53 Temperature 97.3 F Pulse Rate 118 H Respiratory 18 Rate Blood Pressure 86/52 L O2 Sat by Pulse 94 Oximetry Fraction of 21 Inspired Oxygen (FIO2) Head, is atraumatic normocephalic. Eyes, pupils equal round react round regular reactive to light. ENT is negative NECK: Supple there is no JVD. Carotids are equal there is no bruit. There is no lymphadenopathy. There is no goiter. There is no accessory muscle respiration use. LUNGS: There is extensive bilateral rhonchi and wheezing. Rhonchi. There is diminished air entry and prolonged expiration. On percussion there is hyperresonance. HEART: S1-S2 is heard. S1 is of variable intensity. There is no S3 gallop. There is no S4 gallop. There is systolic murmur left sternal border and the apex. There is no rub. ABDOMEN: Soft. There is no paraspinal megaly. Bowel sounds are well heard. EXTREMITIES: Femorals are diminished there is no femoral bruits. Leg pulses are diminished. There is no pedal edema. There is no DVT or cellulitis. There is no cyanosis or clubbing. SILVERLIGHT DEVELOPER: The patient's conscious awake disoriented pleasantly. He moves all 4 extremities PSYCHIATRIC: The patient does not appear to be agitated or anxious. Full psychiatric exam could not be obtained due to patient's mental status. Labs- All tests 24 hr 04/05/19 04/05/19 04/05/19 15:05 16:13 16:13 WBC 5.1 RBC 3.74 L Hgb 11.6 L Hct 34.5 L MCV 92 MCH 31.0 MCHC 33.6 RDW 13.4 Plt Count 207 Lymph % (Auto) 8.0 L Pershing % (Auto) 6.7 Eos % (Auto) 0.0 Baso % (Auto) 0.1 Absolute Neuts (auto) 4.3 Absolute Lymphs (auto) 0.4 L Absolute Monos (auto) 0.3 Absolute Eos (auto) 0.0 Absolute Basos (auto) 0.0 Seg Neutrophils % 85.2 H Sodium 140.8 Potassium 4.7 Chloride 108 H Carbon Dioxide 24 Anion Gap 9 BUN 24 H Creatinine 1.14 Est GFR ( Amer) > 60 Est GFR (MDRD) Non-Af > 60 Glucose 130 H POC Glucose 155 H Calcium 9.0 Total Bilirubin 0.4 Direct Bilirubin 0.4 Neonat Total Bilirubin Not Reportable Neonat Direct Bilirubin Not Reportable Neonat Indirect Bili Not Reportable AST 33 ALT 26 Alkaline Phosphatase 56 Total Protein 6.7 Albumin 3.3 L Chest X-Ray 04/02/19 13:15 IMPRESSION: HEART ENLARGED WITHOUT FAILURE. NO OTHER SIGNIFICANT RADIOGRAPHIC FINDING IN THE CHEST. IMPRESSION/RECOMMENDATION: 1. Hypotension: This is secondary to sepsis and atrial fibrillation with rapid ventricular response. Would recommend starting the patient on the mean to keep the blood pressure up. Continue antibiotics 2. Atrial fibrillation with rapid ventricular response. Continue the patient on Cardizem at 10 mg/h. In view of soft blood pressure would give the patient digoxin 0.125 mg IV push x1. The rapid ventricle response secondary to the patient's respiratory failure hypoxemia and possibly acute exacerbation of COPD. And urinary tract infection. 3. Acute on chronic respiratory failure with hypoxemia: Continue respiratory treatments and supplemental oxygen. 4. Urinary tract infection: Continue antibiotics. 5. Dehydration: Causing prerenal azotemia. This has been corrected now the GFR is normal. 6. Hypertension: Blood pressure on the lower side. 7. Coronary artery disease: Stable no evidence of non-ST relation NV this admission and no anginal symptoms. 8. History of seizures. No recurrence continue anti-epileptic medication. 9. History of CVA and history of cerebral aneurysm: Seems to be stable. 10. Dementia. Medications reviewed. Dopamine added. Medical decision making is of high complexity. Discussed the case with attending physician. Medical decision making is of high complexity. 40-minute visit spent on this patient with more than 50% time spent in direct patient care. Patient's prognosis very poor.
[2019-04-05] MEDS ORDERED: VANCOMYCIN HCL 1,500 MG in DEXTROSE 5%-WATER 250 ML IV SCH (20:00)
[2019-04-05] MEDS: ACETYLCYSTEINE 10% NEB 400 MG/4 ML VIAL NEB SCH (21:30)
[2019-04-05] MEDS: DONEPEZIL HCL 5 MG TABLET PO SCH (21:42)
[2019-04-06] MEDS: DILTIAZEM HCL/D5W 125 MG/125 ML RTUINJ IV PRN ×2 (00:05→11:51)
[2019-04-06] MEDS: PIPERACILLIN SODIUM/TAZOBACTAM 3.375 GM in NORMAL SALINE 100 ML IV SCH ×3 (00:06→12:55)
[2019-04-06] MEDS: LEVALBUTEROL HCL NEB 0.63 MG/3 ML AMPUL NEB SCH ×4 (01:22→11:50)
[2019-04-06] MEDS: PANTOPRAZOLE SODIUM 40 MG TABLET.DR PO SCH (06:04)
[2019-04-06] MEDS: QUETIAPINE FUMARATE 25 MG TABLET PO SCH ×2 (06:04→13:05)
[2019-04-06] MEDS: HEPARIN SOD (PORCINE) 5,000 UNIT/ML 1 ML VIAL SUBCUT SCH ×2 (06:07→13:04)
[2019-04-06] MEDS: METHYLPREDNISOLONE INJ 40 MG/1 ML SDV IV SCH (06:07)
[2019-04-06] MEDS: ACETYLCYSTEINE 10% NEB 400 MG/4 ML VIAL NEB SCH (09:02)
[2019-04-06] MEDS: DOCUSATE SODIUM 100 MG CAPSULE PO SCH (09:48)
[2019-04-06] MEDS: LOSARTAN POTASSIUM 25 MG TABLET PO SCH (09:48)
[2019-04-06] MEDS: FINASTERIDE 5 MG TABLET PO SCH (09:49)
[2019-04-06] MEDS: SENNOSIDES/DOCUSATE 8.6-50 MG 1 EACH TABLET PO SCH (09:49)
[2019-04-06] MEDS: METOPROLOL SUCCINATE 25 MG TAB.SR.24H PO SCH (09:49)
[2019-04-06] MEDS: ASPIRIN 325 MG TABLET PO SCH (09:50)
[2019-04-06] MEDS: FERROUS SULFATE 325 MG TABLET PO SCH (09:51)
[2019-04-06] MEDS: ATORVASTATIN CALCIUM 40 MG TABLET PO SCH (09:51)
[2019-04-06] MEDS: DIGOXIN INJ 0.5 MG/2 ML AMPULE IV SCH (09:51)
[2019-04-06] MEDS: FUROSEMIDE 20 MG TABLET PO SCH (09:51)
[2019-04-06] MEDS: SPIRONOLACTONE 25 MG TABLET PO SCH (09:51)
[2019-04-06] MEDS: PHENOBARBITAL 64.8 MG TABLET PO SCH (09:51)
[2019-04-06] MEDS: TAMSULOSIN HCL 0.4 MG CAP.SR.24H PO SCH (09:51)
[2019-04-06] MEDS ORDERED: MORPHINE SULFATE 10 MG/ML INJ IV PRN (13:52)
--- NOTE | 2019-04-06 13:59 | PDOC PROGRESS REPORT ---
Subjective Progress Note for:: 04/06/19 Subjective:: 78 year old male past medical history of non-oxygen dependent COPD, atrial fibrillation, CHF, hypertension, posterior brain circulation aneurysm, seizure, CAD status post stent, multiple CVA, CKD, urinary retention with chronic Anderson catheter placement x3 years, dementia, who is a resident of penitentiary at [facility], brought to ED by EMS for evaluation of fever, low appetite, and A. fib RVR. Patient resting in bed seems to be in mild respiratory distress with with audible wheezing and productive cough however alert and oriented x3, does not provide much history due to his dementia, family at bedside stating that as per penitentiary patient has been having low appetite for the last 3 days and his heart rate has been uncontrolled. Patient denies any chest pain, nausea, vomiting, abdominal pain, headache, vision changes, constipation. In ED he was found to have uncontrolled A. fib, mildly elevated WBC and positive UA. 04/03/2019. No acute events overnight. Patient comfortably sitting in bed no apparent distress, much improved compared to yesterday, alert and and oriented. Family at bedside. As per family patient used to live at a hospice and family was very happy with the care however he was transferred back to an assisted living that they are not happy about. Family would like to would like to transfer patient back to hospice if possible. 04/04/2018. No acute events overnight. 04/05/2019. Patient has been hypotensive and tachycardic most so today is received multiple dose of digoxin on top of being on Cardizem drip with no effect on his heart rate, was given 1 dose of IV Lasix and was started on dopamine drip however pressure still remained in the 90s. Patient does not seem to be in any severe distress, however appears to be somnolent but easily arousable and only oriented to person. Patient is DNR and I have contacted family updated them about his worsening vitals and they have mentioned that they may go ahead and make him [employer], however POA is at work and will not be able to come to the hospital until 8 PM. Meanwhile they want to keep him DNR and continue the current treatment until they are in the hospital and possibly make him [employer]ATORY INTERNSHIP. 04/06/2019 family decided to make him comfort care measures only. His CODE STATUS is already DNR/DNI. They are requesting for hospice consult. Reason For Visit: A. FIB RVR,ACUTE RESPIRATORY FAILURE WITH HYPOXIA, Physical Exam Vital Signs: Temp Pulse Resp BP Pulse Ox 97.3 F 105 H 18 101/74 93 04/06/19 03:53 04/06/19 11:51 04/06/19 11:51 04/06/19 11:00 04/06/19 11:51 Intake & Output 04/05/19 04/06/19 04/07/19 06:59 06:59 06:59 Intake Total 1632 1257 558 Output Total 2075 2400 600 Balance -443 -1143 -42 Weight 78.7 kg 76.4 kg General appearance: PRESENT: mild distress, obese Head exam: PRESENT: atraumatic Eye exam: PRESENT: PERRLA Mouth exam: PRESENT: moist, tongue midline Teeth exam: PRESENT: poor dentation Neck exam: ABSENT: carotid bruit, JVD, lymphadenopathy, thyromegaly Respiratory exam: PRESENT: decreased breath sounds Cardiovascular exam: PRESENT: irregular rhythm, tachycardia GI/Abdominal exam: PRESENT: normal bowel sounds, soft. ABSENT: distended, guarding, mass, organolmegaly, rebound, tenderness Rectal exam: PRESENT: deferred Extremities exam: PRESENT: full ROM. ABSENT: calf tenderness, clubbing, pedal edema Neurological exam: PRESENT: alert, awake, CN II-XII grossly intact Psychiatric exam: PRESENT: appropriate affect, normal mood. ABSENT: homicidal ideation, suicidal ideation Results Laboratory Results: 04/05/19 16:13 04/05/19 16:13 04/05/19 04/05/19 16:13 16:13 WBC 5.1 RBC 3.74 L Hgb 11.6 L Hct 34.5 L MCV 92 MCH 31.0 MCHC 33.6 RDW 13.4 Plt Count 207 Seg Neutrophils % 85.2 H Sodium 140.8 Potassium 4.7 Chloride 108 H Carbon Dioxide 24 Anion Gap 9 BUN 24 H Creatinine 1.14 Est GFR ( Amer) > 60 Glucose 130 H Calcium 9.0 Total Bilirubin 0.4 AST 33 Alkaline Phosphatase 56 Total Protein 6.7 Albumin 3.3 L 04/02/19 13:23 Blood Blood Culture (PCR) - Final Staphylococcus Species 04/02/19 13:23 Blood Blood Culture - Final Staphylococcus Lugdunensis 1204/02/19 04/02/19 12:35 12:35 22:56 Creatine Kinase 174 H CK-MB (CK-2) 0.91 Troponin I 0.049 0.034 NT-Pro-B Natriuret Pep 2870 H 04/03/19 05:41 Creatine Kinase CK-MB (CK-2) Troponin I 0.038 NT-Pro-B Natriuret Pep Impressions: Chest X-Ray 04/02/19 13:15 IMPRESSION: HEART ENLARGED WITHOUT FAILURE. NO OTHER SIGNIFICANT RADIOGRAPHIC FINDING IN THE CHEST. Assessment and Plan - Diagnosis (1) Acute respiratory failure with hypoxia Is this a current diagnosis for this admission?: Yes Plan: Worsening compared to yesterday. Diffuse crackles and poor air entry on physical examination. SPO2 WNL on 3 L. Multifactorial. Most likely due to combination of A. fib RVR, COPD exacerbation but underlying CHF. Continue telemetry, duo nebs, IV steroids, empiric IV antibiotics, PRN BiPAP, LABA, LABA, ICS, pulmonary toileting, incentive spirometry, flutter valve. (2) Atrial fibrillation with RVR Is this a current diagnosis for this admission?: Yes Plan: Uncontrolled. Not anticoagulated. TSH WNL. Likely due to underlying acute respiratory failure caused by COPD exacerbation. Continue telemetry, Cardizem drip, daily and PRN digoxin, monitor vitals. Transition to p.o. Cardizem once appropriate. Consulted cardiology. Recommendations noted. (3) COPD exacerbation Is this a current diagnosis for this admission?: Yes Plan: Non-oxygen dependent COPD. Plan as per #1. (4) Chronic indwelling Anderson catheter Is this a current diagnosis for this admission?: Yes Plan: History of chronic indwelling Anderson catheter due to urinary retention. Anderson replaced on this admission. Continue Anderson care. Outpatient urology follow-up. (5) DNR (do not resuscitate) Is this a current diagnosis for this admission?: Yes Plan: Patient CODE STATUS is DNR. This was confirmed by daughter and were at the bedside. Patient used to be inpatient hospice and patient family happy with the care, patient was transitioned back to assisted living after hospice and the family is not happy with the care that he is receiving. Patient's family would like to pursue hospice care again. Discharge planning has been consulted. (6) UTI (urinary tract infection) Qualifiers: Urinary tract infection type: catheter-associated UTI Indwelling urinary catheter type: indwelling urethral catheter Encounter type: initial encounter Qualified Code(s): T83.511A - Infection and inflammatory reaction due to indwelling urethral catheter, initial encounter; N39.0 - Urinary tract infection, site not specified Is this a current diagnosis for this admission?: Yes Plan: History of recurrent catheter associated UTI. Recurrent UTI due to E. coli, Proteus, Klebsiella and Pseudomonas. Day 3 IV antibiotics. Day 3 IV Zosyn. Blood cultures growing gram-positive cocci in clusters coag negative most likely Staphylococcus epidermidis. Likely contamination. Urine culture growing gram-negative rods. Pending sensitivity. Continue empiric broad-spectrum IV antibiotics to cover for above organism. Follow-up urine culture narrow spectrum as per culture finding. (7) Hypotension Qualifiers: Hypotension type: unspecified hypotension type Qualified Code(s): I95.9 - Hypotension, unspecified Is this a current diagnosis for this admission?: Yes Plan: WBC WNL, afebrile, unlikely this hypotension is related to underlying infectious process. Most likely due to severely uncontrolled A. fib RVR complicated by underlying COPD and CHF exacerbation. Continue dopamine drip, continue treating underlying CHF, COPD and A. fib RVR. (8) Chronic combined systolic and diastolic CHF (congestive heart failure) Is this a current diagnosis for this admission?: Yes Plan: Crackles on physical evaluation. No JVD or lower extremity edema. [id number]. Down from baseline of 5-10,000. Home meds are metoprolol, losartan, Lasix, Spironolactone. Continue telemetry, cardiac diet, ARB, beta-renu, Lasix, Spironolactone. Hold antihypertensive meds due to hypotension. (9) Seizure disorder Is this a current diagnosis for this admission?: Yes Plan: No seizure activity on this hospitalization. Takes phenobarbital at home. Restart home meds. Seizure precaution. (10) Need for comfort care Is this a current diagnosis for this admission?: Yes Plan: 04/06/2019 discussed the plan of care with the family members in the morning and also in the afternoon after the patient sent came here from [place] after a long prolonged discussion of the present condition poor prognosis , patients critical condition family decided to make him comfort care measures only. There is also requesting for hospice referral. Will place orders for comfort care measures including IV morphine, IV Ativan and scopolamine patch.
[2019-04-06] MEDS: LORAZEPAM INJ 2 MG/1 ML VIAL IV PRN ×4 (14:34→23:33)
[2019-04-06] MEDS ORDERED: SCOPOLAMINE HYDROBROMIDE 1.5 MG PATCH.TD72 TD SCH (15:00)
[2019-04-06] MEDS: MORPHINE SULFATE 10 MG/ML INJ IV PRN ×3 (16:29→23:33)
[2019-04-07] MEDS: MORPHINE SULFATE 10 MG/ML INJ IV PRN ×5 (05:54→17:34)
[2019-04-07] MEDS: LORAZEPAM INJ 2 MG/1 ML VIAL IV PRN ×6 (05:54→18:27)
--- NOTE | 2019-04-07 09:22 | PDOC PROGRESS REPORT ---
Subjective Progress Note for:: 04/07/19 Subjective:: 78 year old male past medical history of non-oxygen dependent COPD, atrial fibrillation, CHF, hypertension, posterior brain circulation aneurysm, seizure, CAD status post stent, multiple CVA, CKD, urinary retention with chronic Anderson catheter placement x3 years, dementia, who is a resident of alf at [facility], brought to ED by EMS for evaluation of fever, low appetite, and A. fib RVR. Patient resting in bed seems to be in mild respiratory distress with with audible wheezing and productive cough however alert and oriented x3, does not provide much history due to his dementia, family at bedside stating that as per alf patient has been having low appetite for the last 3 days and his heart rate has been uncontrolled. Patient denies any chest pain, nausea, vomiting, abdominal pain, headache, vision changes, constipation. In ED he was found to have uncontrolled A. fib, mildly elevated WBC and positive UA. 04/03/2019. No acute events overnight. Patient comfortably sitting in bed no apparent distress, much improved compared to yesterday, alert and and oriented. Family at bedside. As per family patient used to live at a hospice and family was very happy with the care however he was transferred back to an assisted living that they are not happy about. Family would like to would like to transfer patient back to hospice if possible. 04/04/2018. No acute events overnight. 04/05/2019. Patient has been hypotensive and tachycardic most so today is received multiple dose of digoxin on top of being on Cardizem drip with no effect on his heart rate, was given 1 dose of IV Lasix and was started on dopamine drip however pressure still remained in the 90s. Patient does not seem to be in any severe distress, however appears to be somnolent but easily arousable and only oriented to person. 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 04/06/2019 family decided to make him comfort care measures only. His CODE STATUS is already DNR/DNI. They are requesting for hospice consult. 04/07/2019-as per the family request patient is on comfort care measures only. Receiving IV morphine, IV Ativan on PRN basis and also scopolamine patch. Hospice referral was made. Reason For Visit: A. FIB RVR,ACUTE RESPIRATORY FAILURE WITH HYPOXIA, Physical Exam Vital Signs: Temp Pulse Resp BP Pulse Ox 97.3 F 142 H 16 107/61 94 04/07/19 00:43 04/07/19 02:00 04/07/19 00:43 04/07/19 00:43 04/07/19 00:43 Intake & Output 04/06/19 04/07/19 04/08/19 06:59 06:59 06:59 Intake Total 1257 658 Output Total 2400 1250 Balance -1143 -592 Weight 76.4 kg 78.4 kg General appearance: PRESENT: no acute distress, obese Head exam: PRESENT: atraumatic Eye exam: PRESENT: other - Pulse are constricted but reactive. Mouth exam: PRESENT: moist, tongue midline Teeth exam: PRESENT: poor dentation Neck exam: ABSENT: carotid bruit, JVD, lymphadenopathy, thyromegaly Respiratory exam: PRESENT: decreased breath sounds Cardiovascular exam: PRESENT: tachycardia GI/Abdominal exam: PRESENT: normal bowel sounds, soft. ABSENT: distended, guarding, mass, organolmegaly, rebound, tenderness Rectal exam: PRESENT: deferred Neurological exam: PRESENT: other - Portably in the bed not communicative. Results Laboratory Results: 04/05/19 16:13 04/05/19 16:13 04/02/19 13:23 Blood Blood Culture (PCR) - Final Staphylococcus Species 04/02/19 13:23 Blood Blood Culture - Final Staphylococcus Lugdunensis 04/02/19 04/02/19 04/02/19 12:35 12:35 22:56 Creatine Kinase 174 H CK-MB (CK-2) 0.91 Troponin I 0.049 0.034 NT-Pro-B Natriuret Pep 2870 H 04/03/19 05:41 Creatine Kinase CK-MB (CK-2) Troponin I 0.038 NT-Pro-B Natriuret Pep Impressions: Chest X-Ray 04/02/19 13:15 IMPRESSION: HEART ENLARGED WITHOUT FAILURE. NO OTHER SIGNIFICANT RADIOGRAPHIC FINDING IN THE CHEST. Assessment and Plan - Diagnosis (1) Acute respiratory failure with hypoxia Is this a current diagnosis for this admission?: Yes Plan: Worsening compared to yesterday. Diffuse crackles and poor air entry on physical examination. SPO2 WNL on 3 L. Multifactorial. Most likely due to combination of A. fib RVR, COPD exacerbation but underlying CHF. Continue telemetry, duo nebs, IV steroids, empiric IV antibiotics, PRN BiPAP, LABA, LABA, ICS, pulmonary toileting, incentive spirometry, flutter valve. (2) Atrial fibrillation with RVR Is this a current diagnosis for this admission?: Yes Plan: Uncontrolled. Not anticoagulated. TSH WNL. Likely due to underlying acute respiratory failure caused by COPD exacerbation. Continue telemetry, Cardizem drip, daily and PRN digoxin, monitor vitals. Transition to p.o. Cardizem once appropriate. Consulted cardiology. Recommendations noted. (3) COPD exacerbation Is this a current diagnosis for this admission?: Yes Plan: Non-oxygen dependent COPD. Plan as per #1. (4) Chronic indwelling Anderson catheter Is this a current diagnosis for this admission?: Yes Plan: History of chronic indwelling Anderson catheter due to urinary retention. Anderson replaced on this admission. Continue Anderson care. Outpatient urology follow-up. (5) DNR (do not resuscitate) Is this a current diagnosis for this admission?: Yes Plan: Patient CODE STATUS is DNR. This was confirmed by daughter and were at the bedside. Patient used to be inpatient hospice and patient family happy with the care, patient was transitioned back to assisted living after hospice and the family is not happy with the care that he is receiving. Patient's family would like to pursue hospice care again. Discharge planning has been consulted. (6) UTI (urinary tract infection) Qualifiers: Urinary tract infection type: catheter-associated UTI Indwelling urinary catheter type: indwelling urethral catheter Encounter type: initial encounter Qualified Code(s): T83.511A - Infection and inflammatory reaction due to indwelling urethral catheter, initial encounter; N39.0 - Urinary tract infection, site not specified Is this a current diagnosis for this admission?: Yes Plan: History of recurrent catheter associated UTI. Recurrent UTI due to E. coli, Proteus, Klebsiella and Pseudomonas. Day 3 IV antibiotics. Day 3 IV Zosyn. Blood cultures growing gram-positive cocci in clusters coag negative most likely Staphylococcus epidermidis. Likely contamination. Urine culture growing gram-negative rods. Pending sensitivity. Continue empiric broad-spectrum IV antibiotics to cover for above organism. Follow-up urine culture narrow spectrum as per culture finding. (7) Hypotension Qualifiers: Hypotension type: unspecified hypotension type Qualified Code(s): I95.9 - Hypotension, unspecified Is this a current diagnosis for this admission?: Yes Plan: WBC WNL, afebrile, unlikely this hypotension is related to underlying infectious process. Most likely due to severely uncontrolled A. fib RVR complicated by underlying COPD and CHF exacerbation. Continue dopamine drip, continue treating underlying CHF, COPD and A. fib RVR. (8) Chronic combined systolic and diastolic CHF (congestive heart failure) Is this a current diagnosis for this admission?: Yes Plan: Crackles on physical evaluation. No JVD or lower extremity edema. [id number]. Down from baseline of 5-10,000. Home meds are metoprolol, losartan, Lasix, Spironolactone. Continue telemetry, cardiac diet, ARB, beta-renu, Lasix, Spironolactone. Hold antihypertensive meds due to hypotension. (9) Seizure disorder Is this a current diagnosis for this admission?: Yes Plan: No seizure activity on this hospitalization. Takes phenobarbital at home. Restart home meds. Seizure precaution. (10) Need for comfort care Is this a current diagnosis for this admission?: Yes Plan: 04/06/2019 discussed the plan of care with the family members in the morning and also in the afternoon after the patient sent came here from [place] after a long prolonged discussion of the present condition poor prognosis , patients critical condition family decided to make him comfort care measures only. There is also requesting for hospice referral. Will place orders for comfort care measures including IV morphine, IV Ativan and scopolamine patch. 04/07/2019 hospice referral was made patient is presently on comfort care measures only receiving IV morphine, Ativan on PRN basis.
[2019-04-08] MEDS: MORPHINE SULFATE 10 MG/ML INJ IV PRN ×4 (04:21→19:30)
[2019-04-08] MEDS: LORAZEPAM INJ 2 MG/1 ML VIAL IV PRN ×2 (07:32→18:10)
--- NOTE | 2019-04-08 09:50 | PDOC PROGRESS REPORT ---
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 fib RVR. Patient resting in bed seems to be in mild respiratory distress with with audible wheezing and productive cough however alert and oriented x3, does not provide much history due to his dementia, family at bedside stating that as per custodial patient has been having low appetite for the last 3 days and his heart rate has been uncontrolled. Patient denies any chest pain, nausea, vomiting, abdominal pain, headache, vision changes, constipation. In ED he was found to have uncontrolled A. fib, mildly elevated WBC and positive UA. 04/03/2019. No acute events overnight. Patient comfortably sitting in bed no apparent distress, much improved compared to yesterday, alert and and oriented. Family at bedside. As per family patient used to live at a hospice and family was very happy with the care however he was transferred back to an assisted living that they are not happy about. Family would like to would like to transfer patient back to hospice if possible. 04/04/2018. No acute events overnight. 04/05/2019. Patient has been hypotensive and tachycardic most so today is received multiple dose of digoxin on top of being on Cardizem drip with no effect on his heart rate, was given 1 dose of IV Lasix and was started on dopamine drip however pressure still remained in the 90s. Patient does not seem to be in any severe distress, however appears to be somnolent but easily arousable and only oriented to person. 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 04/06/2019 family decided to make him comfort care measures only. His CODE STATUS is already DNR/DNI. They are requesting for hospice consult. 04/07/2019-as per the family request patient is on comfort care measures only. Receiving IV morphine, IV Ativan on PRN basis and also scopolamine patch. Hospice referral was made. 04/08/2019 patient is on comfort care measures only. Hospice consult was requested. Reason For Visit: A. FIB RVR,ACUTE RESPIRATORY FAILURE WITH HYPOXIA, Physical Exam Vital Signs: Temp Pulse Resp BP Pulse Ox 97.3 F 70 17 152/101 H 95 04/08/19 08:10 04/08/19 08:10 04/08/19 08:10 04/08/19 08:10 04/08/19 08:10 Intake & Output 04/07/19 04/08/19 04/09/19 06:59 06:59 06:59 Intake Total 658 0 Output Total 1250 550 Balance -592 -550 Weight 78.4 kg 76.8 kg General appearance: PRESENT: no acute distress, other - Comfortably in the bed not communicative. Not in distress. Head exam: PRESENT: atraumatic Eye exam: PRESENT: PERRLA Mouth exam: PRESENT: moist, tongue midline Neck exam: ABSENT: carotid bruit, JVD, lymphadenopathy, thyromegaly Respiratory exam: PRESENT: clear to auscultation maykel. ABSENT: rales, rhonchi, wheezes Cardiovascular exam: PRESENT: irregular rhythm, tachycardia GI/Abdominal exam: PRESENT: soft, other - very sluggish bowel sounds present.. ABSENT: distended, guarding, mass, organolmegaly, rebound, tenderness Rectal exam: PRESENT: deferred Extremities exam: PRESENT: full ROM. ABSENT: calf tenderness, clubbing, pedal edema Neurological exam: ABSENT: oriented to person, oriented to place, oriented to time, oriented to situation Psychiatric exam: PRESENT: appropriate affect, normal mood. ABSENT: homicidal ideation, suicidal ideation Results Laboratory Results: 04/05/19 16:13 04/05/19 16:13 04/02/19 20:50 Blood Blood Culture - Final NO GROWTH IN 5 DAYS 04/02/19 20:00 Blood Blood Culture - Final NO GROWTH IN 5 DAYS 04/02/19 13:00 Blood Blood Culture - Final NO GROWTH IN 5 DAYS 04/02/19 04/02/19 04/02/19 12:35 12:35 22:56 Creatine Kinase 174 H CK-MB (CK-2) 0.91 Troponin I 0.049 0.034 NT-Pro-B Natriuret Pep 2870 H 04/03/19 05:41 Creatine Kinase CK-MB (CK-2) Troponin I 0.038 NT-Pro-B Natriuret Pep Impressions: Chest X-Ray 04/02/19 13:15 IMPRESSION: HEART ENLARGED WITHOUT FAILURE. NO OTHER SIGNIFICANT RADIOGRAPHIC FINDING IN THE CHEST. Assessment and Plan - Diagnosis (1) Acute respiratory failure with hypoxia Is this a current diagnosis for this admission?: Yes (2) Atrial fibrillation with RVR Is this a current diagnosis for this admission?: Yes (3) COPD exacerbation Is this a current diagnosis for this admission?: Yes (4) Chronic indwelling Anderson catheter Is this a current diagnosis for this admission?: Yes (5) DNR (do not resuscitate) Is this a current diagnosis for this admission?: Yes (6) UTI (urinary tract infection) Qualifiers: Urinary tract infection type: catheter-associated UTI Indwelling urinary catheter type: indwelling urethral catheter Encounter type: initial encounter Qualified Code(s): T83.511A - Infection and inflammatory reaction due to ind welling urethral catheter, initial encounter; N39.0 - Urinary tract infection, site not specified Is this a current diagnosis for this admission?: Yes (7) Hypotension Qualifiers: Hypotension type: unspecified hypotension type Qualified Code(s): I95.9 - Hypotension, unspecified Is this a current diagnosis for this admission?: Yes (8) Chronic combined systolic and diastolic CHF (congestive heart failure) Is this a current diagnosis for this admission?: Yes (9) Seizure disorder Is this a current diagnosis for this admission?: Yes (10) Need for comfort care Is this a current diagnosis for this admission?: Yes Plan: 04/06/2019 discussed the plan of care with the family members in the morning and also in the afternoon after the patient sent came here from [place] after a long prolonged discussion of the present condition poor prognosis , patients critical condition family decided to make him comfort care measures only. There is also requesting for hospice referral. Will place orders for comfort care measures including IV morphine, IV Ativan and scopolamine patch. 04/07/2019 hospice referral was made patient is presently on comfort care measures only receiving IV morphine, Ativan on PRN basis. 04/08/2019-patient is on comfort care measures only receiving IV morphine, IV Ativan on PRN basis, and scopolamine patch. Hospice referral was made.
--- NOTE | 2019-04-08 16:48 | PDOC DISCHARGE SUMMARY ---
Impression - Admit/DC Date/PCP Admission Date/Primary Care Provider: 04/02/19 17:49 GRICELDA RYAN MD Discharge Date: 04/08/19 - Discharge Diagnosis (1) Acute respiratory failure with hypoxia Is this a current diagnosis for this admission?: Yes (2) Atrial fibrillation with RVR Is this a current diagnosis for this admission?: Yes (3) COPD exacerbation Is this a current diagnosis for this admission?: Yes (4) Chronic indwelling Anderson catheter Is this a current diagnosis for this admission?: Yes (5) DNR (do not resuscitate) Is this a current diagnosis for this admission?: Yes (6) UTI (urinary tract infection) Is this a current diagnosis for this admission?: Yes (7) Hypotension Is this a current diagnosis for this admission?: Yes (8) Chronic combined systolic and diastolic CHF (congestive heart failure) Is this a current diagnosis for this admission?: Yes (9) Seizure disorder Is this a current diagnosis for this admission?: Yes (10) Need for comfort care Is this a current diagnosis for this admission?: Yes - Assessment Summary: (1) Acute respiratory failure with hypoxia Is this a current diagnosis for this admission?: Yes (2) Atrial fibrillation with RVR Is this a current diagnosis for this admission?: Yes (3) COPD exacerbation Is this a current diagnosis for this admission?: Yes (4) Chronic indwelling Anderson catheter Is this a current diagnosis for this admission?: Yes (5) DNR (do not resuscitate) Is this a current diagnosis for this admission?: Yes (6) UTI (urinary tract infection) Qualifiers: Urinary tract infection type: catheter-associated UTI Indwelling urinary catheter type: indwelling urethral catheter Encounter type: initial encounter Qualified Code(s): T83.511A - Infection and inflammatory reaction due to indwelling urethral catheter, initial encounter; N39.0 - Urinary tract infection, site not specified Is this a current diagnosis for this admission?: Yes (7) Hypotension Qualifiers: Hypotension type: unspecified hypotension type Qualified Code(s): I95.9 - Hypotension, unspecified Is this a current diagnosis for this admission?: Yes (8) Chronic combined systolic and diastolic CHF (congestive heart failure) Is this a current diagnosis for this admission?: Yes (9) Seizure disorder Is this a current diagnosis for this admission?: Yes (10) Need for comfort care 04/06/2019 discussed the plan of care with the family members in the morning and also in the afternoon after the patient sent came here from [place] after a long prolonged discussion of the present condition poor prognosis , patients critical condition family decided to make him comfort care measures only. There is also requesting for hospice referral. Will place orders for comfort care measures including IV morphine, IV Ativan and scopolamine patch. 04/07/2019 hospice referral was made patient is presently on comfort care measures only receiving IV morphine, Ativan on PRN basis. 04/08/2019-patient is on comfort care measures only receiving IV morphine, IV Ativan on PRN basis, and scopolamine patch. Hospice referral was made. - Additional Information Resuscitation Status: Do Not Resuscitate Discharge Diet: As Tolerated Referrals: GRICELDA RYAN MD [Primary Care Provider] - Follow up as needed History of Present Illiness History of Present Illness: JESENIA LÓPEZ is a 78 year old male 78 year old male past medical history of non-oxygen dependent COPD, atrial fibrillation, CHF, hypertension, posterior brain circulation aneurysm, seizure, CAD status post stent, multiple CVA, CKD, urinary retention with chronic Anderson catheter placement x3 years, dementia, who is a resident of half-way at [facility], brought to ED by EMS for evaluation of fever, low appetite, and A. fib RVR. Patient resting in bed seems to be in mild respiratory distress with with audible wheezing and productive cough however alert and oriented x3, does not provide much history due to his dementia, family at bedside stating that as per half-way patient has been having low appetite for the last 3 days and his heart rate has been uncontrolled. Patient denies any chest pain, nausea, vomiting, abdominal pain, headache, vision changes, constipation. In ED he was found to have uncontrolled A. fib, mildly elevated WBC and positive UA. Hospital Course Hospital Course: 78 year old male past medical history of non-oxygen dependent COPD, atrial fibrillation, CHF, hypertension, posterior brain circulation aneurysm, seizure, CAD status post stent, multiple CVA, CKD, urinary retention with chronic Anderson catheter placement x3 years, dementia, who is a resident of half-way at [facility], brought to ED by EMS for evaluation of fever, low appetite, and A. fib RVR. Patient resting in bed seems to be in mild respiratory distress with with audible wheezing and productive cough however alert and oriented x3, does not provide much history due to his dementia, family at bedside stating that as per half-way patient has been having low appetite for the last 3 days and his heart rate has been uncontrolled. Patient denies any chest pain, nausea, vomiting, abdominal pain, headache, vision changes, constipation. In ED he was found to have uncontrolled A. fib, mildly elevated WBC and positive UA. 04/03/2019. No acute events overnight. Patient comfortably sitting in bed no apparent distress, much improved compared to yesterday, alert and and oriented. Family at bedside. As per family patient used to live at a hospice and family was very happy with the care however he was transferred back to an assisted living that they are not happy about. Family would like to would like to transfer patient back to hospice if possible. 04/04/2018. No acute events overnight. 04/05/2019. Patient has been hypotensive and tachycardic most so today is received multiple dose of digoxin on top of being on Cardizem drip with no effect on his heart rate, was given 1 dose of IV Lasix and was started on dopamine drip however pressure still remained in the 90s. Patient does not seem to be in any severe distress, however appears to be somnolent but easily arousable and only oriented to person. Patient is DNR and I have contacted family updated them about his worsening vitals and they have mentioned that they may go ahead and make him [employer], however POA is at work and will not be able to come to the hospital until 8 PM. 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 04/06/2019 family decided to make him comfort care measures only. His CODE STATUS is already DNR/DNI. They are requesting for hospice consult. 04/07/2019-as per the family request patient is on comfort care measures only. Receiving IV morphine, IV Ativan on PRN basis and also scopolamine patch. Hospice referral was made. 04/08/2019 patient is on comfort care measures only. Hospice consult was requested. Physical Exam Vital Signs: Temp Pulse Resp BP Pulse Ox 97.3 F 70 17 152/101 H 95 04/08/19 08:10 04/08/19 08:10 04/08/19 08:10 04/08/19 08:10 04/08/19 08:10 Intake & Output 04/07/19 04/08/19 04/09/19 06:59 06:59 06:59 Intake Total 658 0 0 Output Total 1250 550 0 Balance -592 -550 0 Weight 78.4 kg 76.8 kg General appearance: PRESENT: no acute distress Head exam: PRESENT: atraumatic Eye exam: PRESENT: conjunctiva pale, PERRLA Mouth exam: PRESENT: moist, tongue midline Teeth exam: PRESENT: poor dentation Neck exam: ABSENT: carotid bruit, JVD, lymphadenopathy, thyromegaly Respiratory exam: PRESENT: clear to auscultation maykel. ABSENT: rales, rhonchi, wheezes Cardiovascular exam: PRESENT: irregular rhythm, tachycardia GI/Abdominal exam: PRESENT: soft, other - Very sluggish bowel sounds. ABSENT: distended, guarding, mass, organolmegaly, rebound, tenderness Extremities exam: PRESENT: full ROM. ABSENT: calf tenderness, clubbing, pedal edema Neurological exam: PRESENT: altered. ABSENT: awake, oriented to person, oriented to place, oriented to time, oriented to situation Results Laboratory Results: WBC 5.1 10^3/uL (4.0-10.5) 04/05/19 16:13 RBC 3.74 10^6/uL (4.35-5.55) L 04/05/19 16:13 Hgb 11.6 g/dL (13.5-17.0) L 04/05/19 16:13 Hct 34.5 % (37.9-51.0) L 04/05/19 16:13 MCV 92 fl (80-97) 04/05/19 16:13 MCH 31.0 pg (27.0-33.4) 04/05/19 16:13 MCHC 33.6 g/dL (32.0-36.0) 04/05/19 16:13 RDW 13.4 % (11.5-14.0) 04/05/19 16:13 Plt Count 207 10^3/uL (150-450) 04/05/19 16:13 Lymph % (Auto) 8.0 % (13-45) L 04/05/19 16:13 [place] % (Auto) 6.7 % (3-13) 04/05/19 16:13 Eos % (Auto) 0.0 % (0-6) 04/05/19 16:13 Baso % (Auto) 0.1 % (0-2) 04/05/19 16:13 Absolute Neuts (auto) 4.3 10^3/uL (1.7-8.2) 04/05/19 16:13 Absolute Lymphs (auto) 0.4 10^3/uL (0.5-4.7) L 04/05/19 16:13 Absolute Monos (auto) 0.3 10^3/uL (0.1-1.4) 04/05/19 16:13 Absolute Eos (auto) 0.0 10^3/uL (0.0-0.6) 04/05/19 16:13 Absolute Basos (auto) 0.0 10^3/uL (0.0-0.2) 04/05/19 16:13 Seg Neutrophils % 85.2 % (42-78) H 04/05/19 16:13 PT 14.9 SEC (11.4-15.4) 04/02/19 13:23 INR 1.16 04/02/19 13:23 Sodium 140.8 mmol/L (137-145) 04/05/19 16:13 Potassium 4.7 mmol/L (3.6-5.0) 04/05/19 16:13 Chloride 108 mmol/L (98-107) H 04/05/19 16:13 Carbon Dioxide 24 mmol/L (22-30) 04/05/19 16:13 Anion Gap 9 (5-19) 04/05/19 16:13 BUN 24 mg/dL (7-20) H 04/05/19 16:13 Creatinine 1.14 mg/dL (0.52-1.25) 04/05/19 16:13 Est GFR ( Amer) > 60 (>60) 04/05/19 16:13 Est GFR (MDRD) Non-Af > 60 (>60) 04/05/19 16:13 Glucose 130 mg/dL (75-110) H 04/05/19 16:13 POC Glucose 155 mg/dL (70-110) H 04/05/19 15:05 Lactic Acid 1.9 mmol/L (0.7-2.1) 04/02/19 20:00 Calcium 9.0 mg/dL (8.4-10.2) 04/05/19 16:13 Magnesium 2.6 mg/dL (1.6-2.3) H 04/03/19 05:41 Total Bilirubin 0.4 mg/dL (0.2-1.3) 04/05/19 16:13 Direct Bilirubin 0.4 mg/dL (0.0-0.4) 04/05/19 16:13 Neonat Total Bilirubin Not Reportable 04/05/19 16:13 Neonat Direct Bilirubin Not Reportable 04/05/19 16:13 Neonat Indirect Bili Not Reportable 04/05/19 16:13 AST 33 U/L (17-59) 04/05/19 16:13 ALT 26 U/L (<50) 04/05/19 16:13 Alkaline Phosphatase 56 U/L (38-126) 04/05/19 16:13 Creatine Kinase 174 U/L (55-170) H 04/02/19 12:35 CK-MB (CK-2) 0.91 ng/mL (<4.55) 04/02/19 12:35 Troponin I 0.038 ng/mL 04/03/19 05:41 NT-Pro-B Natriuret Pep 2870 pg/mL (<450) H 04/02/19 12:35 Total Protein 6.7 g/dL (6.3-8.2) 04/05/19 16:13 Albumin 3.3 g/dL (3.5-5.0) L 04/05/19 16:13 TSH 1.88 uIU/mL (0.47-4.68) 04/03/19 05:41 Free T4 1.16 ng/dL (0.78-2.19) 04/03/19 05:41 Urine Color YELLOW 04/02/19 13:23 Urine Appearance TURBID 04/02/19 13:23 Urine pH 9.0 (5.0-9.0) 04/02/19 13:23 Ur Specific Crum 1.027 04/02/19 13:23 Urine Protein >=500 mg/dL (NEGATIVE) H 04/02/19 13:23 Urine Glucose (UA) NEGATIVE mg/dL (NEGATIVE) 04/02/19 13:23 Urine Ketones NEGATIVE mg/dL (NEGATIVE) 04/02/19 13:23 Urine Blood NEGATIVE (NEGATIVE) 04/02/19 13:23 Urine Nitrite (Reflex) POSITIVE (NEGATIVE) H 04/02/19 13:23 Urine Bilirubin NEGATIVE (NEGATIVE) 04/02/19 13:23 Urine Urobilinogen NEGATIVE mg/dL (<2.0) 04/02/19 13:23 Leukocyte Esterase Rfl MODERATE (NEGATIVE) H 04/02/19 13:23 Urine WBC 5-10 /HPF 04/02/19 13:23 Triple Phos Crystals MANY /HPF 04/02/19 13:23 Amorphous Sediment TRACE 04/02/19 13:23 Urine Bacteria 2+ /HPF 04/02/19 13:23 Urine Ascorbic Acid NEGATIVE (NEGATIVE) 04/02/19 13:23 Digoxin 0.41 ng/mL (0.8-2.0) L 04/04/19 05:52 04/02/19 04/02/19 04/03/19 12:35 22:56 05:41 CK-MB (CK-2) 0.91 Troponin I 0.049 0.034 0.038 NT-Pro-B Natriuret Pep 2870 H Impressions: Chest X-Ray 04/02/19 13:15 IMPRESSION: HEART ENLARGED WITHOUT FAILURE. NO OTHER SIGNIFICANT RADIOGRAPHIC FINDING IN THE CHEST. Plan Plan of Treatment: Patient is going to hospice house Time Spent: Greater than 30 Minutes Stroke Is this a Stroke Patient?: No Acute Heart Failure - Is this a Heart Failure Patient?: No
[2019-04-08 17:35] VITALS: BP 105/73
== END 2019-04-08 20:05 | disposition hospice, inpatient (51) | DRG 190 ==
LOC: ER 13:07 → EH 17:49 → 3S 22:01
PROVIDERS: ADMIT Internal Medicine; ATTEND Internal Medicine
DX: J44.1 Chronic obstructive pulmonary disease with (acute) exacerbation (principal); J96.01 Acute respiratory failure with hypoxia; N17.9 Acute kidney failure, unspecified; I48.20 Chronic atrial fibrillation, unspecified; T83.511A Infection and inflammatory reaction due to indwelling urethral catheter, initial encounter; I50.42 Chronic combined systolic (congestive) and diastolic (congestive) heart failure; N39.0 Urinary tract infection, site not specified; I13.0 Hypertensive heart and chronic kidney disease with heart failure and stage 1 through stage 4 chronic kidney disease, or unspecified chronic kidney disease; I95.9 Hypotension, unspecified; F03.90 Unspecified dementia, unspecified severity, without behavioral disturbance, psychotic disturbance, mood disturbance, and anxiety; N18.9 Chronic kidney disease, unspecified; Z66 Do not resuscitate; Z51.5 Encounter for palliative care; G40.909 Epilepsy, unspecified, not intractable, without status epilepticus; R33.9 Retention of urine, unspecified; I25.10 Atherosclerotic heart disease of native coronary artery without angina pectoris; K21.9 Gastro-esophageal reflux disease without esophagitis; K44.9 Diaphragmatic hernia without obstruction or gangrene; B96.20 Unspecified Escherichia coli [E. coli] as the cause of diseases classified elsewhere; B96.4 Proteus (mirabilis) (morganii) as the cause of diseases classified elsewhere; B96.1 Klebsiella pneumoniae [K. pneumoniae] as the cause of diseases classified elsewhere; B96.5 Pseudomonas (aeruginosa) (mallei) (pseudomallei) as the cause of diseases classified elsewhere; E66.9 Obesity, unspecified; Z95.5 Presence of coronary angioplasty implant and graft; Z86.73 Personal history of transient ischemic attack (TIA), and cerebral infarction without residual deficits; I25.2 Old myocardial infarction; Z82.49 Family history of ischemic heart disease and other diseases of the circulatory system; Z87.440 Personal history of urinary (tract) infections
CPT/HCPCS: 36415; 71045; 80048; 80053; 80162; 81001; 82550; 82553; 82962; 83605; 83735; 83880; 84439; 84443; 84484; 85025; 85610; 87040; 87077; 87086; 87088; 87150; 87186; 93005; 93010; 94640; 96361; 96374; 96375; 99291; J0153; J1160; J1265; J1644; J1940; J2060; J2270; J2543; J2920; J3370; J3490; J7030; J7040; J7050; J7060; J7614